=== PATIENT | male | born 1950 | race Caucasian/White ===

== ENCOUNTER 2022-02-10 09:12 | Inpatient (IN) | payer MEDICARE, OTHER ==
[~2022-02-10] VITALS: Ht 165.1 cm; Wt 68.8 kg
[2022-02-10] MEDS ORDERED: LACTULOSE SYRUP 10GM/15ML (ENULOSE) 30ML UDC PO PRN (11:45)
[2022-02-10] MEDS ORDERED: guaiFENesin/CODEINE (ROBITUSSIN AC) 10ML UDC PO PRN (11:45)
[2022-02-10] MEDS ORDERED: LOPERAMIDE 2 MG (IMODIUM) TABLET PO PRN (11:45)
[2022-02-10] MEDS ORDERED: diphenhydrAMINE 25 MG TAB (BENADRYL) PO PRN (11:45)
[2022-02-10] MEDS ORDERED: FLEET ENEMA ADULT 1 EA BTL PR PRN (11:45)
[2022-02-10] MEDS ORDERED: CALCIUM CARBONATE 500 MG (TUMS) TAB.CHEW PO PRN (11:45)
[2022-02-10] MEDS ORDERED: ONDANSETRON 4 MG (ZOFRAN) ORAL DISSOLVE TAB PO PRN (11:45)
[2022-02-10] MEDS ORDERED: DOCUSATE SODIUM 100 MG (COLACE) CAP PO PRN (11:45)
[2022-02-10] MEDS ORDERED: BISACODYL 10 MG SUPP (DULCOLAX) PR PRN (11:45)
[2022-02-10] MEDS ORDERED: ALPRAZolam 0.25 MG (XANAX) TAB PO PRN (11:45)
[2022-02-10] MEDS ORDERED: AMIO200T65 PO (12:44)
[2022-02-10] MEDS ORDERED: POTA-53 PO (12:44)
[2022-02-10] MEDS ORDERED: APIX5TAB PO (12:44)
[2022-02-10] MEDS ORDERED: GLIM4TAB5 PO (12:44)
[2022-02-10] MEDS ORDERED: PANT40TA52 PO (12:44)
[2022-02-10] MEDS ORDERED: FURO80TA3 PO (12:44)
[2022-02-10] MEDS ORDERED: CHOL100048 PO (12:44)
[2022-02-10] MEDS ORDERED: MTP25TSR PO (12:44)
[2022-02-10] MEDS ORDERED: LOSA50TA63 PO (12:44)
[2022-02-10] MEDS ORDERED: ATOR20TA66 PO (12:44)
[2022-02-10] MEDS ORDERED: LEVO100T7 PO (12:44)
[2022-02-10] MEDS ORDERED: CLOP75TA69 PO (12:44)
[2022-02-10] MEDS ORDERED: METF-397 PO (12:44)
[2022-02-10] MEDS ORDERED: HYDR-3820 PO (12:44)
[2022-02-10 14:30] VITALS: BP 127/53
--- NOTE | 2022-02-10 14:51 | Occupational Therapy Eval ---
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 Pt transferred to ARU 02/10/22 for skilled therapy and medication management. Social History Home: Single Level Current Living Status: Spouse Entry Into Home: Stairs With Railing Steps Into Home: 4 ADL-Prior Level of Function SCALE: Activities may be completed with or without assistive devices. 2-Jrmnsfowrz-urjdxlg completes the activity by him/herself with no assistance from a helper. 5-Set-up or Clean-up Assistance-helper sets up or cleans up; patient completes activity. Harrison assists only prior to or following the activity. 4-Supervision or Touching Assistance-helper provides verbal cues and/or touching/steadying and/or contact guard assistance as patient completes activity. Assistance may be provided throughout the activity or intermittently. 3-Partial/Moderate Assistance-helper does LESS THAN HALF the effort. Harrison lifts, holds or supports trunk or limbs, but provides less than half the effort. 2-Substantial/Maximal Assistance-helper does MORE THAN HALF the effort. Harrison lifts or holds trunk or limbs and provides more than half the effort. 8-Teyixlieh-xjexfq does ALL the effort. Patient does none of the effort to complete the activity. Or, the assistance of 2 or more helpers is required for the patient to complete the activity. If activity was not attempted, code reason: 7-Patient Refused. 9-Not Applicable-not attempted and the patient did not perform the activity befo re the current illness, exacerbation or injury. 10-Not Attempted due to Environmental Limitations-(lack of equipment, weather re straints, etc.). 88-Not Attempted due to Medical Conditions or Safety Concerns. ADL PLOF Comments Pt reports requiring assistance with ADLs at PLOF, using a walker and w/c for functional mobility. His assists with showering, UE/LE dressing, and footwear, pt able to complete toileting, oral care and eating independently. He has a walk in shower with SC, GBS and hand held shower head Self Care: Needed Some Help Functional Cognition: Independent DME/Equipment: Bath Chair, Grab Bars, Shower, Shower Hose Chief Projectionist DME/Equipment Comments walker, w/c OT Current Status Subjective Pt agreeable to OT evaluation, then OT/PT cotreat. Rates pain 3-4/10 in L stump Mental Status/Objective Patient Orientation: Person, Place, Situation Attachments: Other-See Comments (stump immobilizer L) Current Glasses/Contacts: No Hearing Aids: No Dentures/Partials: No Hand Dominance: Right Upper Extremity ROM Decreased shoulder movement bilaterally (pt's PLOF). WFL at elbow/wrist/fingers. RUE shoulder abduction to approx 40 degrees, LUE approx 20 degrees. Upper Extremity Coordination WFL Upper Extremity Sensation Tingling/numbness bilateral hands/fingers. Upper Extremity Strength grossly 2+/5 BUEs ADL-Treatment Eating (QC): 6 (per pt report) Oral Hygiene (QC): 5 (per pt report) Shower/Bathe Self (QC): 3 (Min A with sponge bath at bed level, pt required assistance washing buttocks.) Upper Body Dressing (QC): 3 (Mod A overall. Max A doffing shirt at bed level, min A donning shirt overhead at EOB.) Lower Body Dressing (QC): 2 (Max A donning/doffing pants at bed level. Total assist would be required with stump immobilizer) On/Off Footwear (QC): 3 (Min A donning/doffing R gripper sock.) Toileting Hygiene (QC): 2 (Max A at bed level with clothing management and posterior hygiene. Pt able to complete pericare.) Other Treatments OT evaluation complete. OT/PT cotreat due to skill of 2 clinicians required which a rehabilitation case coordinator could not perform in order to coordinate UE/LEs, decrease fall risk, and due to pt's limitations in strength, activity tolerance, transfers and mobility. Pt completed sponge bath and dressing at bed level. Transferred supine to sit EOB, then SPT to w/c. Pt performed w/c mobility in hallways, then to therapy gym. Pt stood x3 in parallel bars, attempted to take steps "hopping" on R foot with stands, seated rest breaks between trials. Pt then seated exercises, with focus on strengthening muscles in preparation for standing tasks. Pt stood in parallel bars, completing reaching task while standing. Pt attempted to reach for objects on L side and transition them across midline towards R side, but pt had difficulty. On the next stand, pt focused on just removing 1 hand from the bar at a time, pt had difficulty removing L hand from parallel bar, only able to complete with R, x5 reps, min A with standing balance. Pt propelled w/c around SDU common area, then back to his room. SPT to recliner, mod A. Post tx, pt in recliner, call light in reach and all needs met. Education OT Patient Education: Correct positioning, Energy conservation, Modified ADL techniques, Progress toward Goal/Update tx plan, Purpose of tx/functional activities, Rehab process Teaching Recipient: Patient Teaching Methods: Discussion Response to Teaching: Verbalize Understanding OT Short Term Goals Short Term Goals Time Frame: Feb 24, 2022 Shower/bathe self: 3 Lower body dressin OT Radio Dispatcher Goals Radio Dispatcher Goals Time Frame: Mar 10, 2022 Eating (QC): 6 Oral Hygiene (QC): 6 Toileting Hygiene (QC): 6 Shower/Bathe Self (QC): 4 Upper Body Dressing (QC): 4 Lower Body Dressing (QC): 3 On/Off Footwear (QC): 3 Additional Goals: 1-Demonstrate ADL Tasks, 2-Verbalize Understanding, 3- ImproveStrength/Lalit 1=Demonstrate adherence to instructed precautions during ADL tasks. 2=Patient will verbalize/demonstrate understanding of assistive devices/modifications for ADL. 3=Patient will improve strength/tolerance for activity to enable patient to perform ADL's. OT Education/Plan Problem List/Assessment Assessment: Decreased Activ Tolerance, Decreased UE Strength, Dependent Transfers, Impaired Bed Mobility, Impaired Funct Balance, Impaired I ADL's, Impaired Self-Care Skills, Restricted Funct UE ROM Discharge Recommendations Plan/Recommendations: Continue POC Treatment Plan/Plan of Care Patient would benefit from OT for education, treatment and training to promote independence in ADL's, mobility, safety and/or upper extremity function for ADL's. Plan of Care: ADL Retraining, Functional Mobility, Group Exercise/Act as Ind, UE Funct Exercise/Act, UE Neuromus Re-Ed/Coord, W/C Management Training Treatment Duration: Mar 10, 2022 Frequency: At least 5 of 7 days/Wk (IRF) Estimated Hrs Per Day: 1.5 hours per day Agreement: Yes Rehab Potential: Fair Time/GCodes Start Time: 14:10 Stop Time: 15:40 Total Time Billed (hr/min): 90 Billed Treatment Time 0439-3233 OT eval, [id number] OT/PT cotreat 1, EVM (10'), ADL 2 (30'), FA 3 (50') OCTAVIA ORLANDO OT Feb 10, 2022 14:51
--- NOTE | 2022-02-10 15:34 | Physical Therapy Evaluation ---
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 Pt transferred to ARU 02/10/22 for skilled therapy and medication management. Reviewed History: Yes Social History Home: Single Level Current Living Status: Spouse Entry Into Home: Stairs With Railing PT Steps Into Home: 4 Prior Prior Level of Function SCALE: Activities may be completed with or without assistive devices. 2-Htzcmvluhy-wezzkcg completes the activity by him/herself with no assistance from a helper. 5-Set-up or Clean-up Assistance-helper sets up or cleans up; patient completes activity. Poyntelle assists only prior to or following the activity. 4-Supervision or Touching Assistance-helper provides verbal cues and/or touching/steadying and/or contact guard assistance as patient completes activity. Assistance may be provided throughout the activity or intermittently. 3-Partial/Moderate Assistance-helper does LESS THAN HALF the effort. Poyntelle lifts, holds or supports trunk or limbs, but provides less than half the effort. 2-Substantial/Maximal Assistance-helper does MORE THAN HALF the effort. Poyntelle lifts or holds trunk or limbs and provides more than half the effort. 1-Bshzhqqrk-sdriyj does ALL the effort. Patient does none of the effort to complete the activity. Or, the assistance of 2 or more helpers is required for the patient to complete the activity. If activity was not attempted, code reason: 7-Patient Refused. 9-Not Applicable-not attempted and the patient did not perform the activity before the current illness, exacerbation or injury. 10-Not Attempted due to Environmental Limitations-(lack of equipment, weather restraints, etc.). 88-Not Attempted due to Medical Conditions or Safety Concerns. Bed Mobility: 6 Transfers (B,C,W/C): 3 Gait: 3 Stairs: 3 Wheelchair Mobility: 6 Indoor Mobility (Ambulation): Needed Some Help Stairs: Needed Some Help Prior Devices Use: Manual wheelchair, Walker PT Evaluation-Current Subjective Patient in bed pre tx, agrees to PT, has 3/10 pain in left residual limb. Will be co-treating with OT for part of tx due to poor patient mobility, strength, endurance, severe debility, coordinate UE and LE during activity, safety and reduce risk of falls. Pt/Family Goals to be independent at home Objective Patient Orientation: Person, Place, Situation ROM/Strength ROM Lower Extremities WNL, except left knee is in immobilizer Strength Lower Extremities RLE (hip flexion 3+/5, knee flexion 3+/5, knee extension 4-/5, dorsiflexion 3/5), LLE hip flexion 3+/5 Integumentary/Posture Integumentary see nurse notes Sensory Vision: Functional Hearing: Functional Hand Dominance: Right Sensation Right Lower Extremit: Impaired Sensation Left Lower Extremity: Impaired Transfers Roll Left & Right (QC): 4 Sit to Lying (QC): 3 Lying to Sitting/Side of Bed(Q: 3 Sit to Stand (QC): 3 Chair/Orp-gq-Pviio Xfer(QC): 3 Toilet Transfer (QC): 3 Car Transfer (QC): 3 Patient performed rolling with SBA, supine <-> sit mod assist, sit <-> stand and transfers mod assist, car transfer mod assist. Patient used a RW for transfers, was able to pivot on right foot with some difficulty. Gait Does the Patient Walk?: Yes Mode of Locomotion: Both Anticipated Mode of Locomotion: Both Walk 10 feet (QC): 88 Walk 50 ft with 2 Turns(QC): 88 Walk 150 ft (QC): 88 Walking 10ft/uneven surface-QC: 88 Distance: 2'x3 Gait Assistive Device: Parallel Bars Comments/Gait Description Patient can ambulate 2' in the parallel bars with mod assist, patient can take a few small hops with right foot, poor foot clearance Wheelchair Training Does the Pt Use a Wheelchair?: Yes Distance: 150'x2 Wheel 50 ft with 2 turns (QC): 4 Wheel 150 ft (QC): 4 Type of Wheelchair: Manual SBA Stairs 1 Step (curb) (QC): 88 4 Steps (QC): 88 12 Steps (QC): 88 Balance Sitting Static: Fair Sitting Dynamic: Fair Standing Static: Poor Standing Dynamic: Poor Picking up an Object (QC): 88 Treatment Dressing and bathing, manually resisted leg press 3 sets of 10, standing activity in parallel bars working on letting go with one hand/alternating. PT performed bed mobility and transfer training, WC mobility, ambulation, standing and balance and positioning during dressing and bathing, standing during standing activity, LE strengthening, OT performed bathing, dressing, standing activity, UE positioning and safety during activity. Assessment/Needs Patient in recliner post tx with nurse call, phone, tray, all needs met. Patient has impaired mobility, strength, endurance, balance. Patient needs mod assist for sit to stand and transfers. Good motivation. Rehab Potential: Fair PT Short Term Goals Short Term Goals Time Frame: Feb 17, 2022 Roll Left & Right: 6 Sit to lyin (Batsheva) Lying to sitting on side of be: 3 (Batsheva) Sit to stand: 3 (Batsheva) Chair/vpu-cx-dkedc transfer: 3 Walk 10 feet: 3 (Batsheva) PT Train Operations Manager Goals Train Operations Manager Goals PT [facility] Goals Time Frame: Mar 03, 2022 Roll Left & Right (QC): 6 Sit to Lying (QC): 4 (CGA) Lying-Sitting on Side/Bed(QC): 4 (CGA) Sit to Stand (QC): 4 (CGA) Chair/Kkh-ym-Ylsyy Xfer(QC): 4 (CGA) Toilet Transfer (QC): 4 (CGA) Car Transfer (QC): 4 (CGA) Does the Patient Walk: Yes Walk 10 feet (QC): 4 (CGA) Walk 50ft with 2 Turns (QC): 88 Walk 150 ft (QC): 88 Walking 10ft on Uneven Surface: 4 (CGA) 1 Step (curb) (QC): 88 4 Steps (QC): 88 12 Steps (QC): 88 Picking up an Object (QC): 4 (CGA) Wheel 50 feet with 2 turns (QC: 6 Wheel 150 feet: 6 PT Plan Problem List Problem List: Activity Tolerance, Functional Strength, Safety, Balance, Gait, Transfer, Bed Mobility, ROM Treatment/Plan Treatment Plan: Continue Plan of Care Treatment Plan: Bed Mobility, Education, Functional Activity Lalit, Functional Strength, Group Therapy, Gait, Safety, Therapeutic Exercise, Transfers Treatment Duration: Mar 03, 2022 Frequency: At least 5 of 7 days/Wk (IRF) Estimated Hrs Per Day: 1.5 hours per day Patient and/or Family Agrees t: Yes Safety Risks/Education Patient Education: Gait Training, Transfer Techniques, W/C Management, Safety Issues Teaching Recipient: Patient Teaching Methods: Demonstration, Discussion Response to Teaching: Reinforcement Needed Discharge Recommendations Plan Patient will perform bed mobility and transfer training, balance and endurance training, functional strengthening, stair training, gait training, and education, to improve functional mobility and independence at home. Therapy Discharge Recommendati: Scheduled Assistance, Home & Family, Post Acute PT Time/GCodes Time In: 1400 Time Out: 1540 Total Billed Treatment Time: 90 Total Billed Treatment 1 visit EVM 10' FA 80' PT eval from [id number], OT eval from [id number], co-treat from [id number] JESSICA FOX PT Feb 10, 2022 15:34
--- NOTE | 2022-02-10 15:36 | PM&R Post Admission Assessment ---
PM&R HP Date of Visit: Feb 10, 2022 Time of Visit: 16:00 History of Present Illness CC: Left BKA HPI: This is a 71yoWM clinic patient of Dr Lai in [place] and Dr [facility] [place] who presents to ARU following a left BKA on 02/07/22 following vascular procedure of left leg who is in need of assistive devices and aggressive rehab in order to return home to live independently. He is currently constipated and obtains good pain control with Hydrocodone. I have reviewed his home meds and restarted all. Voiding well due to Lasix. PLOF was independent without use of assistive devices. CLOF moderate assist with bed mobility and maximum assist with sit to stand and total dependence in transfers. Past Dagubid-Luyoay-Iefwcf Hx Past Med/Social Hx: Reviewed Nursing Past Med/Soc Hx, Reviewed and Corrections made Patient Social History Marrital Status: Employed/Student: retired Alcohol Use: Denies Use Smoking Status: Never a Smoker Past Medical History Surgeries: Orthopedic Cardiac: Atrial Fibrillation, Chronic Edema/Swelling, Coronary Artery Disease, High Cholesterol, Hypertension, Peripheral Vascular Neurological: Neuropathy Genitourinary: Benign Prostatic Hyperpl Gastrointestinal: Gastroesophageal Reflux Musculoskeletal: Amputee, Arthritis Endocrine: Hypothyroidsim, Diabetes, Non-Insulin dep Self Care: Needed Some Help Functional Cognition: Independent Eatin (per pt report) Oral Hygiene: 5 (per pt report) Shower/Bathe Self: 3 (Min A with sponge bath at bed level, pt required assistance washing buttocks.) Upper Body Dressin (Mod A overall. Max A doffing shirt at bed level, min A donning shirt overhead at EOB.) Lower Body Dressin (Max A donning/doffing pants at bed level. Total assist would be required with stump immobilizer) On/Off Footwear: 3 (Min A donning/doffing R gripper sock.) Toileting Hygiene: 2 (Max A at bed level with clothing management and posterior hygiene. Pt able to complete pericare.) PM&R Allergy/Meds/Data Review Allergies Coded Allergies: lisinopril (Verified Allergy, Unknown, 02/10/22) niacin (Verified Allergy, Unknown, 02/10/22) oxycodone (Verified Allergy, Unknown, 02/10/22) rivaroxaban (Verified Allergy, Unknown, 02/10/22) Uncoded Allergies: CI Pigment Blue 63 (Adverse Reaction, Severe, Itching, 02/10/22) Home Medications Scheduled Amiodarone HCl (Amiodarone HCl), 200 MG PO DAILY, (Reported) Apixaban (Eliquis), 5 MG PO BID, (Reported) Atorvastatin Calcium (Atorvastatin Calcium), 20 MG PO DAILY, (Reported) Cholecalciferol (Vitamin D3) (Vitamin D3), 25 MCG PO DAILY, (Reported) Clopidogrel Bisulfate (Plavix), 75 MG PO DAILY, (Reported) Furosemide (Furosemide), 80 MG PO DAILY, (Reported) Glimepiride (Glimepiride), 4 MG PO BID, (Reported) Levothyroxine Sodium (Levothyroxine Sodium), 100 MCG PO DAILY, (Reported) Losartan Potassium (Losartan Potassium), 50 MG PO DAILY, (Reported) Metformin HCl (Metformin HCl), 500 MG PO QID, (Reported) Metoprolol Succinate (Metoprolol Succinate), 25 MG PO DAILY, (Reported) Pantoprazole Sodium (Pantoprazole Sodium), 40 MG PO DAILY, (Reported) Potassium Chloride (K-Tab ER), 20 MEQ PO TID, (Reported) Scheduled PRN Hydrocodone/Acetaminophen (Hydrocodone-Acetamin 10-325 mg), 1 EACH PO Q6H PRN for PAIN-MODERATE (5-7), (Reported) Current Medications Current Medications Reviewed Review of Systems Constitutional: see HPI, malaise, weakness EENTM: no symptoms reported Respiratory: no symptoms reported Cardiovascular: no symptoms reported Gastrointestinal: constipation Genitourinary: no symptoms reported Musculoskeletal: no symptoms reported Skin: no symptoms reported Psychiatric/Neurological: No Symptoms Reported All Other Systems Reviewed Negative Unless Noted: Yes Physical Exam Physical Exam Vital Signs Capillary Refill : Height, Weight, BMI Height: '" Weight: lbs. oz. kg; BMI Method: General Appearance: No Apparent Distress, WD/WN, Chronically ill Eyes: Bilateral Eye Normal Inspection, Bilateral Eye PERRL HEENT: PERRL/EOMI, Normal ENT Inspection, Pharynx Normal Neck: Full Range of Motion, Normal Inspection, Non Tender, Supple, Carotid Bruit Respiratory: Chest Non Tender, Lungs Clear, Normal Breath Sounds, No Accessory Muscle Use, No Respiratory Distress Cardiovascular: No Edema, No Gallop, No JVD, No Murmur, Normal Peripheral Pulses, Irregularly Irregular Gastrointestinal: Normal Bowel Sounds, No Organomegaly, No Pulsatile Mass, Non Tender, Soft Back: Normal Inspection, No CVA Tenderness, No Vertebral Tenderness Extremity: Normal Capillary Refill, Normal Inspection, Normal Range of Motion, Non Tender, No Calf Tenderness, No Pedal Edema Neurologic/Psychiatric: Alert, Oriented x3, Normal Mood/Affect, body worker II-XII Norm as Tested, Abnormal Gait, Motor Weakness (left sided lower extremity BKA) Skin: Normal Color, Warm/Dry Lymphatic: No Adenopathy PM&R Medical Assessment & Plan REHAB/MEDICAL ASSESSMENT AND PLAN: REHAB IMPAIRMENT GROUP: [facility] ETIOLOGIC DIAGNOSIS: [facility] The comorbidities that impact the patients function and/or functional outcome by: left BKA, fall risk, dependence on transfers with sit to stand REHAB PLAN: The patient is being admitted to our comprehensive inpatient rehabilitation facility and can tolerate the intensity of service consisting of at least: 180 minutes of therapy a day, 5 out of 7 days a week Rehab treatment will consist of: PT OT will focus on regaining function in order to regain enough independence in order to return home with The patient/family has a good understanding of our discharge process and will benefit from an interdisciplinary inpatient rehabilitation program. The patient has potential to make improvement and is in need of at least two of the following multidisciplinary therapies including but not limited to physical, occupational, speech, and prosthetics and orthotics. Additionally the patient will need services from respiratory, nutritional services, wound care, psychology, etc. (Customize this to each patient). Given the patients complex condition and risk of further medical complications, rehabilitation services cannot be safely or effectively provided at a lower level of care such as a senior care facility. BARRIERS TO DISCHARGE: [facility] ESTIMATED LOS: 14 days DISPOSITION: Home RELEVANT CHANGES SINCE PREADMISSION SCREENING: I have compared the patients medical and functional status at the time of the preadmission screening and there are: no changes PROGNOSIS: Good REHABILITATION GOALS: 1.PT OT will focus on regaining function in order to regain enough independence in order to return home with All the above goals were reviewed with the patient and he/she is in agreement. By signing this document, I acknowledge that I have personally performed a full physical examination on this patient within 24 hours of admission to this inpatient rehabilitation facility and have determined the patient to be able to tolerate the above course of treatment at an intensive level for a reasonable period of time. I will be completing a detailed individualized Plan of Care for this patient by day #4 of the patients stay based upon the Preadmission Screen, the Post-Admission Evaluation, and the therapy evaluations. Admission Dx/Comorbidities: (1) Amputation of left lower extremity below knee ICD Codes: S88.112A - Complete traumatic amputation at level between knee and ankle, left lower leg, initial encounter Assessment/Plan Assessment and Plan Assess & Plan/Chief Complaint Assessment: GEORGINA 02/07/22 Severe PVD PAF OAC HTN HLP DM Hypothyroidism Plan: Home meds SSI PT OT Pain control BM treatment XIOMARA DICKENS DO Feb 10, 2022 15:36
[2022-02-10] MEDS: inSUlin ASPART (NovoLOG) 1 UNIT/0.01 ML (CHARGE PER UNIT) SC SCH ×2 (17:39→20:55)
[2022-02-10] MEDS: KCL 20 MEQ TAB (K-DUR) PO SCH (17:39)
[2022-02-10] MEDS: metFORMIN 500 MG (GLUCOPHAGE) TAB PO SCH ×2 (17:39→20:48)
[2022-02-10] MEDS: GLIMEPIRIDE 4 MG (AMARYL) TAB PO SCH (17:39)
[2022-02-10 20:13] VITALS: BP 127/46
[2022-02-10] MEDS: polyethylene glycoL POWDER 17 GM (MIRALAX) PACK PO SCH (20:46)
[2022-02-10] MEDS: APIXABAN 5 MG (ELIQUIS) TABLET PO SCH (20:48)
[2022-02-10] MEDS: DOCUSATE SODIUM 100 MG (COLACE) CAP PO SCH (20:48)
[2022-02-10] MEDS: SENNA W/DOCUSATE (SENOKOT S) TABLET PO SCH (20:55)
[2022-02-10] MEDS ORDERED: NON-FORMULARY MEDICATION 1 EA EA (Potassium Chloride (K-Tab ER) 20 MEQ) PO SCH (21:00)
[2022-02-11] MEDS: LEVOTHYROXINE 100 MCG (LEVOTHROID) TAB PO SCH (05:42)
[2022-02-11 05:55] LABS: BASOPHILS % (AUTO) 0 % (0-10); EOSINOPHILS # (AUTO) 0.1 10^3/uL (0.0-0.3); EOSINOPHILS % (AUTO) 1 % (0-10); HEMATOCRIT 36 % (40-54); HEMOGLOBIN 10.8 g/dL (13.3-17.7); LYMPHOCYTES # (AUTO) 1.2 10^3/uL (1.0-4.0); LYMPHOCYTES % (AUTO) 12 % (12-44); MEAN CORPUSCULAR HEMOGLOBIN 25 pg (25-34); MEAN CORPUSCULAR HGB CONC 30 g/dL (32-36); MEAN CORPUSCULAR VOLUME 83 fL (80-99); MEAN PLATELET VOLUME 11.4 fL (9.0-12.2); MONOCYTES # (AUTO) 0.9 10^3/uL (0.0-1.0); MONOCYTES % (AUTO) 9 % (0-12); NEUTROPHILS # (AUTO) 7.7 10^3/uL (1.8-7.8); NEUTROPHILS % (AUTO) 78 % (42-75); PLATELET COUNT 228 10^3/uL (130-400); WHITE BLOOD COUNT 9.9 10^3/uL (4.3-11.0)
[2022-02-11 06:04] LABS: ALBUMIN 3.3 GM/DL (3.2-4.5); POTASSIUM 3.7 MMOL/L (3.6-5.0)
[2022-02-11 06:05] LABS: CALCIUM 9.3 MG/DL (8.5-10.1)
[2022-02-11 06:07] LABS: TOTAL PROTEIN 7.3 GM/DL (6.4-8.2)
--- NOTE | 2022-02-11 06:07 | Individualized Plan of Care ---
Individualized Plan of Care Rehab Nursing IPOC Order Admission Date Feb 10, 2022 at 14:00 Current Orders Orders Admission Order(Inpt,Obs,Sdc) (02/10/22 11:40) Vital Signs: Per Unit Policy ( 08,16,00 (02/10/22 11:40) Jay Jay Roa (02/10/22 11:40) Sequential Compression Device (02/10/22 11:40) Cutting Room Supervisor-Inpt Rehab Con (02/10/22 11:40) Rehab Nursing Orders-Ipoc (02/10/22 11:40) Physical Therapy Rehab Orders (02/10/22 11:40) Occupational Therapy Rehab Ord (02/10/22 11:40) Speech Therapy Rehab Orders (02/10/22 11:40) Cbc With Automated Diff (02/11/22 06:00) Comprehensive Metabolic Panel (02/11/22 06:00) Precautions (Aru) (02/10/22 11:40) Weekly Weight WEEK (02/10/22 11:40) Rehab-Intensity Of Therapy (02/10/22 11:40) Initiate Admission Nursing Pro .admission (02/10/22 11:40) Alprazolam Tablet (Xanax Tablet) (02/10/22 11:45) Calcium Carbonate Chew Tablet (Antacid C (02/10/22 11:45) Diphenhydramine Tablet (Benadryl Tablet) (02/10/22 11:45) Docusate Sodium Capsule (Colace Capsule) (02/10/22 21:00) Docusate Sodium Capsule (Colace Capsule) (02/10/22 11:45) Bisacodyl Suppository (Dulcolax Supposit (02/10/22 11:45) Lactulose Oral Solution (Enulose Oral So (02/10/22 11:45) Na Phos/Na Biphos Enema (Fleet Enema Thomas (02/10/22 11:45) Guaifenesin/Codeine Syrup (Robitussin Ac (02/10/22 11:45) Loperamide Tablet (Imodium Tablet) (02/10/22 11:45) Melatonin Tablet (Melatonin Tablet) (02/10/22 11:45) Polyethylene Glycol Powder Pkt (Miralax (02/10/22 21:00) Ondansetron Oral Dissolve Tab (Zofran (02/10/22 11:45) Senna S Tablet (Senokot S Tablet) (02/10/22 21:00) Acetaminophen Tablet/Caplet (Tylenol T (02/10/22 11:45) Code/Resuscitation (02/10/22 11:40) Initiate Admission Nursing Pro .admission (02/10/22 11:40) Admission Arrival Bed Request (02/10/22 14:04) Patient Visit (02/10/22 ) Pt Eval Moderate Complexity (02/10/22 ) Functional Activities, Ea 15 (02/10/22 ) Amiodarone Tablet (Cordarone Tablet) (02/11/22 09:00) Apixaban Tablet (Eliquis Tablet) (02/10/22 21:00) Atorvastatin Tablet (Lipitor Tablet) (02/11/22 09:00) Clopidogrel Tablet (Plavix Tablet) (02/11/22 09:00) Glimepiride Tablet (Amaryl Tablet) (02/10/22 18:00) Hydrocodone/Apap 10/325 Tablet (Lortab 1 (02/10/22 15:45) Levothyroxine Tablet (Synthroid Tablet) (02/11/22 06:30) Losartan Tablet (Cozaar Tablet) (02/11/22 09:00) Metformin Tablet (Glucophage Tablet) (02/10/22 17:00) Metoprolol Succinate (Xl) Tab (Toprol Xl (02/11/22 09:00) Pantoprazole Tablet (Protonix Tablet) (02/11/22 09:00) (Nf) Cholecalciferol (Vitamin D3) (Vitam (02/11/22 09:00) (Nf) Furosemide (02/11/22 09:00) (Nf) Potassium Chloride (K-Tab Er) (02/10/22 21:00) Accucheck Achs ACHS (02/10/22 15:41) Insulin Aspart (Novolog) (Novolog (Charg (02/10/22 16:00) Potassium Chloride (Tablet) (K Dur Table (02/10/22 18:00) Furosemide Tablet (Lasix Tablet) (02/11/22 09:00) Cholecalciferol Capsule/Tablet (Vitamin (02/11/22 09:00) Cho 75g/M 1snack (21-2400 William) (02/10/22 Dinner) Patient Visit (02/11/22 ) Functional Activities, Ea 15 (02/11/22 ) Exercise Therap, Ea 15 Min (02/11/22 ) Magnesium Citrate Oral Soln (Citrate Of (02/11/22 12:30) Consult Podiatry (02/11/22 12:29) Consult Wound Care Physician (02/11/22 12:29) Rehab Nursing Orders: Ongoing Assess. of Function Status, Bladder Management, Bladder Scan, Bladder Training, Bowel Management, Bowel Training, Disease Management & Educaiton, DVT Prophylaxis, Fall Prevention, Fluid/Electrolyte/Nutrition Mgmt, Infection Prevention, Medication Management & Education, Management of Risks & Complications, Management of Skin Intergrity, Nutrition Management, Pain Management, Patient/Family Support, Safety Management, Wound Management Intensity of Therapy to be met Patient to be seen: Min.3h per day/5 of 7d PT IPOC Problem List: Activity Tolerance, Functional Strength, Safety, Balance, Gait, Transfer, Bed Mobility, ROM Treatment Plan: Continue Plan of Care Bed Mobility, Education, Functional Activity Lalit, Functional Strength, Group Therapy, Gait, Safety, Therapeutic Exercise, Transfers Treatment Duration: Mar 03, 2022 Frequency: At least 5 of 7 days/Wk (IRF) Estimated Hrs Per Day: 1.5 hours per day OT IPOC Problems: Decreased Activ Tolerance, Decreased UE Strength, Dependent Transfers, Impaired Bed Mobility, Impaired Funct Balance, Impaired I ADL's, Impaired Self-Care Skills, Restricted Funct UE ROM OT Treatment, Training and Edu: Yes Plan of Care: ADL Retraining, Functional Mobility, Group Exercise/Act as Ind, UE Funct Exercise/Act, UE Neuromus Re-Ed/Coord, W/C Management Training Treatment Duration: Mar 10, 2022 Frequency: At least 5 of 7 days/Wk (IRF) Estimated Hrs Per Day: 1.[address] IPOC Speech Therapy Treatment Plan: Discontinue ST Treatment Duration: Feb 10, 2022 Frequency: Modified Program (IRF) Estimated Hrs Per Day: Other Cutting Room Supervisor/Case Mgmt Cutting Room Supervisor/Case Managemen: Discharge Planning Dietitian/Assessment Nurse Practitioner Dietitian/Assessment Nurse Practitioner to monitor nutritional status and make changes and/or recommendations as needed and work with speech pathology on dietary upgrades as the occur. Physician IPOC Medical Issues being managed closely and that require the 24 hour availability of a physician: Complicated cardiac history with diabetes and hypoglycemia episodes with recent left below the knee amputation will require close monitoring for any decompensation Medical Issues: Bowel/Bladder Function, DVT Prophylaxis, Falls Precautions, Fluid/Electrolyte/Nutrition Balance, Infection Protection, Pain Management, Wound Care Brief Synthesis of Preadmission Screen, Post-Admission Evaluation, and Therapy Evaluations: PT and OT will focus on the use of assistive devices in order to prevent falls at home and regain return back to independent living with spouse Medical Prognosis: Fair Anticipated Length of Stay: 14 days XIOMARA DICKENS DO Feb 11, 2022 06:07
--- NOTE | 2022-02-11 06:07 | PM&R Progress Note ---
Subjective HPI/CC On Admission Date Seen by Provider: Feb 11, 2022 Time Seen by Provider: 11:30 Subjective/Events-last exam 02/11/2022: Patient doing really well Blood sugars reviewed and holding metformin and oral hypoglycemic agent due to hypoglycemia Pain is controlled Laxatives given Checked meds and labs Review of Systems General: Fatigue Musculoskeletal: leg pain Objective Exam Vital Signs Vital Signs Date Time Temp Pulse Resp B/P (MAP) Pulse Ox O2 Delivery O2 Flow Rate FiO2 02/11/22 20:42 Room Air 02/11/22 20:00 36.8 77 20 169/65 (99) 97 Capillary Refill : General Appearance: No Apparent Distress, WD/WN, Chronically ill HEENT: PERRL/EOMI, Normal ENT Inspection, Pharynx Normal Neck: Full Range of Motion, Normal Inspection, Non Tender, Supple, Carotid Bruit Respiratory: Chest Non Tender, Lungs Clear, Normal Breath Sounds, No Accessory Muscle Use, No Respiratory Distress Cardiovascular: No Edema, No Gallop, No JVD, No Murmur, Normal Peripheral Pulses, Irregularly Irregular Gastrointestinal: Normal Bowel Sounds, No Organomegaly, No Pulsatile Mass, Non Tender, Soft Back: Normal Inspection, No CVA Tenderness, No Vertebral Tenderness Extremity: Normal Capillary Refill, Normal Inspection, Normal Range of Motion, Non Tender, No Calf Tenderness, No Pedal Edema Neurologic/Psychiatric: Alert, Oriented x3, Normal Mood/Affect, telephone mechanic II-XII Norm as Tested, Abnormal Gait, Motor Weakness (left sided lower extremity BKA) Skin: Normal Color, Warm/Dry Lymphatic: No Adenopathy Results/Procedures Lab Patient resulted labs reviewed. FIM Transfers Therapy Code Descriptions/Definitions Functional [place] Measure: 0=Not Assessed/NA 4=Minimal Assistance 1=Total Assistance 5=Supervision or Setup 2=Maximal Assistance 6=Modified [place] 3=Moderate Assistance 7=Complete IndependenceSCALE: Activities may be completed with or without assistive devices. 2-Kswgiiisaf-ptipnly completes the activity by him/herself with no assistance from a helper. 5-Set-up or Clean-up Assistance-helper sets up or cleans up; patient completes activity. [place] assists only prior to or following the activity. 4-Supervision or Touching Assistance-helper provides verbal cues and/or touching/steadying and/or contact guard assistance as patient completes activity. Assistance may be provided throughout the activity or intermittently. 3-Partial/Moderate Assistance-helper does LESS THAN HALF the effort. [place] lifts, holds or supports trunk or limbs, but provides less than half the effort. 2-Substantial/Maximal Assistance-helper does MORE THAN HALF the effort. [place] lifts or holds trunk or limbs and provides more than half the effort. 4-Injzbcyhu-iqpqoy does ALL the effort. Patient does none of the effort to complete the activity. Or, the assistance of 2 or more helpers is required for the patient to complete the activity. If activity was not attempted, code reason: 7-Patient Refused. 9-Not Applicable-not attempted and the patient did not perform the activity before the current illness, exacerbation or injury. 10-Not Attempted due to Environmental Limitations-(lack of equipment, weather restraints, etc.). 88-Not Attempted due to Medical Conditions or Safety Concerns. Roll Left to Right (QC): 4 Sit to Lying (QC): 3 Sit to Stand (QC): 3 Chair/Nan-kn-Rbaty Xfer(QC): 3 Car Transfer (QC): 3 Gait Training Does the Patient Walk?: Yes Walk 10 feet (QC): 88 Walk 50 ft with 2 Turns(QC): 88 Walk 150 ft (QC): 88 Walking 10ft/uneven surface-QC: 88 Gait Assistive Device: Parallel Bars Wheelchair Training Does the Pt Use a Wheelchair?: Yes Distance: 150'x2 Wheel 50 ft with 2 turns (QC): 4 Wheel 150 ft (QC): 4 Type of Wheelchair: Manual Stair Training 1 Step (curb) (QC): 88 4 Steps (QC): 88 12 Steps (QC): 88 Balance Picking up an Object (QC): 88 ADL-Treatment Eating (QC): 6 (per pt report) Oral Hygiene (QC): 5 (per pt report) Shower/Bathe Self (QC): 3 (Min A with sponge bath at bed level, pt required assistance washing buttocks.) Upper Body Dressing (QC): 3 (Mod A overall. Max A doffing shirt at bed level, min A donning shirt overhead at EOB.) Lower Body Dressing (QC): 2 (Max A donning/doffing pants at bed level. Total assist would be required with stump immobilizer) On/Off Footwear (QC): 3 (Min A donning/doffing R gripper sock.) Toileting Hygiene (QC): 2 (Max A at bed level with clothing management and posterior hygiene. Pt able to complete pericare.) Assessment/Plan Assessment and Plan Assess & Plan/Chief Complaint Assessment: GEORGINA 02/07/22 Severe PVD PAF OAC HTN HLP DM Hypothyroidism Hypoglycemia holding metformin and glimepiride Constipation Plan: Home meds SSI PT OT Pain control BM treatment 02/11/2022: Hold diabetic meds due to hypoglycemia Pain control Bowel regimen (1) Amputation of left lower extremity below knee XIOMARA DICKENS DO Feb 11, 2022 06:07
[2022-02-11 06:09] LABS: BILIRUBIN,TOTAL 0.5 MG/DL (0.1-1.0)
[2022-02-11 06:10] LABS: CREATININE SERUM 0.94 MG/DL (0.60-1.30)
[2022-02-11] MEDS: inSUlin ASPART (NovoLOG) 1 UNIT/0.01 ML (CHARGE PER UNIT) SC SCH ×4 (06:16→20:30)
[2022-02-11 08:35] VITALS: BP 95/58
[2022-02-11 08:42] VITALS: BP 99/38
[2022-02-11] MEDS ORDERED: NON-FORMULARY MEDICATION 1 EA EA (Cholecalciferol (Vitamin D3) (Vitamin D3) 25 MCG) PO SCH (09:00)
[2022-02-11] MEDS ORDERED: LOSARTAN 50 MG (COZAAR) TAB PO SCH (09:00)
[2022-02-11] MEDS ORDERED: NON-FORMULARY MEDICATION 1 EA EA (Furosemide 80 MG) PO SCH (09:00)
--- NOTE | 2022-02-11 10:27 | Physical Therapy Daily Note ---
PT Daily Note-Current Subjective Pt up in chair, initially agreeable but then kept stating, "I'm sorry, I just don't feel well." Pt groaning frequently and stating he was "really cold". Nursing made aware of Pt's poor tolerance and current c/o. Mental Status Patient Orientation: Person, Place, Time, Situation Attachments: Knee Immobilizer Transfers SCALE: Activities may be completed with or without assistive devices. 6-Ywuswcpcuo-cnhsvax completes the activity by him/herself with no assistance from a helper. 5-Set-up or Clean-up Assistance-helper sets up or cleans up; patient completes activity. [place] assists only prior to or following the activity. 4-Supervision or Touching Assistance-helper provides verbal cues and/or touching/steadying and/or contact guard assistance as patient completes activity. Assistance may be provided throughout the activity or intermittently. 3-Partial/Moderate Assistance-helper does LESS THAN HALF the effort. [place] lifts, holds or supports trunk or limbs, but provides less than half the effort. 2-Substantial/Maximal Assistance-helper does MORE THAN HALF the effort. [place] lifts or holds trunk or limbs and provides more than half the effort. 9-[place]-dsedcs does ALL the effort. Patient does none of the effort to complete the activity. Or, the assistance of 2 or more helpers is required for the patient to complete the activity. If activity was not attempted, code reason: 7-Patient Refused. 9-Not Applicable-not attempted and the patient did not perform the activity be fore the current illness, exacerbation or injury. 10-Not Attempted due to Environmental Limitations-(lack of equipment, weather restraints, etc.). 88-Not Attempted due to Medical Conditions or Safety Concerns. Roll Left & Right (QC): 6 Sit to Lying (QC): 6 Sit to Stand (QC): 3 Chair/Ivs-ui-Okfrj Xfer(QC): 3 Attempted sit<->stand to walker for transfer to [facility]. Pt stood with mod A x 1 but unable to obtain upright balance and returned to sitting in recliner. Pt reported feeling significantly weaker and agreed to return to bed for LE ex. At that time, recliner moved to allow transfer to (L) and performed SPT to (L) with mod A x 1. Exercises Supine Ex: Ankle pumps, Heel Slides, Hip abd/add Supine Reps: 15 Treatments Transfers and LE ex. Treatment modified due to Pt feeling unwell. In bed on (R) side with all needs met and nursing made aware of Pt c/o. Assessment Current Status: Poor Progress Pt activity limited this date due to feeling unwell. PT Short Term Goals Short Term Goals Time Frame: Feb 17, 2022 Roll Left & Right: 6 Sit to lyin (Batsheva) Lying to sitting on side of be: 3 (Batsheva) Sit to stand: 3 (Batsheva) Chair/gad-iq-gouqx transfer: 3 Walk 10 feet: 3 (Batsheva) PT [place] Goals [place] Goals PT Assisted Goals Time Frame: Mar 03, 2022 Roll Left & Right (QC): 6 Sit to Lying (QC): 4 (CGA) Lying-Sitting on Side/Bed(QC): 4 (CGA) Sit to Stand (QC): 4 (CGA) Chair/Omq-gx-Wuucf Xfer(QC): 4 (CGA) Toilet Transfer (QC): 4 (CGA) Car Transfer (QC): 4 (CGA) Does the Patient Walk: Yes Walk 10 feet (QC): 4 (CGA) Walk 50ft with 2 Turns (QC): 88 Walk 150 ft (QC): 88 Walking 10ft on Uneven Surface: 4 (CGA) 1 Step (curb) (QC): 88 4 Steps (QC): 88 12 Steps (QC): 88 Picking up an Object (QC): 4 (CGA) Wheel 50 feet with 2 turns (QC: 6 Wheel 150 feet: 6 PT Plan Problem List Problem List: Activity Tolerance, Functional Strength, Safety, Balance, Gait, Transfer, Bed Mobility, ROM Treatment/Plan Treatment Plan: Continue Plan of Care Treatment Plan: Bed Mobility, Education, Functional Activity Lalit, Functional Strength, Group Therapy, Gait, Safety, Therapeutic Exercise, Transfers Treatment Duration: Mar 03, 2022 Frequency: At least 5 of 7 days/Wk (IRF) Estimated Hrs Per Day: 1.5 hours per day Patient and/or Family Agrees t: Yes Time/GCodes Time In: 0800 Time Out: 08 Total Billed Treatment Time: 24 Total Billed Treatment 1, FA x 16', Ex x 8' JORY EASLEY DPT Feb 11, 2022 10:27
[2022-02-11] MEDS: DOCUSATE SODIUM 100 MG (COLACE) CAP PO SCH ×2 (10:37→20:29)
[2022-02-11] MEDS: VITAMIN D3 25 MCG (1,000 UNITS) TABLET PO SCH (10:37)
[2022-02-11] MEDS: SENNA W/DOCUSATE (SENOKOT S) TABLET PO SCH ×2 (10:37→20:30)
[2022-02-11] MEDS: GLIMEPIRIDE 4 MG (AMARYL) TAB PO SCH ×2 (10:38→17:26)
[2022-02-11] MEDS: PANTOPRAZOLE 40 MG (PROTONIX) TAB PO SCH (10:38)
[2022-02-11] MEDS: APIXABAN 5 MG (ELIQUIS) TABLET PO SCH ×2 (10:38→20:30)
[2022-02-11] MEDS: FUROSEMIDE 40 MG (LASIX) TAB PO SCH (10:38)
[2022-02-11] MEDS: CLOPIDOGREL 75 MG (PLAVIX) TABLET PO SCH (10:39)
[2022-02-11] MEDS: AMIODARONE 200 MG (CORDARONE) TAB PO SCH (10:39)
[2022-02-11] MEDS: metFORMIN 500 MG (GLUCOPHAGE) TAB PO SCH ×3 (10:39→17:26)
[2022-02-11] MEDS: KCL 20 MEQ TAB (K-DUR) PO SCH ×3 (10:39→19:35)
[2022-02-11] MEDS: polyethylene glycoL POWDER 17 GM (MIRALAX) PACK PO SCH ×2 (10:40→20:30)
[2022-02-11 10:47] VITALS: BP 107/47
[2022-02-11] MEDS ORDERED: MAGNESIUM CITRATE 300 ML BTL PO PRN (12:30)
[2022-02-11 20:00] VITALS: BP 169/65
[2022-02-12] MEDS: inSUlin ASPART (NovoLOG) 1 UNIT/0.01 ML (CHARGE PER UNIT) SC SCH ×4 (05:18→20:57)
[2022-02-12] MEDS: LEVOTHYROXINE 100 MCG (LEVOTHROID) TAB PO SCH (06:30)
--- NOTE | 2022-02-12 07:35 | PM&R Progress Note ---
Subjective HPI/CC On Admission Date Seen by Provider: Feb 12, 2022 Time Seen by Provider: 12:00 Subjective/Events-last exam 02/12/2022: Patient doing pretty well at bedside Blood sugar is 99 after being very low Suppository produced a small bowel movement so we will initiate more laxatives o r Holding metoprolol due to low blood pressure Holding losartan as of yesterday due to low blood pressure Mag citrate is being used for constipation today 02/11/2022: Patient doing really well Blood sugars reviewed and holding metformin and oral hypoglycemic agent due to hypoglycemia Pain is controlled Laxatives given Checked meds and labs Review of Systems Gastrointestinal: Constipation Musculoskeletal: leg pain Objective Exam Vital Signs Vital Signs Date Time Temp Pulse Resp B/P (MAP) Pulse Ox O2 Delivery O2 Flow Rate FiO2 02/12/22 08:18 36.7 78 20 101/46 (64) 97 Room Air Capillary Refill : General Appearance: No Apparent Distress, WD/WN, Chronically ill HEENT: PERRL/EOMI, Normal ENT Inspection, Pharynx Normal Neck: Full Range of Motion, Normal Inspection, Non Tender, Supple, Carotid Bruit Respiratory: Chest Non Tender, Lungs Clear, Normal Breath Sounds, No Accessory Muscle Use, No Respiratory Distress Cardiovascular: No Edema, No Gallop, No JVD, No Murmur, Normal Peripheral Pulses, Irregularly Irregular Gastrointestinal: Normal Bowel Sounds, No Organomegaly, No Pulsatile Mass, Non Tender, Soft Back: Normal Inspection, No CVA Tenderness, No Vertebral Tenderness Extremity: Normal Capillary Refill, Normal Inspection, Normal Range of Motion, Non Tender, No Calf Tenderness, No Pedal Edema Neurologic/Psychiatric: Alert, Oriented x3, Normal Mood/Affect, central supply clerk II-XII Norm as Tested, Abnormal Gait, Motor Weakness (left sided lower extremity BKA) Skin: Normal Color, Warm/Dry Lymphatic: No Adenopathy Results/Procedures Lab Patient resulted labs reviewed. FIM Transfers Therapy Code Descriptions/Definitions Functional [place] Measure: 0=Not Assessed/NA 4=Minimal Assistance 1=Total Assistance 5=Supervision or Setup 2=Maximal Assistance 6=Modified [place] 3=Moderate Assistance 7=Complete IndependenceSCALE: Activities may be completed with or without assistive devices. 6-Ssawrmbtyx-qeycfps completes the activity by him/herself with no assistance from a helper. 5-Set-up or Clean-up Assistance-helper sets up or cleans up; patient completes activity. [place] assists only prior to or following the activity. 4-Supervision or Touching Assistance-helper provides verbal cues and/or touching/steadying and/or contact guard assistance as patient completes activ ity. Assistance may be provided throughout the activity or intermittently. 3-Partial/Moderate Assistance-helper does LESS THAN HALF the effort. [place] lifts, holds or supports trunk or limbs, but provides less than half the effort. 2-Substantial/Maximal Assistance-helper does MORE THAN HALF the effort. [place] lifts or holds trunk or limbs and provides more than half the effort. 0-[place]-bmmjtp does ALL the effort. Patient does none of the effort to complete the activity. Or, the assistance of 2 or more helpers is required for the patient to complete the activity. If activity was not attempted, code reason: 7-Patient Refused. 9-Not Applicable-not attempted and the patient did not perform the activity before the current illness, exacerbation or injury. 10-Not Attempted due to Environmental Limitations-(lack of equipment, weather restraints, etc.). 88-Not Attempted due to Medical Conditions or Safety Concerns. Roll Left to Right (QC): 6 Sit to Lying (QC): 6 Sit to Stand (QC): 3 Chair/Qcr-sa-Vnvun Xfer(QC): 3 Car Transfer (QC): 3 Gait Training Does the Patient Walk?: Yes Walk 10 feet (QC): 88 Walk 50 ft with 2 Turns(QC): 88 Walk 150 ft (QC): 88 Walking 10ft/uneven surface-QC: 88 Gait Assistive Device: Parallel Bars Wheelchair Training Does the Pt Use a Wheelchair?: Yes Distance: 150'x2 Wheel 50 ft with 2 turns (QC): 4 Wheel 150 ft (QC): 4 Type of Wheelchair: Manual Stair Training 1 Step (curb) (QC): 88 4 Steps (QC): 88 12 Steps (QC): 88 Balance Picking up an Object (QC): 88 ADL-Treatment Eating (QC): 6 (per pt report) Oral Hygiene (QC): 5 (per pt report) Shower/Bathe Self (QC): 3 (Min A with sponge bath at bed level, pt required assistance washing buttocks.) Upper Body Dressing (QC): 3 (Mod A overall. Max A doffing shirt at bed level, min A donning shirt overhead at EOB.) Lower Body Dressing (QC): 2 (Max A donning/doffing pants at bed level. Total assist would be required with stump immobilizer) On/Off Footwear (QC): 3 (Min A donning/doffing R gripper sock.) Toileting Hygiene (QC): 2 (Max A at bed level with clothing management and posterior hygiene. Pt able to complete pericare.) Assessment/Plan Assessment and Plan Assess & Plan/Chief Complaint Assessment: CATHERINEKA 02/07/22 Severe PVD PAF OAC HTN HLP DM Hypothyroidism Hypoglycemia holding metformin and glimepiride Constipation Plan: Home meds SSI PT OT Pain control BM treatment 02/11/2022: Hold diabetic meds due to hypoglycemia Pain control Bowel regimen 02/12/2022: BM regimen Monitor glucose (1) Amputation of left lower extremity below knee XIOMARA DICKENS DO Feb 12, 2022 07:35
[2022-02-12 08:18] VITALS: BP 101/46
[2022-02-12] MEDS: CLOPIDOGREL 75 MG (PLAVIX) TABLET PO SCH (08:26)
[2022-02-12] MEDS: VITAMIN D3 25 MCG (1,000 UNITS) TABLET PO SCH (08:26)
[2022-02-12] MEDS: APIXABAN 5 MG (ELIQUIS) TABLET PO SCH ×2 (08:26→20:56)
[2022-02-12] MEDS: AMIODARONE 200 MG (CORDARONE) TAB PO SCH (08:26)
[2022-02-12] MEDS: KCL 20 MEQ TAB (K-DUR) PO SCH ×3 (08:26→17:12)
[2022-02-12] MEDS: SENNA W/DOCUSATE (SENOKOT S) TABLET PO SCH ×2 (08:26→21:02)
[2022-02-12] MEDS: DOCUSATE SODIUM 100 MG (COLACE) CAP PO SCH ×2 (08:26→20:55)
[2022-02-12] MEDS: PANTOPRAZOLE 40 MG (PROTONIX) TAB PO SCH (08:26)
[2022-02-12] MEDS: FUROSEMIDE 40 MG (LASIX) TAB PO SCH (08:27)
[2022-02-12] MEDS: polyethylene glycoL POWDER 17 GM (MIRALAX) PACK PO SCH ×2 (08:27→21:01)
[2022-02-12] MEDS ORDERED: morphine IMMEDIATE RELEASE 15 MG TABLET PO PRN (19:00)
[2022-02-12 20:00] VITALS: BP 144/65
[2022-02-12] MEDS: GABAPENTIN 100 MG (NEURONTIN) CAP PO SCH ×2 (20:56→21:02)
[2022-02-13] MEDS: inSUlin ASPART (NovoLOG) 1 UNIT/0.01 ML (CHARGE PER UNIT) SC SCH ×4 (05:55→20:19)
--- NOTE | 2022-02-13 06:15 | PM&R Progress Note ---
Subjective HPI/CC On Admission Date Seen by Provider: Feb 13, 2022 Time Seen by Provider: 10:30 Subjective/Events-last exam 02/13/2022: Patient doing a lot better Blood sugars 164, 113 Declines to take morphine for addiction potential really helps the patient 02/12/2022: Patient doing pretty well at bedside Blood sugar is 99 after being very low Suppository produced a small bowel movement so we will initiate more laxatives or Holding metoprolol due to low blood pressure Holding losartan as of yesterday due to low blood pressure Mag citrate is being used for constipation today 02/11/2022: Patient doing really well Blood sugars reviewed and holding metformin and oral hypoglycemic agent due to hypoglycemia Pain is controlled Laxatives given Checked meds and labs Review of Systems General: Fatigue, Malaise Musculoskeletal: leg pain Objective Exam Vital Signs Vital Signs Date Time Temp Pulse Resp B/P (MAP) Pulse Ox O2 Delivery O2 Flow Rate FiO2 02/13/22 20:34 97 Room Air 02/13/22 20:33 36.6 72 18 140/57 (84) Capillary Refill : General Appearance: No Apparent Distress, WD/WN, Chronically ill HEENT: PERRL/EOMI, Normal ENT Inspection, Pharynx Normal Neck: Full Range of Motion, Normal Inspection, Non Tender, Supple, Carotid Bru it Respiratory: Chest Non Tender, Lungs Clear, Normal Breath Sounds, No Accessory Muscle Use, No Respiratory Distress Cardiovascular: No Edema, No Gallop, No JVD, No Murmur, Normal Peripheral Pulses, Irregularly Irregular Gastrointestinal: Normal Bowel Sounds, No Organomegaly, No Pulsatile Mass, Non Tender, Soft Back: Normal Inspection, No CVA Tenderness, No Vertebral Tenderness Extremity: Normal Capillary Refill, Normal Inspection, Normal Range of Motion, Non Tender, No Calf Tenderness, No Pedal Edema Neurologic/Psychiatric: Alert, Oriented x3, Normal 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 FIM Transfers Therapy Code Descriptions/Definitions Functional [place] Measure: 0=Not Assessed/NA 4=Minimal Assistance 1=Total Assistance 5=Supervision or Setup 2=Maximal Assistance 6=Modified [place] 3=Moderate Assistance 7=Complete IndependenceSCALE: Activities may be completed with or without assistive devices. 0-Vwfaqbyexc-ufotwms completes the activity by him/herself with no assistance from a helper. 5-Set-up or Clean-up Assistance-helper sets up or cleans up; patient completes activity. [place] assists only prior to or following the activity. 4-Supervision or Touching Assistance-helper provides verbal cues and/or touching/steadying and/or contact guard assistance as patient completes activity. Assistance may be provided throughout the activity or intermittently. 3-Partial/Moderate Assistance-helper does LESS THAN HALF the effort. Mallory lifts, holds or supports trunk or limbs, but provides less than half the effort. 2-Substantial/Maximal Assistance-helper does MORE THAN HALF the effort. Mallory lifts or holds trunk or limbs and provides more than half the effort. 8-Oglhmibnp-wddywe does ALL the effort. Patient does none of the effort to complete the activity. Or, the assistance of 2 or more helpers is required for the patient to complete the activity. If activity was not attempted, code reason: 7-Patient Refused. 9-Not Applicable-not attempted and the patient did not perform the activity before the current illness, exacerbation or injury. 10-Not Attempted due to Environmental Limitations-(lack of equipment, weather restraints, etc.). 88-Not Attempted due to Medical Conditions or Safety Concerns. Roll Left to Right (QC): 6 Sit to Lying (QC): 6 Sit to Stand (QC): 3 Chair/Uxq-ri-Yhzii Xfer(QC): 3 Car Transfer (QC): 3 Gait Training Does the Patient Walk?: Yes Walk 10 feet (QC): 88 Walk 50 ft with 2 Turns(QC): 88 Walk 150 ft (QC): 88 Walking 10ft/uneven surface-QC: 88 Gait Assistive Device: Parallel Bars Wheelchair Training Does the Pt Use a Wheelchair?: Yes Distance: 150'x2 Wheel 50 ft with 2 turns (QC): 4 Wheel 150 ft (QC): 4 Type of Wheelchair: Manual Stair Training 1 Step (curb) (QC): 88 4 Steps (QC): 88 12 Steps (QC): 88 Balance Picking up an Object (QC): 88 ADL-Treatment Eating (QC): 6 (per pt report) Oral Hygiene (QC): 5 (per pt report) Shower/Bathe Self (QC): 3 (Min A with sponge bath at bed level, pt required assistance washing buttocks.) Upper Body Dressing (QC): 3 (Mod A overall. Max A doffing shirt at bed level, min A donning shirt overhead at EOB.) Lower Body Dressing (QC): 2 (Max A donning/doffing pants at bed level. Total assist would be required with stump immobilizer) On/Off Footwear (QC): 3 (Min A donning/doffing R gripper sock.) Toileting Hygiene (QC): 2 (Max A at bed level with clothing management and posterior hygiene. Pt able to complete pericare.) Assessment/Plan Assessment and Plan Assess & Plan/Chief Complaint Assessment: LBKA 02/07/22 Severe PVD PAF OAC HTN HLP DM Hypothyroidism Hypoglycemia holding metformin and glimepiride Constipation Plan: Home meds SSI PT OT Pain control BM treatment 02/11/2022: Hold diabetic meds due to hypoglycemia Pain control Bowel regimen 02/12/2022: BM regimen Monitor glucose 02/13/2022: Monitor sugar Hypoglycemia high risk (1) Amputation of left lower extremity below knee XIOMARA DICKENS DO Feb 13, 2022 06:15
[2022-02-13] MEDS: LEVOTHYROXINE 100 MCG (LEVOTHROID) TAB PO SCH (06:28)
[2022-02-13 07:30] VITALS: BP 143/64
[2022-02-13] MEDS: APIXABAN 5 MG (ELIQUIS) TABLET PO SCH ×2 (07:49→20:18)
[2022-02-13] MEDS: AMIODARONE 200 MG (CORDARONE) TAB PO SCH (07:49)
[2022-02-13] MEDS: VITAMIN D3 25 MCG (1,000 UNITS) TABLET PO SCH (07:49)
[2022-02-13] MEDS: KCL 20 MEQ TAB (K-DUR) PO SCH ×3 (07:49→17:21)
[2022-02-13] MEDS: CLOPIDOGREL 75 MG (PLAVIX) TABLET PO SCH (07:49)
[2022-02-13] MEDS: FUROSEMIDE 40 MG (LASIX) TAB PO SCH (07:50)
[2022-02-13] MEDS: PANTOPRAZOLE 40 MG (PROTONIX) TAB PO SCH (07:50)
[2022-02-13] MEDS: GABAPENTIN 100 MG (NEURONTIN) CAP PO SCH ×3 (07:50→20:18)
[2022-02-13] MEDS: SENNA W/DOCUSATE (SENOKOT S) TABLET PO SCH ×2 (08:05→20:18)
[2022-02-13] MEDS: DOCUSATE SODIUM 100 MG (COLACE) CAP PO SCH ×2 (08:05→20:18)
[2022-02-13] MEDS: polyethylene glycoL POWDER 17 GM (MIRALAX) PACK PO SCH ×2 (08:05→20:19)
--- NOTE | 2022-02-13 10:19 | Occupational Ther Daily Note ---
OT Current Status-Daily Note Subjective Pt alert, sitting EOB. Pt stated assisted with sponge bath and dressing today. Pt agrees to therapy. Discussed with about teaching pt to do more bathing by himself, in agreement. Mental Status/Objective Patient Orientation: Person, Place, Time, Situation ADL-Treatment stated that pt was able to don/doff sock in bed though pt stated that it was hard to do. Equipment given and pt educated on using for donning/doffing sock with increased independence. Pt will need wide sock aide with hip kit at discharge. Pt will need practice to become proficient with AE for footwear. Pt attempted to stand 2x's to urinate in toilet, pt very fearful and decided to just sit and use urinal then pt able to place and empty by self. Later in session, pt requested to use toilet for BM. Max A x1 for SPT and assist from 2nd person to manipulate hike clothing over hips. Pt able to cleanse self on toilet then hike pants while sitting on toilet prior to transfer. Pt washed hands at sink then completed oral care sitting at sink independently. Therapy Code Descriptions/Definitions Functional [place] Measure: 0=Not Assessed/NA 4=Minimal Assistance 1=Total Assistance 5=Supervision or Setup 2=Maximal Assistance 6=Modified [place] 3=Moderate Assistance 7=Complete IndependenceSCALE: Activities may be completed with or without assistive devices. 3-Zbcofbdfbx-njcxmol completes the activity by him/herself with no assistance from a helper. 5-Set-up or Clean-up Assistance-helper sets up or cleans up; patient completes activity. [place] assists only prior to or following the activity. 4-Supervision or Touching Assistance-helper provides verbal cues and/or touch ing/steadying and/or contact guard assistance as patient completes activity. Assistance may be provided throughout the activity or intermittently. 3-Partial/Moderate Assistance-helper does LESS THAN HALF the effort. [place] lifts, holds or supports trunk or limbs, but provides less than half the effort. 2-Substantial/Maximal Assistance-helper does MORE THAN HALF the effort. [place] lifts or holds trunk or limbs and provides more than half the effort. 1-Jsqlbmtej-mymgtm does ALL the effort. Patient does none of the effort to complete the activity. Or, the assistance of 2 or more helpers is required for the patient to complete the activity. If activity was not attempted, code reason: 7-Patient Refused. 9-Not Applicable-not attempted and the patient did not perform the activity before the current illness, exacerbation or injury. 10-Not Attempted due to Environmental Limitations-(lack of equipment, weather restraints, etc.). 88-Not Attempted due to Medical Conditions or Safety Concerns. Oral Hygiene (QC): 6 On/Off Footwear: 2 Toileting Hygiene (QC): 1 Toilet Transfer (QC): 2 Other Treatment Pt propelled w/c to therapy gym. Mod A for squat pivot transfer to therapy mat. Pt working on dynamic sitting balance by leaning side to side and front to back 20+ reps without only SBA no LOB noted. Pt then simulated lifting hip for toileting/dressing on mat table by placing 5 ferrer bags under each hip, with SBA for safety. Pt then requested to use toilet. After therapy, pt sitting in recliner with call light/phone in reach. All needs met in room. Education OT Patient Education: Instructions to caregiver, Modified ADL techniques, Transfer techniques, Use of adapted equipment, W/C management Teaching Recipient: Patient, Family Teaching Methods: Demonstration, Discussion Response to Teaching: Verbalize Understanding, Return Demonstration, Reinforcement Needed OT Short Term Goals Short Term Goals Time Frame: Feb 24, 2022 Shower/bathe self: 3 Lower body dressin OT Welding Operator Goals Skilled Nursing Goals Time Frame: Mar 10, 2022 Eating (QC): 6 Oral Hygiene (QC): 6 Toileting Hygiene (QC): 6 Shower/Bathe Self (QC): 4 Upper Body Dressing (QC): 4 Lower Body Dressing (QC): 3 On/Off Footwear (QC): 3 Additional Goals: 1-Demonstrate ADL Tasks, 2-Verbalize Understanding, 3- ImproveStrength/Lalit 1=Demonstrate adherence to instructed precautions during ADL tasks. 2=Patient will verbalize/demonstrate understanding of assistive devices/modifications for ADL. 3=Patient will improve strength/tolerance for activity to enable patient to perform ADL's. OT Education/Plan Problem List/Assessment Assessment: Decreased Activ Tolerance, Decreased UE Strength, Impaired Funct Balance, Impaired Self-Care Skills, Restricted Funct UE ROM Discharge Recommendations Plan/Recommendations: Continue POC Treatment Plan/Plan of Care Patient would benefit from OT for education, treatment and training to promote independence in ADL's, mobility, safety and/or upper extremity function for ADL's. Plan of Care: ADL Retraining, Functional Mobility, Group Exercise/Act as Ind, UE Funct Exercise/Act, UE Neuromus Re-Ed/Coord, W/C Management Training Treatment Duration: Mar 10, 2022 Frequency: At least 5 of 7 days/Wk (IRF) Estimated Hrs Per Day: 1.5 hours per day Agreement: Yes Rehab Potential: Fair Time/GCodes Start Time: 08:45 Stop Time: 10:00 Total Time Billed (hr/min): 75 Billed Treatment Time 1 visit-ADL 3 (45 min) FA 2 (30 min) KATERIN MONTENEGRO Feb 13, 2022 10:18
--- NOTE | 2022-02-13 10:56 | ST Cognitive Linguistic Eval ---
Speech Evaluation-General Medical Diagnosis s/p L BKA Onset Date: Feb 07, 2022 Therapy Diagnosis Therapy Diagnosis: Intact Cognitive Linguistic Skills Precautions Precautions: Fall Precautions/Isolations: Fall Prevention, Standard Precautions Referral Referring Physician: Dr. Cierra Chappell Reason for Referral: Evaluation/Treatment Medical History Pertinent Medical History: DM, PVD Current History The patient is a 71 year-old male with a past medical history of atrial fibrillation, CAD, high cholesterol, HTN GERD, diabetes, and hyothyroidism, who presented to ARU following a left BKA on 02/07/22 after a vascular procedure of the left leg. Reviewed History: Yes Social History Current Living Status: Spouse Speech PLF-Current Status Prior Level of Function The patient denied prior challenges with his speech, language, or cognition. Subjective The patient was seated upright in his recliner, awake and alert upon entrance to his room by the clinician. The patient greeted the clinician appropriately and was agreeable to participation in the cognitive linguistic assessment. Language Eval: Auditory Comprehends Simple Yes/No Ques: Functional Indent/Objects Multiple Kirby: Functional Ident/Pics in Multiple [place]: Functional Follows 1-Step Commands: Functional Follows Complex Directions: Functional Follows General Conversations: Functional Language Eval: Verbal Language Completes Spontaneous Greeting: Functional Produces Auto, Serial Info: Functional Imitates Simple Words/Phrases: Functional Word Finding: Functional Requests Basic Needs: Functional States Basic Personal Info: Functional Expresses Complex Ideas: Functional Language Evaluation: Reading Follows Simple Written Direct: Functional Language Evaluation: Writing Writes to Simple Dictation: Functional Cognitive Patient Orientation The patient was independently oriented to self, location, month, day of week, date, and year. Objective Cognitive Domain Attention: WNL Memory: WNL Problem Solving: Functional Executive Functions: WNL Visuospatial Skills: WNL Composite Severity Rating: WNL Clock Drawing Severity Rating: WNL Objective Formal/Standardized Tests [facility] Mental Status Evaluation ([facility]) Results The patient demonstrated a result of +27/30 correlating to a score of within normal limits. Oral Motor/Speech Production The patient does not display dysarthria or apraxia of speech. The patient is 100% intelligible in known and unknown contexts. Impression The patient displays cognitive linguistic skills within normal limits. The patient displayed one error throughout delayed recall of paragraph information, question 11. Speech Patient Assess Expression of Ideas/Wants: Expression (4) Understanding Verbal Content: Understands (4) Brief Interview-Mental Status: Yes Repetition of Three Words: Three (3) Temporal Orientation: Year: Correct (3) Temporal Orientation: Month: Accurate within 5 days(2) Temporal Orientation: Day: Correct (1) Recall : Wear to say "Sock": Yes, no cue required (2) Recall : Color: Yes, no cue required (2) Recall : Bed: Yes,after cueing (1) Memory/Recall Ability: Current season, Staff names and faces, That he or she is in a hsp/hsp unit Speech-Plan Treatment Plan Speech Therapy Treatment Plan: Discontinue ST Treatment Duration: Feb 10, 2022 Frequency: 1 time per week Estimated Hrs Per Day: .5 hour per day Rehab Potential: Fair Safety Risks/Education Teaching Recipient: Patient, Family Teaching Methods: Discussion Response to Teaching: Verbalize Understanding Education Topics Provided: Results of DEYANIRA POC Time Speech Therapy Time In: 11:15 Speech Therapy Time Out: 11:45 Total Billed Time: 30 Billed Treatment Time 1, JOSE WIGGINS [facility] ST Feb 13, 2022 10:56
--- NOTE | 2022-02-13 11:36 | Physical Therapy Daily Note ---
PT Daily Note-Current Subjective Patient in WC in room pre tx, agrees to PT, patient has pain of 3/10 in left residual limb. Appearance Patient in recliner post tx with nurse call, phone, tray, all needs met. Mental Status Patient Orientation: Person, Place, Situation Transfers SCALE: Activities may be completed with or without assistive devices. 3-Mzhpkagjgo-sduwoby completes the activity by him/herself with no assistance from a helper. 5-Set-up or Clean-up Assistance-helper sets up or cleans up; patient completes activity. [place] assists only prior to or following the activity. 4-Supervision or Touching Assistance-helper provides verbal cues and/or touching/steadying and/or contact guard assistance as patient completes activity. Assistance may be provided throughout the activity or intermittently. 3-Partial/Moderate Assistance-helper does LESS THAN HALF the effort. [place] l ifts, holds or supports trunk or limbs, but provides less than half the effort. 2-Substantial/Maximal Assistance-helper does MORE THAN HALF the effort. [place] lifts or holds trunk or limbs and provides more than half the effort. 6-Emxktlqkx-stxrix does ALL the effort. Patient does none of the effort to complete the activity. Or, the assistance of 2 or more helpers is required for t he patient to complete the activity. If activity was not attempted, code reason: 7-Patient Refused. 9-Not Applicable-not attempted and the patient did not perform the activity before the current illness, exacerbation or injury. 10-Not Attempted due to Environmental Limitations-(lack of equipment, weather restraints, etc.). 88-Not Attempted due to Medical Conditions or Safety Concerns. Roll Left & Right (QC): 6 Sit to Lying (QC): 4 Lying to Sitting/Side of Bed(Q: 3 Sit to Stand (QC): 3 Chair/Ryc-yo-Lhonj Xfer(QC): 3 Patient propels WC to therapy gym and into parallel bars, he says he is too weak to ambulate today but is still willing to try. He cannot take any steps so stands a long at he can (3 stands of about 45 sec each), he needs min to mod assist for sit to stand, then performs 3 sets of manually resisted leg press, transfers to therapy table (mod assist) for exercises, transfers back to , propels WC and then transfer to recliner. Wheelchair Training Does the Pt Use a Wheelchair?: Yes Wheel 50 ft with 2 turns (QC): 4 Type of Wheelchair: Manual 100'x2, very slow, needs rest breaks every 10 feet or so Exercises Supine Ex: Quad Set, Straight leg raise, Hip abd/add Supine Reps: 20 (LLE) prone hip stretch 5 min, seated RLE LAQ for 5 min Treatments bed mobility and transfers, standing, LE ROM and strengthening Assessment Current Status: Fair Progress patient seemed more fatigued today, had more difficulty with transfers, needs frequent rest breaks and pain makes exercises very difficult PT Short Term Goals Short Term Goals Time Frame: Feb 17, 2022 Roll Left & Right: 6 Sit to lyin (Batsheva) Lying to sitting on side of be: 3 (Batsheva) Sit to stand: 3 (Batsheva) Chair/vyg-kh-ucmkf transfer: 3 Walk 10 feet: 3 (Batsheva) PT Fpc Goals Engineering Technology Instructor Goals PT Fpc Goals Time Frame: Mar 03, 2022 Roll Left & Right (QC): 6 Sit to Lying (QC): 4 (CGA) Lying-Sitting on Side/Bed(QC): 4 (CGA) Sit to Stand (QC): 4 (CGA) Chair/Pep-cr-Jufxa Xfer(QC): 4 (CGA) Toilet Transfer (QC): 4 (CGA) Car Transfer (QC): 4 (CGA) Does the Patient Walk: Yes Walk 10 feet (QC): 4 (CGA) Walk 50ft with 2 Turns (QC): 88 Walk 150 ft (QC): 88 Walking 10ft on Uneven Surface: 4 (CGA) 1 Step (curb) (QC): 88 4 Steps (QC): 88 12 Steps (QC): 88 Picking up an Object (QC): 4 (CGA) Wheel 50 feet with 2 turns (QC: 6 Wheel 150 feet: 6 PT Plan Problem List Problem List: Activity Tolerance, Functional Strength, Safety, Balance, Gait, Transfer, Bed Mobility, ROM Treatment/Plan Treatment Plan: Continue Plan of Care Treatment Plan: Bed Mobility, Education, Functional Activity Lalit, Functional Strength, Group Therapy, Gait, Safety, Therapeutic Exercise, Transfers Treatment Duration: Mar 03, 2022 Frequency: At least 5 of 7 days/Wk (IRF) Estimated Hrs Per Day: 1.5 hours per day Patient and/or Family Agrees t: Yes Safety Risks/Education Patient Education: Transfer Techniques, Correct Positioning, W/C Management, Safety Issues Teaching Recipient: Patient Teaching Methods: Demonstration, Discussion Response to Teaching: Reinforcement Needed Time/GCodes Time In: 1000 Time Out: 1115 Total Billed Treatment Time: 75 Total Billed Treatment 1 visit EX 30' FA 45' JESSICA FOX PT Feb 13, 2022 11:36
--- NOTE | 2022-02-13 16:58 | Wound Care Assessment ---
Wound Care Assessment Date Seen by Provider: Feb 13, 2022 Time Seen by Provider: 16:00 Chief Complaint L. BKA incision R. heel ulcer HPI This pleasant 71 year old gentleman with h/o severe PAD was admitted to inpatient rehab following BKA. Per patient and , surgery on 02-07-22. He had a long h/o PAD with intervention/angioplasty per Dr. Sánchez in past. His wound healing will be complicated by PAD, DM2, obesity, CAD and anemia (post- operative). Gentry has an area of ecchymosis with some associated sloughing superior to his incision site. The incision is clean and dry and appears to be healing well. The stump is cool to touch. He states that he initially had significant swelling but this is now resolved. He was initially in a compressive brace that was very painful. I do wonder if the area of ecchymosis and sloughing is as result of this device. He is at risk of flap failure with underlying arterial disease. At this point I would recommend a moist dressing to reduce chances of further sloughing. I would also recommend against compressive dressings that might cause further injury to the area of concern. Nursing staff will need to clarify when siri are to be removed and follow up with surgery. Unstageable PU to right heel as well. He had arterial intervention on this side as well. Stable eschar noted on exam today. Smoking Status: Never a Smoker Alcohol Use: Denies Use Exam Vital Signs Date Time Temp Pulse Resp B/P (MAP) Pulse Ox O2 Delivery O2 Flow Rate FiO2 02/13/22 07:30 36.5 81 16 143/64 (90) 96 Room Air Capillary Refill : General Appearance: WD/WN, no apparent distress Neck: full range of motion Respiratory: no respiratory distress, no accessory muscle use Extremities: normal range of motion, pedal edema, other (Significant pain at stump site. No erythema or induration) Neurologic/Psychiatric: alert, normal mood/affect, oriented x 3 Skin: cool (stump site), ecchymosis (superior to incision site), pallor (at stump site), other (sloughing blister superior to stump site) Wound assessment: Incision: clean, dry, intact. No dehiscence. No erythema, no induration. Tender to touch. No drainage Nonwound: Ecchymosis with evidence of recent blistering and sloughing superior to incision. No drainage. Not currently open. R. heel: the epithelialization is none. There is no tunneling or undermining. There is no drainage. Granulation is none. Necrotic is large and eschar. Results Laboratory Tests 02/12/22 17:07: Glucometer 154H 02/12/22 20:47: Glucometer 164H 02/13/22 05:37: Glucometer 113H 02/13/22 11:36: Glucometer 165H 02/13/22 15:21: Glucometer 199H Assessment/Plan/Dx Assessment: 1. L. BKA incision 2. PAD s/p angioplasty 3. DM2 with hyperglycemia 4. Anemia (post-operative) 5. Lymphedema 6. Unstageable pressure ulcer R. heel with stable eschar Plan: 1. Cleanse daily with saline or wound cleanser. Apply xeroform to incision and blister. Cover with kerlix and stump sock. Change daily. 2. Monitor closely for signs of flap failure. Clarify date of staple removal and follow up from surgeon 3. Good glycemic control per primary team 4. Per primary team 5. Stump sock. I would avoid tightly compressive braces to stump at this time. Cool to touch and at risk for flap failure. 6. Ong liberally daily with betadine. Cover wtih BFD and use Primo to further off load in bed DIAMANTE MCNULTY MD Feb 13, 2022 16:58
[2022-02-13 20:33] VITALS: BP 140/57
[2022-02-14] MEDS: inSUlin ASPART (NovoLOG) 1 UNIT/0.01 ML (CHARGE PER UNIT) SC SCH ×4 (05:38→20:35)
--- NOTE | 2022-02-14 06:06 | PM&R Progress Note ---
Subjective HPI/CC On Admission Date Seen by Provider: Feb 14, 2022 Time Seen by Provider: 10:00 Subjective/Events-last exam 02/14/2022: Patient doing a lot better Complaining of pain but declines any pain medication Sugar is much improved after hypoglycemia Bowels are moving now at bedside 02/13/2022: Patient doing a lot better Blood sugars 164, 113 Declines to take morphine for addiction potential really helps the patient 02/12/2022: Patient doing pretty well at bedside Blood sugar is 99 after being very low Suppository produced a small bowel movement so we will initiate more laxatives or Holding metoprolol due to low blood pressure Holding losartan as of yesterday due to low blood pressure Mag citrate is being used for constipation today 02/11/2022: Patient doing really well Blood sugars reviewed and holding metformin and oral hypoglycemic agent due to hypoglycemia Pain is controlled Laxatives given Checked meds and labs Review of Systems General: Fatigue, Malaise Musculoskeletal: leg pain Objective Exam Vital Signs Vital Signs Date Time Temp Pulse Resp B/P (MAP) Pulse Ox O2 Delivery O2 Flow Rate FiO2 02/14/22 20:45 Room Air 02/14/22 19:42 36.6 67 18 134/56 (82) 96 Capillary Refill : General Appearance: No Apparent Distress, WD/WN, Chronically ill HEENT: PERRL/EOMI, Normal ENT Inspection, Pharynx Normal Neck: Full Range of Motion, Normal Inspection, Non Tender, Supple, Carotid Bruit Respiratory: Chest Non Tender, Lungs Clear, Normal Breath Sounds, No Accessory Muscle Use, No Respiratory Distress Cardiovascular: No Edema, No Gallop, No JVD, No Murmur, Normal Peripheral Pulses, Irregularly Irregular Gastrointestinal: Normal Bowel Sounds, No Organomegaly, No Pulsatile Mass, Non Tender, Soft Back: Normal Inspection, No CVA Tenderness, No Vertebral Tenderness Extremity: Normal Capillary Refill, Normal Inspection, Normal Range of Motion, Non Tender, No Calf Tenderness, No Pedal Edema Neurologic/Psychiatric: Alert, Oriented x3, Normal 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 FIM Transfers Therapy Code Descriptions/Definitions Functional [place] Measure: 0=Not Assessed/NA 4=Minimal Assistance 1=Total Assistance 5=Supervision or Setup 2=Maximal Assistance 6=Modified [place] 3=Moderate Assistance 7=Complete IndependenceSCALE: Activities may be completed with or without assistive devices. 4-Qhjwdcagqg-tuwqyos completes the activity by him/herself with no assistance from a helper. 5-Set-up or Clean-up Assistance-helper sets up or cleans up; patient completes activity. [place] assists only prior to or following the activity. 4-Supervision or Touching Assistance-helper provides verbal cues and/or touching/steadying and/or contact guard assistance as patient completes activity. Assistance may be provided throughout the activity or intermittently. 3-Partial/Moderate Assistance-helper does LESS THAN HALF the effort. [place] lifts, holds or supports trunk or limbs, but provides less than half the effort. 2-Substantial/Maximal Assistance-helper does MORE THAN HALF the effort. [place] lifts or holds trunk or limbs and provides more than half the effort. 9-Wpnozjmcm-ajrzeb does ALL the effort. Patient does none of the effort to complete the activity. Or, the assistance of 2 or more helpers is required for the patient to complete the activity. If activity was not attempted, code reason: 7-Patient Refused. 9-Not Applicable-not attempted and the patient did not perform the activity before the current illness, exacerbation or injury. 10-Not Attempted due to Environmental Limitations-(lack of equipment, weather restraints, etc.). 88-Not Attempted due to Medical Conditions or Safety Concerns. Roll Left to Right (QC): 6 Sit to Lying (QC): 4 Sit to Stand (QC): 3 Chair/Vjv-wh-Fcvvo Xfer(QC): 3 Car Transfer (QC): 3 Gait Training Does the Patient Walk?: Yes Walk 10 feet (QC): 88 Walk 50 ft with 2 Turns(QC): 88 Walk 150 ft (QC): 88 Walking 10ft/uneven surface-QC: 88 Gait Assistive Device: Parallel Bars Wheelchair Training Does the Pt Use a Wheelchair?: Yes Distance: 150'x2 Wheel 50 ft with 2 turns (QC): 4 Wheel 150 ft (QC): 4 Type of Wheelchair: Manual Stair Training 1 Step (curb) (QC): 88 4 Steps (QC): 88 12 Steps (QC): 88 Balance Picking up an Object (QC): 88 ADL-Treatment Eating (QC): 6 (per pt report) Oral Hygiene (QC): 6 Shower/Bathe Self (QC): 3 (Min A with sponge bath at bed level, pt required assistance washing buttocks.) Upper Body Dressing (QC): 3 (Mod A overall. Max A doffing shirt at bed level, min A donning shirt overhead at EOB.) Lower Body Dressing (QC): 2 (Max A donning/doffing pants at bed level. Total assist would be required with stump immobilizer) On/Off Footwear (QC): 2 Toileting Hygiene (QC): 1 Toilet Transfer (QC): 2 Assessment/Plan Assessment and Plan Assess & Plan/Chief Complaint Assessment: GEORGINA 02/07/22 Severe PVD PAF OAC HTN HLP DM Hypothyroidism Hypoglycemia holding metformin and glimepiride Constipation Plan: Home meds SSI PT OT Pain control BM treatment 02/11/2022: Hold diabetic meds due to hypoglycemia Pain control Bowel regimen 02/12/2022: BM regimen Monitor glucose 02/13/2022: Monitor sugar Hypoglycemia high risk 02/14/2022: Monitor closely Pain control Sugar monitoring (1) Amputation of left lower extremity below knee XIOMARA DICKENS DO Feb 14, 2022 06:06
[2022-02-14] MEDS: LEVOTHYROXINE 100 MCG (LEVOTHROID) TAB PO SCH (06:12)
[2022-02-14 07:29] VITALS: BP 132/59
[2022-02-14] MEDS: KCL 20 MEQ TAB (K-DUR) PO SCH ×3 (07:52→18:05)
[2022-02-14] MEDS: SENNA W/DOCUSATE (SENOKOT S) TABLET PO SCH ×2 (07:52→20:35)
[2022-02-14] MEDS: FUROSEMIDE 40 MG (LASIX) TAB PO SCH (07:52)
[2022-02-14] MEDS: APIXABAN 5 MG (ELIQUIS) TABLET PO SCH ×2 (07:52→20:35)
[2022-02-14] MEDS: GABAPENTIN 100 MG (NEURONTIN) CAP PO SCH ×3 (07:52→20:35)
[2022-02-14] MEDS: AMIODARONE 200 MG (CORDARONE) TAB PO SCH (07:52)
[2022-02-14] MEDS: DOCUSATE SODIUM 100 MG (COLACE) CAP PO SCH ×2 (07:52→20:35)
[2022-02-14] MEDS: PANTOPRAZOLE 40 MG (PROTONIX) TAB PO SCH (07:53)
[2022-02-14] MEDS: CLOPIDOGREL 75 MG (PLAVIX) TABLET PO SCH (07:53)
[2022-02-14] MEDS: VITAMIN D3 25 MCG (1,000 UNITS) TABLET PO SCH (07:53)
[2022-02-14] MEDS: polyethylene glycoL POWDER 17 GM (MIRALAX) PACK PO SCH ×2 (07:56→20:35)
[2022-02-14] MEDS: ACETAMINOPHEN 325 MG TABLET PO PRN (08:59)
--- NOTE | 2022-02-14 10:12 | Physical Therapy Daily Note ---
PT Daily Note-Current Subjective Patient in bed pre tx, agrees to PT, has unrated pain in left residual limb. Will be co-treating with OT due to poor patient mobility, strength, endurance, severe pain with activity, coordinate UE and LE with activity, reduce risk of falls. Appearance Patient in recliner post tx with nurse call, phone, tray, all needs met. Mental Status Patient Orientation: Person, Place, Situation Transfers SCALE: Activities may be completed with or without assistive devices. 6-Dvqtikirsz-hrhtagr completes the activity by him/herself with no assistance from a helper. 5-Set-up or Clean-up Assistance-helper sets up or cleans up; patient completes activity. [place] assists only prior to or following the activity. 4-Supervision or Touching Assistance-helper provides verbal cues and/or touching/steadying and/or contact guard assistance as patient completes activity. Assistance may be provided throughout the activity or intermittently. 3-Partial/Moderate Assistance-helper does LESS THAN HALF the effort. [place] lifts, holds or supports trunk or limbs, but provides less than half the effort. 2-Substantial/Maximal Assistance-helper does MORE THAN HALF the effort. [place] lifts or holds trunk or limbs and provides more than half the effort. 3-Jzhzmdkcg-zqrzir does ALL the effort. Patient does none of the effort to complete the activity. Or, the assistance of 2 or more helpers is required for the patient to complete the activity. If activity was not attempted, code reason: 7-Patient Refused. 9-Not Applicable-not attempted and the patient did not perform the activity before the current illness, exacerbation or injury. 10-Not Attempted due to Environmental Limitations-(lack of equipment, weather restraints, etc.). 88-Not Attempted due to Medical Conditions or Safety Concerns. Roll Left & Right (QC): 6 Lying to Sitting/Side of Bed(Q: 6 Sit to Stand (QC): 3 Chair/Hgp-ws-Fgcah Xfer(QC): 3 Patient transfers to shower chair, undresses, put in shower, showers, dresses again, transfers to . Wheelchair Training Does the Pt Use a Wheelchair?: Yes Wheel 50 ft with 2 turns (QC): 4 Type of Wheelchair: Manual 100' SBA, very slow, only goes a few feet before resting, patient states he is very tired today Exercises standing in parallel bars x3 for about 45sec to a minute each time, letting go with one hand, crossing chest Treatments PT performed bed mobility and transfers, standing, WC mobility, positioning and safety during bathing and dressing, OT performed bathing, dressing, UE activity, UE positioning and safety during activity Assessment Current Status: Fair Progress slightly improved transfers and sit to stand but still needs mod assist. PT Short Term Goals Short Term Goals Time Frame: Feb 17, 2022 Roll Left & Right: 6 Sit to lyin (Batsheva) Lying to sitting on side of be: 3 (Batsheva) Sit to stand: 3 (Batsheva) Chair/uzh-ml-ffsbq transfer: 3 Walk 10 feet: 3 (Batsheva) PT Senior Care Goals Change Management Manager Goals PT Senior Care Goals Time Frame: Mar 03, 2022 Roll Left & Right (QC): 6 Sit to Lying (QC): 4 (CGA) Lying-Sitting on Side/Bed(QC): 4 (CGA) Sit to Stand (QC): 4 (CGA) Chair/Qlt-sv-Locvo Xfer(QC): 4 (CGA) Toilet Transfer (QC): 4 (CGA) Car Transfer (QC): 4 (CGA) Does the Patient Walk: Yes Walk 10 feet (QC): 4 (CGA) Walk 50ft with 2 Turns (QC): 88 Walk 150 ft (QC): 88 Walking 10ft on Uneven Surface: 4 (CGA) 1 Step (curb) (QC): 88 4 Steps (QC): 88 12 Steps (QC): 88 Picking up an Object (QC): 4 (CGA) Wheel 50 feet with 2 turns (QC: 6 Wheel 150 feet: 6 PT Plan Problem List Problem List: Activity Tolerance, Functional Strength, Safety, Balance, Gait, Transfer, Bed Mobility, ROM Treatment/Plan Treatment Plan: Continue Plan of Care Treatment Plan: Bed Mobility, Education, Functional Activity Lalit, Functional Strength, Group Therapy, Gait, Safety, Therapeutic Exercise, Transfers Treatment Duration: Mar 03, 2022 Frequency: At least 5 of 7 days/Wk (IRF) Estimated Hrs Per Day: 1.5 hours per day Patient and/or Family Agrees t: Yes Safety Risks/Education Patient Education: Transfer Techniques, Correct Positioning, W/C Management, Safety Issues Teaching Recipient: Patient Teaching Methods: Demonstration, Discussion Response to Teaching: Reinforcement Needed Time/GCodes Time In: 914 Time Out: 1015 Total Billed Treatment Time: 60 Total Billed Treatment 1 visit EX 15' FA 45' JESSICA FOX PT Feb 14, 2022 10:12
--- NOTE | 2022-02-14 10:13 | Occupational Ther Daily Note ---
OT Current Status-Daily Note Subjective Pt seated EOB upon OT arrival, agreeable to tx. Pt reported being more tired today, and he required additional encouragement throughout some standing activities d/t fear of falling. Mental Status/Objective Patient Orientation: Person, Place, Situation ADL-Treatment Therapy Code Descriptions/Definitions Functional [place] Measure: 0=Not Assessed/NA 4=Minimal Assistance 1=Total Assistance 5=Supervision or Setup 2=Maximal Assistance 6=Modified [place] 3=Moderate Assistance 7=Complete IndependenceSCALE: Activities may be completed with or without assistive devices. 2-Ossfazqleb-eshytaf completes the activity by him/herself with no assistance from a helper. 5-Set-up or Clean-up Assistance-helper sets up or cleans up; patient completes activity. [place] assists only prior to or following the activity. 4-Supervision or Touching Assistance-helper provides verbal cues and/or touching/steadying and/or contact guard assistance as patient completes activity. Assistance may be provided throughout the activity or intermittently. 3-Partial/Moderate Assistance-helper does LESS THAN HALF the effort. [place] lifts, holds or supports trunk or limbs, but provides less than half the effort. 2-Substantial/Maximal Assistance-helper does MORE THAN HALF the effort. [place] lifts or holds trunk or limbs and provides more than half the effort. 1-Gtltzwgaz-cohytf does ALL the effort. Patient does none of the effort to complete the activity. Or, the assistance of 2 or more helpers is required for the patient to complete the activity. If activity was not attempted, code reason: 7-Patient Refused. 9-Not Applicable-not attempted and the patient did not perform the activity before the current illness, exacerbation or injury. 10-Not Attempted due to Environmental Limitations-(lack of equipment, weather restraints, etc.). 88-Not Attempted due to Medical Conditions or Safety Concerns. Shower/Bathe Self (QC): 5 (cover dressings and wounds) Upper Body Dressing (QC): 3 (Min A to don shirt in back) Lower Body Dressing (QC): 1 (Assist x2 in stand. Pt attempted to don pants seated but unable to fully get over hips.) On/Off Footwear: 4 (v/c's for sequencing with sock aid for R foot) Other Treatment OT/PT cotreat due to skill of 2 clinicians required which a occupational rehabilitation aide could not perform in order to coordinate UE/LEs, decrease fall risk, and due to pt's limitations in strength, activity tolerance, transfers and mobility. Pt used FWW to transfer seated EOB to shower w/c, Mod A. Pt pushed to bathroom to complete showering, dressing, and footwear, 100% in seated position. Pt transferred back to w/c, Mod A, and wheeled to therapy gym to participate in standing functional activities at the parallel bars. Pt stood with Mod A, and alternated between raising L and R hands off bars, ~10x each hand. He then progressed to two rounds of standing while touching hands to contralateral shoulder, ~10 each hand, seated RB between rounds. Pt required v/c's to stand upright during standing activities. Pt pushed back to room, and transferred from w/c to recliner with FWW, Mod A. Post tx, pt left in recliner with call light in reach and all needs met. Education OT Patient Education: Correct positioning, Energy conservation, Exercise program, Modified ADL techniques, Progress toward Goal/Update tx plan, Purpose of tx/functional activities, Rehab process, Transfer techniques, Use of adapted equipment, W/C management Teaching Recipient: Patient Teaching Methods: Demonstration, Discussion Response to Teaching: Verbalize Understanding, Return Demonstration OT Short Term Goals Short Term Goals Time Frame: Feb 24, 2022 Shower/bathe self: 3 Lower body dressin OT Correction Goals Flame Planer Goals Time Frame: Mar 10, 2022 Eating (QC): 6 Oral Hygiene (QC): 6 Toileting Hygiene (QC): 6 Shower/Bathe Self (QC): 4 Upper Body Dressing (QC): 4 Lower Body Dressing (QC): 3 On/Off Footwear (QC): 3 Additional Goals: 1-Demonstrate ADL Tasks, 2-Verbalize Understanding, 3-ImproveStrength/Lalit 1=Demonstrate adherence to instructed precautions during ADL tasks. 2=Patient will verbalize/demonstrate understanding of assistive devices/modifications for ADL. 3=Patient will improve strength/tolerance for activity to enable patient to perform ADL's. OT Education/Plan Problem List/Assessment Assessment: Decreased Activ Tolerance, Decreased UE Strength, Impaired Funct Balance, Impaired I ADL's, Impaired Self-Care Skills, Restricted Funct UE ROM Discharge Recommendations Plan/Recommendations: Continue POC Equpiment Recommendations-D/C: Extended Bath Bench, Hip Kit (wide sock aide) Treatment Plan/Plan of Care Patient would benefit from OT for education, treatment and training to promote independence in ADL's, mobility, safety and/or upper extremity function for ADL's. Plan of Care: ADL Retraining, Functional Mobility, Group Exercise/Act as Ind, UE Funct Exercise/Act, UE Neuromus Re-Ed/Coord, W/C Management Training Treatment Duration: Mar 10, 2022 Frequency: At least 5 of 7 days/Wk (IRF) Estimated Hrs Per Day: 1.5 hours per day Agreement: Yes Rehab Potential: Fair Time/GCodes Start Time: 09:15 Stop Time: 10:15 Total Time Billed (hr/min): 60 Billed Treatment Time [id number]: OT/PT cotreat 1, ADL 3 (40), FA 1 (20') OCTAVIA ORLANDO OT Feb 14, 2022 10:13
--- NOTE | 2022-02-14 14:05 | Occupational Ther Daily Note ---
OT Current Status-Daily Note Subjective Pt alert, sitting in recliner. Pt pleasant to work with. present in room. Pt agrees to therapy. Co-treat with PT [id number], skills of 2 clinicians required for instruction and modifications on B UE/LE exercises due to increase shldr, hip and wound pain. PT focusing on B LE strengthening and OT focusing on B UE strengthening. Mental Status/Objective Patient Orientation: Person, Place, Time, Situation ADL-Treatment Using shoe funnel, pt able to don shoe independently. Therapy Code Descriptions/Definitions Functional [place] Measure: 0=Not Assessed/NA 4=Minimal Assistance 1=Total Assistance 5=Supervision or Setup 2=Maximal Assistance 6=Modified [place] 3=Moderate Assistance 7=Complete IndependenceSCALE: Activities may be completed with or without assistive devices. 5-Bfopleacag-enkttpi completes the activity by him/herself with no assistance from a helper. 5-Set-up or Clean-up Assistance-helper sets up or cleans up; patient completes activity. [place] assists only prior to or following the activity. 4-Supervision or Touching Assistance-helper provides verbal cues and/or touching/steadying and/or contact guard assistance as patient completes activity. Assistance may be provided throughout the activity or intermittently. 3-Partial/Moderate Assistance-helper does LESS THAN HALF the effort. [place] lifts, holds or supports trunk or limbs, but provides less than half the effort. 2-Substantial/Maximal Assistance-helper does MORE THAN HALF the effort. [place] lifts or holds trunk or limbs and provides more than half the effort. 2-Aziqxulol-hixdqu does ALL the effort. Patient does none of the effort to complete the activity. Or, the assistance of 2 or more helpers is required for the patient to complete the activity. If activity was not attempted, code reason: 7-Patient Refused. 9-Not Applicable-not attempted and the patient did not perform the activity before the current illness, exacerbation or injury. 10-Not Attempted due to Environmental Limitations-(lack of equipment, weather restraints, etc.). 88-Not Attempted due to Medical Conditions or Safety Concerns. Other Treatment Pt given blue 5.8# resistance theraband and green medium heavy therapy sponge to work on strengthening B UE. Skilled instruction to complete each exercise with correct technique and modifications when necessary. Pt has limited AROM of B shldrs requiring modifications of positioning with shldr exercises. 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 Pt fatigues quickly with exercises and requires recovery breaks between each. See PT notes for B LE exercises. After session, pt sitting in recliner with call light/phone in reach. All needs met in room. OT Short Term Goals Short Term Goals Time Frame: Feb 24, 2022 Shower/bathe self: 3 Lower body dressin OT Senior Care Goals [employer] Goals Time Frame: Mar 10, 2022 Eating (QC): 6 Oral Hygiene (QC): 6 Toileting Hygiene (QC): 6 Shower/Bathe Self (QC): 4 Upper Body Dressing (QC): 4 Lower Body Dressing (QC): 3 On/Off Footwear (QC): 3 Additional Goals: 1-Demonstrate ADL Tasks, 2-Verbalize Understanding, 3- ImproveStrength/Lalit 1=Demonstrate adherence to instructed precautions during ADL tasks. 2=Patient will verbalize/demonstrate understanding of assistive devices/modifications for ADL. 3=Patient will improve strength/tolerance for activity to enable patient to perform ADL's. OT Education/Plan Problem List/Assessment Assessment: Decreased Activ Tolerance, Decreased UE Strength, Impaired Self- Care Skills Discharge Recommendations Plan/Recommendations: Continue POC Treatment Plan/Plan of Care Patient would benefit from OT for education, treatment and training to promote independence in ADL's, mobility, safety and/or upper extremity function for ADL's. Plan of Care: ADL Retraining, Functional Mobility, Group Exercise/Act as Ind, UE Funct Exercise/Act, UE Neuromus Re-Ed/Coord, W/C Management Training Treatment Duration: Mar 10, 2022 Frequency: At least 5 of 7 days/Wk (IRF) Estimated Hrs Per Day: 1.5 hours per day Agreement: Yes Rehab Potential: Fair Time/GCodes Start Time: 13:15 Stop Time: 13:45 Total Time Billed (hr/min): 30 Billed Treatment Time 1 visit-EX 2 (30 min) KATERIN MONTENEGRO Feb 14, 2022 14:05
--- NOTE | 2022-02-14 14:58 | Physical Therapy Daily Note ---
PT Daily Note-Current Subjective Pt alert, sitting in recliner. Pt pleasant to work with. present in room. Pt agrees to therapy. Co-treat with PT [id number], skills of 2 clinicians required for instruction and modifications on B UE/LE exercises due to increase shldr, hip and wound pain. PT focusing on B LE strengthening and OT focusing on B UE strengthening. Pain Location: No Pain Reported Mental Status Patient Orientation: Person, Place, Situation Transfers SCALE: Activities may be completed with or without assistive devices. 6-Arlwmrjuhm-avpvgip completes the activity by him/herself with no assistance from a helper. 5-Set-up or Clean-up Assistance-helper sets up or cleans up; patient completes activity. [place] assists only prior to or following the activity. 4-Supervision or Touching Assistance-helper provides verbal cues and/or touching/steadying and/or contact guard assistance as patient completes activity. Assistance may be provided throughout the activity or intermittently. 3-Partial/Moderate Assistance-helper does LESS THAN HALF the effort. [place] lifts, holds or supports trunk or limbs, but provides less than half the effort. 2-Substantial/Maximal Assistance-helper does MORE THAN HALF the effort. [place] lifts or holds trunk or limbs and provides more than half the effort. 9-Jkgsmylvf-brkmth does ALL the effort. Patient does none of the effort to complete the activity. Or, the assistance of 2 or more helpers is required for the patient to complete the activity. If activity was not attempted, code reason: 7-Patient Refused. 9-Not Applicable-not attempted and the patient did not perform the activity before the current illness, exacerbation or injury. 10-Not Attempted due to Environmental Limitations-(lack of equipment, weather restraints, etc.). 88-Not Attempted due to Medical Conditions or Safety Concerns. Exercises Seated Therapy Exercises: Ankle pumps, Long arc quads, Hip flexion, Hip abd/add, Glut set Seated Reps: 15 Treatments Pt given blue 5.8# resistance theraband and green medium heavy therapy sponge to work on strengthening B UE. Skilled instruction to complete each exercise with correct technique and modifications when necessary. Pt has limited AROM of B shldrs requiring modifications of positioning with shldr exercises. Pt completes Seated EX at recliner. Pt fatigues quickly with exercises and requires recovery breaks between each. After session, pt sitting in recliner with call light/phone in reach. All needs met in room. Assessment Current Status: Fair Progress Pt fatigues easily, needing frequent RB. PT Short Term Goals Short Term Goals Time Frame: Feb 17, 2022 Roll Left & Right: 6 Sit to lyin (Batsheva) Lying to sitting on side of be: 3 (Batsheva) Sit to stand: 3 (Batsheva) Chair/isw-xq-jxbjc transfer: 3 Walk 10 feet: 3 (Batsheva) PT Auto Transmission Technician Goals Auto Transmission Technician Goals PT Auto Transmission Technician Goals Time Frame: Mar 03, 2022 Roll Left & Right (QC): 6 Sit to Lying (QC): 4 (CGA) Lying-Sitting on Side/Bed(QC): 4 (CGA) Sit to Stand (QC): 4 (CGA) Chair/Rvc-le-Bztas Xfer(QC): 4 (CGA) Toilet Transfer (QC): 4 (CGA) Car Transfer (QC): 4 (CGA) Does the Patient Walk: Yes Walk 10 feet (QC): 4 (CGA) Walk 50ft with 2 Turns (QC): 88 Walk 150 ft (QC): 88 Walking 10ft on Uneven Surface: 4 (CGA) 1 Step (curb) (QC): 88 4 Steps (QC): 88 12 Steps (QC): 88 Picking up an Object (QC): 4 (CGA) Wheel 50 feet with 2 turns (QC: 6 Wheel 150 feet: 6 PT Plan Problem List Problem List: Activity Tolerance, Functional Strength Treatment/Plan Treatment Plan: Continue Plan of Care Treatment Plan: Bed Mobility, Education, Functional Activity Lalit, Functional Strength, Group Therapy, Gait, Safety, Therapeutic Exercise, Transfers Treatment Duration: Mar 03, 2022 Frequency: At least 5 of 7 days/Wk (IRF) Estimated Hrs Per Day: 1.5 hours per day Patient and/or Family Agrees t: Yes Safety Risks/Education Patient Education: Correct Positioning Teaching Recipient: Patient, Significant Other Teaching Methods: Discussion Response to Teaching: Verbalize Understanding Time/GCodes Time In: 1315 Time Out: 1345 Total Billed Treatment Time: 30 Total Billed Treatment Co-treat w/OT for 30m 1, EX x2 (30m) JALEESA MONIQUE REPEATER CHIEF Feb 14, 2022 14:58
--- NOTE | 2022-02-14 17:30 | Podiatry Progress Note ---
Standard Progress Note Progress Notes/Assess & Plan Date Seen by a Provider: Feb 14, 2022 Time Seen by a Provider: 17:28 Progress/Assessment & Plan Consultation dictated. Foot care given. Final Diagnosis Diabetic Neuropathy, PVD Onychomycosis Partial thickness wound, right foot RACHEAL PECK DPM Feb 14, 2022 17:29
[2022-02-14 19:42] VITALS: BP 134/56
--- NOTE | 2022-02-15 00:12 | CONSULTATION REPORT ---
DATE OF SERVICE: 02/14/2022 REASON FOR CONSULTATION: Foot care. HISTORY OF PRESENT ILLNESS: This 71-year-old male is admitted for rehabilitation after a dtnic-pzg-bmjr amputation of the left lower extremity. He relates a history of trauma, where a 6 x 6 piece of wood fell on his feet resulting in vascular compromised wound that did not heal on the left and resulted in a pqiwj-dnp-hgpl amputation. 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 He had been admitted to the hospital and had developed a blister to the posterior aspect of the right heel, which is under the care of Dr. Chappell at this point. He denies any fever, chills, nausea, vomiting. Indicates he is doing well with rehabilitation and has very positive attitude. PAST MEDICAL HISTORY: Includes atrial fibrillation, type 2 diabetes, which is insulin-dependent, chronic edema, swelling, coronary artery disease, high cholesterol, hypertension, peripheral vascular disease. Neuropathy. 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 ALLERGIES: Listed on the patient's chart. CURRENT MEDICATIONS: Listed on the patient's chart. PHYSICAL EXAMINATION: LOWER EXTREMITY: The patient has 0/4 dorsalis pedis pulse, 0/4 posterior tibial pulse on the right. Cap refill time is approximately 3 seconds to the second toe. There is no digital hair growth to the right forefoot. NEUROLOGIC: He has a diminished protective sensation with 10-gram monofilament wire examination of the right lower extremity. Deep tendon reflexes are diminished as well as vibratory sensation to the right forefoot. INTEGUMENTARY: The patient has a loose hyperkeratotic tissue to the distal aspect of the remaining first ray, right foot. This is some eschar as well as hyperkeratotic tissue with fissures. There is evidence of previous bleeding into this area. There is a thick yellow dystrophic toenail with subungual debris R2, 3, 4 and 5 digits. There is a dry eschar medial aspect of the right second toe. There is also a dressing to the right heel for wound care, which was not removed or evaluated at this time. The patient has multiple hyperkeratotic plaque-like lesions plantar aspect of the forefoot. There is a lack of skin lines, but there is no pinpoint bleeding with debridement. MUSCULOSKELETAL FINDINGS: The patient has no hallux to the right lower extremity. 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 ASSESSMENT: 1. Peripheral vascular disease. 2. Diabetic neuropathy. 3. Peripheral neuropathy. 4. Onychomycosis. 5. Partial thickness wound to the amputation site, right hallux. 6. Hyperkeratosis. PLAN: Various treatment options were discussed with the patient today. We discussed diabetic foot care in general and appropriate shoe fit and care. His toenails were debrided mechanically to the R2, 3, 4 and 5 digits . Betadine was applied. Due to the partial thickness wound to the right hallux amputation site, advised the patient to have wound care done on a daily basis. There are treating the bulla to the right heel. This should be extensive problem for the patient. I applied Betadine to this area today. We will see the patient back in the office as necessary. Job ID: [id number] DocumentID: [id number] Dictated Date: 02/14/2022 17:39:26 Senior Business Development Manager Date: 02/15/2022 00:12:39 Dictated By: ALEXANDER FRAZIER
[2022-02-15] MEDS: inSUlin ASPART (NovoLOG) 1 UNIT/0.01 ML (CHARGE PER UNIT) SC SCH ×4 (05:41→20:17)
[2022-02-15] MEDS: LEVOTHYROXINE 100 MCG (LEVOTHROID) TAB PO SCH (05:59)
--- NOTE | 2022-02-15 06:10 | PM&R Progress Note ---
Subjective HPI/CC On Admission Date Seen by Provider: Feb 15, 2022 Time Seen by Provider: 10:00 Subjective/Events-last exam 02/15/2022: Pt is doing really well Bowels moved two days ago Dr. Wade did treat his toenails Dr. Guido wants a general surgeon to debride it or the pt can go back over to Dr. Guido at [facility] to have that done with his leg 02/14/2022: Patient doing a lot better Complaining of pain but declines any pain medication Sugar is much improved after hypoglycemia Bowels are moving now at bedside 02/13/2022: Patient doing a lot better Blood sugars 164, 113 Declines to take morphine for addiction potential really helps the patient 02/12/2022: Patient doing pretty well at bedside Blood sugar is 99 after being very low Suppository produced a small bowel movement so we will initiate more laxatives or Holding metoprolol due to low blood pressure Holding losartan as of yesterday due to low blood pressure Mag citrate is being used for constipation today 02/11/2022: Patient doing really well Blood sugars reviewed and holding metformin and oral hypoglycemic agent due to hypoglycemia Pain is controlled Laxatives given Checked meds and labs Review of Systems General: Fatigue, Malaise Musculoskeletal: leg pain Objective Exam Vital Signs Vital Signs Date Time Temp Pulse Resp B/P (MAP) Pulse Ox O2 Delivery O2 Flow Rate FiO2 02/15/22 19:56 36.4 90 18 115/51 (72) 91 Room Air Capillary Refill : General Appearance: No Apparent Distress, WD/WN, Chronically ill HEENT: PERRL/EOMI, Normal ENT Inspection, Pharynx Normal Neck: Full Range of Motion, Normal Inspection, Non Tender, Supple, Carotid Bruit Respiratory: Chest Non Tender, Lungs Clear, Normal Breath Sounds, No Accessory Muscle Use, No Respiratory Distress Cardiovascular: No Edema, No Gallop, No JVD, No Murmur, Normal Peripheral Pulses, Irregularly Irregular Gastrointestinal: Normal Bowel Sounds, No Organomegaly, No Pulsatile Mass, Non Tender, Soft Back: Normal Inspection, No CVA Tenderness, No Vertebral Tenderness Extremity: Normal Capillary Refill, Normal Inspection, Normal Range of Motion, Non Tender, No Calf Tenderness, No Pedal Edema Neurologic/Psychiatric: Alert, Oriented x3, Normal Mood/Affect, security checker II-XII Norm as Tested, Abnormal Gait, Motor Weakness (left sided lower extremity BKA) Skin: Normal Color, Warm/Dry Lymphatic: No Adenopathy Results/Procedures Lab Patient resulted labs reviewed. FIM Transfers Therapy Code Descriptions/Definitions Functional [place] Measure: 0=Not Assessed/NA 4=Minimal Assistance 1=Total Assistance 5=Supervision or Setup 2=Maximal Assistance 6=Modified [place] 3=Moderate Assistance 7=Complete IndependenceSCALE: Activities may be completed with or without assistive devices. 7-Ptbnqwbecw-ytfnack completes the activity by him/herself with no assistance from a helper. 5-Set-up or Clean-up Assistance-helper sets up or cleans up; patient completes activity. [place] assists only prior to or following the activity. 4-Supervision or Touching Assistance-helper provides verbal cues and/or touching/steadying and/or contact guard assistance as patient completes activity. Assistance may be provided throughout the activity or intermittently. 3-Partial/Moderate Assistance-helper does LESS THAN HALF the effort. [place] lifts, holds or supports trunk or limbs, but provides less than half the effort. 2-Substantial/Maximal Assistance-helper does MORE THAN HALF the effort. [place] lifts or holds trunk or limbs and provides more than half the effort. 7-Olcgqymzr-isczcr does ALL the effort. Patient does none of the effort to complete the activity. Or, the assistance of 2 or more helpers is required for the patient to complete the activity. If activity was not attempted, code reason: 7-Patient Refused. 9-Not Applicable-not attempted and the patient did not perform the activity before the current illness, exacerbation or injury. 10-Not Attempted due to Environmental Limitations-(lack of equipment, weather restraints, etc.). 88-Not Attempted due to Medical Conditions or Safety Concerns. Roll Left to Right (QC): 6 Sit to Lying (QC): 4 Sit to Stand (QC): 3 Chair/Asm-jq-Dgdok Xfer(QC): 3 Car Transfer (QC): 3 Gait Training Does the Patient Walk?: Yes Walk 10 feet (QC): 88 Walk 50 ft with 2 Turns(QC): 88 Walk 150 ft (QC): 88 Walking 10ft/uneven surface-QC: 88 Gait Assistive Device: Parallel Bars Wheelchair Training Does the Pt Use a Wheelchair?: Yes Distance: 150'x2 Wheel 50 ft with 2 turns (QC): 4 Wheel 150 ft (QC): 4 Type of Wheelchair: Manual Stair Training 1 Step (curb) (QC): 88 4 Steps (QC): 88 12 Steps (QC): 88 Balance Picking up an Object (QC): 88 ADL-Treatment Eating (QC): 6 (per pt report) Oral Hygiene (QC): 6 Shower/Bathe Self (QC): 5 (cover dressings and wounds) Upper Body Dressing (QC): 3 (Min A to don shirt in back) Lower Body Dressing (QC): 1 (Assist x2 in stand. Pt attempted to don pants seated but unable to fully get over hips.) On/Off Footwear (QC): 4 (v/c's for sequencing with sock aid for R foot) Toileting Hygiene (QC): 1 Toilet Transfer (QC): 2 Assessment/Plan Assessment and Plan Assess & Plan/Chief Complaint Assessment: CATHERINEKA 02/07/22 Severe PVD PAF OAC HTN HLP DM Hypothyroidism Hypoglycemia holding metformin and glimepiride Constipation Plan: Home meds SSI PT OT Pain control BM treatment 02/11/2022: Hold diabetic meds due to hypoglycemia Pain control Bowel regimen 02/12/2022: BM regimen Monitor glucose 02/13/2022: Monitor sugar Hypoglycemia high risk 02/14/2022: Monitor closely Pain control Sugar monitoring 02/15/2022: Consult Dr Perez Restart Metformin (1) Amputation of left lower extremity below knee XIOMARA DICKENS DO Feb 15, 2022 06:10
[2022-02-15 07:29] VITALS: BP 146/75
[2022-02-15] MEDS: VITAMIN D3 25 MCG (1,000 UNITS) TABLET PO SCH (08:11)
[2022-02-15] MEDS: FUROSEMIDE 40 MG (LASIX) TAB PO SCH (08:11)
[2022-02-15] MEDS: CLOPIDOGREL 75 MG (PLAVIX) TABLET PO SCH (08:11)
[2022-02-15] MEDS: DOCUSATE SODIUM 100 MG (COLACE) CAP PO SCH ×2 (08:11→20:17)
[2022-02-15] MEDS: SENNA W/DOCUSATE (SENOKOT S) TABLET PO SCH ×2 (08:11→20:17)
[2022-02-15] MEDS: GABAPENTIN 100 MG (NEURONTIN) CAP PO SCH ×3 (08:11→20:17)
[2022-02-15] MEDS: KCL 20 MEQ TAB (K-DUR) PO SCH ×3 (08:11→17:46)
[2022-02-15] MEDS: AMIODARONE 200 MG (CORDARONE) TAB PO SCH (08:12)
[2022-02-15] MEDS: PANTOPRAZOLE 40 MG (PROTONIX) TAB PO SCH (08:12)
[2022-02-15] MEDS: polyethylene glycoL POWDER 17 GM (MIRALAX) PACK PO SCH ×2 (08:12→20:17)
[2022-02-15] MEDS: APIXABAN 5 MG (ELIQUIS) TABLET PO SCH ×2 (08:12→20:17)
--- NOTE | 2022-02-15 10:00 | Physical Therapy Daily Note ---
PT Daily Note-Current Subjective Pt. sitting EOB, head resting on pillow on bedside table, states " he sleeps like this a lot" Pt. and explain they have 4 steps with one rail to get in to the house. This MEAT PASSER recommends pt and pursue someone to build a ramp that is w/c ready. shares she would not be able to pull the pt. up the steps in a w/c . Pt. c/o pain in left residual limb at 4/10 . Pain Numeric Pain Scale: 4 Location: Left Location Body Site: Calf Pain Description: Throbbing Mental Status Patient Orientation: Normal For Age Transfers SCALE: Activities may be completed with or without assistive devices. 4-Ddmlipymob-suwpppm completes the activity by him/herself with no assistance from a helper. 5-Set-up or Clean-up Assistance-helper sets up or cleans up; patient completes activity. [place] assists only prior to or following the activity. 4-Supervision or Touching Assistance-helper provides verbal cues and/or touching/steadying and/or contact guard assistance as patient completes activity. Assistance may be provided throughout the activity or intermittently. 3-Partial/Moderate Assistance-helper does LESS THAN HALF the effort. [place] lifts, holds or supports trunk or limbs, but provides less than half the effort. 2-Substantial/Maximal Assistance-helper does MORE THAN HALF the effort. [place] lifts or holds trunk or limbs and provides more than half the effort. 7-Bvhzarjvd-twypek does ALL the effort. Patient does none of the effort to complete the activity. Or, the assistance of 2 or more helpers is required for the patient to complete the activity. If activity was not attempted, code reason: 7-Patient Refused. 9-Not Applicable-not attempted and the patient did not perform the activity before the current illness, exacerbation or injury. 10-Not Attempted due to Environmental Limitations-(lack of equipment, weather restraints, etc.). 88-Not Attempted due to Medical Conditions or Safety Concerns. Roll Left & Right (QC): 6 Sit to Lying (QC): 6 Lying to Sitting/Side of Bed(Q: 6 Sit to Stand (QC): 3 Chair/Dbs-er-Llgum Xfer(QC): 3 pt required mod assist of 1-2 for SPT w/c to bed and bed to w/c , pt. reaching for destination with RUE/ hand and requires assist in front and back for mod plus asst. pt. does not come to full standing with right knee extended . Pt. admits fear of standing and states it is very hard to overcome, pt. resists somewhat during the TRF and limits himself Wheelchair Training Does the Pt Use a Wheelchair?: Yes Wheel 50 ft with 2 turns (QC): 4 Type of Wheelchair: Manual pts own w/c was brought in from wifes car to practice with as this what pt. will use at home. cushion was placed in seat for height Exercises Supine Ex: Bridging, Ankle pumps (ight), Quad Set, Rolling, Glut sets, Heel Slides (right), Short Arc Quads, Straight leg raise, Hip abd/add Supine Reps: 15 Seated Therapy Exercises: Ankle pumps, Sit to stand, Long arc quads, Hip flexion Seated Reps: 10 Treatments PT OT co Rx secondary to poor safety, poor strength and mobility, coordination for UE and LE skills for TRFs and stance, as well as assessment of w/c for efficiency and viability of use. see Rx above. Assessment Current Status: Good Progress pt. fearful of falling, dependent of at home. mod asst for TRFs at this point PT Short Term Goals Short Term Goals Time Frame: Feb 17, 2022 Roll Left & Right: 6 Sit to lyin (Batsheva) Lying to sitting on side of be: 3 (Batsheva) Sit to stand: 3 (Batsheva) Chair/etq-wa-pfsbi transfer: 3 Walk 10 feet: 3 (Batsheva) PT Shelter Goals Shelter Goals PT Barrel Leveler Goals Time Frame: Mar 03, 2022 Roll Left & Right (QC): 6 Sit to Lying (QC): 4 (CGA) Lying-Sitting on Side/Bed(QC): 4 (CGA) Sit to Stand (QC): 4 (CGA) Chair/Qac-oq-Jpmjb Xfer(QC): 4 (CGA) Toilet Transfer (QC): 4 (CGA) Car Transfer (QC): 4 (CGA) Does the Patient Walk: Yes Walk 10 feet (QC): 4 (CGA) Walk 50ft with 2 Turns (QC): 88 Walk 150 ft (QC): 88 Walking 10ft on Uneven Surface: 4 (CGA) 1 Step (curb) (QC): 88 4 Steps (QC): 88 12 Steps (QC): 88 Picking up an Object (QC): 4 (CGA) Wheel 50 feet with 2 turns (QC: 6 Wheel 150 feet: 6 PT Plan Treatment/Plan Treatment Plan: Continue Plan of Care Treatment Plan: Bed Mobility, Education, Functional Activity Lalit, Functional Strength, Group Therapy, Gait, Safety, Therapeutic Exercise, Transfers Treatment Duration: Mar 03, 2022 Frequency: At least 5 of 7 days/Wk (IRF) Estimated Hrs Per Day: 1.5 hours per day Patient and/or Family Agrees t: Yes Safety Risks/Education Patient Education: Transfer Techniques, Correct Positioning, W/C Management, Safety Issues Teaching Recipient: Patient Teaching Methods: Demonstration, Discussion Response to Teaching: Verbalize Understanding, Return Demonstration, Reinforcement Needed Time/GCodes Time In: 900 Time Out: 1000 Total Billed Treatment Time: 60 Total Billed Treatment 1,EX20m,FA25m,w/c 15m (45 m co Rx) KIKE DUARTE MEAT PASSER Feb 15, 2022 10:00
--- NOTE | 2022-02-15 10:06 | Occupational Ther Daily Note ---
OT Current Status-Daily Note Subjective Pt seated at EOB with PT upon OT arrival. Pt says he feels "tired" today, but is agreeable to OT/PT cotreat. Mental Status/Objective Patient Orientation: Person, Place, Situation ADL-Treatment Therapy Code Descriptions/Definitions Functional [place] Measure: 0=Not Assessed/NA 4=Minimal Assistance 1=Total Assistance 5=Supervision or Setup 2=Maximal Assistance 6=Modified [place] 3=Moderate Assistance 7=Complete IndependenceSCALE: Activities may be completed with or without assistive devices. 5-Hggkvvilct-xjrdexx completes the activity by him/herself with no assistance from a helper. 5-Set-up or Clean-up Assistance-helper sets up or cleans up; patient completes activity. [place] assists only prior to or following the activity. 4-Supervision or Touching Assistance-helper provides verbal cues and/or touching/steadying and/or contact guard assistance as patient completes activity. Assistance may be provided throughout the activity or intermittently. 3-Partial/Moderate Assistance-helper does LESS THAN HALF the effort. [place] lifts, holds or supports trunk or limbs, but provides less than half the effort. 2-Substantial/Maximal Assistance-helper does MORE THAN HALF the effort. [place] lifts or holds trunk or limbs and provides more than half the effort. 2-Swcjfqosv-xfuugo does ALL the effort. Patient does none of the effort to complete the activity. Or, the assistance of 2 or more helpers is required for the patient to complete the activity. If activity was not attempted, code reason: 7-Patient Refused. 9-Not Applicable-not attempted and the patient did not perform the activity before the current illness, exacerbation or injury. 10-Not Attempted due to Environmental Limitations-(lack of equipment, weather restraints, etc.). 88-Not Attempted due to Medical Conditions or Safety Concerns. Toileting Hygiene (QC): 5 (with urinal at EOB) Other Treatment OT/PT cotreat due to skill of 2 clinicians required which a rehabilitation services director could not perform in order to coordinate UE/LEs, decrease fall risk, and due to pt's limitations in strength, activity tolerance, transfers and mobility. OT focused on UE placement and cues for sequencing and safety, PT focused on LE placement, gross overall movement, transfers/mobility. Pt and educated on need for ramp to enter home, both are in agreement and searched for possible contractors during tx. Pt transferred from seated EOB to w/c using modified squat pivot, Mod A. He wheeled into therapy gym to participate in BUE and BLE exercises and functional activities. He required mod assist x2 to transfer from w/c to therapy mat. Pt completed BLE exercises with PT (see PT note for exercises) and BUE AAROM shoulder flexion exercises with dowel haylie in supine, x5. He was able to flex his shoulders ~30 degrees before needing assistance to raise dowel haylie to ~110 degrees of shoulder flexion. Pt's brought in his personal w/c, so PT and OT assessed/adjusted w/c to meet pt's current medical needs. He required mod assist x2 to transfer off mat to w/c and back again to mat. End of cotreat. Pt participated in functional activities while seated on the edge of the mat to focus on increasing BUE/core strength and endurance and seated balance. He shuffled R and then L to edge of the mat 1x. He then simulated LBD with looped yellow Theraband first then simulated LBD with ferrer bags (4bags per LE, 2 under thigh and 2 under buttocks) 1x. Pt transferred back to w/c, mod assist x2, and wheeled back to room, pt requested to remain in w/c. Post tx, pt left in w/c with call light in reach and all needs met. Education OT Patient Education: Correct positioning, Energy conservation, Exercise program, Instructions to caregiver, Modified ADL techniques, Progress toward Goal/Update tx plan, Purpose of tx/functional activities, Rehab process, Safety issues, Transfer techniques, W/C management Teaching Recipient: Patient, Significant Other Teaching Methods: Demonstration, Discussion Response to Teaching: Verbalize Understanding, Return Demonstration, Reinforcement Needed OT Short Term Goals Short Term Goals Time Frame: Feb 24, 2022 Shower/bathe self: 3 Lower body dressin OT Shelter Goals Shelter Goals Time Frame: Mar 10, 2022 Eating (QC): 6 Oral Hygiene (QC): 6 Toileting Hygiene (QC): 6 Shower/Bathe Self (QC): 4 Upper Body Dressing (QC): 4 Lower Body Dressing (QC): 3 On/Off Footwear (QC): 3 Additional Goals: 1-Demonstrate ADL Tasks, 2-Verbalize Understanding, 3- ImproveStrength/Lalit 1=Demonstrate adherence to instructed precautions during ADL tasks. 2=Patient will verbalize/demonstrate understanding of assistive devices/modifications for ADL. 3=Patient will improve strength/tolerance for activity to enable patient to perform ADL's. OT Education/Plan Problem List/Assessment Assessment: Decreased Activ Tolerance, Decreased UE Strength, Impaired Funct Balance, Impaired I ADL's, Impaired Self-Care Skills, Restricted Funct UE ROM Discharge Recommendations Plan/Recommendations: Continue POC Treatment Plan/Plan of Care Patient would benefit from OT for education, treatment and training to promote independence in ADL's, mobility, safety and/or upper extremity function for ADL's. Plan of Care: ADL Retraining, Functional Mobility, Group Exercise/Act as Ind, UE Funct Exercise/Act, UE Neuromus Re-Ed/Coord, W/C Management Training Treatment Duration: Mar 10, 2022 Frequency: At least 5 of 7 days/Wk (IRF) Estimated Hrs Per Day: 1.5 hours per day Agreement: Yes Rehab Potential: Fair Time/GCodes Start Time: 09:15 Stop Time: 10:15 Total Time Billed (hr/min): 60 Billed Treatment Time 3164-4425: PT/OT cotreat [id number]: OT tx 1, Ex 2 (30), FA 2 (30) OCTAVIA ORLANDO OT Feb 15, 2022 10:06
--- NOTE | 2022-02-15 11:33 | Physical Therapy Daily Note ---
PT Daily Note-Current Subjective Pt. and happy to announce that Susie Covarrubias will be installing a ramp at pts home. Pt. agrees to Rx and shares that he likes the recliner but does not know how to recline the head. This was taught. also willing to participate in TRFs and was taught to apply gait belt Pain Numeric Pain Scale: 5-Moderate Pain Location: Left Location Body Site: Hip Pain Description: Ache Mental Status Patient Orientation: Normal For Age Transfers SCALE: Activities may be completed with or without assistive devices. 9-Recdkiocyt-oinhwnx completes the activity by him/herself with no assistance from a helper. 5-Set-up or Clean-up Assistance-helper sets up or cleans up; patient completes activity. [place] assists only prior to or following the activity. 4-Supervision or Touching Assistance-helper provides verbal cues and/or touching/steadying and/or contact guard assistance as patient completes act ivity. Assistance may be provided throughout the activity or intermittently. 3-Partial/Moderate Assistance-helper does LESS THAN HALF the effort. [place] lifts, holds or supports trunk or limbs, but provides less than half the effort. 2-Substantial/Maximal Assistance-helper does MORE THAN HALF the effort. [place] lifts or holds trunk or limbs and provides more than half the effort. 1-Hbifqsbio-jjamwc does ALL the effort. Patient does none of the effort to complete the activity. Or, the assistance of 2 or more helpers is required for the patient to complete the activity. If activity was not attempted, code reason: 7-Patient Refused. 9-Not Applicable-not attempted and the patient did not perform the activity before the current illness, exacerbation or injury. 10-Not Attempted due to Environmental Limitations-(lack of equipment, weather restraints, etc.). 88-Not Attempted due to Medical Conditions or Safety Concerns. SPT w/c to recliner with mod assist, present and was instructed in use of gait belt as well as safe stance to assist pt with TRFs Exercises Supine Ex: Bridging, Quad Set, Glut sets, Knee to chest, Straight leg raise, Hip abd/add Supine Reps: 15 Treatments TRFs, caregiver instruction, therex in recliner and use of recliner Assessment Current Status: Good Progress slight improvement in SPT noted PT Short Term Goals Short Term Goals Time Frame: Feb 17, 2022 Roll Left & Right: 6 Sit to lyin (Batsheva) Lying to sitting on side of be: 3 (Batsheva) Sit to stand: 3 (Batsheva) Chair/vwm-rp-vondb transfer: 3 Walk 10 feet: 3 (Batsheva) PT Bait Digger Goals Bait Digger Goals PT Prison Goals Time Frame: Mar 03, 2022 Roll Left & Right (QC): 6 Sit to Lying (QC): 4 (CGA) Lying-Sitting on Side/Bed(QC): 4 (CGA) Sit to Stand (QC): 4 (CGA) Chair/Oji-bg-Xvqbh Xfer(QC): 4 (CGA) Toilet Transfer (QC): 4 (CGA) Car Transfer (QC): 4 (CGA) Does the Patient Walk: Yes Walk 10 feet (QC): 4 (CGA) Walk 50ft with 2 Turns (QC): 88 Walk 150 ft (QC): 88 Walking 10ft on Uneven Surface: 4 (CGA) 1 Step (curb) (QC): 88 4 Steps (QC): 88 12 Steps (QC): 88 Picking up an Object (QC): 4 (CGA) Wheel 50 feet with 2 turns (QC: 6 Wheel 150 feet: 6 PT Plan Treatment/Plan Treatment Plan: Continue Plan of Care Treatment Plan: Bed Mobility, Education, Functional Activity Lalit, Functional Strength, Group Therapy, Gait, Safety, Therapeutic Exercise, Transfers Treatment Duration: Mar 03, 2022 Frequency: At least 5 of 7 days/Wk (IRF) Estimated Hrs Per Day: 1.5 hours per day Patient and/or Family Agrees t: Yes Safety Risks/Education Patient Education: Transfer Techniques, Issued Written HEP, Correct Positioning, Safety Issues Teaching Recipient: Family, Significant Other Teaching Methods: Demonstration, Discussion Response to Teaching: Verbalize Understanding, Return Demonstration, Reinforcement Needed Time/GCodes Time In: 1100 Time Out: 1130 Total Billed Treatment Time: 30 Total Billed Treatment 1,FA20m,EX10m KIKE DUARTE W[employer] HOUSE WORKER Feb 15, 2022 11:33
--- NOTE | 2022-02-15 13:33 | Occupational Ther Daily Note ---
OT Current Status-Daily Note Subjective Pt resting in recliner upon OT arrival, agreeable to tx. Mental Status/Objective Patient Orientation: Person, Place, Situation ADL-Treatment Therapy Code Descriptions/Definitions Functional [place] Measure: 0=Not Assessed/NA 4=Minimal Assistance 1=Total Assistance 5=Supervision or Setup 2=Maximal Assistance 6=Modified [place] 3=Moderate Assistance 7=Complete IndependenceSCALE: Activities may be completed with or without assistive devices. 6-Dmehcnbbim-mppmvgd completes the activity by him/herself with no assistance from a helper. 5-Set-up or Clean-up Assistance-helper sets up or cleans up; patient completes activity. [place] assists only prior to or following the activity. 4-Supervision or Touching Assistance-helper provides verbal cues and/or touching/steadying and/or contact guard assistance as patient completes activity. Assistance may be provided throughout the activity or intermittently. 3-Partial/Moderate Assistance-helper does LESS THAN HALF the effort. [place] lifts, holds or supports trunk or limbs, but provides less than half the effort. 2-Substantial/Maximal Assistance-helper does MORE THAN HALF the effort. [place] lifts or holds trunk or limbs and provides more than half the effort. 4-Dirwuhvzf-kalcgx does ALL the effort. Patient does none of the effort to complete the activity. Or, the assistance of 2 or more helpers is required for the patient to complete the activity. If activity was not attempted, code reason: 7-Patient Refused. 9-Not Applicable-not attempted and the patient did not perform the activity be fore the current illness, exacerbation or injury. 10-Not Attempted due to Environmental Limitations-(lack of equipment, weather restraints, etc.). 88-Not Attempted due to Medical Conditions or Safety Concerns. Other Treatment Pt remained reclined in recliner to complete BUE AAROM exercises with a dowel haylie. Pt educated on the importance of increasing bilateral shoulder ROM to increase IND in ADLs and IADLs, pt and agreeable. Pt completed 2x10 of shoulder flexion (OT assist above ~30-120 degrees), chest presses, horizontal abduction and adduction, shoulder internal/external rotation, and elbow flexion. Pt required v/c's to breathe during exercises and take RBs PRN as he verbalized tightness and discomfort as ROM increased. OT also modified his shoes with adhesive velcro in order for pt's shoes to fit better, pt and verbalized agreement to modification. Post tx, pt left in recliner with call light in reach and all needs met. Education OT Patient Education: Correct positioning, Energy conservation, Exercise program, Instructions to caregiver, Modified ADL techniques, Progress toward Goal/Update tx plan, Purpose of tx/functional activities, Rehab process Teaching Recipient: Patient, Family Teaching Methods: Demonstration, Discussion Response to Teaching: Verbalize Understanding, Return Demonstration, Reinforcement Needed OT Short Term Goals Short Term Goals Time Frame: Feb 24, 2022 Shower/bathe self: 3 Lower body dressin OT Detention Goals Detention Goals Time Frame: Mar 10, 2022 Eating (QC): 6 Oral Hygiene (QC): 6 Toileting Hygiene (QC): 6 Shower/Bathe Self (QC): 4 Upper Body Dressing (QC): 4 Lower Body Dressing (QC): 3 On/Off Footwear (QC): 3 Additional Goals: 1-Demonstrate ADL Tasks, 2-Verbalize Understanding, 3- ImproveStrength/Lalit 1=Demonstrate adherence to instructed precautions during ADL tasks. 2=Patient will verbalize/demonstrate understanding of assistive devices/modifications for ADL. 3=Patient will improve strength/tolerance for activity to enable patient to perform ADL's. OT Education/Plan Problem List/Assessment Assessment: Decreased Activ Tolerance, Decreased UE Strength, Impaired Funct Balance, Impaired I ADL's, Impaired Self-Care Skills, Restricted Funct UE ROM Discharge Recommendations Plan/Recommendations: Continue POC Treatment Plan/Plan of Care Patient would benefit from OT for education, treatment and training to promote independence in ADL's, mobility, safety and/or upper extremity function for ADL's. Plan of Care: ADL Retraining, Functional Mobility, Group Exercise/Act as Ind, UE Funct Exercise/Act, UE Neuromus Re-Ed/Coord, W/C Management Training Treatment Duration: Mar 10, 2022 Frequency: At least 5 of 7 days/Wk (IRF) Estimated Hrs Per Day: 1.5 hours per day Agreement: Yes Rehab Potential: Fair Time/GCodes Start Time: 13:00 Stop Time: 13:30 Total Time Billed (hr/min): 30 Billed Treatment Time 1, Ex 2 (30') OCTAVIA ORLANDO OT Feb 15, 2022 13:33
[2022-02-15] MEDS: metFORMIN 500 MG (GLUCOPHAGE) TAB PO SCH (15:58)
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
[2022-02-15 19:56] VITALS: BP 115/51
[2022-02-16] MEDS: inSUlin ASPART (NovoLOG) 1 UNIT/0.01 ML (CHARGE PER UNIT) SC SCH ×4 (05:38→21:00)
[2022-02-16] MEDS: LEVOTHYROXINE 100 MCG (LEVOTHROID) TAB PO SCH (06:04)
[2022-02-16] MEDS: metFORMIN 500 MG (GLUCOPHAGE) TAB PO SCH ×2 (06:04→16:16)
--- NOTE | 2022-02-16 06:06 | PM&R Progress Note ---
Subjective HPI/CC On Admission Date Seen by Provider: Feb 16, 2022 Time Seen by Provider: 12:30 Subjective/Events-last exam 02/16/2022: Pt is doing well Dr. Perez thought the leg looked better today and didn't require surgery Will take Melatonin tonight to help him sleep Bowels moved yesterday Sugars are elevated so will start Amaryl 1 mg to the Metformin 500 BID started yesterday 02/15/2022: Pt is doing really well Bowels moved two days ago Dr. Wade did treat his toenails Dr. Guido wants a general surgeon to debride it or the pt can go back over to Dr. Guido at [facility] to have that done with his leg 02/14/2022: Patient doing a lot better Complaining of pain but declines any pain medication Sugar is much improved after hypoglycemia Bowels are moving now at bedside 02/13/2022: Patient doing a lot better Blood sugars 164, 113 Declines to take morphine for addiction potential really helps the patient 02/12/2022: Patient doing pretty well at bedside Blood sugar is 99 after being very low Suppository produced a small bowel movement so we will initiate more laxatives or Holding metoprolol due to low blood pressure Holding losartan as of yesterday due to low blood pressure Mag citrate is being used for constipation today 02/11/2022: Patient doing really well Blood sugars reviewed and holding metformin and oral hypoglycemic agent due to hypoglycemia Pain is controlled Laxatives given Checked meds and labs Review of Systems General: Fatigue, Malaise Musculoskeletal: leg pain Objective Exam Vital Signs Vital Signs Date Time Temp Pulse Resp B/P (MAP) Pulse Ox O2 Delivery O2 Flow Rate FiO2 02/16/22 09:00 Room Air 02/16/22 07:56 35.8 73 14 154/60 (91) 96 Capillary Refill : General Appearance: No Apparent Distress, WD/WN, Chronically ill HEENT: PERRL/EOMI, Normal ENT Inspection, Pharynx Normal Neck: Full Range of Motion, Normal Inspection, Non Tender, Supple, Carotid Bruit Respiratory: Chest Non Tender, Lungs Clear, Normal Breath Sounds, No Accessory Muscle Use, No Respiratory Distress Cardiovascular: No Edema, No Gallop, No JVD, No Murmur, Normal Peripheral Pulses, Irregularly Irregular Gastrointestinal: Normal Bowel Sounds, No Organomegaly, No Pulsatile Mass, Non Tender, Soft Back: Normal Inspection, No CVA Tenderness, No Vertebral Tenderness Extremity: Normal Capillary Refill, Normal Inspection, Normal Range of Motion, Non Tender, No Calf Tenderness, No Pedal Edema Neurologic/Psychiatric: Alert, Oriented x3, Normal Mood/Affect, external auditor II-XII Norm as Tested, Abnormal Gait, Motor Weakness (left sided lower extremity BKA) Skin: Normal Color, Warm/Dry Lymphatic: No Adenopathy Results/Procedures Lab Patient resulted labs reviewed. FIM Transfers Therapy Code Descriptions/Definitions Functional [place] Measure: 0=Not Assessed/NA 4=Minimal Assistance 1=Total Assistance 5=Supervision or Setup 2=Maximal Assistance 6=Modified [place] 3=Moderate Assistance 7=Complete IndependenceSCALE: Activities may be completed with or without assistive devices. 4-Jymxqwamlk-ishxlrm completes the activity by him/herself with no assistance f rom a helper. 5-Set-up or Clean-up Assistance-helper sets up or cleans up; patient completes activity. [place] assists only prior to or following the activity. 4-Supervision or Touching Assistance-helper provides verbal cues and/or touching/steadying and/or contact guard assistance as patient completes activity. Assistance may be provided throughout the activity or intermittently. 3-Partial/Moderate Assistance-helper does LESS THAN HALF the effort. [place] lifts, holds or supports trunk or limbs, but provides less than half the effort. 2-Substantial/Maximal Assistance-helper does MORE THAN HALF the effort. [place] lifts or holds trunk or limbs and provides more than half the effort. 8-Zroujmkxs-olafme does ALL the effort. Patient does none of the effort to complete the activity. Or, the assistance of 2 or more helpers is required for the patient to complete the activity. If activity was not attempted, code reason: 7-Patient Refused. 9-Not Applicable-not attempted and the patient did not perform the activity before the current illness, exacerbation or injury. 10-Not Attempted due to Environmental Limitations-(lack of equipment, weather restraints, etc.). 88-Not Attempted due to Medical Conditions or Safety Concerns. Roll Left to Right (QC): 6 Sit to Lying (QC): 6 Sit to Stand (QC): 3 Chair/Pbk-an-Ljdeo Xfer(QC): 3 Car Transfer (QC): 3 Gait Training Does the Patient Walk?: No and Walking Goal IS indicated Walk 10 feet (QC): 88 Walk 50 ft with 2 Turns(QC): 88 Walk 150 ft (QC): 88 Walking 10ft/uneven surface-QC: 88 Gait Assistive Device: Parallel Bars Wheelchair Training Does the Pt Use a Wheelchair?: Yes Distance: 150'x2 Wheel 50 ft with 2 turns (QC): 4 Wheel 150 ft (QC): 4 Type of Wheelchair: Manual Stair Training 1 Step (curb) (QC): 88 4 Steps (QC): 88 12 Steps (QC): 88 Balance Picking up an Object (QC): 88 ADL-Treatment Eating (QC): 6 (per pt report) Oral Hygiene (QC): 6 Shower/Bathe Self (QC): 5 (cover dressings and wounds) Upper Body Dressing (QC): 3 (Min A to don shirt in back) Lower Body Dressing (QC): 1 (Assist x2 in stand. Pt attempted to don pants seated but unable to fully get over hips.) On/Off Footwear (QC): 4 (v/c's for sequencing with sock aid for R foot) Toileting Hygiene (QC): 5 (with urinal at EOB) Toilet Transfer (QC): 2 Assessment/Plan Assessment and Plan Assess & Plan/Chief Complaint Assessment: GEORGINA 02/07/22 Severe PVD PAF OAC HTN HLP DM Hypothyroidism Hypoglycemia holding metformin and glimepiride Constipation Plan: Home meds SSI PT OT Pain control BM treatment 02/11/2022: Hold diabetic meds due to hypoglycemia Pain control Bowel regimen 02/12/2022: BM regimen Monitor glucose 02/13/2022: Monitor sugar Hypoglycemia high risk 02/14/2022: Monitor closely Pain control Sugar monitoring 02/15/2022: Consult Dr Perez Restart Metformin 02/16/2022: Appreciate Dr Perez Add Amaryl (1) Amputation of left lower extremity below knee XIOMARA DICKENS DO Feb 16, 2022 06:06
[2022-02-16] MEDS: APIXABAN 5 MG (ELIQUIS) TABLET PO SCH ×2 (07:55→21:44)
[2022-02-16] MEDS: FUROSEMIDE 40 MG (LASIX) TAB PO SCH (07:55)
[2022-02-16] MEDS: DOCUSATE SODIUM 100 MG (COLACE) CAP PO SCH ×2 (07:55→21:00)
[2022-02-16 07:56] VITALS: BP 154/60
[2022-02-16] MEDS: KCL 20 MEQ TAB (K-DUR) PO SCH ×3 (07:56→18:08)
[2022-02-16] MEDS: GABAPENTIN 100 MG (NEURONTIN) CAP PO SCH ×3 (07:56→21:44)
[2022-02-16] MEDS: VITAMIN D3 25 MCG (1,000 UNITS) TABLET PO SCH (07:56)
[2022-02-16] MEDS: AMIODARONE 200 MG (CORDARONE) TAB PO SCH (07:56)
[2022-02-16] MEDS: SENNA W/DOCUSATE (SENOKOT S) TABLET PO SCH ×2 (07:56→21:00)
[2022-02-16] MEDS: CLOPIDOGREL 75 MG (PLAVIX) TABLET PO SCH (07:56)
[2022-02-16] MEDS: PANTOPRAZOLE 40 MG (PROTONIX) TAB PO SCH (07:57)
[2022-02-16] MEDS: polyethylene glycoL POWDER 17 GM (MIRALAX) PACK PO SCH ×2 (08:00→21:00)
--- NOTE | 2022-02-16 10:05 | Physical Therapy Daily Note ---
PT Daily Note-Current Subjective Pt. agrees to Rx, present, supportive and involved. Pt. c/o pain in residual limb off on during Rx, positional and brushing up against something etc. Mental Status Patient Orientation: Normal For Age Transfers SCALE: Activities may be completed with or without assistive devices. 7-Tywsrnqbiw-iiplhne completes the activity by him/herself with no assistance from a helper. 5-Set-up or Clean-up Assistance-helper sets up or cleans up; patient completes activity. [place] assists only prior to or following the activity. 4-Supervision or Touching Assistance-helper provides verbal cues and/or touching/steadying and/or contact guard assistance as patient completes activity. Assistance may be provided throughout the activity or intermittently. 3-Partial/Moderate Assistance-helper does LESS THAN HALF the effort. [place] lifts, holds or supports trunk or limbs, but provides less than half the effort. 2-Substantial/Maximal Assistance-helper does MORE THAN HALF the effort. [place] lifts or holds trunk or limbs and provides more than half the effort. 4-Ctisbvgnr-btvvjx does ALL the effort. Patient does none of the effort to comp lete the activity. Or, the assistance of 2 or more helpers is required for the patient to complete the activity. If activity was not attempted, code reason: 7-Patient Refused. 9-Not Applicable-not attempted and the patient did not perform the activity before the current illness, exacerbation or injury. 10-Not Attempted due to Environmental Limitations-(lack of equipment, weather restraints, etc.). 88-Not Attempted due to Medical Conditions or Safety Concerns. Roll Left & Right (QC): 6 Sit to Lying (QC): 6 Lying to Sitting/Side of Bed(Q: 6 Sit to Stand (QC): 4 Chair/Oix-cq-Zgvlx Xfer(QC): 3 improved stance with TRFs, pt. gives full effort and seems less fearful today Wheelchair Training Does the Pt Use a Wheelchair?: Yes Wheel 50 ft with 2 turns (QC): 6 Type of Wheelchair: Manual braking, in out elevator, over threshhold etc, 180 deg turns all with instruction only, up down ADA ramp 75 ft x 2, down forwrd, up frwrd and back with steer asst Exercises Supine Ex: Ankle pumps, Quad Set, Rolling, Glut sets, Scooting, Straight leg raise, Hip abd/add Supine Reps: 15 Treatments emphasis on sit to stand, stood x 3 in // bars approx 30-40 sec with good alignment, practiced 1st pulling on // bars , then advanced to pushing up from w/c arms, mod asst , then in stance nolt CGA, w/c mob as described above, supine ex, ramp w/c mob , present for all and helped brain storm their bed and bedroom space for TRFs. co Rx with OT for TRFs, U&L ext coordination as well as planning for possible new w/c for pt. Assessment Current Status: Good Progress good progress and noted increased confidence today PT Short Term Goals Short Term Goals Time Frame: Feb 17, 2022 Roll Left & Right: 6 Sit to lyin (Batsheva) Lying to sitting on side of be: 3 (Batsheva) Sit to stand: 3 (Batsheva) Chair/yex-aw-yfwvz transfer: 3 Walk 10 feet: 3 (Batsheva) PT Intermediate Goals Belting And Webbing Inspector Goals PT Intermediate Goals Time Frame: Mar 03, 2022 Roll Left & Right (QC): 6 Sit to Lying (QC): 4 (CGA) Lying-Sitting on Side/Bed(QC): 4 (CGA) Sit to Stand (QC): 4 (CGA) Chair/Ufb-uk-Yudkx Xfer(QC): 4 (CGA) Toilet Transfer (QC): 4 (CGA) Car Transfer (QC): 4 (CGA) Does the Patient Walk: Yes Walk 10 feet (QC): 4 (CGA) Walk 50ft with 2 Turns (QC): 88 Walk 150 ft (QC): 88 Walking 10ft on Uneven Surface: 4 (CGA) 1 Step (curb) (QC): 88 4 Steps (QC): 88 12 Steps (QC): 88 Picking up an Object (QC): 4 (CGA) Wheel 50 feet with 2 turns (QC: 6 Wheel 150 feet: 6 PT Plan Treatment/Plan Treatment Plan: Continue Plan of Care Treatment Plan: Bed Mobility, Education, Functional Activity Lalit, Functional Strength, Group Therapy, Gait, Safety, Therapeutic Exercise, Transfers Treatment Duration: Mar 03, 2022 Frequency: At least 5 of 7 days/Wk (IRF) Estimated Hrs Per Day: 1.5 hours per day Patient and/or Family Agrees t: Yes Safety Risks/Education Patient Education: Transfer Techniques, Correct Positioning, W/C Management, Safety Issues Teaching Recipient: Patient, Family Teaching Methods: Demonstration, Discussion Response to Teaching: Verbalize Understanding, Return Demonstration, Elliot nforcement Needed Time/GCodes Time In: 900 Time Out: 1000 Total Billed Treatment Time: 60 Total Billed Treatment 1,FA35m,w/c 15m,EX10m (60m co Rx) KIKE DUARTE LIQUOR GRINDING MILL OPERATOR Feb 16, 2022 10:05
--- NOTE | 2022-02-16 10:13 | Occupational Ther Daily Note ---
OT Current Status-Daily Note Subjective Pt sitting in recliner upon OT arrival. Pt reports being tired, but agreeable to OT/PT cotreat. Mental Status/Objective Patient Orientation: Person, Place, Situation ADL-Treatment Therapy Code Descriptions/Definitions Functional [place] Measure: 0=Not Assessed/NA 4=Minimal Assistance 1=Total Assistance 5=Supervision or Setup 2=Maximal Assistance 6=Modified [place] 3=Moderate Assistance 7=Complete IndependenceSCALE: Activities may be completed with or without assistive devices. 7-Xwguexmcka-imkjmno completes the activity by him/herself with no assistance from a helper. 5-Set-up or Clean-up Assistance-helper sets up or cleans up; patient completes activity. [place] assists only prior to or following the activity. 4-Supervision or Touching Assistance-helper provides verbal cues and/or touching/steadying and/or contact guard assistance as patient completes activity. Assistance may be provided throughout the activity or intermittently. 3-Partial/Moderate Assistance-helper does LESS THAN HALF the effort. [place] lifts, holds or supports trunk or limbs, but provides less than half the effort. 2-Substantial/Maximal Assistance-helper does MORE THAN HALF the effort. [place] lifts or holds trunk or limbs and provides more than half the effort. 2-Hbqpfwhrq-iajuun does ALL the effort. Patient does none of the effort to complete the activity. Or, the assistance of 2 or more helpers is required for the patient to complete the activity. If activity was not attempted, code reason: 7-Patient Refused. 9-Not Applicable-not attempted and the patient did not perform the activity before the current illness, exacerbation or injury. 10-Not Attempted due to Environmental Limitations-(lack of equipment, weather restraints, etc.). 88-Not Attempted due to Medical Conditions or Safety Concerns. Oral Hygiene (QC): 5 (Bedside set up per pt and report) On/Off Footwear: 3 (Min A with velcro straps per pt and report. Pt able to put shoe on with shoe funnel.) Toileting Hygiene (QC): 5 (with urinal at bedside ) Other Treatment OT/PT cotreat due to skill of 2 clinicians required which a rehabilitation specialist could not perform in order to coordinate UE/LEs, decrease fall risk, and due to pt's limitations in strength, activity tolerance, transfers and mobility. OT focused on UE placement and cues for sequencing and safety, PT focused on LE placement, gross overall movement, transfers/mobility. Pt and educated on safe w/c transfers, focusing on w/c placement, transferring to the R, using BUE to push off w/c arms, and full R knee extension in standing. Both demonstrated understanding, implementing techniques during SPT from recliner to w/c. Pt stood in parallel bars x3, 30-40 seconds each stand. Pt wheeled to therapy gym for fu nctional transfer training and BUE and BLE exercises (BUE ex: shuffled R and then L to edge of the mat 2x; BLE ex: see PT note) that focused on increasing IND in transfers. SPT from edge of mat to w/c to address community mobility. Pt navigated hallways, elevator, and ramp with w/c. OT/PT provided education about navigating ramps, such as going up ramp backwards, using R leg to propel/push w/c, and using akers in floor to assist wheeling in straight line when going up the ramp backwards. Pt pushed back to room and transferred back to recliner. Pt and educated on keeping L knee extended to prevent contractures and elevate legs to promote circulation, both verbalized understanding. Post tx, pt left in recliner with call light in reach and all needs met. SPT ranged from min-mod A, with assist of 1-2, cues required for UE placement and sequencing with transfers. Education OT Patient Education: Correct positioning, Energy conservation, Exercise program, Instructions to caregiver, Modified ADL techniques, Progress toward Goal/Update tx plan, Purpose of tx/functional activities, Rehab process, Safety issues, Transfer techniques, W/C management Teaching Recipient: Patient, Significant Other Teaching Methods: Demonstration, Discussion Response to Teaching: Verbalize Understanding, Return Demonstration OT Short Term Goals Short Term Goals Time Frame: Feb 24, 2022 Shower/bathe self: 3 Lower body dressin OT Fdc Goals Fdc Goals Time Frame: Mar 10, 2022 Eating (QC): 6 Oral Hygiene (QC): 6 Toileting Hygiene (QC): 6 Shower/Bathe Self (QC): 4 Upper Body Dressing (QC): 4 Lower Body Dressing (QC): 3 On/Off Footwear (QC): 3 Additional Goals: 1-Demonstrate ADL Tasks, 2-Verbalize Understanding, 3- ImproveStrength/Lalit 1=Demonstrate adherence to instructed precautions during ADL tasks. 2=Patient will verbalize/demonstrate understanding of assistive devices/christian fications for ADL. 3=Patient will improve strength/tolerance for activity to enable patient to perform ADL's. OT Education/Plan Problem List/Assessment Assessment: Decreased Activ Tolerance, Decreased UE Strength, Impaired Funct Balance, Impaired I ADL's, Impaired Self-Care Skills, Restricted Funct UE ROM Discharge Recommendations Plan/Recommendations: Continue POC Treatment Plan/Plan of Care Patient would benefit from OT for education, treatment and training to promote independence in ADL's, mobility, safety and/or upper extremity function for ADL's. Plan of Care: ADL Retraining, Functional Mobility, Group Exercise/Act as Ind, UE Funct Exercise/Act, UE Neuromus Re-Ed/Coord, W/C Management Training Treatment Duration: Mar 10, 2022 Frequency: At least 5 of 7 days/Wk (IRF) Estimated Hrs Per Day: 1.5 hours per day Agreement: Yes Rehab Potential: Fair Time/GCodes Start Time: 09:00 Stop Time: 10:00 Total Time Billed (hr/min): 60 Billed Treatment Time 1132-2550: OT/PT cotreat 1, Ex 2 (30'), FA 2 (30') OCTAVIA ORLANDO OT Feb 16, 2022 10:13
--- NOTE | 2022-02-16 13:41 | Occupational Ther Daily Note ---
OT Current Status-Daily Note Subjective Pt alert, sitting in recliner. Pt agrees to therapy. No c/o pain. Mental Status/Objective Patient Orientation: Person, Place, Time, Situation ADL-Treatment Pt requests to use toilet. Family training with for squat pivot transfer from chair to w/c, w/c <--> toilet. demonstrates understanding though requires practice to become proficient. Pt able to doff/don pants and complete hygiene while sitting on toilet. Mod A for transfer, independent for toileting. Pt educated on donning/doffing shirt with modified technique due to decreased AROM of B shldrs. Pt demonstrated understanding of technique though will need further practice to become proficient. Discussion with pt and on what AE to order for dressing. Pt verbalized understanding and found items on [employer] to get. After session, pt sitting in w/c with call light/phone in reach. All needs met in room. Therapy Code Descriptions/Definitions Functional [place] Measure: 0=Not Assessed/NA 4=Minimal Assistance 1=Total Assistance 5=Supervision or Setup 2=Maximal Assistance 6=Modified [place] 3=Moderate Assistance 7=Complete IndependenceSCALE: Activities may be completed with or without assistive devices. 8-Noaqfcaqoi-dvvfjwo completes the activity by him/herself with no assistance from a helper. 5-Set-up or Clean-up Assistance-helper sets up or cleans up; patient completes activity. [place] assists only prior to or following the activity. 4-Supervision or Touching Assistance-helper provides verbal cues and/or touching/steadying and/or contact guard assistance as patient completes activity. Assistance may be provided throughout the activity or intermittently. 3-Partial/Moderate Assistance-helper does LESS THAN HALF the effort. [place] lifts, holds or supports trunk or limbs, but provides less than half the effort. 2-Substantial/Maximal Assistance-helper does MORE THAN HALF the effort. [place] lifts or holds trunk or limbs and provides more than half the effort. 8-Lcwrtncgf-zjfhbk does ALL the effort. Patient does none of the effort to complete the activity. Or, the assistance of 2 or more helpers is required for the patient to complete the activity. If activity was not attempted, code reason: 7-Patient Refused. 9-Not Applicable-not attempted and the patient did not perform the activity before the current illness, exacerbation or injury. 10-Not Attempted due to Environmental Limitations-(lack of equipment, weather restraints, etc.). 88-Not Attempted due to Medical Conditions or Safety Concerns. Oral Hygiene (QC): 6 Upper Body Dressing (QC): 5 Toileting Hygiene (QC): 6 Toilet Transfer (QC): 3 OT Short Term Goals Short Term Goals Time Frame: Feb 24, 2022 Shower/bathe self: 3 Lower body dressin OT Checking Clerk Goals Checking Clerk Goals Time Frame: Mar 10, 2022 Eating (QC): 6 Oral Hygiene (QC): 6 Toileting Hygiene (QC): 6 Shower/Bathe Self (QC): 4 Upper Body Dressing (QC): 4 Lower Body Dressing (QC): 3 On/Off Footwear (QC): 3 Additional Goals: 1-Demonstrate ADL Tasks, 2-Verbalize Understanding, 3- ImproveStrength/Lalit 1=Demonstrate adherence to instructed precautions during ADL tasks. 2=Patient will verbalize/demonstrate understanding of assistive devices/modifications for ADL. 3=Patient will improve strength/tolerance for activity to enable patient to perform ADL's. OT Education/Plan Problem List/Assessment Assessment: Decreased Activ Tolerance, Impaired Self-Care Skills, Restricted Funct UE ROM Discharge Recommendations Plan/Recommendations: Continue POC Treatment Plan/Plan of Care Patient would benefit from OT for education, treatment and training to promote independence in ADL's, mobility, safety and/or upper extremity function for ADL's. Plan of Care: ADL Retraining, Functional Mobility, Group Exercise/Act as Ind, UE Funct Exercise/Act, UE Neuromus Re-Ed/Coord, W/C Management Training Treatment Duration: Mar 10, 2022 Frequency: At least 5 of 7 days/Wk (IRF) Estimated Hrs Per Day: 1.5 hours per day Agreement: Yes Rehab Potential: Fair Time/GCodes Start Time: 12:36 Stop Time: 13:20 Total Time Billed (hr/min): 44 Billed Treatment Time 1 visit-ADL 3 (44 min) KATERIN MONTENEGRO Feb 16, 2022 13:41
[2022-02-16] MEDS: GLIMEPIRIDE 1 MG (AMARYL) TAB PO SCH (13:43)
--- NOTE | 2022-02-16 14:08 | Physical Therapy Daily Note ---
PT Daily Note-Current Subjective Pt. and present. Pt. states he is feeling so much more confident in himself and knows he will be protected and guided well here. Pt. states , "Wanna see me try to do that TRF by myself"? PT: "not just yet" laughs Pain Numeric Pain Scale: 4 Location: Left Location Body Site: Calf (residual limb) Pain Description: Throbbing Mental Status Patient Orientation: Normal For Age Transfers SCALE: Activities may be completed with or without assistive devices. 8-Kvkbsdizlw-fqsdcjr completes the activity by him/herself with no assistance from a helper. 5-Set-up or Clean-up Assistance-helper sets up or cleans up; patient completes a ctivity. [place] assists only prior to or following the activity. 4-Supervision or Touching Assistance-helper provides verbal cues and/or touching/steadying and/or contact guard assistance as patient completes activity. Assistance may be provided throughout the activity or intermittently. 3-Partial/Moderate Assistance-helper does LESS THAN HALF the effort. [place] lifts, holds or supports trunk or limbs, but provides less than half the effort. 2-Substantial/Maximal Assistance-helper does MORE THAN HALF the effort. [place] lifts or holds trunk or limbs and provides more than half the effort. 6-Vjibuehyk-yxbtgs does ALL the effort. Patient does none of the effort to complete the activity. Or, the assistance of 2 or more helpers is required for the patient to complete the activity. If activity was not attempted, code reason: 7-Patient Refused. 9-Not Applicable-not attempted and the patient did not perform the activity before the current illness, exacerbation or injury. 10-Not Attempted due to Environmental Limitations-(lack of equipment, weather restraints, etc.). 88-Not Attempted due to Medical Conditions or Safety Concerns. SPT w/c to recliner mod to min assist. Pt. positioning himself by wheeling w/c to recliner in good readied position. was reviewed in how to apply gait belt, pt. reaches for arm of recliner and moves safely with mod assist. Exercises Supine Ex: Knee to chest, Straight leg raise, Hip abd/add Supine Reps: 10 Treatments SPTs, pt. positions self in recliner and utilizes all levers etc with cues, pt. instructed again in elevating LEs for circulation etc. Assessment Current Status: Good Progress PT Short Term Goals Short Term Goals Time Frame: Feb 17, 2022 Roll Left & Right: 6 Sit to lyin (Batsheva) Lying to sitting on side of be: 3 (Batsheva) Sit to stand: 3 (Batsheva) Chair/gvz-ue-mcjgu transfer: 3 Walk 10 feet: 3 (Batsheva) PT Optometric Assistant Goals Intermediate Goals PT Optometric Assistant Goals Time Frame: Mar 03, 2022 Roll Left & Right (QC): 6 Sit to Lying (QC): 4 (CGA) Lying-Sitting on Side/Bed(QC): 4 (CGA) Sit to Stand (QC): 4 (CGA) Chair/Xwx-ae-Mztnx Xfer(QC): 4 (CGA) Toilet Transfer (QC): 4 (CGA) Car Transfer (QC): 4 (CGA) Does the Patient Walk: Yes Walk 10 feet (QC): 4 (CGA) Walk 50ft with 2 Turns (QC): 88 Walk 150 ft (QC): 88 Walking 10ft on Uneven Surface: 4 (CGA) 1 Step (curb) (QC): 88 4 Steps (QC): 88 12 Steps (QC): 88 Picking up an Object (QC): 4 (CGA) Wheel 50 feet with 2 turns (QC: 6 Wheel 150 feet: 6 PT Plan Treatment/Plan Treatment Plan: Continue Plan of Care Treatment Plan: Bed Mobility, Education, Functional Activity Lalit, Functional Strength, Group Therapy, Gait, Safety, Therapeutic Exercise, Transfers Treatment Duration: Mar 03, 2022 Frequency: At least 5 of 7 days/Wk (IRF) Estimated Hrs Per Day: 1.5 hours per day Patient and/or Family Agrees t: Yes Safety Risks/Education Patient Education: Transfer Techniques, Correct Positioning, Safety Issues Teaching Recipient: Patient, Family Teaching Methods: Demonstration, Discussion Response to Teaching: Verbalize Understanding, Return Demonstration, Reinforcement Needed Time/GCodes Time In: 1330 Time Out: 1400 Total Billed Treatment Time: 30 Total Billed Treatment 1,EX10m,FA20m KIKE DUARTE HEALTH SAFETY SPECIALIST Feb 16, 2022 14:08
--- NOTE | 2022-02-16 14:08 | Progress Note - Surgery ---
Subjective Time Seen by a Provider: 11:31 Subjective/Events-last exam Pt seen and examined, he states he thinks he is doing better. Review of Systems Pulmonary: No Dyspnea, No Cough Cardiovascular: No: Chest Pain, Palpitations Gastrointestinal: No: Nausea, Vomiting, Abdominal Pain Musculoskeletal: leg pain Objective Exam Vital Signs Date Time Temp Pulse Resp B/P (MAP) Pulse Ox O2 Delivery O2 Flow Rate FiO2 02/16/22 09:00 Room Air 02/16/22 07:56 35.8 73 14 154/60 (91) 96 Room Air 02/15/22 20:30 Room Air 02/15/22 19:56 36.4 90 18 115/51 (72) 91 Room Air Capillary Refill : General Appearance: No Apparent Distress, Chronically ill HEENT: PERRL/EOMI, Moist Mucous Membranes Neck: Carotid Bruit Respiratory: Chest Non Tender, Lungs Clear, Normal Breath Sounds, No Accessory Muscle Use, No Respiratory Distress Cardiovascular: No Murmur, Irregularly Irregular Peripheral Pulses: 0 Femoral (R) (I can't feel either, pt states they get them with doppler), 0 Femoral (L); 1+ Radial Pulses (R), 1+ Radial Pulses (L) Gastrointestinal: non tender, soft, no organomegaly Extremity: Other (Left BKA, skin at staple line actually looks much better, compression damage is about the same) Neurologic/Psychiatric: Alert, Oriented x3 Results Lab Laboratory Tests 02/15/22 15:17: Glucometer 180H 02/15/22 20:11: Glucometer 180H 02/16/22 05:34: Glucometer 141H 02/16/22 10:46: Glucometer 243H Assessment/Plan Assessment/Plan Assessment/Plan Left BKA Peripheral Vascular Disease Ischemia of Left limb The skin actually looks less whitish today, the rest is not worse. I think it can recover a little bit more at least and would recommend continuing non- operative management. The damage was caused by the compression and stabilizing devices they put on after surgery. We are trying to avoid an AKA. He is also at risk for ischemia because he has such bad peripheral vascular disease. Will continue to monitor. GAVIOTA COLEY DO Feb 16, 2022 14:08
[2022-02-16 20:25] VITALS: BP 130/56
[2022-02-16] MEDS: MELATONIN 3 MG TABLET PO PRN (21:44)
[2022-02-16] MEDS: ACETAMINOPHEN 325 MG TABLET PO PRN (21:45)
[2022-02-17] MEDS: inSUlin ASPART (NovoLOG) 1 UNIT/0.01 ML (CHARGE PER UNIT) SC SCH ×4 (06:11→20:30)
--- NOTE | 2022-02-17 06:13 | PM&R Progress Note ---
Subjective HPI/CC On Admission Date Seen by Provider: Feb 17, 2022 Time Seen by Provider: 11:30 Subjective/Events-last exam 02/17/2022: Pt is doing a lot better Loose bowel movement noted Gabapentin 200 mg TID has given much improvement in pain No other falls Checked meds and labs 02/16/2022: Pt is doing well Dr. Perez thought the leg looked better today and didn't require surgery Will take Melatonin tonight to help him sleep Bowels moved yesterday Sugars are elevated so will start Amaryl 1 mg to the Metformin 500 BID started yesterday 02/15/2022: Pt is doing really well Bowels moved two days ago Dr. Wade did treat his toenails Dr. Guido wants a general surgeon to debride it or the pt can go back over to Dr. Guido at [place] to have that done with his leg 02/14/2022: Patient doing a lot better Complaining of pain but declines any pain medication Sugar is much improved after hypoglycemia Bowels are moving now at bedside 02/13/2022: Patient doing a lot better Blood sugars 164, 113 Declines to take morphine for addiction potential really helps the patient 02/12/2022: Patient doing pretty well at bedside Blood sugar is 99 after being very low Suppository produced a small bowel movement so we will initiate more laxatives or Holding metoprolol due to low blood pressure Holding losartan as of yesterday due to low blood pressure Mag citrate is being used for constipation today 02/11/2022: Patient doing really well Blood sugars reviewed and holding metformin and oral hypoglycemic agent due to hypoglycemia Pain is controlled Laxatives given Checked meds and labs Review of Systems General: Fatigue, Malaise Musculoskeletal: leg pain Objective Exam Vital Signs Vital Signs Date Time Temp Pulse Resp B/P (MAP) Pulse Ox O2 Delivery O2 Flow Rate FiO2 02/17/22 19:44 36.6 75 20 162/68 (99) 97 Room Air Capillary Refill : General Appearance: No Apparent Distress, WD/WN, Chronically ill HEENT: PERRL/EOMI, Normal ENT Inspection, Pharynx Normal Neck: Full Range of Motion, Normal Inspection, Non Tender, Supple, Carotid Bruit Respiratory: Chest Non Tender, Lungs Clear, Normal Breath Sounds, No Accessory Muscle Use, No Respiratory Distress Cardiovascular: No Edema, No Gallop, No JVD, No Murmur, Normal Peripheral Pulses, Irregularly Irregular Gastrointestinal: Normal Bowel Sounds, No Organomegaly, No Pulsatile Mass, Non Tender, Soft Back: Normal Inspection, No CVA Tenderness, No Vertebral Tenderness Extremity: Normal Capillary Refill, Normal Inspection, Normal Range of Motion, Non Tender, No Calf Tenderness, No Pedal Edema Neurologic/Psychiatric: Alert, Oriented x3, Normal Mood/Affect, ict sales assistant II-XII Norm as Tested, Abnormal Gait, Motor Weakness (left sided lower extremity BKA) Skin: Normal Color, Warm/Dry Lymphatic: No Adenopathy Results/Procedures Lab Patient resulted labs reviewed. FIM Transfers Therapy Code Descriptions/Definitions Functional [place] Measure: 0=Not Assessed/NA 4=Minimal Assistance 1=Total Assistance 5=Supervision or Setup 2=Maximal Assistance 6=Modified [place] 3=Moderate Assistance 7=Complete IndependenceSCALE: Activities may be completed with or without assistive devices. 8-Yzgdvwcvoi-wknlygb completes the activity by him/herself with no assistance from a helper. 5-Set-up or Clean-up Assistance-helper sets up or cleans up; patient completes activity. [place] assists only prior to or following the activity. 4-Supervision or Touching Assistance-helper provides verbal cues and/or touching/steadying and/or contact guard assistance as patient completes activity. Assistance may be provided throughout the activity or intermittently. 3-Partial/Moderate Assistance-helper does LESS THAN HALF the effort. [place] lifts, holds or supports trunk or limbs, but provides less than half the effort. 2-Substantial/Maximal Assistance-helper does MORE THAN HALF the effort. [place] lifts or holds trunk or limbs and provides more than half the effort. 4-Qzuaqfhjh-pdinta does ALL the effort. Patient does none of the effort to complete the activity. Or, the assistance of 2 or more helpers is required for the patient to complete the activity. If activity was not attempted, code reason: 7-Patient Refused. 9-Not Applicable-not attempted and the patient did not perform the activity before the current illness, exacerbation or injury. 10-Not Attempted due to Environmental Limitations-(lack of equipment, weather restraints, etc.). 88-Not Attempted due to Medical Conditions or Safety Concerns. Roll Left to Right (QC): 6 Sit to Lying (QC): 6 Sit to Stand (QC): 4 Chair/Rab-kq-Mzxtf Xfer(QC): 3 Car Transfer (QC): 3 Gait Training Does the Patient Walk?: No and Walking Goal IS indicated Walk 10 feet (QC): 88 Walk 50 ft with 2 Turns(QC): 88 Walk 150 ft (QC): 88 Walking 10ft/uneven surface-QC: 88 Gait Assistive Device: Parallel Bars Wheelchair Training Does the Pt Use a Wheelchair?: Yes Distance: 150'x2 Wheel 50 ft with 2 turns (QC): 6 Wheel 150 ft (QC): 4 Type of Wheelchair: Manual Stair Training 1 Step (curb) (QC): 88 4 Steps (QC): 88 12 Steps (QC): 88 Balance Picking up an Object (QC): 88 ADL-Treatment Eating (QC): 6 (per pt report) Oral Hygiene (QC): 6 Shower/Bathe Self (QC): 5 (cover dressings and wounds) Upper Body Dressing (QC): 5 Lower Body Dressing (QC): 1 (Assist x2 in stand. Pt attempted to don pants seated but unable to fully get over hips.) On/Off Footwear (QC): 3 (Min A with velcro straps per pt and report. Pt able to put shoe on with shoe funnel.) Toileting Hygiene (QC): 6 Toilet Transfer (QC): 3 Assessment/Plan Assessment and Plan Assess & Plan/Chief Complaint Assessment: GEORGINA 02/07/22 Severe PVD PAF OAC HTN HLP DM Hypothyroidism Hypoglycemia holding metformin and glimepiride Constipation Plan: Home meds SSI PT OT Pain control BM treatment 02/11/2022: Hold diabetic meds due to hypoglycemia Pain control Bowel regimen 02/12/2022: BM regimen Monitor glucose 02/13/2022: Monitor sugar Hypoglycemia high risk 02/14/2022: Monitor closely Pain control Sugar monitoring 02/15/2022: Consult Dr Perez Restart Metformin 02/16/2022: Appreciate Dr Perez Add Amaryl 02/17/2022: Improved sugars Increase Gabapentin slowly (1) Amputation of left lower extremity below knee XIOMARA DICKENS DO Feb 17, 2022 06:13
[2022-02-17] MEDS: metFORMIN 500 MG (GLUCOPHAGE) TAB PO SCH ×2 (06:16→16:41)
[2022-02-17] MEDS: GLIMEPIRIDE 1 MG (AMARYL) TAB PO SCH (06:16)
[2022-02-17] MEDS: LEVOTHYROXINE 100 MCG (LEVOTHROID) TAB PO SCH (06:16)
[2022-02-17 07:56] VITALS: BP 143/66
--- NOTE | 2022-02-17 08:10 | Progress Note - Surgery ---
SERGIO ISLAS Bailey 02/17/22 0809: Subjective Date Seen by a Provider: Feb 17, 2022 Time Seen by a Provider: 07:20 Subjective/Events-last exam Mr. Coffey is being followed for wound care of his left leg stump s/p left BKA. This morning he reports pain but he thinks it is improved. His appetite is adeq uate and he reports having a bowel movement yesterday. No other concerns of complaints this morning. Review of Systems General: No Chills, No Fatigue HEENT: No Head Aches, No Visual Changes Pulmonary: No Dyspnea, No Cough Cardiovascular: No: Chest Pain, Palpitations Gastrointestinal: No: Nausea, Vomiting Musculoskeletal: leg pain Neurological: No: Weakness, Confusion Objective Exam Vital Signs Date Time Temp Pulse Resp B/P (MAP) Pulse Ox O2 Delivery O2 Flow Rate FiO2 02/17/22 07:56 36.3 78 18 143/66 (91) 93 Room Air 02/16/22 21:00 Room Air 02/16/22 20:25 36.1 67 18 130/56 (80) 97 Room Air 02/16/22 09:00 Room Air Capillary Refill : General Appearance: No Apparent Distress, WD/WN, Chronically ill HEENT: PERRL/EOMI; No Scleral Icterus (L), No Scleral Icterus (R) Respiratory: Chest Non Tender, Lungs Clear, Normal Breath Sounds, No Accessory Muscle Use, No Respiratory Distress Cardiovascular: Regular Rate, Rhythm (Patient has paroxysmal AFIB), No Murmur; No Normal Peripheral Pulses Peripheral Pulses: 0 Dorsalis Pedis (R); 2+ Radial Pulses (R), 2+ Radial Pulses (L) Extremity: Other (Pain in left leg stump. Dressing and stocking in place. Stocking removed and dressing in tact, clean, and dry. Tender with manipulation.) Neurologic/Psychiatric: Alert, Oriented x3, No Motor/Sensory Deficits, Normal Mood/Affect Results Lab Laboratory Tests 02/16/22 10:46: Glucometer 243H 02/16/22 15:53: Glucometer 171H 02/16/22 20:24: Glucometer 126H 02/17/22 06:04: Glucometer 101 Assessment/Plan Assessment/Plan Assessment/Plan Assessment: s/p Left BKA Peripheral Vascular Disease Ischemia of Left limb Plan: Continue with non-operative management at this time. Damage likely d/t compression and stabilizing devices placed on stump after surgery. Trying to avoid AKA. Patient at risk for ischemia. Continue pain control as needed, monitor for status changes. Dressing changes daily. YONI PEREZ DO 02/17/22 1028: Subjective Time Seen by a Provider: 08:52 Subjective/Events-last exam Pt seen and examined, states he thinks the pain is better. Tolerating diet, +BM Review of Systems General: No Chills Pulmonary: No Dyspnea, No Cough Cardiovascular: No: Chest Pain, Palpitations Gastrointestinal: No: Nausea, Vomiting Objective Exam General Appearance: No Apparent Distress, Chronically ill HEENT: PERRL/EOMI, Moist Mucous Membranes Respiratory: Lungs Clear, Normal Breath Sounds, No Accessory Muscle Use, No Respiratory Distress Cardiovascular: Regular Rate, Rhythm (Patient has paroxysmal AFIB), No Murmur Extremity: Other (Pain in left leg stump. Dressing and stocking removed on top just below knee looks like bad sunburn with loss of superficial skin, on lateral aspect it appear a little worse color is dark yellow, below skin which will probably fall off, medial aspect the skin is black (unsure if this is an eschar or necrosis, could be both).) Assessment/Plan Assessment/Plan Assessment/Plan s/p Left BKA Peripheral Vascular Disease Ischemia of Left limb Plan: Continue with non-operative management at this time. I told pt that we were not going to be aggressive and will monitor to see how it heals and then what needs to be done. Damage likely d/t compression and stabilizing devices placed on stump after surgery. Trying to avoid AKA. Patient at risk for ischemia. Continue pain control as needed, monitor for status changes. Dressing changes daily. Supervisory-Addendum Brief Verification & Attestation Participated in pt care: history, MDM, physical Personally performed: exam, history, MDM, supervision of care Care discussed with: Medical Student Procedures: n/a Verification and Attestation of Medical Student E/M Service A medical student performed and documented this service. I then reviewed and verified all information documented by the medical student and made modifications to such information, when appropriate. I personally performed a physical exam, medical decision making and then discussed any differences between the notes and made revisions as necessary to create one note. Yoni Perez , 02/17/22 , 10:28 SERGIO ISLAS Feb 17, 2022 08:09 YONI PEREZ DO Feb 17, 2022 10:28
[2022-02-17] MEDS: AMIODARONE 200 MG (CORDARONE) TAB PO SCH (08:23)
[2022-02-17] MEDS: GABAPENTIN 100 MG (NEURONTIN) CAP PO SCH ×3 (08:23→21:25)
[2022-02-17] MEDS: FUROSEMIDE 40 MG (LASIX) TAB PO SCH (08:23)
[2022-02-17] MEDS: APIXABAN 5 MG (ELIQUIS) TABLET PO SCH ×2 (08:23→21:25)
[2022-02-17] MEDS: VITAMIN D3 25 MCG (1,000 UNITS) TABLET PO SCH (08:23)
[2022-02-17] MEDS: KCL 20 MEQ TAB (K-DUR) PO SCH ×3 (08:23→17:28)
[2022-02-17] MEDS: DOCUSATE SODIUM 100 MG (COLACE) CAP PO SCH ×2 (09:33→21:30)
[2022-02-17] MEDS: polyethylene glycoL POWDER 17 GM (MIRALAX) PACK PO SCH ×2 (09:33→21:30)
[2022-02-17] MEDS: SENNA W/DOCUSATE (SENOKOT S) TABLET PO SCH ×2 (09:33→21:30)
--- NOTE | 2022-02-17 09:37 | Physical Therapy Daily Note ---
PT Daily Note-Current Subjective Pt. states he slept in the recliner again, "its so much more comfortable" defends pt. and says he will probably sleep in his recliner at home. Educated again regarding skin protection and position changes. Pt. states pain in approx 5/10. Dr Perez enters not long in to Rx time to undress residual limb to view wound/incision. Pain Numeric Pain Scale: 5-Moderate Pain Location: Left Location Body Site: Calf Pain Description: Pressure Appearance incision veiwed Mental Status Patient Orientation: Normal For Age Transfers SCALE: Activities may be completed with or without assistive devices. 3-Bxqlhxgibc-hcfmpjb completes the activity by him/herself with no assistance from a helper. 5-Set-up or Clean-up Assistance-helper sets up or cleans up; patient completes activity. [place] assists only prior to or following the activity. 4-Supervision or Touching Assistance-helper provides verbal cues and/or touching/steadying and/or contact guard assistance as patient completes activity. Assistance may be provided throughout the activity or intermittently. 3-Partial/Moderate Assistance-helper does LESS THAN HALF the effort. [place] lifts, holds or supports trunk or limbs, but provides less than half the effort. 2-Substantial/Maximal Assistance-helper does MORE THAN HALF the effort. [place] lifts or holds trunk or limbs and provides more than half the effort. 5-Bmllpxqgs-lmydeb does ALL the effort. Patient does none of the effort to complete the activity. Or, the assistance of 2 or more helpers is required for the patient to complete the activity. If activity was not attempted, code reason: 7-Patient Refused. 9-Not Applicable-not attempted and the patient did not perform the activity before the current illness, exacerbation or injury. 10-Not Attempted due to Environmental Limitations-(lack of equipment, weather restraints, etc.). 88-Not Attempted due to Medical Conditions or Safety Concerns. Roll Left & Right (QC): 6 Sit to Stand (QC): 4 Chair/Max-en-Xdafc Xfer(QC): 4 sit to stand and SPT training with requiring only CGA of OT and min asst of to SPT toward right recliner into w/c Exercises Supine Ex: Ankle pumps (right), Quad Set, Glut sets, Heel Slides, Scooting (up in recliner), Straight leg raise, Hip abd/add Supine Reps: 15 Seated Therapy Exercises: Sit to stand, Long arc quads Seated Reps: 10 Treatments supine LE ex as above as well as education for and pt. on donning stump sock, SPTs etc, wound was uncovered until nurse came to redress giving pt. and opportunity to view it and watch dressing and help reapply etc, pt. was actively involved in this as well Assessment Current Status: Good Progress improved TRF skills and increased mobility PT Short Term Goals Short Term Goals Time Frame: Feb 17, 2022 Roll Left & Right: 6 Sit to lyin (Batsheva) Lying to sitting on side of be: 3 (Batsheva) Sit to stand: 3 (Batsheva) Chair/kih-xa-jthvk transfer: 3 Walk 10 feet: 3 (Batsheva) PT Intermediate Goals Logging Assistant Goals PT Logging Assistant Goals Time Frame: Mar 03, 2022 Roll Left & Right (QC): 6 Sit to Lying (QC): 4 (CGA) Lying-Sitting on Side/Bed(QC): 4 (CGA) Sit to Stand (QC): 4 (CGA) Chair/Cvj-om-Habry Xfer(QC): 4 (CGA) Toilet Transfer (QC): 4 (CGA) Car Transfer (QC): 4 (CGA) Does the Patient Walk: Yes Walk 10 feet (QC): 4 (CGA) Walk 50ft with 2 Turns (QC): 88 Walk 150 ft (QC): 88 Walking 10ft on Uneven Surface: 4 (CGA) 1 Step (curb) (QC): 88 4 Steps (QC): 88 12 Steps (QC): 88 Picking up an Object (QC): 4 (CGA) Wheel 50 feet with 2 turns (QC: 6 Wheel 150 feet: 6 PT Plan Treatment/Plan Treatment Plan: Continue Plan of Care Treatment Plan: Bed Mobility, Education, Functional Activity Lalit, Functional Strength, Group Therapy, Gait, Safety, Therapeutic Exercise, Transfers Treatment Duration: Mar 03, 2022 Frequency: At least 5 of 7 days/Wk (IRF) Estimated Hrs Per Day: 1.5 hours per day Patient and/or Family Agrees t: Yes Safety Risks/Education Patient Education: Transfer Techniques, Reviewed Precautions, Correct Positioning, Disease Process, Safety Issues Teaching Recipient: Patient Teaching Methods: Demonstration, Discussion Response to Teaching: Verbalize Understanding, Return Demonstration, Reinforcement Needed Time/GCodes Time In: 845 Time Out: 930 Total Billed Treatment Time: 45 Total Billed Treatment 1,EX25m,FA20m (OT co Rx 30m) for TRF skills and family education/training KIKE DUARTE TESTER/LIFT TRUCKER Feb 17, 2022 09:37
[2022-02-17] MEDS: PANTOPRAZOLE 40 MG (PROTONIX) TAB PO SCH (10:04)
[2022-02-17] MEDS: CLOPIDOGREL 75 MG (PLAVIX) TABLET PO SCH (10:04)
--- NOTE | 2022-02-17 10:06 | Occupational Ther Daily Note ---
OT Current Status-Daily Note Subjective Pt seated in recliner, working with PT upon OT arrival, pt agreeable to PT/OT cotreat. Mental Status/Objective Patient Orientation: Person, Place, Situation ADL-Treatment Therapy Code Descriptions/Definitions Functional [place] Measure: 0=Not Assessed/NA 4=Minimal Assistance 1=Total Assistance 5=Supervision or Setup 2=Maximal Assistance 6=Modified [place] 3=Moderate Assistance 7=Complete IndependenceSCALE: Activities may be completed with or without assistive devices. 5-Ikowfswwog-fzlgksw completes the activity by him/herself with no assistance from a helper. 5-Set-up or Clean-up Assistance-helper sets up or cleans up; patient completes activity. [place] assists only prior to or following the activity. 4-Supervision or Touching Assistance-helper provides verbal cues and/or touchi ng/steadying and/or contact guard assistance as patient completes activity. Assistance may be provided throughout the activity or intermittently. 3-Partial/Moderate Assistance-helper does LESS THAN HALF the effort. [place] lifts, holds or supports trunk or limbs, but provides less than half the effort. 2-Substantial/Maximal Assistance-helper does MORE THAN HALF the effort. [place] lifts or holds trunk or limbs and provides more than half the effort. 3-Bsoqxlaxe-vhanjh does ALL the effort. Patient does none of the effort to complete the activity. Or, the assistance of 2 or more helpers is required for the patient to complete the activity. If activity was not attempted, code reason: 7-Patient Refused. 9-Not Applicable-not attempted and the patient did not perform the activity before the current illness, exacerbation or injury. 10-Not Attempted due to Environmental Limitations-(lack of equipment, weather restraints, etc.). 88-Not Attempted due to Medical Conditions or Safety Concerns. Shower/Bathe Self (QC): 5 (Set up at bed level per pt and report) Upper Body Dressing (QC): 5 (set up at bed level per pt and report) Lower Body Dressing (QC): 3 (Min A with pant hike over hips per pt and report) Other Treatment OT/PT cotreat due to skill of 2 clinicians required which a director of rehabilitative services could not perform in order to coordinate UE/LEs, decrease fall risk, and due to pt's limitations in strength, activity tolerance, transfers and mobility. OT focused on UE placement and cues for sequencing and safety, PT focused on LE placement, gross overall movement, transfers/mobility. Pt completed preparatory exercises for mobility/transfers, education on donning stump sock and SPTs. End of cotreat. He transferred from recliner to w/c with Min A from , CGA from OT, then wheeled to therapy gym to participate in exercises and functional activities focused on increasing ROM in bilateral shoulders and increasing overall BUE strength and endurance. He completed 7minutes of controlled alternating shoulder flexion while seated at the tiffanie, and then two rounds seated at the ring arc (12 rings per hand), RBs PRN. Pt performed w/c mobility throughout common area and hallways on 2nd floor before returning to room. Pt transferred from w/c to bed, min A x2 ( and OT) and SBA for EOB to supine. Post tx, pt left in bed with call light in reach and all needs met. Education OT Patient Education: Correct positioning, Energy conservation, Exercise program, Instructions to caregiver, Modified ADL techniques, Progress toward Go al/Update tx plan, Purpose of tx/functional activities, Rehab process, Safety issues, Transfer techniques, W/C management Teaching Recipient: Patient, Significant Other Teaching Methods: Discussion Response to Teaching: Verbalize Understanding OT Short Term Goals Short Term Goals Time Frame: Feb 24, 2022 Shower/bathe self: 3 Lower body dressin OT Group Home Goals Group Home Goals Time Frame: Mar 10, 2022 Eating (QC): 6 Oral Hygiene (QC): 6 Toileting Hygiene (QC): 6 Shower/Bathe Self (QC): 4 Upper Body Dressing (QC): 4 Lower Body Dressing (QC): 3 On/Off Footwear (QC): 3 Additional Goals: 1-Demonstrate ADL Tasks, 2-Verbalize Understanding, 3- ImproveStrength/Lalit 1=Demonstrate adherence to instructed precautions during ADL tasks. 2=Patient will verbalize/demonstrate understanding of assistive devices/modifications for ADL. 3=Patient will improve strength/tolerance for activity to enable patient to perform ADL's. OT Education/Plan Problem List/Assessment Assessment: Decreased Activ Tolerance, Decreased UE Strength, Impaired Funct Balance, Impaired I ADL's, Impaired Self-Care Skills, Restricted Funct UE ROM Discharge Recommendations Plan/Recommendations: Continue POC Treatment Plan/Plan of Care Patient would benefit from OT for education, treatment and training to promote independence in ADL's, mobility, safety and/or upper extremity function for ADL's. Plan of Care: ADL Retraining, Functional Mobility, Group Exercise/Act as Ind, UE Funct Exercise/Act, UE Neuromus Re-Ed/Coord, W/C Management Training Treatment Duration: Mar 10, 2022 Frequency: At least 5 of 7 days/Wk (IRF) Estimated Hrs Per Day: 1.5 hours per day Agreement: Yes Rehab Potential: Fair Time/GCodes Start Time: 09:00 Stop Time: 10:00 Total Time Billed (hr/min): 60 Billed Treatment Time [id number]: OT/PT cotreat [id number]: OT tx 1, Ex 3 (40'), FA (20') OCTAVIA ORLANDO OT Feb 17, 2022 10:06
[2022-02-17] MEDS ORDERED: SIMV20TA26 PO (12:41)
[2022-02-17] MEDS ORDERED: DOCU100C37 PO (12:42)
--- NOTE | 2022-02-17 13:46 | Occupational Ther Daily Note ---
OT Current Status-Daily Note Subjective Pt sitting EOB, resting head on tray table upon OT arrival, agreeable to tx. Mental Status/Objective Patient Orientation: Person, Place, Situation ADL-Treatment Therapy Code Descriptions/Definitions Functional [place] Measure: 0=Not Assessed/NA 4=Minimal Assistance 1=Total Assistance 5=Supervision or Setup 2=Maximal Assistance 6=Modified [place] 3=Moderate Assistance 7=Complete IndependenceSCALE: Activities may be completed with or without assistive devices. 4-Glymygbgcu-ubrdnjf completes the activity by him/herself with no assistance from a helper. 5-Set-up or Clean-up Assistance-helper sets up or cleans up; patient completes activity. [place] assists only prior to or following the activity. 4-Supervision or Touching Assistance-helper provides verbal cues and/or touching/steadying and/or contact guard assistance as patient completes activity. Assistance may be provided throughout the activity or intermittently. 3-Partial/Moderate Assistance-helper does LESS THAN HALF the effort. [place] lifts, holds or supports trunk or limbs, but provides less than half the effort. 2-Substantial/Maximal Assistance-helper does MORE THAN HALF the effort. [place] lifts or holds trunk or limbs and provides more than half the effort. 7-Fwzkehucr-jrvtmh does ALL the effort. Patient does none of the effort to complete the activity. Or, the assistance of 2 or more helpers is required for the patient to complete the activity. If activity was not attempted, code reason: 7-Patient Refused. 9-Not Applicable-not attempted and the patient did not perform the activity before the current illness, exacerbation or injury. 10-Not Attempted due to Environmental Limitations-(lack of equipment, weather restraints, etc.). 88-Not Attempted due to Medical Conditions or Safety Concerns. Eating (QC): 5 (Assistance opening some containers per pt) Other Treatment Pt remained seated EOB, unsupported, throughout tx. Pt participated in nuts and bolts activity with the goal of increasing bilateral shoulder ROM, fine motor coordination, and BUE activity tolerance. He completed the whole board but required physical assistance with L elbow placement with nuts and bolts at top of board and he rotated the board to reach nuts and bolts furthest away from him (d/t limited bilateral shoulder ROM). Pt was educated on the importance of increasing ROM prior to extensive strengthening and the importance of using BUE to complete tasks to prevent further restrictions from non-use. Pt understood and verbalized agreement. Post tx, pt left seated EOB with tray table in front, call light within reach and all needs met. Education OT Patient Education: Correct positioning, Energy conservation, Exercise program, Modified ADL techniques, Progress toward Goal/Update tx plan, Purpose of tx/functional activities, Rehab process Teaching Recipient: Patient Teaching Methods: Discussion Response to Teaching: Verbalize Understanding OT Short Term Goals Short Term Goals Time Frame: Feb 24, 2022 Shower/bathe self: 3 Lower body dressin OT Repairer Finished Metal Goals Repairer Finished Metal Goals Time Frame: Mar 10, 2022 Eating (QC): 6 Oral Hygiene (QC): 6 Toileting Hygiene (QC): 6 Shower/Bathe Self (QC): 4 Upper Body Dressing (QC): 4 Lower Body Dressing (QC): 3 On/Off Footwear (QC): 3 Additional Goals: 1-Demonstrate ADL Tasks, 2-Verbalize Understanding, 3- ImproveStrength/Lalit 1=Demonstrate adherence to instructed precautions during ADL tasks. 2=Patient will verbalize/demonstrate understanding of assistive devices/modifications for ADL. 3=Patient will improve strength/tolerance for activity to enable patient to perform ADL's. OT Education/Plan Problem List/Assessment Assessment: Decreased Activ Tolerance, Decreased UE Strength, Impaired Funct Balance, Impaired I ADL's, Impaired Self-Care Skills, Restricted Funct UE ROM Discharge Recommendations Plan/Recommendations: Continue POC Treatment Plan/Plan of Care Patient would benefit from OT for education, treatment and training to promote independence in ADL's, mobility, safety and/or upper extremity function for ADL's. Plan of Care: ADL Retraining, Functional Mobility, Group Exercise/Act as Ind, UE Funct Exercise/Act, UE Neuromus Re-Ed/Coord, W/C Management Training Treatment Duration: Mar 10, 2022 Frequency: At least 5 of 7 days/Wk (IRF) Estimated Hrs Per Day: 1.5 hours per day Agreement: Yes Rehab Potential: Fair Time/GCodes Start Time: 13:00 Stop Time: 13:30 Total Time Billed (hr/min): 30 Billed Treatment Time 1, FA 2 (30') OCTAVIA ORLANDO OT Feb 17, 2022 13:46
--- NOTE | 2022-02-17 14:16 | Physical Therapy Daily Note ---
PT Daily Note-Current Subjective Patient is very agreeable to participate with PT. Mental Status Patient Orientation: Normal For Age Transfers SCALE: Activities may be completed with or without assistive devices. 7-Jvonojrsyx-islzodl completes the activity by him/herself with no assistance from a helper. 5-Set-up or Clean-up Assistance-helper sets up or cleans up; patient completes activity. [place] assists only prior to or following the activity. 4-Supervision or Touching Assistance-helper provides verbal cues and/or touching/steadying and/or contact guard assistance as patient completes activity. Assistance may be provided throughout the activity or intermittently. 3-Partial/Moderate Assistance-helper does LESS THAN HALF the effort. [place] lifts, holds or supports trunk or limbs, but provides less than half the effort. 2-Substantial/Maximal Assistance-helper does MORE THAN HALF the effort. [place] lifts or holds trunk or limbs and provides more than half the effort. 6-Fcnmtrsve-ukbndz does ALL the effort. Patient does none of the effort to complete the activity. Or, the assistance of 2 or more helpers is required for the patient to complete the activity. If activity was not attempted, code reason: 7-Patient Refused. 9-Not Applicable-not attempted and the patient did not perform the activity before the current illness, exacerbation or injury. 10-Not Attempted due to Environmental Limitations-(lack of equipment, weather restraints, etc.). 88-Not Attempted due to Medical Conditions or Safety Concerns. Sit to Stand (QC): 3 (x 5 sets in // bars standing x 1.5 min each) Chair/Sfa-fm-Nfolg Xfer(QC): 3 Wheelchair Training Does the Pt Use a Wheelchair?: Yes Wheel 50 ft with 2 turns (QC): 4 Wheel 150 ft (QC): 4 Type of Wheelchair: Manual 200' x 4 SBA with VC's for hand placement to propel Exercises Seated Therapy Exercises: Sit to stand (x 5 sets), Long arc quads (20 reps) Assessment Patient requires recovery periods due to fatigue. Patient improving with gross motor skill. Noted increase in assistance this p.m. due to fatigue. PT Short Term Goals Short Term Goals Time Frame: Feb 17, 2022 Roll Left & Right: 6 Sit to lyin (Batsheva) Lying to sitting on side of be: 3 (Batsheva) Sit to stand: 3 (Batsheva) Chair/jya-hm-merkw transfer: 3 Walk 10 feet: 3 (Batsheva) PT Bottle Capper Goals Bottle Capper Goals PT Fdc Goals Time Frame: Mar 03, 2022 Roll Left & Right (QC): 6 Sit to Lying (QC): 4 (CGA) Lying-Sitting on Side/Bed(QC): 4 (CGA) Sit to Stand (QC): 4 (CGA) Chair/Zfw-yh-Uwhzp Xfer(QC): 4 (CGA) Toilet Transfer (QC): 4 (CGA) Car Transfer (QC): 4 (CGA) Does the Patient Walk: Yes Walk 10 feet (QC): 4 (CGA) Walk 50ft with 2 Turns (QC): 88 Walk 150 ft (QC): 88 Walking 10ft on Uneven Surface: 4 (CGA) 1 Step (curb) (QC): 88 4 Steps (QC): 88 12 Steps (QC): 88 Picking up an Object (QC): 4 (CGA) Wheel 50 feet with 2 turns (QC: 6 Wheel 150 feet: 6 PT Plan Treatment/Plan Treatment Plan: Continue Plan of Care Treatment Plan: Bed Mobility, Education, Functional Activity Lalit, Functional Strength, Group Therapy, Gait, Safety, Therapeutic Exercise, Transfers Treatment Duration: Mar 03, 2022 Frequency: At least 5 of 7 days/Wk (IRF) Estimated Hrs Per Day: 1.5 hours per day Patient and/or Family Agrees t: Yes Time/GCodes Time In: 1330 Time Out: 1415 Total Billed Treatment Time: 45 Total Billed Treatment 1 visit [facility] x 2 27 min EX 18 min DWIGHT ANTONIO PT Feb 17, 2022 14:16
[2022-02-17] MEDS: ACETAMINOPHEN 325 MG TABLET PO PRN (18:35)
[2022-02-17 19:44] VITALS: BP 162/68
[2022-02-17] MEDS: MELATONIN 3 MG TABLET PO PRN (21:25)
--- NOTE | 2022-02-18 05:56 | PM&R Progress Note ---
Subjective HPI/CC On Admission Date Seen by Provider: Feb 18, 2022 Subjective/Events-last exam 02/18/2022: Pt doing pretty well Is more comfortable sitting on the side of the bed leaned over on a pillow and his leg doesn't hurt as much Blood sugars are much improved with the Amaryl 1mg and Metformin 500mg BID 02/17/2022: Pt is doing a lot better Loose bowel movement noted Gabapentin 200 mg TID has given much improvement in pain No other falls Checked meds and labs 02/16/2022: Pt is doing well Dr. Perez thought the leg looked better today and didn't require surgery Will take Melatonin tonight to help him sleep Bowels moved yesterday Sugars are elevated so will start Amaryl 1 mg to the Metformin 500 BID started yesterday 02/15/2022: Pt is doing really well Bowels moved two days ago Dr. Wade did treat his toenails Dr. Guido wants a general surgeon to debride it or the pt can go back over to Dr. Guido at [facility] to have that done with his leg 02/14/2022: Patient doing a lot better Complaining of pain but declines any pain medication Sugar is much improved after hypoglycemia Bowels are moving now at bedside 02/13/2022: Patient doing a lot better Blood sugars 164, 113 Declines to take morphine for addiction potential really helps the patient 02/12/2022: Patient doing pretty well at bedside Blood sugar is 99 after being very low Suppository produced a small bowel movement so we will initiate more laxatives or Holding metoprolol due to low blood pressure Holding losartan as of yesterday due to low blood pressure Mag citrate is being used for constipation today 02/11/2022: Patient doing really well Blood sugars reviewed and holding metformin and oral hypoglycemic agent due to hypoglycemia Pain is controlled Laxatives given Checked meds and labs Review of Systems General: Fatigue, Malaise Objective Exam Vital Signs Vital Signs Date Time Temp Pulse Resp B/P (MAP) Pulse Ox O2 Delivery O2 Flow Rate FiO2 02/18/22 09:00 Room Air 02/18/22 07:30 36.0 64 18 134/75 (94) 98 Capillary Refill : General Appearance: No Apparent Distress, WD/WN, Chronically ill HEENT: PERRL/EOMI, Normal ENT Inspection, Pharynx Normal Neck: Full Range of Motion, Normal Inspection, Non Tender, Supple, Carotid Bruit Respiratory: Chest Non Tender, Lungs Clear, Normal Breath Sounds, No Accessory Muscle Use, No Respiratory Distress Cardiovascular: No Edema, No Gallop, No JVD, No Murmur, Normal Peripheral Pulses, Irregularly Irregular Gastrointestinal: Normal Bowel Sounds, No Organomegaly, No Pulsatile Mass, Non Tender, Soft Back: Normal Inspection, No CVA Tenderness, No Vertebral Tenderness Extremity: Normal Capillary Refill, Normal Inspection, Normal Range of Motion, Non Tender, No Calf Tenderness, No Pedal Edema Neurologic/Psychiatric: Alert, Oriented x3, Normal Mood/Affect, 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 FIM Transfers Therapy Code Descriptions/Definitions Functional [place] Measure: 0=Not Assessed/NA 4=Minimal Assistance 1=Total Assistance 5=Supervision or Setup 2=Maximal Assistance 6=Modified [place] 3=Moderate Assistance 7=Complete IndependenceSCALE: Activities may be completed with or without assistive devices. 9-Zpfpajvlbj-lovfjdv completes the activity by him/herself with no assistance from a helper. 5-Set-up or Clean-up Assistance-helper sets up or cleans up; patient completes activity. [place] assists only prior to or following the activity. 4-Supervision or Touching Assistance-helper provides verbal cues and/or touch ing/steadying and/or contact guard assistance as patient completes activity. Assistance may be provided throughout the activity or intermittently. 3-Partial/Moderate Assistance-helper does LESS THAN HALF the effort. [place] lifts, holds or supports trunk or limbs, but provides less than half the effort. 2-Substantial/Maximal Assistance-helper does MORE THAN HALF the effort. [place] lifts or holds trunk or limbs and provides more than half the effort. 2-Mxpwjvoex-medcoq does ALL the effort. Patient does none of the effort to complete the activity. Or, the assistance of 2 or more helpers is required for the patient to complete the activity. If activity was not attempted, code reason: 7-Patient Refused. 9-Not Applicable-not attempted and the patient did not perform the activity before the current illness, exacerbation or injury. 10-Not Attempted due to Environmental Limitations-(lack of equipment, weather restraints, etc.). 88-Not Attempted due to Medical Conditions or Safety Concerns. Roll Left to Right (QC): 6 Sit to Lying (QC): 6 Sit to Stand (QC): 3 (x 5 sets in // bars standing x 1.5 min each) Chair/Dpt-ov-Rjdtt Xfer(QC): 3 Car Transfer (QC): 3 Gait Training Does the Patient Walk?: No and Walking Goal IS indicated Walk 10 feet (QC): 88 Walk 50 ft with 2 Turns(QC): 88 Walk 150 ft (QC): 88 Walking 10ft/uneven surface-QC: 88 Gait Assistive Device: Parallel Bars Wheelchair Training Does the Pt Use a Wheelchair?: Yes Distance: 150'x2 Wheel 50 ft with 2 turns (QC): 4 Wheel 150 ft (QC): 4 Type of Wheelchair: Manual Stair Training 1 Step (curb) (QC): 88 4 Steps (QC): 88 12 Steps (QC): 88 Balance Picking up an Object (QC): 88 ADL-Treatment Eating (QC): 5 (Assistance opening some containers per pt) Oral Hygiene (QC): 6 Shower/Bathe Self (QC): 5 (Set up at bed level per pt and report) Upper Body Dressing (QC): 5 (set up at bed level per pt and report) Lower Body Dressing (QC): 3 (Min A with pant hike over hips per pt and report) On/Off Footwear (QC): 3 (Min A with velcro straps per pt and report. Pt able to put shoe on with shoe funnel.) Toileting Hygiene (QC): 6 Toilet Transfer (QC): 3 Assessment/Plan Assessment and Plan Assess & Plan/Chief Complaint Assessment: LBKA 02/07/22 Severe PVD PAF OAC HTN HLP DM Hypothyroidism Hypoglycemia holding metformin and glimepiride Constipation Plan: Home meds SSI PT OT Pain control BM treatment 02/11/2022: Hold diabetic meds due to hypoglycemia Pain control Bowel regimen 02/12/2022: BM regimen Monitor glucose 02/13/2022: Monitor sugar Hypoglycemia high risk 02/14/2022: Monitor closely Pain control Sugar monitoring 02/15/2022: Consult Dr Perez Restart Metformin 02/16/2022: Appreciate Dr Chris Quinn Amaryl 02/17/2022: Improved sugars Increase Gabapentin slowly 02/18/2022: Pain is improved Supportive care (1) Amputation of left lower extremity below knee XIOMARA DICKENS DO Feb 18, 2022 05:56
[2022-02-18] MEDS: inSUlin ASPART (NovoLOG) 1 UNIT/0.01 ML (CHARGE PER UNIT) SC SCH ×4 (06:10→20:56)
[2022-02-18] MEDS: GLIMEPIRIDE 1 MG (AMARYL) TAB PO SCH (06:19)
[2022-02-18] MEDS: metFORMIN 500 MG (GLUCOPHAGE) TAB PO SCH ×2 (06:19→18:00)
[2022-02-18] MEDS: LEVOTHYROXINE 100 MCG (LEVOTHROID) TAB PO SCH (06:19)
[2022-02-18 07:30] VITALS: BP 134/75
[2022-02-18] MEDS: FUROSEMIDE 40 MG (LASIX) TAB PO SCH (08:16)
[2022-02-18] MEDS: PANTOPRAZOLE 40 MG (PROTONIX) TAB PO SCH (08:16)
[2022-02-18] MEDS: CLOPIDOGREL 75 MG (PLAVIX) TABLET PO SCH (08:16)
[2022-02-18] MEDS: KCL 20 MEQ TAB (K-DUR) PO SCH ×3 (08:16→18:00)
[2022-02-18] MEDS: VITAMIN D3 25 MCG (1,000 UNITS) TABLET PO SCH (08:16)
[2022-02-18] MEDS: AMIODARONE 200 MG (CORDARONE) TAB PO SCH (08:16)
[2022-02-18] MEDS: APIXABAN 5 MG (ELIQUIS) TABLET PO SCH ×2 (08:16→20:57)
[2022-02-18] MEDS: GABAPENTIN 100 MG (NEURONTIN) CAP PO SCH ×3 (08:17→20:57)
[2022-02-18] MEDS: DOCUSATE SODIUM 100 MG (COLACE) CAP PO SCH ×2 (09:00→19:45)
[2022-02-18] MEDS: polyethylene glycoL POWDER 17 GM (MIRALAX) PACK PO SCH ×2 (09:00→19:45)
[2022-02-18] MEDS: SENNA W/DOCUSATE (SENOKOT S) TABLET PO SCH ×2 (09:00→19:45)
--- NOTE | 2022-02-18 11:15 | Progress Note - Surgery ---
Subjective Date Seen by a Provider: Feb 18, 2022 Time Seen by a Provider: 11:15 Subjective/Events-last exam Pain controlled. Feels leg is looking better. Doing PT exercises. Denies n/v fever sweats chills shortness of breath or chest pain at this time. Objective Exam Vital Signs Date Time Temp Pulse Resp B/P (MAP) Pulse Ox O2 Delivery O2 Flow Rate FiO2 02/18/22 07:30 36.0 64 18 134/75 (94) 98 Room Air 02/17/22 20:20 Room Air 02/17/22 19:44 36.6 75 20 162/68 (99) 97 Room Air Capillary Refill : General Appearance: No Apparent Distress, WD/WN, Chronically ill HEENT: PERRL/EOMI, Normal ENT Inspection Neck: Full Range of Motion, Normal Inspection, Non Tender, Supple Respiratory: Chest Non Tender, No Accessory Muscle Use, No Respiratory Distress Cardiovascular: No JVD, Irregularly Irregular Peripheral Pulses: 0 Dorsalis Pedis (R); 2+ Radial Pulses (R), 2+ Radial Pulses (L) Gastrointestinal: non tender, soft Extremity: Other (left bka, left variable degrees of wound ischemia to distal stump likely from compression) Neurologic/Psychiatric: Alert, Oriented x3, Normal Mood/Affect, preschool education director II-XII Norm as Tested, Abnormal Gait, Motor Weakness (left sided lower extremity BKA) Skin: Normal Color, Warm/Dry Lymphatic: No Adenopathy Results Lab Laboratory Tests 02/17/22 11:21: Glucometer 141H 02/17/22 15:38: Glucometer 150H 02/17/22 20:27: Glucometer 140H 02/18/22 06:06: Glucometer 87 02/18/22 10:59: Glucometer 104 Assessment/Plan Assessment/Plan Assessment/Plan s/p Left BKA Peripheral Vascular Disease Ischemia of Left limb Pain control Dressing changes daily. Dressing changed today. Currently possibility of ischemia that is superficial, and will heal from inside out. Patient does understand potential for aka. BEATRICE ABRBER DO Feb 18, 2022 11:15
--- NOTE | 2022-02-18 12:38 | Physical Therapy Daily Note ---
PT Daily Note-Current Subjective Pt reported (L) residual limb pain on arrival. Pain Numeric Pain Scale: 5-Moderate Pain Location: Left, Lower Location Body Site: Knee Pain Description: Ache, Dull Mental Status Patient Orientation: Person, Place, Time, Situation Transfers SCALE: Activities may be completed with or without assistive devices. 2-Bpixaqpwnn-jzkcxqw completes the activity by him/herself with no assistance from a helper. 5-Set-up or Clean-up Assistance-helper sets up or cleans up; patient completes activity. [place] assists only prior to or following the activity. 4-Supervision or Touching Assistance-helper provides verbal cues and/or touching/steadying and/or contact guard assistance as patient completes activity. Assistance may be provided throughout the activity or intermittently. 3-Partial/Moderate Assistance-helper does LESS THAN HALF the effort. [place] lifts, holds or supports trunk or limbs, but provides less than half the effort. 2-Substantial/Maximal Assistance-helper does MORE THAN HALF the effort. [place] lifts or holds trunk or limbs and provides more than half the effort. 6-Ipgkqcfwa-qbitpm does ALL the effort. Patient does none of the effort to complete the activity. Or, the assistance of 2 or more helpers is required for the patient to complete the activity. If activity was not attempted, code reason: 7-Patient Refused. 9-Not Applicable-not attempted and the patient did not perform the activity before the current illness, exacerbation or injury. 10-Not Attempted due to Environmental Limitations-(lack of equipment, weather restraints, etc.). 88-Not Attempted due to Medical Conditions or Safety Concerns. Sit to Stand (QC): 2 Chair/Gle-dp-Kyxmm Xfer(QC): 2 Gait Training Does the Patient Walk?: No and Walking Goal IS indicated Wheelchair Training Does the Pt Use a Wheelchair?: Yes Wheel 50 ft with 2 turns (QC): 4 Wheel 150 ft (QC): 4 Type of Wheelchair: Manual Exercises Seated Therapy Exercises: LE Protocol Seated Reps: 20 Standing: Mini squats, Sit to Stand Standing Reps: 20 NuStep Minutes: 6 NuStep Workload: 5 Assessment Current Status: Good Progress Pt notes (R) LE is too weak to hold him during transfers. Worked on partial squat with prolonged hold in partial flexion (3-5 second hold). Pt performed 5 reps for 4 sets. He was very fatigued when done. PT Short Term Goals Short Term Goals Time Frame: Feb 17, 2022 Roll Left & Right: 6 Sit to lyin (Batsheva) Lying to sitting on side of be: 3 (Batsheva) Sit to stand: 3 (Batsheva) Chair/rpt-io-qzmuj transfer: 3 Walk 10 feet: 3 (Batsheva) PT Care Home Goals Pulp Piler Goals PT Pulp Piler Goals Time Frame: Mar 03, 2022 Roll Left & Right (QC): 6 Sit to Lying (QC): 4 (CGA) Lying-Sitting on Side/Bed(QC): 4 (CGA) Sit to Stand (QC): 4 (CGA) Chair/Cum-gq-Cewjn Xfer(QC): 4 (CGA) Toilet Transfer (QC): 4 (CGA) Car Transfer (QC): 4 (CGA) Does the Patient Walk: Yes Walk 10 feet (QC): 4 (CGA) Walk 50ft with 2 Turns (QC): 88 Walk 150 ft (QC): 88 Walking 10ft on Uneven Surface: 4 (CGA) 1 Step (curb) (QC): 88 4 Steps (QC): 88 12 Steps (QC): 88 Picking up an Object (QC): 4 (CGA) Wheel 50 feet with 2 turns (QC: 6 Wheel 150 feet: 6 PT Plan Treatment/Plan Treatment Plan: Continue Plan of Care Treatment Plan: Bed Mobility, Education, Functional Activity Lalit, Functional Strength, Group Therapy, Gait, Safety, Therapeutic Exercise, Transfers Treatment Duration: Mar 03, 2022 Frequency: At least 5 of 7 days/Wk (IRF) Estimated Hrs Per Day: 1.5 hours per day Patient and/or Family Agrees t: Yes Time/GCodes Time In: 1050 Time Out: 1120 Total Billed Treatment Time: 30 Total Billed Treatment 1, ex x2 (30) DESTINY JAMES PT Feb 18, 2022 12:38
[2022-02-18 20:01] VITALS: BP 119/63
[2022-02-18] MEDS: MELATONIN 3 MG TABLET PO PRN (20:57)
--- NOTE | 2022-02-19 05:56 | PM&R Progress Note ---
Subjective HPI/CC On Admission Date Seen by Provider: Feb 19, 2022 Time Seen by Provider: 06:00 Subjective/Events-last exam 02/19/2022: Patient doing really well Blood sugars reviewed Pain is improved 02/18/2022: Pt doing pretty well Is more comfortable sitting on the side of the bed leaned over on a pillow and his leg doesn't hurt as much Blood sugars are much improved with the Amaryl 1mg and Metformin 500mg BID 02/17/2022: Pt is doing a lot better Loose bowel movement noted Gabapentin 200 mg TID has given much improvement in pain No other falls Checked meds and labs 02/16/2022: Pt is doing well Dr. Perez thought the leg looked better today and didn't require surgery Will take Melatonin tonight to help him sleep Bowels moved yesterday Sugars are elevated so will start Amaryl 1 mg to the Metformin 500 BID started yesterday 02/15/2022: Pt is doing really well Bowels moved two days ago Dr. Wade did treat his toenails Dr. Guido wants a general surgeon to debride it or the pt can go back over to Dr. Guido at [place] to have that done with his leg 02/14/2022: Patient doing a lot better Complaining of pain but declines any pain medication Sugar is much improved after hypoglycemia Bowels are moving now at bedside 02/13/2022: Patient doing a lot better Blood sugars 164, 113 Declines to take morphine for addiction potential really helps the patient 02/12/2022: Patient doing pretty well at bedside Blood sugar is 99 after being very low Suppository produced a small bowel movement so we will initiate more laxatives or Holding metoprolol due to low blood pressure Holding losartan as of yesterday due to low blood pressure Mag citrate is being used for constipation today 02/11/2022: Patient doing really well Blood sugars reviewed and holding metformin and oral hypoglycemic agent due to hypoglycemia Pain is controlled Laxatives given Checked meds and labs Review of Systems General: Fatigue, Malaise Musculoskeletal: leg pain Objective Exam Vital Signs Vital Signs Date Time Temp Pulse Resp B/P (MAP) Pulse Ox O2 Delivery O2 Flow Rate FiO2 02/19/22 09:00 Room Air 02/19/22 07:30 36.7 75 20 143/76 (98) 95 Capillary Refill : General Appearance: No Apparent Distress, WD/WN, Chronically ill HEENT: PERRL/EOMI, Normal ENT Inspection, Pharynx Normal Neck: Full Range of Motion, Normal Inspection, Non Tender, Supple, Carotid Bruit Respiratory: Chest Non Tender, Lungs Clear, Normal Breath Sounds, No Accessory Muscle Use, No Respiratory Distress Cardiovascular: No Edema, No Gallop, No JVD, No Murmur, Normal Peripheral Pulses, Irregularly Irregular Gastrointestinal: Normal Bowel Sounds, No Organomegaly, No Pulsatile Mass, Non Tender, Soft Back: Normal Inspection, No CVA Tenderness, No Vertebral Tenderness Extremity: Normal Capillary Refill, Normal Inspection, Normal Range of Motion, Non Tender, No Calf Tenderness, No Pedal Edema Neurologic/Psychiatric: Alert, Oriented x3, Normal Mood/Affect, cephalometric tracer II-XII Norm as Tested, Abnormal Gait, Motor Weakness (left sided lower extremity BKA) Skin: Normal Color, Warm/Dry Lymphatic: No Adenopathy Results/Procedures Lab Patient resulted labs reviewed. FIM Transfers Therapy Code Descriptions/Definitions Functional [place] Measure: 0=Not Assessed/NA 4=Minimal Assistance 1=Total Assistance 5=Supervision or Setup 2=Maximal Assistance 6=Modified [place] 3=Moderate Assistance 7=Complete IndependenceSCALE: Activities may be completed with or without assistive devices. 5-Dvxpwiazdw-uiqkadd completes the activity by him/herself with no assistance from a helper. 5-Set-up or Clean-up Assistance-helper sets up or cleans up; patient completes activity. [place] assists only prior to or following the activity. 4-Supervision or Touching Assistance-helper provides verbal cues and/or touching/steadying and/or contact guard assistance as patient completes activity. Assistance may be provided throughout the activity or intermittently. 3-Partial/Moderate Assistance-helper does LESS THAN HALF the effort. [place] lifts, holds or supports trunk or limbs, but provides less than half the effort. 2-Substantial/Maximal Assistance-helper does MORE THAN HALF the effort. [place] lifts or holds trunk or limbs and provides more than half the effort. 5-Vfymqmxyv-xlveim does ALL the effort. Patient does none of the effort to complete the activity. Or, the assistance of 2 or more helpers is required for the patient to complete the activity. If activity was not attempted, code reason: 7-Patient Refused. 9-Not Applicable-not attempted and the patient did not perform the activity before the current illness, exacerbation or injury. 10-Not Attempted due to Environmental Limitations-(lack of equipment, weather restraints, etc.). 88-Not Attempted due to Medical Conditions or Safety Concerns. Roll Left to Right (QC): 6 Sit to Lying (QC): 6 Sit to Stand (QC): 2 Chair/Nqw-mh-Gtnfj Xfer(QC): 2 Car Transfer (QC): 3 Gait Training Does the Patient Walk?: No and Walking Goal IS indicated Walk 10 feet (QC): 88 Walk 50 ft with 2 Turns(QC): 88 Walk 150 ft (QC): 88 Walking 10ft/uneven surface-QC: 88 Gait Assistive Device: Parallel Bars Wheelchair Training Does the Pt Use a Wheelchair?: Yes Distance: 150'x2 Wheel 50 ft with 2 turns (QC): 4 Wheel 150 ft (QC): 4 Type of Wheelchair: Manual Stair Training 1 Step (curb) (QC): 88 4 Steps (QC): 88 12 Steps (QC): 88 Balance Picking up an Object (QC): 88 ADL-Treatment Eating (QC): 5 (Assistance opening some containers per pt) Oral Hygiene (QC): 6 Shower/Bathe Self (QC): 5 (Set up at bed level per pt and report) Upper Body Dressing (QC): 5 (set up at bed level per pt and report) Lower Body Dressing (QC): 3 (Min A with pant hike over hips per pt and report) On/Off Footwear (QC): 3 (Min A with velcro straps per pt and report. Pt able to put shoe on with shoe funnel.) Toileting Hygiene (QC): 6 Toilet Transfer (QC): 3 Assessment/Plan Assessment and Plan Assess & Plan/Chief Complaint Assessment: LBKA 02/07/22 Severe PVD PAF OAC HTN HLP DM Hypothyroidism Hypoglycemia holding metformin and glimepiride Constipation Plan: Home meds SSI PT OT Pain control BM treatment 02/11/2022: Hold diabetic meds due to hypoglycemia Pain control Bowel regimen 02/12/2022: BM regimen Monitor glucose 02/13/2022: Monitor sugar Hypoglycemia high risk 02/14/2022: Monitor closely Pain control Sugar monitoring 02/15/2022: Consult Dr Perez Restart Metformin 02/16/2022: Appreciate Dr Perez Add Amaryl 02/17/2022: Improved sugars Increase Gabapentin slowly 02/18/2022: Pain is improved Supportive care 02/19/2022: Pain is improved Blood sugar improved (1) Amputation of left lower extremity below knee XIOMARA DICKENS DO Feb 19, 2022 05:55
[2022-02-19] MEDS: inSUlin ASPART (NovoLOG) 1 UNIT/0.01 ML (CHARGE PER UNIT) SC SCH ×4 (06:08→20:55)
[2022-02-19] MEDS: metFORMIN 500 MG (GLUCOPHAGE) TAB PO SCH ×2 (06:12→16:58)
[2022-02-19] MEDS: LEVOTHYROXINE 100 MCG (LEVOTHROID) TAB PO SCH (06:12)
[2022-02-19] MEDS: GLIMEPIRIDE 1 MG (AMARYL) TAB PO SCH (06:12)
[2022-02-19 07:30] VITALS: BP 143/76
[2022-02-19] MEDS: CLOPIDOGREL 75 MG (PLAVIX) TABLET PO SCH (08:41)
[2022-02-19] MEDS: KCL 20 MEQ TAB (K-DUR) PO SCH (08:41)
[2022-02-19] MEDS: AMIODARONE 200 MG (CORDARONE) TAB PO SCH (08:41)
[2022-02-19] MEDS: APIXABAN 5 MG (ELIQUIS) TABLET PO SCH ×2 (08:41→20:57)
[2022-02-19] MEDS: PANTOPRAZOLE 40 MG (PROTONIX) TAB PO SCH (08:41)
[2022-02-19] MEDS: VITAMIN D3 25 MCG (1,000 UNITS) TABLET PO SCH (08:41)
[2022-02-19] MEDS: FUROSEMIDE 40 MG (LASIX) TAB PO SCH (08:41)
[2022-02-19] MEDS: GABAPENTIN 100 MG (NEURONTIN) CAP PO SCH ×3 (08:41→20:58)
[2022-02-19] MEDS: polyethylene glycoL POWDER 17 GM (MIRALAX) PACK PO SCH ×2 (09:34→19:44)
[2022-02-19] MEDS: SENNA W/DOCUSATE (SENOKOT S) TABLET PO SCH ×2 (09:34→19:44)
[2022-02-19] MEDS: DOCUSATE SODIUM 100 MG (COLACE) CAP PO SCH ×2 (09:34→19:44)
--- NOTE | 2022-02-19 12:47 | Progress Note - Surgery ---
Subjective Date Seen by a Provider: Feb 19, 2022 Time Seen by a Provider: 12:02 Subjective/Events-last exam Patient slight discomfort left leg. Pain fairly controlled. Working on range of motion. Sitting in chair. No other complaints at this time. Denies n/v fever sweats chills shortness of breath or chest pain. Objective Exam Vital Signs Date Time Temp Pulse Resp B/P (MAP) Pulse Ox O2 Delivery O2 Flow Rate FiO2 02/19/22 09:00 Room Air 02/19/22 07:30 36.7 75 20 143/76 (98) 95 Room Air 02/18/22 20:20 Room Air 02/18/22 20:01 36.6 64 20 119/63 (81) 98 Room Air Capillary Refill : General Appearance: No Apparent Distress, WD/WN, Chronically ill HEENT: PERRL/EOMI, Normal ENT Inspection, Pharynx Normal Neck: Full Range of Motion, Normal Inspection, Non Tender, Supple, Carotid Bruit Respiratory: Chest Non Tender, No Accessory Muscle Use, No Respiratory Distress Cardiovascular: No JVD, Irregularly Irregular Peripheral Pulses: 0 Dorsalis Pedis (R); 2+ Radial Pulses (R), 2+ Radial Pulses (L) Gastrointestinal: non tender, soft Extremity: Normal Capillary Refill, No Pedal Edema, Other (left bka with skin ischemia variable thickness, multiple areas of the stump left side.) Neurologic/Psychiatric: Alert, Oriented x3, Normal 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 Dressing changed today tolerated without difficulty Currently possibility of ischemia that is superficial, and will heal from inside out. Patient does understand potential for aka. BEATRICE BAREBR DO Feb 19, 2022 12:47
[2022-02-19 19:44] VITALS: BP 143/75
[2022-02-19] MEDS: MELATONIN 3 MG TABLET PO PRN (20:57)
[2022-02-20] MEDS: inSUlin ASPART (NovoLOG) 1 UNIT/0.01 ML (CHARGE PER UNIT) SC SCH ×4 (05:39→20:33)
--- NOTE | 2022-02-20 06:02 | PM&R Progress Note ---
Subjective HPI/CC On Admission Date Seen by Provider: Feb 20, 2022 Time Seen by Provider: 06:00 Subjective/Events-last exam 02/20/2022: Patient doing really well Blood sugars are perfect Pain is an issue 02/19/2022: Patient doing really well Blood sugars reviewed Pain is improved 02/18/2022: Pt doing pretty well Is more comfortable sitting on the side of the bed leaned over on a pillow and his leg doesn't hurt as much Blood sugars are much improved with the Amaryl 1mg and Metformin 500mg BID 02/17/2022: Pt is doing a lot better Loose bowel movement noted Gabapentin 200 mg TID has given much improvement in pain No other falls Checked meds and labs 02/16/2022: Pt is doing well Dr. Perez thought the leg looked better today and didn't require surgery Will take Melatonin tonight to help him sleep Bowels moved yesterday Sugars are elevated so will start Amaryl 1 mg to the Metformin 500 BID started yesterday 02/15/2022: Pt is doing really well Bowels moved two days ago Dr. Wade did treat his toenails Dr. Guido wants a general surgeon to debride it or the pt can go back over to Dr. Guido at [place] to have that done with his leg 02/14/2022: Patient doing a lot better Complaining of pain but declines any pain medication Sugar is much improved after hypoglycemia Bowels are moving now at bedside 02/13/2022: Patient doing a lot better Blood sugars 164, 113 Declines to take morphine for addiction potential really helps the patient 02/12/2022: Patient doing pretty well at bedside Blood sugar is 99 after being very low Suppository produced a small bowel movement so we will initiate more laxatives or Holding metoprolol due to low blood pressure Holding losartan as of yesterday due to low blood pressure Mag citrate is being used for constipation today 02/11/2022: Patient doing really well Blood sugars reviewed and holding metformin and oral hypoglycemic agent due to hypoglycemia Pain is controlled Laxatives given Checked meds and labs Review of Systems Musculoskeletal: leg pain Objective Exam Vital Signs Vital Signs Date Time Temp Pulse Resp B/P (MAP) Pulse Ox O2 Delivery O2 Flow Rate FiO2 02/20/22 09:04 Room Air 02/20/22 07:56 36.6 72 14 136/57 (83) 91 Capillary Refill : General Appearance: No Apparent Distress, WD/WN, Chronically ill HEENT: PERRL/EOMI, Normal ENT Inspection, Pharynx Normal Neck: Full Range of Motion, Normal Inspection, Non Tender, Supple, Carotid Bruit Respiratory: Chest Non Tender, Lungs Clear, Normal Breath Sounds, No Accessory Muscle Use, No Respiratory Distress Cardiovascular: No Edema, No Gallop, No JVD, No Murmur, Normal Peripheral Pulses, Irregularly Irregular Gastrointestinal: Normal Bowel Sounds, No Organomegaly, No Pulsatile Mass, Non Tender, Soft Back: Normal Inspection, No CVA Tenderness, No Vertebral Tenderness Extremity: Normal Capillary Refill, Normal Inspection, Normal Range of Motion, Non Tender, No Calf Tenderness, No Pedal Edema Neurologic/Psychiatric: Alert, Oriented x3, Normal Mood/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 FIM Transfers Therapy Code Descriptions/Definitions Functional [place] Measure: 0=Not Assessed/NA 4=Minimal Assistance 1=Total Assistance 5=Supervision or Setup 2=Maximal Assistance 6=Modified [place] 3=Moderate Assistance 7=Complete IndependenceSCALE: Activities may be completed with or without assistive devices. 0-Yhmzbvigrd-kwapyho completes the activity by him/herself with no assistance from a helper. 5-Set-up or Clean-up Assistance-helper sets up or cleans up; patient completes activity. [place] assists only prior to or following the activity. 4-Supervision or Touching Assistance-helper provides verbal cues and/or touching/steadying and/or contact guard assistance as patient completes activity. Assistance may be provided throughout the activity or intermittently. 3-Partial/Moderate Assistance-helper does LESS THAN HALF the effort. [place] lifts, holds or supports trunk or limbs, but provides less than half the effort. 2-Substantial/Maximal Assistance-helper does MORE THAN HALF the effort. [place] lifts or holds trunk or limbs and provides more than half the effort. 4-[place]-igtmos does ALL the effort. Patient does none of the effort to complete the activity. Or, the assistance of 2 or more helpers is required for the patient to complete the activity. If activity was not attempted, code reason: 7-Patient Refused. 9-Not Applicable-not attempted and the patient did not perform the activity before the current illness, exacerbation or injury. 10-Not Attempted due to Environmental Limitations-(lack of equipment, weather restraints, etc.). 88-Not Attempted due to Medical Conditions or Safety Concerns. Roll Left to Right (QC): 6 Sit to Lying (QC): 6 Sit to Stand (QC): 2 Chair/Gwi-mm-Ajrsh Xfer(QC): 2 Car Transfer (QC): 3 Gait Training Does the Patient Walk?: No and Walking Goal IS indicated Walk 10 feet (QC): 88 Walk 50 ft with 2 Turns(QC): 88 Walk 150 ft (QC): 88 Walking 10ft/uneven surface-QC: 88 Gait Assistive Device: Parallel Bars Wheelchair Training Does the Pt Use a Wheelchair?: Yes Distance: 150'x2 Wheel 50 ft with 2 turns (QC): 4 Wheel 150 ft (QC): 4 Type of Wheelchair: Manual Stair Training 1 Step (curb) (QC): 88 4 Steps (QC): 88 12 Steps (QC): 88 Balance Picking up an Object (QC): 88 ADL-Treatment Eating (QC): 5 (Assistance opening some containers per pt) Oral Hygiene (QC): 6 Shower/Bathe Self (QC): 5 (Set up at bed level per pt and report) Upper Body Dressing (QC): 5 (set up at bed level per pt and report) Lower Body Dressing (QC): 3 (Min A with pant hike over hips per pt and report) On/Off Footwear (QC): 3 (Min A with velcro straps per pt and report. Pt able to put shoe on with shoe funnel.) Toileting Hygiene (QC): 6 Toilet Transfer (QC): 3 Assessment/Plan Assessment and Plan Assess & Plan/Chief Complaint Assessment: LBKA 02/07/22 Severe PVD PAF OAC HTN HLP DM Hypothyroidism Hypoglycemia holding metformin and glimepiride Constipation Plan: Home meds SSI PT OT Pain control BM treatment 02/11/2022: Hold diabetic meds due to hypoglycemia Pain control Bowel regimen 02/12/2022: BM regimen Monitor glucose 02/13/2022: Monitor sugar Hypoglycemia high risk 02/14/2022: Monitor closely Pain control Sugar monitoring 02/15/2022: Consult Dr Perez Restart Metformin 02/16/2022: Appreciate Dr Perez Add Amaryl 02/17/2022: Improved sugars Increase Gabapentin slowly 02/18/2022: Pain is improved Supportive care 02/19/2022: Pain is improved Blood sugar improved 02/20/2022: Blood sugars perfect (1) Amputation of left lower extremity below knee XIOMARA DICKENS DO Feb 20, 2022 06:02
[2022-02-20] MEDS: GLIMEPIRIDE 1 MG (AMARYL) TAB PO SCH (06:07)
[2022-02-20] MEDS: metFORMIN 500 MG (GLUCOPHAGE) TAB PO SCH ×2 (06:07→18:03)
[2022-02-20] MEDS: LEVOTHYROXINE 100 MCG (LEVOTHROID) TAB PO SCH (06:07)
[2022-02-20 07:56] VITALS: BP 136/57
[2022-02-20] MEDS: VITAMIN D3 25 MCG (1,000 UNITS) TABLET PO SCH (08:49)
[2022-02-20] MEDS: PANTOPRAZOLE 40 MG (PROTONIX) TAB PO SCH (08:49)
[2022-02-20] MEDS: FUROSEMIDE 40 MG (LASIX) TAB PO SCH (08:49)
[2022-02-20] MEDS: GABAPENTIN 100 MG (NEURONTIN) CAP PO SCH ×3 (08:49→21:29)
[2022-02-20] MEDS: APIXABAN 5 MG (ELIQUIS) TABLET PO SCH ×2 (08:49→21:29)
[2022-02-20] MEDS: CLOPIDOGREL 75 MG (PLAVIX) TABLET PO SCH (08:49)
[2022-02-20] MEDS: KCL 20 MEQ TAB (K-DUR) PO SCH (08:49)
--- NOTE | 2022-02-20 08:55 | Physical Therapy Daily Note ---
PT Daily Note-Current Subjective Patient in recliner pre tx, agrees to PT, has 3/10 pain in left residual limb Appearance Patient in WC at bedside post tx with nurse call, phone, tray, all needs met, h as OT right after PT Mental Status Patient Orientation: Person, Place, Situation Transfers SCALE: Activities may be completed with or without assistive devices. 4-Mvqjdaully-copvwni completes the activity by him/herself with no assistance from a helper. 5-Set-up or Clean-up Assistance-helper sets up or cleans up; patient completes activity. [place] assists only prior to or following the activity. 4-Supervision or Touching Assistance-helper provides verbal cues and/or touching/steadying and/or contact guard assistance as patient completes activity. Assistance may be provided throughout the activity or intermittently. 3-Partial/Moderate Assistance-helper does LESS THAN HALF the effort. [place] lifts, holds or supports trunk or limbs, but provides less than half the effort. 2-Substantial/Maximal Assistance-helper does MORE THAN HALF the effort. [place] lifts or holds trunk or limbs and provides more than half the effort. 5-Lhxbnclro-fmbwvf does ALL the effort. Patient does none of the effort to complete the activity. Or, the assistance of 2 or more helpers is required for the patient to complete the activity. If activity was not attempted, code reason: 7-Patient Refused. 9-Not Applicable-not attempted and the patient did not perform the activity before the current illness, exacerbation or injury. 10-Not Attempted due to Environmental Limitations-(lack of equipment, weather restraints, etc.). 88-Not Attempted due to Medical Conditions or Safety Concerns. Roll Left & Right (QC): 4 Sit to Lying (QC): 4 Lying to Sitting/Side of Bed(Q: 3 Sit to Stand (QC): 3 Chair/Lrr-fb-Pvmsl Xfer(QC): 3 Patient needed min assist for supine to sit but SBA for sit to supine, he could not stand from the recliner but could from the parallel bars with mod assist (stood 3 times for about 1-2 min each time), from the recliner to the patient required max assist to stand pivot but from the therapy table he was able to perform a sliding transfer (without the use of a board) with min assist Wheelchair Training Does the Pt Use a Wheelchair?: Yes Wheel 50 ft with 2 turns (QC): 4 Wheel 150 ft (QC): 4 Type of Wheelchair: Manual 300', 150' Exercises prone hip stretch 5 min, supine knee extension stretch 5 min, alternating LAQ for 5 min Treatments bed mobility and transfers, standing, WC mobility, stretching, ROM Assessment Current Status: Poor Progress Patient declined in sit to stand, right leg seems weaker. Patient has poor pain tolerance and that prevents him from fully extending his left knee. Patient has bad shoulders and a manual WC wouldn't be good for him, he would do better with a power WC or scooter. 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 Final Goals PT Residential Goals Time Frame: Mar 03, 2022 Roll Left & Right (QC): 6 Sit to Lying (QC): 4 (CGA) Lying-Sitting on Side/Bed(QC): 4 (CGA) Sit to Stand (QC): 4 (CGA) Chair/Fbg-sl-Kqsaz Xfer(QC): 4 (CGA) Toilet Transfer (QC): 4 (CGA) Car Transfer (QC): 4 (CGA) Does the Patient Walk: Yes Walk 10 feet (QC): 4 (CGA) Walk 50ft with 2 Turns (QC): 88 Walk 150 ft (QC): 88 Walking 10ft on Uneven Surface: 4 (CGA) 1 Step (curb) (QC): 88 4 Steps (QC): 88 12 Steps (QC): 88 Picking up an Object (QC): 4 (CGA) Wheel 50 feet with 2 turns (QC: 6 Wheel 150 feet: 6 PT Plan Problem List Problem List: Activity Tolerance, Functional Strength, Safety, Balance, Gait, Transfer, Bed Mobility, ROM Treatment/Plan Treatment Plan: Continue Plan of Care Treatment Plan: Bed Mobility, Education, Functional Activity Lalit, Functional Strength, Group Therapy, Gait, Safety, Therapeutic Exercise, Transfers Treatment Duration: Mar 03, 2022 Frequency: At least 5 of 7 days/Wk (IRF) Estimated Hrs Per Day: 1.5 hours per day Patient and/or Family Agrees t: Yes Safety Risks/Education Patient Education: Transfer Techniques, Correct Positioning, W/C Management, Safety Issues Teaching Recipient: Patient Teaching Methods: Demonstration, Discussion Response to Teaching: Reinforcement Needed Time/GCodes Time In: 0800 Time Out: 0900 Total Billed Treatment Time: 60 Total Billed Treatment 1 visit EX 30' FA 30' JESSICA FOX PT Feb 20, 2022 08:55
[2022-02-20] MEDS: DOCUSATE SODIUM 100 MG (COLACE) CAP PO SCH ×2 (09:07→21:14)
[2022-02-20] MEDS: SENNA W/DOCUSATE (SENOKOT S) TABLET PO SCH ×2 (09:07→21:14)
[2022-02-20] MEDS: polyethylene glycoL POWDER 17 GM (MIRALAX) PACK PO SCH ×2 (09:07→21:14)
[2022-02-20] MEDS: AMIODARONE 200 MG (CORDARONE) TAB PO SCH (09:58)
--- NOTE | 2022-02-20 10:00 | Occupational Ther Daily Note ---
OT Current Status-Daily Note Subjective Pt resting in w/c upon OT arrival. Pt verbalized being tired and felt that his RLE was weaker today, but he was agreeable to tx. Mental Status/Objective Patient Orientation: Person, Place, Situation ADL-Treatment Therapy Code Descriptions/Definitions Functional [place] Measure: 0=Not Assessed/NA 4=Minimal Assistance 1=Total Assistance 5=Supervision or Setup 2=Maximal Assistance 6=Modified [place] 3=Moderate Assistance 7=Complete IndependenceSCALE: Activities may be completed with or without assistive devices. 6-Zltvydfuhz-djkhedy completes the activity by him/herself with no assistance from a helper. 5-Set-up or Clean-up Assistance-helper sets up or cleans up; patient completes activity. [place] assists only prior to or following the activity. 4-Supervision or Touching Assistance-helper provides verbal cues and/or touching/steadying and/or contact guard assistance as patient completes activity. Assistance may be provided throughout the activity or intermittently. 3-Partial/Moderate Assistance-helper does LESS THAN HALF the effort. [place] lifts, holds or supports trunk or limbs, but provides less than half the effort. 2-Substantial/Maximal Assistance-helper does MORE THAN HALF the effort. [place] lifts or holds trunk or limbs and provides more than half the effort. 2-Iosnafkak-whzhly does ALL the effort. Patient does none of the effort to complete the activity. Or, the assistance of 2 or more helpers is required for the patient to complete the activity. If activity was not attempted, code reason: 7-Patient Refused. 9-Not Applicable-not attempted and the patient did not perform the activity before the current illness, exacerbation or injury. 10-Not Attempted due to Environmental Limitations-(lack of equipment, weather restraints, etc.). 88-Not Attempted due to Medical Conditions or Safety Concerns. Oral Hygiene (QC): 5 (seated at the sink) Shower/Bathe Self (QC): 5 (Covering wound dressings. Shower completed 100% seated) Upper Body Dressing (QC): 3 (Min A overall. Pt required v/c's to recall technique taught last week. Assistance pulling shirt down in back.) Lower Body Dressing (QC): 1 (Pt able to doff pants while seated, needed min A to thread legs through pants, and was able to hike pants to buttocks, assist x2 to hike remainder of way in stand) On/Off Footwear: 3 (Mod A overall. Pt able to doff gripper sock, but required total A to don compression sock. Pt able to don sock and shoe with min A.) Toileting Hygiene (QC): 1 (Assist x2 for doffing/donning cloths) Other Treatment [facility]. Pt pushed into shower to complete undressing and bathing. After showering, pt completed toileting while seated in wheeled PA, placed over toilet. [facility], requiring assist x2 to hike pants up over buttocks in stand. Cont education provided to on the importance of letting pt be as IND as possible in self-care, she is understanding and verbalized that she is working on letting him do more on his own. Pt transferred back to / with mod assistx2, then wheeled to sink to complete oral hygiene/grooming tasks. Afterwards, [facility]-mod assist[facility]. Post tx, pt left in recliner with call light in reach and all needs met. Education OT Patient Education: Correct positioning, Energy conservation, Exercise program, Instructions to caregiver, Modified ADL techniques, Progress toward Goal/Update tx plan, Purpose of tx/functional activities, Rehab process, Transfer techniques, Use of adapted equipment Teaching Recipient: Patient, Significant Other Teaching Methods: Discussion Response to Teaching: Verbalize Understanding, Reinforcement Needed OT Short Term Goals Short Term Goals Time Frame: Feb 24, 2022 Shower/bathe self: 3 Lower body dressin OT Intermediate Goals Visual Supervisor Goals Time Frame: Mar 10, 2022 Eating (QC): 6 Oral Hygiene (QC): 6 Toileting Hygiene (QC): 6 Shower/Bathe Self (QC): 4 Upper Body Dressing (QC): 4 Lower Body Dressing (QC): 3 On/Off Footwear (QC): 3 Additional Goals: 1-Demonstrate ADL Tasks, 2-Verbalize Understanding, 3- ImproveStrength/Lalit 1=Demonstrate adherence to instructed precautions during ADL tasks. 2=Patient will verbalize/demonstrate understanding of assistive devices/modifications for ADL. 3=Patient will improve strength/tolerance for activity to enable patient to perform ADL's. OT Education/Plan Problem List/Assessment Assessment: Decreased Activ Tolerance, Decreased UE Strength, Impaired Coordination, Impaired Funct Balance, Impaired I ADL's, Impaired Self-Care Skills, Restricted Funct UE ROM Discharge Recommendations Plan/Recommendations: Continue POC Treatment Plan/Plan of Care Patient would benefit from OT for education, treatment and training to promote independence in ADL's, mobility, safety and/or upper extremity function for ADL's. Plan of Care: ADL Retraining, Functional Mobility, Group Exercise/Act as Ind, UE Funct Exercise/Act, UE Neuromus Re-Ed/Coord, W/C Management Training Treatment Duration: Mar 10, 2022 Frequency: At least 5 of 7 days/Wk (IRF) Estimated Hrs Per Day: 1.5 hours per day Agreement: Yes Rehab Potential: Fair Time/GCodes Start Time: 09:00 Stop Time: 10:00 Total Time Billed (hr/min): 60 Billed Treatment Time 1, ADL 4 (60') OCTAVIA ORLANDO OT Feb 20, 2022 10:00
--- NOTE | 2022-02-20 13:18 | Therapy Group Daily Note ---
Therapy Daily Group Note Patient Education Topic Home Safety, Exercises, Other List Below (Nutrition/Health) Exercises LE Seated Exercise, UE Exercise Session Ratio (pt:therapist): 4:1 Goal of Session: Home Safety Strategies, UE/LE Strengthing, Other (list) (Nutrition/Health) Goal Met for this Session: Yes Pt Benefit of Group: Contributions to Others, F/U Use of Strategies @Home, Increased Functional Safety, Increased Functional Strength, Improved Cognition, Recognition of Peers, Socialization Other/Notes Pt participated in Nutrition and health promotion group in [facility]. Pt participated in group session, first with introductions (Name, where pt is from, and favorite place to watch fireworks). This group treatment was better than individual to address socialization and recognition of peers. Pt met goals of group as demonstrated by answering questions related to overall health and nutrition, and participating in UE/LE seated exercises. Pt demonstrated the following abilities during group activity: good problem solving and safety skills, improved attention span and ability to participate in group without being distracted by the environment. Pt returned to his room via w/c, SPT to recliner. Post tx, pt in recliner, call light in reach and all needs met. Start Time: 12:00 Stop Time: 13:00 Total Billed Treatment Time: 60 Total Billed Treatment 1, GRP OCTAVIA ORLANDO OT Feb 20, 2022 13:18
[2022-02-20 19:57] VITALS: BP 143/62
[2022-02-20] MEDS: MELATONIN 3 MG TABLET PO PRN (21:29)
[2022-02-21 05:39] LABS: BASOPHILS # (AUTO) 0.1 10^3/uL (0.0-0.1); BASOPHILS % (AUTO) 0 % (0-10); EOSINOPHILS # (AUTO) 0.2 10^3/uL (0.0-0.3); EOSINOPHILS % (AUTO) 1 % (0-10); HEMATOCRIT 35 % (40-54); HEMOGLOBIN 10.4 g/dL (13.3-17.7); LYMPHOCYTES # (AUTO) 1.4 10^3/uL (1.0-4.0); LYMPHOCYTES % (AUTO) 13 % (12-44); MEAN CORPUSCULAR HEMOGLOBIN 25 pg (25-34); MEAN CORPUSCULAR HGB CONC 30 g/dL (32-36); MEAN CORPUSCULAR VOLUME 83 fL (80-99); MEAN PLATELET VOLUME 11.7 fL (9.0-12.2); MONOCYTES # (AUTO) 1.1 10^3/uL (0.0-1.0); MONOCYTES % (AUTO) 10 % (0-12); NEUTROPHILS # (AUTO) 8.4 10^3/uL (1.8-7.8); NEUTROPHILS % (AUTO) 75 % (42-75); PLATELET COUNT 327 10^3/uL (130-400); WHITE BLOOD COUNT 11.2 10^3/uL (4.3-11.0)
[2022-02-21 05:52] LABS: ALBUMIN 3.6 GM/DL (3.2-4.5); POTASSIUM 3.7 MMOL/L (3.6-5.0)
[2022-02-21 05:53] LABS: CALCIUM 9.7 MG/DL (8.5-10.1)
[2022-02-21 05:54] LABS: TOTAL PROTEIN 7.3 GM/DL (6.4-8.2)
[2022-02-21 05:56] LABS: BILIRUBIN,TOTAL 0.5 MG/DL (0.1-1.0)
[2022-02-21 05:58] LABS: CREATININE SERUM 0.92 MG/DL (0.60-1.30)
[2022-02-21] MEDS: inSUlin ASPART (NovoLOG) 1 UNIT/0.01 ML (CHARGE PER UNIT) SC SCH ×4 (05:58→21:07)
[2022-02-21] MEDS: GLIMEPIRIDE 1 MG (AMARYL) TAB PO SCH (06:01)
[2022-02-21] MEDS: metFORMIN 500 MG (GLUCOPHAGE) TAB PO SCH ×2 (06:01→16:14)
[2022-02-21] MEDS: LEVOTHYROXINE 100 MCG (LEVOTHROID) TAB PO SCH (06:01)
--- NOTE | 2022-02-21 06:20 | PM&R Progress Note ---
Subjective HPI/CC On Admission Date Seen by Provider: Feb 21, 2022 Time Seen by Provider: 12:30 Subjective/Events-last exam 02/21/2022: Pt is doing really well Left leg could very well have to be transitioned to an AKA Wants to go home soon No other concerns Pain is still an issue Gabapentin is giving him hallucinations so we'll stop that 02/20/2022: Patient doing really well Blood sugars are perfect Pain is an issue 02/19/2022: Patient doing really well Blood sugars reviewed Pain is improved 02/18/2022: Pt doing pretty well Is more comfortable sitting on the side of the bed leaned over on a pillow and his leg doesn't hurt as much Blood sugars are much improved with the Amaryl 1mg and Metformin 500mg BID 02/17/2022: Pt is doing a lot better Loose bowel movement noted Gabapentin 200 mg TID has given much improvement in pain No other falls Checked meds and labs 02/16/2022: Pt is doing well Dr. Perez thought the leg looked better today and didn't require surgery Will take Melatonin tonight to help him sleep Bowels moved yesterday Sugars are elevated so will start Amaryl 1 mg to the Metformin 500 BID started yesterday 02/15/2022: Pt is doing really well Bowels moved two days ago Dr. Wade did treat his toenails Dr. Guido wants a general surgeon to debride it or the pt can go back over to Dr. Guido at [place] to have that done with his leg 02/14/2022: Patient doing a lot better Complaining of pain but declines any pain medication Sugar is much improved after hypoglycemia Bowels are moving now at bedside 02/13/2022: Patient doing a lot better Blood sugars 164, 113 Declines to take morphine for addiction potential really helps the patient 02/12/2022: Patient doing pretty well at bedside Blood sugar is 99 after being very low Suppository produced a small bowel movement so we will initiate more laxatives or Holding metoprolol due to low blood pressure Holding losartan as of yesterday due to low blood pressure Mag citrate is being used for constipation today 02/11/2022: Patient doing really well Blood sugars reviewed and holding metformin and oral hypoglycemic agent due to hypoglycemia Pain is controlled Laxatives given Checked meds and labs Review of Systems General: Fatigue Objective Exam Vital Signs Vital Signs Date Time Temp Pulse Resp B/P (MAP) Pulse Ox O2 Delivery O2 Flow Rate FiO2 02/21/22 19:53 36.9 89 20 131/57 (81) 93 Room Air Capillary Refill : General Appearance: No Apparent Distress, WD/WN, Chronically ill HEENT: PERRL/EOMI, Normal ENT Inspection, Pharynx Normal Neck: Full Range of Motion, Normal Inspection, Non Tender, Supple, Carotid Bruit Respiratory: Chest Non Tender, Lungs Clear, Normal Breath Sounds, No Accessory Muscle Use, No Respiratory Distress Cardiovascular: No Edema, No Gallop, No JVD, No Murmur, Normal Peripheral Pulses, Irregularly Irregular Gastrointestinal: Normal Bowel Sounds, No Organomegaly, No Pulsatile Mass, Non Tender, Soft Back: Normal Inspection, No CVA Tenderness, No Vertebral Tenderness Extremity: Normal Capillary Refill, Normal Inspection, Normal Range of Motion, Non Tender, No Calf Tenderness, No Pedal Edema Neurologic/Psychiatric: Alert, Oriented x3, Normal Mood/Affect, manager recovery II-XII Norm as Tested, Abnormal Gait, Motor Weakness (left sided lower extremity BKA) Skin: Normal Color, Warm/Dry Lymphatic: No Adenopathy Results/Procedures Lab Laboratory Tests 02/21/22 05:07 Patient resulted labs reviewed. FIM Transfers Therapy Code Descriptions/Definitions Functional [place] Measure: 0=Not Assessed/NA 4=Minimal Assistance 1=Total Assistance 5=Supervision or Setup 2=Maximal Assistance 6=Modified [place] 3=Moderate Assistance 7=Complete IndependenceSCALE: Activities may be completed with or without assistive devices. 2-Aaydilgrck-lxeuimp completes the activity by him/herself with no assistance from a helper. 5-Set-up or Clean-up Assistance-helper sets up or cleans up; patient completes activity. [place] assists only prior to or following the activity. 4-Supervision or Touching Assistance-helper provides verbal cues and/or touching/steadying and/or contact guard assistance as patient completes activity. Assistance may be provided throughout the activity or intermittently. 3-Partial/Moderate Assistance-helper does LESS THAN HALF the effort. [place] lifts, holds or supports trunk or limbs, but provides less than half the effort. 2-Substantial/Maximal Assistance-helper does MORE THAN HALF the effort. [place] lifts or holds trunk or limbs and provides more than half the effort. 1-Jxilgwlhg-elxylr does ALL the effort. Patient does none of the effort to complete the activity. Or, the assistance of 2 or more helpers is required for the patient to complete the activity. If activity was not attempted, code reason: 7-Patient Refused. 9-Not Applicable-not attempted and the patient did not perform the activity before the current illness, exacerbation or injury. 10-Not Attempted due to Environmental Limitations-(lack of equipment, weather restraints, etc.). 88-Not Attempted due to Medical Conditions or Safety Concerns. Roll Left to Right (QC): 4 Sit to Lying (QC): 4 Sit to Stand (QC): 3 Chair/Xcb-ct-Gzlgh Xfer(QC): 3 Car Transfer (QC): 3 Gait Training Does the Patient Walk?: No and Walking Goal IS indicated Walk 10 feet (QC): 88 Walk 50 ft with 2 Turns(QC): 88 Walk 150 ft (QC): 88 Walking 10ft/uneven surface-QC: 88 Gait Assistive Device: Parallel Bars Wheelchair Training Does the Pt Use a Wheelchair?: Yes Distance: 150'x2 Wheel 50 ft with 2 turns (QC): 4 Wheel 150 ft (QC): 4 Type of Wheelchair: Manual Stair Training 1 Step (curb) (QC): 88 4 Steps (QC): 88 12 Steps (QC): 88 Balance Picking up an Object (QC): 88 ADL-Treatment Eating (QC): 5 (Assistance opening some containers per pt) Oral Hygiene (QC): 5 (seated at the sink) Shower/Bathe Self (QC): 5 (Covering wound dressings. Shower completed 100% seated) Upper Body Dressing (QC): 3 (Min A overall. Pt required v/c's to recall technique taught last week. Assistance pulling shirt down in back.) Lower Body Dressing (QC): 1 (Pt able to doff pants while seated, needed min A to thread legs through pants, and was able to hike pants to buttocks, assist x2 to hike remainder of way in stand) On/Off Footwear (QC): 3 (Mod A overall. Pt able to doff gripper sock, but required total A to don compression sock. Pt able to don sock and shoe with min A.) Toileting Hygiene (QC): 1 (Assist x2 for doffing/donning cloths) Toilet Transfer (QC): 3 Assessment/Plan Assessment and Plan Assess & Plan/Chief Complaint Assessment: LBKA 02/07/22 Severe PVD PAF OAC HTN HLP DM Hypothyroidism Hypoglycemia holding metformin and glimepiride Constipation Plan: Home meds SSI PT OT Pain control BM treatment 02/11/2022: Hold diabetic meds due to hypoglycemia Pain control Bowel regimen 02/12/2022: BM regimen Monitor glucose 02/13/2022: Monitor sugar Hypoglycemia high risk 02/14/2022: Monitor closely Pain control Sugar monitoring 02/15/2022: Consult Dr Perez Restart Metformin 02/16/2022: Appreciate Dr Perez Add Amaryl 02/17/2022: Improved sugars Increase Gabapentin slowly 02/18/2022: Pain is improved Supportive care 02/19/2022: Pain is improved Blood sugar improved 02/20/2022: Blood sugars perfect 02/21/2022: Monitor closely Hold Gabapentin (1) Amputation of left lower extremity below knee XIOMARA DICKENS DO Feb 21, 2022 06:20
[2022-02-21 07:19] VITALS: BP 116/81
[2022-02-21] MEDS: KCL 20 MEQ TAB (K-DUR) PO SCH (07:35)
[2022-02-21] MEDS: SENNA W/DOCUSATE (SENOKOT S) TABLET PO SCH ×2 (07:35→21:08)
[2022-02-21] MEDS: APIXABAN 5 MG (ELIQUIS) TABLET PO SCH ×2 (07:35→21:07)
[2022-02-21] MEDS: VITAMIN D3 25 MCG (1,000 UNITS) TABLET PO SCH (07:35)
[2022-02-21] MEDS: GABAPENTIN 100 MG (NEURONTIN) CAP PO SCH ×3 (07:35→21:07)
[2022-02-21] MEDS: FUROSEMIDE 40 MG (LASIX) TAB PO SCH (07:36)
[2022-02-21] MEDS: AMIODARONE 200 MG (CORDARONE) TAB PO SCH (07:36)
[2022-02-21] MEDS: CLOPIDOGREL 75 MG (PLAVIX) TABLET PO SCH (07:36)
[2022-02-21] MEDS: PANTOPRAZOLE 40 MG (PROTONIX) TAB PO SCH (07:36)
[2022-02-21] MEDS: DOCUSATE SODIUM 100 MG (COLACE) CAP PO SCH ×2 (07:36→21:13)
--- NOTE | 2022-02-21 07:59 | Progress Note - Surgery ---
SERGIO ISLAS 02/21/22 0759: Subjective Date Seen by a Provider: Feb 21, 2022 Time Seen by a Provider: 07:15 Subjective/Events-last exam Mr. Coffey is being followed for wound care of his left leg stump s/p BKA. This morning he reports his pain is under control and he only has minimal pain with dressing changes. He thinks dressing changes are done daily but he is not positive. Tolerating diet well. His only complaint this morning is having a hard time sleeping. He endorses vivid dreams and hallucinations that are preventing him from sleeping. He thinks it started about 4 days ago about he was started on a medicine; he is not sure which medicine. Review of Systems General: No Chills, No Fatigue HEENT: No Head Aches, No Visual Changes Pulmonary: No Dyspnea, No Cough Cardiovascular: No: Chest Pain, Palpitations Gastrointestinal: No: Nausea, Vomiting, Abdominal Pain Musculoskeletal: leg pain (Minor with pressure, left) Neurological: No: Weakness, Confusion Objective Exam Vital Signs Date Time Temp Pulse Resp B/P (MAP) Pulse Ox O2 Delivery O2 Flow Rate FiO2 02/21/22 07:19 36.3 74 16 116/81 (93) 95 Room Air 02/20/22 21:12 Room Air 02/20/22 19:57 36.4 75 18 143/62 (89) 94 Room Air 02/20/22 09:04 Room Air 02/20/22 07:56 36.6 72 14 136/57 (83) 91 Room Air Capillary Refill : General Appearance: No Apparent Distress, WD/WN HEENT: PERRL/EOMI; No Scleral Icterus (L), No Scleral Icterus (R) Neck: Non Tender, Supple Respiratory: Chest Non Tender, Lungs Clear, Normal Breath Sounds, No Accessory Muscle Use, No Respiratory Distress Cardiovascular: Regular Rate, Rhythm (PAF), No Edema, Normal Peripheral Pulses Peripheral Pulses: 2+ Radial Pulses (R), 2+ Radial Pulses (L) Gastrointestinal: non tender, soft Extremity: No Pedal Edema, Other (Left BKA with sock and dressing in place. 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-XII Norm as Tested Skin: Normal Color, Warm/Dry Results Lab Laboratory Tests 02/20/22 11:05: Glucometer 194H 02/20/22 15:37: Glucometer 125H 02/20/22 20:10: Glucometer 129H 02/21/22 05:07: White Blood Count 11.2H, Red Blood Count 4.19L, Hemoglobin 10.4L, Hematocrit 35L , Mean Corpuscular Volume 83, Mean Corpuscular Hemoglobin 25, Mean Corpuscular Hemoglobin Concent 30L, Red Cell Distribution Width 19.1H, Platelet Count 327, Mean Platelet Volume 11.7, Immature Granulocyte % (Auto) 0, Neutrophils (%) (Auto) 75, Lymphocytes (%) (Auto) 13, Monocytes (%) (Auto) 10, Eosinophils (%) (Auto) 1, Basophils (%) (Auto) 0, Neutrophils # (Auto) 8.4H, Lymphocytes # (Auto) 1.4, Monocytes # (Auto) 1.1H, Eosinophils # (Auto) 0.2, Basophils # (Auto) 0.1, Immature Granulocyte # (Auto) 0.0, Sodium Level 134L, Potassium Level 3.7, Chloride Level 97L, Carbon Dioxide Level 23, Anion Gap 14, Blood Urea Nitrogen 29H, Creatinine 0.92, Estimat Glomerular Filtration Rate 89, BUN/Creatinine Ratio 32, Glucose Level 100, Calcium Level 9.7, Corrected Calcium 10.0, Total Bilirubin 0.5, Aspartate Amino Transf (AST/SGOT) 21, Alanine Aminotransferase (ALT/SGPT) 17, Alkaline Phosphatase 59, Total Protein 7.3, Albumin 3.6 Assessment/Plan Assessment/Plan Assessment/Plan Assessment: s/p Left BKA Peripheral Vascular Disease Ischemia of Left limb Elevated BUN - BUN/Cr > 20:1 Plan: Consider d/c melatonin d/t vivid dreams Encourage adequate fluid intake Pain control Dressing changes daily. Currently possibility of ischemia that is superficial, and will heal from inside out. Patient does understand potential for aka. YONI PEREZ DO 02/21/22 1203: Subjective Time Seen by a Provider: 11:36 Subjective/Events-last exam Pt seen and examined, states pain is under control but does have some when they change bandage. Review of Systems General: No Chills HEENT: No Head Aches, No Visual Changes Pulmonary: No Dyspnea, No Cough Cardiovascular: No: Chest Pain, Palpitations Gastrointestinal: No: Nausea, Vomiting, Abdominal Pain Musculoskeletal: leg pain (Minor with pressure, left) Objective Exam General Appearance: No Apparent Distress, WD/WN HEENT: PERRL/EOMI Respiratory: Chest Non Tender, Lungs Clear, Normal Breath Sounds, No Accessory Muscle Use, No Respiratory Distress Cardiovascular: Regular Rate, Rhythm (PAF), Normal Peripheral Pulses Gastrointestinal: non tender, soft Extremity: Other (Left BKA leg is looking worse, starting to demarcate and you can see on the skin where the compression brace caused ischemia, there is some skin sloughing off, areas of erythem and serous drainage. Does not appear to be infected, but the area around the siri looks worse than it did when I saw it Sunday.) Assessment/Plan Assessment/Plan Assessment/Plan s/p Left BKA Peripheral Vascular Disease Ischemia of Left limb Elevated BUN - BUN/Cr > 20:1 Plan: Consider d/c melatonin d/t vivid dreams Encourage adequate fluid intake Pain control Dressing changes daily. Currently possibility of ischemia that is superficial, and will heal from inside out. Patient does understand potential for AKA if it does not start healing or if it gets infected Supervisory-Addendum Brief Verification & Attestation Participated in pt care: history, MDM, physical Personally performed: exam, history, MDM, supervision of care Care discussed with: Medical Student Procedures: n/a Verification and Attestation of Medical Student E/M Service A medical student performed and documented this service. I then reviewed and verified all information documented by the medical student and made modifications to such information, when appropriate. I personally performed a physical exam, medical decision making and then discussed any differences between the notes and made revisions as necessary to create one note. Yoni Perez , 02/21/22 , 12:04 SERGIO ISLAS Feb 21, 2022 07:59 YONI PEREZ DO Feb 21, 2022 12:03
[2022-02-21] MEDS: polyethylene glycoL POWDER 17 GM (MIRALAX) PACK PO SCH ×2 (08:28→21:08)
--- NOTE | 2022-02-21 08:54 | Physical Therapy Daily Note ---
PT Daily Note-Current Subjective Patient in recliner pre tx, agrees to PT, voices no complaints of pain Appearance Patient in WC at bedside post tx, has OT right after PT, has nurse call and tray. Mental Status Patient Orientation: Normal For Age Transfers SCALE: Activities may be completed with or without assistive devices. 7-Ezylhjthvl-fdushif completes the activity by him/herself with no assistance from a helper. 5-Set-up or Clean-up Assistance-helper sets up or cleans up; patient completes activity. [place] assists only prior to or following the activity. 4-Supervision or Touching Assistance-helper provides verbal cues and/or to uching/steadying and/or contact guard assistance as patient completes activity. Assistance may be provided throughout the activity or intermittently. 3-Partial/Moderate Assistance-helper does LESS THAN HALF the effort. [place] lifts, holds or supports trunk or limbs, but provides less than half the effort. 2-Substantial/Maximal Assistance-helper does MORE THAN HALF the effort. [place] lifts or holds trunk or limbs and provides more than half the effort. 7-Picqjrmxg-zcmwth does ALL the effort. Patient does none of the effort to complete the activity. Or, the assistance of 2 or more helpers is required for the patient to complete the activity. If activity was not attempted, code reason: 7-Patient Refused. 9-Not Applicable-not attempted and the patient did not perform the activity before the current illness, exacerbation or injury. 10-Not Attempted due to Environmental Limitations-(lack of equipment, weather restraints, etc.). 88-Not Attempted due to Medical Conditions or Safety Concerns. Sit to Stand (QC): 3 Chair/Zij-bx-Ifnqj Xfer(QC): 3 During therapy patient had to go back to his room and use his urinal, did not need assist with this. Wheelchair Training Does the Pt Use a Wheelchair?: Yes Wheel 50 ft with 2 turns (QC): 4 Wheel 150 ft (QC): 4 Type of Wheelchair: Manual 300', SBA, very slow, needs occasional cues for direction Exercises Standing: Sit to Stand (stood only for about 30 sec each time) Standing Reps: 2 NuStep Minutes: 15 NuStep Workload: 4 Treatments transfers, standing, functional strengthening, WC mobility Assessment Current Status: Poor Progress patient seems to be declining a little in RLE strength, patient states his right foot if numb PT Short Term Goals Short Term Goals Time Frame: Feb 17, 2022 Roll Left & Right: 6 Sit to lyin (Batsheva) Lying to sitting on side of be: 3 (Batsheva) Sit to stand: 3 (Batsheva) Chair/mjs-qe-lfxnv transfer: 3 Walk 10 feet: 3 (Batsheva) PT Radiology Rn Goals Care Home Goals PT Care Home Goals Time Frame: Mar 03, 2022 Roll Left & Right (QC): 6 Sit to Lying (QC): 4 (CGA) Lying-Sitting on Side/Bed(QC): 4 (CGA) Sit to Stand (QC): 4 (CGA) Chair/Xbn-qi-Xdncn Xfer(QC): 4 (CGA) Toilet Transfer (QC): 4 (CGA) Car Transfer (QC): 4 (CGA) Does the Patient Walk: Yes Walk 10 feet (QC): 4 (CGA) Walk 50ft with 2 Turns (QC): 88 Walk 150 ft (QC): 88 Walking 10ft on Uneven Surface: 4 (CGA) 1 Step (curb) (QC): 88 4 Steps (QC): 88 12 Steps (QC): 88 Picking up an Object (QC): 4 (CGA) Wheel 50 feet with 2 turns (QC: 6 Wheel 150 feet: 6 PT Plan Problem List Problem List: Activity Tolerance, Functional Strength, Safety, Balance, Transfer, Bed Mobility, ROM Treatment/Plan Treatment Plan: Continue Plan of Care Treatment Plan: Bed Mobility, Education, Functional Activity Lalit, Functional Strength, Group Therapy, Gait, Safety, Therapeutic Exercise, Transfers Treatment Duration: Mar 03, 2022 Frequency: At least 5 of 7 days/Wk (IRF) Estimated Hrs Per Day: 1.5 hours per day Patient and/or Family Agrees t: Yes Safety Risks/Education Patient Education: Transfer Techniques, Correct Positioning, W/C Management, Safety Issues Teaching Recipient: Patient Teaching Methods: Demonstration, Discussion Response to Teaching: Reinforcement Needed Time/GCodes Time In: 0800 Time Out: 0900 Total Billed Treatment Time: 60 Total Billed Treatment 1 visit EX 15' FA 45' JESSICA FOX PT Feb 21, 2022 08:54
--- NOTE | 2022-02-21 10:04 | Occupational Ther Daily Note ---
OT Current Status-Daily Note Subjective Pt seated in w/c discussing R foot/heel discomfort d/t pain and swelling with PT upon OT arrival, agreeable to tx. Pt says he is having vivid dreams since start of new medicine ~4 days ago, very groggy d/t lack of sleep, falling asleep during RBs in tx. Mental Status/Objective Patient Orientation: Person, Place, Situation ADL-Treatment Therapy Code Descriptions/Definitions Functional [place] Measure: 0=Not Assessed/NA 4=Minimal Assistance 1=Total Assistance 5=Supervision or Setup 2=Maximal Assistance 6=Modified [place] 3=Moderate Assistance 7=Complete IndependenceSCALE: Activities may be completed with or without assistive devices. 9-Jameefnvjt-xvjsxca completes the activity by him/herself with no assistance from a helper. 5-Set-up or Clean-up Assistance-helper sets up or cleans up; patient completes activity. [place] assists only prior to or following the activity. 4-Supervision or Touching Assistance-helper provides verbal cues and/or touching/steadying and/or contact guard assistance as patient completes activity. Assistance may be provided throughout the activity or intermittently. 3-Partial/Moderate Assistance-helper does LESS THAN HALF the effort. [place] lifts, holds or supports trunk or limbs, but provides less than half the effort. 2-Substantial/Maximal Assistance-helper does MORE THAN HALF the effort. [place] lifts or holds trunk or limbs and provides more than half the effort. 8-Ywmsahyti-zinxaq does ALL the effort. Patient does none of the effort to complete the activity. Or, the assistance of 2 or more helpers is required for the patient to complete the activity. If activity was not attempted, code reason: 7-Patient Refused. 9-Not Applicable-not attempted and the patient did not perform the activity before the current illness, exacerbation or injury. 10-Not Attempted due to Environmental Limitations-(lack of equipment, weather restraints, etc.). 88-Not Attempted due to Medical Conditions or Safety Concerns. 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 In order to increase BUE ROM and activity tolerance, He completed 4minutes of slow, controlled shoulder flexion on the pulleys. He then completed horizontal abduction and adduction 2x15 per UE while sitting parallel with the raised mat, sliding UE acroos mat. Pt required v/c's to take RBs PRN and to continue breathing through exercises. Both armrests were removed from w/c to address core strength and stability while leaning forward for inclined dowel exercises (x15) and leaning side to side during functional activities. Pt retrieved ferrer bag from one side, crossed midline, and placed ferrer bag in basket on opposite side, 13x per UE. He then retrieved graded clothespins from both sides and leaned forward to clip them onto the board, 8x per UE. Both of these functional activities addressed shoulder ROM, core strength and stability, and overall activity tolerance. Armrests returned to w/c. Pt pushed back to room and transferred to recliner, min-mod assistx2, and properly positioned to prevent pain and swelling in R heel. Post tx, pt left in recliner with call light in reach and all needs met. Education OT Patient Education: Correct positioning, Energy conservation, Exercise program, Progress toward Goal/Update tx plan, Purpose of tx/functional activities, Rehab process, Safety issues, Transfer techniques, W/C management Teaching Recipient: Patient Teaching Methods: Demonstration, Discussion Response to Teaching: Verbalize Understanding, Return Demonstration OT Short Term Goals Short Term Goals Time Frame: Feb 24, 2022 Shower/bathe self: 3 Lower body dressin OT Clasp Machine Operator Goals Clasp Machine Operator Goals Time Frame: Mar 10, 2022 Eating (QC): 6 (not met) Oral Hygiene (QC): 6 (not met) Toileting Hygiene (QC): 6 (not met) Shower/Bathe Self (QC): 4 (met) Upper Body Dressing (QC): 4 (not met) Lower Body Dressing (QC): 3 (not met) On/Off Footwear (QC): 3 (nt met) Additional Goals: 1-Demonstrate ADL Tasks, 2-Verbalize Understanding, 3- ImproveStrength/Lalit 1=Demonstrate adherence to instructed precautions during ADL tasks. 2=Patient will verbalize/demonstrate understanding of assistive devices/modifications for ADL. 3=Patient will improve strength/tolerance for activity to enable patient to perform ADL's. OT Education/Plan Problem List/Assessment Assessment: Decreased Activ Tolerance, Decreased UE Strength, Impaired Funct Balance, Impaired I ADL's, Impaired Self-Care Skills, Restricted Funct UE ROM Discharge Recommendations Plan/Recommendations: Continue POC Treatment Plan/Plan of Care Patient would benefit from OT for education, treatment and training to promote independence in ADL's, mobility, safety and/or upper extremity function for ADL's. Plan of Care: ADL Retraining, Functional Mobility, Group Exercise/Act as Ind, UE Funct Exercise/Act, UE Neuromus Re-Ed/Coord, W/C Management Training Treatment Duration: Mar 10, 2022 Frequency: At least 5 of 7 days/Wk (IRF) Estimated Hrs Per Day: 1.5 hours per day Agreement: Yes Rehab Potential: Fair Time/GCodes Start Time: 09:00 Stop Time: 10:00 Total Time Billed (hr/min): 60 Billed Treatment Time 1, Ex 2 (30'), FA 2 (30') OCTAVIA ORLANDO OT Feb 21, 2022 10:04
--- NOTE | 2022-02-21 14:10 | Occupational Ther Daily Note ---
OT Current Status-Daily Note Subjective Pt on toilet upon OT arrival, agreeable for OT to take over for nursing and participate in therapy. Mental Status/Objective Patient Orientation: Person, Place, Situation ADL-Treatment Therapy Code Descriptions/Definitions Functional [place] Measure: 0=Not Assessed/NA 4=Minimal Assistance 1=Total Assistance 5=Supervision or Setup 2=Maximal Assistance 6=Modified [place] 3=Moderate Assistance 7=Complete IndependenceSCALE: Activities may be completed with or without assistive devices. 4-Mpzqmlbhvt-eallxfh completes the activity by him/herself with no assistance from a helper. 5-Set-up or Clean-up Assistance-helper sets up or cleans up; patient completes activity. [place] assists only prior to or following the activity. 4-Supervision or Touching Assistance-helper provides verbal cues and/or touching/steadying and/or contact guard assistance as patient completes activity. Assistance may be provided throughout the activity or intermittently. 3-Partial/Moderate Assistance-helper does LESS THAN HALF the effort. [place] lifts, holds or supports trunk or limbs, but provides less than half the effort. 2-Substantial/Maximal Assistance-helper does MORE THAN HALF the effort. [place] lifts or holds trunk or limbs and provides more than half the effort. 9-Plrfjjqdw-wbqorg does ALL the effort. Patient does none of the effort to complete the activity. Or, the assistance of 2 or more helpers is required for the patient to complete the activity. If activity was not attempted, code reason: 7-Patient Refused. 9-Not Applicable-not attempted and the patient did not perform the activity before the current illness, exacerbation or injury. 10-Not Attempted due to Environmental Limitations-(lack of equipment, weather restraints, etc.). 88-Not Attempted due to Medical Conditions or Safety Concerns. Toileting Hygiene (QC): 1 (Assist x2 to hike pants up ) Other Treatment Pt transferred from toilet to w/c, mod A assist x2. Pt pushed to therapy gym to participate in functional activities and exercises focused on strengthening BUE and increasing shoulder ROM in order to increase IND in ADLs. Pt stood at parallel bars, mod-max assistx2, and touched shoulder with alternating hands, x20. Pt unable to lift hands off bars on the second round d/t poor positioning, but he was able to complete ~10 touches on the third round before needing a RB. OT provided continued education on importance of extending R leg to stand tall to increase stability and enable BUE function while standing, pt verbalized understanding but needed reinforcement throughout standing activities. While sitting in w/c, he pushed dowel haylie forwards across top of parallel bars to inc rease shoulder flexion, x10. A yellow theraband (low resistance) was held in place on the dowel haylei and pt completed ~15 modified rows followed by ~15 chest presses, RBs in between. Pt pushed back to room and requested to remain in w/c. Post tx, pt left in w/c with call light in reach and all needs met. Education OT Patient Education: Correct positioning, Energy conservation, Exercise program, Modified ADL techniques, Progress toward Goal/Update tx plan, Purpose of tx/functional activities, Rehab process, Safety issues, Transfer techniques, Use of adapted equipment Teaching Recipient: Patient Teaching Methods: Demonstration, Discussion Response to Teaching: Verbalize Understanding, Return Demonstration, Reinforcement Needed OT Short Term Goals Short Term Goals Time Frame: Feb 24, 2022 Shower/bathe self: 3 Lower body dressin OT Snf Goals Snf Goals Time Frame: Mar 10, 2022 Eating (QC): 6 (not met) Oral Hygiene (QC): 6 (not met) Toileting Hygiene (QC): 6 (not met) Shower/Bathe Self (QC): 4 (met) Upper Body Dressing (QC): 4 (not met) Lower Body Dressing (QC): 3 (not met) On/Off Footwear (QC): 3 (nt met) Additional Goals: 1-Demonstrate ADL Tasks, 2-Verbalize Understanding, 3- ImproveStrength/Lalit 1=Demonstrate adherence to instructed precautions during ADL tasks. 2=Patient will verbalize/demonstrate understanding of assistive devices/modifications for ADL. 3=Patient will improve strength/tolerance for activity to enable patient to perform ADL's. OT Education/Plan Problem List/Assessment Assessment: Decreased Activ Tolerance, Decreased UE Strength, Impaired Funct Balance, Impaired I ADL's, Impaired Self-Care Skills, Restricted Funct UE ROM Discharge Recommendations Plan/Recommendations: Continue POC Treatment Plan/Plan of Care Patient would benefit from OT for education, treatment and training to promote independence in ADL's, mobility, safety and/or upper extremity function for ADL's. Plan of Care: ADL Retraining, Functional Mobility, Group Exercise/Act as Ind, UE Funct Exercise/Act, UE Neuromus Re-Ed/Coord, W/C Management Training Treatment Duration: Mar 10, 2022 Frequency: At least 5 of 7 days/Wk (IRF) Estimated Hrs Per Day: 1.5 hours per day Agreement: Yes Rehab Potential: Fair Time/GCodes Start Time: 13:30 Stop Time: 14:00 Total Time Billed (hr/min): 30 Billed Treatment Time 1, Ex (15'), FA (15') OCTAVIA ORLANDO OT Feb 21, 2022 14:09
--- NOTE | 2022-02-21 15:36 | Physical Therapy Daily Note ---
PT Daily Note-Current Subjective Patient sitting in chair upon PT arrival, agreeable to treatment. Transfers SCALE: Activities may be completed with or without assistive devices. 8-Hdexclfrye-auouork completes the activity by him/herself with no assistance from a helper. 5-Set-up or Clean-up Assistance-helper sets up or cleans up; patient completes activity. [place] assists only prior to or following the activity. 4-Supervision or Touching Assistance-helper provides verbal cues and/or touching/steadying and/or contact guard assistance as patient completes activi ty. Assistance may be provided throughout the activity or intermittently. 3-Partial/Moderate Assistance-helper does LESS THAN HALF the effort. [place] lifts, holds or supports trunk or limbs, but provides less than half the effort. 2-Substantial/Maximal Assistance-helper does MORE THAN HALF the effort. [place] lifts or holds trunk or limbs and provides more than half the effort. 1-Zmodsqstq-lbxhhf does ALL the effort. Patient does none of the effort to complete the activity. Or, the assistance of 2 or more helpers is required for the patient to complete the activity. If activity was not attempted, code reason: 7-Patient Refused. 9-Not Applicable-not attempted and the patient did not perform the activity before the current illness, exacerbation or injury. 10-Not Attempted due to Environmental Limitations-(lack of equipment, weather restraints, etc.). 88-Not Attempted due to Medical Conditions or Safety Concerns. Roll Left & Right (QC): 6 Sit to Lying (QC): 6 Lying to Sitting/Side of Bed(Q: 4 Sit to Stand (QC): 3 Chair/Vog-gy-Nyvkw Xfer(QC): 2 Toilet Transfer (QC): 3 Car Transfer (QC): 3 Gait Training Does the Patient Walk?: No and Walking Goal IS indicated Walk 10 feet (QC): 88 Walk 50 ft with 2 Turns(QC): 88 Walk 150 ft (QC): 88 Walking 10ft/uneven surface-QC: 88 Wheelchair Training Does the Pt Use a Wheelchair?: Yes Wheel 50 ft with 2 turns (QC): 6 Wheel 150 ft (QC): 4 Type of Wheelchair: Manual Stair Training 1 Step (curb) (QC): 88 4 Steps (QC): 88 12 Steps (QC): 88 Balance Picking up an Object (QC): 88 Assessment Current Status: Fair Progress Patient tolerated treatment fair. Demonstrates mod/max A for all transfers. Has difficulty achieving TKE with right LE. Patient lets go of FWW and attempts to reach for the bed rail while right Knee flexing. Patient requires max A for chair to bed to avoid falling. Patient propels w/c 350 feet with SBA and verbal cues for objects and safety. Patient in w/c post treatment with all needs met, nursing notified, call light in reach. PT Short Term Goals Short Term Goals Time Frame: Feb 17, 2022 Roll Left & Right: 6 Sit to lyin (Batsheva) Lying to sitting on side of be: 3 (Batsheva) Sit to stand: 3 (Batsheva) Chair/blw-qf-evknp transfer: 3 Walk 10 feet: 3 (Batsheva) PT [facility] Goals [facility] Goals PT [facility] Goals Time Frame: Mar 03, 2022 Roll Left & Right (QC): 6 Sit to Lying (QC): 4 (CGA) Lying-Sitting on Side/Bed(QC): 4 (CGA) Sit to Stand (QC): 4 (CGA) Chair/Nrn-ek-Ksaii Xfer(QC): 4 (CGA) Toilet Transfer (QC): 4 (CGA) Car Transfer (QC): 4 (CGA) Does the Patient Walk: Yes Walk 10 feet (QC): 4 (CGA) Walk 50ft with 2 Turns (QC): 88 Walk 150 ft (QC): 88 Walking 10ft on Uneven Surface: 4 (CGA) 1 Step (curb) (QC): 88 4 Steps (QC): 88 12 Steps (QC): 88 Picking up an Object (QC): 4 (CGA) Wheel 50 feet with 2 turns (QC: 6 Wheel 150 feet: 6 PT Plan Treatment/Plan Treatment Plan: Continue Plan of Care Treatment Plan: Bed Mobility, Education, Functional Activity Lalit, Functional Strength, Group Therapy, Gait, Safety, Therapeutic Exercise, Transfers Treatment Duration: Mar 03, 2022 Frequency: At least 5 of 7 days/Wk (IRF) Estimated Hrs Per Day: 1.5 hours per day Patient and/or Family Agrees t: Yes Safety Risks/Education Patient Education: Transfer Techniques Teaching Recipient: Patient Teaching Methods: Demonstration, Discussion Response to Teaching: Verbalize Understanding, Return Demonstration Time/GCodes Time In: 1430 Time Out: 1500 Total Billed Treatment Time: 30 Total Billed Treatment Visit, FRANKIE W/C CANDI ANGELES PT Feb 21, 2022 15:36
--- NOTE | 2022-02-21 17:28 | Wound Care Assessment ---
Wound Care Assessment Date Seen by Provider: Feb 21, 2022 Time Seen by Provider: 15:30 Chief Complaint L. BKA incision R. heel ulcer R. great toe stump ulcer HPI This pleasant 71 year old gentleman with h/o severe PAD was admitted to inpatient rehab following BKA. Per patient and , surgery on 02-07-22. He had a long h/o PAD with intervention/angioplasty per Dr. Sánchez in recent past. His wound healing will be complicated by PAD, DM2, obesity, CAD and anemia (post-operative). Unstageable PU to right heel evaluated today. This is unch anged from last week. There is stable eschar present. Continue current plan for dressings and offloading. He had arterial intervention on this side as well. Per patient, ichemic R. great toe that "fell off" on its own in recent past. Stump site with callous and slough. No obvious bone exposed today on exam but this was limited at bedside. This will require wound care following discharge. He does have a history with wound care at [place]. He prefers not to return to that facility. Will arrange for follow up with our clinic. Past Medical History: Admits Diabetes Type II, Admits Heart Disease, Admits Peripheral Artery Disease PVD, atrial fibrillation Smoking Status: Never a Smoker Alcohol Use: Denies Use Exam Vital Signs Date Time Temp Pulse Resp B/P (MAP) Pulse Ox O2 Delivery O2 Flow Rate FiO2 02/21/22 08:39 Room Air 02/21/22 07:19 36.3 74 16 116/81 (93) 95 Capillary Refill : General Appearance: obese HEENT: other (hearing normal) Neck: full range of motion Respiratory: no respiratory distress, no accessory muscle use Extremities: other (Left BKA with concern for flap failure) Neurologic/Psychiatric: alert, normal mood/affect, oriented x 3 Skin: cool (L. BKA stump), pallor (left BKA site) Wound assessment: 1. R. great toe stump site 2x2x0.2cm. The epithelialization is small. There is no tunneling or undermining. Drainage is small and serous. Granulation is small and pink, Necrotic is large and slough/eschar. Margins are epibole. 2. R. heel: 0.5x1.5x0.1 cm. The epithelialization is none. There is no tunneling or undermining. Drainage is none. Granulation is none. Necrotic is large and eschar. The margins are flat. 3. Stump site not examined today Results Laboratory Tests 02/20/22 20:10: Glucometer 129H 02/21/22 05:07: White Blood Count 11.2H, Red Blood Count 4.19L, Hemoglobin 10.4L, Hematocrit 35L , Mean Corpuscular Volume 83, Mean Corpuscular Hemoglobin 25, Mean Corpuscular Hemoglobin Concent 30L, Red Cell Distribution Width 19.1H, Platelet Count 327, Mean Platelet Volume 11.7, Immature Granulocyte % (Auto) 0, Neutrophils (%) (Auto) 75, Lymphocytes (%) (Auto) 13, Monocytes (%) (Auto) 10, Eosinophils (%) (Auto) 1, Basophils (%) (Auto) 0, Neutrophils # (Auto) 8.4H, Lymphocytes # (Auto) 1.4, Monocytes # (Auto) 1.1H, Eosinophils # (Auto) 0.2, Basophils # (Auto) 0.1, Immature Granulocyte # (Auto) 0.0, Sodium Level 134L, Potassium Level 3.7, Chloride Level 97L, Carbon Dioxide Level 23, Anion Gap 14, Blood Urea Nitrogen 29H, Creatinine 0.92, Estimat Glomerular Filtration Rate 89, BUN/Creatinine Ratio 32, Glucose Level 100, Calcium Level 9.7, Corrected Calcium 10.0, Total Bilirubin 0.5, Aspartate Amino Transf (AST/SGOT) 21, Alanine Aminotransferase (ALT/SGPT) 17, Alkaline Phosphatase 59, Total Protein 7.3, Albumin 3.6 02/21/22 10:59: Glucometer 157H 02/21/22 15:27: Glucometer 171H Assessment/Plan/Dx Assessment: 1. L. BKA incision 2. PAD s/p angioplasty 3. DM2 with hyperglycemia 4. Anemia (post-operative) 5. Lymphedema 6. Unstageable pressure ulcer R. heel with stable eschar 7. Non-pressure ulcer R. 1st toe stump site Plan: 1. Cleanse daily with saline or wound cleanser. Apply xeroform to incision and blister. Cover with kerlix and stump sock. Change daily. 2. Monitor closely due to concern for flap failure. Clarify date of staple removal and follow up from surgeon prior to d/c home 3. Good glycemic control per primary team 4. Per primary team 5. Stump sock. I would avoid tightly compressive braces to stump at this time. Cool to touch and at risk for flap failure. 6. [place] liberally daily with betadine. Cover with BFD and use Primo to further off load in bed. Would advise surgical shoe for off loading upon d/c (when estab lished in outpatient wound care clinic) 7. Cleanse daily with wound cleanser or saline. Apply thick layer of santyl to wound bed. Cover with gauze and tape. Change daily. 8. Outpatient wound care follow up is adviseable. DIAMANTE MCNULTY MD Feb 21, 2022 17:28
[2022-02-21] MEDS: COLLAGENASE 30 GM (SANTYL) TUBE TP SCH (18:46)
[2022-02-21 19:53] VITALS: BP 131/57
--- NOTE | 2022-02-22 05:56 | PM&R Progress Note ---
Subjective HPI/CC On Admission Date Seen by Provider: Feb 22, 2022 Time Seen by Provider: 09:00 Subjective/Events-last exam 02/22/2022: 02/21/2022: Pt is doing really well Left leg could very well have to be transitioned to an AKA Wants to go home soon No other concerns Pain is still an issue Gabapentin is giving him hallucinations so we'll stop that 02/20/2022: Patient doing really well Blood sugars are perfect Pain is an issue 02/19/2022: Patient doing really well Blood sugars reviewed Pain is improved 02/18/2022: Pt doing pretty well Is more comfortable sitting on the side of the bed leaned over on a pillow and his leg doesn't hurt as much Blood sugars are much improved with the Amaryl 1mg and Metformin 500mg BID 02/17/2022: Pt is doing a lot better Loose bowel movement noted Gabapentin 200 mg TID has given much improvement in pain No other falls Checked meds and labs 02/16/2022: Pt is doing well Dr. Perez thought the leg looked better today and didn't require surgery Will take Melatonin tonight to help him sleep Bowels moved yesterday Sugars are elevated so will start Amaryl 1 mg to the Metformin 500 BID started yesterday 02/15/2022: Pt is doing really well Bowels moved two days ago Dr. Wade did treat his toenails Dr. Guido wants a general surgeon to debride it or the pt can go back over to Dr. Guido at [place] to have that done with his leg 02/14/2022: Patient doing a lot better Complaining of pain but declines any pain medication Sugar is much improved after hypoglycemia Bowels are moving now at bedside 02/13/2022: Patient doing a lot better Blood sugars 164, 113 Declines to take morphine for addiction potential really helps the patient 02/12/2022: Patient doing pretty well at bedside Blood sugar is 99 after being very low Suppository produced a small bowel movement so we will initiate more laxatives or Holding metoprolol due to low blood pressure Holding losartan as of yesterday due to low blood pressure Mag citrate is being used for constipation today 02/11/2022: Patient doing really well Blood sugars reviewed and holding metformin and oral hypoglycemic agent due to hypoglycemia Pain is controlled Laxatives given Checked meds and labs Review of Systems General: Fatigue, Malaise Musculoskeletal: leg pain Objective Exam Vital Signs Vital Signs Date Time Temp Pulse Resp B/P (MAP) Pulse Ox O2 Delivery O2 Flow Rate FiO2 02/22/22 09:00 Room Air 02/22/22 08:00 37.7 89 20 133/76 (95) 91 Capillary Refill : General Appearance: No Apparent Distress, WD/WN, Chronically ill HEENT: PERRL/EOMI, Normal ENT Inspection, Pharynx Normal Neck: Full Range of Motion, Normal Inspection, Non Tender, Supple, Carotid Bruit Respiratory: Chest Non Tender, Lungs Clear, Normal Breath Sounds, No Accessory Muscle Use, No Respiratory Distress Cardiovascular: No Edema, No Gallop, No JVD, No Murmur, Normal Peripheral Pulses, Irregularly Irregular Gastrointestinal: Normal Bowel Sounds, No Organomegaly, No Pulsatile Mass, Non Tender, Soft Back: Normal Inspection, No CVA Tenderness, No Vertebral Tenderness Extremity: Normal Capillary Refill, Normal Inspection, Normal Range of Motion, Non Tender, No Calf Tenderness, No Pedal Edema Neurologic/Psychiatric: Alert, Oriented x3, Normal Mood/Affect, bag bailer II-XII Norm as Tested, Abnormal Gait, Motor Weakness (left sided lower extremity BKA) Skin: Normal Color, Warm/Dry Lymphatic: No Adenopathy Results/Procedures Lab Patient resulted labs reviewed. FIM Transfers Therapy Code Descriptions/Definitions Functional [place] Measure: 0=Not Assessed/NA 4=Minimal Assistance 1=Total Assistance 5=Supervision or Setup 2=Maximal Assistance 6=Modified [place] 3=Moderate Assistance 7=Complete IndependenceSCALE: Activities may be completed with or without assistive devices. 7-Rhbudmrcrd-kijuuwr completes the activity by him/herself with no assistance from a helper. 5-Set-up or Clean-up Assistance-helper sets up or cleans up; patient completes activity. [place] assists only prior to or following the activity. 4-Supervision or Touching Assistance-helper provides verbal cues and/or touching/steadying and/or contact guard assistance as patient completes activity. Assistance may be provided throughout the activity or intermittently. 3-Partial/Moderate Assistance-helper does LESS THAN HALF the effort. [place] lifts, holds or supports trunk or limbs, but provides less than half the effort. 2-Substantial/Maximal Assistance-helper does MORE THAN HALF the effort. [place] lifts or holds trunk or limbs and provides more than half the effort. 2-Mogdhcnmo-vtryyx does ALL the effort. Patient does none of the effort to comp lete the activity. Or, the assistance of 2 or more helpers is required for the patient to complete the activity. If activity was not attempted, code reason: 7-Patient Refused. 9-Not Applicable-not attempted and the patient did not perform the activity before the current illness, exacerbation or injury. 10-Not Attempted due to Environmental Limitations-(lack of equipment, weather restraints, etc.). 88-Not Attempted due to Medical Conditions or Safety Concerns. Roll Left to Right (QC): 6 Sit to Lying (QC): 6 Sit to Stand (QC): 3 Chair/Nfw-ad-Qrgav Xfer(QC): 2 Car Transfer (QC): 3 Gait Training Does the Patient Walk?: No and Walking Goal IS indicated Walk 10 feet (QC): 88 Walk 50 ft with 2 Turns(QC): 88 Walk 150 ft (QC): 88 Walking 10ft/uneven surface-QC: 88 Gait Assistive Device: Parallel Bars Wheelchair Training Does the Pt Use a Wheelchair?: Yes Distance: 150'x2 Wheel 50 ft with 2 turns (QC): 6 Wheel 150 ft (QC): 4 Type of Wheelchair: Manual Stair Training 1 Step (curb) (QC): 88 4 Steps (QC): 88 12 Steps (QC): 88 Balance Picking up an Object (QC): 88 ADL-Treatment Eating (QC): 5 (Per pt report, he needs assitance to open small packages 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 Shower completed 100% seated) Upper Body Dressing (QC): 3 (Min A overall. Pt required v/c's to recall technique taught last week. Assistance pulling shirt down in back.) Lower Body Dressing (QC): 1 (Pt able to doff pants while seated, needed min A to thread legs through pants, and was able to hike pants to buttocks, assist x2 to hike remainder of way in stand) On/Off Footwear (QC): 3 (Mod A overall. Pt able to doff gripper sock, but required total A to don compression sock. Pt able to don sock and shoe with min A.) Toileting Hygiene (QC): 1 (Assist x2 to hike pants up ) Toilet Transfer (QC): 3 Assessment/Plan Assessment and Plan Assess & Plan/Chief Complaint Assessment: GEORGINA 02/07/22 Severe PVD PAF OAC HTN HLP DM Hypothyroidism Hypoglycemia holding metformin and glimepiride Constipation Plan: Home meds SSI PT OT Pain control BM treatment 02/11/2022: Hold diabetic meds due to hypoglycemia Pain control Bowel regimen 02/12/2022: BM regimen Monitor glucose 02/13/2022: Monitor sugar Hypoglycemia high risk 02/14/2022: Monitor closely Pain control Sugar monitoring 02/15/2022: Consult Dr Perez Restart Metformin 02/16/2022: Appreciate Dr Perez Add Amaryl 02/17/2022: Improved sugars Increase Gabapentin slowly 02/18/2022: Pain is improved Supportive care 02/19/2022: Pain is improved Blood sugar improved 02/20/2022: Blood sugars perfect 02/21/2022: Monitor closely Hold Gabapentin 02/22/2022: (1) Amputation of left lower extremity below knee XIOMARA DICKENS DO Feb 22, 2022 05:56
[2022-02-22] MEDS: inSUlin ASPART (NovoLOG) 1 UNIT/0.01 ML (CHARGE PER UNIT) SC SCH ×3 (06:01→16:16)
[2022-02-22] MEDS: GLIMEPIRIDE 1 MG (AMARYL) TAB PO SCH (06:35)
[2022-02-22] MEDS: metFORMIN 500 MG (GLUCOPHAGE) TAB PO SCH ×2 (06:36→17:08)
[2022-02-22] MEDS: LEVOTHYROXINE 100 MCG (LEVOTHROID) TAB PO SCH (06:36)
[2022-02-22 08:00] VITALS: BP 133/76
[2022-02-22] MEDS: CLOPIDOGREL 75 MG (PLAVIX) TABLET PO SCH (08:33)
[2022-02-22] MEDS: PANTOPRAZOLE 40 MG (PROTONIX) TAB PO SCH (08:33)
[2022-02-22] MEDS: AMIODARONE 200 MG (CORDARONE) TAB PO SCH (08:33)
[2022-02-22] MEDS: KCL 20 MEQ TAB (K-DUR) PO SCH (08:33)
[2022-02-22] MEDS: APIXABAN 5 MG (ELIQUIS) TABLET PO SCH (08:33)
[2022-02-22] MEDS: FUROSEMIDE 40 MG (LASIX) TAB PO SCH (08:33)
[2022-02-22] MEDS: GABAPENTIN 100 MG (NEURONTIN) CAP PO SCH (08:34)
[2022-02-22] MEDS: VITAMIN D3 25 MCG (1,000 UNITS) TABLET PO SCH (08:34)
[2022-02-22] MEDS: SENNA W/DOCUSATE (SENOKOT S) TABLET PO SCH (08:39)
[2022-02-22] MEDS: polyethylene glycoL POWDER 17 GM (MIRALAX) PACK PO SCH (08:39)
[2022-02-22] MEDS: DOCUSATE SODIUM 100 MG (COLACE) CAP PO SCH (08:39)
--- NOTE | 2022-02-22 08:55 | Diagnostic Imaging Report ---
Left shoulder at 804h. INDICATION: Shoulder pain 3 views were obtained. There are no prior left shoulder examinations available for comparison. 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 Those findings are again evident on this study. The space between the acromion and the humeral head is markedly narrowed and most likely the rotator cuff has been completely torn. If further imaging is desired, then MRI would be recommended. There is only moderate degenerative disease of the glenohumeral joint. There is no fracture identified. IMPRESSION: 1. There is no evidence for an acute bony abnormality. 2. 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 Recommendations as above. Dictated by: Dictated on workstation # [id number]
--- NOTE | 2022-02-22 08:56 | Diagnostic Imaging Report ---
Left clavicle at 802h. INDICATION: Clavicle and shoulder pain. 2 Views were obtained. There are no prior studies available for comparison. There is no fracture, dislocation or acute bony abnormality evident. 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 There are also calcifications in the soft tissues along the inferior aspect of the distal clavicle. This may be secondary to calcific tendinitis and I suspect that the rotator cuff has been torn. The soft tissues are unremarkable. IMPRESSION: 1. There is no evidence for an acute bony abnormality. 2. There are degenerative changes involving the acromioclavicular joint and there appears to have been injury to the rotator cuff. A left shoulder exam is pending for further study. Dictated by: Dictated on workstation # [id number]
[2022-02-22] MEDS ORDERED: COLLAGENASE 30 GM (SANTYL) TUBE TP SCH (09:00)
--- NOTE | 2022-02-22 10:05 | Consultation - Ortho ---
Consult - Ortho Subjective Date of Exam 02/22/22 Chief Complaint Left Shoulder Pain after Fall HPI/Events since last exam had fall landing on left shoulder, states he landed directly on shoulder, difficulty raising arm afterwards, history of 2 prior injuries to shoulder and at least one procedure Medical, Surgical History see admit Social History see admit Family History see admit Review of Systems - Allergies: Coded Allergies: lisinopril (Verified Allergy, Unknown, 02/10/22) niacin (Verified Allergy, Unknown, 02/10/22) oxycodone (Verified Allergy, Unknown, 02/10/22) rivaroxaban (Verified Allergy, Unknown, 02/10/22) Uncoded Allergies: CI Pigment Blue 63 (Adverse Reaction, Severe, Itching, 02/10/22) Home Meds Reported Medications Docusate Sodium (Docusate Sodium) 100 Mg Capsule, 100 MG PO BID PRN for CONSTIPATION-1ST LINE, CAP 02/17/22 Simvastatin (Simvastatin) 20 Mg Tablet, 20 MG PO HS, TAB 02/17/22 Levothyroxine Sodium (Levothyroxine Sodium) 100 Mcg Tablet, 100 MCG PO DAILY, TAB 02/10/22 Pantoprazole Sodium (Pantoprazole Sodium) 40 Mg Tablet.dr, 40 MG PO DAILY, TAB 02/10/22 Clopidogrel Bisulfate (Plavix) 75 Mg Tablet, 75 MG PO 1200, TAB 02/10/22 Hydrocodone/Acetaminophen (Hydrocodone-Acetamin 10-325 mg) 10 Mg-325 Mg Tablet, 1 EACH PO Q6H PRN for PAIN-MODERATE (5-7), TAB 02/10/22 Metoprolol Succinate (Metoprolol Succinate) 25 Mg Tab.er.24h, 25 MG PO DAILY, TAB 02/10/22 Apixaban (Eliquis) 5 Mg Tablet, 5 MG PO BID, TAB 02/10/22 Amiodarone HCl (Amiodarone HCl) 200 Mg Tablet, 200 MG PO DAILY, TAB 02/10/22 Furosemide (Furosemide) 80 Mg Tablet, 80 MG PO DAILY, TAB 02/10/22 Losartan Potassium (Losartan Potassium) 50 Mg Tablet, 50 MG PO DAILY, TAB 02/10/22 Potassium Chloride (K-Tab ER) 20 Meq Tablet.er, 20 MEQ PO TID, TAB LAST FILLED 04-11-2021 #90/30 DAY SUPPLY 02/10/22 Cholecalciferol (Vitamin D3) (Vitamin D3) 25 Mcg (1000 Unit) Capsule, 25 MCG PO DAILY, CAP 02/10/22 Metformin HCl (Metformin HCl) 500 Mg Tablet, 500 MG PO QID, TAB 02/10/22 Glimepiride (Glimepiride) 4 Mg Tablet, 4 MG PO BID, TAB 02/10/22 Objective Exam Left shoulder: tender over AC joint as well as anterior shoulder, flexion to 40 degrees, abduction 20 degrees, sensation grossly intact to light touch, radial pulse palpable Vital Signs Vital Signs Date Time Temp Pulse Resp B/P (MAP) Pulse Ox O2 Delivery O2 Flow Rate FiO2 02/22/22 08:00 37.7 89 20 133/76 (95) 91 Room Air 02/21/22 20:50 93 Room Air 02/21/22 19:53 36.9 89 20 131/57 (81) 93 Room Air Lab Results Laboratory Tests 02/21/22 10:59: Glucometer 157H 02/21/22 15:27: Glucometer 171H 02/21/22 20:05: Glucometer 154H 02/22/22 05:55: Glucometer 149H Imaging Multiple views of left shoulder and clavicle dated 02/22/22 were reviewed and demonstrated significant degenerative change with superior migration of the humeral head Assessment and Plan Assessment Left Rotator Cuff Arthropathy, 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
[2022-02-22] MEDS: COLLAGENASE 30 GM (SANTYL) TUBE TP SCH (10:26)
[2022-02-22] MEDS ORDERED: METF-397 PO (10:50)
[2022-02-22] MEDS ORDERED: GLMP1T PO (10:50)
[2022-02-22] MEDS ORDERED: HYDR-3820 PO (10:50)
--- NOTE | 2022-02-22 10:55 | D/C HH Face to Face Order ---
D/C Face to Face Orders Reconcile Patient Problems Problems Reviewed?: Yes Instructions for Patient Via [employer] [email or web address], Patient Instructions/FollowUp: PCP 1 week Physician to follow Patient: PCP Discharge Diet for Home: No Restrictions Patient Problems: Left BKA Patient Data-Allergies,Ht & Wt Patient Allergies: Coded Allergies: gabapentin (Verified Allergy, Unknown, 02/22/22) nightmares lisinopril (Verified Allergy, Unknown, 02/10/22) niacin (Verified Allergy, Unknown, 02/10/22) oxycodone (Verified Allergy, Unknown, 02/10/22) rivaroxaban (Verified Allergy, Unknown, 02/10/22) Uncoded Allergies: CI Pigment Blue 63 (Adverse Reaction, Severe, Itching, 02/10/22) Home Health Need/Face to Face Date of Face to Face: Feb 22, 2022 Clinical Findings: Generalized weakness and fatigue, Instability, Muscle weakness, Unsteady gait I have seen Pt [id number]: Yes Discharged To: Home Diagnosis/Conditions: Left BKA Patient is Homebound due to: CognItive deficits, [place] fall risk due to i nstabilty, Pain w/ambulation Homebound Status Due to the above stated illness, injury or surgical procedure (medical condition or diagnosis) and associated clinical findings, the patient is homebound because of his/her inability to leave home except with aid of a supportive device and/or person AND leaving the home requires a considerable and taxing effort or is medically contraindicated. Pt req the following assistanc: Wheelchair Home Health Nursing Orders Home Health Services Order: Nursing Services, Teaching Pastor-Evaluate & Treat, Physical Therapy-Evaluate & Treat, Wound Care-Eval/Treat Certify Stmt I certify that this patient is under my care and that I, a nurse practitioner or a physician; a embroidery assistant working with me, had a face to face encounter that - meets the physician face to face encounter requirements with this patient as dated. XIOMARA DICKENS DO Feb 22, 2022 10:55
--- NOTE | 2022-02-22 10:56 | Discharge Summary ---
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/07/22 Severe PVD PAF OAC HTN HLP DM Hypothyroidism Hypoglycemia holding metformin and glimepiride Constipation Discharge Summary Discharge Physical Examination Allergies: Coded Allergies: gabapentin (Verified Allergy, Unknown, 02/22/22) nightmares lisinopril (Verified Allergy, Unknown, 02/10/22) niacin (Verified Allergy, Unknown, 02/10/22) oxycodone (Verified Allergy, Unknown, 02/10/22) rivaroxaban (Verified Allergy, Unknown, 02/10/22) Uncoded Allergies: CI Pigment Blue 63 (Adverse Reaction, Severe, Itching, 02/10/22) Vitals & I&Os Vital Signs Date Time Temp Pulse Resp B/P (MAP) Pulse Ox O2 Delivery O2 Flow Rate FiO2 02/22/22 17:47 37.7 89 20 133/76 91 Room Air General Appearance: Alert, Oriented X3, Cooperative Respiratory: Clear to Auscultation Cardiovascular: Regular Rate Hospital Course Was the Problem List Reviewed?: Yes Pt had a lengthy hospital course for 13 days after he was admitted after left b elow the knee amputation. Dr. Perez was consulted on the stump care. He ultimately evaluated that to not require immediate surgery but could ultimately require an AKA. Dr. Palafox was consulted after he had a fall the night before discharge and tore his left rotator cuff that he had problems with before. No clavicle fracture. Appreciate Dr. Palafox. He recommended PT. At this current time pt had all medications reconciled and reviewed. I did lower the dose on Metformin and Amaryl. His blood sugars remained very good. Labs (last 24 hrs) Laboratory Tests 02/10/22 17:10: Glucometer 223H 02/10/22 20:26: Glucometer 160H 02/11/22 05:43: White Blood Count 9.9, Red Blood Count 4.38, Hemoglobin 10.8L, Hematocrit 36L, Mean Corpuscular Volume 83, Mean Corpuscular Hemoglobin 25, Mean Corpuscular Hemoglobin Concent 30L, Red Cell Distribution Width 19.4H, Platelet Count 228, Mean Platelet Volume 11.4, Immature Granulocyte % (Auto) 0, Neutrophils (%) (Auto) 78H, Lymphocytes (%) (Auto) 12, Monocytes (%) (Auto) 9, Eosinophils (%) (Auto) 1, Basophils (%) (Auto) 0, Neutrophils # (Auto) 7.7, Lymphocytes # (Auto) 1.2, Monocytes # (Auto) 0.9, Eosinophils # (Auto) 0.1, Basophils # (Auto) 0.0, Immature Granulocyte # (Auto) 0.0, Sodium Level 139, Potassium Level 3.7, Chloride Level 100, Carbon Dioxide Level 26, Anion Gap 13, Blood Urea Nitrogen 19H, Creatinine 0.94, Estimat Glomerular Filtration Rate 87, BUN/Creatinine Ratio 20, Glucose Level 64L, Calcium Level 9.3, Corrected Calcium 9.9, Total Bilirubin 0.5, Aspartate Amino Transf (AST/SGOT) 26, Alanine Aminotransferase (ALT/SGPT) 13, Alkaline Phosphatase 56, Total Protein 7.3, Albumin 3.3 02/11/22 11:14: Glucometer 171H 02/11/22 17:08: Glucometer 58*L 02/11/22 20:27: Glucometer 61L 02/11/22 20:50: Glucometer 69L 02/11/22 22:20: Glucometer 96 02/12/22 05:10: Glucometer 65L 02/12/22 11:56: Glucometer 99 02/12/22 17:07: Glucometer 154H 02/12/22 20:47: Glucometer 164H 02/13/22 05:37: Glucometer 113H 02/13/22 11:36: Glucometer 165H 02/13/22 15:21: Glucometer 199H 02/13/22 20:09: Glucometer 184H 02/14/22 05:31: Glucometer 97 02/14/22 11:16: Glucometer 193H 02/14/22 15:41: Glucometer 224H 02/14/22 20:09: Glucometer 187H 02/15/22 05:40: Glucometer 147H 02/15/22 10:59: Glucometer 181H 02/15/22 15:17: Glucometer 180H 02/15/22 20:11: Glucometer 180H 02/16/22 05:34: Glucometer 141H 02/16/22 10:46: Glucometer 243H 02/16/22 15:53: Glucometer 171H 02/16/22 20:24: Glucometer 126H 02/17/22 06:04: Glucometer 101 02/17/22 11:21: Glucometer 141H 02/17/22 15:38: Glucometer 150H 02/17/22 20:27: Glucometer 140H 02/18/22 06:06: Glucometer 87 02/18/22 10:59: Glucometer 104 02/18/22 15:28: Glucometer 115H 02/18/22 20:39: Glucometer 123H 02/19/22 05:55: Glucometer 112H 02/19/22 11:08: Glucometer 126H 02/19/22 15:13: Glucometer 115H 02/19/22 20:02: Glucometer 131H 02/20/22 05:34: Glucometer 94 02/20/22 11:05: Glucometer 194H 02/20/22 15:37: Glucometer 125H 02/20/22 20:10: Glucometer 129H 02/21/22 05:07: White Blood Count 11.2H, Red Blood Count 4.19L, Hemoglobin 10.4L, Hematocrit 35L , Mean Corpuscular Volume 83, Mean Corpuscular Hemoglobin 25, Mean Corpuscular Hemoglobin Concent 30L, Red Cell Distribution Width 19.1H, Platelet Count 327, Mean Platelet Volume 11.7, Immature Granulocyte % (Auto) 0, Neutrophils (%) (Auto) 75, Lymphocytes (%) (Auto) 13, Monocytes (%) (Auto) 10, Eosinophils (%) (Auto) 1, Basophils (%) (Auto) 0, Neutrophils # (Auto) 8.4H, Lymphocytes # (Auto) 1.4, Monocytes # (Auto) 1.1H, Eosinophils # (Auto) 0.2, Basophils # (Auto) 0.1, Immature Granulocyte # (Auto) 0.0, Sodium Level 134L, Potassium Level 3.7, Chloride Level 97L, Carbon Dioxide Level 23, Anion Gap 14, Blood Urea Nitrogen 29H, Creatinine 0.92, Estimat Glomerular Filtration Rate 89, BUN/Creatinine Ratio 32, Glucose Level 100, Calcium Level 9.7, Corrected Calcium 10.0, Total Bilirubin 0.5, Aspartate Amino Transf (AST/SGOT) 21, Alanine Aminotransferase (ALT/SGPT) 17, Alkaline Phosphatase 59, Total Protein 7.3, Albumin 3.6 02/21/22 10:59: Glucometer 157H 02/21/22 15:27: Glucometer 171H 02/21/22 20:05: Glucometer 154H 02/22/22 05:55: Glucometer 149H 02/22/22 10:55: Glucometer 149H 02/22/22 15:22: Glucometer 135H Pending Labs Laboratory Tests 02/10/22 17:10: Glucometer 223 02/10/22 20:26: Glucometer 160 02/11/22 05:43: White Blood Count 9.9, Red Blood Count 4.38, Hemoglobin 10.8, Hematocrit 36, Mean Corpuscular Volume 83, Mean Corpuscular Hemoglobin 25, Mean Corpuscular Hemoglobin Concent 30, Red Cell Distribution Width 19.4, Platelet Count 228, Mean Platelet Volume 11.4, Immature Granulocyte % (Auto) 0, Neutrophils (%) (Auto) 78, Lymphocytes (%) (Auto) 12, Monocytes (%) (Auto) 9, Eosinophils (%) (Auto) 1, Basophils (%) (Auto) 0, Neutrophils # (Auto) 7.7, Lymphocytes # (Auto) 1.2, Monocytes # (Auto) 0.9, Eosinophils # (Auto) 0.1, Basophils # (Auto) 0.0, Immature Granulocyte # (Auto) 0.0, Sodium Level 139, Potassium Level 3.7, Chloride Level 100, Carbon Dioxide Level 26, Anion Gap 13, Blood Urea Nitrogen 19, Creatinine 0.94, Estimat Glomerular Filtration Rate 87, BUN/Creatinine Ratio 20, Glucose Level 64, Calcium Level 9.3, Corrected Calcium 9.9, Total Bilirubin 0.5, Aspartate Amino Transf (AST/SGOT) 26, Alanine Aminotransferase (ALT/SGPT) 13, Alkaline Phosphatase 56, Total Protein 7.3, Albumin 3.3 02/11/22 11:14: Glucometer 171 02/11/22 17:08: Glucometer 58 02/11/22 20:27: Glucometer 61 02/11/22 20:50: Glucometer 69 02/11/22 22:20: Glucometer 96 02/12/22 05:10: Glucometer 65 02/12/22 11:56: Glucometer 99 02/12/22 17:07: Glucometer 154 02/12/22 20:47: Glucometer 164 02/13/22 05:37: Glucometer 113 02/13/22 11:36: Glucometer 165 02/13/22 15:21: Glucometer 199 02/13/22 20:09: Glucometer 184 02/14/22 05:31: Glucometer 97 02/14/22 11:16: Glucometer 193 02/14/22 15:41: Glucometer 224 02/14/22 20:09: Glucometer 187 02/15/22 05:40: Glucometer 147 02/15/22 10:59: Glucometer 181 02/15/22 15:17: Glucometer 180 02/15/22 20:11: Glucometer 180 02/16/22 05:34: Glucometer 141 02/16/22 10:46: Glucometer 243 02/16/22 15:53: Glucometer 171 02/16/22 20:24: Glucometer 126 02/17/22 06:04: Glucometer 101 02/17/22 11:21: Glucometer 141 02/17/22 15:38: Glucometer 150 02/17/22 20:27: Glucometer 140 02/18/22 06:06: Glucometer 87 02/18/22 10:59: Glucometer 104 02/18/22 15:28: Glucometer 115 02/18/22 20:39: Glucometer 123 02/19/22 05:55: Glucometer 112 02/19/22 11:08: Glucometer 126 02/19/22 15:13: Glucometer 115 02/19/22 20:02: Glucometer 131 02/20/22 05:34: Glucometer 94 02/20/22 11:05: Glucometer 194 02/20/22 15:37: Glucometer 125 02/20/22 20:10: Glucometer 129 02/21/22 05:07: White Blood Count 11.2, Red Blood Count 4.19, Hemoglobin 10.4, Hematocrit 35, Mean Corpuscular Volume 83, Mean Corpuscular Hemoglobin 25, Mean Corpuscular Hemoglobin Concent 30, Red Cell Distribution Width 19.1, Platelet Count 327, Mean Platelet Volume 11.7, Immature Granulocyte % (Auto) 0, Neutrophils (%) (Auto) 75, Lymphocytes (%) (Auto) 13, Monocytes (%) (Auto) 10, Eosinophils (%) (Auto) 1, Basophils (%) (Auto) 0, Neutrophils # (Auto) 8.4, Lymphocytes # (Auto) 1.4, Monocytes # (Auto) 1.1, Eosinophils # (Auto) 0.2, Basophils # (Auto) 0.1, Immature Granulocyte # (Auto) 0.0, Sodium Level 134, Potassium Level 3.7, Chloride Level 97, Carbon Dioxide Level 23, Anion Gap 14, Blood Urea Nitrogen 29, Creatinine 0.92, Estimat Glomerular Filtration Rate 89, BUN/Creatinine Ratio 32, Glucose Level 100, Calcium Level 9.7, Corrected Calcium 10.0, Total Bilirubin 0.5, Aspartate Amino Transf (AST/SGOT) 21, Alanine Aminotransferase (ALT/SGPT) 17, Alkaline Phosphatase 59, Total Protein 7.3, Albumin 3.6 02/21/22 10:59: Glucometer 157 02/21/22 15:27: Glucometer 171 02/21/22 20:05: Glucometer 154 02/22/22 05:55: Glucometer 149 02/22/22 10:55: Glucometer 149 02/22/22 15:22: Glucometer 135 Discharge Home Medications: Active Scripts Active Amaryl (Glimepiride) 1 Mg Tab 0.5 Mg PO DAILY@629 Metformin HCl 500 Mg Tablet 500 Mg PO BID@ Hydrocodone-Acetamin 10-325 mg (Hydrocodone/Acetaminophen) 10 Mg-325 Mg Tablet 1 Each PO Q8H PRN Reported Docusate Sodium 100 Mg Capsule 100 Mg PO BID PRN Simvastatin 20 Mg Tablet 20 Mg PO HS Levothyroxine Sodium 100 Mcg Tablet 100 Mcg PO DAILY Pantoprazole Sodium 40 Mg Tablet.dr 40 Mg PO DAILY Plavix (Clopidogrel Bisulfate) 75 Mg Tablet 75 Mg PO 1200 Metoprolol Succinate 25 Mg Tab.er.24h 25 Mg PO DAILY Eliquis (Apixaban) 5 Mg Tablet 5 Mg PO BID Amiodarone HCl 200 Mg Tablet 200 Mg PO DAILY Furosemide 80 Mg Tablet 80 Mg PO DAILY Losartan Potassium 50 Mg Tablet 50 Mg PO DAILY K-Tab ER (Potassium Chloride) 20 Meq Tablet.er 20 Meq PO TID LAST FILLED 04-11-2021 #90/30 DAY SUPPLY Vitamin D3 (Cholecalciferol (Vitamin D3)) 25 Mcg (1000 Unit) Capsule 25 Mcg PO DAILY Instructions to patient/family Please see electronic discharge instructions given to patient. Diagnosis/Problems Diagnosis/Problems (1) Amputation of left lower extremity below knee XIOMARA DICKENS DO Feb 22, 2022 10:56
--- NOTE | 2022-02-22 11:02 | Diagnostic Imaging Report ---
PROCEDURE: CT head without contrast. TECHNIQUE: Multiple contiguous axial images were obtained through the brain without the use of intravenous contrast. Auto Exposure Controls were utilized during the CT exam to meet ALARA standards for radiation dose reduction. INDICATION: Fall with head injury. COMPARISON: No prior studies are available for comparison. FINDINGS: The ventricles and sulci are appropriate for the patient's age. No sulcal effacement or midline shift is identified. No acute intra-axial or extra-axial hemorrhage is detected. 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 The cisterns are patent. The visualized paranasal sinuses are clear. IMPRESSION: No acute intracranial process is detected. Dictated by: Dictated on workstation # [id number]
--- NOTE | 2022-02-22 13:18 | Therapy Team Discharge Summary ---
Therapy Discharge Summary Discharge Recommendations Date of Discharge Physical Therapy Roll Left to Right (QC): 6 Sit to Lying (QC): 6 Lying to Sitting/Side of Bed(Q: 4 Sit to Stand (QC): 3 Chair/Csp-fv-Qcxpl Xfer(QC): 2 Toilet Transfer (QC): 1 Car Transfer (QC): 3 Does the Patient Walk: No and Walking Goal IS indicated Mode of Locomotion: Both Anticipated Mode of Locomotion: Both Walk 10 feet (QC): 88 Walk 50 ft with 2 Turns(QC): 88 Walk 150 ft (QC): 88 Walking 10ft on uneven surface: 88 Distance: 2'x3 Gait Assistive Device: Parallel Bars Does the Pt Use a Wheelchair: Yes Wheelchair Distance: 150'x2 Wheel 50 ft with 2 turns (QC): 6 Wheel 150 ft (QC): 4 Type of Wheelchair: Manual 1 Step (curb) (QC): 88 4 Steps (QC): 88 12 Steps (QC): 88 Balance Sitting Static: Fair Balance Sitting Dynamic: Fair Balance-Standing Static: Poor Picking up an Object (QC): 88 Occupational Therapy Pt presented to [facility] s/p L BKA. Prior to admit, he used a w/c for functional mobility and required assistance from spouse with showering, dressing, and footwear, IND with other ADLs. At [facility], pt scored IND in eating, setup with oral care, Min A with showering, Mod A with UBD, Max A with LBD, and Total A with toileting. During his time at [facility], OT txs focused on increasing IND in ADLs, BUE strength and endurance, functional mobility, and overall activity tolerance. Pt made some functional progress towards goals (met showering goal) but did not meet all goals due pt's fear of falling, and reports of RLE issues. OT recommends pt purchase hip kit with wide sock aide. He is being discharged to his home with spouse. D/c from OT at this time. 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 Shower completed 100% seated) Upper Body Dressing (QC): 3 (Min A overall. Pt required v/c's to recall technique taught last week. Assistance pulling shirt down in back.) Lower Body Dressing (QC): 1 (Pt able to doff pants while seated, needed min A to thread legs through pants, and was able to hike pants to buttocks, assist x2 to hike remainder of way in stand) On/Off Footwear (QC): 3 (Mod A overall. Pt able to doff gripper sock, but required total A to don compression sock. Pt able to don sock and shoe with min A.) Toileting Hygiene (QC): 1 (Assist x2 to hike pants up ) PT Manager Recovery Goals Residential Goals PT Manager Recovery Goals Time Frame: Mar 03, 2022 Roll Left to Right (QC): 6 Sit to Lying (QC): 4 (CGA) Lying-Sitting on Side/Bed(QC): 4 (CGA) Sit to Stand (QC): 4 (CGA) Chair/Dnx-mv-Vglnh Xfer(QC): 4 (CGA) Car Transfer (QC): 4 (CGA) Does the Patient Walk: Yes Walk 10 feet (QC): 4 (CGA) Walk 10ft-Uneven Surface(QC): 4 (CGA) Walk 50ft with 2 Turns (QC): 88 Walk 150 ft (QC): 88 Wheel 50 feet with 2 turns (QC: 6 1 Step (curb) (QC): 88 4 Steps (QC): 88 12 Steps (QC): 88 Picking up an Object (QC): 4 (CGA) OT Manager Recovery Goals Manager Recovery Goals Time Frame: Mar 10, 2022 Eating (QC): 6 (not met) Oral Hygiene (QC): 6 (not met) Shower/Bathe Self (QC): 4 (met) Upper Body Dressing (QC): 4 (not met) Lower Body Dressing (QC): 3 (not met) On/Off Footwear (QC): 3 (nt met) Toileting Hygiene (QC): 6 (not met) Toilet/Commode Transfer (QC): 4 (CGA) Additional Goals: 1-Demonstrate ADL Tasks, 2-Verbalize Understanding, 3-ImproveStrength/Lalit 1=Demonstrate adherence to instructed precautions during ADL tasks. 2=Patient will verbalize/demonstrate understanding of assistive devices/modifications for ADL. 3=Patient will improve strength/tolerance for activity to enable patient to perform ADL's. OCTAVIA ORLANDO OT Feb 22, 2022 13:18
--- NOTE | 2022-02-22 14:57 | Therapy Team Discharge Summary ---
Therapy Discharge Summary Discharge Recommendations Date of Discharge Physical Therapy Patient came to rehab following a left BKA. Upon evaluation patient performed rolling with SBA, supine <-> sit mod assist, sit <-> stand and transfers mod assist, car transfer mod assist, ambulate 2' in the parallel bars with mod assist, and could propel a manual WC 150' with SBA. Patient has been performing bed mobility and transfer training, balance and endurance training, functional strengthening, gait training, and education. Patient has made poor progress and has only met his correction goals for rolling and sit -> supine. Now, patient performs rolling with independence, sit to supine independent, supine to sit CGA, sit to stand min/mod assist, transfers max assist, car transfer mod assist, and can propel a manual WC 300' with SBA. Patient is being discharged from this facility today and will be discharged from PT at this time. Roll Left to Right (QC): 6 Sit to Lying (QC): 6 Lying to Sitting/Side of Bed(Q: 4 Sit to Stand (QC): 3 Chair/Huq-es-Mwcpw Xfer(QC): 2 Toilet Transfer (QC): 1 Car Transfer (QC): 3 Does the Patient Walk: No and Walking Goal IS indicated Mode of Locomotion: Both Anticipated Mode of Locomotion: Both Walk 10 feet (QC): 88 Walk 50 ft with 2 Turns(QC): 88 Walk 150 ft (QC): 88 Walking 10ft on uneven surface: 88 Distance: 2'x3 Gait Assistive Device: Parallel Bars Does the Pt Use a Wheelchair: Yes Wheelchair Distance: 150'x2 Wheel 50 ft with 2 turns (QC): 6 Wheel 150 ft (QC): 4 Type of Wheelchair: Manual 1 Step (curb) (QC): 88 4 Steps (QC): 88 12 Steps (QC): 88 Balance Sitting Static: Fair Balance Sitting Dynamic: Fair Balance-Standing Static: Poor Picking up an Object (QC): 88 Occupational Therapy Decreased Activ Tolerance, Decreased UE Strength, Impaired Funct Balance, Impaired I ADL's, Impaired Self-Care Skills, Restricted Funct UE ROM Eating (QC): 5 (Per pt report, he needs assitance to open small packages 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 Shower completed 100% seated) Upper Body Dressing (QC): 3 (Min A overall. Pt required v/c's to recall technique taught last week. Assistance pulling shirt down in back.) Lower Body Dressing (QC): 1 (Pt able to doff pants while seated, needed min A to thread legs through pants, and was able to hike pants to buttocks, assist x2 to hike remainder of way in stand) On/Off Footwear (QC): 3 (Mod A overall. Pt able to doff gripper sock, but required total A to don compression sock. Pt able to don sock and shoe with min A.) Toileting Hygiene (QC): 1 (Assist x2 to hike pants up ) PT Interior Design Director Goals Interior Design Director Goals PT Interior Design Director Goals Time Frame: Mar 03, 2022 Roll Left to Right (QC): 6 Sit to Lying (QC): 4 (CGA) Lying-Sitting on Side/Bed(QC): 4 (CGA) Sit to Stand (QC): 4 (CGA) Chair/Vnl-hg-Qnofo Xfer(QC): 4 (CGA) Car Transfer (QC): 4 (CGA) Does the Patient Walk: Yes Walk 10 feet (QC): 4 (CGA) Walk 10ft-Uneven Surface(QC): 4 (CGA) Walk 50ft with 2 Turns (QC): 88 Walk 150 ft (QC): 88 Wheel 50 feet with 2 turns (QC: 6 1 Step (curb) (QC): 88 4 Steps (QC): 88 12 Steps (QC): 88 Picking up an Object (QC): 4 (CGA) OT Skilled Nursing Goals Interior Design Director Goals Time Frame: Mar 10, 2022 Eating (QC): 6 (not met) Oral Hygiene (QC): 6 (not met) Shower/Bathe Self (QC): 4 (met) Upper Body Dressing (QC): 4 (not met) Lower Body Dressing (QC): 3 (not met) On/Off Footwear (QC): 3 (nt met) Toileting Hygiene (QC): 6 (not met) Toilet/Commode Transfer (QC): 4 (CGA) Additional Goals: 1-Demonstrate ADL Tasks, 2-Verbalize Understanding, 3- ImproveStrength/Lalit 1=Demonstrate adherence to instructed precautions during ADL tasks. 2=Patient will verbalize/demonstrate understanding of assistive devices/modifications for ADL. 3=Patient will improve strength/tolerance for activity to enable patient to perform ADL's. JESSICA FOX PT Feb 22, 2022 14:57
[2022-02-22 17:47] VITALS: BP 133/76
[2022-02-23] MEDS ORDERED: LEVO-130 PO (14:52)
== END 2022-02-22 17:20 | disposition home or self-care (01) | DRG 560 ==
PROVIDERS: ADMIT Internal Medicine; ATTEND Internal Medicine
DX: Z47.81 Encounter for orthopedic aftercare following surgical amputation (principal); R44.2 Other hallucinations; E11.51 Type 2 diabetes mellitus with diabetic peripheral angiopathy without gangrene; E11.65 Type 2 diabetes mellitus with hyperglycemia; I70.222 Atherosclerosis of native arteries of extremities with rest pain, left leg; L89.610 Pressure ulcer of right heel, unstageable; T87.89 Other complications of amputation stump; L97.519 Non-pressure chronic ulcer of other part of right foot with unspecified severity; E11.649 Type 2 diabetes mellitus with hypoglycemia without coma; E11.40 Type 2 diabetes mellitus with diabetic neuropathy, unspecified; K59.00 Constipation, unspecified; I25.10 Atherosclerotic heart disease of native coronary artery without angina pectoris; D64.9 Anemia, unspecified; L85.9 Epidermal thickening, unspecified; S46.012A Strain of muscle(s) and tendon(s) of the rotator cuff of left shoulder, initial encounter; E78.00 Pure hypercholesterolemia, unspecified; I10 Essential (primary) hypertension; N40.0 Benign prostatic hyperplasia without lower urinary tract symptoms; K21.9 Gastro-esophageal reflux disease without esophagitis; M19.91 Primary osteoarthritis, unspecified site; E03.9 Hypothyroidism, unspecified; B35.1 Tinea unguium; Z79.84 Long term (current) use of oral hypoglycemic drugs; Z79.01 Long term (current) use of anticoagulants; Z88.8 Allergy status to other drugs, medicaments and biological substances; T42.6X5A Adverse effect of other antiepileptic and sedative-hypnotic drugs, initial encounter; W19.XXXA Unspecified fall, initial encounter; Y92.239 Unspecified place in hospital as the place of occurrence of the external cause
CPT/HCPCS: 36415; 70450; 73000; 73030; 80053; 82947; 85025

== ENCOUNTER 2022-02-22 18:00 | Inpatient (IN) | payer MEDICARE, OTHER ==
[~2022-02-22] VITALS: Ht 165 cm; Wt 72.5 kg
[~2022-02-22 18:00] MED LIST: AMIO200T65 PO; APIX5TAB PO; ATOR20TA66 PO; CHOL100048 PO; CLOP75TA69 PO; DOCU100C37 PO; FURO80TA3 PO; GLIM4TAB5 PO; GLMP1T PO; HYDR-3820 PO; LEVO100T7 PO; LOSA50TA63 PO; METF-397 PO; MTP25TSR PO; PANT40TA52 PO; POTA-53 PO; SIMV20TA26 PO
[2022-02-23] VITALS (9 sets, daily range): BP systolic 119–157; BP diastolic 46–68
[2022-02-23] MEDS ORDERED: LEVO-130 PO (14:52)
[2022-02-23] MEDS: LACTATED RINGERS 1,000 ML IV SCH ×2 (15:05→16:24)
[2022-02-23] MEDS ORDERED: fentaNYL INJ 100 MCG/2 ML AMP ONE (15:13)
[2022-02-23] MEDS ORDERED: proPOfol 200 MG/20 ML (DIPRIVAN) VIAL IV ONE (15:13)
[2022-02-23] MEDS ORDERED: LIDOCAINE PF 2% 5 ML (XYLOCAINE) VIAL ONE (15:13)
[2022-02-23] MEDS ORDERED: ONDANSETRON 4 MG/2 ML (SDV) Z0FRAN ONE (15:13)
[2022-02-23] MEDS ORDERED: ceFAZolin 2 GM IV Premixed 50 ML IV ONE (15:15)
[2022-02-23] MEDS ORDERED: ESMOLOL 100 MG/10 ML (BREVIBLOC) VIAL ONE (15:53)
[2022-02-23] MEDS ORDERED: HYDROmorphone 2 MG/ML VIAL (DILAUDID) ONE (16:02)
[2022-02-23] MEDS ORDERED: SEVOFLURANE (ULTANE) 15 ML INHAL SOLN ONE (16:33)
--- NOTE | 2022-02-23 16:35 | Progress Note-Post Operative ---
Post-Operative Progess Note Surgeon (s)/International Logistics Coordinator (s) Surgeon GAVIOTA COLEY DO International Logistics Coordinator: Kimberly Pre-Operative Diagnosis WET GANGRENE left BKA stump Post-Operative Diagnosis same Procedure & Operative Findings Date of Procedure 02/23/22 Procedure Performed/Findings Left Above the Knee Amputation Anesthesia Type LMA Estimated Blood Loss Estimated blood loss (mL): appx 20ml Specimens/Packing Specimens Removed portion of left leg above knee and the stump below GAVIOTA COLEY DO Feb 23, 2022 16:35
[2022-02-23] MEDS ORDERED: ALPRAZolam 0.25 MG (XANAX) TAB PO PRN (16:45)
[2022-02-23] MEDS ORDERED: morphine IMMEDIATE RELEASE 15 MG TABLET PO PRN (16:45)
[2022-02-23] MEDS ORDERED: ACETAMINOPHEN 325 MG TABLET PO PRN (16:45)
[2022-02-23] MEDS ORDERED: MELATONIN 3 MG TABLET PO PRN (16:45)
[2022-02-23] MEDS ORDERED: CALCIUM CARBONATE 500 MG (TUMS) TAB.CHEW PO PRN (16:45)
[2022-02-23] MEDS ORDERED: ONDANSETRON 4 MG (ZOFRAN) ORAL DISSOLVE TAB PO PRN (16:45)
[2022-02-23] MEDS ORDERED: MAGNESIUM CITRATE 300 ML BTL PO PRN (16:45)
[2022-02-23] MEDS ORDERED: LOPERAMIDE 2 MG (IMODIUM) TABLET PO PRN (16:45)
[2022-02-23] MEDS ORDERED: DOCUSATE SODIUM 100 MG (COLACE) CAP PO PRN (16:45)
[2022-02-23] MEDS ORDERED: LACTULOSE SYRUP 10GM/15ML (ENULOSE) 30ML UDC PO PRN (16:45)
[2022-02-23] MEDS ORDERED: BISACODYL 10 MG SUPP (DULCOLAX) PR PRN (16:45)
[2022-02-23] MEDS ORDERED: morphine INJ 10 MG/ML 1ML (SYR OR VIAL) IVP ONE (17:00)
[2022-02-23] MEDS ORDERED: HYDROmorphone 2 MG/ML VIAL (DILAUDID) IV ONE (17:00)
[2022-02-23] MEDS ORDERED: ONDANSETRON 4 MG/2 ML (SDV) Z0FRAN IVP PRN (17:00)
[2022-02-23] MEDS: metFORMIN 500 MG (GLUCOPHAGE) TAB PO SCH (17:59)
[2022-02-23] MEDS: inSUlin ASPART (NovoLOG) 1 UNIT/0.01 ML (CHARGE PER UNIT) SC SCH (21:03)
[2022-02-24 03:53] VITALS: BP 116/63
[2022-02-24] MEDS: LACTATED RINGERS 1,000 ML IV SCH (04:51)
[2022-02-24] MEDS: inSUlin ASPART (NovoLOG) 1 UNIT/0.01 ML (CHARGE PER UNIT) SC SCH (05:41)
[2022-02-24] MEDS: metFORMIN 500 MG (GLUCOPHAGE) TAB PO SCH (05:59)
--- NOTE | 2022-02-24 06:04 | OPERATIVE REPORT ---
DATE OF SERVICE: PREOPERATIVE DIAGNOSIS: Wet gangrene of left lsziw-mqx-mivf amputation stump. POSTOPERATIVE DIAGNOSIS: Wet gangrene of left omtaw-qgb-xuqs amputation stump, pending pathology. PROCEDURE: Left tbeaz-fyz-fofc amputation. SURGEON: Gaviota Perez DO. LASERIST: Mohamud Harris DO. ANESTHESIA: LMA. SPECIMEN: Portion of the leg from just above the knee to the stump. BLOOD LOSS: Less than 20 mL. FLUIDS: Per anesthesia. POSTOPERATIVE CONDITION: Stable. INDICATION FOR PROCEDURE: The patient is a 71-year-old male who unfortunately has very bad peripheral vascular disease. He was at outside institution. They were attempting to salvage the leg. They were unable to and then he went for a lduet-new-ursj amputation. Unfortunately, during his stay at the hospital, he stated that they had a knee immobilizer on and then put a compression device from the stump or protection. He said it was too tight, kept telling them to take it off, they did not and then he was sent to rehabilitation. He had taken this device off in rehabilitation, had some skin discoloration, looked like it was dying and the stump initially looked bad at the siri and then got better, and then over the 02/20/2022 weekend it actually got worse, but he still decided to go home because he wanted to see his surgeon. Saw his surgeon today, the surgeon told him it is wet gangrene and needed an svsoi-vcq-qtnc amputation. FINDINGS: The patient had wet gangrene of the stump and wniwz-niu-qteb amputation was performed. He had good blood flow. PROCEDURE NOTE: After informed consent was obtained, the patient was brought to the operating room table, placed on the table in supine position. He had been marked previously. Timeout done. He was sterilely prepped and draped in normal fashion. He had a tourniquet placed on the left leg. Tourniquet was turned on and then started dissecting fishmouth type dissection, first kem this on the leg and then dissected with Bovie electrocautery, going just above the demarcation from the gangrene saying to good healthy tissue cutting through the skin down to subcutaneous tissue with Bovie electrocautery, going medially and laterally, dissecting down through the muscle down to the femur. I then using the ostial elevator to lift the tissue off of the femur up about 4 cm and then came across the femur with a bone saw, continued dissecting through the muscle encountering the vasculature and clamping these with hemostats, continued down through the muscles and down to the back of the skin, then able to take the leg off, passed off the table, tied the large vascular bundle with an 0 Prolene. There was another small vasculature, which were controlled with Bovie electrocautery and some with 0 Vicryl and then once this was done, we released the tourniquet. There, we did place some bone wax. There were a couple of areas of bleeding. These were controlled with Bovie electrocautery. Then, we closed the incision over the bone and then used the muscle to protect it. Using 3-0 Prolene suture, 10 to 12 vertical mattress sutures were used and then in between there used siri, good closure. All the tissue looked healthy. There had been some bleeding, so this was a good sign. A Xeroform gauze was placed as well as then Kerlix and finally Coban and then Mikael wrap. The patient tolerated the procedure. Dr. Harris assisted this case helping to make incisions, close incisions, identify anatomy and hold anatomy out of the way. The patient was then transferred to recovery room in stable condition. Sponge, instrument and needle were correct at the end of the case. Job ID: [id number] DocumentID: [id number] Dictated Date: 02/23/2022 20:05:30 [place] Operator Date: 02/24/2022 06:03:24 Dictated By: GAVIOTA PEREZ DO [email or web address]
[2022-02-24] MEDS ORDERED: GLIMEPIRIDE 1 MG (AMARYL) TAB PO SCH (06:30)
[2022-02-24] MEDS ORDERED: LEVOTHYROXINE 100 MCG (LEVOTHROID) TAB PO SCH (06:30)
[2022-02-24 07:16] LABS: BASOPHILS % (AUTO) 0 % (0-10); EOSINOPHILS % (AUTO) 0 % (0-10); HEMATOCRIT 33 % (40-54); HEMOGLOBIN 9.6 g/dL (13.3-17.7); LYMPHOCYTES # (AUTO) 0.9 10^3/uL (1.0-4.0); LYMPHOCYTES % (AUTO) 6 % (12-44); MEAN CORPUSCULAR HEMOGLOBIN 25 pg (25-34); MEAN CORPUSCULAR HGB CONC 29 g/dL (32-36); MEAN CORPUSCULAR VOLUME 86 fL (80-99); MEAN PLATELET VOLUME 11.3 fL (9.0-12.2); MONOCYTES # (AUTO) 1.2 10^3/uL (0.0-1.0); MONOCYTES % (AUTO) 8 % (0-12); NEUTROPHILS # (AUTO) 12.5 10^3/uL (1.8-7.8); NEUTROPHILS % (AUTO) 85 % (42-75); PLATELET COUNT 268 10^3/uL (130-400); WHITE BLOOD COUNT 14.6 10^3/uL (4.3-11.0)
[2022-02-24 07:44] LABS: ALBUMIN 3.1 GM/DL (3.2-4.5); BILIRUBIN,TOTAL 0.7 MG/DL (0.1-1.0); CALCIUM 9.3 MG/DL (8.5-10.1); CREATININE SERUM 0.76 MG/DL (0.60-1.30); TOTAL PROTEIN 6.8 GM/DL (6.4-8.2)
[2022-02-24 07:56] LABS: ANISOCYTOSIS SLIGHT; HYPOCHROMASIA SLIGHT; LYMPHOCYTES % (MANUAL) 9 %; MICROCYTOSIS SLIGHT; MONOCYTES % (MANUAL) 5 %; NEUTROPHILS % (MANUAL) 86 %
[2022-02-24 08:11] VITALS: BP 149/64
--- NOTE | 2022-02-24 08:31 | Progress Note - Surgery ---
SERGIO ISLAS Bailey 02/24/22 0831: Subjective Date Seen by a Provider: Feb 24, 2022 Time Seen by a Provider: 07:25 Subjective/Events-last exam Mr. Coffey is 1 day s/p L AKA. This morning he reports his pain is well controlled at a 3/10. He has no concerns after surgery and reports he is very happy to be treated at [place]. He says he feels like "I could run a marathon if I had 2 legs." Review of Systems General: No Chills, No Fatigue HEENT: No Head Aches, No Visual Changes Pulmonary: No Dyspnea, No Cough Cardiovascular: No: Chest Pain, Palpitations Gastrointestinal: No: Nausea, Vomiting, Abdominal Pain Musculoskeletal: leg pain Neurological: No: Weakness, Confusion Objective Exam Vital Signs Date Time Temp Pulse Resp B/P (MAP) Pulse Ox O2 Delivery O2 Flow Rate FiO2 02/24/22 08:11 36.8 99 18 149/64 (92) 91 Nasal Cannula 2.00 02/24/22 03:53 36.8 90 16 116/63 (80) 98 Nasal Cannula 2.00 02/23/22 23:57 36.9 91 16 157/68 (97) 95 Nasal Cannula 2.00 02/23/22 20:18 36.5 81 20 126/59 (81) 97 Nasal Cannula 2.00 02/23/22 20:18 36.5 81 20 126/59 (81) 97 Nasal Cannula 2.00 02/23/22 20:00 97 Nasal Cannula 2.00 02/23/22 18:00 36.6 86 18 141/65 (90) 100 Nasal Cannula 2.00 02/23/22 18:00 36.6 86 18 141/65 (90) 100 Nasal Cannula 2.00 02/23/22 17:45 Room Air 02/23/22 17:35 36.6 12 130/61 (84) 96 Nasal Cannula 3.00 02/23/22 17:30 OxyMask 3.00 02/23/22 17:25 12 138/56 (83) 99 OxyMask 3.00 02/23/22 17:15 14 133/55 (81) 100 OxyMask 5.00 02/23/22 17:15 OxyMask 8 02/23/22 17:05 18 127/49 (75) 100 OxyMask 8 02/23/22 17:00 OxyMask 8 02/23/22 16:55 20 120/51 (74) 100 OxyMask 8 02/23/22 16:45 36.3 16 119/46 (70) 96 OxyMask 8 02/23/22 16:45 OxyMask 8 I & O 02/24/22 07:00 Intake Total 1250 ml Output Total 600 ml Balance 650 ml Capillary Refill : General Appearance: No Apparent Distress, WD/WN HEENT: PERRL/EOMI; No Scleral Icterus (L), No Scleral Icterus (R) Neck: Non Tender, Supple Respiratory: Chest Non Tender, Lungs Clear, Normal Breath Sounds, No Accessory Muscle Use, No Respiratory Distress Cardiovascular: Regular Rate, Rhythm, No Murmur, Normal Peripheral Pulses Peripheral Pulses: 2+ Radial Pulses (R), 2+ Radial Pulses (L) Gastrointestinal: non tender, soft; No distended, No guarding, No rebound Extremity: Other (L AKA. No tenderness or ertyhema above dressing.) Neurologic/Psychiatric: Alert, Oriented x3, Normal Mood/Affect Skin: Normal Color, Warm/Dry Results Lab Laboratory Tests 02/23/22 15:08: Glucometer 152H 02/23/22 21:02: Glucometer 123H 02/24/22 05:29: Glucometer 140H 02/24/22 07:09: White Blood Count 14.6H, Red Blood Count 3.86L, Hemoglobin 9.6L, Hematocrit 33L, Mean Corpuscular Volume 86, Mean Corpuscular Hemoglobin 25, Mean Corpuscular Hemoglobin Concent 29L, Red Cell Distribution Width 18.8H, Platelet Count 268, Mean Platelet Volume 11.3, Immature Granulocyte % (Auto) 1, Neutrophils (%) (Auto) 85H, Lymphocytes (%) (Auto) 6L, Monocytes (%) (Auto) 8, Eosinophils (%) (Auto) 0, Basophils (%) (Auto) 0, Neutrophils # (Auto) 12.5H, Lymphocytes # (Auto) 0.9L, Monocytes # (Auto) 1.2H, Eosinophils # (Auto) 0.0, Basophils # (Auto) 0.0, Immature Granulocyte # (Auto) 0.1, Neutrophils % (Manual) 86, Lymphocytes % (Manual) 9, Monocytes % (Manual) 5, Hypochromasia SLIGHT, Anisocytosis SLIGHT, Microcytosis SLIGHT, Sodium Level 137, Potassium Level 4.0, Chloride Level 99, Carbon Dioxide Level 24, Anion Gap 14, Blood Urea Nitrogen 14, Creatinine 0.76, Estimat Glomerular Filtration Rate 96, BUN/Creatinine Ratio 18, Glucose Level 123H, Calcium Level 9.3, Corrected Calcium 10.0, Total Bilirubin 0.7, Aspartate Amino Transf (AST/SGOT) 54H, Alanine Aminotransferase (ALT/SGPT) 29, Alkaline Phosphatase 61, Total Protein 6.8, Albumin 3.1L Assessment/Plan Assessment/Plan Assessment/Plan 1 day s/p L AKA Leukocytosis Anemia Continue pain control as needed Encourage PT/OT when tolerated Encourage ICS Encourage mobilization and OOB as soon as capable Monitor labs YONI PEREZ DO 02/24/22 1000: Subjective Time Seen by a Provider: 08:39 Subjective/Events-last exam Pt seen and examined, states he is doing very well this morning. I asked if he is ready to go to rehab and he stated yes. Review of Systems General: No Chills HEENT: No Head Aches, No Visual Changes Pulmonary: No Dyspnea, No Cough Cardiovascular: No: Chest Pain, Palpitations Gastrointestinal: No: Nausea Musculoskeletal: leg pain Objective Exam General Appearance: No Apparent Distress, WD/WN Respiratory: Chest Non Tender, Lungs Clear, Normal Breath Sounds, No Accessory Muscle Use, No Respiratory Distress Cardiovascular: Regular Rate, Rhythm, No Murmur Gastrointestinal: non tender, soft Extremity: Other (L AKA. No tenderness or ertyhema above dressing.) Assessment/Plan Assessment/Plan Assessment/Plan Post-op day 1 - s/p L AKA Leukocytosis Anemia Continue pain control as needed Encourage PT/OT when tolerated Encourage ICS Encourage mobilization and OOB as soon as capable Monitor labs Will D/C so he can go down to rehab. Supervisory-Addendum Brief Verification & Attestation Participated in pt care: history, MDM, physical Personally performed: exam, history, MDM, supervision of care Care discussed with: Medical Student Procedures: n/a Verification and Attestation of Medical Student E/M Service A medical student performed and documented this service. I then reviewed and verified all information documented by the medical student and made modifications to such information, when appropriate. I personally performed a physical exam, medical decision making and then discussed any differences between the notes and made revisions as necessary to create one note. Yoni Perez , 02/24/22 , 10:00 SERGIO ISLAS Feb 24, 2022 08:31 YONI PEREZ DO Feb 24, 2022 10:00
[2022-02-24] MEDS ORDERED: AMIODARONE 200 MG (CORDARONE) TAB PO SCH (09:00)
[2022-02-24] MEDS ORDERED: PANTOPRAZOLE 40 MG (PROTONIX) TAB PO SCH (09:00)
[2022-02-24] MEDS ORDERED: COLLAGENASE 30 GM (SANTYL) TUBE TP SCH (09:00)
[2022-02-24] MEDS ORDERED: LOSARTAN 50 MG (COZAAR) TAB PO SCH (09:00)
[2022-02-24] MEDS ORDERED: FUROSEMIDE 40 MG (LASIX) TAB PO SCH (09:00)
[2022-02-24] MEDS ORDERED: VITAMIN D3 25 MCG (1,000 UNITS) TABLET PO SCH (09:00)
--- NOTE | 2022-02-24 10:02 | Discharge Inst-Surgical ---
Discharge Inst-Surgical Depart Medication/Instructions New, Converted or Re-Newed RX: Other (restart home meds) Patient Instructions Follow up Appt: Make appointment for 1 week. [phone] Instructions: May shower in 24 hours, no tub bath or soaking. Use incentive spirometer at home as directed. No Smoking Skin/Wound Care: May remove bandages in am. You need to leave the siri and sutures in place, they will be removed in 10-14 days. Symptoms to Report: Appetite Changes, Extremity Discoloration, Numbness/Tingling, Swelling Increased, Bleeding Excessive, Eyesight Changes, Pain Increased, Urine Color Change, Constipation(Persistent), Fever over 101 degree F, Pain/Pressure in chest, Urinating Difficulty, Cough Up/Vomit Blood, Heart Beat Irreg/Pounding, Pain/Pressure in jaw, Cramps in feet or legs, Lightheadedness, Pain/Pressure in shoulder, Diarrhea(Persistent), Memory Changes Suddenly, Questions/Concerns, Weight gain consecutive days, Dizziness/Fainting, Nausea/Vomiting, Shortness of Breath, Weight gain over 2 pounds If questions or concerns contact your physician Or seek help at emergency department. Activity Activity as Tolerated: Yes Activity Instructions: Avoid Stress to Incision Diet Discharge Diet: No Restrictions Diet After 24 Hours: Clear Liquid if Nauseous If Any Problems/Questions/Issu: Contact Your Physician, Go to Emergency Room Skin/Wound Care Infection Signs and Symptoms: Increased Redness, Foul Odor of Wound, Increased Drainage, Skin Itchy or Has a Rash, Increased Swelling, Temperature Above 101 F Wound Care Comment: gently wrap leg to avoid to much pressure Bathing Instructions: Lauren Rincon ERIC B DO Feb 24, 2022 10:02
--- NOTE | 2022-02-24 10:43 | Anesthesia-General Post-Op ---
General Patient Condition Mental Status/LOC: Same as Preop Cardiovascular: Satisfactory Nausea/Vomiting: Absent Respiratory: Satisfactory Pain: Controlled Complications: Absent Post Op Complications Complications None Follow Up Care/Instructions Patient Instructions None needed. Anesthesia/Patient Condition Patient Condition Patient is doing well, no complaints, stable vital signs, no apparent adverse anesthesia problems. No complications reported per nursing. DEVONTE CROWLEY CRNA Feb 24, 2022 10:43
== END 2022-02-24 17:12 | DRG 475 ==
LOC: 4TH 02-23 14:00 → SURG 02-23 14:01 → 4TH 02-23 17:57
PROVIDERS: ADMIT Surgery; ATTEND Surgery
PROC: 0Y6D0Z1 Detachment at Left Upper Leg, High, Open Approach (ICD-10-PCS; principal; 2022-02-23 15:41)
DX: T87.89 Other complications of amputation stump (principal); I96 Gangrene, not elsewhere classified; D64.9 Anemia, unspecified; D72.829 Elevated white blood cell count, unspecified
CPT/HCPCS: 36415; 80053; 82947; 85007; 85027; 87081; 94760

== ENCOUNTER 2022-02-24 08:46 | Inpatient (IN) | payer MEDICARE, OTHER ==
[~2022-02-24] VITALS: Ht 165.1 cm; Wt 69.1 kg
[~2022-02-24 08:46] MED LIST changes: +LEVO-130 PO
[2022-02-24 11:00] VITALS: BP 129/67
[2022-02-24] MEDS ORDERED: ONDANSETRON 4 MG (ZOFRAN) ORAL DISSOLVE TAB PO PRN (11:00)
[2022-02-24] MEDS ORDERED: ALPRAZolam 0.25 MG (XANAX) TAB PO PRN (11:00)
[2022-02-24] MEDS ORDERED: guaiFENesin/CODEINE (ROBITUSSIN AC) 10ML UDC PO PRN (11:00)
[2022-02-24] MEDS ORDERED: LOPERAMIDE 2 MG (IMODIUM) TABLET PO PRN (11:00)
[2022-02-24] MEDS ORDERED: MELATONIN 3 MG TABLET PO PRN (11:00)
[2022-02-24] MEDS ORDERED: BISACODYL 10 MG SUPP (DULCOLAX) PR PRN (11:00)
[2022-02-24] MEDS ORDERED: CALCIUM CARBONATE 500 MG (TUMS) TAB.CHEW PO PRN (11:00)
[2022-02-24] MEDS ORDERED: FLEET ENEMA ADULT 1 EA BTL PR PRN (11:00)
[2022-02-24] MEDS ORDERED: DOCUSATE SODIUM 100 MG (COLACE) CAP PO PRN ×2 (11:00→11:30)
[2022-02-24] MEDS ORDERED: diphenhydrAMINE 25 MG TAB (BENADRYL) PO PRN (11:00)
[2022-02-24] MEDS ORDERED: LACTULOSE SYRUP 10GM/15ML (ENULOSE) 30ML UDC PO PRN (11:00)
--- NOTE | 2022-02-24 11:03 | PM&R Post Admission Assessment ---
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 He reports he has improved pain since the amputation but he is having difficulty with the left shoulder pain which limits his ability to perform tasks. Labs remained stable. Accuchecks will be ordered. Past Pjdkayf-Njdtvw-Coxewb Hx Past Med/Social Hx: Reviewed Nursing Past Med/Soc Hx, Reviewed and Corrections made Patient Social History Marrital Status: Employed/Student: retired Alcohol Use: Denies Use Smoking Status: Former Smoker Former Smoker, Quit: Feb 24, 1972 Type Used: Cigarettes 2nd Hand Smoke Exposure: No Immunizations Up To Date Tetanus Booster (TDap): Unknown Past Medical History Surgeries: Angioplasty, Orthopedic Currently Using CPAP: No Currently Using BIPAP: No Cardiac: Atrial Fibrillation, Chronic Edema/Swelling, Coronary Artery Disease, Heart Attack, High Cholesterol, Hypertension, Peripheral Vascular Neurological: Neuropathy Genitourinary: Benign Prostatic Hyperpl Gastrointestinal: Gastroesophageal Reflux Musculoskeletal: Amputee, Arthritis Endocrine: Hypothyroidsim, Diabetes, Non-Insulin dep History of Blood Disorders: No Family History No Pertinent Family Hx PM&R Allergy/Meds/Data Review Allergies Coded Allergies: gabapentin (Verified Allergy, Unknown, 02/22/22) nightmares lisinopril (Verified Allergy, Unknown, 02/10/22) niacin (Verified Allergy, Unknown, 02/10/22) oxycodone (Verified Allergy, Unknown, 02/10/22) rivaroxaban (Verified Allergy, Unknown, 02/10/22) Uncoded Allergies: CI Pigment Blue 63 (Adverse Reaction, Severe, Itching, 02/10/22) Home Medications Scheduled Amiodarone HCl (Amiodarone HCl), 200 MG PO DAILY, (Reported) Furosemide (Furosemide), 80 MG PO DAILY, (Reported) Glimepiride (Amaryl), 0.5 MG PO DAILY@0630 Levothyroxine Sodium (Euthyrox), 100 MCG PO DAILY, (Reported) Losartan Potassium (Losartan Potassium), 50 MG PO DAILY, (Reported) Metformin HCl (Metformin HCl), 500 MG PO BID@07,17 Metoprolol Succinate (Metoprolol Succinate), 25 MG PO DAILY, (Reported) Pantoprazole Sodium (Pantoprazole Sodium), 40 MG PO DAILY, (Reported) Potassium Chloride (K-Tab ER), 20 MEQ PO TID, (Reported) Scheduled PRN Docusate Sodium (Docusate Sodium), 100 MG PO BID PRN for CONSTIPATION-1ST LINE, (Reported) Hydrocodone/Acetaminophen (Hydrocodone-Acetamin 10-325 mg), 1 EACH PO Q8H PRN for PAIN-MODERATE (5-7) Discontinued Medications Apixaban (Eliquis), 5 MG PO BID, (Reported) Cholecalciferol (Vitamin D3) (Vitamin D3), 25 MCG PO DAILY, (Reported) Discontinued Reason: No Longer Taking Clopidogrel Bisulfate (Plavix), 75 MG PO 1200, (Reported) Glimepiride (Glimepiride), 4 MG PO BID, (Reported) Levothyroxine Sodium (Levothyroxine Sodium), 100 MCG PO DAILY, (Reported) Discontinued Reason: No Longer Taking Metformin HCl (Metformin HCl), 500 MG PO QID, (Reported) Simvastatin (Simvastatin), 20 MG PO HS, (Reported) Discontinued Reason: No Longer Taking Current Medications Current Medications Reviewed Review of Systems Constitutional: see HPI, weakness EENTM: no symptoms reported Respiratory: no symptoms reported Cardiovascular: no symptoms reported Gastrointestinal: constipation Genitourinary: no symptoms reported Musculoskeletal: back pain, joint pain Skin: no symptoms reported Psychiatric/Neurological: Depressed All Other Systems Reviewed Negative Unless Noted: Yes Physical Exam Physical Exam Vital Signs Capillary Refill : Height, Weight, BMI Height: '" Weight: lbs. oz. kg; 26.62 BMI Method: General Appearance: No Apparent Distress, WD/WN, Chronically ill Eyes: Bilateral Eye Normal Inspection, Bilateral Eye PERRL HEENT: PERRL/EOMI, Normal ENT Inspection, Pharynx Normal Neck: Full Range of Motion, Normal Inspection, Non Tender, Supple, Carotid Bruit Respiratory: Chest Non Tender, Lungs Clear, Normal Breath Sounds, No Accessory Muscle Use, No Respiratory Distress Cardiovascular: Regular Rate, Rhythm, No Edema, No Gallop, No JVD, No Murmur, Normal Peripheral Pulses Gastrointestinal: Normal Bowel Sounds, No Organomegaly, No Pulsatile Mass, Non Tender, Soft Back: Normal Inspection, No CVA Tenderness, No Vertebral Tenderness Extremity: Normal Capillary Refill, Normal Inspection, Normal Range of Motion (except left shoulder), Non Tender, No Calf Tenderness, No Pedal Edema Neurologic/Psychiatric: Alert, Oriented x3, No Motor/Sensory Deficits, Normal Mood/Affect, Motor Weakness (generalized khurram left arm), Other (AKA left) Skin: Normal Color, Warm/Dry Lymphatic: No Adenopathy PM&R Medical Assessment & Plan REHAB/MEDICAL ASSESSMENT AND PLAN: REHAB IMPAIRMENT GROUP: Left AKA ETIOLOGIC DIAGNOSIS: Left AKA The comorbidities that impact the patients function and/or functional outcome by: fall risk, left shoulder limitation, recent fall, situational depression, DM REHAB PLAN: The patient is being admitted to our comprehensive inpatient rehabilitation facility and can tolerate the intensity of service consisting of at least: 180 minutes of therapy a day, 5 out of 7 days a week Rehab treatment will consist of: PT OT will focus on regaining enough function to prevent falls and work on strengthening s/p left AKA and ultimately return back home The patient/family has a good understanding of our discharge process and will benefit from an interdisciplinary inpatient rehabilitation program. The patient has potential to make improvement and is in need of at least two of the following multidisciplinary therapies including but not limited to physical, occupational, speech, and prosthetics and orthotics. Additionally the patient will need services from respiratory, nutritional services, wound care, psychology, etc. (Customize this to each patient). Given the patients complex condition and risk of further medical complications, rehabilitation services cannot be safely or effectively provided at a lower level of care such as a alf facility. BARRIERS TO DISCHARGE: left AKA and left shoulder injury ESTIMATED LOS: 10 days DISPOSITION: Home RELEVANT CHANGES SINCE PREADMISSION SCREENING: I have compared the patients medical and functional status at the time of the preadmission screening and there are: no changes PROGNOSIS: Fair REHABILITATION GOALS: 1. PT OT will focus on regaining enough function to prevent falls and work on strengthening s/p left AKA and ultimately return back home All the above goals were reviewed with the patient and he/she is in agreement. By signing this document, I acknowledge that I have personally performed a full physical examination on this patient within 24 hours of admission to this inpatient rehabilitation facility and have determined the patient to be able to tolerate the above course of treatment at an intensive level for a reasonable period of time. I will be completing a detailed individualized Plan of Care for this patient by day #4 of the patients stay based upon the Preadmission Screen, the Post-Admission Evaluation, and the therapy evaluations. Admission Dx/Comorbidities: (1) S/P AKA (above knee amputation) ICD Codes: Z89.619 - Acquired absence of unspecified leg above knee (2) Gangrene ICD Codes: I96 - Gangrene, not elsewhere classified Assessment/Plan Assessment and Plan Assess & Plan/Chief Complaint Assessment: s/p Left AKA POD # 1 after failed LBKA 02/07/22 Fall 02/21/22 resulting in left shoulder injury causing further debility and l imiting ADL/independence Severe PVD PAF OAC HTN HLP DM Hypothyroidism Previous hypoglycemia required holding metformin and glimepiride but now on lower dose Constipation XIOMARA DICKENS DO Feb 24, 2022 11:03
--- NOTE | 2022-02-24 11:54 | Physical Therapy Evaluation ---
PT Evaluation-General Medical Diagnosis Admission Date Feb 24, 2022 at 11:22 Medical Diagnosis: left AKA Onset Date: Feb 23, 2022 Therapy Diagnosis Therapy Diagnosis: impaired mobility Precautions Precautions/Isolations: Fall Prevention, Standard Precautions Referral Physician: Cierra Chappell DO Reason for Referral: Evaluation/Treatment Medical History Pertinent Medical History: DM, PVD Reviewed History: Yes Social History Home: Single Level Current Living Status: Spouse Entry Into Home: Ramp (recently built), Stairs With Railing PT Steps Into Home: 4 Prior Prior Level of Function SCALE: Activities may be completed with or without assistive devices. 6-Fpeuxitmbe-mdaioui completes the activity by him/herself with no assistance from a helper. 5-Set-up or Clean-up Assistance-helper sets up or cleans up; patient completes activity. [place] assists only prior to or following the activity. 4-Supervision or Touching Assistance-helper provides verbal cues and/or touching/steadying and/or contact guard assistance as patient completes activity. Assistance may be provided throughout the activity or intermittently. 3-Partial/Moderate Assistance-helper does LESS THAN HALF the effort. [place] lifts, holds or supports trunk or limbs, but provides less than half the effort. 2-Substantial/Maximal Assistance-helper does MORE THAN HALF the effort. [place] lifts or holds trunk or limbs and provides more than half the effort. 5-Vyobtpiax-tejdph does ALL the effort. Patient does none of the effort to complete the activity. Or, the assistance of 2 or more helpers is required for the patient to complete the activity. If activity was not attempted, code reason: 7-Patient Refused. 9-Not Applicable-not attempted and the patient did not perform the activity before the current illness, exacerbation or injury. 10-Not Attempted due to Environmental Limitations-(lack of equipment, weather restraints, etc.). 88-Not Attempted due to Medical Conditions or Safety Concerns. Bed Mobility: 6 Transfers (B,C,W/C): 3 Gait: 3 Stairs: 3 Wheelchair Mobility: 6 Indoor Mobility (Ambulation): Needed Some Help Stairs: Needed Some Help Prior Devices Use: Manual wheelchair, Walker PT Evaluation-Current Subjective Patient in bed pre tx, agrees to PT, has unrated pain in left hip. Will be co- treating with OT for part of tx due to poor patient mobility, severe debility, severe pain with activity, coordinate UE and LE with activity, safety and reduce risk of falls. Pt/Family Goals to be independent at home. Objective Patient Orientation: Person, Place, Situation ROM/Strength ROM Lower Extremities WNL Strength Lower Extremities RLE (hip flexion 3+/5, knee flexion 3+/5, knee extension 4-/5, dorsiflexion 3/5), RLE hip not tested Sensory Vision: Functional Hearing: Functional Sensation Right Lower Extremit: Impaired Sensation Left Lower Extremity: Impaired Transfers Roll Left & Right (QC): 3 Sit to Lying (QC): 3 Lying to Sitting/Side of Bed(Q: 3 Sit to Stand (QC): 2 Chair/Yda-ei-Hqdgt Xfer(QC): 2 Toilet Transfer (QC): 2 Car Transfer (QC): 2 Patient performs rolling with min assist, supine <-> sit mod assist, sit <-> stand max assist, transfer with sliding board max assist, car transfer max assist. Patient can also perform a stand pivot transfer with max assist. Patient needs cues for hand placement and positioning. In he parallel bars patient stood x3 for about 20 seconds each time, also performed LLE hip extension and abd x10 with residual limb. Gait Does the Patient Walk?: No and Walking Goal NOT indicated Walk 10 feet (QC): 88 Walk 50 ft with 2 Turns(QC): 88 Walk 150 ft (QC): 88 Walking 10ft/uneven surface-QC: 88 Wheelchair Training Does the Pt Use a Wheelchair?: Yes Distance: 100'x2 Wheel 50 ft with 2 turns (QC): 4 Wheel 150 ft (QC): 88 Type of Wheelchair: Manual Patient can propel a manual WC 100' with SBA, he is very slow, only goes a few f eet before needing a rest break. Patient has bad shoulders bilaterally, would benefit from a power WC or scooter. Stairs 1 Step (curb) (QC): 88 4 Steps (QC): 88 12 Steps (QC): 88 Balance Sitting Static: Fair Sitting Dynamic: Fair Standing Static: Poor Standing Dynamic: Poor Picking up an Object (QC): 88 Treatment Patient was soiled in the bed at the beginning of tx, had to roll from side to side for cleaning and to get brief and underwear on. Patient also performed ADL's in restroom at the end of tx. PT performed bed mobility and transfers, WC mobility, rolling for cleaning and dressing, positioning and safety during ADL's, OT performed cleaning and dressing, ADL's, UE positioning and safety during activity. Assessment/Needs Patient in recliner post tx with nurse call, phone, tray, all needs met. Patient has impaired mobility, strength, endurance. He has a lot of pain with activity, needs significant assist with transfers. Rehab Potential: Guarded PT Short Term Goals Short Term Goals Time Frame: Mar 03, 2022 Roll Left & Right: 4 Sit to lyin (Batsheva) Lying to sitting on side of be: 3 (Batsheva) Sit to stand: 3 (modA) Chair/ydw-br-xlczg transfer: 3 (modA) PT Medical Records Supervisor Goals Medical Records Supervisor Goals PT Medical Records Supervisor Goals Time Frame: Mar 17, 2022 Roll Left & Right (QC): 6 Sit to Lying (QC): 4 (SBA) Lying-Sitting on Side/Bed(QC): 4 (SBA) Sit to Stand (QC): 3 (Batsheva) Chair/Eca-zh-Zanfo Xfer(QC): 3 (Batsheva) Toilet Transfer (QC): 3 (Batsheva) Car Transfer (QC): 3 (Batsheva) Does the Patient Walk: No and Walking Goal NOT indicated Walk 10 feet (QC): 88 Walk 50ft with 2 Turns (QC): 88 Walk 150 ft (QC): 88 Walking 10ft on Uneven Surface: 88 1 Step (curb) (QC): 88 4 Steps (QC): 88 12 Steps (QC): 88 Picking up an Object (QC): 88 Wheel 50 feet with 2 turns (QC: 6 Wheel 150 feet: 6 PT Plan Problem List Problem List: Activity Tolerance, Functional Strength, Safety, Balance, Transfer, Bed Mobility, ROM Treatment/Plan Treatment Plan: Continue Plan of Care Treatment Plan: Bed Mobility, Education, Functional Activity Lalit, Functional Strength, Group Therapy, Safety, Therapeutic Exercise, Transfers Treatment Duration: Mar 17, 2022 Frequency: At least 5 of 7 days/Wk (IRF) Estimated Hrs Per Day: 1.5 hours per day Patient and/or Family Agrees t: Yes Safety Risks/Education Patient Education: Transfer Techniques, Correct Positioning, W/C Management, Safety Issues Teaching Recipient: Patient Teaching Methods: Demonstration, Discussion Response to Teaching: Reinforcement Needed Discharge Recommendations Plan Patient will perform bed mobility and transfer training, balance and endurance training, functional strengthening, and education, to improve functional mobility and independence at home. Therapy Discharge Recommendati: Scheduled Assistance, Home & Family, Post Acute PT Time/GCodes Time In: 1050 Time Out: 1200 Total Billed Treatment Time: 60 Total Billed Treatment 1 visit EVM 10' FA 50' PT eval from [id number], OT eval from [id number], co-treat from [id number] JESSICA FOX PT Feb 24, 2022 11:54
--- NOTE | 2022-02-24 11:55 | Occupational Therapy Eval ---
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 Social History Home: Single Level Current Living Status: Spouse Entry Into Home: Ramp ADL-Prior Level of Function SCALE: Activities may be completed with or without assistive devices. 5-Hpisxeorty-ouaqibd completes the activity by him/herself with no assistance from a helper. 5-Set-up or Clean-up Assistance-helper sets up or cleans up; patient completes activity. [place] assists only prior to or following the activity. 4-Supervision or Touching Assistance-helper provides verbal cues and/or touching/steadying and/or contact guard assistance as patient completes activity. Assistance may be provided throughout the activity or intermittently. 3-Partial/Moderate Assistance-helper does LESS THAN HALF the effort. [place] lifts, holds or supports trunk or limbs, but provides less than half the effort. 2-Substantial/Maximal Assistance-helper does MORE THAN HALF the effort. [place] lifts or holds trunk or limbs and provides more than half the effort. 5-Pnzibhohd-dgeiuv does ALL the effort. Patient does none of the effort to complete the activity. Or, the assistance of 2 or more helpers is required for the patient to complete the activity. If activity was not attempted, code reason: 7-Patient Refused. 9-Not Applicable-not attempted and the patient did not perform the activity before the current illness, exacerbation or injury. 10-Not Attempted due to Environmental Limitations-(lack of equipment, weather restraints, etc.). 88-Not Attempted due to Medical Conditions or Safety Concerns. ADL PLOF Comments Pt required assistance with ADLs prior to initial BKA on 6/21. His assists him with showering, UE/LE dressing, footwear and IADLs, He was able to toilet hi mself, perform oral care and eat independently. Since he discharged from ARU on 02/22, he required total-moderate assistance with all ADLs (dressing, toileting, showering), and set up with eating and oral care. Self Care: Needed Some Help Functional Cognition: Independent DME/Equipment: Bath Chair, Grab Bars, Shower, Shower Hose Power Barker DME/Equipment Comments Walker, w/c. OT Current Status Subjective Pt in bed upon OT arrival, agreeable to OT/PT cotreat for eval/tx. Mental Status/Objective Patient Orientation: Person, Confused, Place, Situation When asked if pt had scheduled apt with dr yamilet HEIN, pt was unable to recall the events that lead him to the surgery. Attachments: Oxygen (2L) Current Glasses/Contacts: No Hearing Aids: No Dentures/Partials: No Hand Dominance: Right Upper Extremity ROM ~60 degrees of shoulder flexion in RUE, ~10 degrees in LUE WFL elbow flexion/extension. Limited supination LUE (pt able to get wrist in neutral position) Upper Extremity Strength grossly 3/5 in RUE and 2+/5 in LUE ADL-Treatment Eating (QC): 5 (Assistance opening containers) Oral Hygiene (QC): 5 (set up at sink) Shower/Bathe Self (QC): 1 (Assist x2 with sponge bath to help with bed mobility and wiping) Upper Body Dressing (QC): 3 (Mod A. Assist required overhead and slight assistance down trunk.) Lower Body Dressing (QC): 1 (Assist x2) On/Off Footwear (QC): 1 Toileting Hygiene (QC): 1 (Assist x2 for bowel movement. Setup with urinal) Other Treatments [id number]: OT evaluation complete. OT/PT cotreat due to skill of 2 clinicians r equired which a certified rehabilitation counselor could not perform in order to coordinate UE/LEs, decrease fall risk, and due to pt's limitations in pain, mobility/transfers. OT focused on UE placement, cues for sequencing and safety,while PT focused on LE placement, gross overall movement, transfers/mobility. Pt donned underwear at bed level prior to using SB to transfer to w/c. Pt required min A with bed mobility during LBD task, Mod A supine<>sit, and Max A to transfer to w/c with SB. Pt performed functional mobility throughout the hallways with frequent RBs every few feet. He returned to room to complete toileting at w/c level with urinal before heading to therapy gym to participate in transfer preparatory exercises at the parallel bars (3x for ~20seconds). Pt required v/c's to extend R knee and stand up straight during activity. Pt wheeled back to room to complete oral care seated at the sink. Pt used FWW to SPT from w/c to recliner, Max A. Post tx, pt left in recliner with call light in reach and all needs met. [id number]: Pt donned pullover shirt, required VCs to recall dressing techniques from last time he was on rehab unit. In order to increase BUE strength and activity tolerance, pt completed x20 reps biceps curls RUE, 2lb weight. 2x10 biceps curls LUE, no weight. x10 reps wrist flexion and extension 2lb wrist weight RUE, no weight LUE. Pt had difficulty maintaining neutral midline position in recliner, leaning towards L side. OT assisted pt with positioning with blanket on L Side to prevent leaning. Post tx, pt in recliner, call light in reach and all needs met. Education OT Patient Education: Correct positioning, Energy conservation, Exercise program, Modified ADL techniques, Progress toward Goal/Update tx plan, Purpose of tx/functional activities, Reviewed precautions, Rehab process, Safety issues, Transfer techniques, W/C management Teaching Recipient: Patient Teaching Methods: Discussion Response to Teaching: Verbalize Understanding OT Short Term Goals Short Term Goals Time Frame: Mar 08, 2022 Toileting hygiene: 2 Shower/bathe self: 3 Lower body dressin Putting on/taking off footwear: 3 OT Fdc Goals Fdc Goals Time Frame: Mar 24, 2022 Eating (QC): 6 Oral Hygiene (QC): 6 Toileting Hygiene (QC): 3 (bowel movements on toilet) Shower/Bathe Self (QC): 4 Upper Body Dressing (QC): 5 Lower Body Dressing (QC): 3 On/Off Footwear (QC): 4 Additional Goals: 1-Demonstrate ADL Tasks, 2-Verbalize Understanding, 3- ImproveStrength/Lalit 1=Demonstrate adherence to instructed precautions during ADL tasks. 2=Patient will verbalize/demonstrate understanding of assistive devices/modif ications for ADL. 3=Patient will improve strength/tolerance for activity to enable patient to perform ADL's. OT Education/Plan Problem List/Assessment Assessment: Decreased Activ Tolerance, Decreased UE Strength, Impaired Bed Mobility, Impaired Coordination, Impaired Funct Balance, Impaired I ADL's, Impaired Self-Care Skills, Restricted Funct UE ROM Discharge Recommendations Plan/Recommendations: Continue POC Comment Depends on pt progress Treatment Plan/Plan of Care Patient would benefit from OT for education, treatment and training to promote independence in ADL's, mobility, safety and/or upper extremity function for ADL's. Plan of Care: ADL Retraining, Caregiver Training, Functional Mobility, Group Exercise/Act as Ind, UE Funct Exercise/Act, W/C Management Training Treatment Duration: Mar 24, 2022 Frequency: At least 5 of 7 days/Wk (IRF) Estimated Hrs Per Day: 1.5 hours per day Rehab Potential: Guarded Time/GCodes Start Time: 11:00 ([id number]) Stop Time: 13:40 ([id number]) Total Time Billed (hr/min): 75 Billed Treatment Time OT eval [id number], Cotreat x50 1, EVH (10'), ADL 2 (25'), FA 1 (25') [id number] 1, EX OCTAVIA ORLANDO OT Feb 24, 2022 11:55
--- NOTE | 2022-02-24 13:13 | ST Cognitive Linguistic Eval ---
Speech Evaluation-General Medical Diagnosis s/p L AKA Onset Date: Feb 23, 2022 Therapy Diagnosis Therapy Diagnosis: Mild Neurocognitive Impairment Precautions Precautions: Fall Precautions/Isolations: Fall Prevention, Standard Precautions Referral Referring Physician: Dr. Chappell Reason for Referral: Evaluation/Treatment Medical History Pertinent Medical History: DM, PVD Current History The patient is a 71 year-old male s/p L BKA on 02/07/22, admitted to ARU and discharged 02/22/22. 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 Reviewed History: Yes Social History Current Living Status: Spouse Speech PLF-Current Status Prior Level of Function The patient stated, "I am 70, I know I have some memory changes but that's just going to happen." The patient denied additional challenges with speech, language, or cognition. Subjective The patient was seated upright in his recliner, awake and alert upon entrance to his room by the clinician. The patient greeted the clinician appropriately and was agreeable to participation in the cognitive linguistic assessment. Language Eval: Auditory Comprehends Simple Yes/No Ques: Functional Indent/Objects Multiple [place]: Functional Ident/Pics in Multiple Kirby: Functional Follows 1-Step Commands: Functional Follows General Conversations: Functional Language Eval: Verbal Language Completes Spontaneous Greeting: Functional Produces Auto, Serial Info: Functional Imitates Simple Words/Phrases: Functional Word Finding: Functional Requests Basic Needs: Functional States Basic Personal Info: Functional Language Evaluation: Reading Follows Simple Written Direct: Functional Language Evaluation: Writing Writes to Simple Dictation: Functional Cognitive Patient Orientation The patient was independently oriented to self, location, month, day of week, date, and year. Objective Cognitive Domain Attention: Mild Memory: Mild Problem Solving: Mild Executive Functions: Mild Composite Severity Rating: Mild Clock Drawing Severity Rating: WNL Objective Formal/Standardized Tests [facility] Mental Status Examination (UMS) Results The patient demonstrated a result of +24/30 on the SLUMS correlating to a mild neurocognitive impairment. Oral Motor/Speech Production The patient does not display dysarthria or apraxia of speech at this time. The patient remains 100% intelligible in known and unknown contexts. Impression The patient displayed deficits in the areas of delayed recall and simple problem solving. The clinician discussed the patient's results with the patient immediately following. The patient was quick to respond that he was not interested in participating in skilled speech pathology treatment. The clinician attempted to discuss with the patient how his treatment would be individualized and speech pathology could aid in reinforcing skills and routines introduced by physical therapy and occupational therapy to improve safety upon discharge. Regardless of continued encouragement and rationale, the patient politely ref used. The speech pathology asked the patient to please notify staff if he changes his position in the near future. Speech Patient Assess Expression of Ideas/Wants: Expression (4) Understanding Verbal Content: Understands (4) Brief Interview-Mental Status: Yes Repetition of Three Words: Three (3) Temporal Orientation: Year: Correct (3) Temporal Orientation: Month: Accurate within 5 days(2) Temporal Orientation: Day: Correct (1) Recall : Wear to say "Sock": Yes, no cue required (2) Recall : Color: Yes, no cue required (2) Recall : Bed: Yes,after cueing (1) Memory/Recall Ability: Current season, Location of own room, Staff names and faces, That he or she is in a hsp/hsp unit Speech-Plan Treatment Plan Speech Therapy Treatment Plan: Discontinue ST (Per patient request.) Frequency: 1 time per week Estimated Hrs Per Day: .5 hour per day Rehab Potential: Guarded Safety Risks/Education Teaching Recipient: Patient Teaching Methods: Discussion Response to Teaching: Verbalize Understanding, Reinforcement Needed Education Topics Provided: Results of SLUMS, Recommendations for Skilled Speech Pathology, Education regarding Skilled Speech Pathology Time Speech Therapy Time In: 12:00 Speech Therapy Time Out: 12:30 Total Billed Time: 30 Billed Treatment Time 1, JOSE WIGGINS ELIZABETH ST Feb 24, 2022 13:13
--- NOTE | 2022-02-24 13:18 | Physical Therapy Daily Note ---
PT Daily Note-Current Subjective Patient in recliner pre tx, agrees to PT, has no complaints of pain at rest. Appearance Patient in recliner post tx with nurse call, phone, tray, all needs met. Mental Status Patient Orientation: Person, Place, Situation Attachments: Oxygen Transfers SCALE: Activities may be completed with or without assistive devices. 8-Rdtiralhew-pmrxvwv completes the activity by him/herself with no assistance from a helper. 5-Set-up or Clean-up Assistance-helper sets up or cleans up; patient completes activity. [place] assists only prior to or following the activity. 4-Supervision or Touching Assistance-helper provides verbal cues and/or touching/steadying and/or contact guard assistance as patient completes activity. Assistance may be provided throughout the activity or intermittently. 3-Partial/Moderate Assistance-helper does LESS THAN HALF the effort. [place] lifts, holds or supports trunk or limbs, but provides less than half the effort. 2-Substantial/Maximal Assistance-helper does MORE THAN HALF the effort. [place] lifts or holds trunk or limbs and provides more than half the effort. 7-Ipbxngpfc-ztfcta does ALL the effort. Patient does none of the effort to complete the activity. Or, the assistance of 2 or more helpers is required for the patient to complete the activity. If activity was not attempted, code reason: 7-Patient Refused. 9-Not Applicable-not attempted and the patient did not perform the activity before the current illness, exacerbation or injury. 10-Not Attempted due to Environmental Limitations-(lack of equipment, weather restraints, etc.). 88-Not Attempted due to Medical Conditions or Safety Concerns. Exercises Supine Ex: Quad Set (RLE), Glut sets, Straight leg raise, Hip abd/add Supine Reps: 20 Seated Therapy Exercises: Ankle pumps, Long arc quads, Hip flexion Seated Reps: 20 Treatments LE ROM Assessment Current Status: Fair Progress Patient's LLE tends to elevate into the air at rest when sitting, encouraged patient to perform hip extension, press into his recliner seat in order to help this. PT Short Term Goals Short Term Goals Time Frame: Mar 03, 2022 Roll Left & Right: 4 Sit to lyin (Batsheva) Lying to sitting on side of be: 3 (Batsheva) Sit to stand: 3 (modA) Chair/bcv-cg-khbsw transfer: 3 (modA) PT Economic Development Coordinator Goals Economic Development Coordinator Goals PT Nursing Home Goals Time Frame: Mar 17, 2022 Roll Left & Right (QC): 6 Sit to Lying (QC): 4 (SBA) Lying-Sitting on Side/Bed(QC): 4 (SBA) Sit to Stand (QC): 3 (Batsheva) Chair/Hnx-jq-Xuunj Xfer(QC): 3 (Batsheva) Toilet Transfer (QC): 3 (Batsheva) Car Transfer (QC): 3 (Batsheva) Does the Patient Walk: No and Walking Goal NOT indicated Walk 10 feet (QC): 88 Walk 50ft with 2 Turns (QC): 88 Walk 150 ft (QC): 88 Walking 10ft on Uneven Surface: 88 1 Step (curb) (QC): 88 4 Steps (QC): 88 12 Steps (QC): 88 Picking up an Object (QC): 88 Wheel 50 feet with 2 turns (QC: 6 Wheel 150 feet: 6 PT Plan Problem List Problem List: Activity Tolerance, Functional Strength, Safety, Balance, Transfer, Bed Mobility, ROM Treatment/Plan Treatment Plan: Continue Plan of Care Treatment Plan: Bed Mobility, Education, Functional Activity Lalit, Functional Strength, Group Therapy, Safety, Therapeutic Exercise, Transfers Treatment Duration: Mar 17, 2022 Frequency: At least 5 of 7 days/Wk (IRF) Estimated Hrs Per Day: 1.5 hours per day Patient and/or Family Agrees t: Yes Safety Risks/Education Patient Education: Correct Positioning, Safety Issues Teaching Recipient: Patient Teaching Methods: Demonstration, Discussion Response to Teaching: Reinforcement Needed Time/GCodes Time In: 1300 Time Out: 1315 Total Billed Treatment Time: 15 Total Billed Treatment 1 visit EX 15' JESSICA FOX PT Feb 24, 2022 13:18
[2022-02-24] MEDS: metFORMIN 500 MG (GLUCOPHAGE) TAB PO SCH (17:26)
[2022-02-24 20:30] VITALS: BP 107/52
[2022-02-24] MEDS: ACETAMINOPHEN 325 MG TABLET PO PRN (20:38)
[2022-02-24] MEDS: DOCUSATE SODIUM 100 MG (COLACE) CAP PO SCH (20:46)
[2022-02-24] MEDS: polyethylene glycoL POWDER 17 GM (MIRALAX) PACK PO SCH (20:46)
[2022-02-24] MEDS: SENNA W/DOCUSATE (SENOKOT S) TABLET PO SCH (20:47)
[2022-02-25] MEDS: LEVOTHYROXINE 100 MCG (LEVOTHROID) TAB PO SCH (05:37)
[2022-02-25] MEDS: GLIMEPIRIDE 1 MG (AMARYL) TAB PO SCH (05:37)
[2022-02-25] MEDS: ACETAMINOPHEN 325 MG TABLET PO PRN (05:39)
[2022-02-25 06:08] LABS: BASOPHILS % (AUTO) 0 % (0-10); EOSINOPHILS % (AUTO) 0 % (0-10); HEMATOCRIT 32 % (40-54); HEMOGLOBIN 9.4 g/dL (13.3-17.7); LYMPHOCYTES # (AUTO) 0.8 10^3/uL (1.0-4.0); LYMPHOCYTES % (AUTO) 5 % (12-44); MEAN CORPUSCULAR HEMOGLOBIN 25 pg (25-34); MEAN CORPUSCULAR HGB CONC 29 g/dL (32-36); MEAN CORPUSCULAR VOLUME 85 fL (80-99); MEAN PLATELET VOLUME 12.1 fL (9.0-12.2); MONOCYTES # (AUTO) 1.4 10^3/uL (0.0-1.0); MONOCYTES % (AUTO) 9 % (0-12); NEUTROPHILS # (AUTO) 13.2 10^3/uL (1.8-7.8); NEUTROPHILS % (AUTO) 85 % (42-75); PLATELET COUNT 274 10^3/uL (130-400); WHITE BLOOD COUNT 15.6 10^3/uL (4.3-11.0)
[2022-02-25 06:39] LABS: ALBUMIN 3.1 GM/DL (3.2-4.5)
[2022-02-25 06:40] LABS: POTASSIUM 3.5 MMOL/L (3.6-5.0)
[2022-02-25 06:41] LABS: CALCIUM 9.1 MG/DL (8.5-10.1)
[2022-02-25 06:42] LABS: TOTAL PROTEIN 6.9 GM/DL (6.4-8.2)
[2022-02-25 06:44] LABS: BILIRUBIN,TOTAL 0.9 MG/DL (0.1-1.0)
[2022-02-25 06:46] LABS: CREATININE SERUM 0.8 MG/DL (0.60-1.30)
[2022-02-25] MEDS: metFORMIN 500 MG (GLUCOPHAGE) TAB PO SCH ×2 (06:53→17:06)
[2022-02-25] MEDS ORDERED: KCL 10 MEQ TAB (MICRO K) PO SCH (07:00)
[2022-02-25 08:00] VITALS: BP 101/45
[2022-02-25] MEDS ORDERED: NON-FORMULARY MEDICATION 1 EA EA (Furosemide 80 MG) PO SCH (09:00)
[2022-02-25] MEDS: PANTOPRAZOLE 40 MG (PROTONIX) TAB PO SCH (09:19)
[2022-02-25] MEDS: DOCUSATE SODIUM 100 MG (COLACE) CAP PO SCH ×2 (09:19→20:24)
[2022-02-25] MEDS: LOSARTAN 50 MG (COZAAR) TAB PO SCH (09:19)
[2022-02-25] MEDS: FUROSEMIDE 40 MG (LASIX) TAB PO SCH (09:20)
[2022-02-25] MEDS: polyethylene glycoL POWDER 17 GM (MIRALAX) PACK PO SCH ×2 (09:20→20:25)
[2022-02-25] MEDS: SENNA W/DOCUSATE (SENOKOT S) TABLET PO SCH ×2 (09:20→20:24)
[2022-02-25] MEDS: AMIODARONE 200 MG (CORDARONE) TAB PO SCH (09:22)
--- NOTE | 2022-02-25 10:25 | Physical Therapy Daily Note ---
PT Daily Note-Current Subjective Pt in bed upon arrival and agrees to PT. Pt reports he's in a lot of pain today and requests to not get out of bed. Pt present. Pain Numeric Pain Scale: 7 Mental Status Patient Orientation: Person, Place, Time, Situation Transfers SCALE: Activities may be completed with or without assistive devices. 9-Fcqwcyynbl-sbsnldq completes the activity by him/herself with no assistance from a helper. 5-Set-up or Clean-up Assistance-helper sets up or cleans up; patient completes activity. [place] assists only prior to or following the activity. 4-Supervision or Touching Assistance-helper provides verbal cues and/or touching/steadying and/or contact guard assistance as patient completes activity. Assistance may be provided throughout the activity or intermittently. 3-Partial/Moderate Assistance-helper does LESS THAN HALF the effort. [place] lifts, holds or supports trunk or limbs, but provides less than half the effort. 2-Substantial/Maximal Assistance-helper does MORE THAN HALF the effort. [place] lifts or holds trunk or limbs and provides more than half the effort. 2-Tdvicmlsh-pkomrd does ALL the effort. Patient does none of the effort to complete the activity. Or, the assistance of 2 or more helpers is required for the patient to complete the activity. If activity was not attempted, code reason: 7-Patient Refused. 9-Not Applicable-not attempted and the patient did not perform the activity before the current illness, exacerbation or injury. 10-Not Attempted due to Environmental Limitations-(lack of equipment, weather restraints, etc.). 88-Not Attempted due to Medical Conditions or Safety Concerns. Roll Left & Right (QC): 3 Exercises Supine Ex: Ankle pumps, Quad Set, Rolling, Glut sets, Heel Slides, Knee to chest, Straight leg raise, Hip abd/add Supine Reps: 20 Treatments Call light and all needs met as PT departs. Assessment Current Status: Fair Progress Pt pain increased when trying to roll to (L) side d/t shoulder pain. Pt fatigued this date. PT Short Term Goals Short Term Goals Time Frame: Mar 03, 2022 Roll Left & Right: 4 Sit to lyin (Batsheva) Lying to sitting on side of be: 3 (Batsheva) Sit to stand: 3 (modA) Chair/bzz-dn-xyqmm transfer: 3 (modA) PT [employer]ed [employer] Beveler Goals [employer] Be[employer]er Goals PT Fpc Goals Time Frame: Mar 17, 2022 Roll Left & Right (QC): 6 Sit to Lying (QC): 4 (SBA) Lying-Sitting on Side/Bed(QC): 4 (SBA) Sit to Stand (QC): 3 (Batsheva) Chair/Cvz-uk-Zadcc Xfer(QC): 3 (Batsheva) Toilet Transfer (QC): 3 (Batsheva) Car Transfer (QC): 3 (Batsheva) Does the Patient Walk: No and Walking Goal NOT indicated Walk 10 feet (QC): 88 Walk 50ft with 2 Turns (QC): 88 Walk 150 ft (QC): 88 Walking 10ft on Uneven Surface: 88 1 Step (curb) (QC): 88 4 Steps (QC): 88 12 Steps (QC): 88 Picking up an Object (QC): 88 Wheel 50 feet with 2 turns (QC: 6 Wheel 150 feet: 6 PT Plan Problem List Problem List: Activity Tolerance, Functional Strength Treatment/Plan Treatment Plan: Continue Plan of Care Treatment Plan: Bed Mobility, Education, Functional Activity Lalit, Functional Strength, Group Therapy, Safety, Therapeutic Exercise, Transfers Treatment Duration: Mar 17, 2022 Frequency: At least 5 of 7 days/Wk (IRF) Estimated Hrs Per Day: 1.5 hours per day Patient and/or Family Agrees t: Yes Safety Risks/Education Patient Education: Correct Positioning Teaching Recipient: Patient Teaching Methods: Discussion Response to Teaching: Return Demonstration Time/GCodes Time In: 850 Time Out: 905 Total Billed Treatment Time: 15 Total Billed Treatment 1, Ex RADHA SALEH PTA Feb 25, 2022 10:25
[2022-02-25] MEDS: inSUlin ASPART (NovoLOG) 1 UNIT/0.01 ML (CHARGE PER UNIT) SC SCH ×3 (11:04→20:25)
--- NOTE | 2022-02-25 11:39 | Progress Note ---
Subjective Date Seen by a Provider: Feb 25, 2022 Time Seen by a Provider: 11:30 Subjective/Events-last exam Patient seen with Dr. Alcantara. Patient reports doing well. Denies any left lower extremity pain, but does report some left shoulder discomfort. Tolerating diet. Objective Exam Vital Signs Date Time Temp Pulse Resp B/P (MAP) Pulse Ox O2 Delivery O2 Flow Rate FiO2 02/25/22 09:40 96 Nasal Cannula 2.00 02/25/22 08:00 36.9 84 20 101/45 (63) 96 Nasal Cannula 1.50 02/25/22 05:39 38.2 02/24/22 21:53 36.8 02/24/22 21:08 38.2 02/24/22 20:45 93 Nasal Cannula 2.00 02/24/22 20:38 38.5 02/24/22 20:30 38.5 101 18 107/52 (70) 92 Nasal Cannula 2.00 02/24/22 14:05 97 Nasal Cannula 2.00 Capillary Refill : General Appearance: No Apparent Distress, WD/WN Neck: Normal Inspection, Supple Respiratory: No Accessory Muscle Use, No Respiratory Distress Gastrointestinal: normal bowel sounds, non tender, soft Extremity: Other (left AKA with dressing in place C/D/I) Neurologic/Psychiatric: Alert, Oriented x3 Results Lab Laboratory Tests 02/24/22 16:37: Glucometer 151H 02/24/22 20:27: Glucometer 127H 02/25/22 05:26: White Blood Count 15.6H, Red Blood Count 3.79L, Hemoglobin 9.4L, Hematocrit 32L, Mean Corpuscular Volume 85, Mean Corpuscular Hemoglobin 25, Mean Corpuscular Hemoglobin Concent 29L, Red Cell Distribution Width 18.7H, Platelet Count 274, Mean Platelet Volume 12.1, Immature Granulocyte % (Auto) 1, Neutrophils (%) (Auto) 85H, Lymphocytes (%) (Auto) 5L, Monocytes (%) (Auto) 9, Eosinophils (%) (Auto) 0, Basophils (%) (Auto) 0, Neutrophils # (Auto) 13.2H, Lymphocytes # (Auto) 0.8L, Monocytes # (Auto) 1.4H, Eosinophils # (Auto) 0.0, Basophils # (Auto) 0.0, Immature Granulocyte # (Auto) 0.1, Sodium Level 135, Potassium Level 3.5L, Chloride Level 97L, Carbon Dioxide Level 24, Anion Gap 14, Blood Urea Nitrogen 15, Creatinine 0.80, Estimat Glomerular Filtration Rate 95, BUN/Creatinine Ratio 19, Glucose Level 84, Calcium Level 9.1, Corrected Calcium 9.8, Total Bilirubin 0.9, Aspartate Amino Transf (AST/SGOT) 55H, Alanine Aminotransferase (ALT/SGPT) 31, Alkaline Phosphatase 85, Total Protein 6.9, Albumin 3.1L 02/25/22 10:58: Glucometer 113H Assessment/Plan Assessment/Plan Assess & Plan/Chief Complaint A 71 year old male with wet gangrene who is S/P AKA POD #2 VSS WBC 15.6 - will start oral abx Continue pain meds PRN Continue inpat rehab ZONIA WANG APRN Feb 25, 2022 11:39
[2022-02-25] MEDS ORDERED: PIPERACILLIN SODIUM/TAZOBACTAM 4.5 GM in NS (IVPB) 100 ML IV SCH (11:45)
[2022-02-25] MEDS: AUGMENTIN 500 MG TAB (AMOXICILLIN/CLAVULANATE) PO SCH (17:06)
[2022-02-25 19:40] VITALS: BP 109/67
[2022-02-25] MEDS: KCL 10 MEQ TAB (MICRO K) PO SCH (20:24)
[2022-02-26] MEDS: inSUlin ASPART (NovoLOG) 1 UNIT/0.01 ML (CHARGE PER UNIT) SC SCH ×4 (06:42→21:56)
[2022-02-26] MEDS: LEVOTHYROXINE 100 MCG (LEVOTHROID) TAB PO SCH (06:42)
[2022-02-26] MEDS: ACETAMINOPHEN 325 MG TABLET PO PRN ×2 (06:48→21:18)
[2022-02-26] MEDS: metFORMIN 500 MG (GLUCOPHAGE) TAB PO SCH (07:23)
[2022-02-26] MEDS: GLIMEPIRIDE 1 MG (AMARYL) TAB PO SCH (07:23)
[2022-02-26 07:30] VITALS: BP 102/62
[2022-02-26] MEDS: DOCUSATE SODIUM 100 MG (COLACE) CAP PO SCH ×2 (08:05→21:56)
[2022-02-26] MEDS: polyethylene glycoL POWDER 17 GM (MIRALAX) PACK PO SCH ×2 (08:06→21:56)
[2022-02-26] MEDS: SENNA W/DOCUSATE (SENOKOT S) TABLET PO SCH ×2 (08:06→21:56)
[2022-02-26] MEDS: LOSARTAN 50 MG (COZAAR) TAB PO SCH (08:07)
[2022-02-26] MEDS: PANTOPRAZOLE 40 MG (PROTONIX) TAB PO SCH (08:07)
[2022-02-26] MEDS: AMIODARONE 200 MG (CORDARONE) TAB PO SCH (08:07)
[2022-02-26] MEDS: KCL 10 MEQ TAB (MICRO K) PO SCH ×2 (08:07→21:18)
[2022-02-26] MEDS: AUGMENTIN 500 MG TAB (AMOXICILLIN/CLAVULANATE) PO SCH ×2 (08:07→18:23)
[2022-02-26] MEDS: FUROSEMIDE 40 MG (LASIX) TAB PO SCH (08:07)
--- NOTE | 2022-02-26 08:28 | PM&R Progress Note ---
Subjective HPI/CC On Admission Date Seen by Provider: Feb 26, 2022 Time Seen by Provider: 16:00 Subjective/Events-last exam 02/26/2022: Patient settling in well Sugars lower so will hold Metformin No pain except hip and left shoulder Glucometer assessed at bedside No issues otherwise Review of Systems General: Fatigue, Malaise Musculoskeletal: leg pain Objective Exam Vital Signs Vital Signs Date Time Temp Pulse Resp B/P (MAP) Pulse Ox O2 Delivery O2 Flow Rate FiO2 02/26/22 20:27 38.2 90 16 133/73 (93) 96 Nasal Cannula 1.00 Capillary Refill : General Appearance: No Apparent Distress, WD/WN HEENT: PERRL/EOMI, Normal ENT Inspection, Pharynx Normal Neck: Normal Inspection, Supple Respiratory: No Accessory Muscle Use, No Respiratory Distress Cardiovascular: Regular Rate, Rhythm, No Edema, No Gallop, No JVD, No Murmur, Normal Peripheral Pulses Gastrointestinal: Normal Bowel Sounds, No Organomegaly, No Pulsatile Mass, Non Tender, Soft Back: Normal Inspection, No CVA Tenderness, No Vertebral Tenderness Extremity: Other (left AKA with dressing in place C/D/I) Neurologic/Psychiatric: Alert, Oriented x3 Skin: Normal Color, Warm/Dry Lymphatic: No Adenopathy Results/Procedures Lab Patient resulted labs reviewed. FIM Transfers Therapy Code Descriptions/Definitions Functional [place] Measure: 0=Not Assessed/NA 4=Minimal Assistance 1=Total Assistance 5=Supervision or Setup 2=Maximal Assistance 6=Modified [place] 3=Moderate Assistance 7=Complete IndependenceSCALE: Activities may be completed with or without assistive devices. 7-Yqkrmxansv-qspcvto completes the activity by him/herself with no assistance from a helper. 5-Set-up or Clean-up Assistance-helper sets up or cleans up; patient completes activity. [place] assists only prior to or following the activity. 4-Supervision or Touching Assistance-helper provides verbal cues and/or touching/steadying and/or contact guard assistance as patient completes activity. Assistance may be provided throughout the activity or intermittently. 3-Partial/Moderate Assistance-helper does LESS THAN HALF the effort. [place] lifts, holds or supports trunk or limbs, but provides less than half the effort. 2-Substantial/Maximal Assistance-helper does MORE THAN HALF the effort. [place] lifts or holds trunk or limbs and provides more than half the effort. 2-Gsyobzjwx-oijhlw does ALL the effort. Patient does none of the effort to complete the activity. Or, the assistance of 2 or more helpers is required for the patient to complete the activity. If activity was not attempted, code reason: 7-Patient Refused. 9-Not Applicable-not attempted and the patient did not perform the activity before the current illness, exacerbation or injury. 10-Not Attempted due to Environmental Limitations-(lack of equipment, weather restraints, etc.). 88-Not Attempted due to Medical Conditions or Safety Concerns. Roll Left to Right (QC): 3 Sit to Lying (QC): 3 Sit to Stand (QC): 2 Chair/Ncx-ej-Pacui Xfer(QC): 2 Car Transfer (QC): 2 Gait Training Does the Patient Walk?: No and Walking Goal NOT indicated Walk 10 feet (QC): 88 Walk 50 ft with 2 Turns(QC): 88 Walk 150 ft (QC): 88 Walking 10ft/uneven surface-QC: 88 Wheelchair Training Does the Pt Use a Wheelchair?: Yes Distance: 100'x2 Wheel 50 ft with 2 turns (QC): 4 Wheel 150 ft (QC): 88 Type of Wheelchair: Manual Stair Training 1 Step (curb) (QC): 88 4 Steps (QC): 88 12 Steps (QC): 88 Balance Picking up an Object (QC): 88 ADL-Treatment Eating (QC): 5 (Assistance opening containers) Oral Hygiene (QC): 5 (set up at sink) Shower/Bathe Self (QC): 1 (Assist x2 with sponge bath to help with bed mobility and wiping) Upper Body Dressing (QC): 3 (Mod A. Assist required overhead and slight assistance down trunk.) Lower Body Dressing (QC): 1 (Assist x2) On/Off Footwear (QC): 1 Toileting Hygiene (QC): 1 (Assist x2 for bowel movement. 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
--- NOTE | 2022-02-26 08:29 | Individualized Plan of Care ---
Individualized Plan of Care Rehab Nursing IPOC Order Admission Date Feb 24, 2022 at 11:22 Current Orders Orders Admission Order(Inpt,Obs,Sdc) (02/24/22 10:59) Vital Signs: Per Unit Policy ( 08,16,00 (02/24/22 10:59) Jay Jay Roa (02/24/22 10:59) Sequential Compression Device (02/24/22 10:59) Seismograph Chief-Inpt Rehab Con (02/24/22 10:59) Rehab Nursing Orders-Ipoc (02/24/22 10:59) Physical Therapy Rehab Orders (02/24/22 10:59) Occupational Therapy Rehab Ord (02/24/22 10:59) Speech Therapy Rehab Orders (02/24/22 10:59) Cbc With Automated Diff (02/25/22 06:00) Comprehensive Metabolic Panel (02/25/22 06:00) Precautions (Aru) (02/24/22 10:59) Weekly Weight WEEK (02/24/22 10:59) Rehab-Intensity Of Therapy (02/24/22 10:59) Initiate Admission Nursing Pro .admission (02/24/22 10:59) Alprazolam Tablet (Xanax Tablet) (02/24/22 11:00) Calcium Carbonate Chew Tablet (Antacid C (02/24/22 11:00) Diphenhydramine Tablet (Benadryl Tablet) (02/24/22 11:00) Docusate Sodium Capsule (Colace Capsule) (02/24/22 21:00) Docusate Sodium Capsule (Colace Capsule) (02/24/22 11:00) Bisacodyl Suppository (Dulcolax Supposit (02/24/22 11:00) Lactulose Oral Solution (Enulose Oral So (02/24/22 11:00) Na Phos/Na Biphos Enema (Fleet Enema Thomas (02/24/22 11:00) Guaifenesin/Codeine Syrup (Robitussin Ac (02/24/22 11:00) Loperamide Tablet (Imodium Tablet) (02/24/22 11:00) Melatonin Tablet (Melatonin Tablet) (02/24/22 11:00) Polyethylene Glycol Powder Pkt (Miralax (02/24/22 21:00) Ondansetron Oral Dissolve Tab (Zofran (02/24/22 11:00) Senna S Tablet (Senokot S Tablet) (02/24/22 21:00) Acetaminophen Tablet/Caplet (Tylenol T (02/24/22 11:00) Code/Resuscitation (02/24/22 10:59) Initiate Admission Nursing Pro .admission (02/24/22 10:59) Admission Arrival Bed Request (02/24/22 11:14) Amiodarone Tablet (Cordarone Tablet) (02/25/22 09:00) Docusate Sodium Capsule (Colace Capsule) (02/24/22 11:30) Glimepiride Tablet (Amaryl Tablet) (02/25/22 06:30) Hydrocodone/Apap 10/325 Tablet (Lortab 1 (02/24/22 11:30) Levothyroxine Tablet (Synthroid Tablet) (02/25/22 06:30) Losartan Tablet (Cozaar Tablet) (02/25/22 09:00) Metformin Tablet (Glucophage Tablet) (02/24/22 17:00) Metoprolol Succinate (Xl) Tab (Toprol Xl (02/25/22 09:00) Pantoprazole Tablet (Protonix Tablet) (02/25/22 09:00) (Nf) Furosemide (02/25/22 09:00) Potassium Chloride (Tablet) (Klor Con Ta (02/25/22 07:00) Furosemide Tablet (Lasix Tablet) (02/25/22 09:00) Cho 75g/M 1snack (21-2400 William) (02/24/22 Lunch) Patient Visit (02/24/22 ) Speech Sound Lang Comp (02/24/22 ) Treat. Speech/Lang/Voice (02/24/22 ) Patient Visit (02/23/22 ) Pt Eval Moderate Complexity (02/23/22 ) Functional Activities, Ea 15 (02/23/22 ) Patient Visit (02/23/22 ) Exercise Therap, Ea 15 Min (02/23/22 ) Dressing Order (Intervention) DAILY (02/25/22 13:31) Accucheck Achs ACHS (02/25/22 06:32) Insulin Aspart (Novolog) (Novolog (Charg (02/25/22 11:00) Potassium Chloride (Tablet) (Klor Con Ta (02/25/22 21:00) Patient Visit (02/25/22 ) Exercise Therap, Ea 15 Min (02/25/22 ) Amoxicillin/Clavulanate Tablet (Augmenti (02/25/22 18:00) Lactobacillus Acidophilus Cap (Acidophil (02/26/22 13:00) Cho 75g/M 1snack (21-2400 William) (02/26/22 Dinner) Cbc With Automated Diff (02/27/22 06:00) Comprehensive Metabolic Panel (02/27/22 06:00) Rehab Nursing Orders: Ongoing Assess. of Function Status, Bladder Management, Bladder Scan, Bladder Training, Bowel Management, Bowel Training, Disease Management & Educaiton, DVT Prophylaxis, Fall Prevention, Fluid/Electrolyte/Nutrition Mgmt, Infection Prevention, Medication Management & Education, Management of Risks & Complications, Management of Skin Intergrity, N utrition Management, Pain Management, Patient/Family Support, Safety Management, Weight Bearing Precaution, Wound Management Intensity of Therapy to be met Patient to be seen: Min.3h per day/5 of 7d PT IPOC Problem List: Activity Tolerance, Functional Strength Treatment Plan: Continue Plan of Care Bed Mobility, Education, Functional Activity Lalit, Functional Strength, Group Therapy, Safety, Therapeutic Exercise, Transfers Treatment Duration: Mar 17, 2022 Frequency: At least 5 of 7 days/Wk (IRF) Estimated Hrs Per Day: 1.5 hours per day OT IPOC Problems: Decreased Activ Tolerance, Decreased UE Strength, Impaired Bed Mobility, Impaired Coordination, Impaired Funct Balance, Impaired I ADL's, Impaired Self-Care Skills, Restricted Funct UE ROM OT Treatment, Training and Edu: Yes Plan of Care: ADL Retraining, Caregiver Training, Functional Mobility, Group Exercise/Act as Ind, UE Funct Exercise/Act, W/C Management Training Treatment Duration: Mar 24, 2022 Frequency: At least 5 of 7 days/Wk (IRF) Estimated Hrs Per Day: 1.[address] IPOC Speech Therapy Treatment Plan: Discontinue ST (Per patient request.) Treatment Duration: Feb 24, 2022 Frequency: 1 time per week Estimated Hrs Per Day: .5 hour per day Seismograph Chief/Case Mgmt Seismograph Chief/Case Managemen: Discharge Planning Dietitian/Consumer Affairs Specialist Dietitian/Consumer Affairs Specialist to monitor nutritional status and make changes and/or recommendations as needed and work with speech pathology on dietary upgrades as the occur. Physician IPOC Medical Issues being managed closely and that require the 24 hour availability of a physician: Recent AKA after failed BKA with left shoulder injury and variable sugars and BP will require close monitoring to prevent infection and sepsis Medical Issues: Bowel/Bladder Function, DVT Prophylaxis, Falls Precautions, Fluid/Electrolyte/Nutrition Balance, Infection Protection, Pain Management, Weight Bearing Precautions, Wound Care Brief Synthesis of Preadmission Screen, Post-Admission Evaluation, and Therapy Evaluations: PT OT will focus on regaining function with use of wheelchair and other assistive devices in order to increase independence in order to return home with Medical Prognosis: Good Anticipated Length of Stay: 10 days XIOMARA DICKENS DO Feb 26, 2022 08:29
[2022-02-26] MEDS: LACTOBACILLUS ACIDOPHILUS (PROBIOTIC) CAPSULE PO SCH ×2 (12:59→18:23)
[2022-02-26 20:27] VITALS: BP 133/73
[2022-02-27 06:08] LABS: BASOPHILS # (AUTO) 0.1 10^3/uL (0.0-0.1); BASOPHILS % (AUTO) 0 % (0-10); EOSINOPHILS # (AUTO) 0.1 10^3/uL (0.0-0.3); EOSINOPHILS % (AUTO) 1 % (0-10); HEMATOCRIT 30 % (40-54); HEMOGLOBIN 8.9 g/dL (13.3-17.7); LYMPHOCYTES # (AUTO) 1.1 10^3/uL (1.0-4.0); LYMPHOCYTES % (AUTO) 5 % (12-44); MEAN CORPUSCULAR HEMOGLOBIN 25 pg (25-34); MEAN CORPUSCULAR HGB CONC 29 g/dL (32-36); MEAN CORPUSCULAR VOLUME 85 fL (80-99); MEAN PLATELET VOLUME 12.3 fL (9.0-12.2); MONOCYTES # (AUTO) 1.5 10^3/uL (0.0-1.0); MONOCYTES % (AUTO) 8 % (0-12); NEUTROPHILS # (AUTO) 15.9 10^3/uL (1.8-7.8); NEUTROPHILS % (AUTO) 81 % (42-75); PLATELET COUNT 237 10^3/uL (130-400); WHITE BLOOD COUNT 19.6 10^3/uL (4.3-11.0)
[2022-02-27 06:20] LABS: ALBUMIN 2.7 GM/DL (3.2-4.5)
[2022-02-27 06:21] LABS: CALCIUM 8.6 MG/DL (8.5-10.1)
[2022-02-27 06:22] LABS: TOTAL PROTEIN 6.2 GM/DL (6.4-8.2)
[2022-02-27 06:24] LABS: BILIRUBIN,TOTAL 0.6 MG/DL (0.1-1.0)
[2022-02-27 06:26] LABS: CREATININE SERUM 1.1 MG/DL (0.60-1.30)
--- NOTE | 2022-02-27 06:38 | PM&R Progress Note ---
Subjective HPI/CC On Admission Date Seen by Provider: Feb 27, 2022 Time Seen by Provider: 11:00 Subjective/Events-last exam 02/27/2022: Pt is doing a lot better Sleeps all the time Fever and elevated white count with procalcitonin elevation prompting blood and urine cultures, chest x-ray, and empiric IV antibiotics PICC will be placed 02/26/2022: Patient settling in well Sugars lower so will hold Metformin No pain except hip and left shoulder Glucometer assessed at bedside No issues otherwise Objective Exam Vital Signs Vital Signs Date Time Temp Pulse Resp B/P (MAP) Pulse Ox O2 Delivery O2 Flow Rate FiO2 02/27/22 20:10 Nasal Cannula 1.50 02/27/22 09:00 97 02/27/22 07:31 37.1 91 20 152/76 (101) Capillary Refill : General Appearance: No Apparent Distress, WD/WN HEENT: PERRL/EOMI, Normal ENT Inspection, Pharynx Normal Neck: Normal Inspection, Supple Respiratory: No Accessory Muscle Use, No Respiratory Distress Cardiovascular: Regular Rate, Rhythm, No Edema, No Gallop, No JVD, No Murmur, Normal Peripheral Pulses Gastrointestinal: Normal Bowel Sounds, No Organomegaly, No Pulsatile Mass, Non Tender, Soft Back: Normal Inspection, No CVA Tenderness, No Vertebral Tenderness Extremity: Other (left AKA with dressing in place C/D/I) Neurologic/Psychiatric: Alert, Oriented x3 Skin: Normal Color, Warm/Dry Lymphatic: No Adenopathy Results/Procedures Lab Laboratory Tests 02/27/22 05:28 Patient resulted labs reviewed. FIM Transfers Therapy Code Descriptions/Definitions Functional [place] Measure: 0=Not Assessed/NA 4=Minimal Assistance 1=Total Assistance 5=Supervision or Setup 2=Maximal Assistance 6=Modified [place] 3=Moderate Assistance 7=Complete IndependenceSCALE: Activities may be completed with or without assistive devices. 4-Oonzynotbp-vasypna completes the activity by him/herself with no assistance from a helper. 5-Set-up or Clean-up Assistance-helper sets up or cleans up; patient completes activity. [place] assists only prior to or following the activity. 4-Supervision or Touching Assistance-helper provides verbal cues and/or touching/steadying and/or contact guard assistance as patient completes activity. Assistance may be provided throughout the activity or intermittently. 3-Partial/Moderate Assistance-helper does LESS THAN HALF the effort. [place] lifts, holds or supports trunk or limbs, but provides less than half the effort. 2-Substantial/Maximal Assistance-helper does MORE THAN HALF the effort. [place] lifts or holds trunk or limbs and provides more than half the effort. 8-Iozusjwdx-abwyrn does ALL the effort. Patient does none of the effort to comp lete the activity. Or, the assistance of 2 or more helpers is required for the patient to complete the activity. If activity was not attempted, code reason: 7-Patient Refused. 9-Not Applicable-not attempted and the patient did not perform the activity before the current illness, exacerbation or injury. 10-Not Attempted due to Environmental Limitations-(lack of equipment, weather restraints, etc.). 88-Not Attempted due to Medical Conditions or Safety Concerns. Roll Left to Right (QC): 3 Sit to Lying (QC): 3 Sit to Stand (QC): 2 Chair/Cox-bw-Kjfop Xfer(QC): 2 Car Transfer (QC): 2 Gait Training Does the Patient Walk?: No and Walking Goal NOT indicated Walk 10 feet (QC): 88 Walk 50 ft with 2 Turns(QC): 88 Walk 150 ft (QC): 88 Walking 10ft/uneven surface-QC: 88 Wheelchair Training Does the Pt Use a Wheelchair?: Yes Distance: 100'x2 Wheel 50 ft with 2 turns (QC): 4 Wheel 150 ft (QC): 88 Type of Wheelchair: Manual Stair Training 1 Step (curb) (QC): 88 4 Steps (QC): 88 12 Steps (QC): 88 Balance Picking up an Object (QC): 88 ADL-Treatment Eating (QC): 5 (Assistance opening containers) Oral Hygiene (QC): 5 (set up at sink) Shower/Bathe Self (QC): 1 (Assist x2 with sponge bath to help with bed mobility and wiping) Upper Body Dressing (QC): 3 (Mod A. Assist required overhead and slight assistance down trunk.) Lower Body Dressing (QC): 1 (Assist x2) On/Off Footwear (QC): 1 Toileting Hygiene (QC): 1 (Assist x2 for bowel movement. 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 Fall 02/21/22 resulting in left shoulder injury causing further debility and limiting ADL/independence Severe PVD PAF OAC HTN HLP DM Hypothyroidism Previous hypoglycemia required holding metformin and glimepiride but now on lower dose Constipation resolved Poor venous access requiring PICC 02/27/22 Plan: PT OT w/c mobility Home meds 02/26/2022: Pain control Monitor sugar Hold Metformin 03/10/22: Empiric broad spectrum abx Hold Metformin and OAC PICC line (1) S/P AKA (above knee amputation) (2) Gangrene XIOMARA DICKENS DO Feb 27, 2022 06:38
[2022-02-27] MEDS: inSUlin ASPART (NovoLOG) 1 UNIT/0.01 ML (CHARGE PER UNIT) SC SCH ×4 (06:40→21:15)
[2022-02-27] MEDS: LEVOTHYROXINE 100 MCG (LEVOTHROID) TAB PO SCH (06:44)
[2022-02-27 07:31] VITALS: BP 152/76
[2022-02-27] MEDS: PANTOPRAZOLE 40 MG (PROTONIX) TAB PO SCH (07:45)
[2022-02-27] MEDS: AMIODARONE 200 MG (CORDARONE) TAB PO SCH (07:45)
[2022-02-27] MEDS: AUGMENTIN 500 MG TAB (AMOXICILLIN/CLAVULANATE) PO SCH (07:45)
[2022-02-27] MEDS: LOSARTAN 50 MG (COZAAR) TAB PO SCH (07:45)
[2022-02-27] MEDS: LACTOBACILLUS ACIDOPHILUS (PROBIOTIC) CAPSULE PO SCH ×3 (07:46→18:36)
[2022-02-27] MEDS: KCL 10 MEQ TAB (MICRO K) PO SCH ×2 (07:46→21:11)
[2022-02-27] MEDS: FUROSEMIDE 40 MG (LASIX) TAB PO SCH (07:46)
[2022-02-27] MEDS: polyethylene glycoL POWDER 17 GM (MIRALAX) PACK PO SCH ×2 (09:00→19:48)
[2022-02-27] MEDS: SENNA W/DOCUSATE (SENOKOT S) TABLET PO SCH ×2 (09:00→19:48)
[2022-02-27] MEDS ORDERED: VANCOMYCIN INJECTION 0.1 MG in NS (IVPB) 250 ML IV SCH (09:30)
--- NOTE | 2022-02-27 09:46 | Diagnostic Imaging Report ---
INDICATION: Fever. TIME OF EXAM: 9:25 AM. COMPARISON: No prior studies are available for comparison. FINDINGS: The heart is enlarged. There are changes of median sternotomy and CABG. The right lung is clear. There appears to be some atelectasis in the left base. No effusion or pneumothorax is detected. IMPRESSION: Cardiomegaly and status post CABG with left basilar subsegmental atelectasis. Dictated by: Dictated on workstation # [id number]
[2022-02-27] MEDS ORDERED: PIPERACILLIN SODIUM/TAZOBACTAM 4.5 GM in NS (IVPB) 100 ML IV NR (10:00)
[2022-02-27 10:37] LABS: BILIRUBIN,URINE NEGATIVE (NEGATIVE); CLARITY,URINE CLEAR; COLOR,URINE YELLOW; GLUCOSE, URINE (UA) NEGATIVE (NEGATIVE); KETONES,URINE NEGATIVE (NEGATIVE); LEUKOCYTE ESTERASE ,URINE NEGATIVE (NEGATIVE); NITRITE,URINE NEGATIVE (NEGATIVE); PH,URINE 5.5 (5-9); PROTEIN,URINE NEGATIVE (NEGATIVE)
[2022-02-27 10:44] LABS: AMORPHOUS SEDIMENT,UR FEW AMOR URATES /LPF; BACTERIA,URINE TRACE /HPF; WBC,URINE 0-2 /HPF
[2022-02-27] MEDS ORDERED: VANCOMYCIN 1500 MG/NS 500 ML IVPB IV NR ×2 (11:00)
--- NOTE | 2022-02-27 11:26 | Physical Therapy Daily Note ---
PT Daily Note-Current Subjective Pt sitting in recliner visiting w/Sp upon arrival. Pt agrees to PT/OT co-treat to work on transfers and ADLs. Pain Location: Left Location Body Site: Shoulder Pain Description: Ache Mental Status Patient Orientation: Person, Place, Situation Attachments: Oxygen (1.5L) Transfers SCALE: Activities may be completed with or without assistive devices. 4-Bekhiblzhk-faujmkr completes the activity by him/herself with no assistance from a helper. 5-Set-up or Clean-up Assistance-helper sets up or cleans up; patient completes activity. [place] assists only prior to or following the activity. 4-Supervision or Touching Assistance-helper provides verbal cues and/or touching/steadying and/or contact guard assistance as patient completes activity. Assistance may be provided throughout the activity or intermittently. 3-Partial/Moderate Assistance-helper does LESS THAN HALF the effort. [place] lifts, holds or supports trunk or limbs, but provides less than half the effort. 2-Substantial/Maximal Assistance-helper does MORE THAN HALF the effort. [place] lifts or holds trunk or limbs and provides more than half the effort. 2-Uyximexyf-kjgmea does ALL the effort. Patient does none of the effort to complete the activity. Or, the assistance of 2 or more helpers is required for the patient to complete the activity. If activity was not attempted, code reason: 7-Patient Refused. 9-Not Applicable-not attempted and the patient did not perform the activity before the current illness, exacerbation or injury. 10-Not Attempted due to Environmental Limitations-(lack of equipment, weather restraints, etc.). 88-Not Attempted due to Medical Conditions or Safety Concerns. Sit to Stand (QC): 1 Weight Bearing Full Weight Bearing Exercises Seated Therapy Exercises: Sit to stand Seated Reps: 5 Treatments Need for two clinicians that otherwise could not be completed by a accounts payable technician due to need for coordination of sequncing UE & LE for transfers, decreased activity tolerance and fear of falling, also seeing retropulsive due to this fact. Pt is seen by Dr Chappell to start tx. Pt is given instruction on proper tech. for standing. Radiology arrives for stat xray before PT & OT continue work on standing. Pt attempts standing from recliner x5 with RB between attempts. Pt was to TF from recliner to standing to shower chair but pt demonstrates both fear of falling and weakness and slightly retropulsive. Pt needs a lot of reass urance and explanation of sequencing. Pt remains in recliner after PT departs & OT continues to work on UE strengthening. Assessment Current Status: Fair Progress Weakness & fear of falling limit transfers, requiring more assistance than should require. PT Short Term Goals Short Term Goals Time Frame: Mar 03, 2022 Roll Left & Right: 4 Sit to lyin (Batsheva) Lying to sitting on side of be: 3 (Batsheva) Sit to stand: 3 (modA) Chair/yws-iu-qnntx transfer: 3 (modA) PT Half-Way Goals Half-Way Goals PT Agricultural Consultant Goals Time Frame: Mar 17, 2022 Roll Left & Right (QC): 6 Sit to Lying (QC): 4 (SBA) Lying-Sitting on Side/Bed(QC): 4 (SBA) Sit to Stand (QC): 3 (Batsheva) Chair/Dkg-to-Vcver Xfer(QC): 3 (Batsheva) Toilet Transfer (QC): 3 (Batsheva) Car Transfer (QC): 3 (Batsheva) Does the Patient Walk: No and Walking Goal NOT indicated Walk 10 feet (QC): 88 Walk 50ft with 2 Turns (QC): 88 Walk 150 ft (QC): 88 Walking 10ft on Uneven Surface: 88 1 Step (curb) (QC): 88 4 Steps (QC): 88 12 Steps (QC): 88 Picking up an Object (QC): 88 Wheel 50 feet with 2 turns (QC: 6 Wheel 150 feet: 6 PT Plan Problem List Problem List: Activity Tolerance, Functional Strength, Safety, Balance, Transfer Treatment/Plan Treatment Plan: Continue Plan of Care Treatment Plan: Bed Mobility, Education, Functional Activity Lalit, Functional Strength, Group Therapy, Safety, Therapeutic Exercise, Transfers Treatment Duration: Mar 17, 2022 Frequency: At least 5 of 7 days/Wk (IRF) Estimated Hrs Per Day: 1.5 hours per day Patient and/or Family Agrees t: Yes Safety Risks/Education Patient Education: Transfer Techniques, Correct Positioning, Safety Issues Teaching Recipient: Patient, Significant Other Teaching Methods: Demonstration, Discussion Response to Teaching: Verbalize Understanding, Return Demonstration Time/GCodes Time In: 900 Time Out: 1000 Total Billed Treatment Time: 60 Total Billed Treatment 1, FA x4 (60m) Co-treat for 60m JALEESA MONIQUE WORKERS COMPENSATION PAR[place]GAL Feb 27, 2022 11:26
[2022-02-27] MEDS: DOCUSATE SODIUM 100 MG (COLACE) CAP PO SCH ×2 (11:29→19:46)
--- NOTE | 2022-02-27 11:56 | Occupational Ther Daily Note ---
OT Current Status-Daily Note Subjective Pt stated that he is doing better today and agreeable to OT/PT cotreat. Family member in room during therapy tx. Mental Status/Objective Patient Orientation: Normal For Age ADL-Treatment Therapy Code Descriptions/Definitions Functional [place] Measure: 0=Not Assessed/NA 4=Minimal Assistance 1=Total Assistance 5=Supervision or Setup 2=Maximal Assistance 6=Modified [place] 3=Moderate Assistance 7=Complete IndependenceSCALE: Activities may be completed with or without assistive devices. 1-Cnceosfmvs-mhotzlg completes the activity by him/herself with no assistance from a helper. 5-Set-up or Clean-up Assistance-helper sets up or cleans up; patient completes activity. [place] assists only prior to or following the activity. 4-Supervision or Touching Assistance-helper provides verbal cues and/or touching/steadying and/or contact guard assistance as patient completes activity. Assistance may be provided throughout the activity or intermittently. 3-Partial/Moderate Assistance-helper does LESS THAN HALF the effort. [place] lifts, holds or supports trunk or limbs, but provides less than half the effort. 2-Substantial/Maximal Assistance-helper does MORE THAN HALF the effort. [place] lifts or holds trunk or limbs and provides more than half the effort. 7-Qaubxsjis-utwbtl does ALL the effort. Patient does none of the effort to complete the activity. Or, the assistance of 2 or more helpers is required for the patient to complete the activity. If activity was not attempted, code reason: 7-Patient Refused. 9-Not Applicable-not attempted and the patient did not perform the activity before the current illness, exacerbation or injury. 10-Not Attempted due to Environmental Limitations-(lack of equipment, weather restraints, etc.). 88-Not Attempted due to Medical Conditions or Safety Concerns. Other Treatment OT/PT cotreat ([id number]): PT/OT cotreat required due to the skill required from therapist that a rehabilitation attendant does not possess. PT focusing on LB strengthening, LE placement during transfer and standing balance. OT focusing on ADLs, UB strengthening, and UE placement during transfers. Pt attempted to standing to transfer to shower chair 5x, requiring Max cues to stand and 2x assist with FWW. With each stand, pt stated that he would like to pull on walker to stand. Sanam woods stated that when pulling on FWW, the FWW will fall back on pt. Pt verabalized understanding. Pt is unable to stand fully at FWW at this time, but pt is willing to continue to try. Pt states concern with moving L UE to FWW during stand and possibly resulting in fall. Therapist stated possible ideas to help with this concern and will attempt at next session. OT tx: Pt completed oral hygiene and face wshing while sitting in recliner. Therapist completed PROM on LUE to increase ROM and decrease pain. Throughout PROM tx, pt stated that his pain level was at a 3 at full ROM. Pt then completed yellow theraband exercises on RUE to increase strength and activity tolerance, completing elbow flexion/extension, shoulder horizontal abduction/adduction 10 reps each. Pt in recliner with call light in reach and all needs met. Education OT Patient Education: Transfer techniques Teaching Recipient: Patient, Family Teaching Methods: Discussion Response to Teaching: Verbalize Understanding OT Short Term Goals Short Term Goals Time Frame: Mar 08, 2022 Toileting hygiene: 2 Shower/bathe self: 3 Lower body dressin Putting on/taking off footwear: 3 OT Track Superintendent Goals Senior Living Goals Time Frame: Mar 24, 2022 Eating (QC): 6 Oral Hygiene (QC): 6 Toileting Hygiene (QC): 3 (bowel movements on toilet) Shower/Bathe Self (QC): 4 Upper Body Dressing (QC): 5 Lower Body Dressing (QC): 3 On/Off Footwear (QC): 4 Additional Goals: 1-Demonstrate ADL Tasks, 2-Verbalize Understanding, 3- ImproveStrength/Lalit 1=Demonstrate adherence to instructed precautions during ADL tasks. 2=Patient will verbalize/demonstrate understanding of assistive devices/modifications for ADL. 3=Patient will improve strength/tolerance for activity to enable patient to perform ADL's. OT Education/Plan Problem List/Assessment Assessment: Decreased Activ Tolerance, Decreased UE Strength, Impaired Funct Balance, Impaired I ADL's, Impaired Self-Care Skills Discharge Recommendations Plan/Recommendations: Continue POC Treatment Plan/Plan of Care Patient would benefit from OT for education, treatment and training to promote independence in ADL's, mobility, safety and/or upper extremity function for ADL's. Plan of Care: ADL Retraining, Caregiver Training, Functional Mobility, Group Exercise/Act as Ind, UE Funct Exercise/Act, W/C Management Training Treatment Duration: Mar 24, 2022 Frequency: At least 5 of 7 days/Wk (IRF) Estimated Hrs Per Day: 1.5 hours per day Rehab Potential: Guarded Time/GCodes Start Time: 09:00 Stop Time: 10:30 Total Time Billed (hr/min): 90 Billed Treatment Time 1 visit, 3 EX (40min), 2 FA (30min), 1 ADL (20min) Elsa Rdz Feb 27, 2022 11:56
--- NOTE | 2022-02-27 12:16 | Diagnostic Imaging Report ---
Indication: PICC line placement Frontal chest obtained at 1145 a.m. compared to same day at 9:25 a.m. There is cardiomegaly and poststernotomy change. There are chronic appearing increased residual markings. There is no pneumothorax or gross pleural fluid. New right-sided PICC line tip overlies low SVC. IMPRESSION: New right-sided PICC line tip overlies low SVC. Otherwise no change compared to earlier today. Dictated by: Dictated on workstation # [id number]
[2022-02-27] MEDS: NS IV 1000 ML 1,000 ML IV SCH (12:30)
--- NOTE | 2022-02-27 14:30 | Physical Therapy Daily Note ---
PT Daily Note-Current Subjective Pt laying Supine in bed upon arrival. Pt agrees to PT. Mental Status Patient Orientation: Person, Confused, Place Transfers SCALE: Activities may be completed with or without assistive devices. 6-Yjgcsmfnya-bbfvgra completes the activity by him/herself with no assistance from a helper. 5-Set-up or Clean-up Assistance-helper sets up or cleans up; patient completes activity. [place] assists only prior to or following the activity. 4-Supervision or Touching Assistance-helper provides verbal cues and/or touching/steadying and/or contact guard assistance as patient completes activity. Assistance may be provided throughout the activity or intermittently. 3-Partial/Moderate Assistance-helper does LESS THAN HALF the effort. [place] lifts, holds or supports trunk or limbs, but provides less than half the effort. 2-Substantial/Maximal Assistance-helper does MORE THAN HALF the effort. [place] lifts or holds trunk or limbs and provides more than half the effort. 1-Lggseillb-evwbco does ALL the effort. Patient does none of the effort to complete the activity. Or, the assistance of 2 or more helpers is required for the patient to complete the activity. If activity was not attempted, code reason: 7-Patient Refused. 9-Not Applicable-not attempted and the patient did not perform the activity before the current illness, exacerbation or injury. 10-Not Attempted due to Environmental Limitations-(lack of equipment, weather restraints, etc.). 88-Not Attempted due to Medical Conditions or Safety Concerns. Roll Left & Right (QC): 5 Weight Bearing Full Weight Bearing Exercises Supine Ex: Ankle pumps, Quad Set, Glut sets, Heel Slides, Straight leg raise, Hip abd/add Supine Reps: 15 Treatments Pt completes Supine EX in bed as well as pt educ. on need for continued movemen t/Therapy for continued strength to improve transfers. Pt repositioned in bed to comfort. Pt resting in bed at end of tx with all needs met,call light in hand. Assessment Current Status: Fair Progress Pt needs encouragement to push self for progress for improved independence of task. PT Short Term Goals Short Term Goals Time Frame: Mar 03, 2022 Roll Left & Right: 4 Sit to lyin (Batsheva) Lying to sitting on side of be: 3 (Batsheva) Sit to stand: 3 (modA) Chair/hkv-nf-jgqfs transfer: 3 (modA) PT Intermediate Goals Chinese Instructor Goals PT Intermediate Goals Time Frame: Mar 17, 2022 Roll Left & Right (QC): 6 Sit to Lying (QC): 4 (SBA) Lying-Sitting on Side/Bed(QC): 4 (SBA) Sit to Stand (QC): 3 (Batsheva) Chair/Ibx-qr-Ucyyj Xfer(QC): 3 (Batsheva) Toilet Transfer (QC): 3 (Batsheva) Car Transfer (QC): 3 (Batsheva) Does the Patient Walk: No and Walking Goal NOT indicated Walk 10 feet (QC): 88 Walk 50ft with 2 Turns (QC): 88 Walk 150 ft (QC): 88 Walking 10ft on Uneven Surface: 88 1 Step (curb) (QC): 88 4 Steps (QC): 88 12 Steps (QC): 88 Picking up an Object (QC): 88 Wheel 50 feet with 2 turns (QC: 6 Wheel 150 feet: 6 PT Plan Problem List Problem List: Activity Tolerance, Functional Strength Treatment/Plan Treatment Plan: Continue Plan of Care Treatment Plan: Bed Mobility, Education, Functional Activity Lalit, Functional Strength, Group Therapy, Safety, Therapeutic Exercise, Transfers Treatment Duration: Mar 17, 2022 Frequency: At least 5 of 7 days/Wk (IRF) Estimated Hrs Per Day: 1.5 hours per day Patient and/or Family Agrees t: Yes Safety Risks/Education Patient Education: Correct Positioning Teaching Recipient: Patient Teaching Methods: Discussion Response to Teaching: Verbalize Understanding Time/GCodes Time In: 1400 Time Out: 1430 Total Billed Treatment Time: 30 Total Billed Treatment 1, FA (10m) & EX (20m) JALEESA MONIQUE RELATIONSHIP BANKER Feb 27, 2022 14:30
[2022-02-27] MEDS ORDERED: PIPERACILLIN SODIUM/TAZOBACTAM 4.5 GM in NS (IVPB) 100 ML IV SCH (16:00)
[2022-02-27] MEDS: PIPERACILLIN SODIUM/TAZOBACTAM 4.5 GM in NS (IVPB) 100 ML IV SCH (18:36)
[2022-02-27 20:00] VITALS: BP 103/72
[2022-02-27] MEDS: ACETAMINOPHEN 325 MG TABLET PO PRN (21:11)
[2022-02-28] MEDS: PIPERACILLIN SODIUM/TAZOBACTAM 4.5 GM in NS (IVPB) 100 ML IV SCH ×3 (03:31→18:34)
[2022-02-28] MEDS: NS IV 1000 ML 1,000 ML IV SCH ×2 (04:32→23:51)
[2022-02-28] MEDS: inSUlin ASPART (NovoLOG) 1 UNIT/0.01 ML (CHARGE PER UNIT) SC SCH ×4 (05:58→20:30)
--- NOTE | 2022-02-28 06:23 | PM&R Progress Note ---
Subjective HPI/CC On Admission Date Seen by Provider: Feb 28, 2022 Time Seen by Provider: 11:00 Subjective/Events-last exam 02/28/2022: Pt is doing well Mild hypotension not due to sepsis so will give 500 ccs bolus IV fluids 60 an hour Decrease procalcitonin Zosyn and Vancomycin maintained 02/27/2022: Pt is doing a lot better Sleeps all the time Fever and elevated white count with procalcitonin elevation prompting blood and urine cultures, chest x-ray, and empiric IV antibiotics PICC will be placed 02/26/2022: Patient settling in well Sugars lower so will hold Metformin No pain except hip and left shoulder Glucometer assessed at bedside No issues otherwise Review of Systems General: Fatigue, Malaise Neurological: Weakness Objective Exam Vital Signs Vital Signs Date Time Temp Pulse Resp B/P (MAP) Pulse Ox O2 Delivery O2 Flow Rate FiO2 02/28/22 20:00 Nasal Cannula 1.50 02/28/22 20:00 36.8 80 20 109/48 (68) 98 Capillary Refill : General Appearance: No Apparent Distress, WD/WN HEENT: PERRL/EOMI, Normal ENT Inspection, Pharynx Normal Neck: Normal Inspection, Supple Respiratory: No Accessory Muscle Use, No Respiratory Distress Cardiovascular: Regular Rate, Rhythm, No Edema, No Gallop, No JVD, No Murmur, Normal Peripheral Pulses Gastrointestinal: Normal Bowel Sounds, No Organomegaly, No Pulsatile Mass, Non Tender, Soft Back: Normal Inspection, No CVA Tenderness, No Vertebral Tenderness Extremity: Other (left AKA with dressing in place C/D/I) Neurologic/Psychiatric: Alert, Oriented x3 Skin: Normal Color, Warm/Dry Lymphatic: No Adenopathy Results/Procedures Lab Laboratory Tests 02/28/22 06:55 Patient resulted labs reviewed. FIM Transfers Therapy Code Descriptions/Definitions Functional [place] Measure: 0=Not Assessed/NA 4=Minimal Assistance 1=Total Assistance 5=Supervision or Setup 2=Maximal Assistance 6=Modified [place] 3=Moderate Assistance 7=Complete IndependenceSCALE: Activities may be completed with or without assistive devices. 7-Mbpqsbcpry-glqdnxk completes the activity by him/herself with no assistance from a helper. 5-Set-up or Clean-up Assistance-helper sets up or cleans up; patient completes activity. [place] assists only prior to or following the activity. 4-Supervision or Touching Assistance-helper provides verbal cues and/or touching/steadying and/or contact guard assistance as patient completes activ ity. Assistance may be provided throughout the activity or intermittently. 3-Partial/Moderate Assistance-helper does LESS THAN HALF the effort. [place] lifts, holds or supports trunk or limbs, but provides less than half the effort. 2-Substantial/Maximal Assistance-helper does MORE THAN HALF the effort. [place] lifts or holds trunk or limbs and provides more than half the effort. 8-Ztappqsxx-ybmsgq does ALL the effort. Patient does none of the effort to complete the activity. Or, the assistance of 2 or more helpers is required for the patient to complete the activity. If activity was not attempted, code reason: 7-Patient Refused. 9-Not Applicable-not attempted and the patient did not perform the activity before the current illness, exacerbation or injury. 10-Not Attempted due to Environmental Limitations-(lack of equipment, weather restraints, etc.). 88-Not Attempted due to Medical Conditions or Safety Concerns. Roll Left to Right (QC): 5 Sit to Lying (QC): 3 Sit to Stand (QC): 1 Chair/Bbp-cf-Rcbgt Xfer(QC): 2 Car Transfer (QC): 2 Gait Training Does the Patient Walk?: No and Walking Goal NOT indicated Walk 10 feet (QC): 88 Walk 50 ft with 2 Turns(QC): 88 Walk 150 ft (QC): 88 Walking 10ft/uneven surface-QC: 88 Wheelchair Training Does the Pt Use a Wheelchair?: Yes Distance: 100'x2 Wheel 50 ft with 2 turns (QC): 4 Wheel 150 ft (QC): 88 Type of Wheelchair: Manual Stair Training 1 Step (curb) (QC): 88 4 Steps (QC): 88 12 Steps (QC): 88 Balance Picking up an Object (QC): 88 ADL-Treatment Eating (QC): 5 (Assistance opening containers) Oral Hygiene (QC): 5 (set up at sink) Shower/Bathe Self (QC): 1 (Assist x2 with sponge bath to help with bed mobility and wiping) Upper Body Dressing (QC): 3 (Mod A. Assist required overhead and slight assistance down trunk.) Lower Body Dressing (QC): 1 (Assist x2) On/Off Footwear (QC): 1 Toileting Hygiene (QC): 1 (Assist x2 for bowel movement. 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
[2022-02-28] MEDS: LEVOTHYROXINE 100 MCG (LEVOTHROID) TAB PO SCH (06:48)
[2022-02-28 07:13] LABS: BASOPHILS % (AUTO) 0 % (0-10); EOSINOPHILS # (AUTO) 0.1 10^3/uL (0.0-0.3); EOSINOPHILS % (AUTO) 1 % (0-10); HEMATOCRIT 25 % (40-54); HEMOGLOBIN 7.4 g/dL (13.3-17.7); LYMPHOCYTES # (AUTO) 0.6 10^3/uL (1.0-4.0); LYMPHOCYTES % (AUTO) 4 % (12-44); MEAN CORPUSCULAR HEMOGLOBIN 25 pg (25-34); MEAN CORPUSCULAR HGB CONC 30 g/dL (32-36); MEAN CORPUSCULAR VOLUME 82 fL (80-99); MEAN PLATELET VOLUME 11.8 fL (9.0-12.2); MONOCYTES # (AUTO) 0.9 10^3/uL (0.0-1.0); MONOCYTES % (AUTO) 6 % (0-12); NEUTROPHILS # (AUTO) 13.7 10^3/uL (1.8-7.8); NEUTROPHILS % (AUTO) 88 % (42-75); PLATELET COUNT 227 10^3/uL (130-400); WHITE BLOOD COUNT 15.6 10^3/uL (4.3-11.0)
[2022-02-28 07:27] LABS: ALBUMIN 2.3 GM/DL (3.2-4.5); BILIRUBIN,TOTAL 0.5 MG/DL (0.1-1.0); CALCIUM 8.2 MG/DL (8.5-10.1); CREATININE SERUM 1.02 MG/DL (0.60-1.30); POTASSIUM 4.3 MMOL/L (3.6-5.0); TOTAL PROTEIN 5.1 GM/DL (6.4-8.2)
[2022-02-28 08:00] VITALS: BP 94/58
[2022-02-28] MEDS: LOSARTAN 50 MG (COZAAR) TAB PO SCH (09:00)
[2022-02-28] MEDS ORDERED: NS IV 500 ML 500 ML IV SCH ×2 (09:00)
[2022-02-28] MEDS: FUROSEMIDE 40 MG (LASIX) TAB PO SCH (09:11)
[2022-02-28] MEDS: LACTOBACILLUS ACIDOPHILUS (PROBIOTIC) CAPSULE PO SCH ×3 (09:11→17:13)
[2022-02-28] MEDS: KCL 10 MEQ TAB (MICRO K) PO SCH ×2 (09:11→20:23)
[2022-02-28] MEDS: PANTOPRAZOLE 40 MG (PROTONIX) TAB PO SCH (09:11)
[2022-02-28] MEDS: HYPOCHLOROUS ACID/NaCl (VASHE) 250 ML IR PRN (09:14)
[2022-02-28] MEDS: DOCUSATE SODIUM 100 MG (COLACE) CAP PO SCH ×2 (09:14→19:36)
[2022-02-28] MEDS: SENNA W/DOCUSATE (SENOKOT S) TABLET PO SCH ×2 (09:15→19:36)
[2022-02-28] MEDS: polyethylene glycoL POWDER 17 GM (MIRALAX) PACK PO SCH ×2 (09:15→19:36)
--- NOTE | 2022-02-28 10:10 | Occupational Ther Daily Note ---
OT Current Status-Daily Note Subjective Pt supine in bed at beginning of tx, agreeable to OT/PT cotreat. Mental Status/Objective Attachments: IV, Oxygen ADL-Treatment Therapy Code Descriptions/Definitions Functional [place] Measure: 0=Not Assessed/NA 4=Minimal Assistance 1=Total Assistance 5=Supervision or Setup 2=Maximal Assistance 6=Modified [place] 3=Moderate Assistance 7=Complete IndependenceSCALE: Activities may be completed with or without assistive devices. 6-Qfqiythjat-oucqdcx completes the activity by him/herself with no assistance from a helper. 5-Set-up or Clean-up Assistance-helper sets up or cleans up; patient completes activity. [place] assists only prior to or following the activity. 4-Supervision or Touching Assistance-helper provides verbal cues and/or touching/steadying and/or contact guard assistance as patient completes activity. Assistance may be provided throughout the activity or intermittently. 3-Partial/Moderate Assistance-helper does LESS THAN HALF the effort. [place] lifts, holds or supports trunk or limbs, but provides less than half the effort. 2-Substantial/Maximal Assistance-helper does MORE THAN HALF the effort. [place] lifts or holds trunk or limbs and provides more than half the effort. 1-Bgsvwjvsc-lacrga does ALL the effort. Patient does none of the effort to complete the activity. Or, the assistance of 2 or more helpers is required for the patient to complete the activity. If activity was not attempted, code reason: 7-Patient Refused. 9-Not Applicable-not attempted and the patient did not perform the activity before the current illness, exacerbation or injury. 10-Not Attempted due to Environmental Limitations-(lack of equipment, weather restraints, etc.). 88-Not Attempted due to Medical Conditions or Safety Concerns. Other Treatment OT/PT cotreat ([id number]): PT/OT cotreat required due to the skill required from therapist that a rehabilitation liaison does not possess. PT focusing on LB strengthening, LE placement during transfer and standing balance. OT focusing on ADLs, UB strengthening, and UE placement during transfers. Pt transferred from supine to EOB with assist 2x to pull self out of supine position. Pt then completed bed bath with assist x2 dep with assistance to cleanse back, RUE, bottom, and LE. During bed bath, pt attempted to stand 3x to cleanse bottom with max cues for UE placement and to sequence through standing process.Pt required ModA for UB dressing with verbal and tactile cues for UE placement and for squencing through task. Pt required assist x2 Dep for LB dressing for balance while standing and Max cues to stand from EOB for UE placement and to push through LE. Pt completed oral hygiene EOB with SBA with set up. Pt transferred from EOB to supine with ModA for cueing through task and assistance with UB placement. OT tx ([id number]): Pt completed RUE strengthening with yellow theraband to increase R strength and activity tolerance. Therapist provided PROM on LUE to increase ROM and decrease pain. Pt supine in bed with call light and phone in reach with all needs met. Education OT Patient Education: Transfer techniques Teaching Recipient: Patient, Family Teaching Methods: Discussion Response to Teaching: Verbalize Understanding OT Short Term Goals Short Term Goals Time Frame: Mar 08, 2022 Toileting hygiene: 2 Shower/bathe self: 3 Lower body dressin Putting on/taking off footwear: 3 OT Natural Developer Goals Natural Developer Goals Time Frame: Mar 24, 2022 Eating (QC): 6 Oral Hygiene (QC): 6 Toileting Hygiene (QC): 3 (bowel movements on toilet) Shower/Bathe Self (QC): 4 Upper Body Dressing (QC): 5 Lower Body Dressing (QC): 3 On/Off Footwear (QC): 4 Additional Goals: 1-Demonstrate ADL Tasks, 2-Verbalize Understanding, 3- ImproveStrength/Lalit 1=Demonstrate adherence to instructed precautions during ADL tasks. 2=Patient will verbalize/demonstrate understanding of assistive devices/modifications for ADL. 3=Patient will improve strength/tolerance for activity to enable patient to perform ADL's. OT Education/Plan Problem List/Assessment Assessment: Decreased Activ Tolerance, Decreased UE Strength, Impaired Bed Mobility, Impaired Funct Balance, Impaired I ADL's, Impaired Self-Care Skills Discharge Recommendations Plan/Recommendations: Continue POC Treatment Plan/Plan of Care Patient would benefit from OT for education, treatment and training to promote independence in ADL's, mobility, safety and/or upper extremity function for ADL's. Plan of Care: ADL Retraining, Caregiver Training, Functional Mobility, Group Exercise/Act as Ind, UE Funct Exercise/Act, W/C Management Training Treatment Duration: Mar 24, 2022 Frequency: At least 5 of 7 days/Wk (IRF) Estimated Hrs Per Day: 1.5 hours per day Rehab Potential: Guarded Time/GCodes Start Time: 08:00 Stop Time: 09:30 Total Time Billed (hr/min): 90 Billed Treatment Time 1 visit, 3 ADL (50min), FA (20min), EX (20min) Elsa Rdz Feb 28, 2022 10:10
[2022-02-28] MEDS: VANCOMYCIN 1 GM/NS 250 ML IVPB IV SCH ×2 (10:24)
--- NOTE | 2022-02-28 10:36 | Physical Therapy Daily Note ---
PT Daily Note-Current Subjective Pt laying Supine in bed with Sp present upon arrival. Pt agrees to PT/OT co- treat. Pain Location: Incisional, Left Pain Description: Ache Comment: Reports but doesn't rate Mental Status Patient Orientation: Person, Place Attachments: Oxygen, IV Transfers SCALE: Activities may be completed with or without assistive devices. 8-Homtysttuc-rneuusb completes the activity by him/herself with no assistance from a helper. 5-Set-up or Clean-up Assistance-helper sets up or cleans up; patient completes activity. [place] assists only prior to or following the activity. 4-Supervision or Touching Assistance-helper provides verbal cues and/or touching/steadying and/or contact guard assistance as patient completes activity. Assistance may be provided throughout the activity or intermittently. 3-Partial/Moderate Assistance-helper does LESS THAN HALF the effort. [place] lifts, holds or supports trunk or limbs, but provides less than half the effort. 2-Substantial/Maximal Assistance-helper does MORE THAN HALF the effort. [place] lifts or holds trunk or limbs and provides more than half the effort. 3-Rdjybgdsm-duflak does ALL the effort. Patient does none of the effort to complete the activity. Or, the assistance of 2 or more helpers is required for the patient to complete the activity. If activity was not attempted, code reason: 7-Patient Refused. 9-Not Applicable-not attempted and the patient did not perform the activity before the current illness, exacerbation or injury. 10-Not Attempted due to Environmental Limitations-(lack of equipment, weather restraints, etc.). 88-Not Attempted due to Medical Conditions or Safety Concerns. Lying to Sitting/Side of Bed(Q: 1 Sit to Stand (QC): 1 Weight Bearing Full Weight Bearing Treatments OT/PT cotreat ([id number]): PT/OT cotreat required due to the skill required from therapist that a rehabilitation center manager does not possess. PT focusing on LB strengthening, LE placement during transfer and standing balance. OT focusing on ADLs, UB strengthening, and UE placement during transfers. Pt transferred from supine to EOB with assist 2x to pull self out of supine position. Pt then completed bed bath with assist x2 dep with assistance to cleanse back, RUE, bottom, and LE. During bed bath, pt attempted to stand 3x to cleanse bottom with max cues for UE placement and to sequence through standing process.Pt required ModA for UB dressing with verbal and tactile cues for UE placement and for sequencing through task. Pt required assist x2 Dep for LB dressing for balance while standing and Max cues to stand from EOB for UE placement and to push through LE. Pt completed oral hygiene EOB with SBA with set up. Assessment Current Status: Fair Progress Fear of falling leads to increased VC for sequencing and increased encouragement that pt won't fall. PT Short Term Goals Short Term Goals Time Frame: Mar 03, 2022 Roll Left & Right: 4 Sit to lyin (Batsheva) Lying to sitting on side of be: 3 (Batsheva) Sit to stand: 3 (modA) Chair/bow-el-igugl transfer: 3 (modA) PT Seasonal Driver Goals Seasonal Driver Goals PT Residential Goals Time Frame: Mar 17, 2022 Roll Left & Right (QC): 6 Sit to Lying (QC): 4 (SBA) Lying-Sitting on Side/Bed(QC): 4 (SBA) Sit to Stand (QC): 3 ([place]va) Chair/Kli-qa-Otcvw Xfer(QC): 3 (Batsheva) Toilet Transfer (QC): 3 (Batsheva) Car Transfer (QC): 3 (Batsheva) Does the Patient Walk: No and Walking Goal NOT indicated Walk 10 feet (QC): 88 Walk 50ft with 2 Turns (QC): 88 Walk 150 ft (QC): 88 Walking 10ft on Uneven Surface: 88 1 Step (curb) (QC): 88 4 Steps (QC): 88 12 Steps (QC): 88 Picking up an Object (QC): 88 Wheel 50 feet with 2 turns (QC: 6 Wheel 150 feet: 6 PT Plan Problem List Problem List: Activity Tolerance, Functional Strength, Balance, Transfer Treatment/Plan Treatment Plan: Continue Plan of Care Treatment Plan: Bed Mobility, Education, Functional Activity Lalit, Functional Strength, Group Therapy, Safety, Therapeutic Exercise, Transfers Treatment Duration: Mar 17, 2022 Frequency: At least 5 of 7 days/Wk (IRF) Estimated Hrs Per Day: 1.5 hours per day Patient and/or Family Agrees t: Yes Safety Risks/Education Patient Education: Transfer Techniques, Correct Positioning Teaching Recipient: Patient Teaching Methods: Discussion Response to Teaching: Verbalize Understanding Time/GCodes Time In: 800 Time Out: 900 Total Billed Treatment Time: 60 Total Billed Treatment Co-treat for 60m 1, FA x2 (30m) & EX x2 (30m) JALEESA MONIQUE MANAGER OF ORGANIZATIONAL DEVELOPMENT Feb 28, 2022 10:36
[2022-02-28] MEDS: AMIODARONE 200 MG (CORDARONE) TAB PO SCH (12:59)
--- NOTE | 2022-02-28 14:56 | Consultation-Cardiology ---
HPI-Cardiology Cardiology Consultation: Date of Consultation 02/28/22 Time Seen by a Provider: 14:30 Date of Admission 02-24-22 Attending Physician Saw Lai MD Admitting Physician Admitting Physician: Cierra Dickens DO Attending Physician: Cierra Dickens DO Consulting Physician Danny Kerns MD Primary House Sitter: Dr. Sánchez ([facility] [place] [facility]) HPI: Chief Complaint: Hypotension Mr. Coffey is a 71 yr old male who has been seen in 233. We have been consulted by Dr. Dickens d/t episode of hypotension, asymptomatic, this morning. In late January 2022 he underwent L BKA at [facility]. He was admitted to IRU here following that surgery. He then developed a gangrenous wound to the L BKA stump. He subsequently underwent R AKA by Dr. Perez on 02-23-22. His primary investigator welfare is Dr. Sánchez at [facility]. He denies any c/o CP, SOB or palpitations. His spouse is at the bedside. Review of Systems-Cardiology Review of Systems Constitutional: No chills, No fever, No malaise Eyes: No vision change Ears/Nose/Throat: No epistaxis, No recent hearing loss Respiratory: As described under HPI Cardiovascular: As described under HPI Gastrointestinal: No diarrhea, No nausea, No vomiting Genitourinary: No dysuria Musculoskeletal: other (left shoulder pain) Skin: other (abrasion to right leg; dressing to left leg stump) Psychiatric/Neurological: No anxiety, No depression, No seizure, No focal weakness, No syncope Hematologic: No bleeding abnormalities All Other Systems Reviewed Negative Unless Noted: Yes UPN-Wooyec-Dlvqvo Hx Patient Social History Marrital Status: Employed/Student: retired Smoking Status: Former Smoker 2nd Hand Smoke Exposure: No Alcohol Use?: No Pt feels they are or have been: No Immunizations Up To Date Tetanus Booster (TDap): Unknown Past Medical History PMH As described under Assessment. Family Medical History Family Medical History: He does not report any family h/o CAD. Allergies and Home Medications Allergies Coded Allergies: gabapentin (Verified Allergy, Unknown, 02/22/22) nightmares lisinopril (Verified Allergy, Unknown, 02/10/22) niacin (Verified Allergy, Unknown, 02/10/22) oxycodone (Verified Allergy, Unknown, 02/10/22) rivaroxaban (Verified Allergy, Unknown, 02/10/22) Uncoded Allergies: CI Pigment Blue 63 (Adverse Reaction, Severe, Itching, 02/10/22) Patient Home Medication List Amiodarone HCl (Amiodarone HCl) 200 Mg Tablet, 200 MG PO DAILY, (Reported) Entered as Reported by: JOSE MANUEL HARRELL on 02/10/22 1244 Last Action: Continued Docusate Sodium (Docusate Sodium) 100 Mg Capsule, 100 MG PO BID PRN for CONSTIPATION-1ST LINE, (Reported) Entered as Reported by: JOSE MANUEL HARRELL on 02/17/22 124 Last Action: Continued Furosemide (Furosemide) 80 Mg Tablet, 80 MG PO DAILY, (Reported) Entered as Reported by: JOSE MANUEL HARRELL on 02/10/22 124 Last Action: Converted Glimepiride (Amaryl) 1 Mg Tab, 0.5 MG PO DAILY@0630 Prescribed by: CIERRA DICKENS on 02/22/22 1050 Last Action: Continued Hydrocodone/Acetaminophen (Hydrocodone-Acetamin 10-325 mg) 10 Mg-325 Mg Tablet, 1 EACH PO Q8H PRN for PAIN-MODERATE (5-7) Prescribed by: CIERRA DICKENS on 02/22/22 1051 Last Action: Continued Levothyroxine Sodium (Euthyrox) 100 Mcg Tablet, 100 MCG PO DAILY, (Reported) Entered as Reported by: SOILA MONROY on 02/23/22 1452 Last Action: Continued Losartan Potassium (Losartan Potassium) 50 Mg Tablet, 50 MG PO DAILY, (Reported) Entered as Reported by: JOSE MANUEL HARRELL on 02/10/22 124 Last Action: Continued Metformin HCl (Metformin HCl) 500 Mg Tablet, 500 MG PO BID@07,17 Prescribed by: CIERRA DICKENS on 02/22/22 1050 Last Action: Continued Metoprolol Succinate (Metoprolol Succinate) 25 Mg Tab.er.24h, 25 MG PO DAILY, ( Reported) Entered as Reported by: JOSE MANUEL HARRELL on 02/10/22 124 Last Action: Continued Pantoprazole Sodium (Pantoprazole Sodium) 40 Mg Tablet.dr, 40 MG PO DAILY, (Reported) Entered as Reported by: JOSE MANUEL HARRELL on 02/10/22 1244 Last Action: Continued Potassium Chloride (K-Tab ER) 20 Meq Tablet.er, 20 MEQ PO TID, (Reported) Entered as Reported by: JOSE MANUEL HARRELL on 02/10/22 1244 Last Action: Held Discontinued Medications Apixaban (Eliquis) 5 Mg Tablet, 5 MG PO BID, (Reported) Entered as Reported by: JOSE MANUEL HARRELL on 02/10/22 1244 Cholecalciferol (Vitamin D3) (Vitamin D3) 25 Mcg (1000 Unit) Capsule, 25 MCG PO DAILY, (Reported) Discontinued Reason: No Longer Taking Entered as Reported by: JOSE MANUEL HARRELL on 02/10/22 1244 Clopidogrel Bisulfate (Plavix) 75 Mg Tablet, 75 MG PO 1200, (Reported) Entered as Reported by: JOSE MANUEL HARRELL on 02/10/22 124 Glimepiride (Glimepiride) 4 Mg Tablet, 4 MG PO BID, (Reported) Entered as Reported by: JOSE MANUEL HARRELL on 02/10/22 124 Levothyroxine Sodium (Levothyroxine Sodium) 100 Mcg Tablet, 100 MCG PO DAILY, (Reported) Discontinued Reason: No Longer Taking Entered as Reported by: JOSE MANUEL HARRELL on 02/10/22 1244 Metformin HCl (Metformin HCl) 500 Mg Tablet, 500 MG PO QID, (Reported) Entered as Reported by: JOSE MANUEL HARRELL on 02/10/22 1244 Simvastatin (Simvastatin) 20 Mg Tablet, 20 MG PO HS, (Reported) Discontinued Reason: No Longer Taking Entered as Reported by: JOSE MANUEL HARRELL on 02/17/22 1241 Physical Exam-Cardiology Physical Exam Vital Signs/I&O 03/01/22 03/01/22 07:35 09:00 Temp 36.2 Pulse 85 Resp 20 B/P (MAP) 144/62 (89) Pulse Ox 97 93 O2 Delivery Nasal Cannula Nasal Cannula O2 Flow Rate 1.50 1.50 02/28/22 23:59 Intake Total 1100 ml Balance 1100 ml Capillary Refill : Constitutional: AAO x 3, well-developed, well-nourished HEENT: PERRL, hearing is well preserved, oral hygience is good Neck: No carotid bruit; carotid pulses are 2 + bilaterally Respiratory: No accessory muscle use, No respiratory distress; chest expansion is symmetric, chest is bilaterally symmetric, lungs clear to auscultation Cardiovascular: regular rate-rhythm; No JVD; S1 and S2 Gastrointestinal: No tender; soft, round, audible bowel sounds Extremities: other (RLE without swelling; dressing to R AKA stump which is D/I, not removed) Neurologic/Psychiatric: grossly intact (moves all extremities) Skin: No rash on exposed areas, No ulcerations on exposed areas; other (abrasion to right leg) Data Review Labs Laboratory Tests 02/28/22 16:31: Glucometer 165H 02/28/22 20:22: Glucometer 125H 03/01/22 05:39: Glucometer 116H 03/01/22 06:40: White Blood Count 17.0H, Red Blood Count 3.01L, Hemoglobin 7.3L, Hematocrit 25L, Mean Corpuscular Volume 82, Mean Corpuscular Hemoglobin 24L, Mean Corpuscular Hemoglobin Concent 29L, Red Cell Distribution Width 18.3H, Platelet Count 256, Mean Platelet Volume 12.1, Immature Granulocyte % (Auto) 1, Neutrophils (%) (Auto) 89H, Lymphocytes (%) (Auto) 3L, Monocytes (%) (Auto) 5, Eosinophils (%) (Auto) 1, Basophils (%) (Auto) 0, Neutrophils # (Auto) 15.1H, Lymphocytes # (Auto) 0.6L, Monocytes # (Auto) 0.9, Eosinophils # (Auto) 0.2, Basophils # (Auto) 0.1, Immature Granulocyte # (Auto) 0.2H, Sodium Level 132L, Potassium Level 4.0, Chloride Level 102, Carbon Dioxide Level 22, Anion Gap 8, Blood Urea Nitrogen 26H, Creatinine 0.77, Estimat Glomerular Filtration Rate 96, BUN/Creatinine Ratio 34, Glucose Level 117H, Calcium Level 8.2L, Corrected Calcium 9.5, Total Bilirubin 0.5, Aspartate Amino Transf (AST/SGOT) 65H, Alanine Aminotransferase (ALT/SGPT) 51, Alkaline Phosphatase 87, Total Protein 5.5L, Albumin 2.4L 03/01/22 09:00: Vancomycin Level Trough 9.1L 03/01/22 10:45: Glucometer 180H Microbiology 02/27/22 Blood Culture - Preliminary, Resulted No growth Radiology NAME: MERCEDES COFFEY Annabella [facility] REC#: [id number] PT STATUS: ADM IN : 1950 PHYSICIAN: CIERRA DICKENS DO ADMIT DATE: 02/24/22/[facility] Signed Date of Exam:02/27/22 CHEST 1 VIEW, AP/PA ONLY INDICATION: Fever. TIME OF EXAM: 9:25 AM. COMPARISON: No prior studies are available for comparison. FINDINGS: The heart is enlarged. There are changes of median sternotomy and CABG. The right lung is clear. There appears to be some atelectasis in the left base. No effusion or pneumothorax is detected. IMPRESSION: Cardiomegaly and status post CABG with left basilar subsegmental atelectasis. 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 Perez on 02-23-22. Leukocytosis - management per medical services PVD - reports PTCA bilat by Dr. Álvarez at [facility] in 2020 - reports stent x 2 to the L leg 02-03-22 (prior to BKA) by Dr. Sánchez at [facility] - reports PTCA to R leg 02-05-[address] Sánchez CAD - H/O CABG x 5 vessel [place] [address] Parry Chronic systolic CHF - maintained on diuretics ICM - last echo at [place] reported LVEF 40% (per nursing staff, date unknown) - maintained on Losartan Carotid dz - H/O L CEA in 2010 at [facility] - H/O chronic occlusion of the R carotid per pt report PAF - maintained on Amiodarone and Toprol - Previously on OAC with Eliquis (currently not taking) - H/O cardioversions in the past, last one >2 yrs ago HTN HLD DM 2 Anemia - undetermined etiology - management by medical services Discussion and Recomendations Transient hypotension - possible d/t vol depletion vs sepsis, asymptomatic - reduce antihypertensive regimen and diuretics EKG today H/O PAF - continue Amiodarone - advise OAC for stroke prophylaxis - however d/t dropping H/H which is being managed by Dr. Dickens we will leave this us to her discretion CAD and carotid dz - continue ASA, low dose ICM - request recent echo from [place] - if not done in the last 6 months, request - reduce Losartan H/O systolic CHF - clinically compensated - reduce diuretics Leukocytosis - management per medical services (IV abx) Monitor lab closely Replace electrolytes as indicated Request records from [facility] We would like to thank Dr. Dickens for this consult Further recs will be based on his hospital course DANIEL BORRERO Feb 28, 2022 14:56
--- NOTE | 2022-02-28 15:36 | Physical Therapy Daily Note ---
PT Daily Note-Current Subjective Pt laying Supine in bed upon arrival. Pt given meds by Nurse to start tx. HOURLY CAREGIVER for [place] Manager checks on pt as well. Pt agrees to EX. Pain Numeric Pain Scale: 4 Location: Left Location Body Site: Hip Pain Description: Ache Mental Status Patient Orientation: Person, Place Transfers SCALE: Activities may be completed with or without assistive devices. 4-Tyynuavysu-ylzrvvd completes the activity by him/herself with no assistance from a helper. 5-Set-up or Clean-up Assistance-helper sets up or cleans up; patient completes activity. [place] assists only prior to or following the activity. 4-Supervision or Touching Assistance-helper provides verbal cues and/or touching/steadying and/or contact guard assistance as patient completes activity. Assistance may be provided throughout the activity or intermittently. 3-Partial/Moderate Assistance-helper does LESS THAN HALF the effort. [place] lifts, holds or supports trunk or limbs, but provides less than half the effort. 2-Substantial/Maximal Assistance-helper does MORE THAN HALF the effort. [place] lifts or holds trunk or limbs and provides more than half the effort. 3-Zydqkohto-vcrbxw does ALL the effort. Patient does none of the effort to complete the activity. Or, the assistance of 2 or more helpers is required for the patient to complete the activity. If activity was not attempted, code reason: 7-Patient Refused. 9-Not Applicable-not attempted and the patient did not perform the activity before the current illness, exacerbation or injury. 10-Not Attempted due to Environmental Limitations-(lack of equipment, weather restraints, etc.). 88-Not Attempted due to Medical Conditions or Safety Concerns. Weight Bearing Full Weight Bearing Exercises Supine Ex: Ankle pumps, Quad Set, Glut sets, Heel Slides, Short Arc Quads, Straight leg raise, Hip abd/add Supine Reps: 15 Seated Therapy Exercises: Ankle pumps, Long arc quads, Hip flexion Seated Reps: 15 Treatments SURGERY MANAGER issues & reviews written HEP for Supine & Seated EX w/both pt & sp. Pt repositioned to comfort, all needs met & call light in hand. Assessment Current Status: Good Progress Confusion during review of HEP at times. SURGERY MANAGER redirects as needed. PT Short Term Goals Short Term Goals Time Frame: Mar 03, 2022 Roll Left & Right: 4 Sit to lyin (Batsheva) Lying to sitting on side of be: 3 (Batsheva) Sit to stand: 3 (modA) Chair/ysy-mh-vsawk transfer: 3 (modA) PT Negotiations Director Goals Negotiations Director Goals PT Negotiations Director Goals Time Frame: Mar 17, 2022 Roll Left & Right (QC): 6 Sit to Lying (QC): 4 (SBA) Lying-Sitting on Side/Bed(QC): 4 (SBA) Sit to Stand (QC): 3 (Batsheva) Chair/Gjv-jl-Jrsqi Xfer(QC): 3 (Batsheva) Toilet Transfer (QC): 3 (Batsheva) Car Transfer (QC): 3 (Batsheva) Does the Patient Walk: No and Walking Goal NOT indicated Walk 10 feet (QC): 88 Walk 50ft with 2 Turns (QC): 88 Walk 150 ft (QC): 88 Walking 10ft on Uneven Surface: 88 1 Step (curb) (QC): 88 4 Steps (QC): 88 12 Steps (QC): 88 Picking up an Object (QC): 88 Wheel 50 feet with 2 turns (QC: 6 Wheel 150 feet: 6 PT Plan Problem List Problem List: Activity Tolerance, Functional Strength Treatment/Plan Treatment Plan: Continue Plan of Care Treatment Plan: Bed Mobility, Education, Functional Activity Lalit, Functional Strength, Group Therapy, Safety, Therapeutic Exercise, Transfers Treatment Duration: Mar 17, 2022 Frequency: At least 5 of 7 days/Wk (IRF) Estimated Hrs Per Day: 1.5 hours per day Patient and/or Family Agrees t: Yes Safety Risks/Education Patient Education: Issued Written HEP Teaching Recipient: Patient, Significant Other Teaching Methods: Demonstration, Discussion Response to Teaching: Verbalize Understanding Time/GCodes Time In: 1430 Time Out: 1400 Total Billed Treatment Time: 30 Total Billed Treatment 1, EX x2 (30m) JALEESA MONIQUE SURGERY MANAGER Feb 28, 2022 15:36
--- NOTE | 2022-02-28 18:30 | Consultation-Cardiology ---
HPI-Cardiology Cardiology Consultation: Date of Consultation 02/28/22 Time Seen by a Provider: 18:00 Date of Admission Attending Physician Saw Lai MD Admitting Physician Admitting Physician: Cierra Chappell DO Attending Physician: Cierra Chappell DO Consulting Physician SHI GARZA MD, MA, FACP, FACC, [facility], CCDS Physician requesting consult: Dr Chappell HPI: Chief Complaint: Hypotension Mr. Coffey is a 71 yr old male who has been seen in [facility]. We have been consulted by Dr. Chappell d/t episode of hypotension, asymptomatic, this morning. In late January 2022 he underwent L BKA at [facility]. He was admitted to IRU here following that surgery. He then developed a gangrenous wound to the L BKA stump. He subsequently underwent R AKA by Dr. Perez on 02-23-22. His primary frog farmer is Dr. Sánchez at [facility]. He denies any c/o CP, SOB or palpitations. His spouse is at the bedside. Review of Systems-Cardiology Review of Systems Constitutional: No chills, No fever, No malaise Eyes: No vision change Ears/Nose/Throat: No epistaxis, No recent hearing loss Respiratory: As described under HPI Cardiovascular: As described under HPI Gastrointestinal: No diarrhea, No nausea, No vomiting Genitourinary: No dysuria Musculoskeletal: other (left shoulder pain) Skin: other (abrasion to right leg; dressing to left leg stump) Psychiatric/Neurological: No anxiety, No depression, No seizure, No focal weakness, No syncope Hematologic: No bleeding abnormalities All Other Systems Reviewed Negative Unless Noted: Yes OSJ-Qjssgc-Zwrhto Hx Patient Social History Marrital Status: Employed/Student: retired Smoking Status: Former Smoker 2nd Hand Smoke Exposure: No Alcohol Use?: No Pt feels they are or have been: No Immunizations Up To Date Tetanus Booster (TDap): Unknown Past Medical History PMH As described under Assessment. Family Medical History Family Medical History: He does not report any family h/o CAD. Allergies and Home Medications Allergies Coded Allergies: gabapentin (Verified Allergy, Unknown, 02/22/22) nightmares lisinopril (Verified Allergy, Unknown, 02/10/22) niacin (Verified Allergy, Unknown, 02/10/22) oxycodone (Verified Allergy, Unknown, 02/10/22) rivaroxaban (Verified Allergy, Unknown, 02/10/22) Uncoded Allergies: CI Pigment Blue 63 (Adverse Reaction, Severe, Itching, 02/10/22) Patient Home Medication List Home Medication List Reviewed: Yes Amiodarone HCl (Amiodarone HCl) 200 Mg Tablet, 200 MG PO DAILY, (Reported) Entered as Reported by: JOSE MANUEL HARRELL on 02/10/22 124 Last Action: Continued Docusate Sodium (Docusate Sodium) 100 Mg Capsule, 100 MG PO BID PRN for CONSTIPATION-1ST LINE, (Reported) Entered as Reported by: JOSE MANUEL HARRELL on 02/17/22 1242 Last Action: Continued Furosemide (Furosemide) 80 Mg Tablet, 80 MG PO DAILY, (Reported) Entered as Reported by: JOSE MANUEL AHRRELL on 02/10/22 124 Last Action: Converted Glimepiride (Amaryl) 1 Mg Tab, 0.5 MG PO DAILY@0630 Prescribed by: CIERRA CHAPPELL on 02/22/22 1050 Last Action: Continued Hydrocodone/Acetaminophen (Hydrocodone-Acetamin 10-325 mg) 10 Mg-325 Mg Tablet, 1 EACH PO Q8H PRN for PAIN-MODERATE (5-7) Prescribed by: CIERRA CHAPPELL on 02/22/22 1051 Last Action: Continued Levothyroxine Sodium (Euthyrox) 100 Mcg Tablet, 100 MCG PO DAILY, (Reported) Entered as Reported by: SOILA MONROY on 02/23/22 1452 Last Action: Continued Losartan Potassium (Losartan Potassium) 50 Mg Tablet, 50 MG PO DAILY, (Reported) Entered as Reported by: JOSE MANUEL HARRELL on 02/10/22 124 Last Action: Continued Metformin HCl (Metformin HCl) 500 Mg Tablet, 500 MG PO BID@07,17 Prescribed by: CIERRA CHAPPELL on 02/22/22 1050 Last Action: Continued Metoprolol Succinate (Metoprolol Succinate) 25 Mg Tab.er.24h, 25 MG PO DAILY, (Reported) Entered as Reported by: JOSE MANUEL HARRELL on 02/10/22 124 Last Action: Continued Pantoprazole Sodium (Pantoprazole Sodium) 40 Mg Tablet.dr, 40 MG PO DAILY, (Reported) Entered as Reported by: JOSE MANUEL HARRELL on 02/10/22 1244 Last Action: Continued Potassium Chloride (K-Tab ER) 20 Meq Tablet.er, 20 MEQ PO TID, (Reported) Entered as Reported by: JOSE MANUEL HARRELL on 02/10/22 124 Last Action: Held Discontinued Medications Apixaban (Eliquis) 5 Mg Tablet, 5 MG PO BID, (Reported) Entered as Reported by: JOSE MANUEL HARRELL on 02/10/22 124 Cholecalciferol (Vitamin D3) (Vitamin D3) 25 Mcg (1000 Unit) Capsule, 25 MCG PO DAILY, (Reported) Discontinued Reason: No Longer Taking Entered as Reported by: JOSE MANUEL HARRELL on 02/10/22 124 Clopidogrel Bisulfate (Plavix) 75 Mg Tablet, 75 MG PO 1200, (Reported) Entered as Reported by: JOSE MANUEL HARRELL on 02/10/22 124 Glimepiride (Glimepiride) 4 Mg Tablet, 4 MG PO BID, (Reported) Entered as Reported by: JOSE MANUEL HARRELL on 02/10/22 124 Levothyroxine Sodium (Levothyroxine Sodium) 100 Mcg Tablet, 100 MCG PO DAILY, (Reported) Discontinued Reason: No Longer Taking Entered as Reported by: JOSE MANUEL HARRELL on 02/10/22 124 Metformin HCl (Metformin HCl) 500 Mg Tablet, 500 MG PO QID, (Reported) Entered as Reported by: JOSE MANUEL HARRELL on 02/10/22 124 Simvastatin (Simvastatin) 20 Mg Tablet, 20 MG PO HS, (Reported) Discontinued Reason: No Longer Taking Entered as Reported by: JOSE MANUEL HARRELL on 02/17/22 124 Physical Exam-Cardiology Physical Exam Vital Signs/I&O 02/28/22 02/28/22 02/28/22 08:00 09:00 09:19 Temp 36.5 Pulse 75 Resp 16 B/P (MAP) 94/58 (70) Pulse Ox 93 93 O2 Delivery Nasal Cannula Nasal Cannula Nasal Cannula O2 Flow Rate 1.50 1.50 1.50 02/28/22 00:00 Intake Total 715 ml Balance 715 ml Capillary Refill : Constitutional: AAO x 3, well-developed, well-nourished HEENT: PERRL, hearing is well preserved, oral hygience is good Neck: No carotid bruit; carotid pulses are 2 + bilaterally Respiratory: No accessory muscle use, No respiratory distress; chest expansion is symmetric, chest is bilaterally symmetric, lungs clear to auscultation Cardiovascular: regular rate-rhythm; No JVD; S1 and S2 Gastrointestinal: No tender; soft, round, audible bowel sounds Extremities: other (RLE without swelling; dressing to R AKA stump which is D/I, not removed) Neurologic/Psychiatric: grossly intact (moves all extremities) Skin: No rash on exposed areas, No ulcerations on exposed areas; other (abrasion to right leg) Data Review Labs Laboratory Tests 02/27/22 21:08: Glucometer 108 02/28/22 05:55: Glucometer 116H 02/28/22 06:55: White Blood Count 15.6H, Red Blood Count 3.01L, Hemoglobin 7.4L, Hematocrit 25L, Mean Corpuscular Volume 82, Mean Corpuscular Hemoglobin 25, Mean Corpuscular Hemoglobin Concent 30L, Red Cell Distribution Width 18.4H, Platelet Count 227, Mean Platelet Volume 11.8, Immature Granulocyte % (Auto) 1, Neutrophils (%) (Auto) 88H, Lymphocytes (%) (Auto) 4L, Monocytes (%) (Auto) 6, Eosinophils (%) (Auto) 1, Basophils (%) (Auto) 0, Neutrophils # (Auto) 13.7H, Lymphocytes # (Aut o) 0.6L, Monocytes # (Auto) 0.9, Eosinophils # (Auto) 0.1, Basophils # (Auto) 0.0, Immature Granulocyte # (Auto) 0.2H, Sodium Level 133L, Potassium Level 4.3, Chloride Level 98, Carbon Dioxide Level 22, Anion Gap 13, Blood Urea Nitrogen 38H, Creatinine 1.02, Estimat Glomerular Filtration Rate 79, BUN/Creatinine Ratio 37, Glucose Level 115H, Calcium Level 8.2L, Corrected Calcium 9.6, Total Bilirubin 0.5, Aspartate Amino Transf (AST/SGOT) 90H, Alanine Aminotransferase (ALT/SGPT) 56H, Alkaline Phosphatase 70, Total Protein 5.1L, Albumin 2.3L, Procalcitonin 0.78H 02/28/22 11:04: Glucometer 142H 02/28/22 16:31: Glucometer 165H Microbiology 02/27/22 Blood Culture - Preliminary, Resulted No growth A/P-Cardiology Assessment/Admission Diagnosis Transient hypotension - asymptomatic S/P L BKA in 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 Perez on 02-23-22. Leukocytosis - management per medical services PVD - reports PTCA bilat by Dr. Álvarez at [facility] in 2020 - reports stent x 2 to the L leg 02-03-22 (prior to BKA) by Dr. Sánchez at [facility] - reports PTCA to R leg 02-05-[address] Sánchez CAD - H/O CABG x 5 [place] [address] Parry Chronic systolic CHF - maintained on diuretics ICM - last echo at [facility] reported LVEF 40% (per nursing staff, date unknown) - maintained on Losartan Carotid dz - H/O L CEA in 2010 at [facility] - H/O chronic occlusion of the R carotid per pt report PAF - maintained on Amiodarone and Toprol - Previously on OAC with Eliquis (currently not taking) - H/O cardioversions in the past, last one >2 yrs ago HTN HLD DM 2 Anemia - undetermined etiology - management by medical services Discussion and Recomendations Transient hypotension - possible d/t vol depletion vs sepsis, asymptomatic - reduce antihypertensive regimen and diuretics EKG today H/O PAF - continue Amiodarone - advise OAC for stroke prophylaxis - however d/t dropping H/H which is being managed by Dr. Chappell we will leave this to her discretion CAD and carotid dz - continue ASA, low dose ICM - request recent echo from [facility] - if not done in the last 6 months, request - reduce Losartan H/O systolic CHF - clinically compensated - reduce diuretics Leukocytosis - management per medical services (IV abx) Monitor lab closely Replace electrolytes as indicated Request records from [facility] We would like to thank Dr. Chappell for this consult Further recs will be based on his hospital course SHI GARZA MD FACP FAC CCDS Feb 28, 2022 18:30
[2022-02-28 20:00] VITALS: BP 109/48
[2022-02-28] MEDS: APIXABAN 5 MG (ELIQUIS) TABLET PO SCH (20:22)
[2022-03-01] MEDS: PIPERACILLIN SODIUM/TAZOBACTAM 4.5 GM in NS (IVPB) 100 ML IV SCH ×3 (03:14→18:40)
[2022-03-01] MEDS: inSUlin ASPART (NovoLOG) 1 UNIT/0.01 ML (CHARGE PER UNIT) SC SCH ×4 (05:42→20:37)
[2022-03-01] MEDS: LEVOTHYROXINE 100 MCG (LEVOTHROID) TAB PO SCH (06:30)
[2022-03-01 07:09] LABS: BASOPHILS # (AUTO) 0.1 10^3/uL (0.0-0.1); BASOPHILS % (AUTO) 0 % (0-10); EOSINOPHILS # (AUTO) 0.2 10^3/uL (0.0-0.3); EOSINOPHILS % (AUTO) 1 % (0-10); HEMATOCRIT 25 % (40-54); HEMOGLOBIN 7.3 g/dL (13.3-17.7); LYMPHOCYTES # (AUTO) 0.6 10^3/uL (1.0-4.0); LYMPHOCYTES % (AUTO) 3 % (12-44); MEAN CORPUSCULAR HEMOGLOBIN 24 pg (25-34); MEAN CORPUSCULAR HGB CONC 29 g/dL (32-36); MEAN CORPUSCULAR VOLUME 82 fL (80-99); MEAN PLATELET VOLUME 12.1 fL (9.0-12.2); MONOCYTES # (AUTO) 0.9 10^3/uL (0.0-1.0); MONOCYTES % (AUTO) 5 % (0-12); NEUTROPHILS # (AUTO) 15.1 10^3/uL (1.8-7.8); NEUTROPHILS % (AUTO) 89 % (42-75); PLATELET COUNT 256 10^3/uL (130-400)
[2022-03-01 07:14] LABS: ALBUMIN 2.4 GM/DL (3.2-4.5)
[2022-03-01 07:15] LABS: CALCIUM 8.2 MG/DL (8.5-10.1)
[2022-03-01 07:16] LABS: TOTAL PROTEIN 5.5 GM/DL (6.4-8.2)
[2022-03-01 07:18] LABS: BILIRUBIN,TOTAL 0.5 MG/DL (0.1-1.0)
[2022-03-01 07:20] LABS: CREATININE SERUM 0.77 MG/DL (0.60-1.30)
[2022-03-01 07:35] VITALS: BP 144/62
[2022-03-01] MEDS: AMIODARONE 200 MG (CORDARONE) TAB PO SCH (08:17)
[2022-03-01] MEDS: KCL 10 MEQ TAB (MICRO K) PO SCH ×2 (08:17→20:33)
[2022-03-01] MEDS: SENNA W/DOCUSATE (SENOKOT S) TABLET PO SCH ×2 (08:17→20:32)
[2022-03-01] MEDS: APIXABAN 5 MG (ELIQUIS) TABLET PO SCH ×2 (08:17→20:33)
[2022-03-01] MEDS: PANTOPRAZOLE 40 MG (PROTONIX) TAB PO SCH (08:17)
[2022-03-01] MEDS: FUROSEMIDE 40 MG (LASIX) TAB PO SCH (08:17)
[2022-03-01] MEDS: LOSARTAN 25 MG (COZAAR) TAB PO SCH (08:18)
[2022-03-01] MEDS: DOCUSATE SODIUM 100 MG (COLACE) CAP PO SCH ×2 (08:18→20:33)
[2022-03-01] MEDS: LACTOBACILLUS ACIDOPHILUS (PROBIOTIC) CAPSULE PO SCH ×3 (08:18→18:04)
[2022-03-01] MEDS: polyethylene glycoL POWDER 17 GM (MIRALAX) PACK PO SCH ×2 (08:21→19:19)
--- NOTE | 2022-03-01 08:26 | PM&R Progress Note ---
Subjective HPI/CC On Admission Date Seen by Provider: Mar 01, 2022 Time Seen by Provider: 08:30 Subjective/Events-last exam 03/01/2022: Pt had some incontinence today Dressing was saturated Decrease BP medication for Dr. Kerns A little bit confused Will give one unit of blood today Maintain on broad spectrum antibiotics White count still elevated at 17 02/28/2022: Pt is doing well Mild hypotension not due to sepsis so will give 500 ccs bolus IV fluids 60 an hour Decrease procalcitonin Zosyn and Vancomycin maintained 02/27/2022: Pt is doing a lot better Sleeps all the time Fever and elevated white count with procalcitonin elevation prompting blood and urine cultures, chest x-ray, and empiric IV antibiotics PICC will be placed 02/26/2022: Patient settling in well Sugars lower so will hold Metformin No pain except hip and left shoulder Glucometer assessed at bedside No issues otherwise Review of Systems General: Fatigue, Malaise Musculoskeletal: arm pain, leg pain Objective Exam Vital Signs Vital Signs Date Time Temp Pulse Resp B/P (MAP) Pulse Ox O2 Delivery O2 Flow Rate FiO2 03/01/22 20:20 Nasal Cannula 1.50 03/01/22 20:00 37.5 78 18 125/58 (80) 96 Capillary Refill : General Appearance: No Apparent Distress, WD/WN HEENT: PERRL/EOMI, Normal ENT Inspection, Pharynx Normal Neck: Normal Inspection, Supple Respiratory: No Accessory Muscle Use, No Respiratory Distress Cardiovascular: Regular Rate, Rhythm, No Edema, No Gallop, No JVD, No Murmur, N ormal Peripheral Pulses Gastrointestinal: Normal Bowel Sounds, No Organomegaly, No Pulsatile Mass, Non Tender, Soft Back: Normal Inspection, No CVA Tenderness, No Vertebral Tenderness Extremity: Other (left AKA with dressing in place C/D/I) Neurologic/Psychiatric: Alert, Oriented x3 Skin: Normal Color, Warm/Dry Lymphatic: No Adenopathy Results/Procedures Lab Laboratory Tests 03/01/22 06:40 Patient resulted labs reviewed. FIM Transfers Therapy Code Descriptions/Definitions Functional [place] Measure: 0=Not Assessed/NA 4=Minimal Assistance 1=Total Assistance 5=Supervision or Setup 2=Maximal Assistance 6=Modified [place] 3=Moderate Assistance 7=Complete IndependenceSCALE: Activities may be completed with or without assistive devices. 6-Tftmvkmqym-uxxrzto completes the activity by him/herself with no assistance from a helper. 5-Set-up or Clean-up Assistance-helper sets up or cleans up; patient completes activity. [place] assists only prior to or following the activity. 4-Supervision or Touching Assistance-helper provides verbal cues and/or touching/steadying and/or contact guard assistance as patient completes activity. Assistance may be provided throughout the activity or intermittently. 3-Partial/Moderate Assistance-helper does LESS THAN HALF the effort. [place] lifts, holds or supports trunk or limbs, but provides less than half the effort. 2-Substantial/Maximal Assistance-helper does MORE THAN HALF the effort. [place] lifts or holds trunk or limbs and provides more than half the effort. 8-Elgycdeuh-kbxxcw does ALL the effort. Patient does none of the effort to complete the activity. Or, the assistance of 2 or more helpers is required for the patient to complete the activity. If activity was not attempted, code reason: 7-Patient Refused. 9-Not Applicable-not attempted and the patient did not perform the activity before the current illness, exacerbation or injury. 10-Not Attempted due to Environmental Limitations-(lack of equipment, weather restraints, etc.). 88-Not Attempted due to Medical Conditions or Safety Concerns. Roll Left to Right (QC): 5 Sit to Lying (QC): 3 Sit to Stand (QC): 1 Chair/Ywz-ou-Bowur Xfer(QC): 2 Car Transfer (QC): 2 Gait Training Does the Patient Walk?: No and Walking Goal NOT indicated Walk 10 feet (QC): 88 Walk 50 ft with 2 Turns(QC): 88 Walk 150 ft (QC): 88 Walking 10ft/uneven surface-QC: 88 Wheelchair Training Does the Pt Use a Wheelchair?: Yes Distance: 100'x2 Wheel 50 ft with 2 turns (QC): 4 Wheel 150 ft (QC): 88 Type of Wheelchair: Manual Stair Training 1 Step (curb) (QC): 88 4 Steps (QC): 88 12 Steps (QC): 88 Balance Picking up an Object (QC): 88 ADL-Treatment Eating (QC): 5 (Assistance opening containers) Oral Hygiene (QC): 5 (set up at sink) Shower/Bathe Self (QC): 1 (Assist x2 with sponge bath to help with bed mobility and wiping) Upper Body Dressing (QC): 3 (Mod A. Assist required overhead and slight assistance down trunk.) Lower Body Dressing (QC): 1 (Assist x2) On/Off Footwear (QC): 1 Toileting Hygiene (QC): 1 (Assist x2 for bowel movement. 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 Fall 02/21/22 resulting in left shoulder injury causing further debility and limiting ADL/independence Severe PVD PAF OAC HTN HLP DM Hypothyroidism Previous hypoglycemia required holding metformin and glimepiride but now on lower dose Constipation resolved Poor venous access requiring PICC 02/27/22 Anemia post op requiring transfusion 03/01/22 Plan: PT OT w/c mobility Home meds 02/26/2022: Pain control Monitor sugar Hold Metformin 02/27/22: Empiric broad spectrum abx Hold Metformin and OAC PICC line 02/28/2022: IV abx Monitor closely 03/01/2022: Transfuse Broad spectrum abx (1) S/P AKA (above knee amputation) (2) Gangrene XIOMARA DICKENS DO Mar 01, 2022 08:26
[2022-03-01] MEDS ORDERED: TROUGH ORDER-PHARMACY XX ONE (09:00)
--- NOTE | 2022-03-01 09:01 | Physical Therapy Daily Note ---
PT Daily Note-Current Subjective Pt laying Supine in bed with Sp present upon arrival. Pt agrees to PT. Pain Numeric Pain Scale: 4 Location: Left Location Body Site: Hip Pain Description: Ache Mental Status Patient Orientation: Person, Place Attachments: Oxygen, IV Transfers SCALE: Activities may be completed with or without assistive devices. 3-Ruwpntptkz-mkqlfei completes the activity by him/herself with no assistance from a helper. 5-Set-up or Clean-up Assistance-helper sets up or cleans up; patient completes activity. [place] assists only prior to or following the activity. 4-Supervision or Touching Assistance-helper provides verbal cues and/or touching/steadying and/or contact guard assistance as patient completes activity. Assistance may be provided throughout the activity or intermittently. 3-Partial/Moderate Assistance-helper does LESS THAN HALF the effort. [place] lifts, holds or supports trunk or limbs, but provides less than half the effort. 2-Substantial/Maximal Assistance-helper does MORE THAN HALF the effort. [place] lifts or holds trunk or limbs and provides more than half the effort. 7-Rxeaiqbni-ijopeo does ALL the effort. Patient does none of the effort to complete the activity. Or, the assistance of 2 or more helpers is required for the patient to complete the activity. If activity was not attempted, code reason: 7-Patient Refused. 9-Not Applicable-not attempted and the patient did not perform the activity before the current illness, exacerbation or injury. 10-Not Attempted due to Environmental Limitations-(lack of equipment, weather restraints, etc.). 88-Not Attempted due to Medical Conditions or Safety Concerns. Lying to Sitting/Side of Bed(Q: 3 Sit to Stand (QC): 3 Weight Bearing Full Weight Bearing Exercises Seated Therapy Exercises: Sit to stand Seated Reps: 5 Treatments OT/PT co-treat ([id number]): PT/OT co-treat required due to the skill required from therapist that a rehabilitation services counselor does not possess. PT focusing on LB strengthening, LE placement during transfer and standing balance. OT focusing on ADLs, UB strengthening, and UE placement during transfers. Pt supine in bed at beginning of tx and transferred to EOB with Max A for cueing for UE placement and assistance to help pull self from supine position. Pt then completed 5x stand from EOB with 2x assist for cueing and balance while standing. For the first 3 stands, pt started at higher bed setting to decrease LE strength required to push self up from bed and with each stand, the bed decreased in height. Pt attempted to perform stand pivot transfer from EOB to recliner, but was unable to pivot RLE. Pt requested to stop trying to transfer to recliner for the day, but is willing to try again tomorrow. Assessment Current Status: Good Progress Pt demonstrates increased strength and decreased fear of falling/trust in therapists. PT Short Term Goals Short Term Goals Time Frame: Mar 03, 2022 Roll Left & Right: 4 Sit to lyin (Batsheva) Lying to sitting on side of be: 3 (Batsheva) Sit to stand: 3 (modA) Chair/zxk-ta-odzsl transfer: 3 (modA) PT Penitentiary Goals Penitentiary Goals PT Maintenance Technician 3Rd Shift Goals Time Frame: Mar 17, 2022 Roll Left & Right (QC): 6 Sit to Lying (QC): 4 (SBA) Lying-Sitting on Side/Bed(QC): 4 (SBA) Sit to Stand (QC): 3 (Batsheva) Chair/Zrh-zv-Jwvef Xfer(QC): 3 (Batsheva) Toilet Transfer (QC): 3 (Batsheva) Car Transfer (QC): 3 (Batsheva) Does the Patient Walk: No and Walking Goal NOT indicated Walk 10 feet (QC): 88 Walk 50ft with 2 Turns (QC): 88 Walk 150 ft (QC): 88 Walking 10ft on Uneven Surface: 88 1 Step (curb) (QC): 88 4 Steps (QC): 88 12 Steps (QC): 88 Picking up an Object (QC): 88 Wheel 50 feet with 2 turns (QC: 6 Wheel 150 feet: 6 PT Plan Problem List Problem List: Activity Tolerance, Functional Strength, Transfer Treatment/Plan Treatment Plan: Continue Plan of Care Treatment Plan: Bed Mobility, Education, Functional Activity Lalit, Functional Strength, Group Therapy, Safety, Therapeutic Exercise, Transfers Treatment Duration: Mar 17, 2022 Frequency: At least 5 of 7 days/Wk (IRF) Estimated Hrs Per Day: 1.5 hours per day Patient and/or Family Agrees t: Yes Safety Risks/Education Patient Education: Transfer Techniques, Correct Positioning, Safety Issues Teaching Recipient: Patient, Significant Other Teaching Methods: Discussion Response to Teaching: Verbalize Understanding Time/GCodes Time In: 800 Time Out: 900 Total Billed Treatment Time: 60 Total Billed Treatment 1, FA x4 (60m) Co-treat w/OT for 60m JALEESA MONIQUE LAND SURVEYOR MANAGER Mar 01, 2022 09:01
--- NOTE | 2022-03-01 09:30 | Occupational Ther Daily Note ---
OT Current Status-Daily Note Subjective Pt supine in bed with family member in room. Pt agreeable to OT/PT cotreat. Pain Numeric Pain Scale: 5-Moderate Pain Location: Left Location Body Site: Hip Mental Status/Objective Patient Orientation: Normal For Age ADL-Treatment Therapy Code Descriptions/Definitions Functional [place] Measure: 0=Not Assessed/NA 4=Minimal Assistance 1=Total Assistance 5=Supervision or Setup 2=Maximal Assistance 6=Modified [place] 3=Moderate Assistance 7=Complete IndependenceSCALE: Activities may be completed with or without assistive devices. 2-Fhfzbqwrlb-bcuzzqb completes the activity by him/herself with no assistance from a helper. 5-Set-up or Clean-up Assistance-helper sets up or cleans up; patient completes activity. [place] assists only prior to or following the activity. 4-Supervision or Touching Assistance-helper provides verbal cues and/or touching/steadying and/or contact guard assistance as patient completes activity. Assistance may be provided throughout the activity or intermittently. 3-Partial/Moderate Assistance-helper does LESS THAN HALF the effort. [place] lifts, holds or supports trunk or limbs, but provides less than half the effort. 2-Substantial/Maximal Assistance-helper does MORE THAN HALF the effort. [place] lifts or holds trunk or limbs and provides more than half the effort. 0-Zjoznkjul-xhjxqw does ALL the effort. Patient does none of the effort to complete the activity. Or, the assistance of 2 or more helpers is required for the patient to complete the activity. If activity was not attempted, code reason: 7-Patient Refused. 9-Not Applicable-not attempted and the patient did not perform the activity before the current illness, exacerbation or injury. 10-Not Attempted due to Environmental Limitations-(lack of equipment, weather restraints, etc.). 88-Not Attempted due to Medical Conditions or Safety Concerns. Other Treatment OT/PT cotreat ([id number]): PT/OT cotreat required due to the skill required from therapist that a animal rehabilitator does not possess. PT focusing on LB strengthening, LE placement during transfer and standing balance. OT focusing on ADLs, UB strengthening, and UE placement during transfers. Pt supine in bed at beginning of tx and transferred to EOB with MaxA for cueing for UE placement and assistance to help pull self from supine position. Pt then completed 5x stand from EOB with 2x assist for cueing and balance while standing. For the firt 3 stands, pt started at higher bed setting to decrease LE strength required to push self up from bed and with each stand, the bed decreased in height. Pt attempted to perform stand pivot transfer from EOB to recliner, but was unable to pivot RLE. Pt requested to stop trying to transfer to recliner for the day, but is willing to try again tomorrow. OT tx ([id number]): Pt completed oral hygiene at bed side with set up assist and groomed hair. Pt also completed face washing at EOB. Pt then completed BUE strengthening exercises with yellow theraband on RUE and no weight on LUE, to increase BUE strength and activity tolerance. Pt then transferred from EOB to supine with SBA for cueing. Pt supine in bed with call light in reach and all needs met. Education OT Patient Education: Transfer techniques Teaching Recipient: Patient, Family Teaching Methods: Demonstration, Discussion Response to Teaching: Verbalize Understanding OT Short Term Goals Short Term Goals Time Frame: Mar 08, 2022 Toileting hygiene: 2 Shower/bathe self: 3 Lower body dressin Putting on/taking off footwear: 3 OT Retirement Goals Director Zone Goals Time Frame: Mar 24, 2022 Eating (QC): 6 Oral Hygiene (QC): 6 Toileting Hygiene (QC): 3 (bowel movements on toilet) Shower/Bathe Self (QC): 4 Upper Body Dressing (QC): 5 Lower Body Dressing (QC): 3 On/Off Footwear (QC): 4 Additional Goals: 1-Demonstrate ADL Tasks, 2-Verbalize Understanding, 3- ImproveStrength/Lalit 1=Demonstrate adherence to instructed precautions during ADL tasks. 2=Patient will verbalize/demonstrate understanding of assistive devices/modifications for ADL. 3=Patient will improve strength/tolerance for activity to enable patient to perform ADL's. OT Education/Plan Problem List/Assessment Assessment: Decreased Activ Tolerance, Decreased UE Strength, Impaired Bed Mobility, Impaired Coordination, Impaired Funct Balance, Impaired I ADL's, Impaired Self-Care Skills Discharge Recommendations Plan/Recommendations: Continue POC Treatment Plan/Plan of Care Patient would benefit from OT for education, treatment and training to promote independence in ADL's, mobility, safety and/or upper extremity function for ADL's. Plan of Care: ADL Retraining, Caregiver Training, Functional Mobility, Group Exercise/Act as Ind, UE Funct Exercise/Act, W/C Management Training Treatment Duration: Mar 24, 2022 Frequency: At least 5 of 7 days/Wk (IRF) Estimated Hrs Per Day: 1.5 hours per day Rehab Potential: Guarded Time/GCodes Start Time: 08:00 Stop Time: 09:30 Total Time Billed (hr/min): 90 Billed Treatment Time 1 visit, FA 4 (55min), EX 2 (35min) Elsa Rdz Mar 01, 2022 09:30
[2022-03-01] MEDS: VANCOMYCIN 1 GM/NS 250 ML IVPB IV SCH ×2 (10:15)
[2022-03-01] MEDS ORDERED: VANCOMYCIN 500 MG/NS 100 ML IV NR ×2 (11:00)
--- NOTE | 2022-03-01 12:45 | Progress Note - Cardiology ---
Cardiology SOAP Progress Note Subjective: In bed Spouse at the bedside States he feels good this morning No c/o CP or SOB Objective: I&O/Vital Signs 03/02/22 03/02/22 03/02/22 07:38 08:10 09:00 Temp 36.5 Pulse 77 Resp 18 B/P (MAP) 132/76 (94) Pulse Ox 91 O2 Delivery Nasal Cannula Nasal Cannula Nasal Cannula O2 Flow Rate 1.50 1.50 1.50 03/02/22 00:00 Intake Total 2550 ml Balance 2550 ml Constitutional: AAO x 3, well-developed, well-nourished Respiratory: No accessory muscle use, No respiratory distress; chest expansion is symmetric, chest is bilaterally symmetric, lungs clear to auscultation Cardiovascular: regular rate-rhythm; No JVD; S1 and S2 Gastrointestional: No tender; soft, round, audible bowel sounds Extremities: other (RLE without swelling; dressing to R AKA stump which is D/I, not removed) Neurologic/Psychiatric: grossly intact (moves all extremities) Skin: No rash on exposed areas, No ulcerations on exposed areas; other (abrasion to right leg) Results/Procedures: Labs Laboratory Tests 03/01/22 16:03: Glucometer 167H 03/01/22 17:37: Glucometer 140H 03/01/22 20:33: Glucometer 138H 03/02/22 05:24: Glucometer 120H 03/02/22 06:50: White Blood Count 16.2H, Red Blood Count 3.47L, Hemoglobin 8.5L, Hematocrit 28L, Mean Corpuscular Volume 82, Mean Corpuscular Hemoglobin 25, Mean Corpuscular Hemoglobin Concent 30L, Red Cell Distribution Width 18.6H, Platelet Count 259, Mean Platelet Volume 11.2, Immature Granulocyte % (Auto) 2, Neutrophils (%) (Auto) 86H, Lymphocytes (%) (Auto) 5L, Monocytes (%) (Auto) 5, Eosinophils (%) (Auto) 2, Basophils (%) (Auto) 0, Neutrophils # (Auto) 14.0H, Lymphocytes # (Auto) 0.7L, Monocytes # (Auto) 0.8, Eosinophils # (Auto) 0.3, Basophils # (A uto) 0.1, Immature Granulocyte # (Auto) 0.3H, Neutrophils % (Manual) 90, Lymphocytes % (Manual) 3, Monocytes % (Manual) 4, Eosinophils % (Manual) 2, Band Neutrophils 1, Hypochromasia MODERATE, Anisocytosis MODERATE, Sodium Level 138, Potassium Level 3.7, Chloride Level 105, Carbon Dioxide Level 21, Anion Gap 12, Blood Urea Nitrogen 18, Creatinine 0.70, Estimat Glomerular Filtration Rate 99, BUN/Creatinine Ratio 26, Glucose Level 127H, Calcium Level 8.3L, Corrected Calcium 9.7, Total Bilirubin 0.5, Aspartate Amino Transf (AST/SGOT) 45H, Alanine Aminotransferase (ALT/SGPT) 49, Alkaline Phosphatase 94, Total Protein 5.6L, Albumin 2.3L 03/02/22 10:47: Glucometer 176H Microbiology 02/27/22 Blood Culture - Preliminary, Resulted No growth A/P: Assessment: Transient hypotension - asymptomatic S/P L BKA in late January 2022 at [facility] - subsequent wet gangrene necessitating L AKA by Dr. Perez on 02-23-22. Leukocytosis - management per medical services PVD - reports PTCA bilat by Dr. Álvarez at [facility] in 2020 - reports stent x 2 to the L leg 02-03-22 (prior to BKA) by Dr. Sánchez at [facility] - reports PTCA to R leg 02-05-[address] Sánchez CAD - H/O CABG x 5 vessel [place] [address] Parry Chronic systolic CHF - maintained on diuretics ICM - last echo at [facility] reported LVEF 40% (per nursing staff, date unknown) - maintained on Losartan Carotid dz - H/O L CEA in 2010 at [facility] - H/O chronic occlusion of the R carotid per pt report PAF - maintained on Amiodarone and Toprol - Previously on OAC with Eliquis (currently not taking) - H/O cardioversions in the past, last one >2 yrs ago HTN HLD DM 2 Anemia - undetermined etiology - management by medical services Plan: Transient hypotension - possible d/t vol depletion asymptomatic - reduce antihypertensive regimen and diuretics - BP improved H/O PAF - continue Amiodarone - OAC has been resumed CAD and carotid dz - continue ASA, low dose ICM - request recent echo from [facility] - if not done in the last 6 months, request - reduce Losartan H/O systolic CHF - clinically compensated - reduce diuretics Leukocytosis - management per medical services (IV abx) Monitor lab closely We have not received records from [facility] as of yet DANIEL BORRERO FILLING LAYER UP Mar 01, 2022 12:45
[2022-03-01] MEDS ORDERED: NS IV 500 ML 500 ML IV SCH (13:45)
[2022-03-01] MEDS: NS IV 1000 ML 1,000 ML IV SCH (14:54)
[2022-03-01 15:29] VITALS: BP 113/55
[2022-03-01 15:44] VITALS: BP 124/59
--- NOTE | 2022-03-01 15:50 | Physical Therapy Daily Note ---
PT Daily Note-Current Subjective Pt laying Supine in bed upon arrival with Sp present. Pt agrees to PT and asks to sit EOB. Pain Location: Left Location Body Site: Hip Pain Description: Ache Comment: Reports but doesn't rate Mental Status Patient Orientation: Person, Confused, Place Attachments: Oxygen, IV Transfers SCALE: Activities may be completed with or without assistive devices. 3-Qtnhtkrnpo-nzlsegg completes the activity by him/herself with no assistance from a helper. 5-Set-up or Clean-up Assistance-helper sets up or cleans up; patient completes activity. [place] assists only prior to or following the activity. 4-Supervision or Touching Assistance-helper provides verbal cues and/or touching/steadying and/or contact guard assistance as patient completes a ctivity. Assistance may be provided throughout the activity or intermittently. 3-Partial/Moderate Assistance-helper does LESS THAN HALF the effort. [place] lifts, holds or supports trunk or limbs, but provides less than half the effort. 2-Substantial/Maximal Assistance-helper does MORE THAN HALF the effort. [place] lifts or holds trunk or limbs and provides more than half the effort. 6-Jpnvkqayk-avspyi does ALL the effort. Patient does none of the effort to complete the activity. Or, the assistance of 2 or more helpers is required for the patient to complete the activity. If activity was not attempted, code reason: 7-Patient Refused. 9-Not Applicable-not attempted and the patient did not perform the activity before the current illness, exacerbation or injury. 10-Not Attempted due to Environmental Limitations-(lack of equipment, weather restraints, etc.). 88-Not Attempted due to Medical Conditions or Safety Concerns. Lying to Sitting/Side of Bed(Q: 3 Weight Bearing Full Weight Bearing Exercises Supine Ex: Rolling, Scooting Treatments Pt works on log rolling and proper technique to transfer from Supine to EOB as pt requests. After TC & VC given to pt & instruction given to Sp, pt resting EOB w/shoe on, all needs met & call light in hand. Nurse is aware that pt is EOB for safety. Assessment Current Status: Fair Progress Pt is more fatigued in afternoon session and needs occasional encouragement for safety. PT Short Term Goals Short Term Goals Time Frame: Mar 03, 2022 Roll Left & Right: 4 Sit to lyin (Batsheva) Lying to sitting on side of be: 3 (Batsheva) Sit to stand: 3 (modA) Chair/dxs-rq-szbso transfer: 3 (modA) PT Electrical Instrument Technician Goals Longterm Goals PT Longterm Goals Time Frame: Mar 17, 2022 Roll Left & Right (QC): 6 Sit to Lying (QC): 4 (SBA) Lying-Sitting on Side/Bed(QC): 4 (SBA) Sit to Stand (QC): 3 (Batsheva) Chair/Afo-kv-Kfkia Xfer(QC): 3 (Batsheva) Toilet Transfer (QC): 3 (Batsheva) Car Transfer (QC): 3 (Batsheva) Does the Patient Walk: No and Walking Goal NOT indicated Walk 10 feet (QC): 88 Walk 50ft with 2 Turns (QC): 88 Walk 150 ft (QC): 88 Walking 10ft on Uneven Surface: 88 1 Step (curb) (QC): 88 4 Steps (QC): 88 12 Steps (QC): 88 Picking up an Object (QC): 88 Wheel 50 feet with 2 turns (QC: 6 Wheel 150 feet: 6 PT Plan Problem List Problem List: Activity Tolerance, Functional Strength Treatment/Plan Treatment Plan: Continue Plan of Care Treatment Plan: Bed Mobility, Education, Functional Activity Lalit, Functional Strength, Group Therapy, Safety, Therapeutic Exercise, Transfers Treatment Duration: Mar 17, 2022 Frequency: At least 5 of 7 days/Wk (IRF) Estimated Hrs Per Day: 1.5 hours per day Patient and/or Family Agrees t: Yes Safety Risks/Education Patient Education: Transfer Techniques, Correct Positioning, Safety Issues Teaching Recipient: Patient, Significant Other Teaching Methods: Discussion Response to Teaching: Verbalize Understanding Time/GCodes Time In: 1400 Time Out: 1430 Total Billed Treatment Time: 30 Total Billed Treatment 1, EX (20m) & FA (10m) JALEESA MONIQUE ADMISSIONS MANAGER RN Mar 01, 2022 15:50
[2022-03-01 17:31] VITALS: BP 113/53
[2022-03-01 20:00] VITALS: BP 125/58
[2022-03-02] MEDS ORDERED: NS (IVPB) 100 ML ONE (03:14)
[2022-03-02] MEDS: PIPERACILLIN SODIUM/TAZOBACTAM 4.5 GM in NS (IVPB) 100 ML IV SCH ×3 (03:22→18:31)
[2022-03-02] MEDS: inSUlin ASPART (NovoLOG) 1 UNIT/0.01 ML (CHARGE PER UNIT) SC SCH ×4 (05:27→21:15)
[2022-03-02] MEDS: LEVOTHYROXINE 100 MCG (LEVOTHROID) TAB PO SCH (06:43)
[2022-03-02 07:08] LABS: BASOPHILS # (AUTO) 0.1 10^3/uL (0.0-0.1); BASOPHILS % (AUTO) 0 % (0-10); EOSINOPHILS # (AUTO) 0.3 10^3/uL (0.0-0.3); EOSINOPHILS % (AUTO) 2 % (0-10); HEMATOCRIT 28 % (40-54); HEMOGLOBIN 8.5 g/dL (13.3-17.7); LYMPHOCYTES # (AUTO) 0.7 10^3/uL (1.0-4.0); LYMPHOCYTES % (AUTO) 5 % (12-44); MEAN CORPUSCULAR HEMOGLOBIN 25 pg (25-34); MEAN CORPUSCULAR HGB CONC 30 g/dL (32-36); MEAN CORPUSCULAR VOLUME 82 fL (80-99); MEAN PLATELET VOLUME 11.2 fL (9.0-12.2); MONOCYTES # (AUTO) 0.8 10^3/uL (0.0-1.0); MONOCYTES % (AUTO) 5 % (0-12); NEUTROPHILS % (AUTO) 86 % (42-75); PLATELET COUNT 259 10^3/uL (130-400); WHITE BLOOD COUNT 16.2 10^3/uL (4.3-11.0)
[2022-03-02 07:29] LABS: ALBUMIN 2.3 GM/DL (3.2-4.5); BILIRUBIN,TOTAL 0.5 MG/DL (0.1-1.0); CALCIUM 8.3 MG/DL (8.5-10.1); CREATININE SERUM 0.7 MG/DL (0.60-1.30); POTASSIUM 3.7 MMOL/L (3.6-5.0); TOTAL PROTEIN 5.6 GM/DL (6.4-8.2)
[2022-03-02 07:38] VITALS: BP 132/76
[2022-03-02 07:42] LABS: BAND NEUTROPHILS 1 %; EOSINOPHILS % (MANUAL) 2 %; LYMPHOCYTES % (MANUAL) 3 %; MONOCYTES % (MANUAL) 4 %; NEUTROPHILS % (MANUAL) 90 %
[2022-03-02 07:43] LABS: ANISOCYTOSIS MODERATE; HYPOCHROMASIA MODERATE
[2022-03-02] MEDS: FUROSEMIDE 40 MG (LASIX) TAB PO SCH (08:07)
[2022-03-02] MEDS: LOSARTAN 25 MG (COZAAR) TAB PO SCH (08:07)
[2022-03-02] MEDS: PANTOPRAZOLE 40 MG (PROTONIX) TAB PO SCH (08:07)
[2022-03-02] MEDS: APIXABAN 5 MG (ELIQUIS) TABLET PO SCH ×2 (08:08→20:52)
[2022-03-02] MEDS: KCL 10 MEQ TAB (MICRO K) PO SCH ×2 (08:08→20:52)
[2022-03-02] MEDS: LACTOBACILLUS ACIDOPHILUS (PROBIOTIC) CAPSULE PO SCH ×3 (08:08→17:58)
[2022-03-02] MEDS: AMIODARONE 200 MG (CORDARONE) TAB PO SCH (08:09)
[2022-03-02] MEDS: SENNA W/DOCUSATE (SENOKOT S) TABLET PO SCH ×2 (08:27→20:35)
[2022-03-02] MEDS: DOCUSATE SODIUM 100 MG (COLACE) CAP PO SCH ×2 (08:27→20:34)
[2022-03-02] MEDS: polyethylene glycoL POWDER 17 GM (MIRALAX) PACK PO SCH ×3 (08:28→20:35)
--- NOTE | 2022-03-02 09:34 | Occupational Ther Daily Note ---
OT Current Status-Daily Note Subjective Pt supine in bed at beginning of tx, and agreeable to OT/PT cotreat. ADL-Treatment Therapy Code Descriptions/Definitions Functional [place] Measure: 0=Not Assessed/NA 4=Minimal Assistance 1=Total Assistance 5=Supervision or Setup 2=Maximal Assistance 6=Modified [place] 3=Moderate Assistance 7=Complete IndependenceSCALE: Activities may be completed with or without assistive devices. 3-Zatminiyny-gexdiym completes the activity by him/herself with no assistance from a helper. 5-Set-up or Clean-up Assistance-helper sets up or cleans up; patient completes activity. [place] assists only prior to or following the activity. 4-Supervision or Touching Assistance-helper provides verbal cues and/or touching/steadying and/or contact guard assistance as patient completes activity. Assistance may be provided throughout the activity or intermittently. 3-Partial/Moderate Assistance-helper does LESS THAN HALF the effort. [place] lifts, holds or supports trunk or limbs, but provides less than half the effort. 2-Substantial/Maximal Assistance-helper does MORE THAN HALF the effort. [place] lifts or holds trunk or limbs and provides more than half the effort. 0-Ljeqpxfyd-suudsl does ALL the effort. Patient does none of the effort to complete the activity. Or, the assistance of 2 or more helpers is required for the patient to complete the activity. If activity was not attempted, code reason: 7-Patient Refused. 9-Not Applicable-not attempted and the patient did not perform the activity before the current illness, exacerbation or injury. 10-Not Attempted due to Environmental Limitations-(lack of equipment, weather restraints, etc.). 88-Not Attempted due to Medical Conditions or Safety Concerns. Other Treatment OT/PT cotreat ([id number]): PT/OT cotreat required due to the skill required from therapist that a rehab/pre vocational counselor does not possess. PT focusing on LB strengthening, LE placement during transfer and standing balance. OT focusing on ADLs, UB strengthening, and UE placement during transfers. Pt completed toileting on bed mendoza and declined transferring to comode at this time due to comode being uncomfortable. Pt transferred from supine to EOB with ModA for cues and assistance to pull self out of supine position to complete bed bath with assist x2 for standing balance while cleansing bottom. Pt donned shirt with MaxA due to limited mobility in LUE. Pt donned pants with assist x2 for balance while pulling pants over bottom. Pt transferred from EOB to w/c on L side with MaxA for cueing and balance while standing. Pt propelled self to therapy gym in w/c to complete tiffanie exercise for 10min to decrease pain and increase ROM in BUE. Pt then completed 3 stands at parallel bars while performing leg exercises to increase dynamic standing balance. Pt then attempted to complete transfer x2 to mat from w/c on the R side, but pt exhibited weakness in RLE. Pt performed 3 sets of 10 manual leg presses in w/c. Pt propelled self back to room and transferred to EOB with assist x2. Pt supine in bed with call light and phone in reach, family member in room, and all needs met. OT Short Term Goals Short Term Goals Time Frame: Mar 08, 2022 Toileting hygiene: 2 Shower/bathe self: 3 Lower body dressin Putting on/taking off footwear: 3 OT Skilled Nursing Goals Sales Representative [employer] Goals Time Frame: Mar 24, 2022 Eating (QC): 6 Oral Hygiene (QC): 6 Toileting Hygiene (QC): 3 (bowel movements on toilet) Shower/Bathe Self (QC): 4 Upper Body Dressing (QC): 5 Lower Body Dressing (QC): 3 On/Off Footwear (QC): 4 Additional Goals: 1-Demonstrate ADL Tasks, 2-Verbalize Understanding, 3- ImproveStrength/Lalit 1=Demonstrate adherence to instructed precautions during ADL tasks. 2=Patient will verbalize/demonstrate understanding of assistive devices/modifications for ADL. 3=Patient will improve strength/tolerance for activity to enable patient to perform ADL's. OT Education/Plan Problem List/Assessment Assessment: Decreased Activ Tolerance, Decreased UE Strength, Impaired Bed Mobility, Impaired Funct Balance, Impaired I ADL's, Impaired Self-Care Skills Discharge Recommendations Plan/Recommendations: Continue POC Treatment Plan/Plan of Care Patient would benefit from OT for education, treatment and training to promote independence in ADL's, mobility, safety and/or upper extremity function for ADL's. Plan of Care: ADL Retraining, Caregiver Training, Functional Mobility, Group Exercise/Act as Ind, UE Funct Exercise/Act, W/C Management Training Treatment Duration: Mar 24, 2022 Frequency: At least 5 of 7 days/Wk (IRF) Estimated Hrs Per Day: 1.5 hours per day Rehab Potential: Guarded Time/GCodes Start Time: 08:00 Stop Time: 09:30 Total Time Billed (hr/min): 90 Billed Treatment Time 1 visit, ADL 3 (40min), FA 2 (30min), EX (20min) Elsa Rdz Mar 02, 2022 09:34
--- NOTE | 2022-03-02 09:35 | Physical Therapy Daily Note ---
PT Daily Note-Current Subjective Patient in bed pre tx, agrees to PT, has 4/10 pain in left hip and leg, nurse gives meds. Will be co-treating with OT due to poor patient mobility, strength, endurance, severe debility, coordinate UE and LE with activity, safety and reduce risk of falls. Appearance Patient in bed post tx with nurse call, phone, tray, all needs met. Mental Status Patient Orientation: Person, Place, Situation Attachments: Oxygen, IV Transfers SCALE: Activities may be completed with or without assistive devices. 0-Rdigpdapkb-fzksqvx completes the activity by him/herself with no assistance from a helper. 5-Set-up or Clean-up Assistance-helper sets up or cleans up; patient completes activity. [place] assists only prior to or following the activity. 4-Supervision or Touching Assistance-helper provides verbal cues and/or touching/steadying and/or contact guard assistance as patient completes activity. Assistance may be provided throughout the activity or intermittently. 3-Partial/Moderate Assistance-helper does LESS THAN HALF the effort. [place] lifts, holds or supports trunk or limbs, but provides less than half the effort. 2-Substantial/Maximal Assistance-helper does MORE THAN HALF the effort. [place] lifts or holds trunk or limbs and provides more than half the effort. 7-Qirxfwstv-oqzwvt does ALL the effort. Patient does none of the effort to com plete the activity. Or, the assistance of 2 or more helpers is required for the patient to complete the activity. If activity was not attempted, code reason: 7-Patient Refused. 9-Not Applicable-not attempted and the patient did not perform the activity before the current illness, exacerbation or injury. 10-Not Attempted due to Environmental Limitations-(lack of equipment, weather restraints, etc.). 88-Not Attempted due to Medical Conditions or Safety Concerns. Roll Left & Right (QC): 3 Sit to Lying (QC): 4 Lying to Sitting/Side of Bed(Q: 3 Sit to Stand (QC): 2 Chair/Qkj-sp-Orpkj Xfer(QC): 2 Patient has to have a BM at the beginning of tx, he states he would rather use a bed mendoza this time because the commode cuts into his legs and hurts. Patient needs assist to get his shorts off and then roll to the side to place the bedpan. When done he needs assist to roll and clean and then min assist to sit to the side of the bed. Patient then bathes and partially dresses. Patient then stands with max assist and therapist can finish dressing and he transfers to WC. Weight Bearing Full Weight Bearing Wheelchair Training Does the Pt Use a Wheelchair?: Yes Wheel 50 ft with 2 turns (QC): 4 Wheel 150 ft (QC): 4 Type of Wheelchair: Manual 150', 100', very slow, needs many rest breaks Exercises Standin way Ex=Flex, Abd, Ext (with residual limb while standing in parallel bars), Sit to Stand (x3) Standing Reps: 15 Patient also performs wall pulleys for shoulder ROM, manually resisted leg press 3 sets of 10, attempted to practice more stand pivot transfers but patient could not pivot on his right foot at all Treatments PT performs bed mobility and transfers, WC mobility, LE strengthening, standing and positioning during dressing and bathing, OT performed toileting, dressing, bathing, UE positioning and safety during activity. Assessment Current Status: Poor Progress Patient's right leg is not improving in strength, he may need to use the sliding board for transfers. PT Short Term Goals Short Term Goals Time Frame: Mar 03, 2022 Roll Left & Right: 4 Sit to lyin (Batsheva) Lying to sitting on side of be: 3 (Batsheva) Sit to stand: 3 (modA) Chair/ykj-uu-rflan transfer: 3 (modA) PT Handle Sewer Goals Handle Sewer Goals PT Half-Way Goals Time Frame: Mar 17, 2022 Roll Left & Right (QC): 6 Sit to Lying (QC): 4 (SBA) Lying-Sitting on Side/Bed(QC): 4 (SBA) Sit to Stand (QC): 3 (Batsheva) Chair/Rua-ct-Krxxd Xfer(QC): 3 (Batsheva) Toilet Transfer (QC): 3 (Batsheva) Car Transfer (QC): 3 (Batsheva) Does the Patient Walk: No and Walking Goal NOT indicated Walk 10 feet (QC): 88 Walk 50ft with 2 Turns (QC): 88 Walk 150 ft (QC): 88 Walking 10ft on Uneven Surface: 88 1 Step (curb) (QC): 88 4 Steps (QC): 88 12 Steps (QC): 88 Picking up an Object (QC): 88 Wheel 50 feet with 2 turns (QC: 6 Wheel 150 feet: 6 PT Plan Problem List Problem List: Activity Tolerance, Functional Strength, Safety, Balance, Transfer, Bed Mobility, ROM Treatment/Plan Treatment Plan: Continue Plan of Care Treatment Plan: Bed Mobility, Education, Functional Activity Lalit, Functional Strength, Group Therapy, Safety, Therapeutic Exercise, Transfers Treatment Duration: Mar 17, 2022 Frequency: At least 5 of 7 days/Wk (IRF) Estimated Hrs Per Day: 1.5 hours per day Patient and/or Family Agrees t: Yes Safety Risks/Education Patient Education: Transfer Techniques, Correct Positioning, W/C Management, Safety Issues Teaching Recipient: Patient Teaching Methods: Demonstration, Discussion Response to Teaching: Reinforcement Needed Time/GCodes Time In: 0800 Time Out: 929 Total Billed Treatment Time: 90 Total Billed Treatment 1 visit EX 30' FA 60' JESSICA FOX PT Mar 02, 2022 09:35
[2022-03-02] MEDS: VANCOMYCIN 1500 MG/NS 500 ML IVPB IV SCH ×2 (09:49)
--- NOTE | 2022-03-02 10:06 | PM&R Progress Note ---
Subjective HPI/CC On Admission Date Seen by Provider: Mar 02, 2022 Time Seen by Provider: 09:30 Subjective/Events-last exam 03/02/2022: Hemoglobin is 8.5 after one unit of blood yesterday White count is 16,000 Bowels moved a little bit today, will get aggressive with that Hep locking IV fluid 03/01/2022: Pt had some incontinence today Dressing was saturated Decrease BP medication for Dr. Kerns A little bit confused Will give one unit of blood today Maintain on broad spectrum antibiotics White count still elevated at 17 02/28/2022: Pt is doing well Mild hypotension not due to sepsis so will give 500 ccs bolus IV fluids 60 an hour Decrease procalcitonin Zosyn and Vancomycin maintained 02/27/2022: Pt is doing a lot better Sleeps all the time Fever and elevated white count with procalcitonin elevation prompting blood and urine cultures, chest x-ray, and empiric IV antibiotics PICC will be placed 02/26/2022: Patient settling in well Sugars lower so will hold Metformin No pain except hip and left shoulder Glucometer assessed at bedside No issues otherwise Review of Systems General: Fatigue, Malaise Gastrointestinal: Constipation Musculoskeletal: arm pain, leg pain Objective Exam Vital Signs Vital Signs Date Time Temp Pulse Resp B/P (MAP) Pulse Ox O2 Delivery O2 Flow Rate FiO2 03/02/22 20:56 36.5 75 18 135/60 (85) 97 Nasal Cannula 1.50 Capillary Refill : General Appearance: No Apparent Distress, WD/WN HEENT: PERRL/EOMI, Normal ENT Inspection, Pharynx Normal Neck: Normal Inspection, Supple Respiratory: No Accessory Muscle Use, No Respiratory Distress Cardiovascular: Regular Rate, Rhythm, No Edema, No Gallop, No JVD, No Murmur, Normal Peripheral Pulses Gastrointestinal: Normal Bowel Sounds, No Organomegaly, No Pulsatile Mass, Non Tender, Soft Back: Normal Inspection, No CVA Tenderness, No Vertebral Tenderness Extremity: Other (left AKA with dressing in place C/D/I) Neurologic/Psychiatric: Alert, Oriented x3 Skin: Normal Color, Warm/Dry Lymphatic: No Adenopathy Results/Procedures Lab Laboratory Tests 03/02/22 06:50 Patient resulted labs reviewed. FIM Transfers Therapy Code Descriptions/Definitions Functional [place] Measure: 0=Not Assessed/NA 4=Minimal Assistance 1=Total Assistance 5=Supervision or Setup 2=Maximal Assistance 6=Modified [place] 3=Moderate Assistance 7=Complete IndependenceSCALE: Activities may be completed with or without assistive devices. 2-Xgtpmrkikf-gnrfgfe completes the activity by him/herself with no assistance from a helper. 5-Set-up or Clean-up Assistance-helper sets up or cleans up; patient completes activity. [place] assists only prior to or following the activity. 4-Supervision or Touching Assistance-helper provides verbal cues and/or touching/steadying and/or contact guard assistance as patient completes activity. Assistance may be provided throughout the activity or intermittently. 3-Partial/Moderate Assistance-helper does LESS THAN HALF the effort. [place] lifts, holds or supports trunk or limbs, but provides less than half the effort. 2-Substantial/Maximal Assistance-helper does MORE THAN HALF the effort. [place] lifts or holds trunk or limbs and provides more than half the effort. 2-Aebgxearp-wdpwtk does ALL the effort. Patient does none of the effort to complete the activity. Or, the assistance of 2 or more helpers is required for the patient to complete the activity. If activity was not attempted, code reason: 7-Patient Refused. 9-Not Applicable-not attempted and the patient did not perform the activity before the current illness, exacerbation or injury. 10-Not Attempted due to Environmental Limitations-(lack of equipment, weather restraints, etc.). 88-Not Attempted due to Medical Conditions or Safety Concerns. Roll Left to Right (QC): 3 Sit to Lying (QC): 4 Sit to Stand (QC): 2 Chair/Dyh-nr-Nktca Xfer(QC): 2 Car Transfer (QC): 2 Gait Training Does the Patient Walk?: No and Walking Goal NOT indicated Walk 10 feet (QC): 88 Walk 50 ft with 2 Turns(QC): 88 Walk 150 ft (QC): 88 Walking 10ft/uneven surface-QC: 88 Wheelchair Training Does the Pt Use a Wheelchair?: Yes Distance: 100'x2 Wheel 50 ft with 2 turns (QC): 4 Wheel 150 ft (QC): 4 Type of Wheelchair: Manual Stair Training 1 Step (curb) (QC): 88 4 Steps (QC): 88 12 Steps (QC): 88 Balance Picking up an Object (QC): 88 ADL-Treatment Eating (QC): 5 (Assistance opening containers) Oral Hygiene (QC): 5 (set up at sink) Shower/Bathe Self (QC): 1 (Assist x2 with sponge bath to help with bed mobility and wiping) Upper Body Dressing (QC): 3 (Mod A. Assist required overhead and slight assistance down trunk.) Lower Body Dressing (QC): 1 (Assist x2) On/Off Footwear (QC): 1 Toileting Hygiene (QC): 1 (Assist x2 for bowel movement. 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 Fall 02/21/22 resulting in left shoulder injury causing further debility and limiting ADL/independence Severe PVD PAF OAC HTN HLP DM Hypothyroidism Previous hypoglycemia required holding metformin and glimepiride but now on lower dose Constipation resolved Poor venous access requiring PICC 02/27/22 Anemia post op requiring transfusion 03/01/22 Plan: PT OT w/c mobility Home meds 02/26/2022: Pain control Monitor sugar Hold Metformin 02/27/22: Empiric broad spectrum abx Hold Metformin and OAC PICC line 02/28/2022: IV abx Monitor closely 03/01/2022: Transfuse Broad spectrum abx 03/02/2022: Monitor hgb Broad spectrum abx (1) S/P AKA (above knee amputation) (2) Gangrene XIOMARA DCIKENS DO Mar 02, 2022 10:06
--- NOTE | 2022-03-02 12:50 | Progress Note - Cardiology ---
Cardiology SOAP Progress Note Subjective: Lying in bed States he feels "pretty good" Objective: I&O/Vital Signs 03/06/22 03/06/22 03/06/22 07:36 08:42 09:00 Temp 34.9 Pulse 101 Resp 20 B/P (MAP) 172/78 (109) Pulse Ox 96 96 97 O2 Delivery Nasal Cannula Nasal Cannula Nasal Cannula O2 Flow Rate 3.00 3.00 3.00 Constitutional: AAO x 3, well-developed, well-nourished Respiratory: No accessory muscle use, No respiratory distress; chest expansion is symmetric, chest is bilaterally symmetric, lungs clear to auscultation Cardiovascular: regular rate-rhythm; No JVD; S1 and S2 Gastrointestional: No tender; soft, round, audible bowel sounds Extremities: other (RLE without swelling; dressing to R AKA stump which is D/I, not removed) Neurologic/Psychiatric: grossly intact (moves all extremities) Skin: No rash on exposed areas, No ulcerations on exposed areas; other (abrasion to right leg) Results/Procedures: Labs Laboratory Tests 03/05/22 15:10: Glucometer 204H 03/05/22 16:10: Vancomycin Level Trough 23.0H 03/05/22 20:31: Glucometer 227H 03/06/22 05:10: White Blood Count 20.1H, Red Blood Count 4.20L, Hemoglobin 10.2L, Hematocrit 35L , Mean Corpuscular Volume 84, Mean Corpuscular Hemoglobin 24L, Mean Corpuscular Hemoglobin Concent 29L, Red Cell Distribution Width 18.7H, Platelet Count 364, Mean Platelet Volume 10.6, Immature Granulocyte % (Auto) 2, Neutrophils (%) (Auto) 90H, Lymphocytes (%) (Auto) 4L, Monocytes (%) (Auto) 3, Eosinophils (%) (Auto) 0, Basophils (%) (Auto) 0, Neutrophils # (Auto) 18.2H, Lymphocytes # (Auto) 0.8L, Monocytes # (Auto) 0.6, Eosinophils # (Auto) 0.1, Basophils # (Auto) 0.1, Immature Granulocyte # (Auto) 0.4H, Sodium Level 139, Potassium Level 3.9, Chloride Level 101, Carbon Dioxide Level 26, Anion Gap 12, Blood Urea Nitrogen 9, Creatinine 0.67, Estimat Glomerular Filtration Rate 100, BUN/Creatinine Ratio 13, Glucose Level 241H, Calcium Level 9.2, Corrected William cium 10.1, Total Bilirubin 0.4, Aspartate Amino Transf (AST/SGOT) 22, Alanine Aminotransferase (ALT/SGPT) 31, Alkaline Phosphatase 97, B-Type Natriuretic Peptide 913.4H, Total Protein 6.6, Albumin 2.9L 03/06/22 06:51: Procalcitonin 0.07 03/06/22 08:46: Blood Gas Puncture Site L RAD, Blood Gas Patient Temperature 37, Arterial Blood pH 7.40, Arterial Blood Partial Pressure CO2 52H, Arterial Blood Partial Pressure O2 79, Arterial Blood HCO3 31H, Arterial Blood Total CO2 33.0H, Arterial Blood Oxygen Saturation 96, Arterial Blood Base Excess 6.6H, Ramesh Test YES-POS, Blood Gas Ventilator Setting NO, Blood Gas Inspired Oxygen 3 03/06/22 08:55: Lactic Acid Level 1.28 03/06/22 10:54: Glucometer 253H Microbiology 02/27/22 Blood Culture - Final, Complete No growth A/P: Assessment: Transient hypotension - asymptomatic S/P L BKA in late January 2022 at [facility] - 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 Perez on 02-23-22. Leukocytosis - management per medical services PVD - reports PTCA bilat by Dr. Álvarez at [facility] in 2020 - reports stent x 2 to the L leg 02-03-22 (prior to BKA) by Dr. Sánchez at [facility] - reports PTCA to R leg 02-05-[address] Sánchez CAD - H/O CABG x 5 vessel [place] [address] Parry Chronic systolic CHF - maintained on diuretics ICM - last echo at [place] reported LVEF 40% (per nursing staff, date unknown) - maintained on Losartan Carotid dz - H/O L CEA in 2010 at [facility] - H/O chronic occlusion of the R carotid per pt report PAF - maintained on Amiodarone and Toprol - Previously on OAC with Eliquis (currently not taking) - H/O cardioversions in the past, last one >2 yrs ago HTN HLD DM 2 Anemia - undetermined etiology - management by medical services Plan: Transient hypotension - possible d/t vol depletion asymptomatic - reduce antihypertensive regimen and diuretics - BP improved H/O PAF - continue Amiodarone - OAC has been resumed CAD and carotid dz - continue ASA, low dose ICM - reduce Losartan H/O systolic CHF - clinically compensated - continue reduced dose of diuretics Leukocytosis - management per medical services (IV abx) Monitor lab closely We have not received records from [facility] as of yet DANIEL BORRERO [facility] Mar 02, 2022 12:50
[2022-03-02 20:56] VITALS: BP 135/60
[2022-03-03] MEDS: PIPERACILLIN SODIUM/TAZOBACTAM 4.5 GM in NS (IVPB) 100 ML IV SCH ×3 (02:56→18:52)
[2022-03-03] MEDS: LEVOTHYROXINE 100 MCG (LEVOTHROID) TAB PO SCH (05:47)
[2022-03-03] MEDS: inSUlin ASPART (NovoLOG) 1 UNIT/0.01 ML (CHARGE PER UNIT) SC SCH ×4 (05:51→20:35)
--- NOTE | 2022-03-03 06:59 | PM&R Progress Note ---
Subjective HPI/CC On Admission Date Seen by Provider: Mar 03, 2022 Time Seen by Provider: 09:00 Subjective/Events-last exam 03/03/2022: Pt is doing well White blood cell count is 14 Hemoglobin is 8.9 Stump looks really good Overall doing much better 03/02/2022: Hemoglobin is 8.5 after one unit of blood yesterday White count is 16,000 Bowels moved a little bit today, will get aggressive with that Hep locking IV fluid 03/01/2022: Pt had some incontinence today Dressing was saturated Decrease BP medication for Dr. Kerns A little bit confused Will give one unit of blood today Maintain on broad spectrum antibiotics White count still elevated at 17 02/28/2022: Pt is doing well Mild hypotension not due to sepsis so will give 500 ccs bolus IV fluids 60 an hour Decrease procalcitonin Zosyn and Vancomycin maintained 02/27/2022: Pt is doing a lot better Sleeps all the time Fever and elevated white count with procalcitonin elevation prompting blood and urine cultures, chest x-ray, and empiric IV antibiotics PICC will be placed 02/26/2022: Patient settling in well Sugars lower so will hold Metformin No pain except hip and left shoulder Glucometer assessed at bedside No issues otherwise Review of Systems General: Fatigue, Malaise Objective Exam Vital Signs Vital Signs Date Time Temp Pulse Resp B/P (MAP) Pulse Ox O2 Delivery O2 Flow Rate FiO2 03/03/22 20:42 Nasal Cannula 1.50 03/03/22 20:29 36.2 78 20 143/60 (87) 97 Capillary Refill : General Appearance: No Apparent Distress, WD/WN HEENT: PERRL/EOMI, Normal ENT Inspection, Pharynx Normal Neck: Normal Inspection, Supple Respiratory: No Accessory Muscle Use, No Respiratory Distress Cardiovascular: Regular Rate, Rhythm, No Edema, No Gallop, No JVD, No Murmur, Normal Peripheral Pulses Gastrointestinal: Normal Bowel Sounds, No Organomegaly, No Pulsatile Mass, Non Tender, Soft Back: Normal Inspection, No CVA Tenderness, No Vertebral Tenderness Extremity: Other (left AKA with dressing in place C/D/I) Neurologic/Psychiatric: Alert, Oriented x3 Skin: Normal Color, Warm/Dry Lymphatic: No Adenopathy Results/Procedures Lab Laboratory Tests 03/03/22 07:45 Patient resulted labs reviewed. FIM Transfers Therapy Code Descriptions/Definitions Functional [place] Measure: 0=Not Assessed/NA 4=Minimal Assistance 1=Total Assistance 5=Supervision or Setup 2=Maximal Assistance 6=Modified [place] 3=Moderate Assistance 7=Complete IndependenceSCALE: Activities may be completed with or without assistive devices. 2-Qeexzuxrps-jshuodi completes the activity by him/herself with no assistance from a helper. 5-Set-up or Clean-up Assistance-helper sets up or cleans up; patient completes activity. [place] assists only prior to or following the activity. 4-Supervision or Touching Assistance-helper provides verbal cues and/or touching/steadying and/or contact guard assistance as patient completes activity. Assistance may be provided throughout the activity or intermittently. 3-Partial/Moderate Assistance-helper does LESS THAN HALF the effort. [place] lifts, holds or supports trunk or limbs, but provides less than half the effort. 2-Substantial/Maximal Assistance-helper does MORE THAN HALF the effort. [place] lifts or holds trunk or limbs and provides more than half the effort. 3-Jwatulqwt-vhkdla does ALL the effort. Patient does none of the effort to complete the activity. Or, the assistance of 2 or more helpers is required for the patient to complete the activity. If activity was not attempted, code reason: 7-Patient Refused. 9-Not Applicable-not attempted and the patient did not perform the activity before the current illness, exacerbation or injury. 10-Not Attempted due to Environmental Limitations-(lack of equipment, weather restraints, etc.). 88-Not Attempted due to Medical Conditions or Safety Concerns. Roll Left to Right (QC): 3 Sit to Lying (QC): 4 Sit to Stand (QC): 2 Chair/Rom-zh-Mpahj Xfer(QC): 2 Car Transfer (QC): 2 Gait Training Does the Patient Walk?: No and Walking Goal NOT indicated Walk 10 feet (QC): 88 Walk 50 ft with 2 Turns(QC): 88 Walk 150 ft (QC): 88 Walking 10ft/uneven surface-QC: 88 Wheelchair Training Does the Pt Use a Wheelchair?: Yes Distance: 100'x2 Wheel 50 ft with 2 turns (QC): 4 Wheel 150 ft (QC): 4 Type of Wheelchair: Manual Stair Training 1 Step (curb) (QC): 88 4 Steps (QC): 88 12 Steps (QC): 88 Balance Picking up an Object (QC): 88 ADL-Treatment Eating (QC): 5 (Assistance opening containers) Oral Hygiene (QC): 5 (set up at sink) Shower/Bathe Self (QC): 1 (Assist x2 with sponge bath to help with bed mobility and wiping) Upper Body Dressing (QC): 3 (Mod A. Assist required overhead and slight assistance down trunk.) Lower Body Dressing (QC): 1 (Assist x2) On/Off Footwear (QC): 1 Toileting Hygiene (QC): 1 (Assist x2 for bowel movement. 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 Fall 02/21/22 resulting in left shoulder injury causing further debility and limiting ADL/independence Severe PVD PAF OAC HTN HLP DM Hypothyroidism Previous hypoglycemia required holding metformin and glimepiride but now on lower dose Constipation resolved Poor venous access requiring PICC 02/27/22 Anemia post op requiring transfusion 03/01/22 Plan: PT OT w/c mobility Home meds 02/26/2022: Pain control Monitor sugar Hold Metformin 02/27/22: Empiric broad spectrum abx Hold Metformin and OAC PICC line 02/28/2022: IV abx Monitor closely 03/01/2022: Transfuse Broad spectrum abx 03/02/2022: Monitor hgb Broad spectrum abx 03/03/2022: IV abx Monitor hgb (1) S/P AKA (above knee amputation) (2) Gangrene XIOMARA DICKENS DO Mar 03, 2022 06:59
[2022-03-03 07:41] VITALS: BP 151/68
[2022-03-03] MEDS: LACTOBACILLUS ACIDOPHILUS (PROBIOTIC) CAPSULE PO SCH ×3 (07:51→17:13)
[2022-03-03] MEDS: PANTOPRAZOLE 40 MG (PROTONIX) TAB PO SCH (07:53)
[2022-03-03] MEDS: AMIODARONE 200 MG (CORDARONE) TAB PO SCH (07:53)
[2022-03-03] MEDS: KCL 10 MEQ TAB (MICRO K) PO SCH ×2 (07:53→20:35)
[2022-03-03] MEDS: FUROSEMIDE 40 MG (LASIX) TAB PO SCH (07:54)
[2022-03-03] MEDS: APIXABAN 5 MG (ELIQUIS) TABLET PO SCH ×2 (07:54→20:35)
[2022-03-03] MEDS: LOSARTAN 25 MG (COZAAR) TAB PO SCH (07:54)
[2022-03-03] MEDS: DOCUSATE SODIUM 100 MG (COLACE) CAP PO SCH ×2 (07:58→20:36)
[2022-03-03] MEDS: SENNA W/DOCUSATE (SENOKOT S) TABLET PO SCH ×2 (07:59→20:35)
[2022-03-03] MEDS: polyethylene glycoL POWDER 17 GM (MIRALAX) PACK PO SCH ×2 (07:59→20:36)
[2022-03-03 08:06] LABS: BASOPHILS # (AUTO) 0.1 10^3/uL (0.0-0.1); BASOPHILS % (AUTO) 0 % (0-10); EOSINOPHILS # (AUTO) 0.2 10^3/uL (0.0-0.3); EOSINOPHILS % (AUTO) 2 % (0-10); HEMATOCRIT 30 % (40-54); HEMOGLOBIN 8.9 g/dL (13.3-17.7); LYMPHOCYTES # (AUTO) 0.8 10^3/uL (1.0-4.0); LYMPHOCYTES % (AUTO) 6 % (12-44); MEAN CORPUSCULAR HEMOGLOBIN 24 pg (25-34); MEAN CORPUSCULAR HGB CONC 30 g/dL (32-36); MEAN CORPUSCULAR VOLUME 82 fL (80-99); MEAN PLATELET VOLUME 11.2 fL (9.0-12.2); MONOCYTES # (AUTO) 0.6 10^3/uL (0.0-1.0); MONOCYTES % (AUTO) 4 % (0-12); NEUTROPHILS # (AUTO) 12.7 10^3/uL (1.8-7.8); NEUTROPHILS % (AUTO) 86 % (42-75); PLATELET COUNT 304 10^3/uL (130-400); WHITE BLOOD COUNT 14.8 10^3/uL (4.3-11.0)
[2022-03-03 08:26] LABS: ALBUMIN 2.4 GM/DL (3.2-4.5); BILIRUBIN,TOTAL 0.4 MG/DL (0.1-1.0); CALCIUM 8.4 MG/DL (8.5-10.1); CREATININE SERUM 0.68 MG/DL (0.60-1.30); POTASSIUM 3.6 MMOL/L (3.6-5.0); TOTAL PROTEIN 5.7 GM/DL (6.4-8.2)
[2022-03-03] MEDS: VANCOMYCIN 1500 MG/NS 500 ML IVPB IV SCH ×2 (10:13)
--- NOTE | 2022-03-03 10:22 | Physical Therapy Daily Note ---
PT Daily Note-Current Subjective Patient in bed pre tx, agrees to PT, has 6/10 pain in left residual limb. Appearance Patient in recliner post tx with nurse call ,phone, tray, all needs met. Mental Status Patient Orientation: Person, Place, Situation Transfers SCALE: Activities may be completed with or without assistive devices. 4-Jgvkczfbrc-dkpshmd completes the activity by him/herself with no assistance from a helper. 5-Set-up or Clean-up Assistance-helper sets up or cleans up; patient completes activity. [place] assists only prior to or following the activity. 4-Supervision or Touching Assistance-helper provides verbal cues and/or touching/steadying and/or contact guard assistance as patient completes activity. Assistance may be provided throughout the activity or intermittently. 3-Partial/Moderate Assistance-helper does LESS THAN HALF the effort. [place] lifts, holds or supports trunk or limbs, but provides less than half the effort. 2-Substantial/Maximal Assistance-helper does MORE THAN HALF the effort. [place] lifts or holds trunk or limbs and provides more than half the effort. 7-Vzmuyxojv-agnuka does ALL the effort. Patient does none of the effort to complete the activity. Or, the assistance of 2 or more helpers is required for the patient to complete the activity. If activity was not attempted, code reason: 7-Patient Refused. 9-Not Applicable-not attempted and the patient did not perform the activity before the current illness, exacerbation or injury. 10-Not Attempted due to Environmental Limitations-(lack of equipment, weather restraints, etc.). 88-Not Attempted due to Medical Conditions or Safety Concerns. Roll Left & Right (QC): 3 Lying to Sitting/Side of Bed(Q: 3 Sit to Stand (QC): 3 Chair/Tzh-qz-Aejwa Xfer(QC): 3 Patient min assist for supine to sit, performed a sliding board transfer with max assist to the , when coming back to his room he stood with mod assist and used a rolling walker to transfer to recliner with mod assist. Weight Bearing Full Weight Bearing Wheelchair Training Does the Pt Use a Wheelchair?: Yes Wheel 50 ft with 2 turns (QC): 4 Wheel 150 ft (QC): 4 Type of Wheelchair: Manual SBA, very slow, needs several rest breaks Exercises manually resisted leg press 3 sets of 10, stood x3 in the parallel bars for about a minute each time, performed 4 sets of 5 of mini-squats in the parallel bars, wanted to loosen up shoulders with wall pulleys (x20), patient's bandage on his residual limb came off during tx, it was very saturated, nurse came in and changed bandage. Treatments PT performed bed mobility and transfers, standing, LE strengthening, OT performed UE ROM, some ADL's, and UE positioning and safety during activity. Assessment Current Status: Poor Progress continued severe weakness in RLE PT Short Term Goals Short Term Goals Time Frame: Mar 03, 2022 Roll Left & Right: 4 Sit to lyin ([place]) Lying to sitting on side of be: 3 ([place]) Sit to stand: 3 (modA) Chair/kuz-bc-qgpsl transfer: 3 (modA) PT Systems Architect Goals Fdc Goals PT Systems Architect Goals Time Frame: Mar 17, 2022 Roll Left & Right (QC): 6 Sit to Lying (QC): 4 (SBA) Lying-Sitting on Side/Bed(QC): 4 (SBA) Sit to Stand (QC): 3 ([place]) Chair/Ilb-bm-Qkdex Xfer(QC): 3 ([place]) Toilet Transfer (QC): 3 ([place]) Car Transfer (QC): 3 ([place]) Does the Patient Walk: No and Walking Goal NOT indicated Walk 10 feet (QC): 88 Walk 50ft with 2 Turns (QC): 88 Walk 150 ft (QC): 88 Walking 10ft on Uneven Surface: 88 1 Step (curb) (QC): 88 4 Steps (QC): 88 12 Steps (QC): 88 Picking up an Object (QC): 88 Wheel 50 feet with 2 turns (QC: 6 Wheel 150 feet: 6 PT Plan Problem List Problem List: Activity Tolerance, Functional Strength, Safety, Balance, Transfer, Bed Mobility, ROM Treatment/Plan Treatment Plan: Continue Plan of Care Treatment Plan: Bed Mobility, Education, Functional Activity Lalit, Functional Strength, Group Therapy, Safety, Therapeutic Exercise, Transfers Treatment Duration: Mar 17, 2022 Frequency: At least 5 of 7 days/Wk (IRF) Estimated Hrs Per Day: 1.5 hours per day Patient and/or Family Agrees t: Yes Safety Risks/Education Patient Education: Transfer Techniques, Correct Positioning, W/C Management, Safety Issues Teaching Recipient: Patient Teaching Methods: Demonstration, Discussion Response to Teaching: Reinforcement Needed Time/GCodes Time In: 0900 Time Out: 1030 Total Billed Treatment Time: 90 Total Billed Treatment 1 visit EX 45' FA 45' co-treated from [id number] JESSICA FOX PT Mar 03, 2022 10:22
--- NOTE | 2022-03-03 10:24 | Occupational Ther Daily Note ---
OT Current Status-Daily Note Subjective Pt supine in bed, agreed to OT/PT cotreat. Mental Status/Objective Patient Orientation: Normal For Age Attachments: Oxygen (2L) ADL-Treatment Therapy Code Descriptions/Definitions Functional [place] Measure: 0=Not Assessed/NA 4=Minimal Assistance 1=Total Assistance 5=Supervision or Setup 2=Maximal Assistance 6=Modified Cory 3=Moderate Assistance 7=Complete IndependenceSCALE: Activities may be completed with or without assistive devices. 5-Kcrptaiobf-zdxqqus completes the activity by him/herself with no assistance from a helper. 5-Set-up or Clean-up Assistance-helper sets up or cleans up; patient completes activity. [place] assists only prior to or following the activity. 4-Supervision or Touching Assistance-helper provides verbal cues and/or touching/steadying and/or contact guard assistance as patient completes activity. Assistance may be provided throughout the activity or intermittently. 3-Partial/Moderate Assistance-helper does LESS THAN HALF the effort. [place] lifts, holds or supports trunk or limbs, but provides less than half the effort. 2-Substantial/Maximal Assistance-helper does MORE THAN HALF the effort. [place] lifts or holds trunk or limbs and provides more than half the effort. 5-Rcrkhvyen-imuknq does ALL the effort. Patient does none of the effort to complete the activity. Or, the assistance of 2 or more helpers is required for the patient to complete the activity. If activity was not attempted, code reason: 7-Patient Refused. 9-Not Applicable-not attempted and the patient did not perform the activity before the current illness, exacerbation or injury. 10-Not Attempted due to Environmental Limitations-(lack of equipment, weather restraints, etc.). 88-Not Attempted due to Medical Conditions or Safety Concerns. Other Treatment OT/PT cotreat ([id number]): PT/OT cotreat required due to the skill required from therapist that a rehab liaison does not possess. PT focusing on LB strengthening, LE placement during transfer and standing balance. OT focusing on ADLs, UB strengthening, and UE placement during transfers. Pt began tx supine in bed and transferred to EOB with Diego to perform oral hygiene with set up assist. Pt then performed sliding board transfer with MaxA for cueing and assist to move bottom over board. Pt propelled self in w/c to therapy gym, taking Min rest breaks. in therapy gym, pt completed 2min of pulleys to increase ROM and decrease pain in BUE. Pt then performed 3 stands at parallel bars while completing 5 squats each stand. Pt then completed manual leg press 3 rounds 10 sets each. Pt propelled self back to room in w/c, taking min rest breaks. Pt transferred to recliner on L side with assist x2 for balance while standing and to ensure correct positioning. Pt in recliner with call light and phone in reach, all needs met. Education OT Patient Education: Correct positioning, Transfer techniques Teaching Recipient: Patient Teaching Methods: Discussion Response to Teaching: Verbalize Understanding OT Short Term Goals Short Term Goals Time Frame: Mar 08, 2022 Toileting hygiene: 2 Shower/bathe self: 3 Lower body dressin Putting on/taking off footwear: 3 OT Ceramic Capacitor Processor Goals Ceramic Capacitor Processor Goals Time Frame: Mar 24, 2022 Eating (QC): 6 Oral Hygiene (QC): 6 Toileting Hygiene (QC): 3 (bowel movements on toilet) Shower/Bathe Self (QC): 4 Upper Body Dressing (QC): 5 Lower Body Dressing (QC): 3 On/Off Footwear (QC): 4 Additional Goals: 1-Demonstrate ADL Tasks, 2-Verbalize Understanding, 3-ImproveStrength/Lalit 1=Demonstrate adherence to instructed precautions during ADL tasks. 2=Patient will verbalize/demonstrate understanding of assistive devices/modifications for ADL. 3=Patient will improve strength/tolerance for activity to enable patient to perform ADL's. OT Education/Plan Problem List/Assessment Assessment: Decreased Activ Tolerance, Decreased Safety Aware, Impaired Bed Mobility, Impaired Coordination, Impaired Funct Balance, Impaired I ADL's, Impaired Self-Care Skills Discharge Recommendations Plan/Recommendations: Continue POC Treatment Plan/Plan of Care Patient would benefit from OT for education, treatment and training to promote independence in ADL's, mobility, safety and/or upper extremity function for ADL's. Plan of Care: ADL Retraining, Caregiver Training, Functional Mobility, Group Exercise/Act as Ind, UE Funct Exercise/Act, W/C Management Training Treatment Duration: Mar 24, 2022 Frequency: At least 5 of 7 days/Wk (IRF) Estimated Hrs Per Day: 1.5 hours per day Rehab Potential: Guarded Time/GCodes Start Time: 09:00 Stop Time: 10:30 Total Time Billed (hr/min): 90 Billed Treatment Time 1 visit, FA 3 (50min), EX 2 (30min), ADL (10min) Elsa Rdz Mar 03, 2022 10:24
--- NOTE | 2022-03-03 11:55 | Progress Note - Cardiology ---
Cardiology SOAP Progress Note Subjective: No cp or palp or syncope No shortness of breath at rest No n/v/d Gen weakness and malaise are improving Objective: I&O/Vital Signs 03/03/22 03/03/22 07:41 08:37 Temp 36.5 Pulse 92 Resp 22 B/P (MAP) 151/68 (95) Pulse Ox 91 O2 Delivery Nasal Cannula Nasal Cannula O2 Flow Rate 1.50 1.50 03/03/22 00:00 Intake Total 200 ml Balance 200 ml Constitutional: AAO x 3, well-developed, well-nourished Respiratory: No accessory muscle use, No respiratory distress; chest expansion is symmetric, chest is bilaterally symmetric, lungs clear to auscultation Cardiovascular: regular rate-rhythm; No JVD; S1 and S2 Gastrointestional: No tender; soft, round, audible bowel sounds Extremities: other (RLE without swelling; dressing to R AKA stump which is D/I, not removed) Neurologic/Psychiatric: grossly intact (moves all extremities) Skin: No rash on exposed areas, No ulcerations on exposed areas; other (abrasion to right leg) Results/Procedures: Labs Laboratory Tests 03/02/22 15:40: Glucometer 162H 03/02/22 21:10: Glucometer 176H 03/03/22 07:45: White Blood Count 14.8H, Red Blood Count 3.66L, Hemoglobin 8.9L, Hematocrit 30L, Mean Corpuscular Volume 82, Mean Corpuscular Hemoglobin 24L, Mean Corpuscular Hemoglobin Concent 30L, Red Cell Distribution Width 18.8H, Platelet Count 304, Mean Platelet Volume 11.2, Immature Granulocyte % (Auto) 3, Neutrophils (%) (Auto) 86H, Lymphocytes (%) (Auto) 6L, Monocytes (%) (Auto) 4, Eosinophils (%) (Auto) 2, Basophils (%) (Auto) 0, Neutrophils # (Auto) 12.7H, Lymphocytes # (Auto) 0.8L, Monocytes # (Auto) 0.6, Eosinophils # (Auto) 0.2, Basophils # (Auto) 0.1, Immature Granulocyte # (Auto) 0.4H, Sodium Level 140, Potassium Level 3.6, Chloride Level 106, Carbon Dioxide Level 22, Anion Gap 12, Blood Urea Nitrogen 14, Creatinine 0.68, Estimat Glomerular Filtration Rate 99, BUN/Creatinine Ratio 21, Glucose Level 163H, Calcium Level 8.4L, Corrected Calcium 9.7, Total Bilirubin 0.4, Aspartate Amino Transf (AST/SGOT) 31, Alanine Aminotransferase (ALT/SGPT) 44, Alkaline Phosphatase 94, Total Protein 5.7L, Albumin 2.4L 03/03/22 10:53: Glucometer 221H Microbiology 02/27/22 Blood Culture - Preliminary, Resulted No growth Laboratory Tests 03/02/22 06:50 03/03/22 07:45 A/P: Assessment: Transient hypotension - asymptomatic, resolved after medication adjustment of 02/28/22 S/P L BKA in late January 2022 at [facility] - subsequent wet gangrene necessitating L AKA by Dr. Perez on 02-23-22. Leukocytosis - managed by Dr Chappell PVD - reports PTCA bilat by Dr. Álvarez at [facility] in 2020 - reports stent x 2 to the L leg 02-03-22 (prior to BKA) by Dr. Sánchez at [facility] - reports PTCA to R leg 02-05-[address] Sánchez CAD - H/O CABG x 5 vessel [place] [address] Parry Chronic systolic CHF - maintained on diuretics ICM - last echo at [place] reported LVEF 40% (per nursing staff, date unknown) - maintained on Losartan Carotid dz - H/O L CEA in 2010 at [facility] - H/O chronic occlusion of the R carotid per pt report PAF - maintained on Amiodarone and Toprol - Previously on OAC with Eliquis (currently not taking) - H/O cardioversions in the past, last one >2 yrs ago HTN HLD DM 2 Anemia - undetermined etiology - management by Dr Chappell Plan: Transient hypotension - possible d/t vol depletion asymptomatic - reduce antihypertensive regimen and diuretics - BP improved H/O PAF - continue Amiodarone - OAC has been resumed CAD and carotid dz - continue ASA, low dose ICM - reduce Losartan H/O systolic CHF - clinically compensated - continue reduced dose of diuretics Leukocytosis - management per medical services (IV abx) Monitor lab closely We have not received records from [place] as of yet SHI GARZA MD FACP FAC CCDS Mar 03, 2022 11:55
[2022-03-03 20:29] VITALS: BP 143/60
[2022-03-04] MEDS: PIPERACILLIN SODIUM/TAZOBACTAM 4.5 GM in NS (IVPB) 100 ML IV SCH ×3 (02:57→18:54)
[2022-03-04] MEDS: LEVOTHYROXINE 100 MCG (LEVOTHROID) TAB PO SCH (06:20)
[2022-03-04] MEDS: inSUlin ASPART (NovoLOG) 1 UNIT/0.01 ML (CHARGE PER UNIT) SC SCH ×4 (06:20→20:41)
[2022-03-04 07:30] VITALS: BP 148/67
[2022-03-04] MEDS ORDERED: TROUGH ORDER-PHARMACY XX ONE (09:00)
[2022-03-04] MEDS: FUROSEMIDE 40 MG (LASIX) TAB PO SCH (09:20)
[2022-03-04] MEDS: KCL 10 MEQ TAB (MICRO K) PO SCH ×2 (09:20→20:41)
[2022-03-04] MEDS: PANTOPRAZOLE 40 MG (PROTONIX) TAB PO SCH (09:20)
[2022-03-04] MEDS: AMIODARONE 200 MG (CORDARONE) TAB PO SCH (09:20)
[2022-03-04] MEDS: DOCUSATE SODIUM 100 MG (COLACE) CAP PO SCH ×2 (09:20→20:40)
[2022-03-04] MEDS: APIXABAN 5 MG (ELIQUIS) TABLET PO SCH ×2 (09:21→20:41)
[2022-03-04] MEDS: SENNA W/DOCUSATE (SENOKOT S) TABLET PO SCH ×2 (09:21→20:41)
[2022-03-04] MEDS: LOSARTAN 25 MG (COZAAR) TAB PO SCH (09:21)
[2022-03-04] MEDS: HYPOCHLOROUS ACID/NaCl (VASHE) 250 ML IR PRN (09:22)
[2022-03-04] MEDS: polyethylene glycoL POWDER 17 GM (MIRALAX) PACK PO SCH ×2 (09:29→20:32)
[2022-03-04] MEDS: LACTOBACILLUS ACIDOPHILUS (PROBIOTIC) CAPSULE PO SCH ×3 (09:32→17:31)
[2022-03-04] MEDS ORDERED: VANCOMYCIN 1500 MG/NS 500 ML IVPB IV SCH ×2 (10:00)
[2022-03-04] MEDS: VANCOMYCIN 1 GM/NS 250 ML IVPB IV SCH ×4 (11:48→23:02)
--- NOTE | 2022-03-04 11:53 | Physical Therapy Daily Note ---
PT Daily Note-Current Subjective Pt in bed upon arrival and reports his (L) hip is hurting today but he just got a pain pill which is helping. Mental Status Patient Orientation: Person, Place, Time, Situation Transfers SCALE: Activities may be completed with or without assistive devices. 9-[place]qxgruzgpz-vrm[place]uk completes the activity by him/herself with no assistance from a helper. 5-Set-up or Clean-up Assistance-helper sets up or cleans up; patient completes activity. [place] assists only prior to or following the activity. 4-Supervision or Touching Assistance-helper provides verbal cues and/or touching/steadying and/or contact guard assistance as patient completes activity. Assistance may be provided throughout the activity or intermittently. 3-Partial/Moderate Assistance-helper does LESS THAN HALF the effort. [place] lifts, holds or supports trunk or limbs, but provides less than half the effort. 2-Substantial/Maximal Assistance-helper does MORE THAN HALF the effort. [place] lifts or holds trunk or limbs and provides more than half the effort. 1-Tkfvvjimu-jwxmhl does ALL the effort. Patient does none of the effort to complete the activity. Or, the assistance of 2 or more helpers is required for the patient to complete the activity. If activity was not attempted, code reason: 7-Patient Refused. 9-Not Applicable-not attempted and the patient did not perform the activity before the current illness, exacerbation or injury. 10-Not Attempted due to Environmental Limitations-(lack of equipment, weather restraints, etc.). 88-Not Attempted due to Medical Conditions or Safety Concerns. Weight Bearing Full Weight Bearing Exercises Supine Ex: Ankle pumps, Quad Set, Rolling, Glut sets, Heel Slides, Short Arc Quads, Straight leg raise, Hip abd/add Supine Reps: 20 Treatments Pt in bed upon departure and all needs met and call light nearby as PT departs Assessment Current Status: Fair Progress Pt required Batsheva for rolling. Pt used urinal for BR w/ assist from his . Pt required cues in order to perform exs correctly. PT Short Term Goals Short Term Goals Time Frame: Mar 03, 2022 Roll Left & Right: 4 Sit to lyin (Batsheva) Lying to sitting on side of be: 3 (Batsheva) Sit to stand: 3 (modA) Chair/rdd-wy-pyxib transfer: 3 (modA) PT Nursing Home Goals Mechanical Maintenance Supervisor Goals PT Mechanical Maintenance Supervisor Goals Time Frame: Mar 17, 2022 Roll Left & Right (QC): 6 Sit to Lying (QC): 4 (SBA) Lying-Sitting on Side/Bed(QC): 4 (SBA) Sit to Stand (QC): 3 (Batsheva) Chair/Xgl-ds-Fjqzp Xfer(QC): 3 (Batsheva) Toilet Transfer (QC): 3 (Batsheva) Car Transfer (QC): 3 (Batsheva) Does the Patient Walk: No and Walking Goal NOT indicated Walk 10 feet (QC): 88 Walk 50ft with 2 Turns (QC): 88 Walk 150 ft (QC): 88 Walking 10ft on Uneven Surface: 88 1 Step (curb) (QC): 88 4 Steps (QC): 88 12 Steps (QC): 88 Picking up an Object (QC): 88 Wheel 50 feet with 2 turns (QC: 6 Wheel 150 feet: 6 PT Plan Problem List Problem List: Activity Tolerance, Functional Strength Treatment/Plan Treatment Plan: Continue Plan of Care Treatment Plan: Bed Mobility, Education, Functional Activity Lalit, Functional Strength, Group Therapy, Safety, Therapeutic Exercise, Transfers Treatment Duration: Mar 17, 2022 Frequency: At least 5 of 7 days/Wk (IRF) Estimated Hrs Per Day: 1.5 hours per day Patient and/or Family Agrees t: Yes Safety Risks/Education Patient Education: Correct Positioning Teaching Recipient: Patient Teaching Methods: Discussion Response to Teaching: Return Demonstration Time/GCodes Time In: 0950 Time Out: 1005 Total Billed Treatment Time: 15 Total Billed Treatment 1, EX [facility] [employer] Mar 04, 2022 11:53
--- NOTE | 2022-03-04 14:53 | Progress Note - Cardiology ---
Cardiology SOAP Progress Note Subjective: No cp or palp or syncope or shortness of breath at rest Gen weakness and malaise No n/v/d Objective: I&O/Vital Signs 03/04/22 03/04/22 07:30 07:53 Temp 36.0 Pulse 90 Resp 18 B/P (MAP) 148/67 (94) Pulse Ox 94 O2 Delivery Nasal Cannula Nasal Cannula O2 Flow Rate 1.50 1.50 03/04/22 00:00 Intake Total 615 ml Balance 615 ml Constitutional: AAO x 3, well-developed, well-nourished Respiratory: No accessory muscle use, No respiratory distress; chest expansion is symmetric, chest is bilaterally symmetric, lungs clear to auscultation Cardiovascular: regular rate-rhythm; No JVD; S1 and S2 Gastrointestional: No tender; soft, round, audible bowel sounds Extremities: other (RLE without swelling; dressing to R AKA stump which is D/I, not removed) Neurologic/Psychiatric: oriented x 3, other (able to move all limbs) Skin: No rash on exposed areas, No ulcerations on exposed areas; other (abrasion to right leg) Results/Procedures: Labs Laboratory Tests 03/03/22 15:25: Glucometer 215H 03/03/22 20:28: Glucometer 220H 03/04/22 06:18: Glucometer 138H 03/04/22 09:00: Vancomycin Level Trough 11.0 03/04/22 10:49: Glucometer 205H Microbiology 02/27/22 Blood Culture - Preliminary, Resulted No growth Laboratory Tests 03/03/22 07:45 A/P: Assessment: Transient hypotension - asymptomatic, resolved after medication adjustment of 02/28/22 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 Perez on 02-23-22. Leukocytosis - managed by Dr Chappell PVJay - reports PTCA bilat by Dr. Álvarez at [facility] in 2020 - reports stent x 2 to the L leg 02-03-22 (prior to BKA) by Dr. Sánchez at [facility] - reports PTCA to R leg 02-05-[address] Sánchez CAD - H/O CABG x 5 vessel [place] [address] Parry Chronic systolic CHF - maintained on diuretics ICM - last echo at [place] reported LVEF 40% (per nursing staff, date unknown) - maintained on Losartan Carotid dz - H/O L CEA in 2010 at [facility] - H/O chronic occlusion of the R carotid per pt report PAF - maintained on Amiodarone and Toprol - Previously on OAC with Eliquis (currently not taking) - H/O cardioversions in the past, last one >2 yrs ago HTN HLD DM 2 Anemia - undetermined etiology - management by Dr Chappell Plan: Continue current regimen Monitor labs from time to time SHI GARZA MD FACP FAC CCDS Mar 04, 2022 14:53
[2022-03-04 20:11] VITALS: BP 144/83
[2022-03-05] MEDS: PIPERACILLIN SODIUM/TAZOBACTAM 4.5 GM in NS (IVPB) 100 ML IV SCH ×3 (03:44→18:47)
[2022-03-05] MEDS: LEVOTHYROXINE 100 MCG (LEVOTHROID) TAB PO SCH (06:37)
[2022-03-05] MEDS: inSUlin ASPART (NovoLOG) 1 UNIT/0.01 ML (CHARGE PER UNIT) SC SCH ×4 (06:37→20:43)
--- NOTE | 2022-03-05 06:58 | PM&R Progress Note ---
Subjective HPI/CC On Admission Date Seen by Provider: Mar 05, 2022 Time Seen by Provider: 13:00 Subjective/Events-last exam 03/04/2022: Late entry note inadvertently missed note Doing well IV abx maintained BM+ at bedside Melatonin gave him bad dreams 03/03/2022: Pt is doing well White blood cell count is 14 Hemoglobin is 8.9 Stump looks really good Overall doing much better 03/02/2022: Hemoglobin is 8.5 after one unit of blood yesterday White count is 16,000 Bowels moved a little bit today, will get aggressive with that Hep locking IV fluid 03/01/2022: Pt had some incontinence today Dressing was saturated Decrease BP medication for Dr. Kerns A little bit confused Will give one unit of blood today Maintain on broad spectrum antibiotics White count still elevated at 17 02/28/2022: Pt is doing well Mild hypotension not due to sepsis so will give 500 ccs bolus IV fluids 60 an hour Decrease procalcitonin Zosyn and Vancomycin maintained 02/27/2022: Pt is doing a lot better Sleeps all the time Fever and elevated white count with procalcitonin elevation prompting blood and urine cultures, chest x-ray, and empiric IV antibiotics PICC will be placed 02/26/2022: Patient settling in well Sugars lower so will hold Metformin No pain except hip and left shoulder Glucometer assessed at bedside No issues otherwise Review of Systems General: Fatigue, Malaise Objective Exam Vital Signs Vital Signs Date Time Temp Pulse Resp B/P (MAP) Pulse Ox O2 Delivery O2 Flow Rate FiO2 03/04/22 20:54 Nasal Cannula 1.50 03/04/22 20:11 36.8 85 20 144/83 (103) 97 Capillary Refill : General Appearance: No Apparent Distress, WD/WN HEENT: PERRL/EOMI, Normal ENT Inspection, Pharynx Normal Neck: Normal Inspection, Supple Respiratory: No Accessory Muscle Use, No Respiratory Distress Cardiovascular: Regular Rate, Rhythm, No Edema, No Gallop, No JVD, No Murmur, N ormal Peripheral Pulses Gastrointestinal: Normal Bowel Sounds, No Organomegaly, No Pulsatile Mass, Non Tender, Soft Back: Normal Inspection, No CVA Tenderness, No Vertebral Tenderness Extremity: Other (left AKA with dressing in place C/D/I) Neurologic/Psychiatric: Alert, Oriented x3 Skin: Normal Color, Warm/Dry Lymphatic: No Adenopathy Results/Procedures Lab Patient resulted labs reviewed. FIM Transfers Therapy Code Descriptions/Definitions Functional [place] Measure: 0=Not Assessed/NA 4=Minimal Assistance 1=Total Assistance 5=Supervision or Setup 2=Maximal Assistance 6=Modified [place] 3=Moderate Assistance 7=Complete IndependenceSCALE: Activities may be completed with or without assistive devices. 7-Ehxzrfsnma-tprfpog completes the activity by him/herself with no assistance from a helper. 5-Set-up or Clean-up Assistance-helper sets up or cleans up; patient completes activity. [place] assists only prior to or following the activity. 4-Supervision or Touching Assistance-helper provides verbal cues and/or touching/steadying and/or contact guard assistance as patient completes activity. Assistance may be provided throughout the activity or intermittently. 3-Partial/Moderate Assistance-helper does LESS THAN HALF the effort. [place] lifts, holds or supports trunk or limbs, but provides less than half the effort. 2-Substantial/Maximal Assistance-helper does MORE THAN HALF the effort. [place] lifts or holds trunk or limbs and provides more than half the effort. 1-Vzndbthav-cnqfwt does ALL the effort. Patient does none of the effort to complete the activity. Or, the assistance of 2 or more helpers is required for the patient to complete the activity. If activity was not attempted, code reason: 7-Patient Refused. 9-Not Applicable-not attempted and the patient did not perform the activity before the current illness, exacerbation or injury. 10-Not Attempted due to Environmental Limitations-(lack of equipment, weather restraints, etc.). 88-Not Attempted due to Medical Conditions or Safety Concerns. Roll Left to Right (QC): 3 Sit to Lying (QC): 4 Sit to Stand (QC): 3 Chair/Bti-lg-Irxwr Xfer(QC): 3 Car Transfer (QC): 2 Gait Training Does the Patient Walk?: No and Walking Goal NOT indicated Walk 10 feet (QC): 88 Walk 50 ft with 2 Turns(QC): 88 Walk 150 ft (QC): 88 Walking 10ft/uneven surface-QC: 88 Wheelchair Training Does the Pt Use a Wheelchair?: Yes Distance: 100'x2 Wheel 50 ft with 2 turns (QC): 4 Wheel 150 ft (QC): 4 Type of Wheelchair: Manual Stair Training 1 Step (curb) (QC): 88 4 Steps (QC): 88 12 Steps (QC): 88 Balance Picking up an Object (QC): 88 ADL-Treatment Eating (QC): 5 (Assistance opening containers) Oral Hygiene (QC): 5 (set up at sink) Shower/Bathe Self (QC): 1 (Assist x2 with sponge bath to help with bed mobility and wiping) Upper Body Dressing (QC): 3 (Mod A. Assist required overhead and slight assistance down trunk.) Lower Body Dressing (QC): 1 (Assist x2) On/Off Footwear (QC): 1 Toileting Hygiene (QC): 1 (Assist x2 for bowel movement. 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 Fall 02/21/22 resulting in left shoulder injury causing further debility and limiting ADL/independence Severe PVD PAF OAC HTN HLP DM Hypothyroidism Previous hypoglycemia required holding metformin and glimepiride but now on lo wer dose Constipation resolved Poor venous access requiring PICC 02/27/22 Anemia post op requiring transfusion 03/01/22 Plan: PT OT w/c mobility Home meds 02/26/2022: Pain control Monitor sugar Hold Metformin 02/27/22: Empiric broad spectrum abx Hold Metformin and OAC PICC line 02/28/2022: IV abx Monitor closely 03/01/2022: Transfuse Broad spectrum abx 03/02/2022: Monitor hgb Broad spectrum abx 03/03/2022: IV abx Monitor hgb 03/04/2022: DC Melatonin IV abx (1) S/P AKA (above knee amputation) (2) Gangrene XIOMARA DICKENS DO Mar 05, 2022 06:58
--- NOTE | 2022-03-05 06:59 | PM&R Progress Note ---
Subjective HPI/CC On Admission Date Seen by Provider: Mar 05, 2022 Time Seen by Provider: 13:00 Subjective/Events-last exam 03/05/2022: Patient doing well No pain reported Slept well last night No falls 03/04/2022: Late entry note inadvertently missed note Doing well IV abx maintained BM+ at bedside Melatonin gave him bad dreams 03/03/2022: Pt is doing well White blood cell count is 14 Hemoglobin is 8.9 Stump looks really good Overall doing much better 03/02/2022: Hemoglobin is 8.5 after one unit of blood yesterday White count is 16,000 Bowels moved a little bit today, will get aggressive with that Hep locking IV fluid 03/01/2022: Pt had some incontinence today Dressing was saturated Decrease BP medication for Dr. Kerns A little bit confused Will give one unit of blood today Maintain on broad spectrum antibiotics White count still elevated at 17 02/28/2022: Pt is doing well Mild hypotension not due to sepsis so will give 500 ccs bolus IV fluids 60 an hour Decrease procalcitonin Zosyn and Vancomycin maintained 02/27/2022: Pt is doing a lot better Sleeps all the time Fever and elevated white count with procalcitonin elevation prompting blood and urine cultures, chest x-ray, and empiric IV antibiotics PICC will be placed 02/26/2022: Patient settling in well Sugars lower so will hold Metformin No pain except hip and left shoulder Glucometer assessed at bedside No issues otherwise Review of Systems General: Fatigue, Malaise Objective Exam Vital Signs Vital Signs Date Time Temp Pulse Resp B/P (MAP) Pulse Ox O2 Delivery O2 Flow Rate FiO2 03/05/22 08:13 84 20 125/75 (92) 94 Nasal Cannula 1.50 03/05/22 07:30 36.0 Capillary Refill : General Appearance: No Apparent Distress, WD/WN HEENT: PERRL/EOMI, Normal ENT Inspection, Pharynx Normal Neck: Normal Inspection, Supple Respiratory: No Accessory Muscle Use, No Respiratory Distress Cardiovascular: Regular Rate, Rhythm, No Edema, No Gallop, No JVD, No Murmur, Normal Peripheral Pulses Gastrointestinal: Normal Bowel Sounds, No Organomegaly, No Pulsatile Mass, Non Tender, Soft Back: Normal Inspection, No CVA Tenderness, No Vertebral Tenderness Extremity: Other (left AKA with dressing in place C/D/I) Neurologic/Psychiatric: Alert, Oriented x3 Skin: Normal Color, Warm/Dry Lymphatic: No Adenopathy Results/Procedures Lab Patient resulted labs reviewed. FIM Transfers Therapy Code Descriptions/Definitions Functional [place] Measure: 0=Not Assessed/NA 4=Minimal Assistance 1=Total Assistance 5=Supervision or Setup 2=Maximal Assistance 6=Modified [place] 3=Moderate Assistance 7=Complete IndependenceSCALE: Activities may be completed with or without assistive devices. 7-Xsfsrfshzk-mdbuyzg completes the activity by him/herself with no assistance from a helper. 5-Set-up or Clean-up Assistance-helper sets up or cleans up; patient completes activity. [place] assists only prior to or following the activity. 4-Supervision or Touching Assistance-helper provides verbal cues and/or phu augustina/steadying and/or contact guard assistance as patient completes activity. Assistance may be provided throughout the activity or intermittently. 3-Partial/Moderate Assistance-helper does LESS THAN HALF the effort. [place] lifts, holds or supports trunk or limbs, but provides less than half the effort. 2-Substantial/Maximal Assistance-helper does MORE THAN HALF the effort. [place] lifts or holds trunk or limbs and provides more than half the effort. 2-Xjkyiavmq-mvijti does ALL the effort. Patient does none of the effort to complete the activity. Or, the assistance of 2 or more helpers is required for the patient to complete the activity. If activity was not attempted, code reason: 7-Patient Refused. 9-Not Applicable-not attempted and the patient did not perform the activity before the current illness, exacerbation or injury. 10-Not Attempted due to Environmental Limitations-(lack of equipment, weather restraints, etc.). 88-Not Attempted due to Medical Conditions or Safety Concerns. Roll Left to Right (QC): 3 Sit to Lying (QC): 4 Sit to Stand (QC): 3 Chair/Ptj-mn-Taidg Xfer(QC): 3 Car Transfer (QC): 2 Gait Training Does the Patient Walk?: No and Walking Goal NOT indicated Walk 10 feet (QC): 88 Walk 50 ft with 2 Turns(QC): 88 Walk 150 ft (QC): 88 Walking 10ft/uneven surface-QC: 88 Wheelchair Training Does the Pt Use a Wheelchair?: Yes Distance: 100'x2 Wheel 50 ft with 2 turns (QC): 4 Wheel 150 ft (QC): 4 Type of Wheelchair: Manual Stair Training 1 Step (curb) (QC): 88 4 Steps (QC): 88 12 Steps (QC): 88 Balance Picking up an Object (QC): 88 ADL-Treatment Eating (QC): 5 (Assistance opening containers) Oral Hygiene (QC): 5 (set up at sink) Shower/Bathe Self (QC): 1 (Assist x2 with sponge bath to help with bed mobility and wiping) Upper Body Dressing (QC): 3 (Mod A. Assist required overhead and slight assistance down trunk.) Lower Body Dressing (QC): 1 (Assist x2) On/Off Footwear (QC): 1 Toileting Hygiene (QC): 1 (Assist x2 for bowel movement. 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 Fall 02/21/22 resulting in left shoulder injury causing further debility and limiting ADL/independence Severe PVD PAF OAC HTN HLP DM Hypothyroidism Previous hypoglycemia required holding metformin and glimepiride but now on lower dose Constipation resolved Poor venous access requiring PICC 02/27/22 Anemia post op requiring transfusion 03/01/22 Plan: PT OT w/c mobility Home meds 02/26/2022: Pain control Monitor sugar Hold Metformin 02/27/22: Empiric broad spectrum abx Hold Metformin and OAC PICC line 02/28/2022: IV abx Monitor closely 03/01/2022: Transfuse Broad spectrum abx 03/02/2022: Monitor hgb Broad spectrum abx 03/03/2022: IV abx Monitor hgb 03/04/2022: DC Melatonin IV abx 03/05/2022: Monitor closely Check labs in am (1) S/P AKA (above knee amputation) (2) Gangrene XIOMARA DICKENS DO Mar 05, 2022 06:59
[2022-03-05 07:30] VITALS: BP 196/82
[2022-03-05] MEDS: PANTOPRAZOLE 40 MG (PROTONIX) TAB PO SCH (07:53)
[2022-03-05] MEDS: LOSARTAN 25 MG (COZAAR) TAB PO SCH (07:53)
[2022-03-05] MEDS: LACTOBACILLUS ACIDOPHILUS (PROBIOTIC) CAPSULE PO SCH ×3 (07:53→18:19)
[2022-03-05] MEDS: APIXABAN 5 MG (ELIQUIS) TABLET PO SCH ×2 (07:53→20:43)
[2022-03-05] MEDS: DOCUSATE SODIUM 100 MG (COLACE) CAP PO SCH ×2 (07:54→21:00)
[2022-03-05] MEDS: AMIODARONE 200 MG (CORDARONE) TAB PO SCH (07:54)
[2022-03-05] MEDS: KCL 10 MEQ TAB (MICRO K) PO SCH ×2 (07:54→20:43)
[2022-03-05] MEDS: FUROSEMIDE 40 MG (LASIX) TAB PO SCH (07:54)
[2022-03-05] MEDS: SENNA W/DOCUSATE (SENOKOT S) TABLET PO SCH ×2 (07:54→21:00)
[2022-03-05] MEDS: polyethylene glycoL POWDER 17 GM (MIRALAX) PACK PO SCH ×2 (07:55→21:00)
[2022-03-05 08:00] VITALS: BP 125/75
[2022-03-05 08:13] VITALS: BP 125/75
[2022-03-05] MEDS: VANCOMYCIN 1 GM/NS 250 ML IVPB IV SCH ×2 (10:54)
--- NOTE | 2022-03-05 14:59 | Progress Note - Cardiology ---
Cardiology SOAP Progress Note Subjective: No cp or palp or syncope No n/v/d No shortness of breath at rest Gen weakness present Objective: I&O/Vital Signs 03/05/22 03/05/22 03/05/22 07:30 08:00 08:13 Temp 36.0 Pulse 94 84 Resp 18 20 B/P (MAP) 196/82 (120) 125/75 (92) 125/75 (92) Pulse Ox 94 94 O2 Delivery Nasal Cannula Nasal Cannula O2 Flow Rate 1.50 1.50 03/05/22 00:00 Intake Total 100 ml Balance 100 ml Constitutional: AAO x 3, well-developed, well-nourished Respiratory: No accessory muscle use, No respiratory distress; chest expansion is symmetric, chest is bilaterally symmetric, lungs clear to auscultation Cardiovascular: regular rate-rhythm; No JVD; S1 and S2 Gastrointestional: No tender; soft, round, audible bowel sounds Extremities: other (RLE without swelling; dressing to R AKA stump which is D/I, not removed) Neurologic/Psychiatric: oriented x 3, other (able to move all limbs) Skin: No rash on exposed areas, No ulcerations on exposed areas; other (abrasion to right leg) Results/Procedures: Labs Laboratory Tests 03/04/22 15:17: Glucometer 187H 03/04/22 20:10: Glucometer 205H 03/05/22 06:23: Glucometer 165H 03/05/22 11:19: Glucometer 239H Microbiology 02/27/22 Blood Culture - Final, Complete No growth A/P: Assessment: Transient hypotension - asymptomatic, resolved after medication adjustment of 02/28/22 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 Perez on 02-23-22. Leukocytosis - managed by Dr Chappell PVD - reports PTCA bilat by Dr. Álvarez at [facility] in 2020 - reports stent x 2 to the L leg 02-03-22 (prior to BKA) by Dr. Sánchez at [facility] - reports PTCA to R leg 02-05-[address] Sánchez CAD - H/O CABG x 5 vessel [place] [address] Parry Chronic systolic CHF - maintained on diuretics ICM - last echo at [place] reported LVEF 40% (per nursing staff, date unknown) - maintained on Losartan Carotid dz - H/O L CEA in 2010 at [facility] - H/O chronic occlusion of the R carotid per pt report PAF - maintained on Amiodarone and Toprol - Previously on OAC with Eliquis (currently not taking) - H/O cardioversions in the past, last one >2 yrs ago HTN HLD DM 2 Anemia - undetermined etiology - management by Dr Chappell Plan: Continue current regimen Monitor labs from time to time SHI GARZA MD FACP FAC CCDS Mar 05, 2022 14:59
[2022-03-05] MEDS ORDERED: TROUGH ORDER-PHARMACY XX NR (16:00)
[2022-03-05 19:49] VITALS: BP 151/67
[2022-03-06] MEDS: PIPERACILLIN SODIUM/TAZOBACTAM 4.5 GM in NS (IVPB) 100 ML IV SCH (03:22)
[2022-03-06 05:20] LABS: BASOPHILS # (AUTO) 0.1 10^3/uL (0.0-0.1); BASOPHILS % (AUTO) 0 % (0-10); EOSINOPHILS # (AUTO) 0.1 10^3/uL (0.0-0.3); EOSINOPHILS % (AUTO) 0 % (0-10); HEMATOCRIT 35 % (40-54); HEMOGLOBIN 10.2 g/dL (13.3-17.7); LYMPHOCYTES # (AUTO) 0.8 10^3/uL (1.0-4.0); LYMPHOCYTES % (AUTO) 4 % (12-44); MEAN CORPUSCULAR HEMOGLOBIN 24 pg (25-34); MEAN CORPUSCULAR HGB CONC 29 g/dL (32-36); MEAN CORPUSCULAR VOLUME 84 fL (80-99); MEAN PLATELET VOLUME 10.6 fL (9.0-12.2); MONOCYTES # (AUTO) 0.6 10^3/uL (0.0-1.0); MONOCYTES % (AUTO) 3 % (0-12); NEUTROPHILS # (AUTO) 18.2 10^3/uL (1.8-7.8); NEUTROPHILS % (AUTO) 90 % (42-75); PLATELET COUNT 364 10^3/uL (130-400); WHITE BLOOD COUNT 20.1 10^3/uL (4.3-11.0)
[2022-03-06 05:35] LABS: ALBUMIN 2.9 GM/DL (3.2-4.5); POTASSIUM 3.9 MMOL/L (3.6-5.0)
[2022-03-06 05:37] LABS: CALCIUM 9.2 MG/DL (8.5-10.1)
[2022-03-06 05:38] LABS: TOTAL PROTEIN 6.6 GM/DL (6.4-8.2)
[2022-03-06 05:40] LABS: BILIRUBIN,TOTAL 0.4 MG/DL (0.1-1.0)
[2022-03-06 05:41] LABS: CREATININE SERUM 0.67 MG/DL (0.60-1.30)
[2022-03-06] MEDS: LEVOTHYROXINE 100 MCG (LEVOTHROID) TAB PO SCH (06:08)
[2022-03-06] MEDS: inSUlin ASPART (NovoLOG) 1 UNIT/0.01 ML (CHARGE PER UNIT) SC SCH ×4 (06:08→22:05)
--- NOTE | 2022-03-06 06:44 | PM&R Progress Note ---
Subjective HPI/CC On Admission Date Seen by Provider: Mar 06, 2022 Time Seen by Provider: 09:00 Subjective/Events-last exam 03/06/2022: Patient having difficulty with shortness of breath and tachypnea Oxygen placed due to hypoxia Septic work-up normal but it appears he has congestive heart failure and volume overload Cardiology consulted after he gave him Lasix 40 mg IV Supportive care will continue 03/05/2022: Patient doing well No pain reported Slept well last night No falls 03/04/2022: Late entry note inadvertently missed note Doing well IV abx maintained BM+ at bedside Melatonin gave him bad dreams 03/03/2022: Pt is doing well White blood cell count is 14 Hemoglobin is 8.9 Stump looks really good Overall doing much better 03/02/2022: Hemoglobin is 8.5 after one unit of blood yesterday White count is 16,000 Bowels moved a little bit today, will get aggressive with that Hep locking IV fluid 03/01/2022: Pt had some incontinence today Dressing was saturated Decrease BP medication for Dr. Kerns A little bit confused Will give one unit of blood today Maintain on broad spectrum antibiotics White count still elevated at 17 02/28/2022: Pt is doing well Mild hypotension not due to sepsis so will give 500 ccs bolus IV fluids 60 an hour Decrease procalcitonin Zosyn and Vancomycin maintained 02/27/2022: Pt is doing a lot better Sleeps all the time Fever and elevated white count with procalcitonin elevation prompting blood and urine cultures, chest x-ray, and empiric IV antibiotics PICC will be placed 02/26/2022: Patient settling in well Sugars lower so will hold Metformin No pain except hip and left shoulder Glucometer assessed at bedside No issues otherwise Review of Systems General: Fatigue, Malaise Focused Exam Lactate Level 03/06/22 08:55: Lactic Acid Level 1.28 Objective Exam Vital Signs Vital Signs Date Time Temp Pulse Resp B/P (MAP) Pulse Ox O2 Delivery O2 Flow Rate FiO2 03/07/22 07:26 36.5 89 18 162/72 (102) 93 Nasal Cannula 1.00 Capillary Refill : General Appearance: No Apparent Distress, WD/WN HEENT: PERRL/EOMI, Normal ENT Inspection, Pharynx Normal Neck: Normal Inspection, Supple Respiratory: No Accessory Muscle Use, No Respiratory Distress Cardiovascular: Regular Rate, Rhythm, No Edema, No Gallop, No JVD, No Murmur, Normal Peripheral Pulses Gastrointestinal: Normal Bowel Sounds, No Organomegaly, No Pulsatile Mass, Non Tender, Soft Back: Normal Inspection, No CVA Tenderness, No Vertebral Tenderness Extremity: Other (left AKA with dressing in place C/D/I) Neurologic/Psychiatric: Alert, Oriented x3 Skin: Normal Color, Warm/Dry Lymphatic: No Adenopathy Results/Procedures Lab Laboratory Tests 03/07/22 05:28 Patient resulted labs reviewed. FIM Transfers Therapy Code Descriptions/Definitions Functional [place] Measure: 0=Not Assessed/NA 4=Minimal Assistance 1=Total Assistance 5=Supervision or Setup 2=Maximal Assistance 6=Modified [place] 3=Moderate Assistance 7=Complete IndependenceSCALE: Activities may be completed with or without assistive devices. 1-Rogevvgfwc-mybjotb completes the activity by him/herself with no assistance from a helper. 5-Set-up or Clean-up Assistance-helper sets up or cleans up; patient completes activity. [place] assists only prior to or following the activity. 4-Supervision or Touching Assistance-helper provides verbal cues and/or touching/steadying and/or contact guard assistance as patient completes activity. Assistance may be provided throughout the activity or intermittently. 3-Partial/Moderate Assistance-helper does LESS THAN HALF the effort. [place] lifts, holds or supports trunk or limbs, but provides less than half the effort. 2-Substantial/Maximal Assistance-helper does MORE THAN HALF the effort. [place] lifts or holds trunk or limbs and provides more than half the effort. 8-Adhfvjngx-gsepex does ALL the effort. Patient does none of the effort to complete the activity. Or, the assistance of 2 or more helpers is required for the patient to complete the activity. If activity was not attempted, code reason: 7-Patient Refused. 9-Not Applicable-not attempted and the patient did not perform the activity before the current illness, exacerbation or injury. 10-Not Attempted due to Environmental Limitations-(lack of equipment, weather restraints, etc.). 88-Not Attempted due to Medical Conditions or Safety Concerns. Roll Left to Right (QC): 3 Sit to Lying (QC): 4 Sit to Stand (QC): 3 Chair/Zfp-vm-Ycukw Xfer(QC): 3 Car Transfer (QC): 2 Gait Training Does the Patient Walk?: No and Walking Goal NOT indicated Walk 10 feet (QC): 88 Walk 50 ft with 2 Turns(QC): 88 Walk 150 ft (QC): 88 Walking 10ft/uneven surface-QC: 88 Wheelchair Training Does the Pt Use a Wheelchair?: Yes Distance: 100'x2 Wheel 50 ft with 2 turns (QC): 4 Wheel 150 ft (QC): 4 Type of Wheelchair: Manual Stair Training 1 Step (curb) (QC): 88 4 Steps (QC): 88 12 Steps (QC): 88 Balance Picking up an Object (QC): 88 ADL-Treatment Eating (QC): 5 (Assistance opening containers) Oral Hygiene (QC): 5 (set up at sink) Shower/Bathe Self (QC): 1 (Assist x2 with sponge bath to help with bed mobility and wiping) Upper Body Dressing (QC): 3 (Mod A. Assist required overhead and slight assistance down trunk.) Lower Body Dressing (QC): 1 (Assist x2) On/Off Footwear (QC): 1 Toileting Hygiene (QC): 1 (Assist x2 for bowel movement. 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 Fall 02/21/22 resulting in left shoulder injury causing further debility and limiting ADL/independence Severe PVD PAF OAC HTN HLP DM Hypothyroidism Previous hypoglycemia required holding metformin and glimepiride but now on lower dose Constipation resolved Poor venous access requiring PICC 02/27/22 Anemia post op requiring transfusion 03/01/22 Volume overload CHF requiring IV Lasix 03/06/2022 Plan: PT OT w/c mobility Home meds 02/26/2022: Pain control Monitor sugar Hold Metformin 02/27/22: Empiric broad spectrum abx Hold Metformin and OAC PICC line 02/28/2022: IV abx Monitor closely 03/01/2022: Transfuse Broad spectrum abx 03/02/2022: Monitor hgb Broad spectrum abx 03/03/2022: IV abx Monitor hgb 03/04/2022: DC Melatonin IV abx 03/05/2022: Monitor closely Check labs in am 03/06/2022: IV Lasix Oxygen (1) S/P AKA (above knee amputation) (2) Gangrene XIOMARA DICKENS DO Mar 06, 2022 06:44
[2022-03-06] MEDS ORDERED: GLIMEPIRIDE 1 MG (AMARYL) TAB PO ONE (06:45)
[2022-03-06 07:36] VITALS: BP 172/78
--- NOTE | 2022-03-06 08:41 | Diagnostic Imaging Report ---
INDICATION: Hypoxia, increasing oxygen demands COMPARISON: 02/27/2022 TECHNIQUE: Single radiograph of the chest dated 03/06/2022. FINDINGS: Postsurgical changes of a CABG are again identified. Right-sided PICC line is again seen, appearing stable. The cardiac silhouette is enlarged. Central pulmonary vascular congestion is present. Developing extensive mixed interstitial and airspace opacities throughout the bilateral lungs with associated small pleural effusions. No pneumothorax. No acute osseous abnormality. IMPRESSION: Developing extensive bilateral pulmonary opacities, favored to relate to edema given cardiomegaly and increasing pulmonary vascular congestion. Superimposed infiltrate not excluded. Recommend continued radiographic followup. Dictated by: Dictated on workstation # [id number]
[2022-03-06] MEDS ORDERED: FUROSEMIDE 40 MG/4 ML INJ (LASIX) IVP ONE (08:45)
[2022-03-06 08:55] LABS: ABG BASE EXCESS 6.6 MMOL/L (-2.5-2.5); ABG OXYGEN SATURATION 96 % (94-100); ABG PCO2 52 MMHG (35-45); ABG PO2 79 MMHG (79-93)
[2022-03-06 08:57] LABS: ALLENS TEST YES-POS; INSPIRED O2 3; PATIENT TEMP 37; VENTILATOR NO
[2022-03-06] MEDS: polyethylene glycoL POWDER 17 GM (MIRALAX) PACK PO SCH ×2 (09:00→22:04)
[2022-03-06] MEDS: SENNA W/DOCUSATE (SENOKOT S) TABLET PO SCH ×2 (09:00→22:04)
[2022-03-06] MEDS: DOCUSATE SODIUM 100 MG (COLACE) CAP PO SCH ×2 (09:00→22:04)
[2022-03-06] MEDS: LOSARTAN 25 MG (COZAAR) TAB PO SCH (09:08)
[2022-03-06] MEDS: KCL 10 MEQ TAB (MICRO K) PO SCH ×2 (09:08→22:02)
[2022-03-06] MEDS: AMIODARONE 200 MG (CORDARONE) TAB PO SCH (09:09)
[2022-03-06] MEDS: FUROSEMIDE 40 MG (LASIX) TAB PO SCH (09:09)
[2022-03-06] MEDS: PANTOPRAZOLE 40 MG (PROTONIX) TAB PO SCH (09:09)
[2022-03-06] MEDS: APIXABAN 5 MG (ELIQUIS) TABLET PO SCH ×2 (09:09→22:02)
[2022-03-06] MEDS: LACTOBACILLUS ACIDOPHILUS (PROBIOTIC) CAPSULE PO SCH ×3 (09:09→17:10)
--- NOTE | 2022-03-06 11:38 | Progress Note - Cardiology ---
Cardiology SOAP Progress Note Subjective: Lying in bed Dyspneic at this time No c/o CP Nursing reports worsening dyspnea starting this morning Objective: I&O/Vital Signs 03/07/22 03/07/22 03/07/22 07:26 08:45 09:00 Temp 36.5 Pulse 89 Resp 18 B/P (MAP) 162/72 (102) Pulse Ox 93 94 93 O2 Delivery Nasal Cannula Nasal Cannula Nasal Cannula O2 Flow Rate 1.00 1.50 1.00 03/07/22 00:00 Intake Total 1200 ml Output Total 2950 ml Balance -1750 ml Constitutional: AAO x 3, well-developed, well-nourished Respiratory: No accessory muscle use, No respiratory distress; chest expansion is symmetric, chest is bilaterally symmetric, other (diminished lower lobes) Cardiovascular: regular rate-rhythm; No JVD; S1 and S2 Gastrointestional: No tender; soft, round, audible bowel sounds Extremities: other (RLE without swelling; dressing to R AKA stump which is D/I, not removed) Neurologic/Psychiatric: grossly intact (moves all extremities) Skin: No rash on exposed areas, No ulcerations on exposed areas; other (abrasion to right leg) Results/Procedures: Labs Laboratory Tests 03/06/22 15:22: Glucometer 185H 03/06/22 20:10: Glucometer 218H 03/07/22 05:28: White Blood Count 12.9H, Red Blood Count 3.90L, Hemoglobin 9.5L, Hematocrit 32L, Mean Corpuscular Volume 83, Mean Corpuscular Hemoglobin 24L, Mean Corpuscular Hemoglobin Concent 29L, Red Cell Distribution Width 18.6H, Platelet Count 348, Mean Platelet Volume 10.4, Sodium Level 143, Potassium Level 3.6, Chloride Level 101, Carbon Dioxide Level 29, Anion Gap 13, Blood Urea Nitrogen 9, Creatinine 0.67, Estimat Glomerular Filtration Rate 100, BUN/Creatinine Ratio 13, Glucose Level 188H, Calcium Level 9.1, Magnesium Level 1.6 03/07/22 10:54: Glucometer 199H Microbiology 03/06/22 Gram Stain - Final, Resulted 03/06/22 Wound Culture - Preliminary, Resulted Gram Negative Michel 02/27/22 Blood Culture - Final, Complete No growth Procedures NAME: MERCEDES STROUD Annabella [facility] REC#: [id number] PT STATUS: ADM IN : 1950 PHYSICIAN: XIOMARA DICKENS DO ADMIT DATE: 02/24/22/[facility] Signed Date of Exam:03/06/22 CHEST 1 VIEW, AP/PA ONLY INDICATION: Hypoxia, increasing oxygen demands COMPARISON: 02/27/2022 TECHNIQUE: Single radiograph of the chest dated 03/06/2022. FINDINGS: Postsurgical changes of a CABG are again identified. Right-sided PICC line is again seen, appearing stable. The cardiac silhouette is enlarged. Central pulmonary vascular congestion is present. Developing extensive mixed interstitial and airspace opacities throughout the bilateral lungs with associated small pleural effusions. No pneumothorax. No acute osseous abnormality. IMPRESSION: Developing extensive bilateral pulmonary opacities, favored to relate to edema given cardiomegaly and increasing pulmonary vascular congestion. Superimposed infiltrate not excluded. Recommend continued radiographic followup. 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 Perez on 02-23-22. Leukocytosis- worsening - managed by Dr Dickens PVD - reports PTCA bilat by Dr. Álvarez at [facility] in 2020 - reports stent x 2 to the L leg 02-03-22 (prior to BKA) by Dr. Sánchez at [facility] - reports PTCA to R leg 02-05-[address] Sánchez CAD - H/O CABG x 5 vessel [place] [address] Parry ICM - last echo at [place] reported LVEF 40% (per nursing staff, date unknown) - maintained on Losartan Carotid dz - H/O L CEA in 2010 at [facility] - H/O chronic occlusion of the R carotid per pt report PAF - maintained on Amiodarone and Toprol - Previously on OAC with Eliquis (currently not taking) - H/O cardioversions in the past, last one >2 yrs ago HTN HLD DM 2 Anemia - undetermined etiology - management by Dr Dickens Plan: Acute on chronic systolic CHF - treat with IV diuretics - Echocardiogram today - replace electrolytes as indicated Management of worsening leukocytosis is per medical services DANIEL BORRERO Mar 06, 2022 11:38
--- NOTE | 2022-03-06 11:58 | Occ Therapy Progress Note ---
Therapy Progress Note Pt on hold per nrsg due to decline in medical status. Will continue to monitor pt and will see pt when nrsg reports that pt is stable to participate in skilled therapy. KATERIN MONTENEGRO Mar 06, 2022 11:58
--- NOTE | 2022-03-06 14:22 | Physical Therapy Daily Note ---
PT Daily Note-Current Subjective Patient in bed pre tx, agrees to PT, has unrated pain in left residual limb. Will be co-treating with OT due to poor patient mobility, strength, endurance, severe debility, coordinate UE and LE with activity, safety and reduce risk of falls. Appearance Patient in recliner post tx with nurse call, phone, tray, all needs met. Mental Status Patient Orientation: Person, Place, Situation Transfers SCALE: Activities may be completed with or without assistive devices. 0-Izqbbuwmxu-xjvpife completes the activity by him/herself with no assistance from a helper. 5-Set-up or Clean-up Assistance-helper sets up or cleans up; patient completes activity. [place] assists only prior to or following the activity. 4-Supervision or Touching Assistance-helper provides verbal cues and/or touching/steadying and/or contact guard assistance as patient completes activity. Assistance may be provided throughout the activity or intermittently. 3-Partial/Moderate Assistance-helper does LESS THAN HALF the effort. [place] lifts, holds or supports trunk or limbs, but provides less than half the effort. 2-Substantial/Maximal Assistance-helper does MORE THAN HALF the effort. [place] lifts or holds trunk or limbs and provides more than half the effort. 9-Vthtsnrcg-duocar does ALL the effort. Patient does none of the effort to complete the activity. Or, the assistance of 2 or more helpers is required for the patient to complete the activity. If activity was not attempted, code reason: 7-Patient Refused. 9-Not Applicable-not attempted and the patient did not perform the activity before the current illness, exacerbation or injury. 10-Not Attempted due to Environmental Limitations-(lack of equipment, weather restraints, etc.). 88-Not Attempted due to Medical Conditions or Safety Concerns. Roll Left & Right (QC): 4 Sit to Lying (QC): 4 Lying to Sitting/Side of Bed(Q: 3 Sit to Stand (QC): 2 Chair/Wzd-nv-Dmpks Xfer(QC): 2 Stand pivot transfer to from bed with max assist using walker. After the first stand pivot transfer patient could not stand using the walker and transfer and had to perform stand pivot transfers with therapist in front with max assi st. Weight Bearing Full Weight Bearing Wheelchair Training Does the Pt Use a Wheelchair?: Yes Wheel 50 ft with 2 turns (QC): 4 Wheel 150 ft (QC): 4 Type of Wheelchair: Manual 300', 120', SBA, very slow, needs many rest breaks Exercises Seated Therapy Exercises: Ankle pumps (RLE), Long arc quads (RLE), Hip flexion, Hip abd/add Seated Reps: 20 also performed prone hip stretch for 5 min, his bandage fell off and therapists reapply it with new bandaging. Treatments PT performed bed mobility and transfers, stretching, WC mobility, LE strengthening, OT performed UE exercise, UE positioning and safety during activity. Assessment Current Status: Poor Progress weaker RLE with standing and transfers PT Short Term Goals Short Term Goals Time Frame: Mar 03, 2022 Roll Left & Right: 4 Sit to lyin (Batsheva) Lying to sitting on side of be: 3 (Batsheva) Sit to stand: 3 (modA) Chair/amf-nv-gecsz transfer: 3 (modA) PT Manager Study Goals Manager Study Goals PT Senior Care Goals Time Frame: Mar 17, 2022 Roll Left & Right (QC): 6 Sit to Lying (QC): 4 (SBA) Lying-Sitting on Side/Bed(QC): 4 (SBA) Sit to Stand (QC): 3 (Batsheva) Chair/Zmi-oq-Bfffg Xfer(QC): 3 (Batsheva) Toilet Transfer (QC): 3 (Batsheva) Car Transfer (QC): 3 (Batsheva) Does the Patient Walk: No and Walking Goal NOT indicated Walk 10 feet (QC): 88 Walk 50ft with 2 Turns (QC): 88 Walk 150 ft (QC): 88 Walking 10ft on Uneven Surface: 88 1 Step (curb) (QC): 88 4 Steps (QC): 88 12 Steps (QC): 88 Picking up an Object (QC): 88 Wheel 50 feet with 2 turns (QC: 6 Wheel 150 feet: 6 PT Plan Problem List Problem List: Activity Tolerance, Functional Strength, Safety, Balance, Gait, Transfer, Bed Mobility, ROM Treatment/Plan Treatment Plan: Continue Plan of Care Treatment Plan: Bed Mobility, Education, Functional Activity Lalit, Functional Strength, Group Therapy, Safety, Therapeutic Exercise, Transfers Treatment Duration: Mar 17, 2022 Frequency: At least 5 of 7 days/Wk (IRF) Estimated Hrs Per Day: 1.5 hours per day Patient and/or Family Agrees t: Yes Safety Risks/Education Patient Education: Transfer Techniques, Correct Positioning, W/C Management, Safety Issues Teaching Recipient: Patient Teaching Methods: Demonstration, Discussion Response to Teaching: Reinforcement Needed Time/GCodes Time In: 1300 Time Out: 1430 Total Billed Treatment Time: 90 Total Billed Treatment 1 visit EX 30' FA 60' co-treated with OT from [id number] JESSICA FOX PT Mar 06, 2022 14:22
--- NOTE | 2022-03-06 14:37 | Occupational Ther Daily Note ---
OT Current Status-Daily Note Subjective Pt alert, sitting on EOB. Pt agrees to therapy. Nrsg okayed RODRIGUEZ to work with pt. OT/PT co-treat [id number], skills of 2 clinicians required to decrease fall risk, monitor medical status and increase activity tolerance. PT focusing on transfers, w/c mobility and strengthening while OT focusing on B UE stren gthening, ADLs and functional mobility. Mental Status/Objective Patient Orientation: Person, Place, Time, Situation Attachments: IV ADL-Treatment Pt independent with eating. Pt able to go from supine to EOB using bed rails and HOB elevated by self. Therapy Code Descriptions/Definitions Functional [place] Measure: 0=Not Assessed/NA 4=Minimal Assistance 1=Total Assistance 5=Supervision or Setup 2=Maximal Assistance 6=Modified [place] 3=Moderate Assistance 7=Complete IndependenceSCALE: Activities may be completed with or without assistive devices. 0-Ymakmumaem-pvxaobh completes the activity by him/herself with no assistance from a helper. 5-Set-up or Clean-up Assistance-helper sets up or cleans up; patient completes activity. [place] assists only prior to or following the activity. 4-Supervision or Touching Assistance-helper provides verbal cues and/or touching/steadying and/or contact guard assistance as patient completes activity. Assistance may be provided throughout the activity or intermittently. 3-Partial/Moderate Assistance-helper does LESS THAN HALF the effort. [place] lifts, holds or supports trunk or limbs, but provides less than half the effort. 2-Substantial/Maximal Assistance-helper does MORE THAN HALF the effort. [place] lifts or holds trunk or limbs and provides more than half the effort. 0-Xhtthyvry-wmmwfh does ALL the effort. Patient does none of the effort to complete the activity. Or, the assistance of 2 or more helpers is required for the patient to complete the activity. If activity was not attempted, code reason: 7-Patient Refused. 9-Not Applicable-not attempted and the patient did not perform the activity before the current illness, exacerbation or injury. 10-Not Attempted due to Environmental Limitations-(lack of equipment, weather restraints, etc.). 88-Not Attempted due to Medical Conditions or Safety Concerns. Eating (QC): 6 Other Treatment Pt given theraband HEP and dowel haylie with 3# wt for use in room. Dowel haylie exercises:bicep curls-15 reps, tricep-15 reps, modified chest press-10 reps. Pt fatigued quickly and required lengthy recovery breaks between exercises. PT completed B LE exercises. See PT notes for transfer progress. Pt then transferred into w/c using FWW with assist x2 for safety. Pt able to complete w/c mobility independently though required multiple recovery breaks. SPT to therapy mat to work on sitting balance, supine <--> EOB, stretching L hip. Pt then propelled back to room and completed SPT assist x2 to recliner. After therapy, pt sitting in recliner with call light/phone in reach. All needs met in room. OT Short Term Goals Short Term Goals Time Frame: Mar 08, 2022 Toileting hygiene: 2 Shower/bathe self: 3 Lower body dressin Putting on/taking off footwear: 3 OT Care Home Goals Care Home Goals Time Frame: Mar 24, 2022 Eating (QC): 6 Oral Hygiene (QC): 6 Toileting Hygiene (QC): 3 (bowel movements on toilet) Shower/Bathe Self (QC): 4 Upper Body Dressing (QC): 5 Lower Body Dressing (QC): 3 On/Off Footwear (QC): 4 Additional Goals: 1-Demonstrate ADL Tasks, 2-Verbalize Understanding, 3-ImproveStrength/Lalit 1=Demonstrate adherence to instructed precautions during ADL tasks. 2=Patient will verbalize/demonstrate understanding of assistive devices/modifications for ADL. 3=Patient will improve strength/tolerance for activity to enable patient to perform ADL's. OT Education/Plan Problem List/Assessment Assessment: Decreased Activ Tolerance, Decreased UE Strength, Impaired Bed Mobility, Impaired Coordination, Impaired Funct Balance, Impaired Self-Care Skills, Restricted Funct UE ROM Discharge Recommendations Plan/Recommendations: Continue POC Treatment Plan/Plan of Care Patient would benefit from OT for education, treatment and training to promote independence in ADL's, mobility, safety and/or upper extremity function for ADL's. Plan of Care: ADL Retraining, Caregiver Training, Functional Mobility, Group Exercise/Act as Ind, UE Funct Exercise/Act, W/C Management Training Treatment Duration: Mar 24, 2022 Frequency: At least 5 of 7 days/Wk (IRF) Estimated Hrs Per Day: 1.5 hours per day Rehab Potential: Guarded Time/GCodes Start Time: 12:45 Stop Time: 14:15 Total Time Billed (hr/min): 90 Billed Treatment Time 1 visit-ADL 2 (35 min) EX 2 (35 min) FA 1 (20 min) co-treat with PT [id number], individual [id number] KATERIN MONTENEGRO Mar 06, 2022 14:37
[2022-03-06] MEDS ORDERED: FUROSEMIDE 40 MG/4 ML INJ (LASIX) IVP NR (17:00)
--- NOTE | 2022-03-06 19:00 | Progress Note - Cardiology ---
Cardiology SOAP Progress Note Subjective: Sudden onset of shortness of breath this am, treated with diuretics No cp or palp No n/v/d/ No focal weakness Gen weakness worse Objective: I&O/Vital Signs 03/06/22 03/06/22 03/06/22 07:36 08:42 09:00 Temp 34.9 Pulse 101 Resp 20 B/P (MAP) 172/78 (109) Pulse Ox 96 96 97 O2 Delivery Nasal Cannula Nasal Cannula Nasal Cannula O2 Flow Rate 3.00 3.00 3.00 Constitutional: AAO x 3, well-developed, well-nourished Respiratory: No accessory muscle use, No respiratory distress; chest expansion is symmetric, chest is bilaterally symmetric, other (diminished lower lobes) Cardiovascular: regular rate-rhythm; No JVD; S1 and S2 Gastrointestional: No tender; soft, round, audible bowel sounds Extremities: other (RLE without swelling; dressing to R AKA stump which is D/I, not removed) Neurologic/Psychiatric: oriented x 3, other (moves all limbs) Skin: No rash on exposed areas, No ulcerations on exposed areas; other (a brasion to right leg) Results/Procedures: Labs Laboratory Tests 03/05/22 20:31: Glucometer 227H 03/06/22 05:10: White Blood Count 20.1H, Red Blood Count 4.20L, Hemoglobin 10.2L, Hematocrit 35L , Mean Corpuscular Volume 84, Mean Corpuscular Hemoglobin 24L, Mean Corpuscular Hemoglobin Concent 29L, Red Cell Distribution Width 18.7H, Platelet Count 364, Mean Platelet Volume 10.6, Immature Granulocyte % (Auto) 2, Neutrophils (%) (Aut o) 90H, Lymphocytes (%) (Auto) 4L, Monocytes (%) (Auto) 3, Eosinophils (%) (Auto) 0, Basophils (%) (Auto) 0, Neutrophils # (Auto) 18.2H, Lymphocytes # (Auto) 0.8L, Monocytes # (Auto) 0.6, Eosinophils # (Auto) 0.1, Basophils # ( Auto) 0.1, Immature Granulocyte # (Auto) 0.4H, Sodium Level 139, Potassium Level 3.9, Chloride Level 101, Carbon Dioxide Level 26, Anion Gap 12, Blood Urea Nitrogen 9, Creatinine 0.67, Estimat Glomerular Filtration Rate 100, BUN/Creatinine Ratio 13, Glucose Level 241H, Calcium Level 9.2, Corrected Calcium 10.1, Total Bilirubin 0.4, Aspartate Amino Transf (AST/SGOT) 22, Alanine Aminotransferase (ALT/SGPT) 31, Alkaline Phosphatase 97, B-Type Natriuretic Peptide 913.4H, Total Protein 6.6, Albumin 2.9L 03/06/22 06:51: Procalcitonin 0.07 03/06/22 08:46: Blood Gas Puncture Site L RAD, Blood Gas Patient Temperature 37, Arterial Blood pH 7.40, Arterial Blood Partial Pressure CO2 52H, Arterial Blood Partial Pressure O2 79, Arterial Blood HCO3 31H, Arterial Blood Total CO2 33.0H, Arterial Blood Oxygen Saturation 96, Arterial Blood Base Excess 6.6H, Ramesh Test YES-POS, Blood Gas Ventilator Setting NO, Blood Gas Inspired Oxygen 3 03/06/22 08:55: Lactic Acid Level 1.28 03/06/22 10:54: Glucometer 253H 03/06/22 15:22: Glucometer 185H Microbiology 02/27/22 Blood Culture - Final, Complete No growth Laboratory Tests 03/06/22 05:10 Laboratory Tests 03/06/22 05:10 A/P: Assessment: Acute on chronic systolic CHF on 03/06/22 - treat with IV diuretics 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 Perez on 02-23-22. Leukocytosis- worsening - managed by Dr Chappell PVD - reports PTCA bilat by Dr. Álvarez at [facility] in 2020 - reports stent x 2 to the L leg 02-03-22 (prior to BKA) by Dr. Sánchez at [facility] - reports PTCA to R leg 02-05-[address] Sánchez CAD - H/O CABG x 5 vessel [place] [address] Parry ICM - last echo at [place] reported LVEF 40% (per nursing staff, date unknown) - maintained on Losartan Carotid dz - H/O L CEA in 2010 at [facility] - H/O chronic occlusion of the R carotid per pt report PAF - maintained on Amiodarone and Toprol - Previously on OAC with Eliquis (currently not taking) - H/O cardioversions in the past, last one >2 yrs ago HTN HLD DM 2 Anemia - undetermined etiology - management by Dr Chappell Plan: Acute on chronic systolic CHF - treat with IV diuretics - Echocardiogram today - replace electrolytes as indicated Management of worsening leukocytosis is by SHI Loja MD FACP FACC CCDS Mar 06, 2022 19:00
[2022-03-06 20:11] VITALS: BP 146/79
[2022-03-07 05:50] LABS: HEMATOCRIT 32 % (40-54); HEMOGLOBIN 9.5 g/dL (13.3-17.7); MEAN CORPUSCULAR HEMOGLOBIN 24 pg (25-34); MEAN CORPUSCULAR HGB CONC 29 g/dL (32-36); MEAN CORPUSCULAR VOLUME 83 fL (80-99); MEAN PLATELET VOLUME 10.4 fL (9.0-12.2); PLATELET COUNT 348 10^3/uL (130-400); WHITE BLOOD COUNT 12.9 10^3/uL (4.3-11.0)
[2022-03-07 05:59] LABS: POTASSIUM 3.6 MMOL/L (3.6-5.0)
[2022-03-07 06:00] LABS: CALCIUM 9.1 MG/DL (8.5-10.1)
[2022-03-07 06:05] LABS: CREATININE SERUM 0.67 MG/DL (0.60-1.30)
[2022-03-07 06:08] LABS: MAGNESIUM 1.6 MG/DL (1.6-2.4)
[2022-03-07] MEDS: inSUlin ASPART (NovoLOG) 1 UNIT/0.01 ML (CHARGE PER UNIT) SC SCH ×4 (06:40→20:49)
[2022-03-07] MEDS: LEVOTHYROXINE 100 MCG (LEVOTHROID) TAB PO SCH (06:40)
[2022-03-07] MEDS: GLIMEPIRIDE 1 MG (AMARYL) TAB PO SCH (06:40)
[2022-03-07 07:26] VITALS: BP 162/72
[2022-03-07] MEDS: APIXABAN 5 MG (ELIQUIS) TABLET PO SCH ×2 (07:49→20:48)
[2022-03-07] MEDS: LOSARTAN 25 MG (COZAAR) TAB PO SCH (07:49)
[2022-03-07] MEDS: FUROSEMIDE 40 MG (LASIX) TAB PO SCH (07:49)
[2022-03-07] MEDS: PANTOPRAZOLE 40 MG (PROTONIX) TAB PO SCH (07:50)
[2022-03-07] MEDS: KCL 10 MEQ TAB (MICRO K) PO SCH ×2 (07:50→20:48)
[2022-03-07] MEDS: LACTOBACILLUS ACIDOPHILUS (PROBIOTIC) CAPSULE PO SCH ×3 (07:50→17:10)
[2022-03-07] MEDS: AMIODARONE 200 MG (CORDARONE) TAB PO SCH (07:50)
[2022-03-07] MEDS: polyethylene glycoL POWDER 17 GM (MIRALAX) PACK PO SCH ×2 (07:51→21:14)
[2022-03-07] MEDS: DOCUSATE SODIUM 100 MG (COLACE) CAP PO SCH ×2 (07:51→21:14)
[2022-03-07] MEDS: SENNA W/DOCUSATE (SENOKOT S) TABLET PO SCH ×2 (07:52→21:14)
--- NOTE | 2022-03-07 08:56 | PM&R Progress Note ---
Subjective HPI/CC On Admission Date Seen by Provider: Mar 07, 2022 Time Seen by Provider: 09:00 Subjective/Events-last exam 03/07/2022: Doing well today Volume overload resolved Labs reviewed Sugars noted Pain controlled 03/06/2022: Patient having difficulty with shortness of breath and tachypnea Oxygen placed due to hypoxia Septic work-up normal but it appears he has congestive heart failure and volume overload Cardiology consulted after he gave him Lasix 40 mg IV Supportive care will continue 03/05/2022: Patient doing well No pain reported Slept well last night No falls 03/04/2022: Late entry note inadvertently missed note Doing well IV abx maintained BM+ at bedside Melatonin gave him bad dreams 03/03/2022: Pt is doing well White blood cell count is 14 Hemoglobin is 8.9 Stump looks really good Overall doing much better 03/02/2022: Hemoglobin is 8.5 after one unit of blood yesterday White count is 16,000 Bowels moved a little bit today, will get aggressive with that Hep locking IV fluid 03/01/2022: Pt had some incontinence today Dressing was saturated Decrease BP medication for Dr. Kerns A little bit confused Will give one unit of blood today Maintain on broad spectrum antibiotics White count still elevated at 17 02/28/2022: Pt is doing well Mild hypotension not due to sepsis so will give 500 ccs bolus IV fluids 60 an hour Decrease procalcitonin Zosyn and Vancomycin maintained 02/27/2022: Pt is doing a lot better Sleeps all the time Fever and elevated white count with procalcitonin elevation prompting blood and urine cultures, chest x-ray, and empiric IV antibiotics PICC will be placed 02/26/2022: Patient settling in well Sugars lower so will hold Metformin No pain except hip and left shoulder Glucometer assessed at bedside No issues otherwise Review of Systems General: Fatigue, Malaise Musculoskeletal: leg pain Focused Exam Lactate Level 03/06/22 08:55: Lactic Acid Level 1.28 Objective Exam Vital Signs Vital Signs Date Time Temp Pulse Resp B/P (MAP) Pulse Ox O2 Delivery O2 Flow Rate FiO2 03/07/22 21:38 96 Nasal Cannula 1.50 03/07/22 19:43 37.1 90 20 151/81 (104) Capillary Refill : General Appearance: No Apparent Distress, WD/WN HEENT: PERRL/EOMI, Normal ENT Inspection, Pharynx Normal Neck: Normal Inspection, Supple Respiratory: No Accessory Muscle Use, No Respiratory Distress Cardiovascular: Regular Rate, Rhythm, No Edema, No Gallop, No JVD, No Murmur, Normal Peripheral Pulses Gastrointestinal: Normal Bowel Sounds, No Organomegaly, No Pulsatile Mass, Non Tender, Soft Back: Normal Inspection, No CVA Tenderness, No Vertebral Tenderness Extremity: Other (left AKA with dressing in place C/D/I) Neurologic/Psychiatric: Alert, Oriented x3 Skin: Normal Color, Warm/Dry Lymphatic: No Adenopathy Results/Procedures Lab Patient resulted labs reviewed. FIM Transfers Therapy Code Descriptions/Definitions Functional [place] Measure: 0=Not Assessed/NA 4=Minimal Assistance 1=Total Assistance 5=Supervision or Setup 2=Maximal Assistance 6=Modified [place] 3=Moderate Assistance 7=Complete IndependenceSCALE: Activities may be completed with or without assistive devices. 4-Wfejmetrvh-awviptc completes the activity by him/herself with no assistance from a helper. 5-Set-up or Clean-up Assistance-helper sets up or cleans up; patient completes activity. [place] assists only prior to or following the activity. 4-Supervision or Touching Assistance-helper provides verbal cues and/or touching/steadying and/or contact guard assistance as patient completes activity. Assistance may be provided throughout the activity or intermittently. 3-Partial/Moderate Assistance-helper does LESS THAN HALF the effort. [place] lifts, holds or supports trunk or limbs, but provides less than half the effort. 2-Substantial/Maximal Assistance-helper does MORE THAN HALF the effort. [place] lifts or holds trunk or limbs and provides more than half the effort. 5-Rpqiqhudl-wojuxz does ALL the effort. Patient does none of the effort to complete the activity. Or, the assistance of 2 or more helpers is required for the patient to complete the activity. If activity was not attempted, code reason: 7-Patient Refused. 9-Not Applicable-not attempted and the patient did not perform the activity before the current illness, exacerbation or injury. 10-Not Attempted due to Environmental Limitations-(lack of equipment, weather restraints, etc.). 88-Not Attempted due to Medical Conditions or Safety Concerns. Roll Left to Right (QC): 4 Sit to Lying (QC): 4 Sit to Stand (QC): 2 Chair/Ddn-xn-Stswu Xfer(QC): 2 Car Transfer (QC): 2 Gait Training Does the Patient Walk?: No and Walking Goal NOT indicated Walk 10 feet (QC): 88 Walk 50 ft with 2 Turns(QC): 88 Walk 150 ft (QC): 88 Walking 10ft/uneven surface-QC: 88 Wheelchair Training Does the Pt Use a Wheelchair?: Yes Distance: 100'x2 Wheel 50 ft with 2 turns (QC): 4 Wheel 150 ft (QC): 4 Type of Wheelchair: Manual Stair Training 1 Step (curb) (QC): 88 4 Steps (QC): 88 12 Steps (QC): 88 Balance Picking up an Object (QC): 88 ADL-Treatment Eating (QC): 6 Oral Hygiene (QC): 5 (set up at sink) Shower/Bathe Self (QC): 1 (Assist x2 with sponge bath to help with bed mobility and wiping) Upper Body Dressing (QC): 3 (Mod A. Assist required overhead and slight assistance down trunk.) Lower Body Dressing (QC): 1 (Assist x2) On/Off Footwear (QC): 1 Toileting Hygiene (QC): 1 (Assist x2 for bowel movement. 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 Fall 02/21/22 resulting in left shoulder injury causing further debility and limiting ADL/independence Severe PVD PAF OAC HTN HLP DM Hypothyroidism Previous hypoglycemia required holding metformin and glimepiride but now on lower dose Constipation resolved Poor venous access requiring PICC 02/27/22 Anemia post op requiring transfusion 03/01/22 Volume overload CHF requiring IV Lasix 03/06/2022 Plan: PT OT w/c mobility Home meds 02/26/2022: Pain control Monitor sugar Hold Metformin 02/27/22: Empiric broad spectrum abx Hold Metformin and OAC PICC line 02/28/2022: IV abx Monitor closely 03/01/2022: Transfuse Broad spectrum abx 03/02/2022: Monitor hgb Broad spectrum abx 03/03/2022: IV abx Monitor hgb 03/04/2022: DC Melatonin IV abx 03/05/2022: Monitor closely Check labs in am 03/06/2022: IV Lasix Oxygen 03/07/2022: Monitor labs (1) S/P AKA (above knee amputation) (2) Gangrene XIOMARA DICKENS DO Mar 07, 2022 08:56
--- NOTE | 2022-03-07 11:10 | Occupational Ther Daily Note ---
OT Current Status-Daily Note Subjective Pt alert, lying in bed. Pt states that he is tired today, but agrees to therapy. Co-treat with PT ([id number]), skills of 2 clinicians required to decrease fall risk, increase strength, mobility and activity tolerance. PT focusing on transfers, w/c mobility, bed mobility, transfers and ambulation while OT focusing on ADLs, functional mobility, dynamic standing and B UE placement with all mobility. Mental Status/Objective Patient Orientation: Person, Place, Time, Situation Attachments: IV, Oxygen (1.5L, pt went from 80% to 95% quickly then stayed above 90% throughout session.) ADL-Treatment Due to decrease of B shldr AROM pt requires assistance to hold B UE's at 90*and above. Pt agrees to sponge bath. Min A for supine to EOB then pt sits EOB independently. After set up, pt able to complete upper body bathing by self though requires encouragement to complete. Pt able to cleanse upper legs sitting on EOB and zul[place] area while in supine. Assist to cleanse R lower leg/feet. Assist x2 to stand and cleanse buttocks. Min A for upper body dressing. Dependent for lower body dressing and footwear. Independent with oral care sitting at sink. Therapy Code Descriptions/Definitions Functional [place] Measure: 0=Not Assessed/NA 4=Minimal Assistance 1=Total Assistance 5=Supervision or Setup 2=Maximal Assistance 6=Modified [place] 3=Moderate Assistance 7=Complete IndependenceSCALE: Activities may be completed with or without assistive devices. 3-Ucwuhedliy-zvuhohn completes the activity by him/herself with no assistance from a helper. 5-Set-up or Clean-up Assistance-helper sets up or cleans up; patient completes activity. [place] assists only prior to or following the activity. 4-Supervision or Touching Assistance-helper provides verbal cues and/or touching/steadying and/or contact guard assistance as patient completes activity. Assistance may be provided throughout the activity or intermittently. 3-Partial/Moderate Assistance-helper does LESS THAN HALF the effort. [place] lifts, holds or supports trunk or limbs, but provides less than half the effort. 2-Substantial/Maximal Assistance-helper does MORE THAN HALF the effort. [place] l ifts or holds trunk or limbs and provides more than half the effort. 6-Oqtgqnvhs-jynhbp does ALL the effort. Patient does none of the effort to complete the activity. Or, the assistance of 2 or more helpers is required for the patient to complete the activity. If activity was not attempted, code reason: 7-Patient Refused. 9-Not Applicable-not attempted and the patient did not perform the activity before the current illness, exacerbation or injury. 10-Not Attempted due to Environmental Limitations-(lack of equipment, weather restraints, etc.). 88-Not Attempted due to Medical Conditions or Safety Concerns. Oral Hygiene (QC): 6 Bathing Location: L Arm, R Arm, L Upper Leg, R Upper Leg, Chest, Abdomen, Perineal Area Shower/Bathe Self (QC): 1 Upper Body Dressing (QC): 3 Lower Body Dressing (QC): 1 On/Off Footwear: 1 Other Treatment Pt able to propel w/c by self with minimal cues for efficiency. Pt then stood at parallel bars and ambulated with max A x2 3x's. Pt then stood at parallel bars and lifted one hand at a time to work on functional movement while in standing, assist x2. Pt completed arm pulleys for 3 min against gravity. After session, pt lying in bed with call light/phone in reach. All needs met in room. OT Short Term Goals Short Term Goals Time Frame: Mar 08, 2022 Toileting hygiene: 2 Shower/bathe self: 3 Lower body dressin Putting on/taking off footwear: 3 OT Custodial Goals Custodial Goals Time Frame: Mar 24, 2022 Eating (QC): 6 Oral Hygiene (QC): 6 Toileting Hygiene (QC): 3 (bowel movements on toilet) Shower/Bathe Self (QC): 4 Upper Body Dressing (QC): 5 Lower Body Dressing (QC): 3 On/Off Footwear (QC): 4 Additional Goals: 1-Demonstrate ADL Tasks, 2-Verbalize Understanding, 3- ImproveStrength/Lalit 1=Demonstrate adherence to instructed precautions during ADL tasks. 2=Patient will verbalize/demonstrate understanding of assistive devices/modifications for ADL. 3=Patient will improve strength/tolerance for activity to enable patient to perform ADL's. OT Education/Plan Problem List/Assessment Assessment: Decreased Activ Tolerance, Decreased Safety Aware, Decreased UE Strength, Dependent Transfers, Impaired Bed Mobility, Impaired Cognition, Impaired Funct Balance, Impaired Self-Care Skills, Restricted Funct UE ROM Discharge Recommendations Plan/Recommendations: Continue POC Treatment Plan/Plan of Care Patient would benefit from OT for education, treatment and training to promote independence in ADL's, mobility, safety and/or upper extremity function for ADL's. Plan of Care: ADL Retraining, Caregiver Training, Functional Mobility, Group Exercise/Act as Ind, UE Funct Exercise/Act, W/C Management Training Treatment Duration: Mar 24, 2022 Frequency: At least 5 of 7 days/Wk (IRF) Estimated Hrs Per Day: 1.5 hours per day Rehab Potential: Guarded Time/GCodes Start Time: 09:00 Stop Time: 10:30 Total Time Billed (hr/min): 90 Billed Treatment Time 1 visit-ADL 3 (45 min) FA 2 (30 min) EX 1 (15 min) co-treat with PT 90 min KATERIN MONTENEGRO Mar 07, 2022 11:10
--- NOTE | 2022-03-07 12:44 | Progress Note - Cardiology ---
Cardiology SOAP Progress Note Subjective: States he feels much better today Breathing is back to baseline No c/o CP or palpitations Objective: I&O/Vital Signs 03/08/22 03/08/22 03/08/22 07:23 07:47 09:00 Temp 35.5 Pulse 95 Resp 21 B/P (MAP) 199/91 (127) Pulse Ox 91 94 O2 Delivery Nasal Cannula Nasal Cannula Nasal Cannula O2 Flow Rate 3.00 3.00 2.00 Constitutional: AAO x 3, well-developed, well-nourished Respiratory: No accessory muscle use, No respiratory distress; chest expansion is symmetric, chest is bilaterally symmetric, lungs clear to auscultation Cardiovascular: regular rate-rhythm; No JVD; S1 and S2 Gastrointestional: No tender; soft, round, audible bowel sounds Extremities: other (RLE without swelling; dressing to R AKA stump which is D/I, not removed) Neurologic/Psychiatric: oriented x 3, other (moves all limbs) Skin: No rash on exposed areas, No ulcerations on exposed areas; other (abrasion to right leg) Results/Procedures: Labs Laboratory Tests 03/07/22 15:33: Glucometer 173H 03/07/22 20:10: Glucometer 200H 03/08/22 05:47: Glucometer 166H 03/08/22 06:25: White Blood Count 14.7H, Red Blood Count 3.92L, Hemoglobin 9.7L, Hematocrit 33L, Mean Corpuscular Volume 83, Mean Corpuscular Hemoglobin 25, Mean Corpuscular Hemoglobin Concent 30L, Red Cell Distribution Width 18.6H, Platelet Count 359, Mean Platelet Volume 10.4, Immature Granulocyte % (Auto) 1, Neutrophils (%) (A uto) 88H, Lymphocytes (%) (Auto) 6L, Monocytes (%) (Auto) 4, Eosinophils (%) (Auto) 1, Basophils (%) (Auto) 0, Neutrophils # (Auto) 13.0H, Lymphocytes # (Auto) 0.9L, Monocytes # (Auto) 0.5, Eosinophils # (Auto) 0.1, Basophils # (Auto) 0.1, Immature Granulocyte # (Auto) 0.1, Neutrophils % (Manual) 90, Lymphocytes % (Manual) 8, Monocytes % (Manual) 2, Hypochromasia MODERATE, Poikilocytosis , Anisocytosis SLIGHT, Microcytosis SLIGHT, Stomatocytes SLIGHT, Sodium Level 141, Potassium Level 4.0, Chloride Level 99, Carbon Dioxide Level 31, Anion Gap 11, Blood Urea Nitrogen 10, Creatinine 0.69, Estimat Glomerular Filtration Rate 99, BUN/Creatinine Ratio 14, Glucose Level 206H, Calcium Level 9.3, Corrected Calcium 10.3H, Total Bilirubin 0.4, Aspartate Amino Transf (AST/SGOT) 19, Alanine Aminotransferase (ALT/SGPT) 21, Alkaline Phosphatase 79, Total Protein 6.3L, Albumin 2.8L 03/08/22 11:01: Glucometer 219H Microbiology 03/06/22 Gram Stain - Final, Resulted 03/06/22 Wound Culture - Preliminary, Resulted Gram Negative Michel 02/27/22 Blood Culture - Final, Complete No growth A/P: Assessment: Acute on chronic systolic/diastolic CHF on 03/06/22 - treated with IV diuretics - clinically compensated at this time S/P L BKA in late January 2022 at [facility] - subsequent wet gangrene necessitating L AKA by Dr. Perez on 02-23-22. Leukocytosis - managed by Dr Chappell PVD - reports PTCA bilat by Dr. Álvarez at [facility] in 2020 - reports stent x 2 to the L leg 02-03-22 (prior to BKA) by Dr. Sánchez at [facility] - reports PTCA to R leg 02-05-[address] Sánchez CAD - H/O CABG x 5 vessel in [address] Parry ICM - last echo at [place] reported LVEF 40% (per nursing staff, date unknown) - maintained on Losartan - Echocardiogram of 03-06-22 showed LVEF 45-50%. Grade 2 diastolic dysfunction. PASP 55-60 mmHg. Carotid dz - H/O L CEA in 2010 at [facility] - H/O chronic occlusion of the R carotid per pt report PAF - maintained on Amiodarone and Toprol - Previously on OAC with Eliquis (currently not taking) - H/O cardioversions in the past, last one >2 yrs ago HTN HLD DM 2 Anemia - undetermined etiology - management by Dr Chappell Plan: Acute on chronic systolic/diastolic CHF - clinically improved - increased oral Lasix dose HTN with tachycardia - not well controlled - increase BB Monitor lab DANIEL BORRERO [facility] Mar 07, 2022 12:43
--- NOTE | 2022-03-07 13:31 | Physical Therapy Daily Note ---
PT Daily Note-Current Subjective Patient sitting on edge of bed with OT beginning bed bath upon PT arrival, agreeable to treatment. Patient will be co-treated with OT due to patients increased need for 2 disciplines to efficiently and safely perform treatment with patient due to poor balance, increased fall risk, decline in strength and difficulty performing ADLs. OT will focus on the UEs and functional ADLS while PT will focus on LE strength and mobility ADLs. Mental Status Patient Orientation: Person Transfers SCALE: Activities may be completed with or without assistive devices. 2-Dqnrsdxvfp-oxuqtvq completes the activity by him/herself with no assistance from a helper. 5-Set-up or Clean-up Assistance-helper sets up or cleans up; patient completes activity. [place] assists only prior to or following the activity. 4-Supervision or Touching Assistance-helper provides verbal cues and/or touching/steadying and/or contact guard assistance as patient completes activity. Assistance may be provided throughout the activity or intermittently. 3-Partial/Moderate Assistance-helper does LESS THAN HALF the effort. [place] lifts, holds or supports trunk or limbs, but provides less than half the effort. 2-Substantial/Maximal Assistance-helper does MORE THAN HALF the effort. [place] lifts or holds trunk or limbs and provides more than half the effort. 9-Qrwqcfdmh-osjxzm does ALL the effort. Patient does none of the effort to complete the activity. Or, the assistance of 2 or more helpers is required for the patient to complete the activity. If activity was not attempted, code reason: 7-Patient Refused. 9-Not Applicable-not attempted and the patient did not perform the activity before the current illness, exacerbation or injury. 10-Not Attempted due to Environmental Limitations-(lack of equipment, weather restraints, etc.). 88-Not Attempted due to Medical Conditions or Safety Concerns. Roll Left & Right (QC): 4 Sit to Lying (QC): 4 Lying to Sitting/Side of Bed(Q: 4 Sit to Stand (QC): 1 Chair/Qds-jb-Triyb Xfer(QC): 1 Toilet Transfer (QC): 1 Weight Bearing Full Weight Bearing Wheelchair Training Does the Pt Use a Wheelchair?: Yes Wheel 50 ft with 2 turns (QC): 4 Wheel 150 ft (QC): 4 Type of Wheelchair: Manual 250 feet x 2 with SBA Exercises Seated Therapy Exercises: Ankle pumps, Sit to stand, Long arc quads Seated Reps: 10 Assessment Current Status: Poor Progress Patient was co-treated with OT due to patients increased need for 2 disciplines to efficiently and safely perform treatment with patient due to poor balance, increased fall risk, decline in strength and difficulty performing ADLs. OT will focus on the UEs and functional ADLS while PT will focus on LE strength and mobility ADLs. Patient performs all observed bed mobility with SBA. He performs sit to stand with max A and SPT with max A to the w/c. Patient performs dynamic standing balance with PT focus on balance and mobility, OT focus on dressing and bathing. Patient propels w/c 250 feet x 2 with SBA. Patient performs static and dynamic standing balance with mod A x 2 with UE raises to promote increased weight bearing on right LE and decreased reliance on UEs. Patient able to ambulate 6 feet with parallel bars, with max A and person following with w/c. Patient propels w/c 250 feet back to room. Patient requires mod A x 2 for transfer into bed. Patient in bed post treatment with all needs met, nursing notified, call light in reach. PT Short Term Goals Short Term Goals Time Frame: Mar 03, 2022 Roll Left & Right: 4 Sit to lyin ([place]) Lying to sitting on side of be: 3 (Bats[place]va) Sit to stand: 3 (modA) Chair/hvh-pl-zidvx transfer: 3 (modA) PT Fpc Goals Quality Control Clerk Goals PT Quality Control Clerk Goals Time Frame: Mar 17, 2022 Roll Left & Right (QC): 6 Sit to Lying (QC): 4 (SBA) Lying-Sitting on Side/Bed(QC): 4 (SBA) Sit to Stand (QC): 3 ([place]va) Chair/Kma-jz-Hbwyr Xfer(QC): 3 ([place]) Toilet Transfer (QC): 3 ([place]va) Car Transfer (QC): 3 ([place]va) Does the Patient Walk: No and Walking Goal NOT indicated Walk 10 feet (QC): 88 Walk 50ft with 2 Turns (QC): 88 Walk 150 ft (QC): 88 Walking 10ft on Uneven Surface: 88 1 Step (curb) (QC): 88 4 Steps (QC): 88 12 Steps (QC): 88 Picking up an Object (QC): 88 Wheel 50 feet with 2 turns (QC: 6 Wheel 150 feet: 6 PT Plan Treatment/Plan Treatment Plan: Continue Plan of Care Treatment Plan: Bed Mobility, Education, Functional Activity Lalit, Functional Strength, Group Therapy, Safety, Therapeutic Exercise, Transfers Treatment Duration: Mar 17, 2022 Frequency: At least 5 of 7 days/Wk (IRF) Estimated Hrs Per Day: 1.5 hours per day Patient and/or Family Agrees t: Yes Safety Risks/Education Patient Education: Gait Training, Transfer Techniques, W/C Management Teaching Recipient: Patient Teaching Methods: Demonstration, Discussion Response to Teaching: Reinforcement Needed Time/GCodes Time In: 900 Time Out: 1030 Total Billed Treatment Time: 90 Total Billed Treatment Visit, W/C, FA (5) CANDI ANGELES PT Mar 07, 2022 13:30
--- NOTE | 2022-03-07 14:39 | Progress Note - Surgery ---
Subjective Time Seen by a Provider: 12:48 Subjective/Events-last exam Pt seen and examined, he was sitting on the side of bed eating his lunch. He did not appear to be in any distress. Asked to look at AKA site, there was concern because of drainage and "tunneling". Review of Systems General: No Chills, No Fatigue Pulmonary: No Dyspnea, No Cough Cardiovascular: No: Chest Pain, Palpitations Gastrointestinal: No: Nausea, Vomiting, Abdominal Pain Musculoskeletal: No: leg pain Focused Exam Lactate Level 03/06/22 08:55: Lactic Acid Level 1.28 Objective Exam Vital Signs Date Time Temp Pulse Resp B/P (MAP) Pulse Ox O2 Delivery O2 Flow Rate FiO2 03/07/22 09:00 93 Nasal Cannula 1.00 03/07/22 08:45 94 Nasal Cannula 1.50 03/07/22 07:26 36.5 89 18 162/72 (102) 93 Nasal Cannula 1.00 03/06/22 21:45 96 Nasal Cannula 2.00 03/06/22 20:11 36.9 91 20 146/79 (101) 96 Nasal Cannula 1.50 I & O 03/07/22 07:00 Intake Total 1450 ml Output Total 3525 ml Balance -2075 ml Capillary Refill : General Appearance: No Apparent Distress, WD/WN HEENT: PERRL/EOMI Respiratory: No Accessory Muscle Use, No Respiratory Distress Cardiovascular: Regular Rate, Rhythm, No Murmur Gastrointestinal: normal bowel sounds, non tender, soft Extremity: Other (left AKA with siri and sutures still in place. Minimal erythema surrounding incision (looks like normal healing). No foul smell, no spreading of erythema, there is some serous drainage with probable fat necrosis. I am unsure what tunneling was seen, he does have "space" under skin, but I believe this is just from the surgery and not actual tunneling) Neurologic/Psychiatric: Alert, Oriented x3 Skin: Normal Color, Warm/Dry Results Lab Laboratory Tests 03/06/22 15:22: Glucometer 185H 03/06/22 20:10: Glucometer 218H 03/07/22 05:28: White Blood Count 12.9H, Red Blood Count 3.90L, Hemoglobin 9.5L, Hematocrit 32L, Mean Corpuscular Volume 83, Mean Corpuscular Hemoglobin 24L, Mean Corpuscular Hemoglobin Concent 29L, Red Cell Distribution Width 18.6H, Platelet Count 348, Mean Platelet Volume 10.4, Sodium Level 143, Potassium Level 3.6, Chloride Level 101, Carbon Dioxide Level 29, Anion Gap 13, Blood Urea Nitrogen 9, Creatinine 0.67, Estimat Glomerular Filtration Rate 100, BUN/Creatinine Ratio 13, Glucose Level 188H, Calcium Level 9.1, Magnesium Level 1.6 03/07/22 10:54: Glucometer 199H Microbiology 03/06/22 Gram Stain - Final, Resulted 03/06/22 Wound Culture - Preliminary, Resulted Gram Negative Michel 02/27/22 Blood Culture - Final, Complete No growth Assessment/Plan Assessment/Plan Assessment/Plan S/P AKA Pt is tolerating diet, there was a culture done which showed Gram Negative rods. Would wait for sensitivity; he cannot take the Vancomycin and Zosyn was recently stopped. He did have a high WBC yesterday of 20.1, but today it is 12.9. Would just monitor and continue local wound care, start ABX tailored to sensitivity results. GAVIOTA COLEY DO Mar 07, 2022 14:39
[2022-03-07 19:43] VITALS: BP 151/81
[2022-03-08] MEDS: LEVOTHYROXINE 100 MCG (LEVOTHROID) TAB PO SCH (06:10)
[2022-03-08] MEDS: GLIMEPIRIDE 1 MG (AMARYL) TAB PO SCH (06:10)
[2022-03-08] MEDS: inSUlin ASPART (NovoLOG) 1 UNIT/0.01 ML (CHARGE PER UNIT) SC SCH ×4 (06:10→21:22)
[2022-03-08 06:38] LABS: BASOPHILS # (AUTO) 0.1 10^3/uL (0.0-0.1); BASOPHILS % (AUTO) 0 % (0-10); EOSINOPHILS # (AUTO) 0.1 10^3/uL (0.0-0.3); EOSINOPHILS % (AUTO) 1 % (0-10); HEMATOCRIT 33 % (40-54); HEMOGLOBIN 9.7 g/dL (13.3-17.7); LYMPHOCYTES # (AUTO) 0.9 10^3/uL (1.0-4.0); LYMPHOCYTES % (AUTO) 6 % (12-44); MEAN CORPUSCULAR HEMOGLOBIN 25 pg (25-34); MEAN CORPUSCULAR HGB CONC 30 g/dL (32-36); MEAN CORPUSCULAR VOLUME 83 fL (80-99); MEAN PLATELET VOLUME 10.4 fL (9.0-12.2); MONOCYTES # (AUTO) 0.5 10^3/uL (0.0-1.0); MONOCYTES % (AUTO) 4 % (0-12); NEUTROPHILS % (AUTO) 88 % (42-75); PLATELET COUNT 359 10^3/uL (130-400); WHITE BLOOD COUNT 14.7 10^3/uL (4.3-11.0)
[2022-03-08 06:53] LABS: NEUTROPHILS % (MANUAL) 90 %
[2022-03-08 06:54] LABS: ANISOCYTOSIS SLIGHT; HYPOCHROMASIA MODERATE; LYMPHOCYTES % (MANUAL) 8 %; MICROCYTOSIS SLIGHT; MONOCYTES % (MANUAL) 2 %; STOMATOCYTES SLIGHT
[2022-03-08 06:57] LABS: ALBUMIN 2.8 GM/DL (3.2-4.5)
[2022-03-08 06:59] LABS: CALCIUM 9.3 MG/DL (8.5-10.1)
[2022-03-08 07:00] LABS: TOTAL PROTEIN 6.3 GM/DL (6.4-8.2)
[2022-03-08 07:02] LABS: BILIRUBIN,TOTAL 0.4 MG/DL (0.1-1.0)
[2022-03-08 07:04] LABS: CREATININE SERUM 0.69 MG/DL (0.60-1.30)
--- NOTE | 2022-03-08 07:13 | PM&R Progress Note ---
Subjective HPI/CC On Admission Date Seen by Provider: Mar 08, 2022 Time Seen by Provider: 09:00 Subjective/Events-last exam 03/08/2022: Pt is doing pretty well Changed dressing Dr. Perez assessed the wound Gram negative rods in the wound so Zosyn started Increasing Toprol and Lasix per cardiology BP was 199 Discharge planning in the midst of evaluations of his needs 03/07/2022: Doing well today Volume overload resolved Labs reviewed Sugars noted Pain controlled 03/06/2022: Patient having difficulty with shortness of breath and tachypnea Oxygen placed due to hypoxia Septic work-up normal but it appears he has congestive heart failure and volume overload Cardiology consulted after he gave him Lasix 40 mg IV Supportive care will continue 03/05/2022: Patient doing well No pain reported Slept well last night No falls 03/04/2022: Late entry note inadvertently missed note Doing well IV abx maintained BM+ at bedside Melatonin gave him bad dreams 03/03/2022: Pt is doing well White blood cell count is 14 Hemoglobin is 8.9 Stump looks really good Overall doing much better 03/02/2022: Hemoglobin is 8.5 after one unit of blood yesterday White count is 16,000 Bowels moved a little bit today, will get aggressive with that Hep locking IV fluid 03/01/2022: Pt had some incontinence today Dressing was saturated Decrease BP medication for Dr. Kerns A little bit confused Will give one unit of blood today Maintain on broad spectrum antibiotics White count still elevated at 17 02/28/2022: Pt is doing well Mild hypotension not due to sepsis so will give 500 ccs bolus IV fluids 60 an hour Decrease procalcitonin Zosyn and Vancomycin maintained 02/27/2022: Pt is doing a lot better Sleeps all the time Fever and elevated white count with procalcitonin elevation prompting blood and urine cultures, chest x-ray, and empiric IV antibiotics PICC will be placed 02/26/2022: Patient settling in well Sugars lower so will hold Metformin No pain except hip and left shoulder Glucometer assessed at bedside No issues otherwise Focused Exam Lactate Level 03/06/22 08:55: Lactic Acid Level 1.28 Objective Exam Vital Signs Vital Signs Date Time Temp Pulse Resp B/P (MAP) Pulse Ox O2 Delivery O2 Flow Rate FiO2 03/08/22 20:16 36.3 76 20 149/67 (94 94 Nasal Cannula 2.00 Capillary Refill : General Appearance: No Apparent Distress, WD/WN HEENT: PERRL/EOMI, Normal ENT Inspection, Pharynx Normal Neck: Normal Inspection, Supple Respiratory: No Accessory Muscle Use, No Respiratory Distress Cardiovascular: Regular Rate, Rhythm, No Edema, No Gallop, No JVD, No Murmur, Normal Peripheral Pulses Gastrointestinal: Normal Bowel Sounds, No Organomegaly, No Pulsatile Mass, Non Tender, Soft Back: Normal Inspection, No CVA Tenderness, No Vertebral Tenderness Extremity: Other (left AKA with dressing in place C/D/I) Neurologic/Psychiatric: Alert, Oriented x3 Skin: Normal Color, Warm/Dry Lymphatic: No Adenopathy Results/Procedures Lab Laboratory Tests 03/08/22 06:25 Patient resulted labs reviewed. FIM Transfers Therapy Code Descriptions/Definitions Functional [place] Measure: 0=Not Assessed/NA 4=Minimal Assistance 1=Total Assistance 5=Supervision or Setup 2=Maximal Assistance 6=Modified [place] 3=Moderate Assistance 7=Complete IndependenceSCALE: Activities may be completed with or without assistive devices. 1-Jqytgiowvg-gxanvyr completes the activity by him/herself with no assistance from a helper. 5-Set-up or Clean-up Assistance-helper sets up or cleans up; patient completes activity. [place] assists only prior to or following the activity. 4-Supervision or Touching Assistance-helper provides verbal cues and/or touching/steadying and/or contact guard assistance as patient completes activity. Assistance may be provided throughout the activity or intermittently. 3-Partial/Moderate Assistance-helper does LESS THAN HALF the effort. [place] lifts, holds or supports trunk or limbs, but provides less than half the effort. 2-Substantial/Maximal Assistance-helper does MORE THAN HALF the effort. [place] lifts or holds trunk or limbs and provides more than half the effort. 7-Uiwdbvasb-kljyts does ALL the effort. Patient does none of the effort to complete the activity. Or, the assistance of 2 or more helpers is required for the patient to complete the activity. If activity was not attempted, code reason: 7-Patient Refused. 9-Not Applicable-not attempted and the patient did not perform the activity before the current illness, exacerbation or injury. 10-Not Attempted due to Environmental Limitations-(lack of equipment, weather restraints, etc.). 88-Not Attempted due to Medical Conditions or Safety Concerns. Roll Left to Right (QC): 4 Sit to Lying (QC): 4 Sit to Stand (QC): 1 Chair/Lpo-gf-Cgpre Xfer(QC): 1 Car Transfer (QC): 2 Gait Training Does the Patient Walk?: No and Walking Goal NOT indicated Walk 10 feet (QC): 88 Walk 50 ft with 2 Turns(QC): 88 Walk 150 ft (QC): 88 Walking 10ft/uneven surface-QC: 88 Wheelchair Training Does the Pt Use a Wheelchair?: Yes Distance: 100'x2 Wheel 50 ft with 2 turns (QC): 4 Wheel 150 ft (QC): 4 Type of Wheelchair: Manual Stair Training 1 Step (curb) (QC): 88 4 Steps (QC): 88 12 Steps (QC): 88 Balance Picking up an Object (QC): 88 ADL-Treatment Eating (QC): 6 Oral Hygiene (QC): 6 Bathing Location: L Arm, R Arm, L Upper Leg, R Upper Leg, Chest, Abdomen, Grace marcelo Area Shower/Bathe Self (QC): 1 Upper Body Dressing (QC): 3 Lower Body Dressing (QC): 1 On/Off Footwear (QC): 1 Toileting Hygiene (QC): 1 (Assist x2 for bowel movement. 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 Fall 02/21/22 resulting in left shoulder injury causing further debility and limiting ADL/independence Severe PVD PAF OAC HTN HLP DM Hypothyroidism Previous hypoglycemia required holding metformin and glimepiride but now on lower dose Constipation resolved Poor venous access requiring PICC 02/27/22 Anemia post op requiring transfusion 03/01/22 Volume overload CHF requiring IV Lasix 03/06/2022 Infected left stump started on abx Zosyn 03/08 Plan: PT OT w/c mobility Home meds 02/26/2022: Pain control Monitor sugar Hold Metformin 02/27/22: Empiric broad spectrum abx Hold Metformin and OAC PICC line 02/28/2022: IV abx Monitor closely 03/01/2022: Transfuse Broad spectrum abx 03/02/2022: Monitor hgb Broad spectrum abx 03/03/2022: IV abx Monitor hgb 03/04/2022: DC Melatonin IV abx 03/05/2022: Monitor closely Check labs in am 03/06/2022: IV Lasix Oxygen 03/07/2022: Monitor labs 03/08/22: Abx (1) S/P AKA (above knee amputation) (2) Gangrene XIOMARA DICKENS DO Mar 08, 2022 07:13
[2022-03-08 07:47] VITALS: BP 199/91
[2022-03-08] MEDS: KCL 10 MEQ TAB (MICRO K) PO SCH ×2 (08:43→21:22)
[2022-03-08] MEDS: meTOproloL SUCCINATE 50 MG (TOPROL XL) TAB PO SCH (08:43)
[2022-03-08] MEDS: PANTOPRAZOLE 40 MG (PROTONIX) TAB PO SCH (08:43)
[2022-03-08] MEDS: AMIODARONE 200 MG (CORDARONE) TAB PO SCH (08:43)
[2022-03-08] MEDS: FUROSEMIDE 40 MG (LASIX) TAB PO SCH (08:43)
[2022-03-08] MEDS: LOSARTAN 25 MG (COZAAR) TAB PO SCH (08:43)
[2022-03-08] MEDS: APIXABAN 5 MG (ELIQUIS) TABLET PO SCH ×2 (08:43→21:22)
[2022-03-08] MEDS: LACTOBACILLUS ACIDOPHILUS (PROBIOTIC) CAPSULE PO SCH ×3 (08:44→17:12)
[2022-03-08] MEDS: DOCUSATE SODIUM 100 MG (COLACE) CAP PO SCH ×2 (09:00→21:29)
[2022-03-08] MEDS: SENNA W/DOCUSATE (SENOKOT S) TABLET PO SCH ×2 (09:00→21:29)
[2022-03-08] MEDS: polyethylene glycoL POWDER 17 GM (MIRALAX) PACK PO SCH ×2 (09:00→21:29)
[2022-03-08] MEDS ORDERED: LOSARTAN 25 MG (COZAAR) TAB PO ONE (10:30)
--- NOTE | 2022-03-08 11:29 | Progress Note - Cardiology ---
Cardiology SOAP Progress Note Subjective: Lying in bed States he is feeling much better than yesterday No c/o CP, SOB or palpitations Objective: I&O/Vital Signs 03/08/22 03/08/22 03/08/22 07:23 07:47 09:00 Temp 35.5 Pulse 95 Resp 21 B/P (MAP) 199/91 (127) Pulse Ox 91 94 O2 Delivery Nasal Cannula Nasal Cannula Nasal Cannula O2 Flow Rate 3.00 3.00 2.00 Constitutional: AAO x 3, well-developed, well-nourished Respiratory: No accessory muscle use, No respiratory distress; chest expansion is symmetric, chest is bilaterally symmetric, lungs clear to auscultation Cardiovascular: regular rate-rhythm; No JVD; S1 and S2 Gastrointestional: No tender; soft, round, audible bowel sounds Extremities: other (RLE without swelling; dressing to R AKA stump which is D/I, not removed) Neurologic/Psychiatric: oriented x 3, other (moves all limbs) Skin: No rash on exposed areas, No ulcerations on exposed areas; other (abrasion to right leg) Results/Procedures: Labs Laboratory Tests 03/07/22 20:10: Glucometer 200H 03/08/22 05:47: Glucometer 166H 03/08/22 06:25: White Blood Count 14.7H, Red Blood Count 3.92L, Hemoglobin 9.7L, Hematocrit 33L, Mean Corpuscular Volume 83, Mean Corpuscular Hemoglobin 25, Mean Corpuscular Hemoglobin Concent 30L, Red Cell Distribution Width 18.6H, Platelet Count 359, Mean Platelet Volume 10.4, Immature Granulocyte % (Auto) 1, Neutrophils (%) (Auto) 88H, Lymphocytes (%) (Auto) 6L, Monocytes (%) (Auto) 4, Eosinophils (%) (Auto) 1, Basophils (%) (Auto) 0, Neutrophils # (Auto) 13.0H, Lymphocytes # (Auto) 0.9L, Monocytes # (Auto) 0.5, Eosinophils # (Auto) 0.1, Basophils # (Auto) 0.1, Immature Granulocyte # (Auto) 0.1, Neutrophils % (Manual) 90, Lymphocytes % (Manual) 8, Monocytes % (Manual) 2, Hypochromasia MODERATE, Poikilocytosis , Anisocytosis SLIGHT, Microcytosis SLIGHT, Stomatocytes SLIGHT, Sodium Level 141, Potassium Level 4.0, Chloride Level 99, Carbon Dioxide Level 31, Anion Gap 11, Blood Urea Nitrogen 10, Creatinine 0.69, Estimat Glomerular Filtration Rate 99, BUN/Creatinine Ratio 14, Glucose Level 206H, Calcium Level 9.3, Corrected Calcium 10.3H, Total Bilirubin 0.4, Aspartate Amino Transf (AST/SGOT) 19, Alanine Aminotransferase (ALT/SGPT) 21, Alkaline Phosphatase 79, Total Protein 6.3L, Albumin 2.8L 03/08/22 11:01: Glucometer 219H 03/08/22 16:20: Glucometer 166H Microbiology 03/06/22 Gram Stain - Final, Resulted 03/06/22 Wound Culture - Preliminary, Resulted Serratia marcescens Pseudomonas species 02/27/22 Blood Culture - Final, Complete No growth A/P: Assessment: Acute on chronic systolic/diastolic CHF on 03/06/22 - treated with IV diuretics - clinically compensated at this time S/P L BKA in late January 2022 at [facility] - subsequent wet gangrene necessitating L AKA by Dr. Perez on 02-23-22. Leukocytosis - managed by Dr Chappell PVD - reports PTCA bilat by Dr. Álvarez at [facility] in 2020 - reports stent x 2 to the L leg 02-03-22 (prior to BKA) by Dr. Sánchez at [facility] - reports PTCA to R leg 02-05-[address] Sánchez CAD - H/O CABG x 5 vessel [place] [address] Parry ICM - last echo at [place] reported LVEF 40% (per nursing staff, date unknown) - maintained on Losartan - Echocardiogram of 03-06-22 showed LVEF 45-50%. Grade 2 diastolic dysfunction. PASP 55-60 mmHg. Carotid dz - H/O L CEA in 2010 at [facility] - H/O chronic occlusion of the R carotid per pt report PAF - maintained on Amiodarone and Toprol - Previously on OAC with Eliquis (currently not taking) - H/O cardioversions in the past, last one >2 yrs ago HTN HLD DM 2 Anemia - undetermined etiology - management by Dr Chappell Plan: Chronic systolic/diastolic CHF - clinically compensated - continue diuretics HTN not well controlled - increase losartan Management of leukocytosis by Dr. Chappell Monitor lab DANIEL BORRERO Mar 08, 2022 11:29
--- NOTE | 2022-03-08 11:53 | Occupational Ther Daily Note ---
OT Current Status-Daily Note Subjective Pt alert, lying in bed. Pt c/o fatigue though agrees to participate in therapy. Bandage came off of stump, nrsg in room for new bandage. Co-treat with PT [id number], skills of 2 clinicians required to decrease fall risk, family education, increase mobility and strength. PT focusing on transfers, dynamic standing, B LE strengthening and w/c mobility while OT focusing on ADLs, functional mobility and B UE strengthening. Mental Status/Objective Patient Orientation: Person, Place, Time, Situation Attachments: IV, Oxygen (3L, nrsg reported that pt's O2 sats were low earlier this am) ADL-Treatment Pt completed zulay care in supine by self after set up. In supine, pt able to roll side to side to hike pants on/off hips and down legs then assist to thread R LE into pants. Mod A for supine to EOB. Doffs shirt by self then mod A to don shirt sitting EOB. Assist to start shoe then pt able to finish donning shoe with SBA for safety when leaning forward. Pt declined oral care. assists with using urinal. Therapy Code Descriptions/Definitions Functional [place] Measure: 0=Not Assessed/NA 4=Minimal Assistance 1=Total Assistance 5=Supervision or Setup 2=Maximal Assistance 6=Modified [place] 3=Moderate Assistance 7=Complete IndependenceSCALE: Activities may be completed with or without assistive devices. 2-Tannxfoecx-xxmopsb completes the activity by him/herself with no assistance from a helper. 5-Set-up or Clean-up Assistance-helper sets up or cleans up; patient completes activity. [place] assists only prior to or following the activity. 4-Supervision or Touching Assistance-helper provides verbal cues and/or touching/steadying and/or contact guard assistance as patient completes activity. Assistance may be provided throughout the activity or intermittently. 3-Partial/Moderate Assistance-helper does LESS THAN HALF the effort. [place] lifts, holds or supports trunk or limbs, but provides less than half the effort. 2-Substantial/Maximal Assistance-helper does MORE THAN HALF the effort. [place] lifts or holds trunk or limbs and provides more than half the effort. 8-Zwsmpsgos-sqpmyo does ALL the effort. Patient does none of the effort to complete the activity. Or, the assistance of 2 or more helpers is required for the patient to complete the activity. If activity was not attempted, code reason: 7-Patient Refused. 9-Not Applicable-not attempted and the patient did not perform the activity before the current illness, exacerbation or injury. 10-Not Attempted due to Environmental Limitations-(lack of equipment, weather restraints, etc.). 88-Not Attempted due to Medical Conditions or Safety Concerns. Oral Hygiene (QC): 7 Upper Body Dressing (QC): 3 (mod A) Lower Body Dressing (QC): 3 (Min A in supine) Other Treatment Pt able to propel w/c to/from room<-->gym, progressing distance before recovery break is needed. Family education on modified squat pivot transfers, demonstrated understanding though will need more practice to become safe and proficient. Pt stood 2x's at bars with mod A for sit to stand then min to mod A in standing while alternating lifting hands off of bar ~15 reps. Pt then complete B UE strengthening by using dowel haylie placed on bars for shldr strengt hening, gravity eliminated due to decrease AROM and strength in B shldrs. After therapy, pt stated he wanted to stay in w/c. in room and pt able to reach phone and call light. All needs met. OT Short Term Goals Short Term Goals Time Frame: Mar 08, 2022 Toileting hygiene: 2 Shower/bathe self: 3 Lower body dressin Putting on/taking off footwear: 3 OT Child And Family Services Worker Goals Child And Family Services Worker Goals Time Frame: Mar 24, 2022 Eating (QC): 6 Oral Hygiene (QC): 6 Toileting Hygiene (QC): 3 (bowel movements on toilet) Shower/Bathe Self (QC): 4 Upper Body Dressing (QC): 5 Lower Body Dressing (QC): 3 On/Off Footwear (QC): 4 Additional Goals: 1-Demonstrate ADL Tasks, 2-Verbalize Understanding, 3- ImproveStrength/Lalit 1=Demonstrate adherence to instructed precautions during ADL tasks. 2=Patient will verbalize/demonstrate understanding of assistive devices/modifications for ADL. 3=Patient will improve strength/tolerance for activity to enable patient to perform ADL's. OT Education/Plan Problem List/Assessment Assessment: Decreased Activ Tolerance, Decreased UE Strength, Impaired Bed Mobility, Impaired Coordination, Impaired Funct Balance, Impaired Self-Care Skills, Restricted Funct UE ROM Discharge Recommendations Plan/Recommendations: Continue POC Treatment Plan/Plan of Care Patient would benefit from OT for education, treatment and training to promote independence in ADL's, mobility, safety and/or upper extremity function for ADL's. Plan of Care: ADL Retraining, Caregiver Training, Functional Mobility, Group Exercise/Act as Ind, UE Funct Exercise/Act, W/C Management Training Treatment Duration: Mar 24, 2022 Frequency: At least 5 of 7 days/Wk (IRF) Estimated Hrs Per Day: 1.5 hours per day Rehab Potential: Guarded Time/GCodes Start Time: 08:45 Stop Time: 10:30 Total Time Billed (hr/min): 105 Billed Treatment Time 1 visit-ADL 3 (45 min), FA 2 (35 min) EX 2 (25 min) co-treat with PT [id number], individual [id number] KATERIN MONTENEGRO Mar 08, 2022 11:53
--- NOTE | 2022-03-08 12:20 | Physical Therapy Daily Note ---
PT Daily Note-Current Subjective Upon arrival, OT and RN were present changing pts dressing. Pt agrees to work with PT. Pt spouse was present. Mental Status Patient Orientation: Person, Place, Situation Attachments: Oxygen (3L) Transfers SCALE: Activities may be completed with or without assistive devices. 1-Fmrdbbcvax-eyacddz completes the activity by him/herself with no assistance from a helper. 5-Set-up or Clean-up Assistance-helper sets up or cleans up; patient completes activity. [place] assists only prior to or following the activity. 4-Supervision or Touching Assistance-helper provides verbal cues and/or touching/steadying and/or contact guard assistance as patient completes activity. Assistance may be provided throughout the activity or intermittently. 3-Partial/Moderate Assistance-helper does LESS THAN HALF the effort. [place] lifts, holds or supports trunk or limbs, but provides less than half the effort. 2-Substantial/Maximal Assistance-helper does MORE THAN HALF the effort. [place] lifts or holds trunk or limbs and provides more than half the effort. 7-Dibxmcrgs-jwmykb does ALL the effort. Patient does none of the effort to complete the activity. Or, the assistance of 2 or more helpers is required for the patient to complete the activity. If activity was not attempted, code reason: 7-Patient Refused. 9-Not Applicable-not attempted and the patient did not perform the activity before the current illness, exacerbation or injury. 10-Not Attempted due to Environmental Limitations-(lack of equipment, weather restraints, etc.). 88-Not Attempted due to Medical Conditions or Safety Concerns. Sit to Stand (QC): 3 Pt performed a stand pivot transfer with OT. OT teaches pts spouse how to perform transfer safely, PT present to help assist. Weight Bearing Full Weight Bearing Gait Training Does the Patient Walk?: No and Walking Goal IS indicated Wheelchair Training Does the Pt Use a Wheelchair?: Yes Wheel 50 ft with 2 turns (QC): 4 Wheel 150 ft (QC): 4 Type of Wheelchair: Manual Pt maneuvered his way to the gym for room, and back to room, for a BR break. Pt then turned down to the [place] with windows and back to room. Pt was slow, but controlled with w/c. Pt self corrected once off course. Exercises Seated Therapy Exercises: Sit to stand, Long arc quads, Hamstring Curls, Hip abd/add Seated Reps: 10 Treatments Pt performed Exs listed above, in w/c. PT was focused on LE strengthening, OT focused on UE strengthening, and balance at the // bars. Once PT was concluded, pt was in w/c, with spouse present. As PT exited the room, OT was present with the pt, along with pts spouse. Assessment Current Status: Fair Progress Pt would benefit from continued PT to improve on transfers, balance and strength. PT Short Term Goals Short Term Goals Time Frame: Mar 03, 2022 Roll Left & Right: 4 Sit to lyin ([place]) Lying to sitting on side of be: 3 (Batsheva) Sit to stand: 3 (modA) Chair/tqr-cs-dyjlf transfer: 3 (modA) PT Carpenter Supervisor [place] Goals Carpenter Supervisor [place] Goals PT Carpenter Supervisor [place] Goals Time Frame: Mar 17, 2022 Roll Left & Right (QC): 6 Sit to Lying (QC): 4 (SBA) Lying-Sitting on Side/Bed(QC): 4 (SBA) Sit to Stand (QC): 3 (Batsheva) Chair/Ryl-zb-Edgfj Xfer(QC): 3 (Batsheva) Toilet Transfer (QC): 3 (Batsheva) Car Transfer (QC): 3 (Batsheva) Does the Patient Walk: No and Walking Goal NOT indicated Walk 10 feet (QC): 88 Walk 50ft with 2 Turns (QC): 88 Walk 150 ft (QC): 88 Walking 10ft on Uneven Surface: 88 1 Step (curb) (QC): 88 4 Steps (QC): 88 12 Steps (QC): 88 Picking up an Object (QC): 88 Wheel 50 feet with 2 turns (QC: 6 Wheel 150 feet: 6 PT Plan Problem List Problem List: Functional Strength, Balance, Transfer Treatment/Plan Treatment Plan: Continue Plan of Care Treatment Plan: Bed Mobility, Education, Functional Activity Lalit, Functional Strength, Group Therapy, Safety, Therapeutic Exercise, Transfers Treatment Duration: Mar 17, 2022 Frequency: At least 5 of 7 days/Wk (IRF) Estimated Hrs Per Day: 1.5 hours per day Patient and/or Family Agrees t: Yes Safety Risks/Education Patient Education: Gait Training Teaching Recipient: Patient, Primary Caregiver Teaching Methods: Demonstration, Discussion Response to Teaching: Verbalize Understanding Time/GCodes Time In: 900 Time Out: 1030 Total Billed Treatment Time: 90 Total Billed Treatment 1, Ex (2) 30, FA (2) 30, NM (2) 30 YUKI RIOJAS PTA Mar 08, 2022 12:20
[2022-03-08] MEDS ORDERED: PIPERACILLIN SODIUM/TAZOBACTAM 4.5 GM in NS (IVPB) 100 ML IV NR (15:00)
--- NOTE | 2022-03-08 16:10 | Progress Note - Cardiology ---
Cardiology SOAP Progress Note Subjective: No cp or palp or syncope or shortness of breath Gen weakness and malaise present - improving No n/v/d Objective: I&O/Vital Signs 03/08/22 03/08/22 03/08/22 07:23 07:47 09:00 Temp 35.5 Pulse 95 Resp 21 B/P (MAP) 199/91 (127) Pulse Ox 91 94 O2 Delivery Nasal Cannula Nasal Cannula Nasal Cannula O2 Flow Rate 3.00 3.00 2.00 Constitutional: AAO x 3, well-developed, well-nourished Respiratory: No accessory muscle use, No respiratory distress; chest expansion is symmetric, chest is bilaterally symmetric, lungs clear to auscultation Cardiovascular: regular rate-rhythm; No JVD; S1 and S2 Gastrointestional: No tender; soft, round, audible bowel sounds Extremities: other (RLE without swelling; dressing to R AKA stump which is D/I, not removed) Neurologic/Psychiatric: oriented x 3, other (moves all limbs) Skin: No rash on exposed areas, No ulcerations on exposed areas; other (abrasion to right leg) Results/Procedures: Labs Laboratory Tests 03/07/22 20:10: Glucometer 200H 03/08/22 05:47: Glucometer 166H 03/08/22 06:25: White Blood Count 14.7H, Red Blood Count 3.92L, Hemoglobin 9.7L, Hematocrit 33L, Mean Corpuscular Volume 83, Mean Corpuscular Hemoglobin 25, Mean Corpuscular Hemoglobin Concent 30L, Red Cell Distribution Width 18.6H, Platelet Count 359, Mean Platelet Volume 10.4, Immature Granulocyte % (Auto) 1, Neutrophils (%) (Auto) 88H, Lymphocytes (%) (Auto) 6L, Monocytes (%) (Auto) 4, Eosinophils (%) (Auto) 1, Basophils (%) (Auto) 0, Neutrophils # (Auto) 13.0H, Lymphocytes # (Auto) 0.9L, Monocytes # (Auto) 0.5, Eosinophils # (Auto) 0.1, Basophils # (Auto) 0.1, Immature Granulocyte # (Auto) 0.1, Neutrophils % (Manual) 90, Lymphocytes % (Manual) 8, Monocytes % (Manual) 2, Hypochromasia MODERATE, Poikilocytosis , Anisocytosis SLIGHT, Microcytosis SLIGHT, Stomatocytes SLIGHT, Sodium Level 141, Potassium Level 4.0, Chloride Level 99, Carbon Dioxide Level 31, Anion Gap 11, Blood Urea Nitrogen 10, Creatinine 0.69, Estimat Glomerular Filtration Rate 99, BUN/Creatinine Ratio 14, Glucose Level 206H, Calcium Level 9 .3, Corrected Calcium 10.3H, Total Bilirubin 0.4, Aspartate Amino Transf (AST/SGOT) 19, Alanine Aminotransferase (ALT/SGPT) 21, Alkaline Phosphatase 79, Total Protein 6.3L, Albumin 2.8L 03/08/22 11:01: Glucometer 219H Microbiology 03/06/22 Gram Stain - Final, Resulted 03/06/22 Wound Culture - Preliminary, Resulted Serratia marcescens Pseudomonas species 02/27/22 Blood Culture - Final, Complete No growth A/P: Assessment: Acute on chronic systolic/diastolic CHF on 03/06/22 - treated with IV diuretics - clinically compensated at this time 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 Perez on 02-23-22. Leukocytosis - managed by Dr Chappell PVD - reports PTCA bilat by Dr. Álvarez at [facility] in 2020 - reports stent x 2 to the L leg 02-03-22 (prior to BKA) by Dr. Sánchez at [facility] - reports PTCA to R leg 02-05-[address] Sánchez CAD - H/O CABG x 5 vessel in [address] Parry ICM - last echo at [place] reported LVEF 40% (per nursing staff, date unknown) - maintained on Losartan - Echocardiogram of 03-06-22 showed LVEF 45-50%. Grade 2 diastolic dysfunction. PASP 55-60 mmHg. Carotid dz - H/O L CEA in 2010 at [facility] - H/O chronic occlusion of the R carotid per pt report PAF - maintained on Amiodarone and Toprol - Previously on OAC with Eliquis (currently not taking) - H/O cardioversions in the past, last one >2 yrs ago HTN HLD DM 2 Anemia - undetermined etiology - management by Dr Chappell Plan: Chronic systolic/diastolic CHF - clinically compensated - continue diuretics HTN not well controlled - increase losartan Management of leukocytosis by Dr. Chappell Monitor lab GREG,ALI MD FACP FAC CCDS Mar 08, 2022 16:10
[2022-03-08 20:16] VITALS: BP 149/67
[2022-03-08] MEDS: PIPERACILLIN SODIUM/TAZOBACTAM 4.5 GM in NS (IVPB) 100 ML IV SCH (21:17)
[2022-03-09] MEDS: PIPERACILLIN SODIUM/TAZOBACTAM 4.5 GM in NS (IVPB) 100 ML IV SCH ×3 (05:17→21:09)
--- NOTE | 2022-03-09 05:59 | PM&R Progress Note ---
Subjective HPI/CC On Admission Date Seen by Provider: Mar 09, 2022 Time Seen by Provider: 10:30 Subjective/Events-last exam 03/09/2022: Patient doing well Tolerating Zosyn Pseudomonas in wound Sugars are satisfactory 03/08/2022: Pt is doing pretty well Changed dressing Dr. Perez assessed the wound Gram negative rods in the wound so Zosyn started Increasing Toprol and Lasix per cardiology BP was 199 Discharge planning in the midst of evaluations of his needs 03/07/2022: Doing well today Volume overload resolved Labs reviewed Sugars noted Pain controlled 03/06/2022: Patient having difficulty with shortness of breath and tachypnea Oxygen placed due to hypoxia Septic work-up normal but it appears he has congestive heart failure and volume overload Cardiology consulted after he gave him Lasix 40 mg IV Supportive care will continue 03/05/2022: Patient doing well No pain reported Slept well last night No falls 03/04/2022: Late entry note inadvertently missed note Doing well IV abx maintained BM+ at bedside Melatonin gave him bad dreams 03/03/2022: Pt is doing well White blood cell count is 14 Hemoglobin is 8.9 Stump looks really good Overall doing much better 03/02/2022: Hemoglobin is 8.5 after one unit of blood yesterday White count is 16,000 Bowels moved a little bit today, will get aggressive with that Hep locking IV fluid 03/01/2022: Pt had some incontinence today Dressing was saturated Decrease BP medication for Dr. Kerns A little bit confused Will give one unit of blood today Maintain on broad spectrum antibiotics White count still elevated at 17 02/28/2022: Pt is doing well Mild hypotension not due to sepsis so will give 500 ccs bolus IV fluids 60 an hour Decrease procalcitonin Zosyn and Vancomycin maintained 02/27/2022: Pt is doing a lot better Sleeps all the time Fever and elevated white count with procalcitonin elevation prompting blood and urine cultures, chest x-ray, and empiric IV antibiotics PICC will be placed 02/26/2022: Patient settling in well Sugars lower so will hold Metformin No pain except hip and left shoulder Glucometer assessed at bedside No issues otherwise Review of Systems General: Fatigue, Malaise Focused Exam Lactate Level Objective Exam Vital Signs Vital Signs Date Time Temp Pulse Resp B/P (MAP) Pulse Ox O2 Delivery O2 Flow Rate FiO2 03/09/22 20:21 36.7 71 20 143/64 (90) 96 Nasal Cannula 2.00 Capillary Refill : General Appearance: No Apparent Distress, WD/WN, Chronically ill HEENT: PERRL/EOMI, Normal ENT Inspection, Pharynx Normal Neck: Normal Inspection, Supple Respiratory: Lungs Clear, Normal Breath Sounds, No Accessory Muscle Use, No Respiratory Distress Cardiovascular: Regular Rate, Rhythm, No Edema, No Gallop, No JVD, No Murmur, Normal Peripheral Pulses Gastrointestinal: Normal Bowel Sounds, No Organomegaly, No Pulsatile Mass, Non Tender, Soft Back: Normal Inspection, No CVA Tenderness, No Vertebral Tenderness Extremity: Other (left AKA with dressing in place C/D/I) Neurologic/Psychiatric: Alert, Oriented x3, power project manager II-XII Norm as Tested, Motor Weakness Skin: Normal Color, Warm/Dry Lymphatic: No Adenopathy Results/Procedures Lab Laboratory Tests 03/09/22 06:20 Patient resulted labs reviewed. FIM Transfers Therapy Code Descriptions/Definitions Functional [place] Measure: 0=Not Assessed/NA 4=Minimal Assistance 1=Total Assistance 5=Supervision or Setup 2=Maximal Assistance 6=Modified [place] 3=Moderate Assistance 7=Complete IndependenceSCALE: Activities may be completed with or without assistive devices. 1-Jfidqichvc-yftqjnf completes the activity by him/herself with no assistance from a helper. 5-Set-up or Clean-up Assistance-helper sets up or cleans up; patient completes activity. [place] assists only prior to or following the activity. 4-Supervision or Touching Assistance-helper provides verbal cues and/or touching/steadying and/or contact guard assistance as patient completes activity. Assistance may be provided throughout the activity or intermittently. 3-Partial/Moderate Assistance-helper does LESS THAN HALF the effort. [place] lifts, holds or supports trunk or limbs, but provides less than half the effort. 2-Substantial/Maximal Assistance-helper does MORE THAN HALF the effort. [place] lifts or holds trunk or limbs and provides more than half the effort. 4-Cutrzmfrm-hwjcqo does ALL the effort. Patient does none of the effort to complete the activity. Or, the assistance of 2 or more helpers is required for the patient to complete the activity. If activity was not attempted, code reason: 7-Patient Refused. 9-Not Applicable-not attempted and the patient did not perform the activity before the current illness, exacerbation or injury. 10-Not Attempted due to Environmental Limitations-(lack of equipment, weather restraints, etc.). 88-Not Attempted due to Medical Conditions or Safety Concerns. Roll Left to Right (QC): 4 Sit to Lying (QC): 4 Sit to Stand (QC): 3 Chair/Bru-ia-Rbnhx Xfer(QC): 1 Car Transfer (QC): 2 Gait Training Does the Patient Walk?: No and Walking Goal IS indicated Walk 10 feet (QC): 88 Walk 50 ft with 2 Turns(QC): 88 Walk 150 ft (QC): 88 Walking 10ft/uneven surface-QC: 88 Wheelchair Training Does the Pt Use a Wheelchair?: Yes Distance: 100'x2 Wheel 50 ft with 2 turns (QC): 4 Wheel 150 ft (QC): 4 Type of Wheelchair: Manual Stair Training 1 Step (curb) (QC): 88 4 Steps (QC): 88 12 Steps (QC): 88 Balance Picking up an Object (QC): 88 ADL-Treatment Eating (QC): 6 Oral Hygiene (QC): 7 Bathing Location: L Arm, R Arm, L Upper Leg, R Upper Leg, Chest, Abdomen, Perineal Area Shower/Bathe Self (QC): 1 Upper Body Dressing (QC): 3 (mod A) Lower Body Dressing (QC): 3 (Min A in supine) On/Off Footwear (QC): 1 Toileting Hygiene (QC): 1 (Assist x2 for bowel movement. 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 Fall 02/21/22 resulting in left shoulder injury causing further debility and limiting ADL/independence Severe PVD PAF OAC HTN HLP DM Hypothyroidism Previous hypoglycemia required holding metformin and glimepiride but now on lower dose Constipation resolved Poor venous access requiring PICC 02/27/22 Anemia post op requiring transfusion 03/01/22 Volume overload CHF requiring IV Lasix 03/06/2022 Infected left stump with Pseudomonas started on abx Zosyn 03/08 Plan: PT OT w/c mobility Home meds 02/26/2022: Pain control Monitor sugar Hold Metformin 02/27/22: Empiric broad spectrum abx Hold Metformin and OAC PICC line 02/28/2022: IV abx Monitor closely 03/01/2022: Transfuse Broad spectrum abx 03/02/2022: Monitor hgb Broad spectrum abx 03/03/2022: IV abx Monitor hgb 03/04/2022: DC Melatonin IV abx 03/05/2022: Monitor closely Check labs in am 03/06/2022: IV Lasix Oxygen 03/07/2022: Monitor labs 03/08/22: Abx 03/09/2022: Zosyn (1) S/P AKA (above knee amputation) (2) Gangrene XIOMARA DICKENS DO Mar 09, 2022 05:59
[2022-03-09] MEDS: GLIMEPIRIDE 1 MG (AMARYL) TAB PO SCH (06:04)
[2022-03-09] MEDS: LEVOTHYROXINE 100 MCG (LEVOTHROID) TAB PO SCH (06:05)
[2022-03-09] MEDS: inSUlin ASPART (NovoLOG) 1 UNIT/0.01 ML (CHARGE PER UNIT) SC SCH ×4 (06:06→21:09)
[2022-03-09 06:36] LABS: BASOPHILS # (AUTO) 0.1 10^3/uL (0.0-0.1); BASOPHILS % (AUTO) 0 % (0-10); EOSINOPHILS # (AUTO) 0.1 10^3/uL (0.0-0.3); EOSINOPHILS % (AUTO) 1 % (0-10); HEMATOCRIT 32 % (40-54); HEMOGLOBIN 9.3 g/dL (13.3-17.7); LYMPHOCYTES # (AUTO) 0.8 10^3/uL (1.0-4.0); LYMPHOCYTES % (AUTO) 6 % (12-44); MEAN CORPUSCULAR HEMOGLOBIN 24 pg (25-34); MEAN CORPUSCULAR HGB CONC 29 g/dL (32-36); MEAN CORPUSCULAR VOLUME 83 fL (80-99); MEAN PLATELET VOLUME 10.6 fL (9.0-12.2); MONOCYTES # (AUTO) 0.5 10^3/uL (0.0-1.0); MONOCYTES % (AUTO) 4 % (0-12); NEUTROPHILS # (AUTO) 12.4 10^3/uL (1.8-7.8); NEUTROPHILS % (AUTO) 89 % (42-75); PLATELET COUNT 355 10^3/uL (130-400)
[2022-03-09 06:52] LABS: ALBUMIN 2.7 GM/DL (3.2-4.5); POTASSIUM 3.7 MMOL/L (3.6-5.0)
[2022-03-09 06:53] LABS: CALCIUM 9.1 MG/DL (8.5-10.1)
[2022-03-09 06:54] LABS: TOTAL PROTEIN 6.1 GM/DL (6.4-8.2)
[2022-03-09 06:56] LABS: BILIRUBIN,TOTAL 0.4 MG/DL (0.1-1.0)
[2022-03-09 06:58] LABS: CREATININE SERUM 0.76 MG/DL (0.60-1.30)
[2022-03-09 07:23] VITALS: BP 144/65
[2022-03-09] MEDS: FUROSEMIDE 40 MG (LASIX) TAB PO SCH (08:24)
[2022-03-09] MEDS: meTOproloL SUCCINATE 50 MG (TOPROL XL) TAB PO SCH (08:24)
[2022-03-09] MEDS: AMIODARONE 200 MG (CORDARONE) TAB PO SCH (08:24)
[2022-03-09] MEDS: LACTOBACILLUS ACIDOPHILUS (PROBIOTIC) CAPSULE PO SCH ×3 (08:24→17:40)
[2022-03-09] MEDS: APIXABAN 5 MG (ELIQUIS) TABLET PO SCH ×2 (08:24→20:15)
[2022-03-09] MEDS: PANTOPRAZOLE 40 MG (PROTONIX) TAB PO SCH (08:24)
[2022-03-09] MEDS: SENNA W/DOCUSATE (SENOKOT S) TABLET PO SCH ×2 (08:25→20:19)
[2022-03-09] MEDS: LOSARTAN 50 MG (COZAAR) TAB PO SCH (08:25)
[2022-03-09] MEDS: DOCUSATE SODIUM 100 MG (COLACE) CAP PO SCH ×2 (08:25→20:18)
[2022-03-09] MEDS: KCL 10 MEQ TAB (MICRO K) PO SCH ×2 (08:25→20:15)
[2022-03-09] MEDS: polyethylene glycoL POWDER 17 GM (MIRALAX) PACK PO SCH ×2 (08:25→20:18)
--- NOTE | 2022-03-09 09:54 | Physical Therapy Daily Note ---
PT Daily Note-Current Subjective Patient in bed pre tx, agrees to PT, voices no complaints of pain at rest. Will be co-treating with OT due to poor patient mobility, strength, endurance, severe debility, coordinate UE and LE during activity, safety and reduce risk of falls. Appearance Patient in WC at bedside post tx working with wound care nurse. Mental Status Patient Orientation: Person, Place, Situation Attachments: Oxygen Transfers SCALE: Activities may be completed with or without assistive devices. 1-Jgewwtuqce-oiqiidu completes the activity by him/herself with no assistance from a helper. 5-Set-up or Clean-up Assistance-helper sets up or cleans up; patient completes activity. [place] assists only prior to or following the activity. 4-Supervision or Touching Assistance-helper provides verbal cues and/or touching/steadying and/or contact guard assistance as patient completes activity. Assistance may be provided throughout the activity or intermittently. 3-Partial/Moderate Assistance-helper does LESS THAN HALF the effort. [place] lifts, holds or supports trunk or limbs, but provides less than half the effort. 2-Substantial/Maximal Assistance-helper does MORE THAN HALF the effort. [place] lifts or holds trunk or limbs and provides more than half the effort. 8-Aameijqmg-hrdckq does ALL the effort. Patient does none of the effort to complete the activity. Or, the assistance of 2 or more helpers is required for the patient to complete the activity. If activity was not attempted, code reason: 7-Patient Refused. 9-Not Applicable-not attempted and the patient did not perform the activity before the current illness, exacerbation or injury. 10-Not Attempted due to Environmental Limitations-(lack of equipment, weather restraints, etc.). 88-Not Attempted due to Medical Conditions or Safety Concerns. Roll Left & Right (QC): 4 Lying to Sitting/Side of Bed(Q: 3 Sit to Stand (QC): 2 Chair/Rqp-jg-Osgkx Xfer(QC): 2 Patient needs min assist for supine to sit, max assist to transfer to shower chair using rolling walker, after getting in shower chair he has to stand again to get his shorts off, after sitting back down he undresses completely and OT preps patient for shower, patient is wheeled to shower. After shower patient transfers to , he cannot stand at this time due to fatigue and a therapist performs stand pivot transfer with max assist therapist in front. Weight Bearing Full Weight Bearing Treatments PT performed bed mobility and transfers, standing, positioning and safety during bathing and dressing, OT performed bathing, dressing, ADL's, UE positioning and safety during activity. Assessment Current Status: Poor Progress no change in mobility, patient fatigues quickly and can only really perform a st and pivot transfer using a walker about one time PT Short Term Goals Short Term Goals Time Frame: Mar 03, 2022 Roll Left & Right: 4 Sit to lyin (Batsheva) Lying to sitting on side of be: 3 (Batsheva) Sit to stand: 3 (modA) Chair/xvg-ri-lpkez transfer: 3 (modA) PT Mcc Goals Licensed Plumber Goals PT Licensed Plumber Goals Time Frame: Mar 17, 2022 Roll Left & Right (QC): 6 Sit to Lying (QC): 4 (SBA) Lying-Sitting on Side/Bed(QC): 4 (SBA) Sit to Stand (QC): 3 (Batsheva) Chair/Lyk-dl-Ifzte Xfer(QC): 3 (Batsheva) Toilet Transfer (QC): 3 (Batsheva) Car Transfer (QC): 3 (Batsheva) Does the Patient Walk: No and Walking Goal NOT indicated Walk 10 feet (QC): 88 Walk 50ft with 2 Turns (QC): 88 Walk 150 ft (QC): 88 Walking 10ft on Uneven Surface: 88 1 Step (curb) (QC): 88 4 Steps (QC): 88 12 Steps (QC): 88 Picking up an Object (QC): 88 Wheel 50 feet with 2 turns (QC: 6 Wheel 150 feet: 6 PT Plan Problem List Problem List: Activity Tolerance, Functional Strength, Safety, Balance, Transfer, Bed Mobility, ROM Treatment/Plan Treatment Plan: Continue Plan of Care Treatment Plan: Bed Mobility, Education, Functional Activity Lalit, Functional Strength, Group Therapy, Safety, Therapeutic Exercise, Transfers Treatment Duration: Mar 17, 2022 Frequency: At least 5 of 7 days/Wk (IRF) Estimated Hrs Per Day: 1.5 hours per day Patient and/or Family Agrees t: Yes Safety Risks/Education Patient Education: Transfer Techniques, Correct Positioning, Safety Issues Teaching Recipient: Patient Teaching Methods: Demonstration, Discussion Response to Teaching: Reinforcement Needed Time/GCodes Time In: 0900 Time Out: 1000 Total Billed Treatment Time: 60 Total Billed Treatment 1 visit FA 60' co-treated with OT for 60 min JESSICA FOX PT Mar 09, 2022 09:54
--- NOTE | 2022-03-09 12:35 | Occupational Ther Daily Note ---
OT Current Status-Daily Note Subjective Pt sleeping in bed, woke to name. Pt agrees to therapy. Pt c/o pain though does not request pain meds. Co-treat with PT [id number], skills of 2 clinicians required to decrease falls and increase mobility. PT focusing on transfers and standing while OT focusing on ADLs and w/c mobility. Mental Status/Objective Patient Orientation: Person, Place, Time, Situation Attachments: IV ADL-Treatment Discussed continuing family training for transfers and benjie lift with . Pt agrees to shower. Min A for supine to EOB. Mod A for transfer using FWW to rolling shower chair. Assist to doff/don pants due to time constraints. Min A for upper body dressing. Using shower chair with cutout for shower, pt able to cleanse all areas except buttock and underarms. Independent with oral care. Nrsg in room to change stump dressing after shower. Pt then working on w/c mobi lity to increase B UE strength and functional mobility for daily functional tasks. After session, pt sitting in recliner with call light/phone in reach. All needs met in room. Therapy Code Descriptions/Definitions Functional [place] Measure: 0=Not Assessed/NA 4=Minimal Assistance 1=Total Assistance 5=Supervision or Setup 2=Maximal Assistance 6=Modified [place] 3=Moderate Assistance 7=Complete IndependenceSCALE: Activities may be completed with or without assistive devices. 9-Xqcseiihjq-jvnextf completes the activity by him/herself with no assistance from a helper. 5-Set-up or Clean-up Assistance-helper sets up or cleans up; patient completes activity. [place] assists only prior to or following the activity. 4-Supervision or Touching Assistance-helper provides verbal cues and/or touching/steadying and/or contact guard assistance as patient completes activity. Assistance may be provided throughout the activity or intermittently. 3-Partial/Moderate Assistance-helper does LESS THAN HALF the effort. [place] lifts, holds or supports trunk or limbs, but provides less than half the effort. 2-Substantial/Maximal Assistance-helper does MORE THAN HALF the effort. [place] lifts or holds trunk or limbs and provides more than half the effort. 4-Uwgzwbuqy-qbnfbs does ALL the effort. Patient does none of the effort to complete the activity. Or, the assistance of 2 or more helpers is required for the patient to complete the activity. If activity was not attempted, code reason: 7-Patient Refused. 9-Not Applicable-not attempted and the patient did not perform the activity before the current illness, exacerbation or injury. 10-Not Attempted due to Environmental Limitations-(lack of equipment, weather restraints, etc.). 88-Not Attempted due to Medical Conditions or Safety Concerns. Oral Hygiene (QC): 6 Shower/Bathe Self (QC): 3 Upper Body Dressing (QC): 3 OT Short Term Goals Short Term Goals Time Frame: Mar 08, 2022 Toileting hygiene: 2 Shower/bathe self: 3 Lower body dressin Putting on/taking off footwear: 3 OT Upholstery Sewer Goals Upholstery Sewer Goals Time Frame: Mar 24, 2022 Eating (QC): 6 Oral Hygiene (QC): 6 Toileting Hygiene (QC): 3 (bowel movements on toilet) Shower/Bathe Self (QC): 4 Upper Body Dressing (QC): 5 Lower Body Dressing (QC): 3 On/Off Footwear (QC): 4 Additional Goals: 1-Demonstrate ADL Tasks, 2-Verbalize Understanding, 3- ImproveStrength/Lalit 1=Demonstrate adherence to instructed precautions during ADL tasks. 2=Patient will verbalize/demonstrate understanding of assistive devices/modif ications for ADL. 3=Patient will improve strength/tolerance for activity to enable patient to perform ADL's. OT Education/Plan Problem List/Assessment Assessment: Decreased Activ Tolerance, Decreased UE Strength, Impaired Bed Mobility, Impaired Funct Balance, Impaired Self-Care Skills, Restricted Funct UE ROM Discharge Recommendations Plan/Recommendations: Continue POC Treatment Plan/Plan of Care Patient would benefit from OT for education, treatment and training to promote independence in ADL's, mobility, safety and/or upper extremity function for ADL's. Plan of Care: ADL Retraining, Caregiver Training, Functional Mobility, Group Exercise/Act as Ind, UE Funct Exercise/Act, W/C Management Training Treatment Duration: Mar 24, 2022 Frequency: At least 5 of 7 days/Wk (IRF) Estimated Hrs Per Day: 1.5 hours per day Rehab Potential: Guarded Time/GCodes Start Time: 09:00 Stop Time: 10:30 Total Time Billed (hr/min): 90 Billed Treatment Time 1 visit-ADL 4 (60 min) EX 2 (30 min) co-treat with PT 60 min, individual 30 min KATERIN MONTENEGRO Mar 09, 2022 12:35
--- NOTE | 2022-03-09 12:59 | Physical Therapy Daily Note ---
PT Daily Note-Current Subjective Patient in WC at bedside pre tx, agrees to PT, voices no complaints of pain. Appearance Patient in WC at bedside post tx with nurse call, phone, tray, all needs met. Mental Status Patient Orientation: Person, Place, Situation Transfers SCALE: Activities may be completed with or without assistive devices. 1-Unohstvdzi-ikehmco completes the activity by him/herself with no assistance from a helper. 5-Set-up or Clean-up Assistance-helper sets up or cleans up; patient completes activity. [place] assists only prior to or following the activity. 4-Supervision or Touching Assistance-helper provides verbal cues and/or touching/steadying and/or contact guard assistance as patient completes activity. Assistance may be provided throughout the activity or intermittently. 3-Partial/Moderate Assistance-helper does LESS THAN HALF the effort. [place] lifts, holds or supports trunk or limbs, but provides less than half the effort. 2-Substantial/Maximal Assistance-helper does MORE THAN HALF the effort. [place] lifts or holds trunk or limbs and provides more than half the effort. 1-Uxltxsmkn-qqwgir does ALL the effort. Patient does none of the effort to complete the activity. Or, the assistance of 2 or more helpers is required for the patient to complete the activity. If activity was not attempted, code reason: 7-Patient Refused. 9-Not Applicable-not attempted and the patient did not perform the activity before the current illness, exacerbation or injury. 10-Not Attempted due to Environmental Limitations-(lack of equipment, weather restraints, etc.). 88-Not Attempted due to Medical Conditions or Safety Concerns. Weight Bearing Full Weight Bearing Wheelchair Training Does the Pt Use a Wheelchair?: Yes Wheel 50 ft with 2 turns (QC): 4 Type of Wheelchair: Manual 120'x2, very slow, occasional rest break Exercises Seated Therapy Exercises: Ankle pumps (RLE), Long arc quads (RLE), Hip flexion, Hip abd/add (with ball and YTB) Seated Reps: 20 Treatments WC mobility, LE exercise Assessment Current Status: Poor Progress patient very fatigued today PT Short Term Goals Short Term Goals Time Frame: Mar 03, 2022 Roll Left & Right: 4 Sit to lyin (Batsheva) Lying to sitting on side of be: 3 (Batsheva) Sit to stand: 3 (modA) Chair/tps-mh-[place]uya transfer: 3 (modA) PT Arts And Crafts Teacher Goals Arts And Crafts Teacher Goals PT Detention Goals Time Frame: Mar 17, 2022 Roll Left & Right (QC): 6 Sit to Lying (QC): 4 (SBA) Lying-Sitting on Side/Bed(QC): 4 (SBA) Sit to Stand (QC): 3 (Batsheva) Chair/Kfq-on-Vwdhg Xfer(QC): 3 (Batsheva) Toilet Transfer (QC): 3 (Batsheva) Car Transfer (QC): 3 (Batsheva) Does the Patient Walk: No and Walking Goal NOT indicated Walk 10 feet (QC): 88 Walk 50ft with 2 Turns (QC): 88 Walk 150 ft (QC): 88 Walking 10ft on Uneven Surface: 88 1 Step (curb) (QC): 88 4 Steps (QC): 88 12 Steps (QC): 88 Picking up an Object (QC): 88 Wheel 50 feet with 2 turns (QC: 6 Wheel 150 feet: 6 PT Plan Problem List Problem List: Activity Tolerance, Functional Strength, Safety, Balance, Transfer, Bed Mobility, ROM Treatment/Plan Treatment Plan: Continue Plan of Care Treatment Plan: Bed Mobility, Education, Functional Activity Lalit, Functional Strength, Group Therapy, Safety, Therapeutic Exercise, Transfers Treatment Duration: Mar 17, 2022 Frequency: At least 5 of 7 days/Wk (IRF) Estimated Hrs Per Day: 1.5 hours per day Patient and/or Family Agrees t: Yes Safety Risks/Education Patient Education: Correct Positioning, Safety Issues Teaching Recipient: Patient Teaching Methods: Demonstration, Discussion Response to Teaching: Reinforcement Needed Time/GCodes Time In: 1230 Time Out: 1300 Total Billed Treatment Time: 30 Total Billed Treatment 1 visit EX 15' FA 15' JESSICA FOX PT Mar 09, 2022 12:59
[2022-03-09 20:21] VITALS: BP 143/64
[2022-03-10] MEDS: PIPERACILLIN SODIUM/TAZOBACTAM 4.5 GM in NS (IVPB) 100 ML IV SCH ×3 (04:49→21:04)
[2022-03-10] MEDS: GLIMEPIRIDE 1 MG (AMARYL) TAB PO SCH (06:00)
[2022-03-10] MEDS: LEVOTHYROXINE 100 MCG (LEVOTHROID) TAB PO SCH (06:00)
[2022-03-10] MEDS: inSUlin ASPART (NovoLOG) 1 UNIT/0.01 ML (CHARGE PER UNIT) SC SCH ×4 (06:04→21:02)
--- NOTE | 2022-03-10 06:26 | PM&R Progress Note ---
Subjective HPI/CC On Admission Date Seen by Provider: Mar 10, 2022 Time Seen by Provider: 12:30 Subjective/Events-last exam 03/10/2022: Pt is doing really well Blood sugar improved Lortab used pretty much all the time for pain Bowels moved on 03/08/22 03/09/2022: Patient doing well Tolerating Zosyn Pseudomonas in wound Sugars are satisfactory 03/08/2022: Pt is doing pretty well Changed dressing Dr. Perez assessed the wound Gram negative rods in the wound so Zosyn started Increasing Toprol and Lasix per cardiology BP was 199 Discharge planning in the midst of evaluations of his needs 03/07/2022: Doing well today Volume overload resolved Labs reviewed Sugars noted Pain controlled 03/06/2022: Patient having difficulty with shortness of breath and tachypnea Oxygen placed due to hypoxia Septic work-up normal but it appears he has congestive heart failure and volume overload Cardiology consulted after he gave him Lasix 40 mg IV Supportive care will continue 03/05/2022: Patient doing well No pain reported Slept well last night No falls 03/04/2022: Late entry note inadvertently missed note Doing well IV abx maintained BM+ at bedside Melatonin gave him bad dreams 03/03/2022: Pt is doing well White blood cell count is 14 Hemoglobin is 8.9 Stump looks really good Overall doing much better 03/02/2022: Hemoglobin is 8.5 after one unit of blood yesterday White count is 16,000 Bowels moved a little bit today, will get aggressive with that Hep locking IV fluid 03/01/2022: Pt had some incontinence today Dressing was saturated Decrease BP medication for Dr. Kerns A little bit confused Will give one unit of blood today Maintain on broad spectrum antibiotics White count still elevated at 17 02/28/2022: Pt is doing well Mild hypotension not due to sepsis so will give 500 ccs bolus IV fluids 60 an hour Decrease procalcitonin Zosyn and Vancomycin maintained 02/27/2022: Pt is doing a lot better Sleeps all the time Fever and elevated white count with procalcitonin elevation prompting blood and urine cultures, chest x-ray, and empiric IV antibiotics PICC will be placed 02/26/2022: Patient settling in well Sugars lower so will hold Metformin No pain except hip and left shoulder Glucometer assessed at bedside No issues otherwise Review of Systems General: Fatigue, Malaise Objective Exam Vital Signs Vital Signs Date Time Temp Pulse Resp B/P (MAP) Pulse Ox O2 Delivery O2 Flow Rate FiO2 03/10/22 20:35 36.7 69 16 134/63 (86) 94 Nasal Cannula 1.50 Capillary Refill : General Appearance: No Apparent Distress, WD/WN, Chronically ill HEENT: PERRL/EOMI, Normal ENT Inspection, Pharynx Normal Neck: Normal Inspection, Supple Respiratory: Lungs Clear, Normal Breath Sounds, No Accessory Muscle Use, No Respiratory Distress Cardiovascular: Regular Rate, Rhythm, No Edema, No Gallop, No JVD, No Murmur, Normal Peripheral Pulses Gastrointestinal: Normal Bowel Sounds, No Organomegaly, No Pulsatile Mass, Non Tender, Soft Back: Normal Inspection, No CVA Tenderness, No Vertebral Tenderness Extremity: Other (left AKA with dressing in place C/D/I) Neurologic/Psychiatric: Alert, Oriented x3, content strategist II-XII Norm as Tested, Motor Weakness Skin: Normal Color, Warm/Dry Lymphatic: No Adenopathy Results/Procedures Lab Patient resulted labs reviewed. FIM Transfers Therapy Code Descriptions/Definitions Functional [place] Measure: 0=Not Assessed/NA 4=Minimal Assistance 1=Total Assistance 5=Supervision or Setup 2=Maximal Assistance 6=Modified [place] 3=Moderate Assistance 7=Complete IndependenceSCALE: Activities may be completed with or without assistive devices. 0-Jgfwrnmcfe-oeeythl completes the activity by him/herself with no assistance from a helper. 5-Set-up or Clean-up Assistance-helper sets up or cleans up; patient completes activity. [place] assists only prior to or following the activity. 4-Supervision or Touching Assistance-helper provides verbal cues and/or touching/steadying and/or contact guard assistance as patient completes activity. Assistance may be provided throughout the activity or intermittently. 3-Partial/Moderate Assistance-helper does LESS THAN HALF the effort. [place] li fts, holds or supports trunk or limbs, but provides less than half the effort. 2-Substantial/Maximal Assistance-helper does MORE THAN HALF the effort. [place] lifts or holds trunk or limbs and provides more than half the effort. 1-Nxckbywcs-cdpytn does ALL the effort. Patient does none of the effort to complete the activity. Or, the assistance of 2 or more helpers is required for the patient to complete the activity. If activity was not attempted, code reason: 7-Patient Refused. 9-Not Applicable-not attempted and the patient did not perform the activity before the current illness, exacerbation or injury. 10-Not Attempted due to Environmental Limitations-(lack of equipment, weather restraints, etc.). 88-Not Attempted due to Medical Conditions or Safety Concerns. Roll Left to Right (QC): 4 Sit to Lying (QC): 4 Sit to Stand (QC): 2 Chair/Cyi-jm-Sbtse Xfer(QC): 2 Car Transfer (QC): 2 Gait Training Does the Patient Walk?: No and Walking Goal IS indicated Walk 10 feet (QC): 88 Walk 50 ft with 2 Turns(QC): 88 Walk 150 ft (QC): 88 Walking 10ft/uneven surface-QC: 88 Wheelchair Training Does the Pt Use a Wheelchair?: Yes Distance: 100'x2 Wheel 50 ft with 2 turns (QC): 4 Wheel 150 ft (QC): 4 Type of Wheelchair: Manual Stair Training 1 Step (curb) (QC): 88 4 Steps (QC): 88 12 Steps (QC): 88 Balance Picking up an Object (QC): 88 ADL-Treatment Eating (QC): 6 Oral Hygiene (QC): 6 Bathing Location: L Arm, R Arm, L Upper Leg, R Upper Leg, Chest, Abdomen, Perineal Area Shower/Bathe Self (QC): 3 Upper Body Dressing (QC): 3 Lower Body Dressing (QC): 3 (Min A in supine) On/Off Footwear (QC): 1 Toileting Hygiene (QC): 1 (Assist x2 for bowel movement. 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 Fall 02/21/22 resulting in left shoulder injury causing further debility and limiting ADL/independence Severe PVD PAF OAC HTN HLP DM Hypothyroidism Previous hypoglycemia required holding metformin and glimepiride but now on lower dose Constipation resolved Poor venous access requiring PICC 02/27/22 Anemia post op requiring transfusion 03/01/22 Volume overload CHF requiring IV Lasix 03/06/2022 Infected left stump with Pseudomonas started on abx Zosyn 03/08 Plan: PT OT w/c mobility Home meds 02/26/2022: Pain control Monitor sugar Hold Metformin 02/27/22: Empiric broad spectrum abx Hold Metformin and OAC PICC line 02/28/2022: IV abx Monitor closely 03/01/2022: Transfuse Broad spectrum abx 03/02/2022: Monitor hgb Broad spectrum abx 03/03/2022: IV abx Monitor hgb 03/04/2022: DC Melatonin IV abx 03/05/2022: Monitor closely Check labs in am 03/06/2022: IV Lasix Oxygen 03/07/2022: Monitor labs 03/08/22: Abx 03/09/2022: Zosyn 03/10/2022: Monitor pain (1) S/P AKA (above knee amputation) (2) Gangrene XIOMARA DICKENS DO Mar 10, 2022 06:26
[2022-03-10] MEDS ORDERED: CYANOCOBALAMIN INJ 1000 MCG/ML IM ONE (06:30)
[2022-03-10 08:00] VITALS: BP 134/61
[2022-03-10] MEDS: AMIODARONE 200 MG (CORDARONE) TAB PO SCH (08:56)
[2022-03-10] MEDS: KCL 10 MEQ TAB (MICRO K) PO SCH ×2 (08:56→21:03)
[2022-03-10] MEDS: LACTOBACILLUS ACIDOPHILUS (PROBIOTIC) CAPSULE PO SCH ×3 (08:56→17:38)
[2022-03-10] MEDS: LOSARTAN 50 MG (COZAAR) TAB PO SCH (08:56)
[2022-03-10] MEDS: PANTOPRAZOLE 40 MG (PROTONIX) TAB PO SCH (08:56)
[2022-03-10] MEDS: meTOproloL SUCCINATE 50 MG (TOPROL XL) TAB PO SCH (08:56)
[2022-03-10] MEDS: APIXABAN 5 MG (ELIQUIS) TABLET PO SCH ×2 (08:56→21:03)
[2022-03-10] MEDS: IRON SUCROSE 200 MG/10 ML (VENOFER) VIAL IV SCH (08:57)
[2022-03-10] MEDS: FUROSEMIDE 40 MG (LASIX) TAB PO SCH (08:57)
[2022-03-10] MEDS: SENNA W/DOCUSATE (SENOKOT S) TABLET PO SCH ×2 (09:13→20:08)
[2022-03-10] MEDS: DOCUSATE SODIUM 100 MG (COLACE) CAP PO SCH ×2 (09:13→20:07)
[2022-03-10] MEDS: polyethylene glycoL POWDER 17 GM (MIRALAX) PACK PO SCH ×2 (09:13→20:08)
--- NOTE | 2022-03-10 10:00 | Physical Therapy Daily Note ---
PT Daily Note-Current Subjective Patient in bed pre tx, agrees to PT, voices no complaints of pain at rest. Will be co-treating with OT due to poor patient mobility, strength, endurance, severe debility, coordinate UE and LE with activity, safety and reduce risk of falls. is here for benjie training. Appearance Patient in WC at bedside post tx with nurse call, phone, tray, all needs met. Mental Status Patient Orientation: Person, Place, Situation Attachments: Oxygen Transfers SCALE: Activities may be completed with or without assistive devices. 9-Ogcncdowta-abmatax completes the activity by him/herself with no assistance from a helper. 5-Set-up or Clean-up Assistance-helper sets up or cleans up; patient completes activity. [place] assists only prior to or following the activity. 4-Supervision or Touching Assistance-helper provides verbal cues and/or touchi ng/steadying and/or contact guard assistance as patient completes activity. Assistance may be provided throughout the activity or intermittently. 3-Partial/Moderate Assistance-helper does LESS THAN HALF the effort. [place] lifts, holds or supports trunk or limbs, but provides less than half the effort. 2-Substantial/Maximal Assistance-helper does MORE THAN HALF the effort. [place] lifts or holds trunk or limbs and provides more than half the effort. 4-Whjkinppm-vxjksy does ALL the effort. Patient does none of the effort to complete the activity. Or, the assistance of 2 or more helpers is required for the patient to complete the activity. If activity was not attempted, code reason: 7-Patient Refused. 9-Not Applicable-not attempted and the patient did not perform the activity before the current illness, exacerbation or injury. 10-Not Attempted due to Environmental Limitations-(lack of equipment, weather restraints, etc.). 88-Not Attempted due to Medical Conditions or Safety Concerns. Roll Left & Right (QC): 4 Sit to Lying (QC): 4 Lying to Sitting/Side of Bed(Q: 3 Sit to Stand (QC): 1 Chair/Sko-yg-Tubby Xfer(QC): 1 Patient needs min assist for supine to sit, patient requires the head of the bed to be elevated for supine to sit due to his shoulder impairments, otherwise he is dependent for it. Patient lays back down and is educated on how to get the benjie sling under him and how to operate the benjie and she successfully transfers patient to the (with therapist direction). Weight Bearing Full Weight Bearing Wheelchair Training Does the Pt Use a Wheelchair?: Yes Wheel 50 ft with 2 turns (QC): 4 Type of Wheelchair: Manual 120'x2, very slow, needs occasional rest breaks Exercises Standin way Ex=Flex, Abd, Ext (x10, LLE), Mini squats (x5) standing in parallel bars x4 for about 30 sec each time, 2 of those times patient practiced letting go of parallel bars with alternate hands and reaching across to shoulders Treatments PT performed bed mobility and transfers, standing, family education, standing, LE exercise, OT performed UE positioning and safety during activity, family education, UE exercise. Assessment Current Status: Poor Progress Patient will need a benjie lift for family to use at home. Patient has too much difficulty with transfers without the use of a skilled clinician to decrease risk of falls and the amount of lifting required would also increase risk of injury for helper. The patient may otherwise be confined to bed due to difficulty of transfers. PT Short Term Goals Short Term Goals Time Frame: Mar 03, 2022 Roll Left & Right: 4 Sit to lyin (Batsheva) Lying to sitting on side of be: 3 (Batsheva) Sit to stand: 3 (modA) Chair/xej-fs-hkdds transfer: 3 (modA) PT Coordinator Of Library Services Goals Care Home Goals PT Care Home Goals Time Frame: Mar 17, 2022 Roll Left & Right (QC): 6 Sit to Lying (QC): 4 (SBA) Lying-Sitting on Side/Bed(QC): 4 (SBA) Sit to Stand (QC): 3 (Batsheva) Chair/Xxc-pm-Pglcb Xfer(QC): 3 (Batsheva) Toilet Transfer (QC): 3 (Batsheva) Car Transfer (QC): 3 (Batsheva) Does the Patient Walk: No and Walking Goal NOT indicated Walk 10 feet (QC): 88 Walk 50ft with 2 Turns (QC): 88 Walk 150 ft (QC): 88 Walking 10ft on Uneven Surface: 88 1 Step (curb) (QC): 88 4 Steps (QC): 88 12 Steps (QC): 88 Picking up an Object (QC): 88 Wheel 50 feet with 2 turns (QC: 6 Wheel 150 feet: 6 PT Plan Problem List Problem List: Activity Tolerance, Functional Strength, Safety, Balance, Gait, Transfer, Bed Mobility, ROM Treatment/Plan Treatment Plan: Continue Plan of Care Treatment Plan: Bed Mobility, Education, Functional Activity Lalit, Functional Strength, Group Therapy, Safety, Therapeutic Exercise, Transfers Treatment Duration: Mar 17, 2022 Frequency: At least 5 of 7 days/Wk (IRF) Estimated Hrs Per Day: 1.5 hours per day Patient and/or Family Agrees t: Yes Safety Risks/Education Patient Education: Transfer Techniques, Correct Positioning, W/C Management, Safety Issues Teaching Recipient: Patient, Family Teaching Methods: Demonstration, Discussion Response to Teaching: Verbalize Understanding, Return Demonstration, Reinforcement Needed Time/GCodes Time In: 0900 Time Out: 1000 Total Billed Treatment Time: 60 Total Billed Treatment 1 visit FA 60' co-treated for 60' JESSICA OFX PT Mar 10, 2022 10:00
--- NOTE | 2022-03-10 10:02 | Occupational Ther Daily Note ---
OT Current Status-Daily Note Subjective Pt dozing in bed, woke easily to name. Pt agrees to therapy. Pt c/o fatigue and L hip. Co-treat with PT([id number]), skills of 2 clinicians required to decrease fall risk and increase all mobility. PT focusing on transfers, w/c mobility and standing while OT focusing on ADLs, B UE placement with standing. Mental Status/Objective Patient Orientation: Person, Place, Time, Situation Attachments: IV ADL-Treatment Therapy Code Descriptions/Definitions Functional [place] Measure: 0=Not Assessed/NA 4=Minimal Assistance 1=Total Assistance 5=Supervision or Setup 2=Maximal Assistance 6=Modified [place] 3=Moderate Assistance 7=Complete IndependenceSCALE: Activities may be completed with or without assistive devices. 8-Piaovdmkld-gujgbix completes the activity by him/herself with no assistance from a helper. 5-Set-up or Clean-up Assistance-helper sets up or cleans up; patient completes activity. [place] assists only prior to or following the activity. 4-Supervision or Touching Assistance-helper provides verbal cues and/or touching/steadying and/or contact guard assistance as patient completes activity. Assistance may be provided throughout the activity or intermittently. 3-Partial/Moderate Assistance-helper does LESS THAN HALF the effort. [place] lifts, holds or supports trunk or limbs, but provides less than half the effort. 2-Substantial/Maximal Assistance-helper does MORE THAN HALF the effort. [place] lifts or holds trunk or limbs and provides more than half the effort. 7-Ijioctpsn-vqyjyn does ALL the effort. Patient does none of the effort to complete the activity. Or, the assistance of 2 or more helpers is required for the patient to complete the activity. If activity was not attempted, code reason: 7-Patient Refused. 9-Not Applicable-not attempted and the patient did not perform the activity before the current illness, exacerbation or injury. 10-Not Attempted due to Environmental Limitations-(lack of equipment, weather restraints, etc.). 88-Not Attempted due to Medical Conditions or Safety Concerns. On/Off Footwear: 5 (set up to don shoe) Other Treatment Family education for dex lift transfer and bed mobility. Pt has medical condition which requires positioning of the body in ways not feasible with an ordinary be. Elevation of the HOB is required for pt to perform supine <--> EOB then requiring differing heights to transfer into and out of bed safely. Due to AKA diagnosis patient is unable to transfer safely without assistance. Dex lift is being ordered to improve ADLs and safe transfers. Pt's demonstrated understanding of using dex lift though will need further training to become proficient. Pt then propelled w/c to therapy gym to work on standing at parallel bars 4x's during which he performs squats and alternating lifting each arm to work on dynamic balance for daily functional tasks. After therapy, pt sitting in w/c in room with call light/phone in reach. All needs met in room. OT Short Term Goals Short Term Goals Time Frame: Mar 08, 2022 Toileting hygiene: 2 Shower/bathe self: 3 Lower body dressin Putting on/taking off footwear: 3 OT Sound Engineering Technician Goals Sound Engineering Technician Goals Time Frame: Mar 24, 2022 Eating (QC): 6 Oral Hygiene (QC): 6 Toileting Hygiene (QC): 3 (bowel movements on toilet) Shower/Bathe Self (QC): 4 Upper Body Dressing (QC): 5 Lower Body Dressing (QC): 3 On/Off Footwear (QC): 4 Additional Goals: 1-Demonstrate ADL Tasks, 2-Verbalize Understanding, 3- ImproveStrength/Lalit 1=Demonstrate adherence to instructed precautions during ADL tasks. 2=Patient will verbalize/demonstrate understanding of assistive devices/modifications for ADL. 3=Patient will improve strength/tolerance for activity to enable patient to perform ADL's. OT Education/Plan Problem List/Assessment Assessment: Decreased Activ Tolerance, Decreased UE Strength, Impaired Bed Mobility, Impaired Coordination, Impaired Funct Balance, Impaired Self-Care Skills, Restricted Funct UE ROM Discharge Recommendations Plan/Recommendations: Continue POC Treatment Plan/Plan of Care Patient would benefit from OT for education, treatment and training to promote independence in ADL's, mobility, safety and/or upper extremity function for ADL's. Plan of Care: ADL Retraining, Caregiver Training, Functional Mobility, Group Exercise/Act as Ind, UE Funct Exercise/Act, W/C Management Training Treatment Duration: Mar 24, 2022 Frequency: At least 5 of 7 days/Wk (IRF) Estimated Hrs Per Day: 1.5 hours per day Rehab Potential: Guarded Time/GCodes Start Time: 09:00 Stop Time: 10:00 Total Time Billed (hr/min): 60 Billed Treatment Time 1 visit-ADL 1 (15 min) FA 3 (45 min) co-treat with PT 60 min KATERIN MONTENEGRO Mar 10, 2022 10:02
--- NOTE | 2022-03-10 14:44 | Therapy Group Daily Note ---
Therapy Daily Group Note Patient Education Topic Home Safety Exercises LE Seated Exercise, UE Exercise Session Ratio (pt:therapist): 8:2 Goal of Session: Home Safety Strategies, UE/LE Strengthing Goal Met for this Session: Yes Pt Benefit of Group: Contributions to Others, F/U Use of Strategies @Home, Increased Functional Safety, Increased Functional Strength, Improved Cognition, Recognition of Peers, Socialization Other/Notes Pt propelled self to therapy gym for OT/PT group. Group consisted of introductions (name, place living, pumd-g-omdvshgx), socialization, B UE/LE exercises and educational topic of home safety. Pt actively listened to peers and introduced self appropriately. Pt was able to complete B UE/LE seated exercises with modifications due to decreased B shldr AROM. Pt verbalized understanding of educational topic and gave personal strategies used in home environment. After session, pt sat in w/c with call light/phone in reach. All needs met in room. Start Time: 13:00 Stop Time: 14:10 Total Billed Treatment Time: 70 Total Billed Treatment 1-[facility] KATERIN MONTENEGRO Mar 10, 2022 14:44
[2022-03-10 20:35] VITALS: BP 134/63
[2022-03-11] MEDS: PIPERACILLIN SODIUM/TAZOBACTAM 4.5 GM in NS (IVPB) 100 ML IV SCH ×3 (05:20→20:31)
[2022-03-11 05:48] LABS: BASOPHILS # (AUTO) 0.1 10^3/uL (0.0-0.1); BASOPHILS % (AUTO) 1 % (0-10); EOSINOPHILS # (AUTO) 0.2 10^3/uL (0.0-0.3); EOSINOPHILS % (AUTO) 1 % (0-10); HEMATOCRIT 31 % (40-54); LYMPHOCYTES # (AUTO) 0.8 10^3/uL (1.0-4.0); LYMPHOCYTES % (AUTO) 7 % (12-44); MEAN CORPUSCULAR HEMOGLOBIN 25 pg (25-34); MEAN CORPUSCULAR HGB CONC 29 g/dL (32-36); MEAN CORPUSCULAR VOLUME 84 fL (80-99); MEAN PLATELET VOLUME 10.9 fL (9.0-12.2); MONOCYTES # (AUTO) 0.7 10^3/uL (0.0-1.0); MONOCYTES % (AUTO) 6 % (0-12); NEUTROPHILS # (AUTO) 9.5 10^3/uL (1.8-7.8); NEUTROPHILS % (AUTO) 85 % (42-75); PLATELET COUNT 327 10^3/uL (130-400); WHITE BLOOD COUNT 11.2 10^3/uL (4.3-11.0)
[2022-03-11 06:04] LABS: ALBUMIN 2.7 GM/DL (3.2-4.5); BILIRUBIN,TOTAL 0.3 MG/DL (0.1-1.0); CREATININE SERUM 0.76 MG/DL (0.60-1.30); POTASSIUM 3.7 MMOL/L (3.6-5.0)
[2022-03-11] MEDS: inSUlin ASPART (NovoLOG) 1 UNIT/0.01 ML (CHARGE PER UNIT) SC SCH ×4 (06:16→21:59)
[2022-03-11] MEDS: GLIMEPIRIDE 1 MG (AMARYL) TAB PO SCH (06:45)
[2022-03-11] MEDS: CYANOCOBALAMIN 1,000 MCG (VITAMIN B-12) TABLET PO SCH (06:45)
[2022-03-11] MEDS: LEVOTHYROXINE 100 MCG (LEVOTHROID) TAB PO SCH (06:45)
--- NOTE | 2022-03-11 07:17 | PM&R Progress Note ---
Subjective HPI/CC On Admission Date Seen by Provider: Mar 11, 2022 Time Seen by Provider: 12:00 Subjective/Events-last exam 03/11/2022: Doing well Pain controlled Abx maintained No falls Improved status Labs reviewed 03/10/2022: Pt is doing really well Blood sugar improved Lortab used pretty much all the time for pain Bowels moved on 03/08/22 03/09/2022: Patient doing well Tolerating Zosyn Pseudomonas in wound Sugars are satisfactory 03/08/2022: Pt is doing pretty well Changed dressing Dr. Perez assessed the wound Gram negative rods in the wound so Zosyn started Increasing Toprol and Lasix per cardiology BP was 199 Discharge planning in the midst of evaluations of his needs 03/07/2022: Doing well today Volume overload resolved Labs reviewed Sugars noted Pain controlled 03/06/2022: Patient having difficulty with shortness of breath and tachypnea Oxygen placed due to hypoxia Septic work-up normal but it appears he has congestive heart failure and volume overload Cardiology consulted after he gave him Lasix 40 mg IV Supportive care will continue 03/05/2022: Patient doing well No pain reported Slept well last night No falls 03/04/2022: Late entry note inadvertently missed note Doing well IV abx maintained BM+ at bedside Melatonin gave him bad dreams 03/03/2022: Pt is doing well White blood cell count is 14 Hemoglobin is 8.9 Stump looks really good Overall doing much better 03/02/2022: Hemoglobin is 8.5 after one unit of blood yesterday White count is 16,000 Bowels moved a little bit today, will get aggressive with that Hep locking IV fluid 03/01/2022: Pt had some incontinence today Dressing was saturated Decrease BP medication for Dr. Kerns A little bit confused Will give one unit of blood today Maintain on broad spectrum antibiotics White count still elevated at 17 02/28/2022: Pt is doing well Mild hypotension not due to sepsis so will give 500 ccs bolus IV fluids 60 an hour Decrease procalcitonin Zosyn and Vancomycin maintained 02/27/2022: Pt is doing a lot better Sleeps all the time Fever and elevated white count with procalcitonin elevation prompting blood and urine cultures, chest x-ray, and empiric IV antibiotics PICC will be placed 02/26/2022: Patient settling in well Sugars lower so will hold Metformin No pain except hip and left shoulder Glucometer assessed at bedside No issues otherwise Review of Systems General: Fatigue, Malaise Objective Exam Vital Signs Vital Signs Date Time Temp Pulse Resp B/P (MAP) Pulse Ox O2 Delivery O2 Flow Rate FiO2 03/11/22 21:14 Nasal Cannula 2.00 03/11/22 20:00 36.5 70 18 138/60 (86) 93 Capillary Refill : General Appearance: No Apparent Distress, WD/WN, Chronically ill HEENT: PERRL/EOMI, Normal ENT Inspection, Pharynx Normal Neck: Normal Inspection, Supple Respiratory: Lungs Clear, Normal Breath Sounds, No Accessory Muscle Use, No Respiratory Distress Cardiovascular: Regular Rate, Rhythm, No Edema, No Gallop, No JVD, No Murmur, Normal Peripheral Pulses Gastrointestinal: Normal Bowel Sounds, No Organomegaly, No Pulsatile Mass, Non Tender, Soft Back: Normal Inspection, No CVA Tenderness, No Vertebral Tenderness Extremity: Other (left AKA with dressing in place C/D/I) Neurologic/Psychiatric: Alert, Oriented x3, signals collector/analyst II-XII Norm as Tested, Motor Weakness Skin: Normal Color, Warm/Dry Lymphatic: No Adenopathy Results/Procedures Lab Laboratory Tests 03/11/22 05:35 Patient resulted labs reviewed. FIM Transfers Therapy Code Descriptions/Definitions Functional [place] Measure: 0=Not Assessed/NA 4=Minimal Assistance 1=Total Assistance 5=Supervision or Setup 2=Maximal Assistance 6=Modified [place] 3=Moderate Assistance 7=Complete IndependenceSCALE: Activities may be completed with or without assistive devices. 2-Waomcvfwsz-xdkxcar completes the activity by him/herself with no assistance from a helper. 5-Set-up or Clean-up Assistance-helper sets up or cleans up; patient completes activity. [place] assists only prior to or following the activity. 4-Supervision or Touching Assistance-helper provides verbal cues and/or touching/steadying and/or contact guard assistance as patient completes activity. Assistance may be provided throughout the activity or intermittently. 3-Partial/Moderate Assistance-helper does LESS THAN HALF the effort. [place] lifts, holds or supports trunk or limbs, but provides less than half the effort. 2-Substantial/Maximal Assistance-helper does MORE THAN HALF the effort. [place] lifts or holds trunk or limbs and provides more than half the effort. 9-Ekqbcgllo-eotpia does ALL the effort. Patient does none of the effort to complete the activity. Or, the assistance of 2 or more helpers is required for the patient to complete the activity. If activity was not attempted, code reason: 7-Patient Refused. 9-Not Applicable-not attempted and the patient did not perform the activity before the current illness, exacerbation or injury. 10-Not Attempted due to Environmental Limitations-(lack of equipment, weather restraints, etc.). 88-Not Attempted due to Medical Conditions or Safety Concerns. Roll Left to Right (QC): 4 Sit to Lying (QC): 4 Sit to Stand (QC): 1 Chair/Bts-mx-Umgwg Xfer(QC): 1 Car Transfer (QC): 2 Gait Training Does the Patient Walk?: No and Walking Goal IS indicated Walk 10 feet (QC): 88 Walk 50 ft with 2 Turns(QC): 88 Walk 150 ft (QC): 88 Walking 10ft/uneven surface-QC: 88 Wheelchair Training Does the Pt Use a Wheelchair?: Yes Distance: 100'x2 Wheel 50 ft with 2 turns (QC): 4 Wheel 150 ft (QC): 4 Type of Wheelchair: Manual Stair Training 1 Step (curb) (QC): 88 4 Steps (QC): 88 12 Steps (QC): 88 Balance Picking up an Object (QC): 88 ADL-Treatment Eating (QC): 6 Oral Hygiene (QC): 6 Bathing Location: L Arm, R Arm, L Upper Leg, R Upper Leg, Chest, Abdomen, Perineal Area Shower/Bathe Self (QC): 3 Upper Body Dressing (QC): 3 Lower Body Dressing (QC): 3 (Min A in supine) On/Off Footwear (QC): 5 (set up to don shoe) Toileting Hygiene (QC): 1 (Assist x2 for bowel movement. 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 Fall 02/21/22 resulting in left shoulder injury causing further debility and limiting ADL/independence Severe PVD PAF OAC HTN HLP DM Hypothyroidism Previous hypoglycemia required holding metformin and glimepiride but now on lower dose Constipation resolved Poor venous access requiring PICC 02/27/22 Anemia post op requiring transfusion 03/01/22 Volume overload CHF requiring IV Lasix 03/06/2022 Infected left stump with Pseudomonas started on abx Zosyn 03/08 Plan: PT OT w/c mobility Home meds 02/26/2022: Pain control Monitor sugar Hold Metformin 02/27/22: Empiric broad spectrum abx Hold Metformin and OAC PICC line 02/28/2022: IV abx Monitor closely 03/01/2022: Transfuse Broad spectrum abx 03/02/2022: Monitor hgb Broad spectrum abx 03/03/2022: IV abx Monitor hgb 03/04/2022: DC Melatonin IV abx 03/05/2022: Monitor closely Check labs in am 03/06/2022: IV Lasix Oxygen 03/07/2022: Monitor labs 03/08/22: Abx 03/09/2022: Zosyn 03/10/2022: Monitor pain 03/11/2022: Continue abx (1) S/P AKA (above knee amputation) (2) Gangrene XIOMARA DICKENS DO Mar 11, 2022 07:17
[2022-03-11 07:30] VITALS: BP 137/63
[2022-03-11] MEDS: APIXABAN 5 MG (ELIQUIS) TABLET PO SCH ×2 (08:11→20:31)
[2022-03-11] MEDS: LOSARTAN 50 MG (COZAAR) TAB PO SCH (08:11)
[2022-03-11] MEDS: PANTOPRAZOLE 40 MG (PROTONIX) TAB PO SCH (08:11)
[2022-03-11] MEDS: FUROSEMIDE 40 MG (LASIX) TAB PO SCH (08:11)
[2022-03-11] MEDS: KCL 10 MEQ TAB (MICRO K) PO SCH ×2 (08:11→20:31)
[2022-03-11] MEDS: meTOproloL SUCCINATE 50 MG (TOPROL XL) TAB PO SCH (08:11)
[2022-03-11] MEDS: LACTOBACILLUS ACIDOPHILUS (PROBIOTIC) CAPSULE PO SCH ×3 (08:11→16:57)
[2022-03-11] MEDS: AMIODARONE 200 MG (CORDARONE) TAB PO SCH (08:12)
[2022-03-11] MEDS: DOCUSATE SODIUM 100 MG (COLACE) CAP PO SCH ×2 (09:32→20:31)
[2022-03-11] MEDS: polyethylene glycoL POWDER 17 GM (MIRALAX) PACK PO SCH ×2 (09:43→20:32)
[2022-03-11] MEDS: SENNA W/DOCUSATE (SENOKOT S) TABLET PO SCH ×2 (09:43→20:32)
--- NOTE | 2022-03-11 11:33 | Physical Therapy Daily Note ---
PT Daily Note-Current Subjective Upon arrival, Pt was supine in bed. Pts was present. Pt agrees to PT. Mental Status Patient Orientation: Person, Place, Situation Attachments: Oxygen (2L) Transfers SCALE: Activities may be completed with or without assistive devices. 5-Ubzsmaecht-tktbmsr completes the activity by him/herself with no assistance from a helper. 5-Set-up or Clean-up Assistance-helper sets up or cleans up; patient completes activity. [place] assists only prior to or following the activity. 4-Supervision or Touching Assistance-helper provides verbal cues and/or touching/steadying and/or contact guard assistance as patient completes activity. Assistance may be provided throughout the activity or intermittently. 3-Partial/Moderate Assistance-helper does LESS THAN HALF the effort. [place] lifts, holds or supports trunk or limbs, but provides less than half the effort. 2-Substantial/Maximal Assistance-helper does MORE THAN HALF the effort. [place] lifts or holds trunk or limbs and provides more than half the effort. 4-Efldvkgcp-iqnont does ALL the effort. Patient does none of the effort to complete the activity. Or, the assistance of 2 or more helpers is required for the patient to complete the activity. If activity was not attempted, code reason: 7-Patient Refused. 9-Not Applicable-not attempted and the patient did not perform the activity before the current illness, exacerbation or injury. 10-Not Attempted due to Environmental Limitations-(lack of equipment, weather restraints, etc.). 88-Not Attempted due to Medical Conditions or Safety Concerns. Pt completed a pivot transfer to / with assistance from PT. Weight Bearing Full Weight Bearing Gait Training Does the Patient Walk?: No and Walking Goal IS indicated Wheelchair Training Does the Pt Use a Wheelchair?: Yes Exercises Supine Ex: Ankle pumps, Glut sets, Heel Slides, Straight leg raise, Hip abd/add Supine Reps: 15 Seated Therapy Exercises: Long arc quads, Hip flexion Seated Reps: 15 Treatments Pt performed and completed all Exs listed above along with hamstring bed press. Pt then transferred to /. Once PT was completed, pt wheeled out of room with present. Assessment Current Status: Good Progress Pt would benefit from continued PT to improve on strength, and activity tolerance. PT Short Term Goals Short Term Goals Time Frame: Mar 03, 2022 Roll Left & Right: 4 Sit to lyin (Batsheva) Lying to sitting on side of be: 3 (Batsheva) Sit to stand: 3 (modA) Chair/tlg-jx-akduo transfer: 3 (modA) PT Residential Goals Residential Goals PT Cloth Dye Range Operator Goals Time Frame: Mar 17, 2022 Roll Left & Right (QC): 6 Sit to Lying (QC): 4 (SBA) Lying-Sitting on Side/Bed(QC): 4 (SBA) Sit to Stand (QC): 3 (Batsheva) Chair/Lvb-vr-Fjjvn Xfer(QC): 3 (Batsheva) Toilet Transfer (QC): 3 (Batsheva) Car Transfer (QC): 3 (Batsheva) Does the Patient Walk: No and Walking Goal NOT indicated Walk 10 feet (QC): 88 Walk 50ft with 2 Turns (QC): 88 Walk 150 ft (QC): 88 Walking 10ft on Uneven Surface: 88 1 Step (curb) (QC): 88 4 Steps (QC): 88 12 Steps (QC): 88 Picking up an Object (QC): 88 Wheel 50 feet with 2 turns (QC: 6 Wheel 150 feet: 6 PT Plan Problem List Problem List: Activity Tolerance, Functional Strength Treatment/Plan Treatment Plan: Continue Plan of Care Treatment Plan: Bed Mobility, Education, Functional Activity Lal[place], Functional Strength, Group Therapy, Safety, Therapeutic Exercise, Transfers Treatment Duration: Mar 17, 2022 Frequency: At least 5 of 7 days/Wk (IRF) Estimated Hrs Per Day: 1.5 hours per day Patient and/or Family Agrees t: Yes Time/GCodes Time In: 1020 Time Out: 1045 Total Billed Treatment Time: 25 Total Billed Treatment 1, Ex (2) 25 YUKI RIOJAS LINEN ATTENDANT Mar 11, 2022 11:33
[2022-03-11 20:00] VITALS: BP 138/60
[2022-03-12] MEDS: PIPERACILLIN SODIUM/TAZOBACTAM 4.5 GM in NS (IVPB) 100 ML IV SCH ×3 (05:02→21:09)
[2022-03-12] MEDS: inSUlin ASPART (NovoLOG) 1 UNIT/0.01 ML (CHARGE PER UNIT) SC SCH ×4 (05:24→21:08)
[2022-03-12] MEDS: CYANOCOBALAMIN 1,000 MCG (VITAMIN B-12) TABLET PO SCH (06:00)
[2022-03-12] MEDS: LEVOTHYROXINE 100 MCG (LEVOTHROID) TAB PO SCH (06:00)
[2022-03-12] MEDS: GLIMEPIRIDE 1 MG (AMARYL) TAB PO SCH (06:00)
--- NOTE | 2022-03-12 07:14 | PM&R Progress Note ---
Subjective HPI/CC On Admission Date Seen by Provider: Mar 12, 2022 Time Seen by Provider: 12:00 Subjective/Events-last exam 03/12/2022: Doing well No pain Lortab used Abx maintained Stump appears improved 03/11/2022: Doing well Pain controlled Abx maintained No falls Improved status Labs reviewed 03/10/2022: Pt is doing really well Blood sugar improved Lortab used pretty much all the time for pain Bowels moved on 03/08/22 03/09/2022: Patient doing well Tolerating Zosyn Pseudomonas in wound Sugars are satisfactory 03/08/2022: Pt is doing pretty well Changed dressing Dr. Perez assessed the wound Gram negative rods in the wound so Zosyn started Increasing Toprol and Lasix per cardiology BP was 199 Discharge planning in the midst of evaluations of his needs 03/07/2022: Doing well today Volume overload resolved Labs reviewed Sugars noted Pain controlled 03/06/2022: Patient having difficulty with shortness of breath and tachypnea Oxygen placed due to hypoxia Septic work-up normal but it appears he has congestive heart failure and volume overload Cardiology consulted after he gave him Lasix 40 mg IV Supportive care will continue 03/05/2022: Patient doing well No pain reported Slept well last night No falls 03/04/2022: Late entry note inadvertently missed note Doing well IV abx maintained BM+ at bedside Melatonin gave him bad dreams 03/03/2022: Pt is doing well White blood cell count is 14 Hemoglobin is 8.9 Stump looks really good Overall doing much better 03/02/2022: Hemoglobin is 8.5 after one unit of blood yesterday White count is 16,000 Bowels moved a little bit today, will get aggressive with that Hep locking IV fluid 03/01/2022: Pt had some incontinence today Dressing was saturated Decrease BP medication for Dr. Kerns A little bit confused Will give one unit of blood today Maintain on broad spectrum antibiotics White count still elevated at 17 02/28/2022: Pt is doing well Mild hypotension not due to sepsis so will give 500 ccs bolus IV fluids 60 an hour Decrease procalcitonin Zosyn and Vancomycin maintained 02/27/2022: Pt is doing a lot better Sleeps all the time Fever and elevated white count with procalcitonin elevation prompting blood and urine cultures, chest x-ray, and empiric IV antibiotics PICC will be placed 02/26/2022: Patient settling in well Sugars lower so will hold Metformin No pain except hip and left shoulder Glucometer assessed at bedside No issues otherwise Review of Systems General: Fatigue, Malaise Objective Exam Vital Signs Vital Signs Date Time Temp Pulse Resp B/P (MAP) Pulse Ox O2 Delivery O2 Flow Rate FiO2 03/12/22 20:04 Nasal Cannula 2.00 03/12/22 19:54 35.9 71 20 129/58 (81) 92 Capillary Refill : General Appearance: No Apparent Distress, WD/WN, Chronically ill HEENT: PERRL/EOMI, Normal ENT Inspection, Pharynx Normal Neck: Normal Inspection, Supple Respiratory: Lungs Clear, Normal Breath Sounds, No Accessory Muscle Use, No Respiratory Distress Cardiovascular: Regular Rate, Rhythm, No Edema, No Gallop, No JVD, No Murmur, Normal Peripheral Pulses Gastrointestinal: Normal Bowel Sounds, No Organomegaly, No Pulsatile Mass, Non Tender, Soft Back: Normal Inspection, No CVA Tenderness, No Vertebral Tenderness Extremity: Other (left AKA with dressing in place C/D/I) Neurologic/Psychiatric: Alert, Oriented x3, sole trimmer II-XII Norm as Tested, Motor Weakness Skin: Normal Color, Warm/Dry Lymphatic: No Adenopathy Results/Procedures Lab Laboratory Tests 03/13/22 04:05 Patient resulted labs reviewed. FIM Transfers Therapy Code Descriptions/Definitions Functional [place] Measure: 0=Not Assessed/NA 4=Minimal Assistance 1=Total Assistance 5=Supervision or Setup 2=Maximal Assistance 6=Modified [place] 3=Moderate Assistance 7=Complete IndependenceSCALE: Activities may be completed with or without assistive devices. 8-Wfbjhajvjb-noidaqu completes the activity by him/herself with no assistance from a helper. 5-Set-up or Clean-up Assistance-helper sets up or cleans up; patient completes activity. [place] assists only prior to or following the activity. 4-Supervision or Touching Assistance-helper provides verbal cues and/or touching/steadying and/or contact guard assistance as patient completes activity. Assistance may be provided throughout the activity or intermittently. 3-Partial/Moderate Assistance-helper does LESS THAN HALF the effort. [place] lifts, holds or supports trunk or limbs, but provides less than half the effort. 2-Substantial/Maximal Assistance-helper does MORE THAN HALF the effort. [place] lifts or holds trunk or limbs and provides more than half the effort. 0-Fgqjkpwpa-ngblea does ALL the effort. Patient does none of the effort to complete the activity. Or, the assistance of 2 or more helpers is required for the patient to complete the activity. If activity was not attempted, code reason: 7-Patient Refused. 9-Not Applicable-not attempted and the patient did not perform the activity before the current illness, exacerbation or injury. 10-Not Attempted due to Environmental Limitations-(lack of equipment, weather restraints, etc.). 88-Not Attempted due to Medical Conditions or Safety Concerns. Roll Left to Right (QC): 4 Sit to Lying (QC): 4 Sit to Stand (QC): 1 Chair/Zqr-xq-Yuydk Xfer(QC): 1 Car Transfer (QC): 2 Gait Training Does the Patient Walk?: No and Walking Goal IS indicated Walk 10 feet (QC): 88 Walk 50 ft with 2 Turns(QC): 88 Walk 150 ft (QC): 88 Walking 10ft/uneven surface-QC: 88 Wheelchair Training Does the Pt Use a Wheelchair?: Yes Distance: 100'x2 Wheel 50 ft with 2 turns (QC): 4 Wheel 150 ft (QC): 4 Type of Wheelchair: Manual Stair Training 1 Step (curb) (QC): 88 4 Steps (QC): 88 12 Steps (QC): 88 Balance Picking up an Object (QC): 88 ADL-Treatment Eating (QC): 6 Oral Hygiene (QC): 6 Bathing Location: L Arm, R Arm, L Upper Leg, R Upper Leg, Chest, Abdomen, Perineal Area Shower/Bathe Self (QC): 3 Upper Body Dressing (QC): 3 Lower Body Dressing (QC): 3 (Min A in supine) On/Off Footwear (QC): 5 (set up to don shoe) Toileting Hygiene (QC): 1 (Assist x2 for bowel movement. 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 Fall 02/21/22 resulting in left shoulder injury causing further debility and limiting ADL/independence Severe PVD PAF OAC HTN HLP DM Hypothyroidism Previous hypoglycemia required holding metformin and glimepiride but now on lower dose Constipation resolved Poor venous access requiring PICC 02/27/22 Anemia post op requiring transfusion 03/01/22 Volume overload CHF requiring IV Lasix 03/06/2022 Infected left stump with Pseudomonas started on abx Zosyn 03/08 Iron deficiency receiving iron infusions Plan: PT OT w/c mobility Home meds 02/26/2022: Pain control Monitor sugar Hold Metformin 02/27/22: Empiric broad spectrum abx Hold Metformin and OAC PICC line 02/28/2022: IV abx Monitor closely 03/01/2022: Transfuse Broad spectrum abx 03/02/2022: Monitor hgb Broad spectrum abx 03/03/2022: IV abx Monitor hgb 03/04/2022: DC Melatonin IV abx 03/05/2022: Monitor closely Check labs in am 03/06/2022: IV Lasix Oxygen 03/07/2022: Monitor labs 03/08/22: Abx 03/09/2022: Zosyn 03/10/2022: Monitor pain 03/11/2022: Continue abx 03/12/2022: Venofer (1) S/P AKA (above knee amputation) (2) Gangrene XIOMARA DICKENS DO Mar 12, 2022 07:14
[2022-03-12 07:30] VITALS: BP 147/65
[2022-03-12] MEDS: IRON SUCROSE 200 MG/10 ML (VENOFER) VIAL IV SCH (09:05)
[2022-03-12] MEDS: meTOproloL SUCCINATE 50 MG (TOPROL XL) TAB PO SCH (09:38)
[2022-03-12] MEDS: KCL 10 MEQ TAB (MICRO K) PO SCH ×2 (09:38→19:59)
[2022-03-12] MEDS: PANTOPRAZOLE 40 MG (PROTONIX) TAB PO SCH (09:38)
[2022-03-12] MEDS: LACTOBACILLUS ACIDOPHILUS (PROBIOTIC) CAPSULE PO SCH ×3 (09:39→18:01)
[2022-03-12] MEDS: LOSARTAN 50 MG (COZAAR) TAB PO SCH (09:39)
[2022-03-12] MEDS: AMIODARONE 200 MG (CORDARONE) TAB PO SCH (09:39)
[2022-03-12] MEDS: FUROSEMIDE 40 MG (LASIX) TAB PO SCH (09:39)
[2022-03-12] MEDS: APIXABAN 5 MG (ELIQUIS) TABLET PO SCH ×2 (09:39→19:59)
[2022-03-12] MEDS: SENNA W/DOCUSATE (SENOKOT S) TABLET PO SCH ×2 (09:50→19:42)
[2022-03-12] MEDS: DOCUSATE SODIUM 100 MG (COLACE) CAP PO SCH ×2 (09:50→19:59)
[2022-03-12] MEDS: polyethylene glycoL POWDER 17 GM (MIRALAX) PACK PO SCH ×2 (09:50→19:59)
[2022-03-12 19:54] VITALS: BP 129/58
[2022-03-13] MEDS: PIPERACILLIN SODIUM/TAZOBACTAM 4.5 GM in NS (IVPB) 100 ML IV SCH ×2 (04:57→13:30)
[2022-03-13 05:04] LABS: BASOPHILS # (AUTO) 0.1 10^3/uL (0.0-0.1); BASOPHILS % (AUTO) 1 % (0-10); EOSINOPHILS # (AUTO) 0.2 10^3/uL (0.0-0.3); EOSINOPHILS % (AUTO) 2 % (0-10); HEMATOCRIT 30 % (40-54); HEMOGLOBIN 8.8 g/dL (13.3-17.7); LYMPHOCYTES % (AUTO) 9 % (12-44); MEAN CORPUSCULAR HEMOGLOBIN 25 pg (25-34); MEAN CORPUSCULAR HGB CONC 29 g/dL (32-36); MEAN CORPUSCULAR VOLUME 85 fL (80-99); MEAN PLATELET VOLUME 10.5 fL (9.0-12.2); MONOCYTES # (AUTO) 0.8 10^3/uL (0.0-1.0); MONOCYTES % (AUTO) 7 % (0-12); NEUTROPHILS # (AUTO) 8.8 10^3/uL (1.8-7.8); NEUTROPHILS % (AUTO) 81 % (42-75); PLATELET COUNT 295 10^3/uL (130-400); WHITE BLOOD COUNT 10.9 10^3/uL (4.3-11.0)
[2022-03-13 05:16] LABS: ALBUMIN 2.8 GM/DL (3.2-4.5)
[2022-03-13 05:17] LABS: POTASSIUM 3.7 MMOL/L (3.6-5.0)
[2022-03-13 05:18] LABS: CALCIUM 9.2 MG/DL (8.5-10.1)
[2022-03-13 05:19] LABS: TOTAL PROTEIN 6.2 GM/DL (6.4-8.2)
[2022-03-13 05:21] LABS: BILIRUBIN,TOTAL 0.4 MG/DL (0.1-1.0)
[2022-03-13 05:23] LABS: CREATININE SERUM 0.78 MG/DL (0.60-1.30)
[2022-03-13] MEDS: inSUlin ASPART (NovoLOG) 1 UNIT/0.01 ML (CHARGE PER UNIT) SC SCH ×4 (05:33→21:09)
--- NOTE | 2022-03-13 06:05 | PM&R Progress Note ---
Subjective HPI/CC On Admission Date Seen by Provider: Mar 13, 2022 Time Seen by Provider: 09:00 Subjective/Events-last exam 03/13/2022: Pt is doing well Hemoglobin is 8.8 Getting ready for discharge sometime this week Progressing well White count is normal 03/12/2022: Doing well No pain Lortab used Abx maintained Stump appears improved 03/11/2022: Doing well Pain controlled Abx maintained No falls Improved status Labs reviewed 03/10/2022: Pt is doing really well Blood sugar improved Lortab used pretty much all the time for pain Bowels moved on 03/08/22 03/09/2022: Patient doing well Tolerating Zosyn Pseudomonas in wound Sugars are satisfactory 03/08/2022: Pt is doing pretty well Changed dressing Dr. Perez assessed the wound Gram negative rods in the wound so Zosyn started Increasing Toprol and Lasix per cardiology BP was 199 Discharge planning in the midst of evaluations of his needs 03/07/2022: Doing well today Volume overload resolved Labs reviewed Sugars noted Pain controlled 03/06/2022: Patient having difficulty with shortness of breath and tachypnea Oxygen placed due to hypoxia Septic work-up normal but it appears he has congestive heart failure and volume overload Cardiology consulted after he gave him Lasix 40 mg IV Supportive care will continue 03/05/2022: Patient doing well No pain reported Slept well last night No falls 03/04/2022: Late entry note inadvertently missed note Doing well IV abx maintained BM+ at bedside Melatonin gave him bad dreams 03/03/2022: Pt is doing well White blood cell count is 14 Hemoglobin is 8.9 Stump looks really good Overall doing much better 03/02/2022: Hemoglobin is 8.5 after one unit of blood yesterday White count is 16,000 Bowels moved a little bit today, will get aggressive with that Hep locking IV fluid 03/01/2022: Pt had some incontinence today Dressing was saturated Decrease BP medication for Dr. Kerns A little bit confused Will give one unit of blood today Maintain on broad spectrum antibiotics White count still elevated at 17 02/28/2022: Pt is doing well Mild hypotension not due to sepsis so will give 500 ccs bolus IV fluids 60 an hour Decrease procalcitonin Zosyn and Vancomycin maintained 02/27/2022: Pt is doing a lot better Sleeps all the time Fever and elevated white count with procalcitonin elevation prompting blood and urine cultures, chest x-ray, and empiric IV antibiotics PICC will be placed 02/26/2022: Patient settling in well Sugars lower so will hold Metformin No pain except hip and left shoulder Glucometer assessed at bedside No issues otherwise Review of Systems General: Fatigue, Malaise Musculoskeletal: leg pain Objective Exam Vital Signs Vital Signs Date Time Temp Pulse Resp B/P (MAP) Pulse Ox O2 Delivery O2 Flow Rate FiO2 03/13/22 20:08 36.7 71 20 126/57 (80) 93 Nasal Cannula 1.50 Capillary Refill : General Appearance: No Apparent Distress, WD/WN, Chronically ill HEENT: PERRL/EOMI, Normal ENT Inspection, Pharynx Normal Neck: Normal Inspection, Supple Respiratory: Lungs Clear, Normal Breath Sounds, No Accessory Muscle Use, No Respiratory Distress Cardiovascular: Regular Rate, Rhythm, No Edema, No Gallop, No JVD, No Murmur, Normal Peripheral Pulses Gastrointestinal: Normal Bowel Sounds, No Organomegaly, No Pulsatile Mass, Non Tender, Soft Back: Normal Inspection, No CVA Tenderness, No Vertebral Tenderness Extremity: Other (left AKA with dressing in place C/D/I) Neurologic/Psychiatric: Alert, Oriented x3, bottom buffer II-XII Norm as Tested, Motor Weakness Skin: Normal Color, Warm/Dry Lymphatic: No Adenopathy Results/Procedures Lab Laboratory Tests 03/13/22 04:05 Patient resulted labs reviewed. FIM Transfers Therapy Code Descriptions/Definitions Functional [place] Measure: 0=Not Assessed/NA 4=Minimal Assistance 1=Total Assistance 5=Supervision or Setup 2=Maximal Assistance 6=Modified [place] 3=Moderate Assistance 7=Complete IndependenceSCALE: Activities may be completed with or without assistive devices. 0-Epfgwtwyzi-wnaimua completes the activity by him/herself with no assistance from a helper. 5-Set-up or Clean-up Assistance-helper sets up or cleans up; patient completes activity. [place] assists only prior to or following the activity. 4-Supervision or Touching Assistance-helper provides verbal cues and/or touching/steadying and/or contact guard assistance as patient completes activity. Assistance may be provided throughout the activity or intermittently. 3-Partial/Moderate Assistance-helper does LESS THAN HALF the effort. [place] lifts, holds or supports trunk or limbs, but provides less than half the effort. 2-Substantial/Maximal Assistance-helper does MORE THAN HALF the effort. [place] lifts or holds trunk or limbs and provides more than half the effort. 6-Rwijalpqs-zxhpbq does ALL the effort. Patient does none of the effort to complete the activity. Or, the assistance of 2 or more helpers is required for the patient to complete the activity. If activity was not attempted, code reason: 7-Patient Refused. 9-Not Applicable-not attempted and the patient did not perform the activity before the current illness, exacerbation or injury. 10-Not Attempted due to Environmental Limitations-(lack of equipment, weather restraints, etc.). 88-Not Attempted due to Medical Conditions or Safety Concerns. Roll Left to Right (QC): 4 Sit to Lying (QC): 4 Sit to Stand (QC): 1 Chair/Guv-mk-Dlddq Xfer(QC): 1 Car Transfer (QC): 2 Gait Training Does the Patient Walk?: No and Walking Goal IS indicated Walk 10 feet (QC): 88 Walk 50 ft with 2 Turns(QC): 88 Walk 150 ft (QC): 88 Walking 10ft/uneven surface-QC: 88 Wheelchair Training Does the Pt Use a Wheelchair?: Yes Distance: 100'x2 Wheel 50 ft with 2 turns (QC): 4 Wheel 150 ft (QC): 4 Type of Wheelchair: Manual Stair Training 1 Step (curb) (QC): 88 4 Steps (QC): 88 12 Steps (QC): 88 Balance Picking up an Object (QC): 88 ADL-Treatment Eating (QC): 6 Oral Hygiene (QC): 6 Bathing Location: L Arm, R Arm, L Upper Leg, R Upper Leg, Chest, Abdomen, Perineal Area Shower/Bathe Self (QC): 3 Upper Body Dressing (QC): 3 Lower Body Dressing (QC): 3 (Min A in supine) On/Off Footwear (QC): 5 (set up to don shoe) Toileting Hygiene (QC): 1 (Assist x2 for bowel movement. 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 Fall 02/21/22 resulting in left shoulder injury causing further debility and limiting ADL/independence Severe PVD PAF OAC HTN HLP DM Hypothyroidism Previous hypoglycemia required holding metformin and glimepiride but now on lower dose Constipation resolved Poor venous access requiring PICC 02/27/22 Anemia post op requiring transfusion 03/01/22 Volume overload CHF requiring IV Lasix 03/06/2022 Infected left stump with Pseudomonas started on abx Zosyn 03/08 Iron deficiency receiving iron infusions Plan: PT OT w/c mobility Home meds 02/26/2022: Pain control Monitor sugar Hold Metformin 02/27/22: Empiric broad spectrum abx Hold Metformin and OAC PICC line 02/28/2022: IV abx Monitor closely 03/01/2022: Transfuse Broad spectrum abx 03/02/2022: Monitor hgb Broad spectrum abx 03/03/2022: IV abx Monitor hgb 03/04/2022: DC Melatonin IV abx 03/05/2022: Monitor closely Check labs in am 03/06/2022: IV Lasix Oxygen 03/07/2022: Monitor labs 03/08/22: Abx 03/09/2022: Zosyn 03/10/2022: Monitor pain 03/11/2022: Continue abx 03/12/2022: Venofer 03/13/2022: Home O2 eval (1) S/P AKA (above knee amputation) (2) Gangrene XIOMARA DICKENS DO Mar 13, 2022 06:05
[2022-03-13] MEDS: GLIMEPIRIDE 1 MG (AMARYL) TAB PO SCH (06:35)
[2022-03-13] MEDS: CYANOCOBALAMIN 1,000 MCG (VITAMIN B-12) TABLET PO SCH (06:35)
[2022-03-13] MEDS: LEVOTHYROXINE 100 MCG (LEVOTHROID) TAB PO SCH (06:35)
[2022-03-13 07:35] VITALS: BP 141/65
[2022-03-13] MEDS: LACTOBACILLUS ACIDOPHILUS (PROBIOTIC) CAPSULE PO SCH ×3 (08:56→17:12)
[2022-03-13] MEDS: APIXABAN 5 MG (ELIQUIS) TABLET PO SCH ×2 (08:57→21:17)
[2022-03-13] MEDS: meTOproloL SUCCINATE 50 MG (TOPROL XL) TAB PO SCH (08:57)
[2022-03-13] MEDS: FUROSEMIDE 40 MG (LASIX) TAB PO SCH (08:57)
[2022-03-13] MEDS: LOSARTAN 50 MG (COZAAR) TAB PO SCH (08:57)
[2022-03-13] MEDS: AMIODARONE 200 MG (CORDARONE) TAB PO SCH (08:57)
[2022-03-13] MEDS: PANTOPRAZOLE 40 MG (PROTONIX) TAB PO SCH (08:57)
[2022-03-13] MEDS: KCL 10 MEQ TAB (MICRO K) PO SCH ×2 (08:57→21:17)
[2022-03-13] MEDS: SENNA W/DOCUSATE (SENOKOT S) TABLET PO SCH ×2 (09:59→21:09)
[2022-03-13] MEDS: DOCUSATE SODIUM 100 MG (COLACE) CAP PO SCH ×2 (09:59→21:09)
[2022-03-13] MEDS: polyethylene glycoL POWDER 17 GM (MIRALAX) PACK PO SCH ×2 (09:59→21:09)
--- NOTE | 2022-03-13 11:40 | Occupational Ther Daily Note ---
OT Current Status-Daily Note Subjective Pt alert, sitting EOB. Pt agrees to therapy. Pt's present in room. Educating on transfers. Co-treat with PT [id number], skills of 2 clinicians required to decrease fall risk, increase functional mobility, decrease pain and increase independence. OT focusing on positioning for functional mobility, ADLs and B UE strengthening. Pt c/o pain in multiple areas, nrsg brought pain meds. Mental Status/Objective Patient Orientation: Person, Place, Time, Situation Attachments: Oxygen ADL-Treatment Mod A for SPT from EOB. Propels w/c by self into bathroom. Sitting at sink, completes oral care. Therapy Code Descriptions/Definitions Functional [place] Measure: 0=Not Assessed/NA 4=Minimal Assistance 1=Total Assistance 5=Supervision or Setup 2=Maximal Assistance 6=Modified [place] 3=Moderate Assistance 7=Complete IndependenceSCALE: Activities may be completed with or without assistive devices. 4-Ebrgsyfuxd-qaczxoa completes the activity by him/herself with no assistance from a helper. 5-Set-up or Clean-up Assistance-helper sets up or cleans up; patient completes activity. [place] assists only prior to or following the activity. 4-Supervision or Touching Assistance-helper provides verbal cues and/or touching/steadying and/or contact guard assistance as patient completes activity. Assistance may be provided throughout the activity or intermittently. 3-Partial/Moderate Assistance-helper does LESS THAN HALF the effort. [place] lifts, holds or supports trunk or limbs, but provides less than half the effort. 2-Substantial/Maximal Assistance-helper does MORE THAN HALF the effort. [place] lifts or holds trunk or limbs and provides more than half the effort. 0-Hudmsoafu-bqjyye does ALL the effort. Patient does none of the effort to complete the activity. Or, the assistance of 2 or more helpers is required for the patient to complete the activity. If activity was not attempted, code reason: 7-Patient Refused. 9-Not Applicable-not attempted and the patient did not perform the activity before the current illness, exacerbation or injury. 10-Not Attempted due to Environmental Limitations-(lack of equipment, weather restraints, etc.). 88-Not Attempted due to Medical Conditions or Safety Concerns. Oral Hygiene (QC): 6 Other Treatment Pt propels w/c to therapy gym. Pt working in parallel bars on hopping gait 3x's with max A and verbal cues for correct positioning. Pt then working on more efficient w/c mobility and strengthening. SPT using FWW from w/c to chair com pleted with max assist x2, 3 transfers. Pt takes increased time to complete all tasks due to need of lengthy recovery breaks. After session, pt sitting in w/c with call light/phone in reach. All needs met in room. OT Short Term Goals Short Term Goals Time Frame: Mar 08, 2022 Toileting hygiene: 2 Shower/bathe self: 3 Lower body dressin Putting on/taking off footwear: 3 OT Group Home Goals Group Home Goals Time Frame: Mar 24, 2022 Eating (QC): 6 Oral Hygiene (QC): 6 Toileting Hygiene (QC): 3 (bowel movements on toilet) Shower/Bathe Self (QC): 4 Upper Body Dressing (QC): 5 Lower Body Dressing (QC): 3 On/Off Footwear (QC): 4 Additional Goals: 1-Demonstrate ADL Tasks, 2-Verbalize Understanding, 3- ImproveStrength/Lalit 1=Demonstrate adherence to instructed precautions during ADL tasks. 2=Patient will verbalize/demonstrate understanding of assistive devices/modifications for ADL. 3=Patient will improve strength/tolerance for activity to enable patient to perform ADL's. OT Education/Plan Problem List/Assessment Assessment: Decreased Activ Tolerance, Decreased UE Strength, Impaired Bed Mobility, Impaired Funct Balance, Impaired Self-Care Skills, Restricted Funct UE ROM Discharge Recommendations Plan/Recommendations: Continue POC Treatment Plan/Plan of Care Patient would benefit from OT for education, treatment and training to promote independence in ADL's, mobility, safety and/or upper extremity function for ADL's. Plan of Care: ADL Retraining, Caregiver Training, Functional Mobility, Group Exercise/Act as Ind, UE Funct Exercise/Act, W/C Management Training Treatment Duration: Mar 24, 2022 Frequency: At least 5 of 7 days/Wk (IRF) Estimated Hrs Per Day: 1.5 hours per day Rehab Potential: Guarded Time/GCodes Start Time: 08:30 Stop Time: 10:00 Total Time Billed (hr/min): 90 Billed Treatment Time 1 visit-ADL 2 (30 min) FA 4 (60 min) co-treat with PT [id number], individual 0830 YVONNE MONTENEGROMaco ALMEIDA Mar 13, 2022 11:40
--- NOTE | 2022-03-13 15:55 | Physical Therapy Daily Note ---
PT Daily Note-Current Subjective Patient in w/c with OT upon PT arrival, agreeable to treatment. Patient was co- treated with OT due to patients increased need for 2 disciplines to efficiently and safely perform treatment with patient due to poor balance, increased fall risk, decline in strength and difficulty performing ADLs. OT will focus on the UEs and functional ADLS while PT will focus on LE strength and mobility ADLs. Transfers SCALE: Activities may be completed with or without assistive devices. 4-Xbnrtiwmgg-atowoau completes the activity by him/herself with no assistance from a helper. 5-Set-up or Clean-up Assistance-helper sets up or cleans up; patient completes activity. [place] assists only prior to or following the activity. 4-Supervision or Touching Assistance-helper provides verbal cues and/or touc elvis/steadying and/or contact guard assistance as patient completes activity. Assistance may be provided throughout the activity or intermittently. 3-Partial/Moderate Assistance-helper does LESS THAN HALF the effort. [place] lifts, holds or supports trunk or limbs, but provides less than half the effort. 2-Substantial/Maximal Assistance-helper does MORE THAN HALF the effort. [place] lifts or holds trunk or limbs and provides more than half the effort. 2-Rndgnesdr-bhacwb does ALL the effort. Patient does none of the effort to complete the activity. Or, the assistance of 2 or more helpers is required for the patient to complete the activity. If activity was not attempted, code reason: 7-Patient Refused. 9-Not Applicable-not attempted and the patient did not perform the activity before the current illness, exacerbation or injury. 10-Not Attempted due to Environmental Limitations-(lack of equipment, weather restraints, etc.). 88-Not Attempted due to Medical Conditions or Safety Concerns. Sit to Stand (QC): 1 Chair/Nbv-tg-Nkhjr Xfer(QC): 1 Weight Bearing Full Weight Bearing Gait Training Does the Patient Walk?: Yes Distance: 8 feet Gait Assistive Device: Parallel Bars Assessment Current Status: Poor Progress Patient was co-treated with OT due to patients increased need for 2 disciplines to efficiently and safely perform treatment with patient due to poor balance, increased fall risk, decline in strength and difficulty performing ADLs. OT will focus on the UEs and functional ADLS while PT will focus on LE strength and mobility ADLs. Patient performs all observed bed mobility with SBA. He performs sit to stand with max A and SPT with max A to the w/c. Patient performs dynamic standing balance with PT focus on balance and mobility, OT focus on dressing and bathing. Patient propels w/c 250 feet x 2 with SBA. Patient performs static and dynamic standing balance with mod A x 2 with UE raises to promote increased weight bearing on right LE and decreased reliance on UEs. Patient able to ambulate 8 feet with parallel bars x 3, with max A and person following with w/c. Patient propels w/c 250 feet back to room. Patient requires mod A x 2 for transfer into bed. Patient in bed post treatment with all needs met, nursing notified, call light in reach. PT Short Term Goals Short Term Goals Time Frame: Mar 03, 2022 Roll Left & Right: 4 Sit to lyin (Batsheva) Lying to sitting on side of be: 3 (Batsheva) Sit to stand: 3 (modA) Chair/sro-eg-labos transfer: 3 (modA) PT Environmental Technician Goals Residential Goals PT Residential Goals Time Frame: Mar 17, 2022 Roll Left & Right (QC): 6 Sit to Lying (QC): 4 (SBA) Lying-Sitting on Side/Bed(QC): 4 (SBA) Sit to Stand (QC): 3 (Batsheva) Chair/Bth-jg-Wfdzo Xfer(QC): 3 (Batsheva) Toilet Transfer (QC): 3 (Batsheva) Car Transfer (QC): 3 (Batsheva) Does the Patient Walk: No and Walking Goal NOT indicated Walk 10 feet (QC): 88 Walk 50ft with 2 Turns (QC): 88 Walk 150 ft (QC): 88 Walking 10ft on Uneven Surface: 88 1 Step (curb) (QC): 88 4 Steps (QC): 88 12 Steps (QC): 88 Picking up an Object (QC): 88 Wheel 50 feet with 2 turns (QC: 6 Wheel 150 feet: 6 PT Plan Treatment/Plan Treatment Plan: Continue Plan of Care Treatment Plan: Bed Mobility, Education, Functional Activity Lalit, Functional Strength, Group Therapy, Safety, Therapeutic Exercise, Transfers Treatment Duration: Mar 17, 2022 Frequency: At least 5 of 7 days/Wk (IRF) Estimated Hrs Per Day: 1.5 hours per day Patient and/or Family Agrees t: Yes Time/GCodes Time In: 900 Time Out: 1000 Total Billed Treatment Time: 60 Total Billed Treatment Visit, FA(2), W/C, CANDI Fisher PT Mar 13, 2022 15:55
--- NOTE | 2022-03-13 16:02 | Physical Therapy Daily Note ---
PT Daily Note-Current Subjective Patient lying supine in bed upon PT arrival, agreeable to treatment. Transfers SCALE: Activities may be completed with or without assistive devices. 2-Xubtqpymyv-ktombla completes the activity by him/herself with no assistance from a helper. 5-Set-up or Clean-up Assistance-helper sets up or cleans up; patient completes activity. [place] assists only prior to or following the activity. 4-Supervision or Touching Assistance-helper provides verbal cues and/or touching/steadying and/or contact guard assistance as patient completes act ivity. Assistance may be provided throughout the activity or intermittently. 3-Partial/Moderate Assistance-helper does LESS THAN HALF the effort. [place] lifts, holds or supports trunk or limbs, but provides less than half the effort. 2-Substantial/Maximal Assistance-helper does MORE THAN HALF the effort. [place] lifts or holds trunk or limbs and provides more than half the effort. 4-Kfwtmszop-dabvgz does ALL the effort. Patient does none of the effort to complete the activity. Or, the assistance of 2 or more helpers is required for the patient to complete the activity. If activity was not attempted, code reason: 7-Patient Refused. 9-Not Applicable-not attempted and the patient did not perform the activity before the current illness, exacerbation or injury. 10-Not Attempted due to Environmental Limitations-(lack of equipment, weather restraints, etc.). 88-Not Attempted due to Medical Conditions or Safety Concerns. Roll Left & Right (QC): 4 Sit to Lying (QC): 4 Lying to Sitting/Side of Bed(Q: 4 Sit to Stand (QC): 2 Chair/Ezb-xq-Dvtvu Xfer(QC): 2 Weight Bearing Full Weight Bearing Exercises Seated Therapy Exercises: Ankle pumps, Long arc quads, Hip flexion, Hamstring Curls, Hip abd/add Seated Reps: 20 Assessment Current Status: Fair Progress Patient tolerated treatment well. Performs all observed bed mobility with SBA and all transfers with max A. Patient performs LE therapeutic exercise as listed above. Patient propels w/c 150 feet to room. Patient in w/c post treatment with in the room, all needs met, nursing notified, call light in reach. PT Short Term Goals Short Term Goals Time Frame: Mar 03, 2022 Roll Left & Right: 4 Sit to lyin (Batsheva) Lying to sitting on side of be: 3 (Batsheva) Sit to stand: 3 (modA) Chair/vms-yu-wwctw transfer: 3 (modA) PT Mcfp Goals Mcfp Goals PT Mcfp Goals Time Frame: Mar 17, 2022 Roll Left & Right (QC): 6 Sit to Lying (QC): 4 (SBA) Lying-Sitting on Side/Bed(QC): 4 (SBA) Sit to Stand (QC): 3 (Batsheva) Chair/Rut-nu-Bflim Xfer(QC): 3 (Batsheva) Toilet Transfer (QC): 3 (Batsheva) Car Transfer (QC): 3 (Batsheva) Does the Patient Walk: No and Walking Goal NOT indicated Walk 10 feet (QC): 88 Walk 50ft with 2 Turns (QC): 88 Walk 150 ft (QC): 88 Walking 10ft on Uneven Surface: 88 1 Step (curb) (QC): 88 4 Steps (QC): 88 12 Steps (QC): 88 Picking up an Object (QC): 88 Wheel 50 feet with 2 turns (QC: 6 Wheel 150 feet: 6 PT Plan Treatment/Plan Treatment Plan: Continue Plan of Care Treatment Plan: Bed Mobility, Education, Functional Activity Lalit, Functional Strength, Group Therapy, Safety, Therapeutic Exercise, Transfers Treatment Duration: Mar 17, 2022 Frequency: At least 5 of 7 days/Wk (IRF) Estimated Hrs Per Day: 1.5 hours per day Patient and/or Family Agrees t: Yes Safety Risks/Education Patient Education: Transfer Techniques Teaching Recipient: Patient Teaching Methods: Demonstration, Discussion Response to Teaching: Verbalize Understanding, Return Demonstration Time/GCodes Time In: 1330 Time Out: 1400 Total Billed Treatment Time: 30 Total Billed Treatment Visit, FA, Ex CANDI ANGELES PT Mar 13, 2022 16:02
[2022-03-13 20:08] VITALS: BP 126/57
[2022-03-14] MEDS: LEVOTHYROXINE 100 MCG (LEVOTHROID) TAB PO SCH (06:00)
[2022-03-14] MEDS: GLIMEPIRIDE 1 MG (AMARYL) TAB PO SCH (06:00)
[2022-03-14] MEDS: CYANOCOBALAMIN 1,000 MCG (VITAMIN B-12) TABLET PO SCH (06:00)
--- NOTE | 2022-03-14 06:11 | PM&R Progress Note ---
Subjective HPI/CC On Admission Date Seen by Provider: Mar 14, 2022 Time Seen by Provider: 09:00 Subjective/Events-last exam 03/14/2022: Doing well DC tomorrow Declined SNF at [facility] with me Son in town who will help 03/13/2022: Pt is doing well Hemoglobin is 8.8 Getting ready for discharge sometime this week Progressing well White count is normal 03/12/2022: Doing well No pain Lortab used Abx maintained Stump appears improved 03/11/2022: Doing well Pain controlled Abx maintained No falls Improved status Labs reviewed 03/10/2022: Pt is doing really well Blood sugar improved Lortab used pretty much all the time for pain Bowels moved on 03/08/22 03/09/2022: Patient doing well Tolerating Zosyn Pseudomonas in wound Sugars are satisfactory 03/08/2022: Pt is doing pretty well Changed dressing Dr. Perez assessed the wound Gram negative rods in the wound so Zosyn started Increasing Toprol and Lasix per cardiology BP was 199 Discharge planning in the midst of evaluations of his needs 03/07/2022: Doing well today Volume overload resolved Labs reviewed Sugars noted Pain controlled 03/06/2022: Patient having difficulty with shortness of breath and tachypnea Oxygen placed due to hypoxia Septic work-up normal but it appears he has congestive heart failure and volume overload Cardiology consulted after he gave him Lasix 40 mg IV Supportive care will continue 03/05/2022: Patient doing well No pain reported Slept well last night No falls 03/04/2022: Late entry note inadvertently missed note Doing well IV abx maintained BM+ at bedside Melatonin gave him bad dreams 03/03/2022: Pt is doing well White blood cell count is 14 Hemoglobin is 8.9 Stump looks really good Overall doing much better 03/02/2022: Hemoglobin is 8.5 after one unit of blood yesterday White count is 16,000 Bowels moved a little bit today, will get aggressive with that Hep locking IV fluid 03/01/2022: Pt had some incontinence today Dressing was saturated Decrease BP medication for Dr. Kerns A little bit confused Will give one unit of blood today Maintain on broad spectrum antibiotics White count still elevated at 17 02/28/2022: Pt is doing well Mild hypotension not due to sepsis so will give 500 ccs bolus IV fluids 60 an hour Decrease procalcitonin Zosyn and Vancomycin maintained 02/27/2022: Pt is doing a lot better Sleeps all the time Fever and elevated white count with procalcitonin elevation prompting blood and urine cultures, chest x-ray, and empiric IV antibiotics PICC will be placed 02/26/2022: Patient settling in well Sugars lower so will hold Metformin No pain except hip and left shoulder Glucometer assessed at bedside No issues otherwise Review of Systems General: Fatigue, Malaise Objective Exam Vital Signs Vital Signs Date Time Temp Pulse Resp B/P (MAP) Pulse Ox O2 Delivery O2 Flow Rate FiO2 03/14/22 20:10 36.4 78 20 127/52 (77) 92 Nasal Cannula 1.50 Capillary Refill : General Appearance: No Apparent Distress, WD/WN, Chronically ill HEENT: PERRL/EOMI, Normal ENT Inspection, Pharynx Normal Neck: Normal Inspection, Supple Respiratory: Lungs Clear, Normal Breath Sounds, No Accessory Muscle Use, No Respiratory Distress Cardiovascular: Regular Rate, Rhythm, No Edema, No Gallop, No JVD, No Murmur, Normal Peripheral Pulses Gastrointestinal: Normal Bowel Sounds, No Organomegaly, No Pulsatile Mass, Non Tender, Soft Back: Normal Inspection, No CVA Tenderness, No Vertebral Tenderness Extremity: Other (left AKA with dressing in place C/D/I) Neurologic/Psychiatric: Alert, Oriented x3, manager personnel selection II-XII Norm as Tested, Motor Weakness Skin: Normal Color, Warm/Dry Lymphatic: No Adenopathy Results/Procedures Lab Patient resulted labs reviewed. FIM Transfers Therapy Code Descriptions/Definitions Functional [place] Measure: 0=Not Assessed/NA 4=Minimal Assistance 1=Total Assistance 5=Supervision or Setup 2=Maximal Assistance 6=Modified [place] 3=Moderate Assistance 7=Complete IndependenceSCALE: Activities may be completed with or without assistive devices. 9-Bacgzbihxg-rginski completes the activity by him/herself with no assistance from a helper. 5-Set-up or Clean-up Assistance-helper sets up or cleans up; patient completes activity. [place] assists only prior to or following the activity. 4-Supervision or Touching Assistance-helper provides verbal cues and/or touching/steadying and/or contact guard assistance as patient completes activity. Assistance may be provided throughout the activity or intermittently. 3-Partial/Moderate Assistance-helper does LESS THAN HALF the effort. [place] lifts, holds or supports trunk or limbs, but provides less than half the effort. 2-Substantial/Maximal Assistance-helper does MORE THAN HALF the effort. [place] lifts or holds trunk or limbs and provides more than half the effort. 0-Awnvunana-fvgvnw does ALL the effort. Patient does none of the effort to complete the activity. Or, the assistance of 2 or more helpers is required for the patient to complete the activity. If activity was not attempted, code reason: 7-Patient Refused. 9-Not Applicable-not attempted and the patient did not perform the activity before the current illness, exacerbation or injury. 10-Not Attempted due to Environmental Limitations-(lack of equipment, weather restraints, etc.). 88-Not Attempted due to Medical Conditions or Safety Concerns. Roll Left to Right (QC): 4 Sit to Lying (QC): 4 Sit to Stand (QC): 2 Chair/Yej-oe-Jcyqc Xfer(QC): 2 Car Transfer (QC): 2 Gait Training Does the Patient Walk?: Yes Distance: 8 feet Walk 10 feet (QC): 88 Walk 50 ft with 2 Turns(QC): 88 Walk 150 ft (QC): 88 Walking 10ft/uneven surface-QC: 88 Gait Assistive Device: Parallel Bars Wheelchair Training Does the Pt Use a Wheelchair?: Yes Distance: 100'x2 Wheel 50 ft with 2 turns (QC): 4 Wheel 150 ft (QC): 4 Type of Wheelchair: Manual Stair Training 1 Step (curb) (QC): 88 4 Steps (QC): 88 12 Steps (QC): 88 Balance Picking up an Object (QC): 88 ADL-Treatment Eating (QC): 6 Oral Hygiene (QC): 6 Bathing Location: L Arm, R Arm, L Upper Leg, R Upper Leg, Chest, Abdomen, Perineal Area Shower/Bathe Self (QC): 3 Upper Body Dressing (QC): 3 Lower Body Dressing (QC): 3 (Min A in supine) On/Off Footwear (QC): 5 (set up to don shoe) Toileting Hygiene (QC): 1 (Assist x2 for bowel movement. 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 Fall 02/21/22 resulting in left shoulder injury causing further debility and limiting ADL/independence Severe PVD PAF OAC HTN HLP DM Hypothyroidism Previous hypoglycemia required holding metformin and glimepiride but now on lower dose Constipation resolved Poor venous access requiring PICC 02/27/22 Anemia post op requiring transfusion 03/01/22 Volume overload CHF requiring IV Lasix 03/06/2022 Infected left stump with Pseudomonas started on abx Zosyn 03/08 Iron deficiency receiving iron infusions Plan: PT OT w/c mobility Home meds 02/26/2022: Pain control Monitor sugar Hold Metformin 02/27/22: Empiric broad spectrum abx Hold Metformin and OAC PICC line 02/28/2022: IV abx Monitor closely 03/01/2022: Transfuse Broad spectrum abx 03/02/2022: Monitor hgb Broad spectrum abx 03/03/2022: IV abx Monitor hgb 03/04/2022: DC Melatonin IV abx 03/05/2022: Monitor closely Check labs in am 03/06/2022: IV Lasix Oxygen 03/07/2022: Monitor labs 03/08/22: Abx 03/09/2022: Zosyn 03/10/2022: Monitor pain 03/11/2022: Continue abx 03/12/2022: Venofer 03/13/2022: Home O2 eval 03/14/2022: Home O2 eval (1) S/P AKA (above knee amputation) (2) Gangrene XIOMARA DICKENS DO Mar 14, 2022 06:11
[2022-03-14] MEDS: inSUlin ASPART (NovoLOG) 1 UNIT/0.01 ML (CHARGE PER UNIT) SC SCH ×4 (06:37→21:42)
[2022-03-14 08:00] VITALS: BP 141/63
[2022-03-14] MEDS: FUROSEMIDE 40 MG (LASIX) TAB PO SCH (08:17)
[2022-03-14] MEDS: meTOproloL SUCCINATE 50 MG (TOPROL XL) TAB PO SCH (08:17)
[2022-03-14] MEDS: KCL 10 MEQ TAB (MICRO K) PO SCH ×2 (08:17→21:42)
[2022-03-14] MEDS: LACTOBACILLUS ACIDOPHILUS (PROBIOTIC) CAPSULE PO SCH ×3 (08:17→18:04)
[2022-03-14] MEDS: LOSARTAN 50 MG (COZAAR) TAB PO SCH (08:18)
[2022-03-14] MEDS: PANTOPRAZOLE 40 MG (PROTONIX) TAB PO SCH (08:18)
[2022-03-14] MEDS: APIXABAN 5 MG (ELIQUIS) TABLET PO SCH ×2 (08:18→21:42)
[2022-03-14] MEDS: IRON SUCROSE 200 MG/10 ML (VENOFER) VIAL IV SCH (08:18)
[2022-03-14] MEDS: AMIODARONE 200 MG (CORDARONE) TAB PO SCH (08:18)
[2022-03-14] MEDS: polyethylene glycoL POWDER 17 GM (MIRALAX) PACK PO SCH ×2 (08:26→21:38)
[2022-03-14] MEDS: DOCUSATE SODIUM 100 MG (COLACE) CAP PO SCH ×2 (08:26→21:37)
[2022-03-14] MEDS: SENNA W/DOCUSATE (SENOKOT S) TABLET PO SCH ×2 (08:26→21:38)
--- NOTE | 2022-03-14 10:12 | Occupational Ther Daily Note ---
OT Current Status-Daily Note Subjective Pt alert, lying in bed. Pt agrees to therapy. No c/o pain while lying, vocalized pain with movement. OT/PT cotreat ([id number]), skills of 2 clinicians required to decrease fall risk, increase safe mobility and increase activity tolerance/strength. PT focusing on transfers, mobility using w/c and FWW while OT focusing on ADLs, functional transfers and positioning during mobility. Mental Status/Objective Patient Orientation: Person, Place, Time, Situation Attachments: IV, Oxygen (2L) ADL-Treatment Pt agrees to shower. Pt independent with eating. Min A for supine to EOB with HOB elevated then independent with EOB to supine. Squat pivot transfer from EOB to shower chair mod A and 2nd person stabilizing chair and manipulating clothin g. Pt able to complete shower using rolling shower chair with cutout, LH sponge, grabbars and hand held shower. Assist given in shower to wash under B arms due to decreased ROM of B shldrs. Oral care independent while sitting at sink. Min A for upper body dressing. Min A with lower body dressing if pt is in supine. Assist x2 if pt completes in standing. RODRIGUEZ has recommended to to complete lower body dressing and bathing while pt is in supine. Pt is able to use sock aide to don sock, has one at home. Set up for donning shoe. Pt able to void with urinal by self though assist to empty. Assist x2 when using BSC for BM hygiene and clothing manipulation. Max A if using bed mendoza in supine. Therapy Code Descriptions/Definitions Functional [place] Measure: 0=Not Assessed/NA 4=Minimal Assistance 1=Total Assistance 5=Supervision or Setup 2=Maximal Assistance 6=Modified [place] 3=Moderate Assistance 7=Complete IndependenceSCALE: Activities may be completed with or without assistive devices. 4-Ibacwkoqyz-ehqwuvw completes the activity by him/herself with no assistance from a helper. 5-Set-up or Clean-up Assistance-helper sets up or cleans up; patient completes activity. [place] assists only prior to or following the activity. 4-Supervision or Touching Assistance-helper provides verbal cues and/or touching/steadying and/or contact guard assistance as patient completes activity. Assistance may be provided throughout the activity or intermittently. 3-Partial/Moderate Assistance-helper does LESS THAN HALF the effort. [place] lifts, holds or supports trunk or limbs, but provides less than half the effort. 2-Substantial/Maximal Assistance-helper does MORE THAN HALF the effort. [place] lifts or holds trunk or limbs and provides more than half the effort. 3-Jofyindnm-uuoxah does ALL the effort. Patient does none of the effort to complete the activity. Or, the assistance of 2 or more helpers is required for the patient to complete the activity. If activity was not attempted, code reason: 7-Patient Refused. 9-Not Applicable-not attempted and the patient did not perform the activity before the current illness, exacerbation or injury. 10-Not Attempted due to Environmental Limitations-(lack of equipment, weather restraints, etc.). 88-Not Attempted due to Medical Conditions or Safety Concerns. Eating (QC): 6 Oral Hygiene (QC): 6 Shower/Bathe Self (QC): 3 Upper Body Dressing (QC): 3 Lower Body Dressing (QC): 3 (mod A) On/Off Footwear: 5 Toileting Hygiene (QC): 1 Toilet Transfer (QC): 1 Other Treatment Pt able to manipulate w/c around ARU floor independently. See PT notes for standing progress. After session, pt sitting in w/c with call light/phone in reach. All needs met in room. OT Short Term Goals Short Term Goals Time Frame: Mar 08, 2022 Toileting hygiene: 2 Shower/bathe self: 3 Lower body dressin Putting on/taking off footwear: 3 OT Entry Table Operator Goals Usp Goals Time Frame: Mar 24, 2022 Eating (QC): 6 Oral Hygiene (QC): 6 Toileting Hygiene (QC): 3 (bowel movements on toilet) Shower/Bathe Self (QC): 4 Upper Body Dressing (QC): 5 Lower Body Dressing (QC): 3 On/Off Footwear (QC): 4 Additional Goals: 1-Demonstrate ADL Tasks, 2-Verbalize Understanding, 3- ImproveStrength/Lalit 1=Demonstrate adherence to instructed precautions during ADL tasks. 2=Patient will verbalize/demonstrate understanding of assistive devices/modifications for ADL. 3=Patient will improve strength/tolerance for activity to enable patient to perform ADL's. OT Education/Plan Problem List/Assessment Assessment: Decreased Activ Tolerance, Decreased UE Strength, Dependent Transfers, Impaired Bed Mobility, Impaired Cognition, Impaired Coordination, Impaired Funct Balance, Impaired I ADL's, Impaired Self-Care Skills, Restricted Funct UE ROM Discharge Recommendations Plan/Recommendations: Continue POC Treatment Plan/Plan of Care Patient would benefit from OT for education, treatment and training to promote independence in ADL's, mobility, safety and/or upper extremity function for ADL's. Plan of Care: ADL Retraining, Caregiver Training, Functional Mobility, Group Exercise/Act as Ind, UE Funct Exercise/Act, W/C Management Training Treatment Duration: Mar 24, 2022 Frequency: At least 5 of 7 days/Wk (IRF) Estimated Hrs Per Day: 1.5 hours per day Rehab Potential: Guarded Time/GCodes Start Time: 08:30 Stop Time: 10:00 Total Time Billed (hr/min): 90 Billed Treatment Time 1 visit-ADL 4 (60 min) FA 2 (30 min) co-treat with PT [id number], individual [id number] KATERIN MONTENEGRO Mar 14, 2022 10:12
--- NOTE | 2022-03-14 13:11 | Physical Therapy Daily Note ---
PT Daily Note-Current Subjective Patient sitting in shower chair with OT upon PT arrival, agreeable to treatment. Patient will be co-treated with OT due to patients increased need for 2 disciplines to efficiently and safely perform treatment with patient due to poor balance, increased fall risk, decline in strength and difficulty performing ADLs. OT will focus on the UEs and functional ADLS while PT will focus on LE strength and mobility ADLs. Transfers SCALE: Activities may be completed with or without assistive devices. 5-Kcpmxuewyn-rewmzil completes the activity by him/herself with no assistance from a helper. 5-Set-up or Clean-up Assistance-helper sets up or cleans up; patient completes activity. [place] assists only prior to or following the activity. 4-Supervision or Touching Assistance-helper provides verbal cues and/or touching/steadying and/or contact guard assistance as patient completes activity. Assistance may be provided throughout the activity or intermittently. 3-Partial/Moderate Assistance-helper does LESS THAN HALF the effort. [place] lift s, holds or supports trunk or limbs, but provides less than half the effort. 2-Substantial/Maximal Assistance-helper does MORE THAN HALF the effort. [place] lifts or holds trunk or limbs and provides more than half the effort. 8-Sqtpsixaw-doggdi does ALL the effort. Patient does none of the effort to complete the activity. Or, the assistance of 2 or more helpers is required for the patient to complete the activity. If activity was not attempted, code reason: 7-Patient Refused. 9-Not Applicable-not attempted and the patient did not perform the activity before the current illness, exacerbation or injury. 10-Not Attempted due to Environmental Limitations-(lack of equipment, weather restraints, etc.). 88-Not Attempted due to Medical Conditions or Safety Concerns. Roll Left & Right (QC): 3 Sit to Lying (QC): 3 Lying to Sitting/Side of Bed(Q: 3 Sit to Stand (QC): 2 Chair/Aal-qz-Jndgl Xfer(QC): 2 Toilet Transfer (QC): 2 Car Transfer (QC): 2 Weight Bearing Full Weight Bearing Gait Training Does the Patient Walk?: Yes Distance: 8 feet Gait Assistive Device: Parallel Bars Wheelchair Training Does the Pt Use a Wheelchair?: Yes Wheel 50 ft with 2 turns (QC): 4 Wheel 150 ft (QC): 4 Type of Wheelchair: Manual Stair Training Stair Training: Handrails/: uses walker #of Steps: 1 1 Step (curb) (QC): 2 Stairs: Pattern: Hops Assessment Current Status: Poor Progress Patient was co-treated with OT due to patients increased need for 2 disciplines to efficiently and safely perform treatment with patient due to poor balance, increased fall risk, decline in strength and difficulty performing ADLs. OT will focus on the UEs and functional ADLS while PT will focus on LE strength and mobility ADLs. Patient performs all observed bed mobility with min A. He performs sit to stand with max A and SPT with max A to the w/c. Patient performs dynamic standing balance with PT focus on balance and mobility, OT focus on dressing and bathing. Patient propels w/c 250 feet x 2 with SBA. Patient performs static and dynamic standing balance with mod A x 2. Patient propels w/c 250 feet back to room. Patient requires mod A x 2 for transfer into bed. Patient in w/c post treatment with all needs met, nursing notified, call light in reach. PT Short Term Goals Short Term Goals Time Frame: Mar 03, 2022 Roll Left & Right: 4 Sit to lyin (Bats[place]va) Lying to sitting on side of be: 3 (Batsheva) Sit to stand: 3 (modA) Chair/gyo-zo-segqv transfer: 3 (modA) PT Senior Living Goals Crown Buffer Goals PT Senior Living Goals Time Frame: Mar 17, 2022 Roll Left & Right (QC): 6 Sit to Lying (QC): 4 (SBA) Lying-Sitting on Side/Bed(QC): 4 (SBA) Sit to Stand (QC): 3 (Batsheva) Chair/Rxq-wu-Aypig Xfer(QC): 3 (Batsheva) Toilet Transfer (QC): 3 (Batsheva) Car Transfer (QC): 3 (Batsheva) Does the Patient Walk: No and Walking Goal NOT indicated Walk 10 feet (QC): 88 Walk 50ft with 2 Turns (QC): 88 Walk 150 ft (QC): 88 Walking 10ft on Uneven Surface: 88 1 Step (curb) (QC): 88 4 Steps (QC): 88 12 Steps (QC): 88 Picking up an Object (QC): 88 Wheel 50 feet with 2 turns (QC: 6 Wheel 150 feet: 6 PT Plan Treatment/Plan Treatment Plan: Continue Plan of Care Treatment Plan: Bed Mobility, Education, Functional Activity Lalit, Functional Strength, Group Therapy, Safety, Therapeutic Exercise, Transfers Treatment Duration: Mar 17, 2022 Frequency: At least 5 of 7 days/Wk (IRF) Estimated Hrs Per Day: 1.5 hours per day Patient and/or Family Agrees t: Yes Safety Risks/Education Patient Education: Gait Training, Transfer Techniques, W/C Management Teaching Recipient: Patient Teaching Methods: Demonstration, Discussion Response to Teaching: Verbalize Understanding, Reinforcement Needed Time/GCodes Time In: 900 Time Out: 1000 Total Billed Treatment Time: 60 Total Billed Treatment Visit, FA(3), W/C CANDI ANGELES PT Mar 14, 2022 13:11
--- NOTE | 2022-03-14 14:17 | Physical Therapy Daily Note ---
PT Daily Note-Current Subjective Patient agrees to PT. Mental Status Patient Orientation: Normal For Age Attachments: Oxygen Transfers SCALE: Activities may be completed with or without assistive devices. 2-Cxdrsjewqu-hyxpijh completes the activity by him/herself with no assistance from a helper. 5-Set-up or Clean-up Assistance-helper sets up or cleans up; patient completes activity. [place] assists only prior to or following the activity. 4-Supervision or Touching Assistance-helper provides verbal cues and/or touching/steadying and/or contact guard assistance as patient completes activity. Assistance may be provided throughout the activity or intermittently. 3-Partial/Moderate Assistance-helper does LESS THAN HALF the effort. [place] lifts, holds or supports trunk or limbs, but provides less than half the effort. 2-Substantial/Maximal Assistance-helper does MORE THAN HALF the effort. [place] lifts or holds trunk or limbs and provides more than half the effort. 4-Njoubmejw-khrmkk does ALL the effort. Patient does none of the effort to complete the activity. Or, the assistance of 2 or more helpers is required for the patient to complete the activity. If activity was not attempted, code reason: 7-Patient Refused. 9-Not Applicable-not attempted and the patient did not perform the activity before the current illness, exacerbation or injury. 10-Not Attempted due to Environmental Limitations-(lack of equipment, weather restraints, etc.). 88-Not Attempted due to Medical Conditions or Safety Concerns. Sit to Stand (QC): 3 (x 3 sets in //bars) Weight Bearing Full Weight Bearing Wheelchair Training Does the Pt Use a Wheelchair?: Yes Wheel 50 ft with 2 turns (QC): 4 Wheel 150 ft (QC): 4 Type of Wheelchair: Manual Exercises Seated Therapy Exercises: Sit to stand (3 sets standing 1.5 min each), Long arc quads (15 x 2 sets right LE), Glut set (15) Assessment Patient fatigues with activity and remains in w/c. RN in to redress left AKA dressing. Patient improving with sit to stand transfers. PT Short Term Goals Short Term Goals Time Frame: Mar 03, 2022 Roll Left & Right: 4 Sit to lyin (Batsheva) Lying to sitting on side of be: 3 (Batsheva) Sit to stand: 3 (modA) Chair/mzj-fj-abhsu transfer: 3 (modA) PT Halfway Goals Halfway Goals PT Halfway Goals Time Frame: Mar 17, 2022 Roll Left & Right (QC): 6 Sit to Lying (QC): 4 (SBA) Lying-Sitting on Side/Bed(QC): 4 (SBA) Sit to Stand (QC): 3 (Batsheva) Chair/Tno-iv-Jjwjz Xfer(QC): 3 (Bats[place]va) Toilet Transfer (QC): 3 (Batsheva) Car Transfer (QC): 3 (Batsheva) Does the Patient Walk: No and Walking Goal NOT indicated Walk 10 feet (QC): 88 Walk 50ft with 2 Turns (QC): 88 Walk 150 ft (QC): 88 Walking 10ft on Uneven Surface: 88 1 Step (curb) (QC): 88 4 Steps (QC): 88 12 Steps (QC): 88 Picking up an Object (QC): 88 Wheel 50 feet with 2 turns (QC: 6 Wheel 150 feet: 6 PT Plan Treatment/Plan Treatment Plan: Discontinue PT, goals met Treatment Plan: Bed Mobility, Education, Functional Activity Lalit, Functional Strength, Group Therapy, Safety, Therapeutic Exercise, Transfers Treatment Duration: Mar 17, 2022 Frequency: At least 5 of 7 days/Wk (IRF) Estimated Hrs Per Day: 1.5 hours per day Patient and/or Family Agrees t: Yes Time/GCodes Time In: 1345 Time Out: 1415 Total Billed Treatment Time: 30 Total Billed Treatment 1 visit FA 12 min WC 18 min DWIGHT ANTONIO PT Mar 14, 2022 14:17
[2022-03-14 20:10] VITALS: BP 127/52
[2022-03-15] MEDS: CYANOCOBALAMIN 1,000 MCG (VITAMIN B-12) TABLET PO SCH (06:04)
[2022-03-15] MEDS: GLIMEPIRIDE 1 MG (AMARYL) TAB PO SCH (06:04)
[2022-03-15] MEDS: inSUlin ASPART (NovoLOG) 1 UNIT/0.01 ML (CHARGE PER UNIT) SC SCH ×2 (06:05→13:35)
[2022-03-15] MEDS: LEVOTHYROXINE 100 MCG (LEVOTHROID) TAB PO SCH (06:05)
[2022-03-15] MEDS ORDERED: PANT40TA52 PO (06:15)
[2022-03-15] MEDS ORDERED: APIX5TAB PO (06:15)
[2022-03-15] MEDS ORDERED: GLMP1T PO (06:15)
[2022-03-15] MEDS ORDERED: HYDR-3820 PO (06:15)
[2022-03-15] MEDS ORDERED: CYAN-41 PO (06:15)
[2022-03-15] MEDS ORDERED: DOCU100C37 PO (06:15)
[2022-03-15] MEDS ORDERED: LEVO-130 PO (06:15)
[2022-03-15] MEDS ORDERED: AMIO200T65 PO (06:15)
[2022-03-15] MEDS ORDERED: POTA-160 PO (06:15)
[2022-03-15] MEDS ORDERED: FURO80TA3 PO (06:15)
[2022-03-15] MEDS ORDERED: METO50TA7 PO (06:15)
[2022-03-15] MEDS ORDERED: LOSA50TA63 PO (06:15)
[2022-03-15] MEDS ORDERED: METF-397 PO (06:15)
--- NOTE | 2022-03-15 06:17 | D/C HH Face to Face Order ---
D/C HH Face to Face Orders Reconcile Patient Problems Problems Reviewed?: Yes Instructions for Patient HH Patient Instructions/FollowUp: PCP 1 week Physician to follow Patient: PCP Discharge Diet for Home: ADA Diet Patient Problems: Left AKA Patient Data-Allergies,Ht & Wt Patient Allergies: Coded Allergies: gabapentin (Verified Allergy, Unknown, 02/22/22) nightmares lisinopril (Verified Allergy, Unknown, 02/10/22) niacin (Verified Allergy, Unknown, 02/10/22) oxycodone (Verified Allergy, Unknown, 02/10/22) rivaroxaban (Verified Allergy, Unknown, 02/10/22) Uncoded Allergies: CI Pigment Blue 63 (Adverse Reaction, Severe, Itching, 02/10/22) Home Health Need/Face to Face Date of Face to Face: Mar 15, 2022 Clinical Findings: Generalized weakness and fatigue, Instability, Muscle weakness, Non or partial weight bearing, Unsteady gait, Non-healing wound I have seen Pt ibhi-lq-yjle: Yes Discharged To: Home Diagnosis/Conditions: Left MELVINA Patient is Homebound due to: [place] fall risk due to instabilty, Muscle weakness Homebound Status Due to the above stated illness, injury or surgical procedure (medical condition or diagnosis) and associated clinical findings, the patient is homebound because of his/her inability to leave home except with aid of a supportive device and/or person AND leaving the home requires a considerable and taxing effort or is medically contraindicated. Pt req the following assistanc: Walker, Wheelchair Home Health Nursing Orders Home Health Services Order: Nursing Services, Warehouse Analyst-Evaluate & Treat, Physical Therapy-Evaluate & Treat, Wound Care-Eval/Treat Home Health Infusion Therapy Line Start Date: Feb 27, 2022 Certify Stmt I certify that this patient is under my care and that I, a nurse practitioner or a physician; a pharmacist assistant working with me, had a face to face encounter that - meets the physician face to face encounter requirements with this patient as dated. XIOMARA DICKENS DO Mar 15, 2022 06:17
--- NOTE | 2022-03-15 06:18 | Discharge Summary ---
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 02/07/22 Fall 02/21/22 resulting in left shoulder injury causing further debility and limiting ADL/independence Severe PVD PAF OAC HTN HLP DM Hypothyroidism Previous hypoglycemia required holding metformin and glimepiride but now on lower dose Constipation resolved Poor venous access requiring PICC 02/27/22 Anemia post op requiring transfusion 03/01/22 Volume overload CHF requiring IV Lasix 03/06/2022 Infected left stump with Pseudomonas started on abx Zosyn 03/08 Iron deficiency receiving iron infusions Plan: PT OT w/c mobility Home meds 02/26/2022: Pain control Monitor sugar Hold Metformin 02/27/22: Empiric broad spectrum abx Hold Metformin and OAC PICC line 02/28/2022: IV abx Monitor closely 03/01/2022: Transfuse Broad spectrum abx 03/02/2022: Monitor hgb Broad spectrum abx 03/03/2022: IV abx Monitor hgb 03/04/2022: DC Melatonin IV abx 03/05/2022: Monitor closely Check labs in am 03/06/2022: IV Lasix Oxygen 03/07/2022: Monitor labs 03/08/22: Abx 03/09/2022: Zosyn 03/10/2022: Monitor pain 03/11/2022: Continue abx 03/12/2022: Venofer 03/13/2022: Home O2 eval 03/14/2022: Home O2 eval (1) S/P AKA (above knee amputation) (2) Gangrene Discharge Summary Discharge Physical Examination Allergies: Coded Allergies: gabapentin (Verified Allergy, Unknown, 02/22/22) nightmares lisinopril (Verified Allergy, Unknown, 02/10/22) niacin (Verified Allergy, Unknown, 02/10/22) oxycodone (Verified Allergy, Unknown, 02/10/22) rivaroxaban (Verified Allergy, Unknown, 02/10/22) Uncoded Allergies: CI Pigment Blue 63 (Adverse Reaction, Severe, Itching, 02/10/22) Vitals & I&Os Vital Signs Date Time Temp Pulse Resp B/P (MAP) Pulse Ox O2 Delivery O2 Flow Rate FiO2 03/15/22 13:00 36.6 82 18 143/65 90 Nasal Cannula 1.50 General Appearance: Alert, Oriented X3, Cooperative, Other (chronically ill and pale and fatigued) Respiratory: Clear to Auscultation Cardiovascular: Regular Rate Psych/Mental Status: Mental Status NL Hospital Course Was the Problem List Reviewed?: Yes Lengthy course after he was readmitted 3 days after he was DC when he was readmitted following a fall at home and subsequent left AKA on BKA due to gangrenous tissue. He responded to therapy and required blood transfusion along with IV iron and adjustment to his DM meds. Overall he was able to regain function with use of Dex lift and wheelchair mobility. His and patient were comfortable DC home with HH with family help. Labs (last 24 hrs) Laboratory Tests 02/24/22 11:22: Lab Scanned Report Referred Lab Report 02/24/22 16:37: Glucometer 151H 02/24/22 20:27: Glucometer 127H 02/25/22 05:26: White Blood Count 15.6H, Red Blood Count 3.79L, Hemoglobin 9.4L, Hematocrit 32L, Mean Corpuscular Volume 85, Mean Corpuscular Hemoglobin 25, Mean Corpuscular Hemoglobin Concent 29L, Red Cell Distribution Width 18.7H, Platelet Count 274, Mean Platelet Volume 12.1, Immature Granulocyte % (Auto) 1, Neutrophils (%) (Auto) 85H, Lymphocytes (%) (Auto) 5L, Monocytes (%) (Auto) 9, Eosinophils (%) (Auto) 0, Basophils (%) (Auto) 0, Neutrophils # (Auto) 13.2H, Lymphocytes # (Auto) 0.8L, Monocytes # (Auto) 1.4H, Eosinophils # (Auto) 0.0, Basophils # (Auto) 0.0, Immature Granulocyte # (Auto) 0.1, Sodium Level 135, Potassium Level 3.5L, Chloride Level 97L, Carbon Dioxide Level 24, Anion Gap 14, Blood Urea Nitrogen 15, Creatinine 0.80, Estimat Glomerular Filtration Rate 95, BUN/Creatinine Ratio 19, Glucose Level 84, Calcium Level 9.1, Corrected Calcium 9.8, Total Bilirubin 0.9, Aspartate Amino Transf (AST/SGOT) 55H, Alanine Aminotransferase (ALT/SGPT) 31, Alkaline Phosphatase 85, Total Protein 6.9, Albumin 3.1L 02/25/22 10:58: Glucometer 113H 02/25/22 15:21: Glucometer 103 02/25/22 20:15: Glucometer 104 02/26/22 06:33: Glucometer 66L 02/26/22 07:20: Glucometer 121H 02/26/22 11:08: Glucometer 94 02/26/22 16:38: Glucometer 70 02/26/22 20:22: Glucometer 93 02/27/22 05:28: White Blood Count 19.6H, Red Blood Count 3.57L, Hemoglobin 8.9L, Hematocrit 30L, Mean Corpuscular Volume 85, Mean Corpuscular Hemoglobin 25, Mean Corpuscular Hemoglobin Concent 29L, Red Cell Distribution Width 18.6H, Platelet Count 237, Mean Platelet Volume 12.3H, Immature Granulocyte % (Auto) 5, Neutrophils (%) (Auto) 81H, Lymphocytes (%) (Auto) 5L, Monocytes (%) (Auto) 8, Eosinophils (%) (Auto) 1, Basophils (%) (Auto) 0, Neutrophils # (Auto) 15.9H, Lymphocytes # (Auto) 1.1, Monocytes # (Auto) 1.5H, Eosinophils # (Auto) 0.1, Basophils # (Auto) 0.1, Immature Granulocyte # (Auto) 1.0H, Sodium Level 131L, Potassium Level 4.0, Chloride Level 96L, Carbon Dioxide Level 23, Anion Gap 12, Blood Urea Nitrogen 34H, Creatinine 1.10, Estimat Glomerular Filtration Rate 72, BUN/Creatinine Ratio 31, Glucose Level 88, Calcium Level 8.6, Corrected Calcium 9.6, Total Bilirubin 0.6, Aspartate Amino Transf (AST/SGOT) 99H, Alanine Aminotransferase (ALT/SGPT) 50, Alkaline Phosphatase 93, Total Protein 6.2L, Albumin 2.7L, Procalcitonin 1.19H 02/27/22 10:12: Urine Color YELLOW, Urine Clarity CLEAR, Urine pH 5.5, Urine Specific [place] 1.010L, Urine Protein NEGATIVE, Urine Glucose (UA) NEGATIVE, Urine Ketones NEGATIVE, Urine Nitrite NEGATIVE, Urine Bilirubin NEGATIVE, Urine Urobilinogen 1.0, Urine Leukocyte Esterase NEGATIVE, Urine RBC (Auto) NEGATIVE, Urine RBC NONE, Urine WBC 0-2, Urine Squamous Epithelial Cells NONE, Urine Crystals PRESENTH, Urine Amorphous Sediment FEW [place] URATESH, Urine Bacteria TRACE, Urine Casts NONE, Urine Mucus NEGATIVE, Urine Culture Indicated NO 02/27/22 12:08: Glucometer 138H 02/27/22 16:23: Glucometer 126H 02/27/22 21:08: Glucometer 108 02/28/22 05:55: Glucometer 116H 02/28/22 06:55: White Blood Count 15.6H, Red Blood Count 3.01L, Hemoglobin 7.4L, Hematocrit 25L, Mean Corpuscular Volume 82, Mean Corpuscular Hemoglobin 25, Mean Corpuscular Hemoglobin Concent 30L, Red Cell Distribution Width 18.4H, Platelet Count 227, Mean Platelet Volume 11.8, Immature Granulocyte % (Auto) 1, Neutrophils (%) (Auto) 88H, Lymphocytes (%) (Auto) 4L, Monocytes (%) (Auto) 6, Eosinophils (%) (Auto) 1, Basophils (%) (Auto) 0, Neutrophils # (Auto) 13.7H, Lymphocytes # (Auto) 0.6L, Monocytes # (Auto) 0.9, Eosinophils # (Auto) 0.1, Basophils # (Auto) 0.0, Immature Granulocyte # (Auto) 0.2H, Sodium Level 133L, Potassium Level 4.3, Chloride Level 98, Carbon Dioxide Level 22, Anion Gap 13, Blood Urea Nitrogen 38H, Creatinine 1.02, Estimat Glomerular Filtration Rate 79, BUN/Creatinine Ratio 37, Glucose Level 115H, Calcium Level 8.2L, Corrected Calcium 9.6, Total Bilirubin 0.5, Aspartate Amino Transf (AST/SGOT) 90H, Alanine Aminotransferase (ALT/SGPT) 56H, Alkaline Phosphatase 70, Total Protein 5.1L, Albumin 2.3L, Procalcitonin 0.78H 02/28/22 11:04: Glucometer 142H 02/28/22 16:31: Glucometer 165H 02/28/22 20:22: Glucometer 125H 03/01/22 05:39: Glucometer 116H 03/01/22 06:40: White Blood Count 17.0H, Red Blood Count 3.01L, Hemoglobin 7.3L, Hematocrit 25L, Mean Corpuscular Volume 82, Mean Corpuscular Hemoglobin 24L, Mean Corpuscular Hemoglobin Concent 29L, Red Cell Distribution Width 18.3H, Platelet Count 256, Mean Platelet Volume 12.1, Immature Granulocyte % (Auto) 1, Neutrophils (%) (Auto) 89H, Lymphocytes (%) (Auto) 3L, Monocytes (%) (Auto) 5, Eosinophils (%) (Auto) 1, Basophils (%) (Auto) 0, Neutrophils # (Auto) 15.1H, Lymphocytes # (Auto) 0.6L, Monocytes # (Auto) 0.9, Eosinophils # (Auto) 0.2, Basophils # (Auto) 0.1, Immature Granulocyte # (Auto) 0.2H, Sodium Level 132L, Potassium Level 4.0, Chloride Level 102, Carbon Dioxide Level 22, Anion Gap 8, Blood Urea Nitrogen 26H, Creatinine 0.77, Estimat Glomerular Filtration Rate 96, BUN/Creatinine Ratio 34, Glucose Level 117H, Calcium Level 8.2L, Corrected Calcium 9.5, Iron Level 9L, Total Bilirubin 0.5, Aspartate Amino Transf (AST/SGOT) 65H, Alanine Aminotransferase (ALT/SGPT) 51, Alkaline Phosphatase 87, Total Protein 5.5L, Albumin 2.4L, Vitamin B12 Level 565 03/01/22 09:00: Vancomycin Level Trough 9.1L 03/01/22 10:45: Glucometer 180H 03/01/22 16:03: Glucometer 167H 03/01/22 17:37: Glucometer 140H 03/01/22 20:33: Glucometer 138H 03/02/22 05:24: Glucometer 120H 03/02/22 06:50: White Blood Count 16.2H, Red Blood Count 3.47L, Hemoglobin 8.5L, Hematocrit 28L, Mean Corpuscular Volume 82, Mean Corpuscular Hemoglobin 25, Mean Corpuscular Hemoglobin Concent 30L, Red Cell Distribution Width 18.6H, Platelet Count 259, Mean Platelet Volume 11.2, Immature Granulocyte % (Auto) 2, Neutrophils (%) (Auto) 86H, Lymphocytes (%) (Auto) 5L, Monocytes (%) (Auto) 5, Eosinophils (%) (Auto) 2, Basophils (%) (Auto) 0, Neutrophils # (Auto) 14.0H, Lymphocytes # (Auto) 0.7L, Monocytes # (Auto) 0.8, Eosinophils # (Auto) 0.3, Basophils # (Auto) 0.1, Immature Granulocyte # (Auto) 0.3H, Neutrophils % (Manual) 90, Lymphocytes % (Manual) 3, Monocytes % (Manual) 4, Eosinophils % (Manual) 2, Band Neutrophils 1, Hypochromasia MODERATE, Anisocytosis MODERATE, Sodium Level 138, Potassium Level 3.7, Chloride Level 105, Carbon Dioxide Level 21, Anion Gap 12, Blood Urea Nitrogen 18, Creatinine 0.70, Estimat Glomerular Filtration Rate 99, BUN/Creatinine Ratio 26, Glucose Level 127H, Calcium Level 8.3L, Corrected Calcium 9.7, Total Bilirubin 0.5, Aspartate Amino Transf (AST/SGOT) 45H, Alanine Aminotransferase (ALT/SGPT) 49, Alkaline Phosphatase 94, Total Protein 5.6L, Albumin 2.3L 03/02/22 10:47: Glucometer 176H 03/02/22 15:40: Glucometer 162H 03/02/22 21:10: Glucometer 176H 03/03/22 05:39: Glucometer 108 03/03/22 07:45: White Blood Count 14.8H, Red Blood Count 3.66L, Hemoglobin 8.9L, Hematocrit 30L, Mean Corpuscular Volume 82, Mean Corpuscular Hemoglobin 24L, Mean Corpuscular Hemoglobin Concent 30L, Red Cell Distribution Width 18.8H, Platelet Count 304, Mean Platelet Volume 11.2, Immature Granulocyte % (Auto) 3, Neutrophils (%) (Auto) 86H, Lymphocytes (%) (Auto) 6L, Monocytes (%) (Auto) 4, Eosinophils (%) (Auto) 2, Basophils (%) (Auto) 0, Neutrophils # (Auto) 12.7H, Lymphocytes # (Auto) 0.8L, Monocytes # (Auto) 0.6, Eosinophils # (Auto) 0.2, Basophils # (Auto) 0.1, Immature Granulocyte # (Auto) 0.4H, Sodium Level 140, Potassium Level 3.6, Chloride Level 106, Carbon Dioxide Level 22, Anion Gap 12, Blood Urea Nitrogen 14, Creatinine 0.68, Estimat Glomerular Filtration Rate 99, BUN/Creatinine Ratio 21, Glucose Level 163H, Calcium Level 8.4L, Corrected Calcium 9.7, Total Bilirubin 0.4, Aspartate Amino Transf (AST/SGOT) 31, Alanine Aminotransferase (ALT/SGPT) 44, Alkaline Phosphatase 94, Total Protein 5.7L, Albumin 2.4L 03/03/22 10:53: Glucometer 221H 03/03/22 15:25: Glucometer 215H 03/03/22 20:28: Glucometer 220H 03/04/22 06:18: Glucometer 138H 03/04/22 09:00: Vancomycin Level Trough 11.0 03/04/22 10:49: Glucometer 205H 03/04/22 15:17: Glucometer 187H 03/04/22 20:10: Glucometer 205H 03/05/22 06:23: Glucometer 165H 03/05/22 11:19: Glucometer 239H 03/05/22 15:10: Glucometer 204H 03/05/22 16:10: Vancomycin Level Trough 23.0H 03/05/22 20:31: Glucometer 227H 03/06/22 05:10: White Blood Count 20.1H, Red Blood Count 4.20L, Hemoglobin 10.2L, Hematocrit 35L , Mean Corpuscular Volume 84, Mean Corpuscular Hemoglobin 24L, Mean Corpuscular Hemoglobin Concent 29L, Red Cell Distribution Width 18.7H, Platelet Count 364, Mean Platelet Volume 10.6, Immature Granulocyte % (Auto) 2, Neutrophils (%) (Auto) 90H, Lymphocytes (%) (Auto) 4L, Monocytes (%) (Auto) 3, Eosinophils (%) (Auto) 0, Basophils (%) (Auto) 0, Neutrophils # (Auto) 18.2H, Lymphocytes # (Auto) 0.8L, Monocytes # (Auto) 0.6, Eosinophils # (Auto) 0.1, Basophils # (Auto) 0.1, Immature Granulocyte # (Auto) 0.4H, Sodium Level 139, Potassium Level 3.9, Chloride Level 101, Carbon Dioxide Level 26, Anion Gap 12, Blood Urea Nitrogen 9, Creatinine 0.67, Estimat Glomerular Filtration Rate 100, BUN/Creatinine Ratio 13, Glucose Level 241H, Calcium Level 9.2, Corrected Ca lcium 10.1, Total Bilirubin 0.4, Aspartate Amino Transf (AST/SGOT) 22, Alanine Aminotransferase (ALT/SGPT) 31, Alkaline Phosphatase 97, B-Type Natriuretic Peptide 913.4H, Total Protein 6.6, Albumin 2.9L 03/06/22 06:51: Procalcitonin 0.07 03/06/22 08:46: Blood Gas Puncture Site L RAD, Blood Gas Patient Temperature 37, Arterial Blood pH 7.40, Arterial Blood Partial Pressure CO2 52H, Arterial Blood Partial Pressure O2 79, Arterial Blood HCO3 31H, Arterial Blood Total CO2 33.0H, Arterial Blood Oxygen Saturation 96, Arterial Blood Base Excess 6.6H, Ramesh Test YES-POS, Blood Gas Ventilator Setting NO, Blood Gas Inspired Oxygen 3 03/06/22 08:55: Lactic Acid Level 1.28 03/06/22 10:54: Glucometer 253H 03/06/22 15:22: Glucometer 185H 03/06/22 20:10: Glucometer 218H 03/07/22 05:28: White Blood Count 12.9H, Red Blood Count 3.90L, Hemoglobin 9.5L, Hematocrit 32L, Mean Corpuscular Volume 83, Mean Corpuscular Hemoglobin 24L, Mean Corpuscular Hemoglobin Concent 29L, Red Cell Distribution Width 18.6H, Platelet Count 348, Mean Platelet Volume 10.4, Sodium Level 143, Potassium Level 3.6, Chloride Level 101, Carbon Dioxide Level 29, Anion Gap 13, Blood Urea Nitrogen 9, Creatinine 0.67, Estimat Glomerular Filtration Rate 100, BUN/Creatinine Ratio 13, Glucose Level 188H, Calcium Level 9.1, Magnesium Level 1.6 03/07/22 10:54: Glucometer 199H 03/07/22 15:33: Glucometer 173H 03/07/22 20:10: Glucometer 200H 03/08/22 05:47: Glucometer 166H 03/08/22 06:25: White Blood Count 14.7H, Red Blood Count 3.92L, Hemoglobin 9.7L, Hematocrit 33L, Mean Corpuscular Volume 83, Mean Corpuscular Hemoglobin 25, Mean Corpuscular Hemoglobin Concent 30L, Red Cell Distribution Width 18.6H, Platelet Count 359, Mean Platelet Volume 10.4, Immature Granulocyte % (Auto) 1, Neutrophils (%) (Auto) 88H, Lymphocytes (%) (Auto) 6L, Monocytes (%) (Auto) 4, Eosinophils (%) (Auto) 1, Basophils (%) (Auto) 0, Neutrophils # (Auto) 13.0H, Lymphocytes # (Auto) 0.9L, Monocytes # (Auto) 0.5, Eosinophils # (Auto) 0.1, Basophils # (Auto) 0.1, Immature Granulocyte # (Auto) 0.1, Neutrophils % (Manual) 90, Lymphocytes % (Manual) 8, Monocytes % (Manual) 2, Hypochromasia MODERATE, Poikilocytosis , Anisocytosis SLIGHT, Microcytosis SLIGHT, Stomatocytes SLIGHT, Sodium Level 141, Potassium Level 4.0, Chloride Level 99, Carbon Dioxide Level 31, Anion Gap 11, Blood Urea Nitrogen 10, Creatinine 0.69, Estimat Glomerular Filtration Rate 99, BUN/Creatinine Ratio 14, Glucose Level 206H, Calcium Level 9.3, Corrected Calcium 10.3H, Total Bilirubin 0.4, Aspartate Amino Transf (AST/SGOT) 19, Alanine Aminotransferase (ALT/SGPT) 21, Alkaline Phosphatase 79, Total Protein 6.3L, Albumin 2.8L 03/08/22 11:01: Glucometer 219H 03/08/22 16:20: Glucometer 166H 03/08/22 20:25: Glucometer 170H 03/09/22 05:49: Glucometer 134H 03/09/22 06:20: White Blood Count 14.0H, Red Blood Count 3.81L, Hemoglobin 9.3L, Hematocrit 32L, Mean Corpuscular Volume 83, Mean Corpuscular Hemoglobin 24L, Mean Corpuscular Hemoglobin Concent 29L, Red Cell Distribution Width 18.5H, Platelet Count 355, Mean Platelet Volume 10.6, Immature Granulocyte % (Auto) 1, Neutrophils (%) (Auto) 89H, Lymphocytes (%) (Auto) 6L, Monocytes (%) (Auto) 4, Eosinophils (%) (Auto) 1, Basophils (%) (Auto) 0, Neutrophils # (Auto) 12.4H, Lymphocytes # (Auto) 0.8L, Monocytes # (Auto) 0.5, Eosinophils # (Auto) 0.1, Basophils # (Auto) 0.1, Immature Granulocyte # (Auto) 0.1, Sodium Level 140, Potassium Level 3.7, Chloride Level 99, Carbon Dioxide Level 31, Anion Gap 10, Blood Urea Nitrogen 11, Creatinine 0.76, Estimat Glomerular Filtration Rate 96, BUN/Creatinine Ratio 14, Glucose Level 151H, Calcium Level 9.1, Corrected Calcium 10.1, Total Bilirubin 0.4, Aspartate Amino Transf (AST/SGOT) 15, Alanine Aminotransferase (ALT/SGPT) 18, Alkaline Phosphatase 71, Total Protein 6.1L, Albumin 2.7L 03/09/22 10:45: Glucometer 178H 03/09/22 15:57: Glucometer 171H 03/09/22 20:20: Glucometer 180H 03/10/22 05:28: Glucometer 107 03/10/22 10:58: Glucometer 190H 03/10/22 15:17: Glucometer 172H 03/10/22 20:34: Glucometer 233H 03/11/22 05:35: White Blood Count 11.2H, Red Blood Count 3.67L, Hemoglobin 9.0L, Hematocrit 31L, Mean Corpuscular Volume 84, Mean Corpuscular Hemoglobin 25, Mean Corpuscular Hemoglobin Concent 29L, Red Cell Distribution Width 18.6H, Platelet Count 327, Mean Platelet Volume 10.9, Immature Granulocyte % (Auto) 1, Neutrophils (%) (Auto) 85H, Lymphocytes (%) (Auto) 7L, Monocytes (%) (Auto) 6, Eosinophils (%) (Auto) 1, Basophils (%) (Auto) 1, Neutrophils # (Auto) 9.5H, Lymphocytes # (Auto) 0.8L, Monocytes # (Auto) 0.7, Eosinophils # (Auto) 0.2, Basophils # (Auto) 0.1, Immature Granulocyte # (Auto) 0.1, Sodium Level 144, Potassium Level 3.7, Chloride Level 102, Carbon Dioxide Level 29, Anion Gap 13, Blood Urea Nitrogen 10, Creatinine 0.76, Estimat Glomerular Filtration Rate 96, BUN/Creatinine Ratio 13, Glucose Level 102, Calcium Level 9.0, Corrected Calcium 10.0, Total Bilirubin 0.3, Aspartate Amino Transf (AST/SGOT) 16, Alanine Aminotransferase (ALT/SGPT) 17, Alkaline Phosphatase 66, Total Protein 6.0L, Albumin 2.7L 03/11/22 11:16: Glucometer 192H 03/11/22 16:00: Glucometer 173H 03/11/22 20:41: Glucometer 174H 03/12/22 05:01: Glucometer 112H 03/12/22 11:06: Glucometer 159H 03/12/22 15:26: Glucometer 170H 03/12/22 20:08: Glucometer 174H 03/13/22 04:05: White Blood Count 10.9, Red Blood Count 3.59L, Hemoglobin 8.8L, Hematocrit 30L, Mean Corpuscular Volume 85, Mean Corpuscular Hemoglobin 25, Mean Corpuscular Hem oglobin Concent 29L, Red Cell Distribution Width 19.3H, Platelet Count 295, Mean Platelet Volume 10.5, Immature Granulocyte % (Auto) 1, Neutrophils (%) (Auto) 81H, Lymphocytes (%) (Auto) 9L, Monocytes (%) (Auto) 7, Eosinophils (%) (Auto) 2, Basophils (%) (Auto) 1, Neutrophils # (Auto) 8.8H, Lymphocytes # (Auto) 1.0, Monocytes # (Auto) 0.8, Eosinophils # (Auto) 0.2, Basophils # (Auto) 0.1, Immature Granulocyte # (Auto) 0.1, Sodium Level 142, Potassium Level 3.7, Chloride Level 102, Carbon Dioxide Level 29, Anion Gap 11, Blood Urea Nitrogen 1 3, Creatinine 0.78, Estimat Glomerular Filtration Rate 95, BUN/Creatinine Ratio 17, Glucose Level 110H, Calcium Level 9.2, Corrected Calcium 10.2H, Total Bilirubin 0.4, Aspartate Amino Transf (AST/SGOT) 19, Alanine Aminotransferase (ALT/SGPT) 13, Alkaline Phosphatase 63, Total Protein 6.2L, Albumin 2.8L 03/13/22 10:39: Glucometer 249H 03/13/22 15:26: Glucometer 183H 03/13/22 20:07: Glucometer 146H 03/14/22 05:31: Glucometer 110 03/14/22 10:51: Glucometer 226H 03/14/22 15:33: Glucometer 178H 03/14/22 20:08: Glucometer 193H 03/15/22 05:32: Glucometer 113H 03/15/22 17:47: Lab Scanned Report Transfusion Reaction Form Microbiology 03/06/22 Gram Stain - Final, Complete 03/06/22 Wound Culture - Final, Complete Serratia marcescens Pseudomonas species 02/27/22 Blood Culture - Final, Complete No growth Pending Labs Microbiology Date/Time Source Procedure Growth Status 03/06/22 14:45 Incision Leg, Left Gram Stain - Final Complete 03/06/22 14:45 Wound Culture - Final Serratia marcescens Pseudomonas species Complete 02/27/22 11:50 Blood Not Indicated On Bottle Blood Culture - Final No growth Complete 02/27/22 10:55 Peripheral Peripheral, Nos Blood Culture - Final No growth Complete Laboratory Tests 02/24/22 11:22: Lab Scanned Report Referred Lab Report 02/24/22 16:37: Glucometer 151 02/24/22 20:27: Glucometer 127 02/25/22 05:26: White Blood Count 15.6, Red Blood Count 3.79, Hemoglobin 9.4, Hematocrit 32, Mean Corpuscular Volume 85, Mean Corpuscular Hemoglobin 25, Mean Corpuscular Hemoglobin Concent 29, Red Cell Distribution Width 18.7, Platelet Count 274, Mean Platelet Volume 12.1, Immature Granulocyte % (Auto) 1, Neutrophils (%) (Auto) 85, Lymphocytes (%) (Auto) 5, Monocytes (%) (Auto) 9, Eosinophils (%) (Auto) 0, Basophils (%) (Auto) 0, Neutrophils # (Auto) 13.2, Lymphocytes # (Auto) 0.8, Monocytes # (Auto) 1.4, Eosinophils # (Auto) 0.0, Basophils # (Auto) 0.0, Immature Granulocyte # (Auto) 0.1, Sodium Level 135, Potassium Level 3.5, Chloride Level 97, Carbon Dioxide Level 24, Anion Gap 14, Blood Urea Nitrogen 15, Creatinine 0.80, Estimat Glomerular Filtration Rate 95, BUN/Creatinine Ratio 19, Glucose Level 84, Calcium Level 9.1, Corrected Calcium 9.8, Total Bilirubin 0.9, Aspartate Amino Transf (AST/SGOT) 55, Alanine Aminotransferase (ALT/SGPT) 31, Alkaline Phosphatase 85, Total Protein 6.9, Albumin 3.1 02/25/22 10:58: Glucometer 113 02/25/22 15:21: Glucometer 103 02/25/22 20:15: Glucometer 104 02/26/22 06:33: Glucometer 66 02/26/22 07:20: Glucometer 121 02/26/22 11:08: Glucometer 94 02/26/22 16:38: Glucometer 70 02/26/22 20:22: Glucometer 93 02/27/22 05:28: White Blood Count 19.6, Red Blood Count 3.57, Hemoglobin 8.9, Hematocrit 30, Mean Corpuscular Volume 85, Mean Corpuscular Hemoglobin 25, Mean Corpuscular Hemoglobin Concent 29, Red Cell Distribution Width 18.6, Platelet Count 237, Mean Platelet Volume 12.3, Immature Granulocyte % (Auto) 5, Neutrophils (%) (Auto) 81, Lymphocytes (%) (Auto) 5, Monocytes (%) (Auto) 8, Eosinophils (%) (Auto) 1, Basophils (%) (Auto) 0, Neutrophils # (Auto) 15.9, Lymphocytes # (Auto) 1.1, Monocytes # (Auto) 1.5, Eosinophils # (Auto) 0.1, Basophils # (Auto) 0.1, Immature Granulocyte # (Auto) 1.0, Sodium Level 131, Potassium Level 4.0, Chloride Level 96, Carbon Dioxide Level 23, Anion Gap 12, Blood Urea Nitrogen 34, Creatinine 1.10, Estimat Glomerular Filtration Rate 72, BUN/Creatinine Ratio 31, Glucose Level 88, Calcium Level 8.6, Corrected Calcium 9.6, Total Bilirubin 0.6, Aspartate Amino Transf (AST/SGOT) 99, Alanine Aminotransferase (ALT/SGPT) 50, Alkaline Phosphatase 93, Total Protein 6.2, Albumin 2.7, Procalcitonin 1.19 02/27/22 10:12: Urine Color YELLOW, Urine Clarity CLEAR, Urine pH 5.5, Urine Specific [place] 1.010, Urine Protein NEGATIVE, Urine Glucose (UA) NEGATIVE, Urine Ketones NEGATIVE, Urine Nitrite NEGATIVE, Urine Bilirubin NEGATIVE, Urine Urobilinogen 1.0, Urine Leukocyte Esterase NEGATIVE, Urine RBC (Auto) NEGATIVE, Urine RBC NONE, Urine WBC 0-2, Urine Squamous Epithelial Cells NONE, Urine Crystals PRESENT, Urine Amorphous Sediment FEW [place] URATES, Urine Bacteria TRACE, Urine Casts NONE, Urine Mucus NEGATIVE, Urine Culture Indicated NO 02/27/22 12:08: Glucometer 138 02/27/22 16:23: Glucometer 126 02/27/22 21:08: Glucometer 108 02/28/22 05:55: Glucometer 116 02/28/22 06:55: White Blood Count 15.6, Red Blood Count 3.01, Hemoglobin 7.4, Hematocrit 25, Mean Corpuscular Volume 82, Mean Corpuscular Hemoglobin 25, Mean Corpuscular Hemoglobin Concent 30, Red Cell Distribution Width 18.4, Platelet Count 227, Mean Platelet Volume 11.8, Immature Granulocyte % (Auto) 1, Neutrophils (%) (Auto) 88, Lymphocytes (%) (Auto) 4, Monocytes (%) (Auto) 6, Eosinophils (%) (Auto) 1, Basophils (%) (Auto) 0, Neutrophils # (Auto) 13.7, Lymphocytes # (Auto) 0.6, Monocytes # (Auto) 0.9, Eosinophils # (Auto) 0.1, Basophils # (Auto) 0.0, Immature Granulocyte # (Auto) 0.2, Sodium Level 133, Potassium Level 4.3, Chloride Level 98, Carbon Dioxide Level 22, Anion Gap 13, Blood Urea Nitrogen 38, Creatinine 1.02, Estimat Glomerular Filtration Rate 79, BUN/Creatinine Ratio 37, Glucose Level 115, Calcium Level 8.2, Corrected Calcium 9.6, Total Bilirubin 0.5, Aspartate Amino Transf (AST/SGOT) 90, Alanine Aminotransferase (ALT/SGPT) 56, Alkaline Phosphatase 70, Total Protein 5.1, Albumin 2.3, Procalcitonin 0.78 02/28/22 11:04: Glucometer 142 02/28/22 16:31: Glucometer 165 02/28/22 20:22: Glucometer 125 03/01/22 05:39: Glucometer 116 03/01/22 06:40: White Blood Count 17.0, Red Blood Count 3.01, Hemoglobin 7.3, Hematocrit 25, Mean Corpuscular Volume 82, Mean Corpuscular Hemoglobin 24, Mean Corpuscular Hemoglobin Concent 29, Red Cell Distribution Width 18.3, Platelet Count 256, Mean Platelet Volume 12.1, Immature Granulocyte % (Auto) 1, Neutrophils (%) (Auto) 89, Lymphocytes (%) (Auto) 3, Monocytes (%) (Auto) 5, Eosinophils (%) (Auto) 1, Basophils (%) (Auto) 0, Neutrophils # (Auto) 15.1, Lymphocytes # (Auto) 0.6, Monocytes # (Auto) 0.9, Eosinophils # (Auto) 0.2, Basophils # (Auto) 0.1, Immature Granulocyte # (Auto) 0.2, Sodium Level 132, Potassium Level 4.0, Chloride Level 102, Carbon Dioxide Level 22, Anion Gap 8, Blood Urea Nitrogen 26, Creatinine 0.77, Estimat Glomerular Filtration Rate 96, BUN/Creatinine Ratio 34, Glucose Level 117, Calcium Level 8.2, Corrected Calcium 9.5, Iron Level 9, Total Bilirubin 0.5, Aspartate Amino Transf (AST/SGOT) 65, Alanine Aminotransferase (ALT/SGPT) 51, Alkaline Phosphatase 87, Total Protein 5.5, Albumin 2.4, Vitamin B12 Level 565 03/01/22 09:00: Vancomycin Level Trough 9.1 03/01/22 10:45: Glucometer 180 03/01/22 16:03: Glucometer 167 03/01/22 17:37: Glucometer 140 03/01/22 20:33: Glucometer 138 03/02/22 05:24: Glucometer 120 03/02/22 06:50: White Blood Count 16.2, Red Blood Count 3.47, Hemoglobin 8.5, Hematocrit 28, Mean Corpuscular Volume 82, Mean Corpuscular Hemoglobin 25, Mean Corpuscular Hemoglobin Concent 30, Red Cell Distribution Width 18.6, Platelet Count 259, Mean Platelet Volume 11.2, Immature Granulocyte % (Auto) 2, Neutrophils (%) (Auto) 86, Lymphocytes (%) (Auto) 5, Monocytes (%) (Auto) 5, Eosinophils (%) (Auto) 2, Basophils (%) (Auto) 0, Neutrophils # (Auto) 14.0, Lymphocytes # (Auto) 0.7, Monocytes # (Auto) 0.8, Eosinophils # (Auto) 0.3, Basophils # (Auto) 0.1, Immature Granulocyte # (Auto) 0.3, Neutrophils % (Manual) 90, Lymphocytes % (Manual) 3, Monocytes % (Manual) 4, Eosinophils % (Manual) 2, Band Neutrophils 1, Hypochromasia MODERATE, Anisocytosis MODERATE, Sodium Level 138, Potassium Level 3.7, Chloride Level 105, Carbon Dioxide Level 21, Anion Gap 12, Blood Urea Nitrogen 18, Creatinine 0.70, Estimat Glomerular Filtration Rate 99, BUN/Creatinine Ratio 26, Glucose Level 127, Calcium Level 8.3, Corrected Calcium 9.7, Total Bilirubin 0.5, Aspartate Amino Transf (AST/SGOT) 45, Alanine Aminotransferase (ALT/SGPT) 49, Alkaline Phosphatase 94, Total Protein 5.6, Albumin 2.3 03/02/22 10:47: Glucometer 176 03/02/22 15:40: Glucometer 162 03/02/22 21:10: Glucometer 176 03/03/22 05:39: Glucometer 108 03/03/22 07:45: White Blood Count 14.8, Red Blood Count 3.66, Hemoglobin 8.9, Hematocrit 30, Mean Corpuscular Volume 82, Mean Corpuscular Hemoglobin 24, Mean Corpuscular Hemoglobin Concent 30, Red Cell Distribution Width 18.8, Platelet Count 304, Mean Platelet Volume 11.2, Immature Granulocyte % (Auto) 3, Neutrophils (%) (Auto) 86, Lymphocytes (%) (Auto) 6, Monocytes (%) (Auto) 4, Eosinophils (%) (Auto) 2, Basophils (%) (Auto) 0, Neutrophils # (Auto) 12.7, Lymphocytes # (Auto) 0.8, Monocytes # (Auto) 0.6, Eosinophils # (Auto) 0.2, Basophils # (Auto) 0.1, Immature Granulocyte # (Auto) 0.4, Sodium Level 140, Potassium Level 3.6, Chloride Level 106, Carbon Dioxide Level 22, Anion Gap 12, Blood Urea Nitrogen 14, Creatinine 0.68, Estimat Glomerular Filtration Rate 99, BUN/Creatinine Ratio 21, Glucose Level 163, Calcium Level 8.4, Corrected Calcium 9.7, Total Bilirubin 0.4, Aspartate Amino Transf (AST/SGOT) 31, Alanine Aminotransferase (ALT/SGPT) 44, Alkaline Phosphatase 94, Total Protein 5.7, Albumin 2.4 03/03/22 10:53: Glucometer 221 03/03/22 15:25: Glucometer 215 03/03/22 20:28: Glucometer 220 03/04/22 06:18: Glucometer 138 03/04/22 09:00: Vancomycin Level Trough 11.0 03/04/22 10:49: Glucometer 205 03/04/22 15:17: Glucometer 187 03/04/22 20:10: Glucometer 205 03/05/22 06:23: Glucometer 165 03/05/22 11:19: Glucometer 239 03/05/22 15:10: Glucometer 204 03/05/22 16:10: Vancomycin Level Trough 23.0 03/05/22 20:31: Glucometer 227 03/06/22 05:10: White Blood Count 20.1, Red Blood Count 4.20, Hemoglobin 10.2, Hematocrit 35, Mean Corpuscular Volume 84, Mean Corpuscular Hemoglobin 24, Mean Corpuscular Hemoglobin Concent 29, Red Cell Distribution Width 18.7, Platelet Count 364, Mean Platelet Volume 10.6, Immature Granulocyte % (Auto) 2, Neutrophils (%) (Auto) 90, Lymphocytes (%) (Auto) 4, Monocytes (%) (Auto) 3, Eosinophils (%) (Auto) 0, Basophils (%) (Auto) 0, Neutrophils # (Auto) 18.2, Lymphocytes # (Auto) 0.8, Monocytes # (Auto) 0.6, Eosinophils # (Auto) 0.1, Basophils # (Auto) 0.1, Immature Granulocyte # (Auto) 0.4, Sodium Level 139, Potassium Level 3.9, Chloride Level 101, Carbon Dioxide Level 26, Anion Gap 12, Blood Urea Nitrogen 9, Creatinine 0.67, Estimat Glomerular Filtration Rate 100, BUN/Creatinine Ratio 13, Glucose Level 241, Calcium Level 9.2, Corrected Calcium 10.1, Total B ilirubin 0.4, Aspartate Amino Transf (AST/SGOT) 22, Alanine Aminotransferase (ALT/SGPT) 31, Alkaline Phosphatase 97, B-Type Natriuretic Peptide 913.4, Total Protein 6.6, Albumin 2.9 03/06/22 06:51: Procalcitonin 0.07 03/06/22 08:46: Blood Gas Puncture Site L RAD, Blood Gas Patient Temperature 37, Arterial Blood pH 7.40, Arterial Blood Partial Pressure CO2 52, Arterial Blood Partial Pressure O2 79, Arterial Blood HCO3 31, Arterial Blood Total CO2 33.0, Arterial Blood Oxygen Saturation 96, Arterial Blood Base Excess 6.6, Ramesh Test YES-POS, Blood Gas Ventilator Setting NO, Blood Gas Inspired Oxygen 3 03/06/22 08:55: Lactic Acid Level 1.28 03/06/22 10:54: Glucometer 253 03/06/22 15:22: Glucometer 185 03/06/22 20:10: Glucometer 218 03/07/22 05:28: White Blood Count 12.9, Red Blood Count 3.90, Hemoglobin 9.5, Hematocrit 32, Mean Corpuscular Volume 83, Mean Corpuscular Hemoglobin 24, Mean Corpuscular Hemoglobin Concent 29, Red Cell Distribution Width 18.6, Platelet Count 348, Mean Platelet Volume 10.4, Sodium Level 143, Potassium Level 3.6, Chloride Level 101, Carbon Dioxide Level 29, Anion Gap 13, Blood Urea Nitrogen 9, Creatinine 0.67, Estimat Glomerular Filtration Rate 100, BUN/Creatinine Ratio 13, Glucose Level 188, Calcium Level 9.1, Magnesium Level 1.6 03/07/22 10:54: Glucometer 199 03/07/22 15:33: Glucometer 173 03/07/22 20:10: Glucometer 200 03/08/22 05:47: Glucometer 166 03/08/22 06:25: White Blood Count 14.7, Red Blood Count 3.92, Hemoglobin 9.7, Hematocrit 33, Mean Corpuscular Volume 83, Mean Corpuscular Hemoglobin 25, Mean Corpuscular Hemoglobin Concent 30, Red Cell Distribution Width 18.6, Platelet Count 359, Mean Platelet Volume 10.4, Immature Granulocyte % (Auto) 1, Neutrophils (%) (Auto) 88, Lymphocytes (%) (Auto) 6, Monocytes (%) (Auto) 4, Eosinophils (%) (Auto) 1, Basophils (%) (Auto) 0, Neutrophils # (Auto) 13.0, Lymphocytes # (Auto) 0.9, Monocytes # (Auto) 0.5, Eosinophils # (Auto) 0.1, Basophils # (Auto) 0.1, Immature Granulocyte # (Auto) 0.1, Neutrophils % (Manual) 90, Lymphocytes % (Manual) 8, Monocytes % (Manual) 2, Hypochromasia MODERATE, Poikilocytosis , Anisocytosis SLIGHT, Microcytosis SLIGHT, Stomatocytes SLIGHT, Sodium Level 141, Potassium Level 4.0, Chloride Level 99, Carbon Dioxide Level 31, Anion Gap 11, Blood Urea Nitrogen 10, Creatinine 0.69, Estimat Glomerular Filtration Rate 99, BUN/Creatinine Ratio 14, Glucose Level 206, Calcium Level 9.3, Corrected Calcium 10.3, Total Bilirubin 0.4, Aspartate Amino Transf (AST/SGOT) 19, Alanine Aminotransferase (ALT/SGPT) 21, Alkaline Phosphatase 79, Total Protein 6.3, Albumin 2.8 03/08/22 11:01: Glucometer 219 03/08/22 16:20: Glucometer 166 03/08/22 20:25: Glucometer 170 03/09/22 05:49: Glucometer 134 03/09/22 06:20: White Blood Count 14.0, Red Blood Count 3.81, Hemoglobin 9.3, Hematocrit 32, Mean Corpuscular Volume 83, Mean Corpuscular Hemoglobin 24, Mean Corpuscular Hemoglobin Concent 29, Red Cell Distribution Width 18.5, Platelet Count 355, Mean Platelet Volume 10.6, Immature Granulocyte % (Auto) 1, Neutrophils (%) (Auto) 89, Lymphocytes (%) (Auto) 6, Monocytes (%) (Auto) 4, Eosinophils (%) (Auto) 1, Basophils (%) (Auto) 0, Neutrophils # (Auto) 12.4, Lymphocytes # (Auto) 0.8, Monocytes # (Auto) 0.5, Eosinophils # (Auto) 0.1, Basophils # (Auto) 0.1, Immature Granulocyte # (Auto) 0.1, Sodium Level 140, Potassium Level 3.7, Chloride Level 99, Carbon Dioxide Level 31, Anion Gap 10, Blood Urea Nitrogen 11, Creatinine 0.76, Estimat Glomerular Filtration Rate 96, BUN/Creatinine Ratio 14, Glucose Level 151, Calcium Level 9.1, Corrected Calcium 10.1, Total Bilirubin 0.4, Aspartate Amino Transf (AST/SGOT) 15, Alanine Aminotransferase (ALT/SGPT) 18, Alkaline Phosphatase 71, Total Protein 6.1, Albumin 2.7 03/09/22 10:45: Glucometer 178 03/09/22 15:57: Glucometer 171 03/09/22 20:20: Glucometer 180 03/10/22 05:28: Glucometer 107 03/10/22 10:58: Glucometer 190 03/10/22 15:17: Glucometer 172 03/10/22 20:34: Glucometer 233 03/11/22 05:35: White Blood Count 11.2, Red Blood Count 3.67, Hemoglobin 9.0, Hematocrit 31, Mean Corpuscular Volume 84, Mean Corpuscular Hemoglobin 25, Mean Corpuscular Hemoglobin Concent 29, Red Cell Distribution Width 18.6, Platelet Count 327, Mean Platelet Volume 10.9, Immature Granulocyte % (Auto) 1, Neutrophils (%) (Auto) 85, Lymphocytes (%) (Auto) 7, Monocytes (%) (Auto) 6, Eosinophils (%) (Auto) 1, Basophils (%) (Auto) 1, Neutrophils # (Auto) 9.5, Lymphocytes # (Auto) 0.8, Monocytes # (Auto) 0.7, Eosinophils # (Auto) 0.2, Basophils # (Auto) 0.1, Immature Granulocyte # (Auto) 0.1, Sodium Level 144, Potassium Level 3.7, Chloride Level 102, Carbon Dioxide Level 29, Anion Gap 13, Blood Urea Nitrogen 10, Creatinine 0.76, Estimat Glomerular Filtration Rate 96, BUN/Creatinine Ratio 13, Glucose Level 102, Calcium Level 9.0, Corrected Calcium 10.0, Total Bilirubin 0.3, Aspartate Amino Transf (AST/SGOT) 16, Alanine Aminotransferase (ALT/SGPT) 17, Alkaline Phosphatase 66, Total Protein 6.0, Albumin 2.7 03/11/22 11:16: Glucometer 192 03/11/22 16:00: Glucometer 173 03/11/22 20:41: Glucometer 174 03/12/22 05:01: Glucometer 112 03/12/22 11:06: Glucometer 159 03/12/22 15:26: Glucometer 170 03/12/22 20:08: Glucometer 174 03/13/22 04:05: White Blood Count 10.9, Red Blood Count 3.59, Hemoglobin 8.8, Hematocrit 30, Mean Corpuscular Volume 85, Mean Corpuscular Hemoglobin 25, Mean Corpuscular Hemoglobin Concent 29, Red Cell Distribution Width 19.3, Platelet Count 295, Mean Platelet Volume 10.5, Immature Granulocyte % (Auto) 1, Neutrophils (%) (Auto) 81, Lymphocytes (%) (Auto) 9, Monocytes (%) (Auto) 7, Eosinophils (%) (Auto) 2, Basophils (%) (Auto) 1, Neutrophils # (Auto) 8.8, Lymphocytes # (Auto) 1.0, Monocytes # (Auto) 0.8, Eosinophils # (Auto) 0.2, Basophils # (Auto) 0.1, Immature Granulocyte # (Auto) 0.1, Sodium Level 142, Potassium Level 3.7, Chloride Level 102, Carbon Dioxide Level 29, Anion Gap 11, Blood Urea Nitrogen 13, Creatinine 0.78, Estimat Glomerular Filtration Rate 95, BUN/Creatinine Ratio 17, Glucose Level 110, Calcium Level 9.2, Corrected Calcium 10.2, Total Bilirubin 0.4, Aspartate Amino Transf (AST/SGOT) 19, Alanine Aminotransferase (ALT/SGPT) 13, Alkaline Phosphatase 63, Total Protein 6.2, Albumin 2.8 03/13/22 10:39: Glucometer 249 03/13/22 15:26: Glucometer 183 03/13/22 20:07: Glucometer 146 03/14/22 05:31: Glucometer 110 03/14/22 10:51: Glucometer 226 03/14/22 15:33: Glucometer 178 03/14/22 20:08: Glucometer 193 03/15/22 05:32: Glucometer 113 03/15/22 17:47: Lab Scanned Report Transfusion Reaction Form Discharge Home Medications: Active Scripts Active Vitamin B-12 (Cyanocobalamin (Vitamin B-12)) 1,000 Mcg Tablet 1,000 Mcg PO DAILY@0700 Klor-Con 10 (Potassium Chloride) 10 Meq Tablet.er 10 Meq PO BID Metoprolol Succinate 50 Mg Tab.er.24h 50 Mg PO DAILY Eliquis (Apixaban) 5 Mg Tablet 5 Mg PO BID Euthyrox (Levothyroxine Sodium) 100 Mcg Tablet 100 Mcg PO DAILY Amaryl (Glimepiride) 1 Mg Tab 0.5 Mg PO DAILY@0630 Metformin HCl 500 Mg Tablet 500 Mg PO BID@07,17 Hydrocodone-Acetamin 10-325 mg (Hydrocodone/Acetaminophen) 10 Mg-325 Mg Tablet 1 Each PO Q8H PRN Docusate Sodium 100 Mg Capsule 100 Mg PO BID PRN Pantoprazole Sodium 40 Mg Tablet.dr 40 Mg PO DAILY Amiodarone HCl 200 Mg Tablet 200 Mg PO DAILY Furosemide 80 Mg Tablet 80 Mg PO DAILY Losartan Potassium 50 Mg Tablet 50 Mg PO DAILY Instructions to patient/family Please see electronic discharge instructions given to patient. Diagnosis/Problems Diagnosis/Problems (1) S/P AKA (above knee amputation) (2) Gangrene XIOMARA DICKENS DO Mar 15, 2022 06:18
[2022-03-15 07:27] VITALS: BP 143/65
[2022-03-15] MEDS: APIXABAN 5 MG (ELIQUIS) TABLET PO SCH (08:07)
[2022-03-15] MEDS: AMIODARONE 200 MG (CORDARONE) TAB PO SCH (08:07)
[2022-03-15] MEDS: meTOproloL SUCCINATE 50 MG (TOPROL XL) TAB PO SCH (08:07)
[2022-03-15] MEDS: LACTOBACILLUS ACIDOPHILUS (PROBIOTIC) CAPSULE PO SCH (08:08)
[2022-03-15] MEDS: KCL 10 MEQ TAB (MICRO K) PO SCH (08:08)
[2022-03-15] MEDS: LOSARTAN 50 MG (COZAAR) TAB PO SCH (08:08)
[2022-03-15] MEDS: PANTOPRAZOLE 40 MG (PROTONIX) TAB PO SCH (08:08)
[2022-03-15] MEDS: FUROSEMIDE 40 MG (LASIX) TAB PO SCH (08:08)
[2022-03-15] MEDS: DOCUSATE SODIUM 100 MG (COLACE) CAP PO SCH (08:09)
[2022-03-15] MEDS: polyethylene glycoL POWDER 17 GM (MIRALAX) PACK PO SCH (08:09)
[2022-03-15] MEDS: SENNA W/DOCUSATE (SENOKOT S) TABLET PO SCH (08:09)
--- NOTE | 2022-03-15 11:18 | Therapy Team Discharge Summary ---
Therapy Discharge Summary Discharge Recommendations Date of Discharge Physical Therapy Patient came to rehab with left AKA. Upon evaluation patient performs rolling with min assist, supine <-> sit mod assist, sit <-> stand max assist, transfer with sliding board max assist, car transfer max assist, and propel a manual WC 100' with SBA. Patient has been performing bed mobility and transfer training, balance and endurance training, functional strengthening, gait training, and education. Patient has made little progress but has been able to ambulate a few feet in the parallel bars. 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 Now, patient performs rolling and supine <-> sit with min/mod assist, sit <-> stand and transfers with max assist, car transfer max assist, ambulates 8' in the parallel bars, and propels a manual WC at least 150' with SBA. Patient is being discharged from this facility today and will be discharged from PT at this time. Roll Left to Right (QC): 3 Sit to Lying (QC): 3 Lying to Sitting/Side of Bed(Q: 3 Sit to Stand (QC): 3 (x 3 sets in //bars) Chair/Jcd-sb-Osbnh Xfer(QC): 2 Toilet Transfer (QC): 1 Car Transfer (QC): 2 Does the Patient Walk: Yes Walk 10 feet (QC): 88 Walk 50 ft with 2 Turns(QC): 88 Walk 150 ft (QC): 88 Walking 10ft on uneven surface: 88 Gait Assistive Device: Parallel Bars Does the Pt Use a Wheelchair: Yes Wheelchair Distance: 100'x2 Wheel 50 ft with 2 turns (QC): 4 Wheel 150 ft (QC): 4 Type of Wheelchair: Manual #of Steps: 1 1 Step (curb) (QC): 2 4 Steps (QC): 88 12 Steps (QC): 88 Balance Sitting Static: Fair Balance Sitting Dynamic: Fair Balance-Standing Static: Poor Picking up an Object (QC): 88 Occupational Therapy Decreased Activ Tolerance, Decreased UE Strength, Dependent Transfers, Impaired Bed Mobility, Impaired Cognition, Impaired Coordination, Impaired Funct Balance, Impaired I ADL's, Impaired Self-Care Skills, Restricted Funct UE ROM Eating (QC): 6 Oral Hygiene (QC): 6 Shower/Bathe Self (QC): 3 Upper Body Dressing (QC): 3 Lower Body Dressing (QC): 3 (mod A) On/Off Footwear (QC): 5 Toileting Hygiene (QC): 1 PT Detention Goals Detention Goals PT Rouge Sifter Goals Time Frame: Mar 17, 2022 Roll Left to Right (QC): 6 Sit to Lying (QC): 4 (SBA) Lying-Sitting on Side/Bed(QC): 4 (SBA) Sit to Stand (QC): 3 (Batsheva) Chair/Bzd-de-Tsgvq Xfer(QC): 3 (Batsheva) Car Transfer (QC): 3 (Batsheva) Does the Patient Walk: No and Walking Goal NOT indicated Walk 10 feet (QC): 88 Walk 10ft-Uneven Surface(QC): 88 Walk 50ft with 2 Turns (QC): 88 Walk 150 ft (QC): 88 Wheel 50 feet with 2 turns (QC: 6 1 Step (curb) (QC): 88 4 Steps (QC): 88 12 Steps (QC): 88 Picking up an Object (QC): 88 OT Detention Goals Rouge Sifter Goals Time Frame: Mar 24, 2022 Eating (QC): 6 Oral Hygiene (QC): 6 Shower/Bathe Self (QC): 4 Upper Body Dressing (QC): 5 Lower Body Dressing (QC): 3 On/Off Footwear (QC): 4 Toileting Hygiene (QC): 3 (bowel movements on toilet) Toilet/Commode Transfer (QC): 3 (Batsheva) Additional Goals: 1-Demonstrate ADL Tasks, 2-Verbalize Understanding, 3- ImproveStrength/Lalit 1=Demonstrate adherence to instructed precautions during ADL tasks. 2=Patient will verbalize/demonstrate understanding of assistive devices/modifications for ADL. 3=Patient will improve strength/tolerance for activity to enable patient to perform ADL's. JESSICA FOX PT Mar 15, 2022 11:18
--- NOTE | 2022-03-15 11:25 | Therapy Team Discharge Summary ---
Therapy Discharge Summary Discharge Recommendations Date of Discharge Physical Therapy Roll Left to Right (QC): 3 Sit to Lying (QC): 3 Lying to Sitting/Side of Bed(Q: 3 Sit to Stand (QC): 3 (x 3 sets in //bars) Chair/Zom-ap-Lgrua Xfer(QC): 2 Toilet Transfer (QC): 1 Car Transfer (QC): 2 Does the Patient Walk: Yes Walk 10 feet (QC): 88 Walk 50 ft with 2 Turns(QC): 88 Walk 150 ft (QC): 88 Walking 10ft on uneven surface: 88 Gait Assistive Device: Parallel Bars Does the Pt Use a Wheelchair: Yes Wheelchair Distance: 100'x2 Wheel 50 ft with 2 turns (QC): 4 Wheel 150 ft (QC): 4 Type of Wheelchair: Manual #of Steps: 1 1 Step (curb) (QC): 2 4 Steps (QC): 88 12 Steps (QC): 88 Balance Sitting Static: Fair Balance Sitting Dynamic: Fair Balance-Standing Static: Poor Picking up an Object (QC): 88 Occupational Therapy Pt presented to [facility] s/p Annabella HEIN. At PLOF, pt required assistance from with ADLs (showering, dressing, and footwear) and IADLs, and used a w/c for functional mobility. At eval, pt scored setup with eating and oral care while seated, assist x2 for showering, toileting, and LBD, mod A with UBD, and total A with footwear. OT tx focused on increasing IND in ADLs, activity tolerance, functional mobility, and BUE strength and endurance. Pt made functional progress towards goals, meeting 11/24. OT does not have any further DME or AE recommendations at this time. Pt is being d/c home to spouse. D/c from skilled OT services at this time. 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 Goals Heel Coverer Machine Operator Goals PT Heel Coverer Machine Operator Goals Time Frame: Mar 17, 2022 Roll Left to Right (QC): 6 Sit to Lying (QC): 4 (SBA) Lying-Sitting on Side/Bed(QC): 4 (SBA) Sit to Stand (QC): 3 (Batsheva) Chair/Vuo-xw-Qmayu Xfer(QC): 3 (Batsheva) Car Transfer (QC): 3 (Batsheva) Does the Patient Walk: No and Walking Goal NOT indicated Walk 10 feet (QC): 88 Walk 10ft-Uneven Surface(QC): 88 Walk 50ft with 2 Turns (QC): 88 Walk 150 ft (QC): 88 Wheel 50 feet with 2 turns (QC: 6 1 Step (curb) (QC): 88 4 Steps (QC): 88 12 Steps (QC): 88 Picking up an Object (QC): 88 OT Heel Coverer Machine Operator Goals Heel Coverer Machine Operator Goals Time Frame: Mar 24, 2022 Eating (QC): 6 Oral Hygiene (QC): 6 Shower/Bathe Self (QC): 4 Upper Body Dressing (QC): 5 Lower Body Dressing (QC): 3 On/Off Footwear (QC): 4 Toileting Hygiene (QC): 3 (bowel movements on toilet) Toilet/Commode Transfer (QC): 3 (Batsheva) Additional Goals: 1-Demonstrate ADL Tasks, 2-Verbalize Understanding, 3- ImproveStrength/Lalit 1=Demonstrate adherence to instructed precautions during ADL tasks. 2=Patient will verbalize/demonstrate understanding of assistive devices/modifications for ADL. 3=Patient will improve strength/tolerance for activity to enable patient to perform ADL's. OCTAVIA ORLANDO OT Mar 15, 2022 11:25
[2022-03-15 13:00] VITALS: BP 143/65
== END 2022-03-15 13:00 | disposition home health service (06) | DRG 559 ==
PROVIDERS: ADMIT Internal Medicine; ATTEND Internal Medicine
DX: Z47.81 Encounter for orthopedic aftercare following surgical amputation (principal); I50.43 Acute on chronic combined systolic (congestive) and diastolic (congestive) heart failure; T87.44 Infection of amputation stump, left lower extremity; Z89.612 Acquired absence of left leg above knee; S49.92XD Unspecified injury of left shoulder and upper arm, subsequent encounter; E11.40 Type 2 diabetes mellitus with diabetic neuropathy, unspecified; I73.9 Peripheral vascular disease, unspecified; I48.0 Paroxysmal atrial fibrillation; I25.10 Atherosclerotic heart disease of native coronary artery without angina pectoris; E78.00 Pure hypercholesterolemia, unspecified; N40.0 Benign prostatic hyperplasia without lower urinary tract symptoms; K21.9 Gastro-esophageal reflux disease without esophagitis; M19.91 Primary osteoarthritis, unspecified site; E03.9 Hypothyroidism, unspecified; K59.00 Constipation, unspecified; F32.A Depression, unspecified; D50.9 Iron deficiency anemia, unspecified; I11.0 Hypertensive heart disease with heart failure; I95.9 Hypotension, unspecified; R32 Unspecified urinary incontinence; I25.5 Ischemic cardiomyopathy; B96.5 Pseudomonas (aeruginosa) (mallei) (pseudomallei) as the cause of diseases classified elsewhere; Z79.01 Long term (current) use of anticoagulants; Z79.84 Long term (current) use of oral hypoglycemic drugs; Z87.891 Personal history of nicotine dependence; I25.2 Old myocardial infarction; Z88.8 Allergy status to other drugs, medicaments and biological substances; Z88.5 Allergy status to narcotic agent; Z95.820 Peripheral vascular angioplasty status with implants and grafts; Z95.1 Presence of aortocoronary bypass graft; W19.XXXD Unspecified fall, subsequent encounter
CPT/HCPCS: 36415; 36569; 71045; 76937; 80048; 80053; 80202; 81000; 82607; 82805; 82947; 83540; 83605; 83735; 83880; 84145; 85007; 85025; 85027; 86850; 86900; 86901; 86920; 87040; 87070; 87077; 87186; 87205; 93005; 93306; 94760; 94761